=== PATIENT | female | born 1935 | race African-American/Black ===

== ENCOUNTER → 2016-05-24 | Outpatient (CLI) | payer MEDICARE, BC ==
[2016-05-24 12:56] LABS: Anisocytosis Slight; CH 23.4; CHCM 28.7; HCT 35.7 % (34.0-46.0); HGB 10.7 gm/dL (11.4-16.0); Hypochromasia Marked; MCH 24.6 pg (25.0-35.0); MCV 82.2 fL (80.0-100.0); Mean Platelet Volume 6.5; Microcytosis Slight; RBC 4.34 m/uL (3.80-5.40); WBC 4.6 k/uL (3.8-10.6)
[2016-05-24 13:06] LABS: ALT 26 U/L (9-52); AST 27 U/L (14-36); Alkaline Phosphatase 80 U/L (38-126); Anion Gap 10 mmol/L; Blood Urea Nitrogen 14 mg/dL (7-17); Calcium 9.6 mg/dL (8.4-10.2); Carbon Dioxide 29 mmol/L (22-30); Chloride 105 mmol/L (98-107); Cholesterol 115 mg/dL (<200); Glucose 86 mg/dL (74-99); HDL Cholesterol 42 mg/dL (40-60); Non-African American GFR(MDRD) >60 (>60 ml/min/1.73 sqM); Potassium 4.6 mmol/L (3.5-5.1); Sodium 144 mmol/L (137-145); Total Bilirubin 0.5 mg/dL (0.2-1.3); Total Protein 6.6 g/dL (6.3-8.2); Triglycerides 53 mg/dL (<150)
== END ==
LOC: LABWHC1 12:19
PROVIDERS: ATTEND Physician Assistant
DX: I27.2 Other secondary pulmonary hypertension (principal)
CPT/HCPCS: 36415; 80053; 80061; 84443; 85027

== ENCOUNTER 2016-08-18 18:32 | Inpatient (IN) | payer MEDICARE, BC ==
--- NOTE | 2016-08-18 18:47 | ED ---
Weakness HPI - General Chief complaint: Weakness Stated complaint: weakness Time Seen by Provider: 08/18/16 18:36 Source: patient, EMS Mode of arrival: EMS Limitations: no limitations - History of Present Illness Initial comments: This patient is an 81-year-old woman presenting by EMS because she has been feeling increasingly fatigued and having generalized weakness. Patient reports that they she felt like she had no energy at all and decided to be seen here. She was going to drive herself here but in getting ready she became diaphoretic and had some shortness of breath and then she called EMS. On the review of systems, the patient does note having some dark tarry stools recently. She has not had other symptoms of anemia, including no palpitations, lightheadedness, syncope or chest pain. The patient has not had any abdominal pain, nausea or vomiting. She has not passed bright red blood. MD Complaint: generalized weakness, lack of energy -: days(s) Location: generalized Consistency: constant Improves with: none Worsens with: exertion Associated Symptoms: dark stools, diaphoresis - Related Data Home Medications Medication Instructions Recorded Confirmed Ipratropium/Albuterol Sulfate 1 puff INHALATION BID 08/04/13 08/18/16 [Combivent Respimat Inhaler] Isosorbide Mononitrate ER [Imdur] 30 mg PO HS 08/04/13 08/18/16 Pravastatin Sodium [Pravachol] 40 mg PO HS 08/04/13 08/18/16 Aclidinium [place] [Tudorza 1 puff INHALATION BID 04/17/14 08/18/16 Pressair] Anastrozole [Arimidex] 1 mg PO HS 02/22/16 08/18/16 Ascorbic Acid [Vitamin C with Stacy 500 mg PO DAILY 02/22/16 08/18/16 Hips] Aspirin [Adult Low Dose Aspirin EC] 81 mg PO HS 02/22/16 08/18/16 Irbesartan [Avapro] 150 mg PO BID 02/22/16 08/18/16 PARoxetine HCL [Paxil] 10 mg PO HS 02/22/16 08/18/16 Rivaroxaban [Xarelto] 20 mg PO HS 02/22/16 08/18/16 Acetaminophen [Tylenol] 1,000 mg PO BID PRN 08/18/16 08/18/16 Latanoprost [Xalatan 0.005%] 1 drop BOTH EYES HS 08/18/16 08/18/16 Allergies Allergy/AdvReac Type Severity Reaction Status Date / Time No Known Allergies Allergy Verified 08/18/16 19:18 Review of Systems ROS Statement: Those systems with pertinent positive or pertinent negative responses have been documented in the HPI. ROS Other: All systems not noted in ROS Statement are negative. Constitutional: Denies: fever, chills Respiratory: Denies: cough, dyspnea Cardiovascular: Denies: chest pain, palpitations, orthopnea, edema, syncope Gastrointestinal: Reports: melena. Denies: abdominal pain, nausea, vomiting, diarrhea, hematochezia Genitourinary: Denies: dysuria Musculoskeletal: Denies: back pain Skin: Denies: rash Neurological: Denies: headache, weakness, numbness Hematological/Lymphatic: Reports: other (taking xarelto). 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,, emphysema; hypoglycemia, DVT DURING BACK SURGERY-" HIT AN ARTERY " and other from "low sodium", hx breast cancer, History of Any Multi-Drug Resistant Organisms: None Reported Past Surgical History: Back Surgery, Breast Surgery, Cholecystectomy, Heart Catheterization Additional Past Surgical History / Comment(s): L SUBCLAVIAN ARTERY BYPASS, Rt CAROTID ENDARTECTOMY, rt breast lumpectomy Past Anesthesia/Blood Transfusion Reactions: No Reported Reaction Additional Past Anesthesia/Blood Transfusion Reaction / Comment(s): PT RECIEVED BLOOD TRANSFUSION Past Psychological History: Anxiety Smoking Status: Former smoker Past Alcohol Use History: None Reported Past Drug Use History: None Reported - Past Family History Brother(s) Family Medical History: Cancer Sister(s) Family Medical History: Cancer Mother Family Medical History: Coronary Artery Disease (CAD) Additional Family Medical History / Comment(s): enlarged heart Father Family Medical History: Coronary Artery Disease (CAD), CVA/TIA General Exam Limitations: no limitations General appearance: alert, in no apparent distress Head exam: Present: atraumatic, normocephalic Eye exam: Present: other (Conjunctival pallor). Absent: scleral icterus, conjunctival injection ENT exam: Present: normal oropharynx, mucous membranes moist, other (Mucosal pallor) Neck exam: Present: normal inspection Respiratory exam: Present: normal lung sounds bilaterally. Absent: respiratory distress, wheezes, rales, rhonchi, stridor Cardiovascular Exam: Present: regular rate, normal rhythm, normal heart sounds. Absent: systolic murmur, diastolic murmur, rubs, gallop GI/Abdominal exam: Present: soft. Absent: distended, tenderness, guarding, rebound, mass Rectal exam: Present: normal inspection, normal rectal tone, black stool. Absent: hemorrhoids, tenderness Extremities exam: Present: normal inspection, normal capillary refill. Absent: pedal edema, calf tenderness Back exam: Present: normal inspection. Absent: CVA tenderness (R), CVA tenderness (L) Neurological exam: Present: alert Skin exam: Present: warm, dry, intact, pallor. Absent: rash Course Vital Signs 08/18/16 08/18/16 08/18/16 18:33 20:49 22:20 Temperature 98.6 F 97.8 F Pulse Rate 91 77 74 Respiratory 18 18 Rate Blood Pressure 132/60 126/60 139/64 O2 Sat by Pulse 92 L 98 99 Oximetry EKG Findings - EKG Results: EKG: interpreted by VENU GAN, sinus rhythm (Rate 95 bpm), normal axis, normal QRS, normal ST/T, no acute changes - HI, Pacemaker, Normal: Normal tracing: normal tracing Medical Decision Making - Lab Data Result diagrams: 08/18/16 21:14 08/18/16 20:30 Lab Results 08/18/16 08/18/16 08/18/16 Range/Units 20:30 21:14 21:14 WBC 8.8 (3.8-10.6) k/uL RBC 2.52 L (3.80-5.40) m/uL Hgb 5.9 L* (11.4-16.0) gm/dL Hct 21.0 L (34.0-46.0) % MCV 83.4 (80.0-100.0) fL MCH 23.4 L (25.0-35.0) pg MCHC 28.0 L (31.0-37.0) g/dL RDW 19.1 H (11.5-15.5) % Plt Count 313 (150-450) k/uL Neutrophils % 77 % Lymphocytes % 16 % Monocytes % 4 % Eosinophils % 1 % Basophils % 1 % Neutrophils # 6.8 (1.3-7.7) k/uL Lymphocytes # 1.4 (1.0-4.8) k/uL Monocytes # 0.4 (0-1.0) k/uL Eosinophils # 0.1 (0-0.7) k/uL Basophils # 0.1 (0-0.2) k/uL Hypochromasia Marked Poikilocytosis Slight Anisocytosis Slight Microcytosis Slight PT 15.3 H (9.0-12.0) sec INR 1.6 (<1.1) APTT 25.1 (22.0-30.0) sec Sodium 139 (137-145) mmol/L Potassium 4.5 (3.5-5.1) mmol/L Chloride 107 (98-107) mmol/L Carbon Dioxide 22 (22-30) mmol/L Anion Gap 10 mmol/L BUN 42 H (7-17) mg/dL Creatinine 0.84 (0.52-1.04) mg/dL Est GFR (MDRD) Af Amer >60 (>60 ml/min/1.73 sqM) Est GFR (MDRD) Non-Af >60 (>60 ml/min/1.73 sqM) Glucose 96 (74-99) mg/dL Plasma Lactic Acid Jaylon (0.7-2.0) mmol/L Calcium 8.2 L (8.4-10.2) mg/dL Total Bilirubin 0.6 (0.2-1.3) mg/dL AST 73 H (14-36) U/L ALT <6 L (9-52) U/L Alkaline Phosphatase 75 (38-126) U/L Troponin I (0.000-0.034) ng/mL Total Protein 5.6 L (6.3-8.2) g/dL Albumin 3.3 L (3.5-5.0) g/dL Blood Type Blood Type Recheck Antibody Screen Crossmatch Spec Expiration Date 08/18/16 08/18/16 08/18/16 Range/Units 21:14 21:14 21:14 WBC (3.8-10.6) k/uL RBC (3.80-5.40) m/uL Hgb (11.4-16.0) gm/dL Hct (34.0-46.0) % MCV (80.0-100.0) fL MCH (25.0-35.0) pg MCHC (31.0-37.0) g/dL RDW (11.5-15.5) % Plt Count (150-450) k/uL Neutrophils % % Lymphocytes % % Monocytes % % Eosinophils % % Basophils % % Neutrophils # (1.3-7.7) k/uL Lymphocytes # (1.0-4.8) k/uL Monocytes # (0-1.0) k/uL Eosinophils # (0-0.7) k/uL Basophils # (0-0.2) k/uL Hypochromasia Poikilocytosis Anisocytosis Microcytosis PT (9.0-12.0) sec INR (<1.1) APTT (22.0-30.0) sec Sodium (137-145) mmol/L Potassium (3.5-5.1) mmol/L Chloride (98-107) mmol/L Carbon Dioxide (22-30) mmol/L Anion Gap mmol/L BUN (7-17) mg/dL Creatinine (0.52-1.04) mg/dL Est GFR (MDRD) Af Amer (>60 ml/min/1.73 sqM) Est GFR (MDRD) Non-Af (>60 ml/min/1.73 sqM) Glucose (74-99) mg/dL Plasma Lactic Acid Jaylon 1.4 (0.7-2.0) mmol/L Calcium (8.4-10.2) mg/dL Total Bilirubin (0.2-1.3) mg/dL AST (14-36) U/L ALT (9-52) U/L Alkaline Phosphatase (38-126) U/L Troponin I 0.046 H* (0.000-0.034) ng/mL Total Protein (6.3-8.2) g/dL Albumin (3.5-5.0) g/dL Blood Type O Positive Blood Type Recheck No Antibody Screen NEGATIVE Crossmatch See Detail Spec Expiration Date 08/21/2016 - 2313 Disposition Clinical Impression: Anemia, GI bleeding Disposition: ADMITTED IP TO THIS HOSP Condition: Fair
[2016-08-18] MEDS ORDERED: SODIUM CHLORIDE 0.9% 500 ML IV STA (19:13)
[2016-08-18] MEDS ORDERED: PANTOPRAZOLE 40 MG/10 ML VIAL IVP STA (19:13)
--- NOTE | 2016-08-18 20:26 | XR ---
EXAMINATION TYPE: XR chest 1V portable DATE OF EXAM: 08/18/2016 COMPARISON: 04/20/2014 HISTORY: Weakness TECHNIQUE: Single frontal view of the chest is obtained. FINDINGS: There is no heart failure nor confluent pneumonic infiltrate. There are chest leads. Thora cic aorta is atheromatous. There is no definite pleural effusion. There is mild linear density at the right lung base. IMPRESSION: There is probably some atelectasis at the right lung base. No heart failure. There is ov erall probably no change compared to old exam.
[2016-08-18 21:08] LABS: ALT <6 U/L (9-52); AST 73 U/L (14-36); Alkaline Phosphatase 75 U/L (38-126); Anion Gap 10 mmol/L; Blood Urea Nitrogen 42 mg/dL (7-17); Calcium 8.2 mg/dL (8.4-10.2); Carbon Dioxide 22 mmol/L (22-30); Chloride 107 mmol/L (98-107); Glucose 96 mg/dL (74-99); Non-African American GFR(MDRD) >60 (>60 ml/min/1.73 sqM); Potassium 4.5 mmol/L (3.5-5.1); Sodium 139 mmol/L (137-145); Total Bilirubin 0.6 mg/dL (0.2-1.3); Total Protein 5.6 g/dL (6.3-8.2)
[2016-08-18 21:25] LABS: Anisocytosis Slight; Basophils # (A) 0.1 k/uL (0-0.2); Basophils % (A) 1 %; CH 22.4; Eosinophils # (A) 0.1 k/uL (0-0.7); Eosinophils % (A) 1 %; HDW 3.59; Hypochromasia Marked; Luc # (Auto) 0.18; Luc % (Auto) 2; Lymphocytes # (A) 1.4 k/uL (1.0-4.8); Lymphocytes % (A) 16 %; MCH 23.4 pg (25.0-35.0); MCV 83.4 fL (80.0-100.0); Mean Platelet Volume 6.6; Microcytosis Slight; Monocytes # (A) 0.4 k/uL (0-1.0); Monocytes % (A) 4 %; Neutrophils # (A) 6.8 k/uL (1.3-7.7); Neutrophils % (A) 77 %; Poikilocytosis Slight; RBC 2.52 m/uL (3.80-5.40); RDW 19.1 % (11.5-15.5); WBC 8.8 k/uL (3.8-10.6); WBC (Perox) 8.82
[2016-08-18 21:38] LABS: HGB 5.9 gm/dL (11.4-16.0); INR 1.6 (<1.1); Partial Thromboplastin Time 25.1 sec (22.0-30.0); Prothrombin Time 15.3 sec (9.0-12.0)
[2016-08-18] MEDS ORDERED: NALOXONE 0.4 MG/ML 1 ML VIAL IV PRN (21:49)
[2016-08-18] MEDS ORDERED: ONDANSETRON 4 MG/2 ML VIAL IVP PRN (21:49)
[2016-08-18] MEDS ORDERED: SODIUM CHLORIDE 0.9% 1,000 ML IV SCH (22:00)
[2016-08-19 00:07] VITALS: BMI 26.2
[2016-08-19] MEDS: DEXTROSE 5%-0.45% NACL 1,000 ML IV SCH ×2 (06:52→16:54)
[2016-08-19] MEDS: IPRATROPIUM-ALBUTEROL 3 ML NEB INHALATION SCH ×2 (07:16→19:29)
[2016-08-19] MEDS ORDERED: TIOTROPIUM 18 MCG/PUFF INHALER INHALATION SCH (08:00)
[2016-08-19] MEDS: PANTOPRAZOLE 40 MG/10 ML VIAL IV SCH (08:10)
[2016-08-19] MEDS: LOSARTAN 50 MG TAB PO SCH ×2 (08:11→20:42)
[2016-08-19 08:40] LABS: Anisocytosis Slight; CH 24.1; CHCM 30.3; HDW 4.79; Hypochromasia Marked; MCH 25.5 pg (25.0-35.0); MCHC 31.9 g/dL (31.0-37.0); MCV 80.1 fL (80.0-100.0); Mean Platelet Volume 7.5; Microcytosis Slight; Poikilocytosis Marked; RBC 2.36 m/uL (3.80-5.40); RDW 19.2 % (11.5-15.5); WBC 8.7 k/uL (3.8-10.6)
[2016-08-19 08:42] LABS: HCT 18.9 % (34.0-46.0)
[2016-08-19 10:05] LABS: Anion Gap 5 mmol/L; Blood Urea Nitrogen 38 mg/dL (7-17); Calcium 7.9 mg/dL (8.4-10.2); Carbon Dioxide 24 mmol/L (22-30); Chloride 113 mmol/L (98-107); Glucose 84 mg/dL (74-99); Non-African American GFR(MDRD) >60 (>60 ml/min/1.73 sqM); Potassium 4.2 mmol/L (3.5-5.1); Sodium 142 mmol/L (137-145)
[2016-08-19] MEDS: ASCORBIC ACID 500 MG TAB PO SCH (11:12)
--- NOTE | 2016-08-19 12:31 | CONS ---
DATE OF CONSULTATION: REASON FOR CONSULTATION: Severe symptomatic anemia and melena. HISTORY OF PRESENT ILLNESS: The patient is an 81-year-old pleasant female came to the emergency room complaining of tired, weakness, not feeling well, unsteady for the last one month duration. She was also complaining of black, tarry stools for the last 2 days' duration. She has history of DVT in the past and has been on Xarelto for the last one year. T he last dose she took was yesterday evening. She came to the ER and was noted to have a hemoglobin of 5.6 and so far has had 15 units of blood transfusion and repeat CBC is pending. Denies any prior history of peptic ulcer disease. No recent NSAID use other than occasional Motrin as needed. No prior history of peptic ulcer disease. She recalls having a colonoscopy about a year ago in [place] and according to her was noted to have a polyp. Presently denies any abdominal pain. No nausea or vomiting. No heartburn. PAST MEDICAL HISTORY: Significant for COPD, hypertension, hypercholesterolemia, history of breast cancer, anxiety, depression, DVT., CVA in the past. MEDICATIONS AT HOME: Tylenol, Xarelto, Paxil, Avapro, aspirin, vitamin C, ( ), Tudorza, albuterol, Pravachol and Imdur. ALLERGIES: None. PAST SURGICAL HISTORY: Back surgery, colonoscopy a year ago, cholecystectomy, cardiac cath, subclavian artery bypass. FAMILY HISTORY: Brother had some kind of cancer. Mother had coronary artery disease and congestive heart failure. SOCIAL HISTORY: No smoking or alcohol use. REVIEW OF SYSTEMS: CARDIOPULMONARY: No chest pain or shortness of breath. GENITOURINARY: No dysuria or hematuria. MUSCULOSKELETAL: Unremarkable. SKIN: Unremarkable. ENDOCRINE: Unremarkable. PSYCHIATRIC: Unremarkable. NEUROLOGY: Unremarkable. ENT: Unremarkable. CONSTITUTIONAL: No recent weight loss. No fever, chills, night sweats On physical examination, she appears comfortable, in no apparent distress. Vitals as are stable. Blood is 148/65, temperature 98 and pulse 86. HEENT EXAMINATION: Unremarkable. Conjunctivae pink. Sclerae anicteric. Oral cavity, no lesions. NECK: No JVD or lymph node enlargement. CHEST: Clear to auscultation. HEART: Regular rate and rhythm. ABDOMEN: Soft. Bowel sounds are positive. No organomegaly. EXTREMITIES: No pedal edema. SKIN: No rashes. NEURO: She is alert and oriented x3. No focal deficits. Labs from yesterday, WBC 8.8, hemoglobin 5.9, and platelets 313. PT 15.3, INR 1.6, BUN is 32, creatinine 0.8. LFTs are normal. Troponin 0.046. Stool occult test positive. Repeat CBC from this morning is pending. IMPRESSION: 1. This lady presented with severe fatigue, weakness for the last 2 weeks' duration and hemoglobin of 5.6 g/dL. She has been having intermittent black, tarry stools for the last 2 days' duration, most likely upper gastrointestinal source of bleeding though she remains clinically and hemodynamically stable. She received 1 unit of blood and repeat CBC is still pending at the time of this dictation. 2. History of DVT on Xarelto. The last dose was last night. Presently on hold. RECOMMENDATIONS: 1. Continue with IV Protonix 40 mg q.12. 2. Start on clear liquid diet. 3. Will proceed with an upper endoscopy tomorrow. 4. Discussed with the patient risks, benefits and complications and she is agreeable to it. 5. Transfuse as needed if the hemoglobin is less than 7. Thank you for this consultation.
--- NOTE | 2016-08-19 12:31 | P.HPIM ---
History of Present Illness H&P Date: 08/19/16 Chief Complaint: Generalized fatigue This is a 81-year-old female with past medical history noted below significant for history of DVT involving the left lower extremity on anticoagulation with Rivaroxaban and at home who presented to the emergency room with worsening fatigue and tiredness. Patient said for the past several weeks she noted low energy and generalized fatigue. She said that she was wanting normal bowel movement but occasionally maybe once or twice she noted black tarry stool. She denies any bright red blood in stool. She denies chest pain or shortness of breath. Yesterday she was more fatigued and tired and decided to come to the emergency room for further evaluation. CBC in the emergency room showed hemoglobin of 5.9. Patient was hemodynamically stable. She was in no distress. She was admitted to the hospital for further evaluation. She received 1 unit of PRBC while since admission with no significant improvement in her hemoglobin. I ordered 2 more unit this morning. Review of Systems Review of system: 14 points review of systems were obtained and were negative except to what were mentioned in the HPI. 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,, emphysema; hypoglycemia, DVT DURING BACK SURGERY-" HIT AN ARTERY " and other from "low sodium", hx breast cancer, History of Any Multi-Drug Resistant Organisms: None Reported Past Surgical History: Back Surgery, Breast Surgery, Cholecystectomy, Heart Catheterization Additional Past Surgical History / Comment(s): L SUBCLAVIAN ARTERY BYPASS, Rt CAROTID ENDARTECTOMY, rt breast lumpectomy Past Anesthesia/Blood Transfusion Reactions: No Reported Reaction Additional Past Anesthesia/Blood Transfusion Reaction / Comment(s): PT RECIEVED BLOOD TRANSFUSION Past Psychological History: Anxiety Smoking Status: Former smoker Past Alcohol Use History: None Reported Past Drug Use History: None Reported - Past Family History Brother(s) Family Medical History: Cancer Sister(s) Family Medical History: Cancer Mother Family Medical History: Coronary Artery Disease (CAD) Additional Family Medical History / Comment(s): enlarged heart Father Family Medical History: Coronary Artery Disease (CAD), CVA/TIA Medications and Allergies Home Medications Medication Instructions Recorded Confirmed Type Ipratropium/Albuterol Sulfate 1 puff INHALATION BID 08/04/13 08/18/16 History [Combivent Respimat Inhaler] Isosorbide Mononitrate ER [Imdur] 30 mg PO HS 08/04/13 08/18/16 History Pravastatin Sodium [Pravachol] 40 mg PO HS 08/04/13 08/18/16 History Aclidinium [place] [Tudorza 1 puff INHALATION BID 04/17/14 08/18/16 History Pressair] Anastrozole [Arimidex] 1 mg PO HS 02/22/16 08/18/16 History Ascorbic Acid [Vitamin C with Stacy 500 mg PO DAILY 02/22/16 08/18/16 History Hips] Aspirin [Adult Low Dose Aspirin EC] 81 mg PO HS 02/22/16 08/18/16 History Irbesartan [Avapro] 75 mg PO DAILY 02/22/16 08/19/16 History PARoxetine HCL [Paxil] 10 mg PO HS 02/22/16 08/18/16 History Rivaroxaban [Xarelto] 20 mg PO HS 02/22/16 08/18/16 History Acetaminophen [Tylenol] 1,000 mg PO BID PRN 08/18/16 08/18/16 History Latanoprost [Xalatan 0.005%] 1 drop BOTH EYES HS 08/18/16 08/18/16 History Allergies Allergy/AdvReac Type Severity Reaction Status Date / Time No Known Allergies Allergy Verified 08/18/16 19:18 Physical Exam Vitals: Vital Signs Temp Pulse Pulse Resp BP BP Pulse Ox 08/19/16 11:09 98.2 F 72 16 147/68 08/19/16 10:39 98.3 F 65 16 137/63 08/19/16 09:58 98.2 F 75 16 144/65 08/19/16 08:00 86 16 08/19/16 07:25 84 08/19/16 07:16 84 08/19/16 07:00 98.2 F 86 16 148/65 90 L 08/19/16 02:51 98.5 F 80 16 134/60 08/19/16 00:19 98.2 F 85 138/65 93 L 08/19/16 00:00 82 16 08/18/16 23:49 98.3 F 82 16 113/56 08/18/16 23:39 98.1 F 87 16 112/48 08/18/16 22:50 98.2 F 72 16 170/72 98 08/18/16 22:20 97.8 F 74 18 139/64 99 08/18/16 20:49 77 18 126/60 98 08/18/16 18:33 98.6 F 91 132/60 92 L Intake and Output 08/18/16 08/19/16 08/19/16 22:59 06:59 14:59 Intake Total 760 0 Balance 760 0 Intake: Intake, IV Titration 450 Amount Sodium Chloride 0.9% 1, 450 000 ml @ 75 mls/hr IV . [id number] [facility] Rx#:[id number] Blood Product 310 0 Rc As-1 Unit 0 [id number] Rc Pheresis As-3 Unit 310 [id number] Other: Voiding Method Bedside Commode Bedside Commode # Voids 1 1 # Bowel Movements 1 Weight 71.668 kg General: The patient is awake and alert, in no distress Eye: there is normal conjunctiva bilaterally. Neck: The neck is supple, there is no JVD. Cardiovascular: Normal S1-S2, no S3-S4, no murmurs. Respiratory: Lungs clear to auscultation bilaterally Gastrointestinal: Abdomen is soft, nontender Musculoskeletal: There is no pedal edema. Neurological:. Speech is normal. Skin: Skin is warm and dry Results CBC & Chem 7: 08/19/16 08:02 08/19/16 08:02 Labs: Abnormal Lab Results - Last 24 Hours (Table) 08/18/16 08/18/16 08/18/16 Range/Units 20:30 21:14 21:14 RBC 2.52 L (3.80-5.40) m/uL Hgb 5.9 L* (11.4-16.0) gm/dL Hct 21.0 L (34.0-46.0) % MCH 23.4 L (25.0-35.0) pg MCHC 28.0 L (31.0-37.0) g/dL RDW 19.1 H (11.5-15.5) % PT 15.3 H (9.0-12.0) sec Chloride (98-107) mmol/L BUN 42 H (7-17) mg/dL Calcium 8.2 L (8.4-10.2) mg/dL AST 73 H (14-36) U/L ALT <6 L (9-52) U/L Troponin I (0.000-0.034) ng/mL Total Protein 5.6 L (6.3-8.2) g/dL Albumin 3.3 L (3.5-5.0) g/dL Stool Occult Blood (Negative) Crossmatch 08/18/16 08/18/16 08/18/16 Range/Units 21:14 21:14 22:11 RBC (3.80-5.40) m/uL Hgb (11.4-16.0) gm/dL Hct (34.0-46.0) % MCH (25.0-35.0) pg MCHC (31.0-37.0) g/dL RDW (11.5-15.5) % PT (9.0-12.0) sec Chloride (98-107) mmol/L BUN (7-17) mg/dL Calcium (8.4-10.2) mg/dL AST (14-36) U/L ALT (9-52) U/L Troponin I 0.046 H* (0.000-0.034) ng/mL Total Protein (6.3-8.2) g/dL Albumin (3.5-5.0) g/dL Stool Occult Blood Positive H (Negative) Crossmatch See Detail 08/19/16 08/19/16 Range/Units 08:02 08:02 RBC 2.36 L (3.80-5.40) m/uL Hgb 6.0 L* (11.4-16.0) gm/dL Hct 18.9 L* (34.0-46.0) % MCH (25.0-35.0) pg MCHC (31.0-37.0) g/dL RDW 19.2 H (11.5-15.5) % PT (9.0-12.0) sec Chloride 113 H (98-107) mmol/L BUN 38 H (7-17) mg/dL Calcium 7.9 L (8.4-10.2) mg/dL AST (14-36) U/L ALT (9-52) U/L Troponin I (0.000-0.034) ng/mL Total Protein (6.3-8.2) g/dL Albumin (3.5-5.0) g/dL Stool Occult Blood (Negative) Crossmatch Thrombosis Risk Factor Assmnt - Choose All That Apply Each Risk Factor Represents 3 Points: Age 75 years or older, History of DVT/PE Thrombosis Risk Factor Assessment Total Risk Factor Score: 6 Thrombosis Risk Factor Assessment Level: High Risk Assessment and Plan Plan: 1. Acute on chronic blood loss anemia with hemoglobin of 5.9 on presentation. Blood transfusion ordered for today. Patient is hemodynamically stable. 2. Suspected chronic upper GI bleed: Patient was seen and evaluated by gastroenterology. Plan for EGD tomorrow. 3. History of left lower extremity DVT on anticoagulation with Rivaroxaban and at home. I advised to discontinue anticoagulation permanently 4. Underlying COPD with no evidence of exacerbation 5. Essential hypertension: Blood pressure well-controlled Today, I reviewed her medication list lab work results. Ordered to transfuse 2 more unit of blood. Continue IV fluid hydration. Plan for EGD in the morning.
[2016-08-19] MEDS: PRAVASTATIN SODIUM 40 MG TAB PO SCH (20:42)
[2016-08-19] MEDS: ANASTROZOLE 1 MG TAB PO SCH (20:42)
[2016-08-19] MEDS: LATANOPROST 0.005% OPHTH DROPS 2.5 ML BTL BOTH EYES SCH (20:42)
[2016-08-19] MEDS: PARoxetine 10 MG TAB PO SCH (20:42)
[2016-08-19] MEDS: ASPIRIN 81 MG CHEW PO SCH (20:42)
[2016-08-19] MEDS: ISOSORBIDE MONONITRATE ER 30 MG TAB.ER.24H PO SCH (20:42)
[2016-08-19 21:08] LABS: Anisocytosis Slight; Basophils # (A) 0.1 k/uL (0-0.2); Basophils % (A) 1 %; CH 26.5; CHCM 31.1; Eosinophils # (A) 0.3 k/uL (0-0.7); Eosinophils % (A) 3 %; HCT 25.3 % (34.0-46.0); HDW 4.79; Hypochromasia Marked; Luc # (Auto) 0.28; Luc % (Auto) 3; Lymphocytes # (A) 2.4 k/uL (1.0-4.8); Lymphocytes % (A) 23 %; MCH 28.6 pg (25.0-35.0); MCHC 33.5 g/dL (31.0-37.0); Mean Platelet Volume 7.3; Monocytes # (A) 0.7 k/uL (0-1.0); Monocytes % (A) 7 %; Neutrophils # (A) 6.5 k/uL (1.3-7.7); Neutrophils % (A) 64 %; Poikilocytosis Marked; RBC 2.97 m/uL (3.80-5.40); RDW 18.4 % (11.5-15.5); WBC 10.1 k/uL (3.8-10.6); WBC (Perox) 10.51
[2016-08-19 21:10] LABS: HGB 8.5 gm/dL (11.4-16.0)
[2016-08-19 21:11] LABS: MCV 85.2 fL (80.0-100.0)
[2016-08-20 07:47] LABS: Anion Gap 5 mmol/L; Blood Urea Nitrogen 22 mg/dL (7-17); Calcium 7.6 mg/dL (8.4-10.2); Carbon Dioxide 25 mmol/L (22-30); Chloride 112 mmol/L (98-107); Glucose 86 mg/dL (74-99); Non-African American GFR(MDRD) >60 (>60 ml/min/1.73 sqM); Potassium 4.4 mmol/L (3.5-5.1); Sodium 142 mmol/L (137-145)
[2016-08-20 07:49] LABS: Anisocytosis Slight; Basophils % (A) 1 %; CH 26.3; CHCM 31.1; Eosinophils # (A) 0.4 k/uL (0-0.7); Eosinophils % (A) 4 %; HCT 24.1 % (34.0-46.0); HDW 4.91; HGB 7.9 gm/dL (11.4-16.0); Hypochromasia Marked; Luc # (Auto) 0.28; Luc % (Auto) 3; Lymphocytes # (A) 1.9 k/uL (1.0-4.8); Lymphocytes % (A) 19 %; MCH 27.8 pg (25.0-35.0); MCHC 32.8 g/dL (31.0-37.0); MCV 84.8 fL (80.0-100.0); Mean Platelet Volume 7.4; Monocytes # (A) 0.7 k/uL (0-1.0); Monocytes % (A) 8 %; Neutrophils # (A) 6.5 k/uL (1.3-7.7); Neutrophils % (A) 66 %; Poikilocytosis Marked; RBC 2.84 m/uL (3.80-5.40); RDW 18.4 % (11.5-15.5); WBC 9.7 k/uL (3.8-10.6); WBC (Perox) 10.38
[2016-08-20] MEDS ORDERED: LIDOCAINE 1% INJ 10MG/ML (20 ML MDV) ONE (08:07)
[2016-08-20] MEDS ORDERED: PROPOFOL 10 MG/ML 20 ML VIAL IV ONE (08:07)
--- NOTE | 2016-08-20 08:29 | P.PCN ---
Date of Procedure: 08/20/16 Preoperative Diagnosis: Postoperative Diagnosis: Procedure(s) Performed: BRIEF HISTORY: Patient is a 81-year-old, pleasant, white female, scheduled for an upper endoscopy as part of evaluation of severe symptomatic anemia and intermittent black tarry stools for the last 3 days' duration. She presents to the hospital with a hemoglobin of 5.6 requiring 2 units of blood transfusion last hemoglobin is 7.5 g/dL. She has been on Xarelto for DVT which has been on hold for the last 2 days. PROCEDURE PERFORMED: Esophagogastroduodenoscopy with injection epinephrine and cautery with a gold probe. PREOPERATIVE DIAGNOSIS: Melena and severe symptomatic anemia IV sedation per anesthesia. PROCEDURE: After informed consent was obtained, the patient was brought into the endoscopy unit. IV sedation was administered by Anesthesia under continuous monitoring. Initially the Olympus GIF-140 video endoscope was inserted into the mouth. Esophagus intubated without any difficulty. It was gradually advanced into the stomach and duodenum and carefully examined. The bulb and the second part of the duodenum appeared normal. The scope at this time was withdrawn to the stomach, adequately insufflated with air, and upon careful examination, there was fresh blood noted in the proximal body the stomach. Irrigation was performed. The mucosa of the antrum, appeared normal. In the proximal body of the stomach there were 3 arteriovenous malformation identified, the largest measuring about 6-7 mm with active oozing. The cardia and the fundus appeared normal. At this time initially injected with 1 in 10,000 epinephrine and total of 3 mL was injected at the site of oozing. Following this using a gold probe cautery was performed with good hemostasis. There were 2 small nonbleeding arterial venous malformation suggested to this area and these were also cauterized using the Gold probe. The scope was then withdrawn into the esophagus. Small hiatal hernia noted. The GE junction was located at 39 cm from the incisors. The esophagus appeared normal. There were no erosions or ulcerations seen and the patient tolerated the procedure well. IMPRESSION: 1. 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 2. 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 RECOMMENDATIONS: The findings of this examination were discussed with the patient. She will be started on clear liquid diet today and if her hemoglobin is stable, the diet can be this advance as tolerated. Implants: Indications for Procedure: Operative Findings: Description of Procedure:
[2016-08-20] MEDS: IPRATROPIUM-ALBUTEROL 3 ML NEB INHALATION SCH ×2 (08:49→21:51)
[2016-08-20] MEDS: PANTOPRAZOLE 40 MG/10 ML VIAL IV SCH (09:10)
[2016-08-20] MEDS: DEXTROSE 5%-0.45% NACL 1,000 ML IV SCH ×2 (11:01→18:25)
[2016-08-20] MEDS: LOSARTAN 50 MG TAB PO SCH ×2 (11:02→20:55)
--- NOTE | 2016-08-20 13:59 | P.PN ---
Subjective Patient is doing well today. She underwent EGD this morning. Objective - Vital Signs Vital signs: Vital Signs Temp 98.0 F 08/20/16 07:00 Pulse 52 L 08/20/16 10:45 Resp 18 08/20/16 08:00 BP 134/65 08/20/16 10:45 Pulse Ox 93 L 08/20/16 07:00 Intake & Output 08/19/16 08/20/16 08/20/16 18:59 06:59 18:59 Intake Total 1360 900 Balance 1360 900 Weight 71.668 kg Intake: Intake, IV Titration 200 900 Amount Dextrose 5%-0.45% NaCl 1, 300 000 ml @ 100 mls/hr IV . Q10H [facility] Rx#:[id number] Sodium Chloride 0.9% 1, 200 600 000 ml @ 75 mls/hr IV . [id number] [facility] Rx#:[id number] Oral 440 Blood Product 620 Rc As-1 Unit 0 [id number] Rc As-1 Unit 310 [id number] Other 100 Rc As-1 Unit 100 [id number] Other: Voiding Method Bedside Commode Bedside Commode Bedside Commode # Voids 1 1 1 # Bowel Movements 1 - Exam General: The patient is awake and alert, in no distress Eye: there is normal conjunctiva bilaterally. Neck: The neck is supple, there is no JVD. Cardiovascular: Normal S1-S2, no S3-S4, no murmurs. Respiratory: Lungs clear to auscultation bilaterally Gastrointestinal: Abdomen is soft, nontender Musculoskeletal: There is no pedal edema. Neurological:. Speech is normal. Skin: Skin is warm and dry - Labs CBC & Chem 7: 08/20/16 06:50 08/20/16 06:56 Labs: Abnormal Lab Results - Last 24 Hours (Table) 08/18/16 08/19/16 08/20/16 Range/Units 21:14 20:54 06:50 RBC 2.97 L 2.84 L (3.80-5.40) m/uL Hgb 8.5 L D 7.9 L (11.4-16.0) gm/dL Hct 25.3 L 24.1 L (34.0-46.0) % RDW 18.4 H 18.4 H (11.5-15.5) % Chloride (98-107) mmol/L BUN (7-17) mg/dL Calcium (8.4-10.2) mg/dL Crossmatch See Detail 08/20/16 Range/Units 06:56 RBC (3.80-5.40) m/uL Hgb (11.4-16.0) gm/dL Hct (34.0-46.0) % RDW (11.5-15.5) % Chloride 112 H (98-107) mmol/L BUN 22 H (7-17) mg/dL Calcium 7.6 L (8.4-10.2) mg/dL Crossmatch Assessment and Plan Plan: 1. Acute on chronic blood loss anemia with hemoglobin of 5.9 on presentation. Status post 3 units of PRBC transfusion since admission Patient is hemodynamically stable. 2. 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 History of left lower extremity DVT on anticoagulation with Rivaroxaban and at home. I advised to discontinue anticoagulation permanently 4. Underlying COPD with no evidence of exacerbation 5. Essential hypertension: Blood pressure well-controlled Today, I reviewed her medication list lab work results. Continue current regimen. Started on liquid diet. Advance diet as advised by GI.
[2016-08-20] MEDS: ASCORBIC ACID 500 MG TAB PO SCH (18:16)
[2016-08-20] MEDS: PARoxetine 10 MG TAB PO SCH (20:55)
[2016-08-20] MEDS: PRAVASTATIN SODIUM 40 MG TAB PO SCH (20:55)
[2016-08-20] MEDS: ASPIRIN 81 MG CHEW PO SCH (20:55)
[2016-08-20] MEDS: LATANOPROST 0.005% OPHTH DROPS 2.5 ML BTL BOTH EYES SCH (20:55)
[2016-08-20] MEDS: ISOSORBIDE MONONITRATE ER 30 MG TAB.ER.24H PO SCH (20:55)
[2016-08-20] MEDS: ANASTROZOLE 1 MG TAB PO SCH (20:55)
[2016-08-21 06:58] LABS: Anisocytosis Slight; Basophils % (A) 0 %; CH 26.5; CHCM 30.2; Eosinophils # (A) 0.2 k/uL (0-0.7); Eosinophils % (A) 2 %; HCT 22.5 % (34.0-46.0); HDW 4.63; Hypochromasia Marked; Luc # (Auto) 0.12; Luc % (Auto) 1; Lymphocytes # (A) 0.9 k/uL (1.0-4.8); Lymphocytes % (A) 11 %; MCH 26.9 pg (25.0-35.0); MCHC 30.5 g/dL (31.0-37.0); MCV 88.1 fL (80.0-100.0); Mean Platelet Volume 7.3; Monocytes # (A) 0.6 k/uL (0-1.0); Monocytes % (A) 7 %; Neutrophils # (A) 6.7 k/uL (1.3-7.7); Neutrophils % (A) 79 %; Poikilocytosis Marked; RBC 2.56 m/uL (3.80-5.40); RDW 18.7 % (11.5-15.5); WBC 8.5 k/uL (3.8-10.6); WBC (Perox) 8.34
[2016-08-21 07:01] LABS: HGB 6.9 gm/dL (11.4-16.0)
[2016-08-21 07:21] LABS: Anion Gap 18 mmol/L; Blood Urea Nitrogen 15 mg/dL (7-17); Calcium 7.5 mg/dL (8.4-10.2); Carbon Dioxide 21 mmol/L (22-30); Chloride 113 mmol/L (98-107); Glucose 149 mg/dL (74-99); Non-African American GFR(MDRD) >60 (>60 ml/min/1.73 sqM); Potassium 4.6 mmol/L (3.5-5.1); Sodium 152 mmol/L (137-145)
[2016-08-21] MEDS: LOSARTAN 50 MG TAB PO SCH ×2 (07:49→22:06)
[2016-08-21] MEDS: PANTOPRAZOLE 40 MG/10 ML VIAL IV SCH (07:49)
[2016-08-21] MEDS: IPRATROPIUM-ALBUTEROL 3 ML NEB INHALATION SCH ×2 (07:55→21:30)
[2016-08-21] MEDS ORDERED: FUROSEMIDE 10 MG/ML 2 ML VIAL IV ONE (11:15)
--- NOTE | 2016-08-21 11:23 | P.PN ---
Subjective Patient presented with black tarry stools. She was found have evidence of GI bleed. She underwent EGD which did show AVMs that required cauterization. She is currently on IV Protonix. She required blood transfusions. Hemoglobin is now again down at 6.9. She's receiving another unit of blood with Lasix today. Xarelto that she takes for her DVT in the leg has been discontinued. Patient denies any further black stools. She reports no bowel movement since she's been in the hospital. No nausea or vomiting. No abdominal pain. Denies any chest pain or shortness of breath. Denies any burning with urination Objective - Vital Signs Vital signs: Vital Signs Temp 99.4 F 08/21/16 07:00 Pulse 74 08/21/16 08:00 Resp 16 08/21/16 08:00 BP 111/48 08/21/16 07:00 Pulse Ox 99 08/21/16 07:00 Intake & Output 08/20/16 08/21/16 08/21/16 18:59 06:59 18:59 Intake Total 590 Balance 590 Weight 71.668 kg Intake: Oral 590 Other: Voiding Method Bedside Commode Bedside Commode Bedside Commode # Voids 1 1 - Exam Head normocephalic Neck supple Lungs clear to auscultation bilaterally no wheezing or crackles Heart regular rate and rhythm S1-S2, no rub or gallop Abdomen is soft nontender nondistended positive bowel sounds no hepatosplenomegaly Extremities no edema Neuro alert and orientated to 3 - Labs CBC & Chem 7: 08/21/16 06:29 08/21/16 06:29 Labs: Abnormal Lab Results - Last 24 Hours (Table) 08/18/16 08/21/16 08/21/16 Range/Units 21:14 06:29 06:29 RBC 2.56 L (3.80-5.40) m/uL Hgb 6.9 L* (11.4-16.0) gm/dL Hct 22.5 L (34.0-46.0) % MCHC 30.5 L (31.0-37.0) g/dL RDW 18.7 H (11.5-15.5) % Lymphocytes # 0.9 L (1.0-4.8) k/uL Sodium 152 H (137-145) mmol/L Chloride 113 H (98-107) mmol/L Carbon Dioxide 21 L (22-30) mmol/L Glucose 149 H (74-99) mg/dL Calcium 7.5 L (8.4-10.2) mg/dL Crossmatch See Detail Assessment and Plan Plan: 1. Acute on chronic blood loss anemia with hemoglobin of 5.9 on presentation. Secondary to GI bleeding from AVMs. Status post 4 units of PRBC transfusion since admission Patient is hemodynamically stable. Patient's hemoglobin is 6.9. She is receiving another unit of blood today with Lasix 20 mg afterwards 2. 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 History of left lower extremity DVT on anticoagulation with Rivaroxaban and at home. I advised to discontinue anticoagulation permanently 4. Underlying COPD with no evidence of exacerbation 5. Essential hypertension: Blood pressure well-controlled 6. Hypernatremia: Sodium level 152 chloride level 113. IV fluids discontinued yesterday. Repeat labs in morning GI prophylaxis Protonix and DVT prophylaxis SCDs I performed an examination of the patient and discussed their management with the physician Lumber Scaler. I have reviewed the Physician Lumber Scaler's notes and agree with the documented findings and plan of care
[2016-08-21] MEDS: ASCORBIC ACID 500 MG TAB PO SCH (13:12)
--- NOTE | 2016-08-21 15:09 | PN ---
Patient is an 81-year-old pleasant lady admitted to the hospital with acute GI bleed. She had multiple episodes of black, tarry stools and hemoglobin of 5.9. Received a total of 2 units so far and today her hemoglobin is down to 6.9. Yesterday, she had an upper endoscopy that showed gastric bleeding, arteriovenous malformation that was cauterized and injected. Patient denies any further episodes of black, tarry stools. Xarelto is on hold for 2 days. On physical examination, appears comfortable in no apparent distress. Vital signs are stable. Blood pressure is 111/48, pulse of 74, temperature 98. HEENT EXAMINATION: Unremarkable. Conjunctivae are pink. Sclerae nonicteric. Oral cavity, no lesions. NECK: No JVD or lymph node enlargement. Chest was clear to auscultation. HEART: Regular rate and rhythm. ABDOMEN: Soft. Bowel sounds are positive. No organomegaly. EXTREMITIES: No pedal edema. SKIN: No rashes. NEURO: Alert and oriented x3. No cyanosis. LABS: WBC 8.3, hemoglobin 6.9, platelets 253, BUN 15, creatinine 0.67. 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 No further episodes of bleeding. She dropped hemoglobin from 7.9 to 6.9, but clinically no active bleeding. Xarelto on hold for the last 2 days. RECOMMENDATIONS: 1. Transfuse 1 unit of blood. 2. Continue with IV Protonix. 3. Advanced to a full liquid diet. 4. CBC in the morning and will follow her closely.
[2016-08-21] MEDS: DEXTROSE 5% IN WATER 1,000 ML IV SCH (16:45)
[2016-08-21 19:10] LABS: Anisocytosis Slight; Basophils # (A) 0.1 k/uL (0-0.2); Basophils % (A) 1 %; CH 26.6; CHCM 29.9; Eosinophils # (A) 0.2 k/uL (0-0.7); Eosinophils % (A) 2 %; HCT 24.6 % (34.0-46.0); HGB 7.2 gm/dL (11.4-16.0); Hypochromasia Marked; Luc # (Auto) 0.13; Luc % (Auto) 1; Lymphocytes # (A) 1.2 k/uL (1.0-4.8); Lymphocytes % (A) 13 %; MCHC 29.2 g/dL (31.0-37.0); Mean Platelet Volume 7.3; Monocytes # (A) 0.5 k/uL (0-1.0); Monocytes % (A) 6 %; Neutrophils # (A) 6.9 k/uL (1.3-7.7); Neutrophils % (A) 77 %; Poikilocytosis Moderate; RBC 2.76 m/uL (3.80-5.40); RDW 18.7 % (11.5-15.5); WBC 8.9 k/uL (3.8-10.6); WBC (Perox) 8.71
[2016-08-21] MEDS: PARoxetine 10 MG TAB PO SCH (22:06)
[2016-08-21] MEDS: PRAVASTATIN SODIUM 40 MG TAB PO SCH (22:06)
[2016-08-21] MEDS: ANASTROZOLE 1 MG TAB PO SCH (22:06)
[2016-08-21] MEDS: ASPIRIN 81 MG CHEW PO SCH (22:06)
[2016-08-21] MEDS: ISOSORBIDE MONONITRATE ER 30 MG TAB.ER.24H PO SCH (22:06)
[2016-08-21] MEDS: LATANOPROST 0.005% OPHTH DROPS 2.5 ML BTL BOTH EYES SCH (22:06)
[2016-08-22 01:45] LABS: Anisocytosis Slight; Basophils # (A) 0.1 k/uL (0-0.2); Basophils % (A) 1 %; CH 25.9; CHCM 30.6; Eosinophils # (A) 0.2 k/uL (0-0.7); Eosinophils % (A) 2 %; HCT 22.2 % (34.0-46.0); HDW 4.86; HGB 7.2 gm/dL (11.4-16.0); Hypochromasia Marked; Luc # (Auto) 0.23; Luc % (Auto) 3; Lymphocytes # (A) 1.1 k/uL (1.0-4.8); Lymphocytes % (A) 12 %; MCH 27.6 pg (25.0-35.0); MCHC 32.5 g/dL (31.0-37.0); MCV 84.8 fL (80.0-100.0); Mean Platelet Volume 7.5; Monocytes # (A) 0.7 k/uL (0-1.0); Monocytes % (A) 8 %; Neutrophils # (A) 6.7 k/uL (1.3-7.7); Neutrophils % (A) 75 %; Poikilocytosis Marked; RBC 2.62 m/uL (3.80-5.40); RDW 18.7 % (11.5-15.5); WBC 8.9 k/uL (3.8-10.6); WBC (Perox) 9.24
[2016-08-22 02:13] LABS: Manual Review Performed
[2016-08-22 02:18] LABS: Polychromasia Present
[2016-08-22] MEDS: IPRATROPIUM-ALBUTEROL 3 ML NEB INHALATION SCH ×2 (07:25→20:48)
[2016-08-22 07:44] LABS: Anisocytosis Slight; Basophils # (A) 0.1 k/uL (0-0.2); Basophils % (A) 1 %; CH 26.3; CHCM 30.1; Eosinophils # (A) 0.2 k/uL (0-0.7); Eosinophils % (A) 2 %; HCT 24.6 % (34.0-46.0); HDW 4.69; HGB 7.6 gm/dL (11.4-16.0); Hypochromasia Marked; Luc # (Auto) 0.24; Luc % (Auto) 3; Lymphocytes # (A) 1.5 k/uL (1.0-4.8); Lymphocytes % (A) 17 %; MCH 27.1 pg (25.0-35.0); MCHC 30.8 g/dL (31.0-37.0); MCV 87.8 fL (80.0-100.0); Mean Platelet Volume 7.1; Monocytes # (A) 0.8 k/uL (0-1.0); Monocytes % (A) 9 %; Neutrophils % (A) 69 %; Poikilocytosis Marked; RDW 18.7 % (11.5-15.5); WBC 8.7 k/uL (3.8-10.6); WBC (Perox) 7.98
[2016-08-22] MEDS: LOSARTAN 50 MG TAB PO SCH ×2 (08:17→20:06)
[2016-08-22] MEDS: PANTOPRAZOLE 40 MG/10 ML VIAL IV SCH (08:17)
[2016-08-22 08:21] LABS: Anion Gap 6 mmol/L; Blood Urea Nitrogen 9 mg/dL (7-17); Calcium 7.8 mg/dL (8.4-10.2); Carbon Dioxide 27 mmol/L (22-30); Chloride 108 mmol/L (98-107); Glucose 93 mg/dL (74-99); Non-African American GFR(MDRD) >60 (>60 ml/min/1.73 sqM); Potassium 4.5 mmol/L (3.5-5.1); Sodium 141 mmol/L (137-145)
--- NOTE | 2016-08-22 10:10 | P.PN ---
Subjective Principal diagnosis: GI bleed 81-year-old female admitted with black colored bowel movements. Status post EGD with gastric AVM cautery. Hemoglobin today 7.2 unchanged from yesterday. Denies GI bleeding. Denies abdominal pain. Patient only received 1 unit blood transfusion yesterday secondary to poor IV access possible PICC line insertion today. Objective - Vital Signs Vital signs: Vital Signs Temp 98.6 F 08/22/16 07:00 Pulse 85 08/22/16 08:00 Resp 18 08/22/16 08:00 BP 112/73 08/22/16 07:00 Pulse Ox 96 08/22/16 07:00 Intake & Output 08/21/16 08/22/16 08/22/16 18:59 06:59 18:59 Intake Total 310 480 Balance 310 480 Weight 71.668 kg 71.668 kg Intake: Oral 200 480 Blood Product 110 Rc As-1 Unit 110 [id number] Other: Voiding Method Bedside Commode Bedside Commode Bedside Commode # Voids 1 1 1 - Exam General appearance: The patient is alert, oriented, in no acute distress. HET: Head is normocephalic and atraumatic. Pupils are equal and reactive. Oropharynx is clear without lesions. Neck: Supple without lymphadenopathy. Trachea midline. Heart: S1 S2. Regular rate and rhythm. Lungs: No crackles or wheezes are heard. Abdomen: Soft, nontender, nondistended with bowel sounds. No peritoneal signs. No palpable organomegaly or masses. Extremities: Normal skin color and turgor. No cyanosis, rash, ulceration, clubbing, or edema. Radial and pedal pulses are 2/4 bilaterally. Neurological: No focal deficits. Strength and sensation are grossly intact. - Labs CBC & Chem 7: 08/22/16 07:02 08/22/16 07:02 Labs: Abnormal Lab Results - Last 24 Hours (Table) 08/18/16 08/21/16 08/22/16 Range/Units 21:14 18:25 00:52 RBC 2.76 L 2.62 L (3.80-5.40) m/uL Hgb 7.2 L 7.2 L (11.4-16.0) gm/dL Hct 24.6 L 22.2 L (34.0-46.0) % MCHC 29.2 L (31.0-37.0) g/dL RDW 18.7 H 18.7 H (11.5-15.5) % Chloride (98-107) mmol/L Calcium (8.4-10.2) mg/dL Crossmatch See Detail 08/22/16 08/22/16 Range/Units 07:02 07:02 RBC 2.80 L (3.80-5.40) m/uL Hgb 7.6 L (11.4-16.0) gm/dL Hct 24.6 L (34.0-46.0) % MCHC 30.8 L (31.0-37.0) g/dL RDW 18.7 H (11.5-15.5) % Chloride 108 H (98-107) mmol/L Calcium 7.8 L (8.4-10.2) mg/dL Crossmatch Assessment and Plan (1) Acute upper GI bleed Status: Acute (2) Gastric AVM Status: Acute (3) Acute blood loss anemia Status: Acute Plan: 1. Continue with Protonix 40 mg daily. Full liquid diet as tolerated may advance to soft diet. Blood transfusion per medicine; presently patient is requiring IV access. Possible PICC line today. Discharge per medicine. Assessment and plan a care discussed with Dr. Lott.
[2016-08-22] MEDS: ASCORBIC ACID 500 MG TAB PO SCH (11:40)
--- NOTE | 2016-08-22 13:00 | P.PN ---
Subjective Kate Medrano is an 81 year old female who presented with black tarry stools. She was found have evidence of GI bleed. She underwent EGD which did show AVMs that required cauterization. She is currently on IV Protonix. She required blood transfusions. Hemoglobin is now again down at 6.9. She's receiving another unit of blood with Lasix today. Xarelto that she takes for her DVT in the leg has been discontinued. Patient denies any further black stools. She reports no bowel movement since she's been in the hospital. No nausea or vomiting. No abdominal pain. Denies any chest pain or shortness of breath. Denies any burning with urination On 08/22/2016 patient has a poorly functioning IV in her left arm, she is scheduled for PICC line placement today, HGB 7.6 Objective - Vital Signs Vital signs: Vital Signs Temp 98.6 F 08/22/16 07:00 Pulse 85 08/22/16 08:00 Resp 18 08/22/16 08:00 BP 112/73 08/22/16 07:00 Pulse Ox 96 08/22/16 07:00 Intake & Output 08/21/16 08/22/16 08/22/16 18:59 06:59 18:59 Intake Total 310 480 Balance 310 480 Weight 71.668 kg 71.668 kg Intake: Oral 200 480 Blood Product 110 Rc As-1 Unit 110 [id number] Other: Voiding Method Bedside Commode Bedside Commode Bedside Commode # Voids 1 1 1 - Exam In general patient is alert and oriented 3 in no apparent distress HEENT head normocephalic and atraumatic Neck is supple no JVD no goiter no lymphadenopathy Chest exam reveals a few scattered crackles in both lung everett no wheezing Cardiac exam reveals regular heart sounds S1 and S2 no gallops no murmurs Abdomen is soft nontender no organomegaly Extremity exam reveals minimal edema no cyanosis or clubbing - - Labs CBC & Chem 7: 08/22/16 07:02 08/22/16 07:02 Labs: Abnormal Lab Results - Last 24 Hours (Table) 08/18/16 08/21/16 08/22/16 Range/Units 21:14 18:25 00:52 RBC 2.76 L 2.62 L (3.80-5.40) m/uL Hgb 7.2 L 7.2 L (11.4-16.0) gm/dL Hct 24.6 L 22.2 L (34.0-46.0) % MCHC 29.2 L (31.0-37.0) g/dL RDW 18.7 H 18.7 H (11.5-15.5) % Chloride (98-107) mmol/L Calcium (8.4-10.2) mg/dL Crossmatch See Detail 08/22/16 08/22/16 Range/Units 07:02 07:02 RBC 2.80 L (3.80-5.40) m/uL Hgb 7.6 L (11.4-16.0) gm/dL Hct 24.6 L (34.0-46.0) % MCHC 30.8 L (31.0-37.0) g/dL RDW 18.7 H (11.5-15.5) % Chloride 108 H (98-107) mmol/L Calcium 7.8 L (8.4-10.2) mg/dL Crossmatch Assessment and Plan Plan: 1. Acute on chronic blood loss anemia with hemoglobin of 5.9 on presentation. Secondary to GI bleeding from AVMs. Status post 4 units of PRBC transfusion since admission Patient is hemodynamically stable. Patient's hemoglobin is 7.6. She is receiving another unit of blood today with Lasix 20 mg afterwards. Patient has poorly functioning IV she is scheduled for PICC line placement today 2. 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 History of left lower extremity DVT on anticoagulation with Rivaroxaban and at home. I advised to discontinue anticoagulation permanently 4. Underlying COPD with no evidence of exacerbation 5. Essential hypertension: Blood pressure well-controlled 6. Hypernatremia: Sodium level 152 chloride level 113. Yesterday, patient received IV D5W sodium down to 141 today. Repeat labs in morning GI prophylaxis Protonix and DVT prophylaxis SCDs
[2016-08-22 13:18] LABS: Anisocytosis Slight; Basophils % (A) 0 %; CHCM 30.8; Eosinophils # (A) 0.2 k/uL (0-0.7); Eosinophils % (A) 2 %; HDW 4.96; HGB 7.9 gm/dL (11.4-16.0); Hypochromasia Marked; Luc # (Auto) 0.29; Luc % (Auto) 3; Lymphocytes # (A) 1.4 k/uL (1.0-4.8); Lymphocytes % (A) 12 %; MCH 27.8 pg (25.0-35.0); MCHC 32.7 g/dL (31.0-37.0); MCV 84.8 fL (80.0-100.0); Mean Platelet Volume 6.9; Monocytes # (A) 0.7 k/uL (0-1.0); Monocytes % (A) 7 %; Neutrophils # (A) 8.3 k/uL (1.3-7.7); Neutrophils % (A) 76 %; Poikilocytosis Marked; RBC 2.83 m/uL (3.80-5.40); RDW 18.8 % (11.5-15.5); WBC (Perox) 11.63
[2016-08-22 14:04] LABS: Glucose,Whole Blood 117 mg/dL (75-99)
--- NOTE | 2016-08-22 15:37 | IR ---
EXAMINATION TYPE: IR cvc insert >=5 years DATE OF EXAM: 08/22/2016 COMPARISON: NONE CLINICAL HISTORY: Gastrointestinal bleeding, blood transfusion Needs long-term intravenous access for therapy. PROCEDURE: After informed consent, the skin overlying the left brachial vein was localized with ultrasound and n oted to be compressible and patent. An ultrasound image was obtained and submitted on the patient's chart. The overlying skin was prepped and draped and Lidocaine was used for local anesthesia. A ski n andreas was made with a scalpel. Access was gained to the vein under ultrasound guidance with a 21 ga uge needle and a 0.018 inch wire was advanced. Access site was dilated with Peel-Away sheath and cat heter tailored to the appropriate length and advanced such that the distal tip is at the cavoatrial j unction. Spot image was obtained verifying placement. Catheter was fixed to the skin with suture an d a sterile dressing was placed following hemostasis. Catheter was aspirated and flushed with saline . Patient was discharged in stable condition without complication. Maximal barrier technique is util ized. Ultrasound image is documented on the chart. Ultrasound used with sterile technique. Fluoro time and fluoroscopic images submitted to document procedure: 417 intraoperative C-arm images, 0.8 minutes fluoroscopy time IMPRESSION: STATUS POST ULTRASOUND AND FLUOROSCOPIC GUIDED PICC LINE PLACEMENT, READY FOR USE. THIS PROCEDURE WAS PERFORMED BY THE UNDERSIGNED.
[2016-08-22] MEDS: DEXTROSE 5% IN WATER 1,000 ML IV SCH (15:42)
[2016-08-22] MEDS: ACETAMINOPHEN TAB 325 MG TAB PO PRN (20:05)
[2016-08-22] MEDS: ANASTROZOLE 1 MG TAB PO SCH (20:06)
[2016-08-22] MEDS: ISOSORBIDE MONONITRATE ER 30 MG TAB.ER.24H PO SCH (20:06)
[2016-08-22] MEDS: ASPIRIN 81 MG CHEW PO SCH (20:06)
[2016-08-22] MEDS: PRAVASTATIN SODIUM 40 MG TAB PO SCH (20:06)
[2016-08-22] MEDS: LATANOPROST 0.005% OPHTH DROPS 2.5 ML BTL BOTH EYES SCH (20:06)
[2016-08-22] MEDS: PARoxetine 10 MG TAB PO SCH (20:06)
[2016-08-23 06:13] LABS: Anisocytosis Slight; Basophils # (A) 0.1 k/uL (0-0.2); Basophils % (A) 1 %; CH 27.2; CHCM 31.2; Eosinophils # (A) 0.3 k/uL (0-0.7); Eosinophils % (A) 3 %; HCT 27.1 % (34.0-46.0); HDW 4.98; HGB 8.4 gm/dL (11.4-16.0); Hypochromasia Marked; Luc # (Auto) 0.17; Luc % (Auto) 2; Lymphocytes # (A) 1.1 k/uL (1.0-4.8); Lymphocytes % (A) 13 %; MCH 27.2 pg (25.0-35.0); MCHC 31.1 g/dL (31.0-37.0); MCV 87.4 fL (80.0-100.0); Mean Platelet Volume 7.1; Monocytes # (A) 0.6 k/uL (0-1.0); Monocytes % (A) 7 %; Neutrophils # (A) 6.5 k/uL (1.3-7.7); Neutrophils % (A) 74 %; Poikilocytosis Marked; RDW 17.9 % (11.5-15.5); WBC 8.8 k/uL (3.8-10.6)
[2016-08-23 06:25] LABS: ALT 21 U/L (9-52); AST 30 U/L (14-36); Alkaline Phosphatase 65 U/L (38-126); Anion Gap 4 mmol/L; Blood Urea Nitrogen 7 mg/dL (7-17); Calcium 7.5 mg/dL (8.4-10.2); Carbon Dioxide 30 mmol/L (22-30); Chloride 106 mmol/L (98-107); Glucose 101 mg/dL (74-99); Non-African American GFR(MDRD) >60 (>60 ml/min/1.73 sqM); Potassium 4.3 mmol/L (3.5-5.1); Sodium 140 mmol/L (137-145); Total Bilirubin 0.7 mg/dL (0.2-1.3); Total Protein 5.3 g/dL (6.3-8.2)
[2016-08-23] MEDS: IPRATROPIUM-ALBUTEROL 3 ML NEB INHALATION SCH ×2 (07:24→21:23)
--- NOTE | 2016-08-23 08:25 | P.PN ---
Subjective Principal diagnosis: GI bleed 81-year-old female admitted with black colored bowel movements. Status post EGD 2 days ago with gastric AVM cautery. Hemoglobin today 8.4 Denies GI bleeding. Denies abdominal pain. PICC line insertion yesterday for blood transfusion; received 1 unit. Objective - Vital Signs Vital signs: Vital Signs Temp 97.5 F L 08/23/16 07:00 Pulse 63 08/23/16 07:00 Resp 16 08/23/16 07:00 BP 149/65 08/23/16 07:00 Pulse Ox 100 08/23/16 07:00 Intake & Output 08/22/16 08/23/16 08/23/16 18:59 06:59 18:59 Intake Total 300 610 Balance 300 610 Weight 71.668 kg Intake: Oral 300 300 Blood Product 310 Rc As-1 Unit 310 [id number] Other: Voiding Method Bedside Commode # Voids 2 1 # Bowel Movements 1 - Exam General appearance: The patient is alert, oriented, in no acute distress. HET: Head is normocephalic and atraumatic. Pupils are equal and reactive. Oropharynx is clear without lesions. Neck: Supple without lymphadenopathy. Trachea midline. Heart: S1 S2. Regular rate and rhythm. Lungs: No crackles or wheezes are heard. Abdomen: Soft, nontender, nondistended with bowel sounds. No peritoneal signs. No palpable organomegaly or masses. Extremities: Normal skin color and turgor. No cyanosis, rash, ulceration, clubbing, or edema. Radial and pedal pulses are 2/4 bilaterally. Neurological: No focal deficits. Strength and sensation are grossly intact. - Labs CBC & Chem 7: 08/23/16 06:00 08/23/16 06:00 Labs: Abnormal Lab Results - Last 24 Hours (Table) 08/22/16 08/22/16 08/22/16 Range/Units 07:02 13:01 14:03 WBC 11.0 H (3.8-10.6) k/uL RBC 2.83 L (3.80-5.40) m/uL Hgb 7.9 L (11.4-16.0) gm/dL Hct 24.0 L (34.0-46.0) % RDW 18.8 H (11.5-15.5) % Neutrophils # 8.3 H (1.3-7.7) k/uL Chloride 108 H (98-107) mmol/L Glucose (74-99) mg/dL POC Glucose (mg/dL) 117 H (75-99) mg/dL Calcium 7.8 L (8.4-10.2) mg/dL Total Protein (6.3-8.2) g/dL Albumin (3.5-5.0) g/dL Crossmatch 08/22/16 08/23/16 08/23/16 Range/Units 18:34 06:00 06:00 WBC (3.8-10.6) k/uL RBC 3.10 L (3.80-5.40) m/uL Hgb 8.4 L (11.4-16.0) gm/dL Hct 27.1 L (34.0-46.0) % RDW 17.9 H (11.5-15.5) % Neutrophils # (1.3-7.7) k/uL Chloride (98-107) mmol/L Glucose 101 H (74-99) mg/dL POC Glucose (mg/dL) (75-99) mg/dL Calcium 7.5 L (8.4-10.2) mg/dL Total Protein 5.3 L (6.3-8.2) g/dL Albumin 3.0 L (3.5-5.0) g/dL Crossmatch See Detail Assessment and Plan (1) Acute upper GI bleed Status: Acute (2) Gastric AVM Status: Acute (3) Acute blood loss anemia Status: Acute Plan: 1. Light diet as tolerated. 2. Protonix 40 mg daily. 3. RTO 2 weeks. 4. Will follow as needed. discharge per medicine. Assessment and plan a care discussed with Dr. Lott
[2016-08-23] MEDS: ACETAMINOPHEN TAB 325 MG TAB PO PRN ×2 (09:24→22:58)
[2016-08-23] MEDS: LOSARTAN 50 MG TAB PO SCH ×2 (09:26→22:57)
[2016-08-23] MEDS: PANTOPRAZOLE 40 MG/10 ML VIAL IV SCH (09:26)
[2016-08-23] MEDS: ASCORBIC ACID 500 MG TAB PO SCH (12:00)
--- NOTE | 2016-08-23 16:35 | P.PN ---
Subjective Kate Medrano is an 81 year old female who presented with black tarry stools. She was found have evidence of GI bleed. She underwent EGD which did show AVMs that required cauterization. She is currently on IV Protonix. She required blood transfusions. Hemoglobin is now again down at 6.9. She's receiving another unit of blood with Lasix today. Xarelto that she takes for her DVT in the leg has been discontinued. Patient denies any further black stools. She reports no bowel movement since she's been in the hospital. No nausea or vomiting. No abdominal pain. Denies any chest pain or shortness of breath. Denies any burning with urination On 08/22/2016 patient has a poorly functioning IV in her left arm, she is scheduled for PICC line placement today, HGB 7.6 Objective - Vital Signs Vital signs: Vital Signs Temp 98.8 F 08/23/16 15:00 Pulse 73 08/23/16 15:00 Resp 16 08/23/16 15:00 BP 124/60 08/23/16 15:00 Pulse Ox 95 08/23/16 15:00 Intake & Output 08/22/16 08/23/16 08/23/16 18:59 06:59 18:59 Intake Total 184 293 2387 Balance 234 449 4729 Weight 71.668 kg 71.668 kg Intake: Intake, IV Titration 600 Amount Dextrose 5% in Water 1, 600 000 ml @ 50 mls/hr IV . Q20H [facility] Rx#:[id number] Oral 300 300 600 Blood Product 310 Rc As-1 Unit 310 [id number] Other: Voiding Method Bedside Commode Bedside Commode # Voids 2 1 2 # Bowel Movements 1 1 - Exam In general patient is alert and oriented 3 in no apparent distress HEENT head normocephalic and atraumatic Neck is supple no JVD no goiter no lymphadenopathy Chest exam reveals a few scattered crackles in both lung everett no wheezing Cardiac exam reveals regular heart sounds S1 and S2 no gallops no murmurs Abdomen is soft nontender no organomegaly Extremity exam reveals minimal edema no cyanosis or clubbing - - Labs CBC & Chem 7: 08/23/16 06:00 08/23/16 06:00 Labs: Abnormal Lab Results - Last 24 Hours (Table) 08/22/16 08/23/16 08/23/16 Range/Units 18:34 06:00 06:00 RBC 3.10 L (3.80-5.40) m/uL Hgb 8.4 L (11.4-16.0) gm/dL Hct 27.1 L (34.0-46.0) % RDW 17.9 H (11.5-15.5) % Glucose 101 H (74-99) mg/dL Calcium 7.5 L (8.4-10.2) mg/dL Total Protein 5.3 L (6.3-8.2) g/dL Albumin 3.0 L (3.5-5.0) g/dL Crossmatch See Detail Assessment and Plan Plan: 1. Acute on chronic blood loss anemia with hemoglobin of 5.9 on presentation. Secondary to GI bleeding from AVMs. Status post 4 units of PRBC transfusion since admission Patient is hemodynamically stable. Patient's hemoglobin is 8.4 after 1 unit of red blood cell transfusion. She is receiving another unit of blood today with Lasix 20 mg afterwards. Patient has poorly functioning IV she is scheduled for PICC line placement today 2. 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 History of left lower extremity DVT on anticoagulation with Rivaroxaban and at home. I advised to discontinue anticoagulation permanently 4. Underlying COPD with no evidence of exacerbation 5. Essential hypertension: Blood pressure well-controlled 6. Hypernatremia: Sodium level 152 chloride level 113. Yesterday, patient received IV D5W sodium down to 141 today. Repeat labs in morning GI prophylaxis Protonix and DVT prophylaxis SCDs At this time will continue to monitor CBC in a.m. if stable possible discharge to home tomorrow
[2016-08-23] MEDS: PARoxetine 10 MG TAB PO SCH (22:57)
[2016-08-23] MEDS: ISOSORBIDE MONONITRATE ER 30 MG TAB.ER.24H PO SCH (22:57)
[2016-08-23] MEDS: ANASTROZOLE 1 MG TAB PO SCH (22:58)
[2016-08-23] MEDS: LATANOPROST 0.005% OPHTH DROPS 2.5 ML BTL BOTH EYES SCH (22:58)
[2016-08-23] MEDS: PRAVASTATIN SODIUM 40 MG TAB PO SCH (22:58)
[2016-08-23] MEDS: ASPIRIN 81 MG CHEW PO SCH (22:58)
[2016-08-24 06:29] LABS: Anisocytosis Slight; Basophils # (A) 0.1 k/uL (0-0.2); Basophils % (A) 1 %; CH 26.8; CHCM 30.6; Eosinophils # (A) 0.5 k/uL (0-0.7); Eosinophils % (A) 5 %; HCT 25.9 % (34.0-46.0); HDW 4.84; HGB 8.1 gm/dL (11.4-16.0); Hypochromasia Marked; Luc # (Auto) 0.27; Luc % (Auto) 3; Lymphocytes # (A) 1.2 k/uL (1.0-4.8); Lymphocytes % (A) 13 %; MCH 27.7 pg (25.0-35.0); MCHC 31.5 g/dL (31.0-37.0); MCV 87.9 fL (80.0-100.0); Mean Platelet Volume 6.8; Monocytes # (A) 0.7 k/uL (0-1.0); Monocytes % (A) 8 %; Neutrophils # (A) 6.5 k/uL (1.3-7.7); Neutrophils % (A) 70 %; Poikilocytosis Marked; RBC 2.94 m/uL (3.80-5.40); RDW 17.6 % (11.5-15.5); WBC 9.2 k/uL (3.8-10.6); WBC (Perox) 9.96
[2016-08-24 06:45] LABS: Anion Gap 5 mmol/L; Blood Urea Nitrogen 10 mg/dL (7-17); Calcium 7.8 mg/dL (8.4-10.2); Carbon Dioxide 31 mmol/L (22-30); Chloride 105 mmol/L (98-107); Glucose 106 mg/dL (74-99); Non-African American GFR(MDRD) >60 (>60 ml/min/1.73 sqM); Potassium 4.3 mmol/L (3.5-5.1); Sodium 141 mmol/L (137-145)
[2016-08-24] MEDS: IPRATROPIUM-ALBUTEROL 3 ML NEB INHALATION SCH ×2 (07:09→18:55)
[2016-08-24] MEDS: DEXTROSE 5% IN WATER 1,000 ML IV SCH (07:12)
[2016-08-24] MEDS ORDERED: PANTOPRAZOLE 40 MG TABLET PO SCH (07:30)
[2016-08-24] MEDS: LOSARTAN 50 MG TAB PO SCH (08:05)
[2016-08-24 08:32] VITALS: RESP 16; TEMP 98.4
[2016-08-24] MEDS: ASCORBIC ACID 500 MG TAB PO SCH (11:41)
[2016-08-24 12:36] VITALS: BP 147/67
--- NOTE | 2016-08-24 13:49 | P.DS ---
Providers Date of admission: 08/18/16 21:49 Expected date of discharge: 08/24/16 Attending physician: Bg Fuller Consults: Dr. Gianni Lott Primary care physician: Astrid Cade Hospital Course: Discharge diagnosis 1. Acute on chronic blood loss anemia with hemoglobin of 5.9 on presentation. Secondary to GI bleeding from AVMs. Status post 4 units of PRBC transfusion since admission Patient is hemodynamically stable. Patient's hemoglobin is 8.4 after 1 unit of red blood cell transfusion. She is receiving another unit of blood today with Lasix 20 mg afterwards. Patient has poorly functioning IV she is scheduled for PICC line placement today 2. 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 History of left lower extremity DVT on anticoagulation with Rivaroxaban and at home. I advised to discontinue anticoagulation permanently 4. Underlying COPD with no evidence of exacerbation 5. Essential hypertension: Blood pressure well-controlled 6. Hypernatremia: Resolved after changing IV fluids to D5W Hospital course Kate Medrano is an 81 year old female who presented with black tarry stools. She was found have evidence of GI bleed. She underwent EGD which did show AVMs that required cauterization. She is currently on IV Protonix. She required blood transfusions. Hemoglobin is now again down at 6.9. She's receiving another unit of blood with Lasix today. Xarelto that she takes for her DVT in the leg has been discontinued. Patient did require a PICC line during this admission because of no IV access to get her blood transfusion. She received a total 4 transfusions. Hemoglobin is at 8.1 at discharge. She'll go home with Protonix and ferrous sulfate 325 mg twice a day. Recommend checking a CBC in 1 week. She'll follow-up with her PCP in 1 week as well as following up with GI service in 2 weeks. Patient is medically stable for discharge. Please refer to chart for any further details Patient Condition at Discharge: Stable Plan - Discharge Summary New Discharge Prescriptions: New Pantoprazole [Protonix] 40 mg PO AC-BRKFST #30 tab Continue Pravastatin Sodium [Pravachol] 40 mg PO HS Isosorbide Mononitrate ER [Imdur] 30 mg PO HS Ipratropium/Albuterol Sulfate [Combivent Respimat Inhaler] 1 puff INHALATION BID Aclidinium [place] [Tudorza Pressair] 1 puff INHALATION BID PARoxetine HCL [Paxil] 10 mg PO HS Irbesartan [Avapro] 75 mg PO DAILY Anastrozole [Arimidex] 1 mg PO HS Aspirin [Adult Low Dose Aspirin EC] 81 mg PO HS Ascorbic Acid [Vitamin C with Stacy Hips] 500 mg PO DAILY Latanoprost [Xalatan 0.005%] 1 drop BOTH EYES HS Acetaminophen [Tylenol] 1,000 mg PO BID PRN PRN Reason: Pain Discontinued Rivaroxaban [Xarelto] 20 mg PO HS Discharge Medication List Ipratropium/Albuterol Sulfate [Combivent Respimat Inhaler] 1 puff INHALATION BID 08/04/13 [History] Isosorbide Mononitrate ER [Imdur] 30 mg PO HS 08/04/13 [History] Pravastatin Sodium [Pravachol] 40 mg PO HS 08/04/13 [History] Aclidinium [place] [Tudorza Pressair] 1 puff INHALATION BID 04/17/14 [History] Anastrozole [Arimidex] 1 mg PO HS 02/22/16 [History] Ascorbic Acid [Vitamin C with Stacy Hips] 500 mg PO DAILY 02/22/16 [History] Aspirin [Adult Low Dose Aspirin EC] 81 mg PO HS 02/22/16 [History] Irbesartan [Avapro] 75 mg PO DAILY 02/22/16 [History] PARoxetine HCL [Paxil] 10 mg PO HS 02/22/16 [History] Acetaminophen [Tylenol] 1,000 mg PO BID PRN 08/18/16 [History] Latanoprost [Xalatan 0.005%] 1 drop BOTH EYES HS 08/18/16 [History] Pantoprazole [Protonix] 40 mg PO AC-BRKFST #30 tab 08/24/16 [Rx] Follow up Appointment(s)/Referral(s): Etta Lott MD [STAFF PHYSICIAN] - 2 Weeks Astrid Cade DO [Primary Care Provider] - 1 Week Activity/Diet/Wound Care/Special Instructions: Diet: cardiac Activity: as tolerated check CBC in 1 week Discharge Disposition: HOME SELF-CARE
[2016-08-24 18:32] VITALS: PULSE 88
== END 2016-08-24 19:20 | disposition home or self-care (01) | DRG 378 ==
LOC: EC 18:32 → 5MS5E 21:49
PROVIDERS: ADMIT Internal Medicine; ATTEND Internal Medicine
PROC: 30233N1 Transfusion of Nonautologous Red Blood Cells into Peripheral Vein, Percutaneous Approach (ICD-10-PCS; 2016-08-18)
PROC: 3E0G8GC Introduction of Other Therapeutic Substance into Upper GI, Via Natural or Artificial Opening Endoscopic (ICD-10-PCS; 2016-08-20)
PROC: 0W3P8ZZ Control Bleeding in Gastrointestinal Tract, Via Natural or Artificial Opening Endoscopic (ICD-10-PCS; principal; 2016-08-20 08:00)
PROC: 02HV33Z Insertion of Infusion Device into Superior Vena Cava, Percutaneous Approach (ICD-10-PCS; 2016-08-22 13:45)
DX: K31.811 Angiodysplasia of stomach and duodenum with bleeding (principal); D62 Acute posthemorrhagic anemia; E87.0 Hyperosmolality and hypernatremia; I50.9 Heart failure, unspecified; I11.0 Hypertensive heart disease with heart failure; I69.354 Hemiplegia and hemiparesis following cerebral infarction affecting left non-dominant side; K44.9 Diaphragmatic hernia without obstruction or gangrene; M19.90 Unspecified osteoarthritis, unspecified site; I25.10 Atherosclerotic heart disease of native coronary artery without angina pectoris; F32.9 Major depressive disorder, single episode, unspecified; F41.9 Anxiety disorder, unspecified; E78.5 Hyperlipidemia, unspecified; E78.00 Pure hypercholesterolemia, unspecified; J44.9 Chronic obstructive pulmonary disease, unspecified; Z82.49 Family history of ischemic heart disease and other diseases of the circulatory system; Z79.82 Long term (current) use of aspirin; Z79.899 Other long term (current) drug therapy; Z87.891 Personal history of nicotine dependence; Z85.3 Personal history of malignant neoplasm of breast; Z79.01 Long term (current) use of anticoagulants; Z86.718 Personal history of other venous thrombosis and embolism; Z82.3 Family history of stroke; Z80.9 Family history of malignant neoplasm, unspecified; Z90.49 Acquired absence of other specified parts of digestive tract; Z86.79 Personal history of other diseases of the circulatory system; Z87.01 Personal history of pneumonia (recurrent); Z90.11 Acquired absence of right breast and nipple
CPT/HCPCS: 36415; 36569; 43255; 71010; 76937; 77001; 80048; 80053; 82272; 83605; 84484; 85025; 85027; 85610; 85730; 86850; 86900; 86901; 86920; 93005; 94640; 94760; 96374; 99285

== ENCOUNTER 2016-09-04 16:28 | Inpatient (IN) | payer MEDICARE, BC ==
--- NOTE | 2016-09-04 16:33 | US ---
EXAMINATION TYPE: US venous doppler duplex LE LT DATE OF EXAM: 09/04/2016 4:12 PM COMPARISON: US 2-15 CLINICAL HISTORY: R22.42 Swelling L leg, Z86.718 Personal Hx DVT. pt had left leg dvt 2 yrs ago and h as been on blood thinners since, but pt states had to go off one week ago due to ulcers/gi bleed. Pt states left calf/ankle pain and swelling SIDE PERFORMED: left TECHNIQUE: The lower extremity deep venous system is examined utilizing real time linear array sonog caty with graded compression, doppler sonography and color-flow sonography. VESSELS IMAGED: External Iliac Vein (EIV) Common Femoral Vein Deep Femoral Vein Femoral Vein Popliteal Vein Proximal Calf Veins Left Leg: occlusive thrombus from the left groin and extending into the prox calf vn Results called to Renee BRADEN in the office, due to pt's complicated history the patient is to be evaluat ed through the ER. IMPRESSION: Persistent long segment thrombus in the left lower extremity with expansion of venous lum en suggests recurrent long segment acute thrombus.
--- NOTE | 2016-09-04 18:48 | ED ---
General Adult HPI - General Source: patient, RN notes reviewed Mode of arrival: wheelchair Limitations: no limitations <Benita Faith - Last Filed: 09/04/16 19:42> <Emilio Noonan - Last Filed: 09/04/16 20:17> - General Chief complaint: Extremity Injury, Lower Stated complaint: Positive DVT Time Seen by Provider: 09/04/16 18:37 - History of Present Illness Initial comments: Patient is an 81-year-old female presents to the emergency room for evaluation of left lower extremity DVT. Patient states she was here about 2 weeks ago for anemia due to GI bleed. Patient states she had a follow-up appointment with her primary care provider a few days ago and mentioned that she began having left leg swelling. Patient states that she had an ultrasound of her left leg today that was positive for an acute clot. Patient states she does have a history of DVT in her left leg, once in 2004 and once 3 years ago. Patient states she has been on Xarelto ever since. Patient states after admission last time she was here they discontinued any anticoagulants. Patient denies any significant calf pain. Patient denies any numbness or tingling in her toes. Patient states she is still feeling weak from last hospital visit here. Patient denies chest pain, shortness of breath, headache, dizziness, nausea, vomiting. Patient states her stools are still dark, but she also takes an iron supplement. (Benita Faith) - Related Data Home Medications Medication Instructions Recorded Confirmed Ipratropium/Albuterol Sulfate 1 puff INHALATION RT-BID 08/04/13 09/04/16 [Combivent Respimat Inhaler] Isosorbide Mononitrate ER [Imdur] 30 mg PO HS 08/04/13 09/04/16 Pravastatin Sodium [Pravachol] 40 mg PO HS 08/04/13 09/04/16 Aclidinium [place] [Tudorza 1 puff INHALATION RT-BID 04/17/14 09/04/16 Pressair] Anastrozole [Arimidex] 1 mg PO HS 02/22/16 09/04/16 Ascorbic Acid [Vitamin C with Stacy 500 mg PO DAILY 02/22/16 09/04/16 Hips] Aspirin [Adult Low Dose Aspirin EC] 81 mg PO HS 02/22/16 09/04/16 PARoxetine HCL [Paxil] 10 mg PO HS 02/22/16 09/04/16 Acetaminophen [Tylenol] 1,000 mg PO BID PRN 08/18/16 09/04/16 Latanoprost [Xalatan 0.005%] 1 drop LEFT EYE HS 08/18/16 09/04/16 Denosumab [Prolia] 60 mg SQ Q180D 09/04/16 09/04/16 Irbesartan [Avapro] 75 mg PO DAILY 09/04/16 09/04/16 Previous Rx's Medication Instructions Recorded Ferrous Sulfate [Iron (65 MG 325 mg PO BID #60 tab 08/24/16 Elemental)] Pantoprazole [Protonix] 40 mg PO AC-BRKFST #30 tab 08/24/16 Allergies Allergy/AdvReac Type Severity Reaction Status Date / Time No Known Allergies Allergy Verified 09/04/16 16:42 Review of Systems ROS Other: All systems not noted in ROS Statement are negative. <Benita Faith - Last Filed: 09/04/16 19:42> ROS Other: All systems not noted in ROS Statement are negative. <Emilio Noonan - Last Filed: 09/04/16 20:17> ROS Statement: Those systems with pertinent positive or pertinent negative responses have been documented in the HPI. 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,, emphysema; hypoglycemia, DVT DURING BACK SURGERY-" HIT AN ARTERY " and other from "low sodium", hx breast cancer, History of Any Multi-Drug Resistant Organisms: None Reported Past Surgical History: Back Surgery, Breast Surgery, Cholecystectomy, Heart Catheterization Additional Past Surgical History / Comment(s): L SUBCLAVIAN ARTERY BYPASS, Rt CAROTID ENDARTECTOMY, rt breast lumpectomy Past Anesthesia/Blood Transfusion Reactions: No Reported Reaction Additional Past Anesthesia/Blood Transfusion Reaction / Comment(s): PT RECIEVED BLOOD TRANSFUSION Past Psychological History: Anxiety Smoking Status: Former smoker Past Alcohol Use History: None Reported Past Drug Use History: None Reported - Past Family History Brother(s) Family Medical History: Cancer Sister(s) Family Medical History: Cancer Mother Family Medical History: Coronary Artery Disease (CAD) Additional Family Medical History / Comment(s): enlarged heart Father Family Medical History: Coronary Artery Disease (CAD), CVA/TIA <Benita Faith - Last Filed: 09/04/16 19:42> General Exam Limitations: no limitations General appearance: alert, in no apparent distress Head exam: Present: atraumatic, normocephalic, normal inspection Eye exam: Present: normal appearance ENT exam: Present: normal exam Neck exam: Present: normal inspection Respiratory exam: Present: normal lung sounds bilaterally. Absent: respiratory distress Cardiovascular Exam: Present: regular rate, normal rhythm, normal heart sounds Rectal exam: Present: normal inspection, normal rectal tone Left Ankle exam: Present: swelling. Absent: tenderness Foot/Toe exam: Present: swelling. Absent: tenderness Neurovascular tendon exam: Present: no vascular compromise. Absent: pulse deficit (2+ dorsal pedal and posterior tibial pulses), abnormal cap refill ( Capillary refill less than 2 seconds) Back exam: Present: normal inspection Neurological exam: Present: alert, oriented X3, CN II-XII intact, normal gait Psychiatric exam: Present: normal affect, normal mood Skin exam: Present: warm, dry, intact, normal color. Absent: rash <Benita Faith - Last Filed: 09/04/16 19:42> <Emilio Noonan - Last Filed: 09/04/16 20:17> - General Exam Comments Initial Comments: Sitting in exam room, no acute distress. (Benita Faith) Medical Decision Making - Radiology Data Radiology results: report reviewed, image reviewed <Benita Faith - Last Filed: 09/04/16 19:42> - Lab Data Result diagrams: 09/04/16 19:39 09/04/16 19:39 <Emilio Noonan - Last Filed: 09/04/16 20:17> - Medical Decision Making Patient is an 81-year-old female presents to the emergency room for evaluation of left leg DVT. Patient has recurrent DVTs. Patient was recently admitted here for anemia from GI bleed. Anticoagulants were discontinued at that time. Stool occult is negative today. Labs pending. Case discussed and passed onto Dr. Noonan at 7:45 PM. (Benita Faith) Asians history includes DVTs first one in 1999 511 again 3 years later. Since 2007 she reportedly has been on Xareltoblood thinners. These were stopped several weeks ago when she was here because of a GI bleed and anemia where hemoglobin dropped to 5.8. At that time was difficulty getting IV she had a line insertedPICC line. sheet 4 units of blood was removed after discharge. Patient presents again today with swelling to her left leg her family physician ordered a DVT study which is positive for fresh clot in the leg. Otherwise denying chest pain or shortness of breath. The patient's stool was guaiac negative. Her hemoglobin hematocrit still pending. I discussed the case with Dr. Fuller her attending or to care of her in hospital while here last. The circumstances he recommends subcu heparin 5000 units every 8 hours. With further evaluation in the morning depending upon labs. They will determine further therapy concerning the fresh T. Dr. Noonan (Emilio Noonan) - Lab Data Lab Results 09/04/16 09/04/16 09/04/16 Range/Units 19:00 19:39 19:39 WBC 10.3 (3.8-10.6) k/uL RBC 4.01 (3.80-5.40) m/uL Hgb 11.0 L (11.4-16.0) gm/dL Hct 35.1 (34.0-46.0) % MCV 87.4 (80.0-100.0) fL MCH 27.3 (25.0-35.0) pg MCHC 31.3 (31.0-37.0) g/dL RDW 19.6 H (11.5-15.5) % Plt Count 352 (150-450) k/uL Neutrophils % 72 % Lymphocytes % 13 % Monocytes % 8 % Eosinophils % 3 % Basophils % 0 % Neutrophils # 7.4 (1.3-7.7) k/uL Lymphocytes # 1.3 (1.0-4.8) k/uL Monocytes # 0.8 (0-1.0) k/uL Eosinophils # 0.3 (0-0.7) k/uL Basophils # 0.0 (0-0.2) k/uL Hypochromasia Marked Poikilocytosis Marked Anisocytosis Slight Sodium 139 (137-145) mmol/L Potassium 5.2 H (3.5-5.1) mmol/L Chloride 104 (98-107) mmol/L Carbon Dioxide 24 (22-30) mmol/L Anion Gap 11 mmol/L BUN 16 (7-17) mg/dL Creatinine 0.79 (0.52-1.04) mg/dL Est GFR (MDRD) Af Amer >60 (>60 ml/min/1.73 sqM) Est GFR (MDRD) Non-Af >60 (>60 ml/min/1.73 sqM) Glucose 75 (74-99) mg/dL Calcium 9.2 (8.4-10.2) mg/dL Total Bilirubin 0.8 (0.2-1.3) mg/dL AST 56 H (14-36) U/L ALT 7 L (9-52) U/L Alkaline Phosphatase 99 (38-126) U/L Total Protein 6.7 (6.3-8.2) g/dL Albumin 3.9 (3.5-5.0) g/dL Stool Occult Blood Negative (Negative) Disposition <Benita Faith - Last Filed: 09/04/16 19:42> <Emilio Noonan - Last Filed: 09/04/16 20:17> Clinical Impression: Left leg DVT Disposition: ADMITTED IP TO THIS [facility] Condition: Fair Referrals: Astrid Cade DO [Primary Care Provider] - 1-2 days
[2016-09-04 19:59] LABS: Anisocytosis Slight; Basophils % (A) 0 %; CH 26.7; CHCM 30.6; Eosinophils # (A) 0.3 k/uL (0-0.7); Eosinophils % (A) 3 %; HCT 35.1 % (34.0-46.0); HDW 4.86; Hypochromasia Marked; Luc % (Auto) 3; Lymphocytes # (A) 1.3 k/uL (1.0-4.8); Lymphocytes % (A) 13 %; MCH 27.3 pg (25.0-35.0); MCHC 31.3 g/dL (31.0-37.0); MCV 87.4 fL (80.0-100.0); Mean Platelet Volume 7.7; Monocytes # (A) 0.8 k/uL (0-1.0); Monocytes % (A) 8 %; Neutrophils # (A) 7.4 k/uL (1.3-7.7); Neutrophils % (A) 72 %; Poikilocytosis Marked; RBC 4.01 m/uL (3.80-5.40); RDW 19.6 % (11.5-15.5); WBC 10.3 k/uL (3.8-10.6); WBC (Perox) 10.67
[2016-09-04 20:08] LABS: ALT 7 U/L (9-52); AST 56 U/L (14-36); Alkaline Phosphatase 99 U/L (38-126); Anion Gap 11 mmol/L; Blood Urea Nitrogen 16 mg/dL (7-17); Calcium 9.2 mg/dL (8.4-10.2); Carbon Dioxide 24 mmol/L (22-30); Chloride 104 mmol/L (98-107); Glucose 75 mg/dL (74-99); Non-African American GFR(MDRD) >60 (>60 ml/min/1.73 sqM); Potassium 5.2 mmol/L (3.5-5.1); Sodium 139 mmol/L (137-145); Total Bilirubin 0.8 mg/dL (0.2-1.3); Total Protein 6.7 g/dL (6.3-8.2)
[2016-09-04] MEDS ORDERED: HEPARIN SODIUM,PORCINE 5,000 UNIT/ML 1 ML VIAL SQ STA (20:17)
[2016-09-04] MEDS ORDERED: ACETAMINOPHEN TAB 325 MG TAB PO PRN (20:18)
[2016-09-04] MEDS ORDERED: NALOXONE 0.4 MG/ML 1 ML VIAL IV PRN (20:18)
[2016-09-04] MEDS ORDERED: DENOSUMAB 60 MG/ML 1 ML SYRINGE SQ SCH (20:30)
[2016-09-04] MEDS: HEPARIN SODIUM,PORCINE 5,000 UNIT/ML 1 ML VIAL SQ SCH (20:48)
[2016-09-04] MEDS: PARoxetine 10 MG TAB PO SCH (22:51)
[2016-09-04] MEDS: ISOSORBIDE MONONITRATE ER 30 MG TAB.ER.24H PO SCH (22:52)
[2016-09-04] MEDS: FERROUS SULFATE 325 MG TAB PO SCH (22:52)
[2016-09-04] MEDS: PRAVASTATIN SODIUM 40 MG TAB PO SCH (22:52)
[2016-09-04] MEDS: FAMOTIDINE 20 MG TAB PO SCH (22:52)
[2016-09-04] MEDS: ANASTROZOLE 1 MG TAB PO SCH (22:52)
[2016-09-04] MEDS: LATANOPROST 0.005% OPHTH DROPS 2.5 ML BTL LEFT EYE SCH (23:56)
[2016-09-05] MEDS: HEPARIN SODIUM,PORCINE 5,000 UNIT/ML 1 ML VIAL SQ SCH ×2 (03:30→12:00)
[2016-09-05] MEDS: IPRATROPIUM-ALBUTEROL 3 ML NEB INHALATION SCH ×2 (07:14→21:45)
[2016-09-05] MEDS ORDERED: TIOTROPIUM 18 MCG/PUFF INHALER INHALATION SCH (08:00)
[2016-09-05] MEDS: FAMOTIDINE 20 MG TAB PO SCH ×2 (08:28→20:34)
[2016-09-05] MEDS: LOSARTAN 25 MG TAB PO SCH (08:28)
[2016-09-05] MEDS: ASCORBIC ACID 500 MG TAB PO SCH (08:28)
[2016-09-05] MEDS: FERROUS SULFATE 325 MG TAB PO SCH ×2 (08:28→20:34)
[2016-09-05 08:29] LABS: Anisocytosis Slight; Basophils # (A) 0.1 k/uL (0-0.2); Basophils % (A) 1 %; CH 26.5; CHCM 30.1; Eosinophils # (A) 0.3 k/uL (0-0.7); Eosinophils % (A) 3 %; HCT 34.2 % (34.0-46.0); HDW 4.73; HGB 10.7 gm/dL (11.4-16.0); Hypochromasia Marked; Luc # (Auto) 0.24; Luc % (Auto) 3; Lymphocytes # (A) 1.6 k/uL (1.0-4.8); Lymphocytes % (A) 18 %; MCH 27.6 pg (25.0-35.0); MCHC 31.1 g/dL (31.0-37.0); MCV 88.5 fL (80.0-100.0); Mean Platelet Volume 6.9; Monocytes # (A) 0.7 k/uL (0-1.0); Monocytes % (A) 8 %; Neutrophils # (A) 5.9 k/uL (1.3-7.7); Neutrophils % (A) 67 %; Poikilocytosis Marked; RBC 3.86 m/uL (3.80-5.40); RDW 19.6 % (11.5-15.5); WBC 8.8 k/uL (3.8-10.6)
[2016-09-05] MEDS ORDERED: HEPARIN SODIUM,PORCINE 5,000 UNIT/ML 1 ML VIAL IV PRN (13:20)
--- NOTE | 2016-09-05 13:34 | IR ---
EXAMINATION TYPE: IR cvc insert >=5 years DATE OF EXAM: 09/05/2016 COMPARISON: NONE CLINICAL HISTORY: Anemia Needs long-term intravenous access for therapy. PROCEDURE: After informed consent, the skin overlying the left brachial vein was localized with ultrasound and n oted to be compressible and patent. An ultrasound image was obtained and submitted on the patient's chart. The overlying skin was prepped and draped and Lidocaine was used for local anesthesia. A ski n andreas was made with a scalpel. Access was gained to the vein under ultrasound guidance with a 21 ga uge needle and a 0.018 inch wire was advanced. Access site was dilated with Peel-Away sheath and cat heter tailored to the appropriate length and advanced such that the distal tip is at the cavoatrial j unction. Spot image was obtained verifying placement. Catheter was fixed to the skin with suture an d a sterile dressing was placed following hemostasis. Catheter was aspirated and flushed with saline . Patient was discharged in stable condition without complication. Maximal barrier technique is util ized. Ultrasound image is documented on the chart. Ultrasound used with sterile technique. Fluoro time and fluoroscopic images submitted to document procedure: 208 intraoperative C-arm images, 1.1 minutes fluoroscopy time IMPRESSION: STATUS POST ULTRASOUND AND FLUOROSCOPIC GUIDED PICC LINE PLACEMENT, READY FOR USE. THIS PROCEDURE WAS PERFORMED BY THE UNDERSIGNED.
[2016-09-05 14:00] LABS: Anisocytosis Slight; Basophils # (A) 0.1 k/uL (0-0.2); Basophils % (A) 1 %; CH 26.5; CHCM 29.6; Eosinophils # (A) 0.2 k/uL (0-0.7); Eosinophils % (A) 3 %; HCT 33.1 % (34.0-46.0); HDW 4.58; HGB 10.2 gm/dL (11.4-16.0); Hypochromasia Marked; Luc # (Auto) 0.19; Luc % (Auto) 3; Lymphocytes # (A) 0.9 k/uL (1.0-4.8); Lymphocytes % (A) 12 %; MCH 27.7 pg (25.0-35.0); MCHC 30.7 g/dL (31.0-37.0); MCV 90.1 fL (80.0-100.0); Mean Platelet Volume 6.6; Monocytes # (A) 0.6 k/uL (0-1.0); Monocytes % (A) 8 %; Neutrophils # (A) 5.6 k/uL (1.3-7.7); Neutrophils % (A) 74 %; Poikilocytosis Moderate; RBC 3.68 m/uL (3.80-5.40); RDW 19.7 % (11.5-15.5); WBC 7.5 k/uL (3.8-10.6)
[2016-09-05 14:03] LABS: INR 1.1 (<1.1); Partial Thromboplastin Time 22.8 sec (22.0-30.0); Prothrombin Time 11.2 sec (9.0-12.0)
[2016-09-05] MEDS: HEPARIN SODIUM,PORCINE/D5W PMX 25,000 UNIT in DEXTROSE/WATER 1 500ML.BAG IV SCH (14:19)
--- NOTE | 2016-09-05 17:37 | P.HPIM ---
History of Present Illness H&P Date: 09/05/16 Chief Complaint: left leg swelling Patient is an 81-year-old female who presented to [facility] was left lower extremity DVT , left lower extremity Doppler was positive for DVT. Patient has known history of previous left lower extremity DVT in 2004 and in 2013 she has been maintained on Xarelto however she had an admission was gastrointestinal bleeding 2 weeks ago and Xarelto was discontinued at that time he returns to the hospital with left leg swelling Doppler was positive for DVT she was readmitted to medical floor. Patient has known history of extreme difficulty obtaining peripheral IV lines consultation for PICC line was initiated. Patient was started on IV heparin drip serial checks of CBC every 6 hours was initiated hematology consult and gastroenterology consult were initiated. 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,, emphysema; hypoglycemia, DVT DURING BACK SURGERY-" HIT AN ARTERY " and other from "low sodium", hx breast cancer, History of Any Multi-Drug Resistant Organisms: None Reported Past Surgical History: Back Surgery, Breast Surgery, Cholecystectomy, Heart Catheterization Additional Past Surgical History / Comment(s): L SUBCLAVIAN ARTERY BYPASS, Rt CAROTID ENDARTECTOMY, rt breast lumpectomy Past Anesthesia/Blood Transfusion Reactions: No Reported Reaction Additional Past Anesthesia/Blood Transfusion Reaction / Comment(s): PT RECIEVED BLOOD TRANSFUSION Past Psychological History: Anxiety Additional Psychological History / Comment(s): . Smoking Status: Former smoker Past Alcohol Use History: None Reported Past Drug Use History: None Reported - Past Family History Brother(s) Family Medical History: Cancer Sister(s) Family Medical History: Cancer Mother Family Medical History: Coronary Artery Disease (CAD) Additional Family Medical History / Comment(s): enlarged heart Father Family Medical History: Coronary Artery Disease (CAD), CVA/TIA Medications and Allergies Home Medications Medication Instructions Recorded Confirmed Type Ipratropium/Albuterol Sulfate 1 puff INHALATION RT-BID 08/04/13 09/04/16 History [Combivent Respimat Inhaler] Isosorbide Mononitrate ER [Imdur] 30 mg PO HS 08/04/13 09/04/16 History Pravastatin Sodium [Pravachol] 40 mg PO HS 08/04/13 09/04/16 History Aclidinium [place] [Tudorza 1 puff INHALATION RT-BID 04/17/14 09/04/16 History Pressair] Anastrozole [Arimidex] 1 mg PO HS 02/22/16 09/04/16 History Ascorbic Acid [Vitamin C with Stacy 500 mg PO DAILY 02/22/16 09/04/16 History Hips] Aspirin [Adult Low Dose Aspirin EC] 81 mg PO HS 02/22/16 09/04/16 History PARoxetine HCL [Paxil] 10 mg PO HS 02/22/16 09/04/16 History Acetaminophen [Tylenol] 1,000 mg PO BID PRN 08/18/16 09/04/16 History Latanoprost [Xalatan 0.005%] 1 drop LEFT EYE HS 08/18/16 09/04/16 History Denosumab [Prolia] 60 mg SQ Q180D 09/04/16 09/04/16 History Irbesartan [Avapro] 75 mg PO DAILY 09/04/16 09/04/16 History Allergies Allergy/AdvReac Type Severity Reaction Status Date / Time No Known Allergies Allergy Verified 09/04/16 16:42 Physical Exam Vitals: Vital Signs Temp Pulse Pulse Resp BP BP Pulse Ox 09/05/16 16:00 16 09/05/16 15:00 98.8 F 78 16 120/66 94 L 09/05/16 08:00 16 09/05/16 07:29 76 09/05/16 07:17 74 09/05/16 07:00 98.7 F 79 16 121/83 93 L 09/04/16 23:00 97.0 F L 69 16 144/73 91 L 09/04/16 21:55 98 F 66 16 128/70 98 Intake and Output 09/05/16 09/05/16 09/05/16 06:59 14:59 22:59 Intake Total 358 Balance 358 Intake: Oral 358 Other: Voiding Method Bedside Commode Bedside Commode Bedside Commode # Voids 1 2 # Bowel Movements 1 Weight 70 kg HEENT head normocephalic and atraumatic Neck is supple no JVD no goiter no lymphadenopathy Chest is clear to auscultation no crackles no wheezing Cardiac exam reveals regular heart sounds S1 and S2 no gallops no murmurs Abdomen is soft nontender no organomegaly with normal bowel sounds Extremity exam reveals 2+ edema no cyanosis or clubbing Results CBC & Chem 7: 09/05/16 13:45 09/04/16 19:39 Labs: Abnormal Lab Results - Last 24 Hours (Table) 09/04/16 09/04/16 09/05/16 Range/Units 19:39 19:39 07:53 RBC (3.80-5.40) m/uL Hgb 11.0 L 10.7 L (11.4-16.0) gm/dL Hct (34.0-46.0) % MCHC (31.0-37.0) g/dL RDW 19.6 H 19.6 H (11.5-15.5) % Lymphocytes # (1.0-4.8) k/uL Potassium 5.2 H (3.5-5.1) mmol/L AST 56 H (14-36) U/L ALT 7 L (9-52) U/L 09/05/16 Range/Units 13:45 RBC 3.68 L (3.80-5.40) m/uL Hgb 10.2 L (11.4-16.0) gm/dL Hct 33.1 L (34.0-46.0) % MCHC 30.7 L (31.0-37.0) g/dL RDW 19.7 H (11.5-15.5) % Lymphocytes # 0.9 L (1.0-4.8) k/uL Potassium (3.5-5.1) mmol/L AST (14-36) U/L ALT (9-52) U/L Thrombosis Risk Factor Assmnt - Choose All That Apply Any of the Below Risk Factors Present?: Yes Each Factor Represents 1 point: Heart failure (<1month), Obesity (BMI >25), Swollen legs (current) Other Risk Factors: Yes Each Risk Factor Represents 3 Points: Age 75 years or older, History of DVT/PE Thrombosis Risk Factor Assessment Total Risk Factor Score: 9 Thrombosis Risk Factor Assessment Level: High Risk Assessment and Plan Plan: #1 left extensive lower extremity DVT patient was started on IV heparin hematology consultation was requested #2 recent gastrointestinal bleeding will check CBC every 6 hours GI consultation was requested #3 underlying history of COPD stable at this time #4 underlying history of hypertension well-controlled on current medications #5 underlying history of hyperlipidemia maintained on Pravachol 40 mg daily continue #6 underlying history of coronary artery disease maintained on Imdur continue #7 underlying history of depression maintained on Paxil Medication and labs were reviewed add Protonix 40 mg by mouth twice a day Will follow closely, continue with IV heparin at this time awaiting hematology recommendation
[2016-09-05] MEDS: PANTOPRAZOLE 40 MG TABLET PO SCH (18:54)
[2016-09-05] MEDS: PRAVASTATIN SODIUM 40 MG TAB PO SCH (20:34)
[2016-09-05] MEDS: PARoxetine 10 MG TAB PO SCH (20:34)
[2016-09-05] MEDS: ANASTROZOLE 1 MG TAB PO SCH (20:34)
[2016-09-05] MEDS: ISOSORBIDE MONONITRATE ER 30 MG TAB.ER.24H PO SCH (20:34)
[2016-09-05] MEDS: LATANOPROST 0.005% OPHTH DROPS 2.5 ML BTL LEFT EYE SCH (20:34)
[2016-09-06 06:39] LABS: Anisocytosis Slight; Basophils # (A) 0.1 k/uL (0-0.2); Basophils % (A) 1 %; CH 26.6; CHCM 30.1; Eosinophils # (A) 0.4 k/uL (0-0.7); Eosinophils % (A) 5 %; HCT 31.1 % (34.0-46.0); HDW 4.51; HGB 9.6 gm/dL (11.4-16.0); Hypochromasia Marked; Luc # (Auto) 0.23; Luc % (Auto) 3; Lymphocytes # (A) 1.3 k/uL (1.0-4.8); Lymphocytes % (A) 17 %; MCH 27.5 pg (25.0-35.0); MCHC 31.1 g/dL (31.0-37.0); MCV 88.6 fL (80.0-100.0); Mean Platelet Volume 6.4; Monocytes # (A) 0.6 k/uL (0-1.0); Monocytes % (A) 7 %; Neutrophils # (A) 5.5 k/uL (1.3-7.7); Neutrophils % (A) 68 %; Poikilocytosis Moderate; RBC 3.51 m/uL (3.80-5.40); RDW 19.5 % (11.5-15.5); WBC 8.1 k/uL (3.8-10.6)
[2016-09-06] MEDS: ASCORBIC ACID 500 MG TAB PO SCH (07:59)
[2016-09-06] MEDS: FAMOTIDINE 20 MG TAB PO SCH (07:59)
[2016-09-06] MEDS: PANTOPRAZOLE 40 MG TABLET PO SCH ×2 (07:59→18:08)
[2016-09-06] MEDS: LOSARTAN 25 MG TAB PO SCH (08:00)
[2016-09-06] MEDS: FERROUS SULFATE 325 MG TAB PO SCH ×2 (08:00→19:53)
[2016-09-06] MEDS: IPRATROPIUM-ALBUTEROL 3 ML NEB INHALATION SCH ×2 (09:09→19:51)
--- NOTE | 2016-09-06 10:20 | P.CONS ---
History of Present Illness - Reason for Consult Consult date: 09/06/16 GI bleed Requesting physician: Bg Fuller - History of Present Illness 81-year-old female admitted with left lower extremity DVT confirmed via lower extremity Doppler. She has a history of breast cancer and DVT in the past maintained on Xarelto but recently discontinued and maintained on aspirin secondary to recent upper GI bleed. Consultation requested for GI bleed evaluation. Patient was evaluated by the GI service 08/19/2016 for severe symptomatic anemia and melena with a hemoglobin of 5.9. She underwent EGD evaluation 2016 Dr. 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 2 small nonbleeding AVM seen in the proximal body of the stomach status post cautery. She received 5 units of blood during that hospitalization. Discharge hemoglobin 8.1. Admission hemoglobin 11.0 presently 9.6. INR 1.1. Receiving intravenous heparin. Stool occult blood negative 2. Denies hematemesis hematochezia melena. Stools are black colored but on iron. No abdominal pain. Review of Systems Constitutional: Denies fever, chills, sweats, weight gain, or loss. HEENT: Negative for migraines, blurred vision or loss, earaches, drainage, tinnitus, oral mucosal lesions, dysphagia, or odynophagia. CARDIAC: Hyperlipidemia. Hypertension. Negative for chest pain, arrhythmias, or palpitation. RESPIRATORY: Negative for shortness of breath, hemoptysis, cough, or sputum production. GI: See HPI for pertinent findings. : Negative for hematuria, urgency, frequency, polyuria, or dysuria. GYNc: Denies possibility of . Negative vaginal discharge. MUSCULOSKELETAL: Negative for muscle aches, swelling, arthritis, and arthralgias. NEUROLOGIC: History of CVA 2. Hematologic: History of DVT. ENDOCRINE: Negative for thyroid problems. SKIN: Negative for rash or itching. PSYCHIATRIC: History of anxiety. 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,, emphysema; hypoglycemia, DVT DURING BACK SURGERY-" HIT AN ARTERY " and other from "low sodium", hx breast cancer, History of Any Multi-Drug Resistant Organisms: None Reported Past Surgical History: Back Surgery, Breast Surgery, Cholecystectomy, Heart Catheterization Additional Past Surgical History / Comment(s): L SUBCLAVIAN ARTERY BYPASS, Rt CAROTID ENDARTECTOMY, rt breast lumpectomy Past Anesthesia/Blood Transfusion Reactions: No Reported Reaction Additional Past Anesthesia/Blood Transfusion Reaction / Comm: PT RECIEVED BLOOD TRANSFUSION Past Psychological History: Anxiety Additional Psychological History / Comment(s): . Smoking Status: Former smoker Past Alcohol Use History: None Reported Past Drug Use History: None Reported - Past Family History Brother(s) Family Medical History: Cancer Sister(s) Family Medical History: Cancer Mother Family Medical History: Coronary Artery Disease (CAD) Additional Family Medical History / Comment(s): enlarged heart Father Family Medical History: Coronary Artery Disease (CAD), CVA/TIA Medications and Allergies Home Medications Medication Instructions Recorded Confirmed Type Ipratropium/Albuterol Sulfate 1 puff INHALATION RT-BID 08/04/13 09/04/16 History [Combivent Respimat Inhaler] Isosorbide Mononitrate ER [Imdur] 30 mg PO HS 08/04/13 09/04/16 History Pravastatin Sodium [Pravachol] 40 mg PO HS 08/04/13 09/04/16 History Aclidinium [place] [Tudorza 1 puff INHALATION RT-BID 04/17/14 09/04/16 History Pressair] Anastrozole [Arimidex] 1 mg PO HS 02/22/16 09/04/16 History Ascorbic Acid [Vitamin C with Stacy 500 mg PO DAILY 02/22/16 09/04/16 History Hips] Aspirin [Adult Low Dose Aspirin EC] 81 mg PO HS 02/22/16 09/04/16 History PARoxetine HCL [Paxil] 10 mg PO HS 02/22/16 09/04/16 History Acetaminophen [Tylenol] 1,000 mg PO BID PRN 08/18/16 09/04/16 History Latanoprost [Xalatan 0.005%] 1 drop LEFT EYE HS 08/18/16 09/04/16 History Denosumab [Prolia] 60 mg SQ Q180D 09/04/16 09/04/16 History Irbesartan [Avapro] 75 mg PO DAILY 09/04/16 09/04/16 History Allergies Allergy/AdvReac Type Severity Reaction Status Date / Time No Known Allergies Allergy Verified 09/04/16 16:42 Physical Exam Vitals: Vital Signs Temp Pulse Pulse Resp BP Pulse Ox 09/06/16 09:19 80 09/06/16 09:10 80 09/06/16 07:00 99.1 F 76 20 149/88 90 L 09/05/16 23:00 99.5 F 67 14 132/67 92 L 09/05/16 16:00 16 09/05/16 15:00 98.8 F 78 16 120/66 94 L Intake and Output 09/05/16 09/06/16 09/06/16 22:59 06:59 14:59 Intake Total 297.36 Balance 297.36 Intake: Intake, IV Titration 297.36 Amount Heparin Sodium,Porcine/ 297.36 D5w Pmx 25,000 unit In Dextrose/Water 1 500ml. bag @ 12 UNITS/KG/HR 16.8 mls/hr IV .Q24H [facility] Rx#: [id number] Other: Voiding Method Bedside Commode # Voids 1 1 # Bowel Movements 1 Weight 70 kg General appearance: The patient is alert, oriented, in no acute distress. HET: Head is normocephalic and atraumatic. Pupils are equal and reactive. Oropharynx is clear without lesions. Neck: Supple without lymphadenopathy. Trachea midline. Heart: S1 S2. Regular rate and rhythm. Lungs: No crackles or wheezes are heard. Abdomen: Soft, nontender, nondistended with bowel sounds. No peritoneal signs. No palpable organomegaly or masses. Extremities: Normal skin color and turgor. No cyanosis, rash, ulceration, clubbing, or edema. Radial and pedal pulses are 2/4 bilaterally. Neurological: No focal deficits. Strength and sensation are grossly intact. Results CBC & Chem 7: 09/06/16 06:25 09/04/16 19:39 Labs: Abnormal Lab Results - Last 24 Hours (Table) 09/05/16 09/05/16 09/06/16 Range/Units 13:45 20:15 06:10 RBC 3.68 L (3.80-5.40) m/uL Hgb 10.2 L (11.4-16.0) gm/dL Hct 33.1 L (34.0-46.0) % MCHC 30.7 L (31.0-37.0) g/dL RDW 19.7 H (11.5-15.5) % Lymphocytes # 0.9 L (1.0-4.8) k/uL APTT 49.3 H 60.2 H (22.0-30.0) sec 09/06/16 Range/Units 06:25 RBC 3.51 L (3.80-5.40) m/uL Hgb 9.6 L (11.4-16.0) gm/dL Hct 31.1 L (34.0-46.0) % MCHC (31.0-37.0) g/dL RDW 19.5 H (11.5-15.5) % Lymphocytes # (1.0-4.8) k/uL APTT (22.0-30.0) sec Assessment and Plan (1) Left leg DVT Narrative/Plan: History of DVT Status: Acute (2) Anemia Narrative/Plan: Acute on chronic anemia possible acute blood loss anemia no evidence of active GI bleeding at this time with Hemoccult stool 2 negative without symptoms of hematemesis hematochezia or melena. Reported dark colored bowel movements most likely from iron supplementation. Status: Acute (3) Gastric AVM Narrative/Plan: History of recent UGIB secondary to bleeding gastric AVM s/p EGD with injection epinephrine and cautery. Status: Resolved Plan: 1. No evidence of active GI bleeding at this time therefore continue with IV heparin for treatment of DVT and iron supplementation; will defer to hematology for further recommendations. Protonix 40 mg twice daily. Close observation of CBC. 2. Vascular consultation. 3. If patient develops manifestations of active GI bleed and/or precipitous drop in hemoglobin will proceed with EGD evaluation. Thank you for this kind referral and the opportunity to participate in the care of your patient. This consultation was discussed with Dr. Wills. The impression and plan of care have been directed as dictated.
[2016-09-06 10:36] LABS: Reticulocyte % 5.5 % (0.5-2.0)
--- NOTE | 2016-09-06 13:23 | P.PN ---
Subjective Patient is an 81-year-old female who presented to [facility] was left lower extremity DVT , left lower extremity Doppler was positive for DVT. Patient has known history of previous left lower extremity DVT in 2004 and in 2013 she has been maintained on Xarelto however she had an admission was gastrointestinal bleeding 2 weeks ago and Xarelto was discontinued at that time he returns to the hospital with left leg swelling Doppler was positive for DVT she was readmitted to medical floor. Patient has known history of extreme difficulty obtaining peripheral IV lines consultation for PICC line was initiated. Patient was started on IV heparin drip serial checks of CBC every 6 hours was initiated hematology consult and gastroenterology consult were initiated. Objective - Vital Signs Vital signs: Vital Signs Temp 99.1 F 09/06/16 07:00 Pulse 80 09/06/16 09:19 Resp 20 09/06/16 07:00 BP 149/88 09/06/16 07:00 Pulse Ox 90 L 09/06/16 07:00 Intake & Output 09/05/16 09/06/16 09/06/16 18:59 06:59 18:59 Intake Total 358 297.36 Balance 358 297.36 Weight 70 kg Intake: Intake, IV Titration 297.36 Amount Heparin Sodium,Porcine/ 297.36 D5w Pmx 25,000 unit In Dextrose/Water 1 500ml. bag @ 12 UNITS/KG/HR 16.8 mls/hr IV .Q24H [facility] Rx#: [id number] Oral 358 Other: Voiding Method Bedside Commode # Voids 1 1 # Bowel Movements 1 - Exam HEENT head normocephalic and atraumatic Neck is supple no JVD no goiter no lymphadenopathy Chest is clear to auscultation no crackles no wheezing Cardiac exam reveals regular heart sounds S1 and S2 no gallops no murmurs Abdomen is soft nontender no organomegaly with normal bowel sounds Extremity exam reveals 2+ edema no cyanosis or clubbing - Labs CBC & Chem 7: 09/06/16 06:25 09/04/16 19:39 Labs: Abnormal Lab Results - Last 24 Hours (Table) 09/05/16 09/05/16 09/06/16 Range/Units 13:45 20:15 06:10 RBC 3.68 L (3.80-5.40) m/uL Hgb 10.2 L (11.4-16.0) gm/dL Hct 33.1 L (34.0-46.0) % MCHC 30.7 L (31.0-37.0) g/dL RDW 19.7 H (11.5-15.5) % Lymphocytes # 0.9 L (1.0-4.8) k/uL Retic Count (0.5-2.0) % APTT 49.3 H 60.2 H (22.0-30.0) sec 09/06/16 09/06/16 Range/Units 06:25 06:25 RBC 3.51 L (3.80-5.40) m/uL Hgb 9.6 L (11.4-16.0) gm/dL Hct 31.1 L (34.0-46.0) % MCHC (31.0-37.0) g/dL RDW 19.5 H (11.5-15.5) % Lymphocytes # (1.0-4.8) k/uL Retic Count 5.5 H (0.5-2.0) % APTT (22.0-30.0) sec Assessment and Plan Plan: #1 left extensive lower extremity DVT patient was started on IV heparin hematology consultation was requested, vascular surgery consult requested #2 recent gastrointestinal bleeding will check CBC every 6 hours GI consultation was requested #3 underlying history of COPD stable at this time #4 underlying history of hypertension well-controlled on current medications #5 underlying history of hyperlipidemia maintained on Pravachol 40 mg daily continue #6 underlying history of coronary artery disease maintained on Imdur continue #7 underlying history of depression maintained on Paxil Medication and labs were reviewed add Protonix 40 mg by mouth twice a day Will follow closely, continue with IV heparin at this time awaiting hematology recommendation
[2016-09-06] MEDS: HEPARIN SODIUM,PORCINE/D5W PMX 25,000 UNIT in DEXTROSE/WATER 1 500ML.BAG IV SCH ×2 (14:05→21:06)
[2016-09-06 14:49] LABS: Anisocytosis Slight; Basophils # (A) 0.1 k/uL (0-0.2); Basophils % (A) 1 %; CH 26.5; CHCM 29.7; Eosinophils # (A) 0.3 k/uL (0-0.7); Eosinophils % (A) 4 %; HCT 30.8 % (34.0-46.0); HGB 9.3 gm/dL (11.4-16.0); Hypochromasia Marked; Luc # (Auto) 0.13; Luc % (Auto) 2; Lymphocytes # (A) 1.1 k/uL (1.0-4.8); Lymphocytes % (A) 14 %; MCH 27.2 pg (25.0-35.0); MCHC 30.4 g/dL (31.0-37.0); MCV 89.5 fL (80.0-100.0); Mean Platelet Volume 6.6; Monocytes # (A) 0.5 k/uL (0-1.0); Monocytes % (A) 6 %; Neutrophils # (A) 5.6 k/uL (1.3-7.7); Neutrophils % (A) 74 %; Poikilocytosis Moderate; RBC 3.44 m/uL (3.80-5.40); RDW 19.4 % (11.5-15.5); WBC 7.5 k/uL (3.8-10.6); WBC (Perox) 7.79
[2016-09-06 15:07] LABS: % Iron Saturation 10.7 % (20-50)
--- NOTE | 2016-09-06 18:12 | P.CONS ---
History of Present Illness - Reason for Consult Consult date: 09/06/16 DVT/GI bleed Requesting physician: Bg Fuller - Chief Complaint LLE swelling - History of Present Illness Ms. Medrano is a very pleasant female pt of Dr. Mckeon who 1st saw her in Nov 2014. Pt was found to have a suspicious density at 2 O'clock in the right breast during routine screening mammogram in August 2014, U/S revealed 0.6 x 0.4x 0.3cm lesion, biopsy was positive for invasive carcinoma, bilateral breast MRI revealed a suspicious lesion 1.6 x 1 x 1.2cm at 4 O'clock as well in the right breast so, on 10/28/2014 she had right breast partial mastectomy and sentinel nodes biopsied, she has a TIA post operatively. Pathology revealed grade I, invasive lobular carcinoma, 2.7cm, focally involving the inferior margin, negative sentinel nodes, ER/AR+ and [id number] negative. She had adjuvant radiation completed 12/2014 and started arimidex. She is current on her f/u with Dr. Mckeon for her breast cancer. We are being asked to see pt for DVT in the LLE complicated by recent GI bleed. Pt has a history of DVT in 2004 post operatively, she recalls being treated with blood thinners for a while and then they were discontinued. In Mar 2014 pt was found to have an unprovoked clot in the LLE and she was placed on coumadin and then transitioned to Xarelto which she continued on. In July 2016 pt presented with black stool, EGD with Dr. 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 Pt has had progressive swelling of the LLE and came in for evaluation, report reads recurrent long segment acute thrombus in the LLE and she has been placed on heparin drip with improvement of swelling and discomfort in the leg and no evidence of acute bleeding. 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,, emphysema; hypoglycemia, DVT DURING BACK SURGERY-" HIT AN ARTERY " and other from "low sodium", hx breast cancer, History of Any Multi-Drug Resistant Organisms: None Reported Past Surgical History: Back Surgery, Breast Surgery, Cholecystectomy, Heart Catheterization Additional Past Surgical History / Comment(s): L SUBCLAVIAN ARTERY BYPASS, Rt CAROTID ENDARTECTOMY, rt breast lumpectomy Past Anesthesia/Blood Transfusion Reactions: No Reported Reaction Additional Past Anesthesia/Blood Transfusion Reaction / Comm: PT RECIEVED BLOOD TRANSFUSION Past Psychological History: Anxiety Additional Psychological History / Comment(s): . Smoking Status: Former smoker Past Alcohol Use History: None Reported Past Drug Use History: None Reported - Past Family History Brother(s) Family Medical History: Cancer Sister(s) Family Medical History: Cancer Mother Family Medical History: Coronary Artery Disease (CAD) Additional Family Medical History / Comment(s): enlarged heart Father Family Medical History: Coronary Artery Disease (CAD), CVA/TIA Medications and Allergies Home Medications Medication Instructions Recorded Confirmed Type Ipratropium/Albuterol Sulfate 1 puff INHALATION RT-BID 08/04/13 09/04/16 History [Combivent Respimat Inhaler] Isosorbide Mononitrate ER [Imdur] 30 mg PO HS 08/04/13 09/04/16 History Pravastatin Sodium [Pravachol] 40 mg PO HS 08/04/13 09/04/16 History Aclidinium [place] [Tudorza 1 puff INHALATION RT-BID 04/17/14 09/04/16 History Pressair] Anastrozole [Arimidex] 1 mg PO HS 02/22/16 09/04/16 History Ascorbic Acid [Vitamin C with Stacy 500 mg PO DAILY 02/22/16 09/04/16 History Hips] Aspirin [Adult Low Dose Aspirin EC] 81 mg PO HS 02/22/16 09/04/16 History PARoxetine HCL [Paxil] 10 mg PO HS 02/22/16 09/04/16 History Acetaminophen [Tylenol] 1,000 mg PO BID PRN 08/18/16 09/04/16 History Latanoprost [Xalatan 0.005%] 1 drop LEFT EYE HS 08/18/16 09/04/16 History Denosumab [Prolia] 60 mg SQ Q180D 09/04/16 09/04/16 History Irbesartan [Avapro] 75 mg PO DAILY 09/04/16 09/04/16 History Allergies Allergy/AdvReac Type Severity Reaction Status Date / Time No Known Allergies Allergy Verified 09/04/16 16:42 Physical Exam Vitals: Vital Signs Temp Pulse Pulse Resp BP Pulse Ox 09/06/16 15:00 98.0 F 71 20 123/72 92 L 09/06/16 09:19 80 09/06/16 09:10 80 09/06/16 07:00 99.1 F 76 20 149/88 90 L 09/05/16 23:00 99.5 F 67 14 132/67 92 L Intake and Output 09/06/16 09/06/16 09/06/16 06:59 14:59 22:59 Intake Total 399.28 Balance 399.28 Intake: Intake, IV Titration 399.28 Amount Heparin Sodium,Porcine/ 399.28 D5w Pmx 25,000 unit In Dextrose/Water 1 500ml. bag @ 12 UNITS/KG/HR 16.8 mls/hr IV .Q24H [facility] Rx#: [id number] Other: # Voids 1 2 Weight 70 kg - Constitutional General appearance: average body habitus, cooperative, no acute distress - EENT Eyes: anicteric sclerae, EOMI, PERRLA, normal appearance ENT: hearing grossly normal, normal oropharynx - Neck Neck: no lymphadenopathy - Respiratory Respiratory: bilateral: CTA - Cardiovascular Heart sounds: normal: S1, S2 leg Peripheral Edema: right: None, left: 1+ - Gastrointestinal General gastrointestinal: no absent bowel sounds, no decreased bowel sounds, no distended, no hepatomegaly, no hyperactive bowel sounds, normal bowel sounds, no organomegaly, no rigid, no scaphoid, soft, no splenomegaly, no tenderness, no umbilical hernia, no ventral hernia - Neurologic Neurologic: CNII-XII intact - Musculoskeletal Musculoskeletal: strength equal bilaterally - Psychiatric Psychiatric: A&O x's 3, appropriate affect, intact judgment & insight Results CBC & Chem 7: 09/06/16 14:45 09/04/16 19:39 Labs: Abnormal Lab Results - Last 24 Hours (Table) 09/05/16 09/06/16 09/06/16 Range/Units 20:15 06:10 06:25 RBC 3.51 L (3.80-5.40) m/uL Hgb 9.6 L (11.4-16.0) gm/dL Hct 31.1 L (34.0-46.0) % MCHC (31.0-37.0) g/dL RDW 19.5 H (11.5-15.5) % Retic Count (0.5-2.0) % APTT 49.3 H 60.2 H (22.0-30.0) sec % Saturation (20-50) % 09/06/16 09/06/16 09/06/16 Range/Units 06:25 14:45 14:45 RBC 3.44 L (3.80-5.40) m/uL Hgb 9.3 L (11.4-16.0) gm/dL Hct 30.8 L (34.0-46.0) % MCHC 30.4 L (31.0-37.0) g/dL RDW 19.4 H (11.5-15.5) % Retic Count 5.5 H (0.5-2.0) % APTT (22.0-30.0) sec % Saturation 10.7 L (20-50) % Venous US: report reviewed Assessment and Plan (1) Left leg DVT Status: Acute (2) GI bleeding Status: Acute Plan: Dr. Velazquez discussed with the pt the risk of resuming anticoagulants with recent GI bleeding and the risk of not being on anticoagulation. Recommendation is for pt to be evaluated by Vascular with consideration for placement of IVC filter to reduce the risk of PE. It is preferred that pt have at least 3 months without any bleeding before resuming any anticoagulants. Ok for pt to stay on heparin drip for now with H&H monitoring, vascular has been consulted and will await their evaluation.
[2016-09-06] MEDS ORDERED: MELATONIN 5 MG TABLET PO PRN (18:16)
[2016-09-06] MEDS ORDERED: LORazepam 0.5 MG TAB PO PRN (18:17)
[2016-09-06 18:22] LABS: Anisocytosis Slight; Basophils # (A) 0.1 k/uL (0-0.2); Basophils % (A) 1 %; CH 26.6; CHCM 29.9; Eosinophils # (A) 0.4 k/uL (0-0.7); Eosinophils % (A) 5 %; HCT 31.8 % (34.0-46.0); HDW 4.55; HGB 9.9 gm/dL (11.4-16.0); Hypochromasia Marked; Luc % (Auto) 3; Lymphocytes # (A) 1.2 k/uL (1.0-4.8); Lymphocytes % (A) 15 %; MCH 27.7 pg (25.0-35.0); MCV 89.3 fL (80.0-100.0); Mean Platelet Volume 6.5; Monocytes # (A) 0.5 k/uL (0-1.0); Monocytes % (A) 7 %; Neutrophils # (A) 5.7 k/uL (1.3-7.7); Neutrophils % (A) 70 %; Poikilocytosis Moderate; RBC 3.56 m/uL (3.80-5.40); RDW 19.5 % (11.5-15.5); WBC 8.1 k/uL (3.8-10.6); WBC (Perox) 8.46
[2016-09-06] MEDS: ANASTROZOLE 1 MG TAB PO SCH (19:53)
[2016-09-06] MEDS: LATANOPROST 0.005% OPHTH DROPS 2.5 ML BTL LEFT EYE SCH (19:54)
[2016-09-06] MEDS: PRAVASTATIN SODIUM 40 MG TAB PO SCH (19:54)
[2016-09-06] MEDS: PARoxetine 10 MG TAB PO SCH (19:54)
[2016-09-06] MEDS: ISOSORBIDE MONONITRATE ER 30 MG TAB.ER.24H PO SCH (22:57)
[2016-09-07 00:14] LABS: Anisocytosis Slight; Basophils # (A) 0.1 k/uL (0-0.2); Basophils % (A) 1 %; CH 26.5; CHCM 29.1; Eosinophils # (A) 0.4 k/uL (0-0.7); Eosinophils % (A) 6 %; HDW 4.49; HGB 9.5 gm/dL (11.4-16.0); Hypochromasia Marked; Luc # (Auto) 0.24; Luc % (Auto) 3; Lymphocytes # (A) 1.3 k/uL (1.0-4.8); Lymphocytes % (A) 17 %; MCH 27.2 pg (25.0-35.0); MCHC 29.7 g/dL (31.0-37.0); MCV 91.5 fL (80.0-100.0); Mean Platelet Volume 6.5; Monocytes # (A) 0.5 k/uL (0-1.0); Monocytes % (A) 7 %; Neutrophils # (A) 4.9 k/uL (1.3-7.7); Neutrophils % (A) 66 %; Poikilocytosis Moderate; RBC 3.49 m/uL (3.80-5.40); RDW 19.7 % (11.5-15.5); WBC 7.4 k/uL (3.8-10.6); WBC (Perox) 7.49
[2016-09-07 06:01] LABS: Anisocytosis Slight; Basophils # (A) 0.1 k/uL (0-0.2); Basophils % (A) 1 %; CH 26.4; CHCM 29.8; Eosinophils # (A) 0.5 k/uL (0-0.7); Eosinophils % (A) 7 %; HCT 30.8 % (34.0-46.0); HDW 4.57; HGB 9.4 gm/dL (11.4-16.0); Hypochromasia Marked; Luc # (Auto) 0.18; Luc % (Auto) 3; Lymphocytes # (A) 1.5 k/uL (1.0-4.8); Lymphocytes % (A) 21 %; MCH 27.3 pg (25.0-35.0); MCHC 30.7 g/dL (31.0-37.0); MCV 89.1 fL (80.0-100.0); Mean Platelet Volume 6.8; Monocytes # (A) 0.6 k/uL (0-1.0); Monocytes % (A) 8 %; Neutrophils # (A) 4.3 k/uL (1.3-7.7); Neutrophils % (A) 62 %; Poikilocytosis Moderate; RBC 3.45 m/uL (3.80-5.40); RDW 19.6 % (11.5-15.5); WBC (Perox) 6.91
[2016-09-07 06:22] LABS: ALT 29 U/L (9-52); AST 20 U/L (14-36); Alkaline Phosphatase 73 U/L (38-126); Anion Gap 7 mmol/L; Blood Urea Nitrogen 9 mg/dL (7-17); Calcium 8.3 mg/dL (8.4-10.2); Carbon Dioxide 29 mmol/L (22-30); Chloride 106 mmol/L (98-107); Glucose 85 mg/dL (74-99); Non-African American GFR(MDRD) >60 (>60 ml/min/1.73 sqM); Potassium 4.5 mmol/L (3.5-5.1); Sodium 142 mmol/L (137-145); Total Bilirubin 0.4 mg/dL (0.2-1.3); Total Protein 5.5 g/dL (6.3-8.2)
[2016-09-07] MEDS: IPRATROPIUM-ALBUTEROL 3 ML NEB INHALATION SCH ×2 (07:19→20:13)
[2016-09-07] MEDS: HEPARIN SODIUM,PORCINE/D5W PMX 25,000 UNIT in DEXTROSE/WATER 1 500ML.BAG IV SCH (08:01)
[2016-09-07] MEDS: PANTOPRAZOLE 40 MG TABLET PO SCH ×2 (08:05→17:59)
[2016-09-07] MEDS: ASCORBIC ACID 500 MG TAB PO SCH (08:05)
[2016-09-07] MEDS: LOSARTAN 25 MG TAB PO SCH (08:06)
[2016-09-07] MEDS: FERROUS SULFATE 325 MG TAB PO SCH ×2 (08:06→20:52)
--- NOTE | 2016-09-07 10:04 | P.PN ---
Subjective Principal diagnosis: DVT anemia Denies hematemesis hematochezia melena. Hemoglobin 9.4. Denies epigastric pain. Receiving IV heparin for left lower extremity DVT. Objective - Vital Signs Vital signs: Vital Signs Temp 98.5 F 09/07/16 07:00 Pulse 66 09/07/16 07:31 Resp 16 09/07/16 07:00 BP 140/70 09/07/16 07:00 Pulse Ox 90 L 09/07/16 07:00 Intake & Output 09/06/16 09/07/16 09/07/16 18:59 06:59 18:59 Intake Total 399.28 597.88 183.4 Balance 399.28 597.88 183.4 Weight 70 kg Intake: Intake, IV Titration 399.28 117.88 183.4 Amount Heparin Sodium,Porcine/ 399.28 117.88 183.4 D5w Pmx 25,000 unit In Dextrose/Water 1 500ml. bag @ 12 UNITS/KG/HR 16.8 mls/hr IV .Q24H [facility] Rx#: [id number] Oral 480 Other: Voiding Method Bedside Commode # Voids 2 1 # Bowel Movements 1 - Exam NGeneral appearance: The patient is alert, oriented, in no acute distress. HET: Head is normocephalic and atraumatic. Pupils are equal and reactive. Oropharynx is clear without lesions. Neck: Supple without lymphadenopathy. Trachea midline. Heart: S1 S2. Regular rate and rhythm. Lungs: No crackles or wheezes are heard. Abdomen: Soft, nontender, nondistended with bowel sounds. No peritoneal signs. No palpable organomegaly or masses. Extremities: Normal skin color and turgor. No cyanosis, rash, ulceration, clubbing, or edema. Radial and pedal pulses are 2/4 bilaterally. Neurological: No focal deficits. Strength and sensation are grossly intact. - Labs CBC & Chem 7: 09/07/16 05:47 09/07/16 05:47 Labs: Abnormal Lab Results - Last 24 Hours (Table) 09/06/16 09/06/16 09/06/16 Range/Units 06:25 14:45 14:45 RBC 3.44 L (3.80-5.40) m/uL Hgb 9.3 L (11.4-16.0) gm/dL Hct 30.8 L (34.0-46.0) % MCHC 30.4 L (31.0-37.0) g/dL RDW 19.4 H (11.5-15.5) % Retic Count 5.5 H (0.5-2.0) % Calcium (8.4-10.2) mg/dL % Saturation 10.7 L (20-50) % Total Protein (6.3-8.2) g/dL Albumin (3.5-5.0) g/dL 09/06/16 09/07/16 09/07/16 Range/Units 18:15 00:00 05:47 RBC 3.56 L 3.49 L 3.45 L (3.80-5.40) m/uL Hgb 9.9 L 9.5 L 9.4 L (11.4-16.0) gm/dL Hct 31.8 L 32.0 L 30.8 L (34.0-46.0) % MCHC 29.7 L 30.7 L (31.0-37.0) g/dL RDW 19.5 H 19.7 H 19.6 H (11.5-15.5) % Retic Count (0.5-2.0) % Calcium (8.4-10.2) mg/dL % Saturation (20-50) % Total Protein (6.3-8.2) g/dL Albumin (3.5-5.0) g/dL 09/07/16 Range/Units 05:47 RBC (3.80-5.40) m/uL Hgb (11.4-16.0) gm/dL Hct (34.0-46.0) % MCHC (31.0-37.0) g/dL RDW (11.5-15.5) % Retic Count (0.5-2.0) % Calcium 8.3 L (8.4-10.2) mg/dL % Saturation (20-50) % Total Protein 5.5 L (6.3-8.2) g/dL Albumin 3.0 L (3.5-5.0) g/dL Assessment and Plan (1) Left leg DVT Narrative/Plan: History of DVT Status: Acute (2) Anemia Narrative/Plan: Acute on chronic anemia possible acute blood loss anemia no evidence of active GI bleeding at this time with Hemoccult stool 2 negative without symptoms of hematemesis hematochezia or melena. Reported dark colored bowel movements most likely from iron supplementation. Status: Acute (3) Gastric AVM Narrative/Plan: History of recent UGIB secondary to bleeding gastric AVM s/p EGD with injection epinephrine and cautery. Status: Resolved Plan: 1. No evidence of active GI bleeding at this time therefore continue with treatment of DVT and iron supplementation; will defer to hematology for further recommendations. Protonix 40 mg twice daily. Close observation of CBC. 2. Endoscopic exams not planned at this time. We'll sign off and be available for questions or concerns. Discharge per medicine/hematology. Assessment and plan of care discussed with Dr. Wills.
--- NOTE | 2016-09-07 11:11 | P.PN ---
Subjective Patient is an 81-year-old female who presented to [facility] was left lower extremity DVT , left lower extremity Doppler was positive for DVT. Patient has known history of previous left lower extremity DVT in 2004 and in 2013 she has been maintained on Xarelto however she had an admission was gastrointestinal bleeding 2 weeks ago and Xarelto was discontinued at that time he returns to the hospital with left leg swelling Doppler was positive for DVT she was readmitted to medical floor. Patient has known history of extreme difficulty obtaining peripheral IV lines consultation for PICC line was initiated. Patient was started on IV heparin drip serial checks of CBC every 6 hours was initiated hematology consult and gastroenterology consult were initiated. Patient has been seen by GI service and hematology service. She remains on IV heparin for a left leg DVT. No evidence of any GI bleeding. Patient reports no blood in her stools. She denies any nausea or vomiting. Denies any abdominal pain. There has a chest pain or shortness of breath. Denies any burning with urination. Awaiting vascular surgery consult Objective - Vital Signs Vital signs: Vital Signs Temp 98.5 F 09/07/16 07:00 Pulse 65 09/07/16 08:00 Resp 16 09/07/16 08:00 BP 140/70 09/07/16 07:00 Pulse Ox 90 L 09/07/16 07:00 Intake & Output 09/06/16 09/07/16 09/07/16 18:59 06:59 18:59 Intake Total 399.28 597.88 423.4 Balance 399.28 597.88 423.4 Weight 70 kg Intake: Intake, IV Titration 399.28 117.88 183.4 Amount Heparin Sodium,Porcine/ 399.28 117.88 183.4 D5w Pmx 25,000 unit In Dextrose/Water 1 500ml. bag @ 12 UNITS/KG/HR 16.8 mls/hr IV .Q24H JARETH Rx#: [id number] Oral 480 240 Other: Voiding Method Bedside Commode Bedside Commode # Voids 2 1 # Bowel Movements 1 - Exam Head normocephalic Neck supple Lungs clear to auscultation bilaterally no wheezing or crackles Heart regular rate and rhythm S1-S2, no rub or gallop Abdomen is soft nontender nondistended positive bowel sounds no hepatosplenomegaly Extremities swelling left leg Neuro alert and orientated to 3 - Labs CBC & Chem 7: 09/07/16 05:47 09/07/16 05:47 Labs: Abnormal Lab Results - Last 24 Hours (Table) 09/06/16 09/06/16 09/06/16 Range/Units 14:45 14:45 18:15 RBC 3.44 L 3.56 L (3.80-5.40) m/uL Hgb 9.3 L 9.9 L (11.4-16.0) gm/dL Hct 30.8 L 31.8 L (34.0-46.0) % MCHC 30.4 L (31.0-37.0) g/dL RDW 19.4 H 19.5 H (11.5-15.5) % Calcium (8.4-10.2) mg/dL % Saturation 10.7 L (20-50) % Total Protein (6.3-8.2) g/dL Albumin (3.5-5.0) g/dL 09/07/16 09/07/16 09/07/16 Range/Units 00:00 05:47 05:47 RBC 3.49 L 3.45 L (3.80-5.40) m/uL Hgb 9.5 L 9.4 L (11.4-16.0) gm/dL Hct 32.0 L 30.8 L (34.0-46.0) % MCHC 29.7 L 30.7 L (31.0-37.0) g/dL RDW 19.7 H 19.6 H (11.5-15.5) % Calcium 8.3 L (8.4-10.2) mg/dL % Saturation (20-50) % Total Protein 5.5 L (6.3-8.2) g/dL Albumin 3.0 L (3.5-5.0) g/dL Assessment and Plan Plan: #1 left extensive lower extremity DVT : Continue IV heparin. Patient has been seen by hematology. Awaiting vascular surgery recommendations in regards to anticoagulation versus IVC filter. 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 Continue Protonix. No evidence of active bleeding. Hemoglobin stable at 9.4. Fecal occult blood negative #3 underlying history of COPD stable at this time #4 underlying history of hypertension well-controlled on current medications #5 underlying history of hyperlipidemia maintained on Pravachol 40 mg daily continue #6 underlying history of coronary artery disease maintained on Imdur continue #7 underlying history of depression maintained on Paxil I performed an examination of the patient and discussed their management with the physician Obstetrical Tech. I have reviewed the Physician Obstetrical Tech's notes and agree with the documented findings and plan of care
--- NOTE | 2016-09-07 17:47 | CONS ---
Date of Consultation: 09/07/2016 This 81 year old female, the patient has been admitted to [facility] with history of left lower recurrent DVT. This patient had history of DVT in the past. The patient was on Xarelto for a long period of time. In July, she ( ) GI bleed and Xarelto was stopped. The patient came in with swelling of the left lower extremity and ultrasound shows recurrent DVT of the left lower extremity. The patient also had history of dark stool but according to the patient she has been taking some iron pills. GI is on consult. Past history: The patient has history of heart failure, COPD, history of deep vein thrombosis, history of hypertension. Surgical history: The patient had a right carotid endarterectomy done in the past by Dr. Jefferson and she is under the care of Dr. Jefferson, vascular surgeon in [place]. She has a regular follow up with him. On examination, neck is supple. No bruit appreciated. Chest was clear to auscultation. Abdomen soft. Femoral pulses palpable. There was mild swelling of the left lower extremity. IMPRESSION: Recurrent deep vein thrombosis. I have discussed with Dr. Fuller. The patient will be put on Eliquis and right now she is on heparin. She will go home and she wants to go follow with Dr. Jefferson, vascular surgeon in [place]. Thank you very much for the consult. PHOEBE
[2016-09-07] MEDS: PRAVASTATIN SODIUM 40 MG TAB PO SCH (20:51)
[2016-09-07] MEDS: PARoxetine 10 MG TAB PO SCH (20:51)
[2016-09-07] MEDS: LATANOPROST 0.005% OPHTH DROPS 2.5 ML BTL LEFT EYE SCH (20:52)
[2016-09-07] MEDS: ISOSORBIDE MONONITRATE ER 30 MG TAB.ER.24H PO SCH (20:52)
[2016-09-07] MEDS: ANASTROZOLE 1 MG TAB PO SCH (20:52)
[2016-09-08] MEDS: HEPARIN SODIUM,PORCINE/D5W PMX 25,000 UNIT in DEXTROSE/WATER 1 500ML.BAG IV SCH ×2 (05:07→07:55)
[2016-09-08 07:25] VITALS: BP 137/81; RESP 16; TEMP 97.2
[2016-09-08 07:36] LABS: Anisocytosis Slight; Basophils # (A) 0.1 k/uL (0-0.2); Basophils % (A) 1 %; CH 26.6; CHCM 29.1; Eosinophils # (A) 0.5 k/uL (0-0.7); Eosinophils % (A) 7 %; HCT 32.7 % (34.0-46.0); HDW 4.43; Hypochromasia Marked; Luc # (Auto) 0.19; Luc % (Auto) 3; Lymphocytes # (A) 1.2 k/uL (1.0-4.8); Lymphocytes % (A) 17 %; MCHC 30.4 g/dL (31.0-37.0); MCV 91.9 fL (80.0-100.0); Mean Platelet Volume 6.5; Monocytes # (A) 0.4 k/uL (0-1.0); Monocytes % (A) 6 %; Neutrophils # (A) 4.4 k/uL (1.3-7.7); Neutrophils % (A) 66 %; Poikilocytosis Moderate; RBC 3.56 m/uL (3.80-5.40); RDW 19.4 % (11.5-15.5); WBC 6.7 k/uL (3.8-10.6); WBC (Perox) 6.97
[2016-09-08 07:45] LABS: Anion Gap 8 mmol/L; Blood Urea Nitrogen 8 mg/dL (7-17); Calcium 8.4 mg/dL (8.4-10.2); Carbon Dioxide 25 mmol/L (22-30); Chloride 108 mmol/L (98-107); Glucose 87 mg/dL (74-99); Non-African American GFR(MDRD) >60 (>60 ml/min/1.73 sqM); Potassium 4.3 mmol/L (3.5-5.1); Sodium 141 mmol/L (137-145)
[2016-09-08] MEDS: FERROUS SULFATE 325 MG TAB PO SCH (07:56)
[2016-09-08] MEDS: LOSARTAN 25 MG TAB PO SCH (07:56)
[2016-09-08] MEDS: ASCORBIC ACID 500 MG TAB PO SCH (07:57)
[2016-09-08] MEDS: PANTOPRAZOLE 40 MG TABLET PO SCH (07:57)
[2016-09-08] MEDS: IPRATROPIUM-ALBUTEROL 3 ML NEB INHALATION SCH (08:35)
[2016-09-08 11:22] VITALS: PULSE 77
[2016-09-08] MEDS ORDERED: APIXABAN 2.5 MG TABLET PO SCH (13:45)
--- NOTE | 2016-09-08 13:47 | P.DS ---
Providers Date of admission: 09/04/16 20:21 Expected date of discharge: 09/08/16 Attending physician: Bg Fuller Consults: 09/05/16 09:30 Consult Physician Routine Consulting Provider: Rancho Velazquez Consult Reason/Comments: DVT and GI bleed Do you want consulting provider notified?: Yes 09/06/16 13:05 Consult Physician Routine Consulting Provider: Boy Guzman Consult Reason/Comments: lower ext DVT Do you want consulting provider notified?: Yes Primary care physician: Astrid Cade [place] [facility] Course: Discharge diagnosis #1 left extensive lower extremity DVT : Continue IV heparin. Patient has been seen by hematology. Patient evaluated by Dr. Guzman who recommends Eliquis 5mg BiD. 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 Continue Protonix. No evidence of active bleeding. Hemoglobin stable at 9.4. Fecal occult blood negative #3 underlying history of COPD stable at this time #4 underlying history of hypertension well-controlled on current medications #5 underlying history of hyperlipidemia maintained on Pravachol 40 mg daily continue #6 underlying history of coronary artery disease maintained on Imdur continue #7 underlying history of depression maintained on Paxil Hospital course Patient is an 81-year-old female who presented to [facility] was left lower extremity DVT , left lower extremity Doppler was positive for DVT. Patient has known history of previous left lower extremity DVT in 2004 and in 2013 she has been maintained on Xarelto however she had an admission was gastrointestinal bleeding 2 weeks ago and Xarelto was discontinued at that time he returns to the hospital with left leg swelling Doppler was positive for DVT she was readmitted to medical floor. Patient has known history of extreme difficulty obtaining peripheral IV lines consultation for PICC line was initiated. Patient was started on IV heparin drip serial checks of CBC every 6 hours was initiated hematology consult and gastroenterology consult were initiated. Patient has been seen by GI service and hematology service. She remains on IV heparin for a left leg DVT. No evidence of any GI bleeding. Patient reports no blood in her stools. Patient was also seen by vascular surgery. They recommended the Eliquis at time of discharge. Patient will receive 1 dose now for discharge. Patient is medically stable for discharge. She'll follow-up with her vascular surgeon in [place]. She also follow-up with her PCP in 1 week. Please refer to chart for any further details. Patient Condition at Discharge: Stable Plan - Discharge Summary New Discharge Prescriptions: New Apixaban [Eliquis] 2.5 mg PO BID #60 tab Continue Pravastatin Sodium [Pravachol] 40 mg PO HS Isosorbide Mononitrate ER [Imdur] 30 mg PO HS Ipratropium/Albuterol Sulfate [Combivent Respimat Inhaler] 1 puff INHALATION RT-BID Aclidinium [place] [Tudorza Pressair] 1 puff INHALATION RT-BID PARoxetine HCL [Paxil] 10 mg PO HS Anastrozole [Arimidex] 1 mg PO HS Ascorbic Acid [Vitamin C with Stacy Hips] 500 mg PO DAILY Latanoprost [Xalatan 0.005%] 1 drop LEFT EYE HS Acetaminophen [Tylenol] 1,000 mg PO BID PRN PRN Reason: Pain Pantoprazole [Protonix] 40 mg PO AC-BRKFST #30 tab Ferrous Sulfate [Iron (65 MG Elemental)] 325 mg PO BID #60 tab Irbesartan [Avapro] 75 mg PO DAILY Denosumab [Prolia] 60 mg SQ Q180D Discontinued Aspirin [Adult Low Dose Aspirin EC] 81 mg PO HS Discharge Medication List Ipratropium/Albuterol Sulfate [Combivent Respimat Inhaler] 1 puff INHALATION RT- BID 08/04/13 [History] Isosorbide Mononitrate ER [Imdur] 30 mg PO HS 08/04/13 [History] Pravastatin Sodium [Pravachol] 40 mg PO HS 08/04/13 [History] Aclidinium [place] [Tudorza Pressair] 1 puff INHALATION RT-BID 04/17/14 [History ] Anastrozole [Arimidex] 1 mg PO HS 02/22/16 [History] Ascorbic Acid [Vitamin C with Stacy Hips] 500 mg PO DAILY 02/22/16 [History] PARoxetine HCL [Paxil] 10 mg PO HS 02/22/16 [History] Acetaminophen [Tylenol] 1,000 mg PO BID PRN 08/18/16 [History] Latanoprost [Xalatan 0.005%] 1 drop LEFT EYE HS 08/18/16 [History] Ferrous Sulfate [Iron (65 MG Elemental)] 325 mg PO BID #60 tab 08/24/16 [Rx] Pantoprazole [Protonix] 40 mg PO AC-BRKFST #30 tab 08/24/16 [Rx] Denosumab [Prolia] 60 mg SQ Q180D 09/04/16 [History] Irbesartan [Avapro] 75 mg PO DAILY 09/04/16 [History] Apixaban [Eliquis] 2.5 mg PO BID #60 tab 09/08/16 [Rx] Follow up Appointment(s)/Referral(s): Astrid Cade DO [Primary Care Provider] - 1 Week Activity/Diet/Wound Care/Special Instructions: Diet: cardiac Activity: as tolerated Follow up with Dr. Jefferson, Patient's vascular surgeon in [place] in 1 week Discharge Disposition: HOME SELF-CARE
[2016-09-08] MEDS ORDERED: APIXABAN 5 MG TAB PO SCH (14:00)
[2016-09-09 13:29] LABS: Methylmalonic Acid 0.12 umol/L (<0.40)
== END 2016-09-08 15:20 | disposition home or self-care (01) | DRG 301 ==
LOC: EC 16:28 → 4MS4W 20:21
PROVIDERS: ADMIT Internal Medicine; ATTEND Internal Medicine
PROC: B548ZZA Ultrasonography of Superior Vena Cava, Guidance (ICD-10-PCS; principal; 2016-09-05 10:25)
PROC: 02HV33Z Insertion of Infusion Device into Superior Vena Cava, Percutaneous Approach (ICD-10-PCS; principal; 2016-09-05 10:25)
DX: I82.402 Acute embolism and thrombosis of unspecified deep veins of left lower extremity (principal); I11.0 Hypertensive heart disease with heart failure; I50.9 Heart failure, unspecified; J44.9 Chronic obstructive pulmonary disease, unspecified; D64.9 Anemia, unspecified; E78.5 Hyperlipidemia, unspecified; F41.9 Anxiety disorder, unspecified; I25.10 Atherosclerotic heart disease of native coronary artery without angina pectoris; Q27.33 Arteriovenous malformation of digestive system vessel; Z79.82 Long term (current) use of aspirin; Z79.899 Other long term (current) drug therapy; Z82.49 Family history of ischemic heart disease and other diseases of the circulatory system; Z85.3 Personal history of malignant neoplasm of breast; Z86.73 Personal history of transient ischemic attack (TIA), and cerebral infarction without residual deficits; Z87.891 Personal history of nicotine dependence; Z92.3 Personal history of irradiation; F32.9 Major depressive disorder, single episode, unspecified
CPT/HCPCS: 36415; 36569; 76937; 77001; 80048; 80053; 82272; 82728; 82747; 83540; 83550; 83921; 85025; 85045; 85610; 85730; 94640

== ENCOUNTER → 2017-01-16 | Outpatient (CLI) | payer MEDICARE, BC ==
[2017-01-16 13:34] LABS: CH 28.5; CHCM 31.5; HCT 45.2 % (34.0-46.0); HDW 2.53; HGB 14.6 gm/dL (11.4-16.0); Hypochromasia Slight; MCH 29.3 pg (25.0-35.0); MCHC 32.3 g/dL (31.0-37.0); MCV 90.9 fL (80.0-100.0); Mean Platelet Volume 6.1; RBC 4.97 m/uL (3.80-5.40); RDW 14.6 % (11.5-15.5); WBC 4.4 k/uL (3.8-10.6)
[2017-01-16 14:06] LABS: ALT 40 U/L (9-52); AST 35 U/L (14-36); Alkaline Phosphatase 63 U/L (38-126); Anion Gap 9 mmol/L; Blood Urea Nitrogen 17 mg/dL (7-17); Calcium 9.9 mg/dL (8.4-10.2); Carbon Dioxide 28 mmol/L (22-30); Chloride 102 mmol/L (98-107); Cholesterol 136 mg/dL (<200); Glucose 91 mg/dL (74-99); HDL Cholesterol 49 mg/dL (40-60); Non-African American GFR(MDRD) >60 (>60 ml/min/1.73 sqM); Potassium 4.8 mmol/L (3.5-5.1); Sodium 139 mmol/L (137-145); Total Bilirubin 0.9 mg/dL (0.2-1.3); Total Protein 6.8 g/dL (6.3-8.2)
== END | disposition home or self-care (01) ==
LOC: LABWHC1 12:49
PROVIDERS: ATTEND Physician Assistant Medical
DX: I10 Essential (primary) hypertension (principal); D63.0 Anemia in neoplastic disease; C50.919 Malignant neoplasm of unspecified site of unspecified female breast
CPT/HCPCS: 36415; 80053; 80061; 84443; 85027

== ENCOUNTER → 2017-04-13 | Outpatient (CLI) | payer BC, MEDICARE ==
[2017-04-13 12:21] LABS: Basophils # (A) 0.1 k/uL (0-0.2); Basophils % (A) 1 %; Eosinophils # (A) 0.1 k/uL (0-0.7); Eosinophils % (A) 3 %; HCT 46.5 % (34.0-46.0); HGB 13.9 gm/dL (11.4-16.0); Hypochromasia Slight; Lymphocytes # (A) 1.5 k/uL (1.0-4.8); Lymphocytes % (A) 32 %; MCH 29.3 pg (25.0-35.0); MCHC 29.9 g/dL (31.0-37.0); Mean Platelet Volume 6.3; Monocytes # (A) 0.5 k/uL (0-1.0); Monocytes % (A) 10 %; Neutrophils # (A) 2.4 k/uL (1.3-7.7); Neutrophils % (A) 52 %; Platelet Count 218 k/uL (150-450); RBC 4.75 m/uL (3.80-5.40); RDW 13.2 % (11.5-15.5); WBC 4.7 k/uL (3.8-10.6)
[2017-04-13 12:34] LABS: ALT 27 U/L (9-52); AST 35 U/L (14-36); Albumin 4.1 g/dL (3.5-5.0); Alkaline Phosphatase 54 U/L (38-126); Anion Gap 8 mmol/L; Blood Urea Nitrogen 18 mg/dL (7-17); Calcium 9.8 mg/dL (8.4-10.2); Carbon Dioxide 29 mmol/L (22-30); Chloride 103 mmol/L (98-107); Cholesterol 133 mg/dL (<200); Glucose 88 mg/dL (74-99); HDL Cholesterol 49 mg/dL (40-60); LDL Cholesterol,Calculated 72 mg/dL (0-99); Sodium 140 mmol/L (137-145); Total Bilirubin 0.7 mg/dL (0.2-1.3); Total Protein 6.6 g/dL (6.3-8.2); Triglycerides 62 mg/dL (<150)
== END | disposition home or self-care (01) ==
LOC: LABWHC1 11:37
PROVIDERS: ATTEND Family Medicine
DX: E55.9 Vitamin D deficiency, unspecified (principal); D64.9 Anemia, unspecified; Z79.899 Other long term (current) drug therapy
CPT/HCPCS: 36415; 80053; 80061; 82728; 84443; 85025

== ENCOUNTER → 2017-11-09 | Outpatient (CLI) | payer MEDICARE, BC ==
[2017-11-09 13:55] LABS: Basophils # (A) 0.1 k/uL (0-0.2); Basophils % (A) 1 %; Eosinophils # (A) 0.1 k/uL (0-0.7); Eosinophils % (A) 3 %; HCT 44.1 % (34.0-46.0); HGB 13.6 gm/dL (11.4-16.0); Hypochromasia Moderate; Lymphocytes # (A) 1.5 k/uL (1.0-4.8); Lymphocytes % (A) 31 %; MCH 29.1 pg (25.0-35.0); MCHC 30.9 g/dL (31.0-37.0); MCV 94.1 fL (80.0-100.0); Mean Platelet Volume 6.3; Monocytes # (A) 0.5 k/uL (0-1.0); Monocytes % (A) 10 %; Neutrophils # (A) 2.5 k/uL (1.3-7.7); Neutrophils % (A) 52 %; Platelet Count 191 k/uL (150-450); RBC 4.69 m/uL (3.80-5.40); RDW 14.2 % (11.5-15.5); WBC 4.7 k/uL (3.8-10.6)
[2017-11-09 14:12] LABS: Calcium 9.8 mg/dL (8.4-10.2); Potassium 4.9 mmol/L (3.5-5.1); Total Bilirubin 0.8 mg/dL (0.2-1.3); Total Protein 6.6 g/dL (6.3-8.2); Uric Acid 4.9 mg/dL (3.7-7.4)
== END ==
LOC: LABWHC1 13:11
PROVIDERS: ATTEND Family Medicine
DX: C50.919 Malignant neoplasm of unspecified site of unspecified female breast (principal); J44.9 Chronic obstructive pulmonary disease, unspecified; I10 Essential (primary) hypertension; I63.9 Cerebral infarction, unspecified
CPT/HCPCS: 36415; 80053; 80061; 84443; 84550; 85025

== ENCOUNTER → 2018-01-04 | Outpatient (CLI) | payer MEDICARE, BC ==
--- NOTE | 2018-01-04 15:31 | NM ---
EXAMINATION TYPE: NM bone scan whole body DATE OF EXAM: 01/04/2018 COMPARISON: NONE HISTORY: Breast cancer Delayed whole-body scanning was performed following the injection of 24.5 mCi Tc 99m MDP. Images acq uired 3 hours post injection. FINDINGS: There is increased uptake at the medial femoral condyles at the knees bilaterally. Findings can be co mpatible with degenerative change. There is increased uptake about the bilateral shoulders likely rel ated to degenerative change. There is increased uptake in the region of T8 posteriorly. Increased uptake is also within the outsole cementer machine ior right T12 level and within the region of L2-L3 and L4 on the left and L2 on the right. Metastatic disease within the lumbar spine is not excluded. Metastatic disease within the mid thoracic level is not excluded. Plain film correlation is recommended. IMPRESSION: 1. Abnormal uptake within the thoracic and lumbar spine. Differential diagnosis would include metasta tic disease and degenerative changes. 2. Changes within the bilateral knees and shoulders are more likely related to degenerative changes.
== END | disposition home or self-care (01) ==
LOC: RADNMMAIN 10:13
PROVIDERS: ATTEND Internal Medicine Hematology & Oncology
DX: R94.8 Abnormal results of function studies of other organs and systems (principal); C50.211 Malignant neoplasm of upper-inner quadrant of right female breast
CPT/HCPCS: 78306; A9503

== ENCOUNTER 2018-04-11 15:07 | Emergency (ER) | payer MEDICARE, BC ==
[2018-04-11] MEDS ORDERED: KETOROLAC 60 MG/2 ML VIAL IM STA (18:11)
--- NOTE | 2018-04-11 18:30 | ED ---
General Adult HPI - General Chief complaint: Back Pain/Injury Stated complaint: Back,leg and ankle pain/Swollen Time Seen by Provider: 04/11/18 15:20 Source: patient, RN notes reviewed Mode of arrival: ambulatory Limitations: no limitations - History of Present Illness Initial comments: This is a 83-year-old female presents emergency Department complaining of chronic left lower back pain. Patient states over the last few days it started to radiate down her left leg and she has noticed some increasing swelling in that leg. Patient states she's on eliquis for a clot she had notified many years ago. Patient states she takes eliquis every day. Patient states the swelling is just started over the last 2 days. Patient denies any recent injury or trauma. Patient denies any abdominal pain patient denies any new back pain. Patient's main complaint is the pain that radiates down the leg from the back and the slight increase in swelling of that leg. Patient denies any chest pain palpitations or difficulty breathing. Patient denies any recent fever chills. - Related Data Home Medications Medication Instructions Recorded Confirmed Ipratropium/Albuterol Sulfate 1 puff INHALATION RT-BID 08/04/13 04/11/18 [Combivent Respimat Inhaler] Isosorbide Mononitrate ER [Imdur] 30 mg PO HS 08/04/13 04/11/18 Pravastatin Sodium [Pravachol] 40 mg PO HS 08/04/13 04/11/18 Aclidinium [place] [Tudorza 1 puff INHALATION RT-BID 04/17/14 04/11/18 Pressair] Anastrozole [Arimidex] 1 mg PO HS 02/22/16 04/11/18 Ascorbic Acid [Vitamin C with Stacy 500 mg PO HS 02/22/16 04/11/18 Hips] Irbesartan [Avapro] 75 mg PO DAILY 09/04/16 04/11/18 Ferrous Sulfate [Iron (65 MG 325 mg PO DAILY 02/05/17 04/11/18 Elemental)] Apixaban [Eliquis] 2.5 mg PO BID 04/11/18 04/11/18 Cholecalciferol [Vitamin D3] 1,000 unit PO DAILY 04/11/18 04/11/18 HYDROcodone/APAP 5-325MG [[place] 1 tab PO BID 04/11/18 04/11/18 5-325] Pantoprazole [Protonix] 40 mg PO DAILY 04/11/18 04/11/18 Allergies Allergy/AdvReac Type Severity Reaction Status Date / Time No Known Allergies Allergy Verified 04/11/18 18:19 Review of Systems ROS Statement: Those systems with pertinent positive or pertinent negative responses have been documented in the HPI. ROS Other: All systems not noted in ROS Statement are negative. 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,, emphysema; hypoglycemia, hx breast cancer, History of Any Multi-Drug Resistant Organisms: None Reported Past Surgical History: Back Surgery, Breast Surgery, Cholecystectomy, Heart Catheterization Additional Past Surgical History / Comment(s): L SUBCLAVIAN ARTERY BYPASS, Rt CAROTID ENDARTECTOMY, rt breast lumpectomy Past Anesthesia/Blood Transfusion Reactions: No Reported Reaction Additional Past Anesthesia/Blood Transfusion Reaction / Comment(s): PT RECIEVED BLOOD TRANSFUSION Past Psychological History: Anxiety Smoking Status: Former smoker Past Alcohol Use History: None Reported Past Drug Use History: None Reported - Past Family History Brother(s) Family Medical History: Cancer Sister(s) Family Medical History: Cancer Mother Family Medical History: Coronary Artery Disease (CAD) Additional Family Medical History / Comment(s): enlarged heart Father Family Medical History: Coronary Artery Disease (CAD), CVA/TIA General Exam - General Exam Comments Initial Comments: GENERAL: Patient is well-developed and well-nourished. Patient is nontoxic and well- hydrated and is in mild distress. ENT: Neck is soft and supple. No significant lymphadenopathy is noted. Oropharynx is clear. Moist mucous membranes. Neck has full range of motion without eliciting any pain. EYES: The sclera were anicteric and conjunctiva were pink and moist. Extraocular movements were intact and pupils were equal round and reactive to light. Eyelids were unremarkable. PULMONARY: Unlabored respirations. Good breath sounds bilaterally. No audible rales rhonchi or wheezing was noted. CARDIOVASCULAR: There is a regular rate and rhythm without any murmurs gallops or rubs. ABDOMEN: Soft and nontender with normal bowel sounds. SKIN: Skin is clear with no lesions or rashes and otherwise unremarkable. NEUROLOGIC: Patient is alert and oriented x3. Cranial nerves II through XII are grossly intact. Motor and sensory are also intact. Normal speech, volume and content. Symmetrical smile. MUSCULOSKELETAL: Normal extremities with adequate strength and full range of motion. Both legs have minimal edema no leg appears bigger than the other. LYMPHATICS: No significant lymphadenopathy is noted PSYCHIATRIC: Normal psychiatric evaluation. Limitations: no limitations Course Vital Signs 04/11/18 04/11/18 15:17 19:00 Temperature 97.9 F Pulse Rate 69 69 Respiratory 18 16 Rate Blood Pressure 143/67 178/75 O2 Sat by Pulse 93 L 95 Oximetry Medical Decision Making - Medical Decision Making Patient ambulated without problem and stated that the Toradol really improved her pain. Disposition Clinical Impression: Sciatica Disposition: HOME SELF-CARE Instructions (If sedation given, give patient instructions): Sciatica (ED) Additional Instructions: Patient should take Aleve twice a day for 3 days. Is patient prescribed a controlled substance at d/c from ED?: No Referrals: Astrid Cade DO [Primary Care Provider] - 1-2 days Time of Disposition: 21:04
[2018-04-11 19:01] VITALS: RESP 16
--- NOTE | 2018-04-11 19:12 | US ---
EXAMINATION TYPE: US venous doppler duplex LE LT DATE OF EXAM: 04/11/2018 6:55 PM COMPARISON: NONE CLINICAL HISTORY: Pain. Pain left leg and edema hx of DVT. Patient on blood thinners. SIDE PERFORMED: Left TECHNIQUE: The lower extremity deep venous system is examined utilizing real time linear array sonog caty with graded compression, doppler sonography and color-flow sonography. VESSELS IMAGED: External Iliac Vein (EIV) Common Femoral Vein Deep Femoral Vein Greater Saphenous Vein * Femoral Vein Popliteal Vein Small Saphenous Vein * Proximal Calf Veins (* superficial vessels) Left Leg: Negative for DVT No evidence of DVT left leg. IMPRESSION: Normal left leg duplex venous sonogram.
--- NOTE | 2018-04-11 19:31 | XR ---
Lumbar spine 3 views. History back pain. Comparison none. FINDINGS: There is a plate with screws fusing anteriorly L5 and S1. Vertebra have normal alignment. There is mo derate hypertrophic spurring throughout the lumbar spine. There is multilevel hypertrophic facet arth ropathy. There is no compression fracture. There is some lucency along the anterior aspect of the L5 vertebral body that could relate to some movement of the plate. IMPRESSION: Multilevel spondylotic changes. Lucency in the anterior aspect of the L5 vertebral body on the latera l view. Osteomyelitis is possible. MR scan or CT scan would be helpful for further evaluation if clin ically indicated. No compression fracture.
[2018-04-11] MEDS ORDERED: cloNIDine HCL 0.1 MG TAB PO STA (21:20)
[2018-04-11 21:28] VITALS: BP 174/66; PULSE 79; TEMP 98
== END 2018-04-11 21:27 | disposition home or self-care (01) ==
LOC: EC 15:07
DX: M54.32 Sciatica, left side (principal); R60.0 Localized edema; I11.0 Hypertensive heart disease with heart failure; I50.9 Heart failure, unspecified; M19.90 Unspecified osteoarthritis, unspecified site; J44.9 Chronic obstructive pulmonary disease, unspecified; E78.5 Hyperlipidemia, unspecified; F41.9 Anxiety disorder, unspecified; Z85.3 Personal history of malignant neoplasm of breast; Z86.73 Personal history of transient ischemic attack (TIA), and cerebral infarction without residual deficits; Z86.718 Personal history of other venous thrombosis and embolism; Z87.891 Personal history of nicotine dependence; Z79.01 Long term (current) use of anticoagulants; Z79.899 Other long term (current) drug therapy; Z79.891 Long term (current) use of opiate analgesic; Z95.818 Presence of other cardiac implants and grafts
CPT/HCPCS: 72100; 93971; 99284; 96372; J1885

== ENCOUNTER → 2018-05-02 | Outpatient (CLI) | payer MEDICARE, BC ==
--- NOTE | 2018-05-03 03:52 | MR ---
EXAMINATION TYPE: MR lumbar spine wo/w con DATE OF EXAM: 05/02/2018 COMPARISON: None HISTORY: Abnormal xray / Breast cancer TECHNIQUE: Multiplanar, multisequence images of the lumbar spine were acquired utilizing 7.5 mL intravenous Gada vist gadolinium contrast. Multiplanar multiecho imaging of the lumbar spine was performed without and subsequently with intrave nous contrast. The vertebra have normal alignment. There is moderately severe narrowing of the disc spaces throughou t the lumbar spine. There is no compression fracture. There is old anterior fusion surgery and disc p rosthesis at L5-S1. There is posterior central disc herniation from T12 to L5. There is hypertrophic multilevel facet arthropathy. There is a mild relative spinal stenosis and lateral recess stenosis at L3-4. There is slightly more severe spinal stenosis at L2-3. There is no lumbar paraspinal mass. Con trast images show no pathologic enhancement. I see no focal bone destruction. IMPRESSION: Moderate multilevel spondylotic changes. Multilevel mild spinal stenosis as above. No compression fra cture. No evidence of metastatic disease. Multiple posterior lumbar disc herniations contributing to the spinal stenosis.
== END | disposition home or self-care (01) ==
LOC: RADMRIMAIN 13:53
PROVIDERS: ATTEND Family Medicine
DX: M48.061 Spinal stenosis, lumbar region without neurogenic claudication (principal); M51.26 Other intervertebral disc displacement, lumbar region; M47.816 Spondylosis without myelopathy or radiculopathy, lumbar region; C50.919 Malignant neoplasm of unspecified site of unspecified female breast
CPT/HCPCS: 82565; 72158; 36415; A9585

== ENCOUNTER → 2018-05-15 | Outpatient (CLI) | payer MEDICARE, BC ==
[2018-05-15 13:31] LABS: HCT 47.4 % (34.0-46.0); Hypochromasia Moderate; MCH 27.6 pg (25.0-35.0); MCHC 29.6 g/dL (31.0-37.0); MCV 93.3 fL (80.0-100.0); Mean Platelet Volume 6.4; Platelet Count 223 k/uL (150-450); RBC 5.08 m/uL (3.80-5.40); RDW 14.3 % (11.5-15.5); WBC 4.6 k/uL (3.8-10.6)
[2018-05-15 19:15] LABS: ALT 18 U/L (8-44); AST 27 U/L (13-35); Albumin/Globulin Ratio 2.21 (1.60-3.17); Alkaline Phosphatase 56 U/L (41-126); Calcium 9.1 mg/dL (8.7-10.3); Carbon Dioxide 26.8 mmol/L (21.6-31.8); Chloride 105 mmol/L (96-109); Cholesterol 120 mg/dL (0-200); Globulin 1.9 g/dL (1.6-3.3); Glucose 86 mg/dL (70-110); Potassium 4.4 mmol/L (3.5-5.5); Sodium 140 mmol/L (135-145); Total Bilirubin 0.7 mg/dL (0.2-1.2); Total Protein 6.1 g/dL (6.2-8.2); Triglycerides <50.0 mg/dL (0.0-149.0); VLDL Calculation 9.98 mg/dL (5.00-40.00)
[2018-05-15 21:48] LABS: Hemoglobin A1C 6.1 % (4.0-6.0)
== END | disposition home or self-care (01) ==
LOC: LABWHC1 12:02
PROVIDERS: ATTEND Family Medicine
DX: I25.10 Atherosclerotic heart disease of native coronary artery without angina pectoris (principal); E11.9 Type 2 diabetes mellitus without complications; E03.9 Hypothyroidism, unspecified; R53.83 Other fatigue
CPT/HCPCS: 36415; 80053; 80061; 83036; 84443; 85027

== ENCOUNTER → 2018-09-07 | Outpatient (CLI) | payer MEDICARE, BC ==
[2018-09-07 12:06] LABS: HCT 38.9 % (34.0-46.0); HGB 12.2 gm/dL (11.4-16.0); Hypochromasia Marked; MCHC 31.5 g/dL (31.0-37.0); MCV 92.3 fL (80.0-100.0); Mean Platelet Volume 6.7; Platelet Count 215 k/uL (150-450); Prothrombin Time 10.8 sec (9.0-12.0); RBC 4.22 m/uL (3.80-5.40); RDW 15.2 % (11.5-15.5)
[2018-09-07 13:11] LABS: Erythrocyte Sedimentation Rate 7 mm/hr (0-20)
[2018-09-07 18:37] LABS: ALT 18 U/L (8-44); AST 27 U/L (13-35); Albumin/Globulin Ratio 2.28 (1.60-3.17); Alkaline Phosphatase 58 U/L (41-126); BUN/Creat Ratio 18.75 Ratio (12.00-20.00); C Reactive Protein <0.4 mg/dL (0.0-0.8); Calcium 8.9 mg/dL (8.7-10.3); Carbon Dioxide 28.8 mmol/L (21.6-31.8); Chloride 106 mmol/L (96-109); Cholesterol 118 mg/dL (0-200); Globulin 1.8 g/dL (1.6-3.3); Glucose 85 mg/dL (70-110); Potassium 4.9 mmol/L (3.5-5.5); Sodium 143 mmol/L (135-145); Total Bilirubin 0.5 mg/dL (0.3-1.2); Total Protein 5.9 g/dL (6.2-8.2); Triglycerides <50.0 mg/dL (0.0-149.0); VLDL Calculation 9.98 mg/dL (5.00-40.00)
== END | disposition home or self-care (01) ==
LOC: LABWHC1 10:42
PROVIDERS: ATTEND Family Medicine
DX: I25.10 Atherosclerotic heart disease of native coronary artery without angina pectoris (principal)
CPT/HCPCS: 36415; 80053; 80061; 84443; 85027; 85610; 85652; 86140

== ENCOUNTER → 2019-01-01 | Outpatient (CLI) | payer MEDICARE, BC ==
[2019-01-01 12:46] LABS: HCT 42.2 % (34.0-46.0); HGB 12.9 gm/dL (11.4-16.0); Hypochromasia Slight; MCH 28.6 pg (25.0-35.0); MCHC 30.7 g/dL (31.0-37.0); MCV 93.2 fL (80.0-100.0); Mean Platelet Volume 6.5; Platelet Count 227 k/uL (150-450); RBC 4.53 m/uL (3.80-5.40); RDW 13.7 % (11.5-15.5); WBC 5.5 k/uL (3.8-10.6)
[2019-01-01 17:43] LABS: Chloride 106 mmol/L (96-109); Chol/HDL Ratio 2.93; Cholesterol 129 mg/dL (0-200); Glucose 90 mg/dL (70-110); Potassium 4.8 mmol/L (3.5-5.5); Sodium 141 mmol/L (135-145); Triglycerides <50.0 mg/dL (0.0-149.0); Uric Acid 5.4 mg/dL (2.9-7.7)
[2019-01-01 17:44] LABS: ALT 24 U/L (8-44); AST 30 U/L (13-35); African American GFR (CKD) 68.5 (60.0-200.0); Albumin/Globulin Ratio 2.47 (1.60-3.17); Alkaline Phosphatase 54 U/L (41-126); Calcium 9.3 mg/dL (8.7-10.3); Globulin 1.7 g/dL (1.6-3.3); Total Bilirubin 0.5 mg/dL (0.2-1.2); Total Protein 5.9 g/dL (6.2-8.2)
== END | disposition home or self-care (01) ==
LOC: LABWHC1 10:54
PROVIDERS: ATTEND Family Medicine
DX: I25.10 Atherosclerotic heart disease of native coronary artery without angina pectoris (principal); M81.0 Age-related osteoporosis without current pathological fracture
CPT/HCPCS: 36415; 80053; 80061; 82306; 84443; 84550; 85027

== ENCOUNTER 2019-12-11 20:23 | Inpatient (IN) | payer MEDICARE, BC ==
--- NOTE | 2019-12-11 21:40 | CT ---
EXAMINATION TYPE: CT brain bela wo con DATE OF EXAM: 12/11/2019 COMPARISON: 03/12/2013 HISTORY: Fall injury CT DLP: 1323.4 mGycm Automated exposure control for dose reduction was used. There is some cerebral cortical atrophy. There is hypodensity in the right posterior frontal lobe and right anterior temporal lobe consistent with old infarct. There is no mass effect nor midline shift. There is no sign of intracranial hemorrhage. The calvarium is intact. There is 2 cm area of hypodensity in the superior aspect left cerebellar hemisphere. Cervical vertebra show some straightening. There is spondylotic changes in the cervical spine from C2 to C7 with spurring of the endplates. There is more severe hypertrophic spurring at C4-5 and C5-6. T here is no evidence of a fracture. There is multilevel cervical facet arthropathy. I see no bony dest ructive process. IMPRESSION: Cerebral atrophy. 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 Old 2 cm cortical infa rct superior aspect left cerebellar hemisphere unchanged. No acute intracranial abnormality. Spondylotic changes in the cervical spine. No fracture. No significant change compared to old exam.
--- NOTE | 2019-12-11 22:40 | XR ---
EXAMINATION TYPE: XR pelvis AP view DATE OF EXAM: 12/11/2019 COMPARISON: NONE HISTORY: Pain TECHNIQUE: Single view FINDINGS: Pelvic ring is intact. Proximal femurs and hip joints are intact. Sacroiliac joints appear normal. There is L5-S1 fusion surgery. IMPRESSION: No acute abnormality the pelvis.
--- NOTE | 2019-12-11 22:41 | XR ---
EXAMINATION TYPE: XR sacrum coccyx DATE OF EXAM: 12/11/2019 COMPARISON: NONE HISTORY: Pain TECHNIQUE: 3 views FINDINGS: Sacral segments have normal alignment. There is anterior fusion surgery at L5-S1. Sacroilia c joints appear normal. IMPRESSION: Negative sacrum and coccyx exam.
--- NOTE | 2019-12-11 22:43 | XR ---
EXAMINATION TYPE: XR lumbar spine 2 or 3V DATE OF EXAM: 12/11/2019 COMPARISON: 04/11/2018 HISTORY: Back pain TECHNIQUE: 3 views FINDINGS: Lumbar vertebra have normal alignment. There is narrowing of disc spaces with spurring thro ughout the lumbar spine. There is no compression fracture. There is anterior fusion surgery at L5-S1. There is probably L4 and L5 left-sided laminectomy. IMPRESSION: Moderate multilevel spondylotic changes. No fracture seen.
[2019-12-11] MEDS ORDERED: HYDROcodone/APAP 5-325MG 1 EACH TAB PO STA (22:44)
--- NOTE | 2019-12-11 23:06 | ED ---
General Adult HPI - General Source: EMS, RN notes reviewed, old records reviewed Mode of arrival: EMS Limitations: physical limitation <Raghu Gallegos - Last Filed: 12/11/19 23:05> <Ar Panchal - Last Filed: 12/12/19 01:24> - General Chief complaint: Fall Stated complaint: Fall Time Seen by Provider: 12/11/19 20:42 - History of Present Illness Initial comments: 84-year-old female patient presents to ED for evaluation mechanical fall. Patient reports that she was in her kitchen when she was attempting to put a pot of water on the stove was to have the when she attempted to move the pot of water back to the sink she fell to the ground she had her face on a cabinet she is complaining of some mild headache and mild low back and coccyx pain. Denies any loss of consciousness. Patient laid on the ground for about one hour prior to life alert coming. Systemic: Pt denies fatigue, fever/chills, rash. Pt denies weakness, night sweats, weight loss. Neuro: Pt denies visual disturbances, syncope or pre-syncope. HEENT: Pt denies ocular discharge or irritation, otalgia, rhinorrhea, ph aryngitis or notable lymphadenopathy. Cardiopulmonary: Pt denies chest pain, SOB, heart palpitations, dyspnea on exertion. Abdominal/GI: Pt denies abdominal pain, n/v/d. : Pt denies dysuria, burning w/ urination, frequency/urgency. Denies new onset urinary or bowel incontinence. MSK: Pt denies myalgia, loss of strength or function in extremities. Neuro: Pt denies new onset weakness, paresthesias. (Raghu Gallegos) - Related Data Home Medications Medication Instructions Recorded Confirmed Isosorbide Mononitrate ER [Imdur] 30 mg PO HS 08/04/13 12/11/19 Pravastatin Sodium [Pravachol] 40 mg PO HS 08/04/13 12/11/19 Anastrozole [Arimidex] 1 mg PO HS 02/22/16 12/11/19 Ascorbic Acid [Vitamin C with Stacy 500 mg PO HS 02/22/16 12/11/19 Hips] Ferrous Sulfate [Iron (65 MG 325 mg PO DAILY 02/05/17 12/11/19 Elemental)] Cholecalciferol [Vitamin D3] 1,000 unit PO DAILY 04/11/18 12/11/19 Pantoprazole [Protonix] 40 mg PO DAILY 04/11/18 12/11/19 Aspirin 325 mg PO DAILY 12/11/19 12/11/19 FLUoxetine HCL [PROzac] 10 mg PO DAILY 12/11/19 12/11/19 Allergies Allergy/AdvReac Type Severity Reaction Status Date / Time No Known Allergies Allergy Verified 12/11/19 23:45 Review of Systems ROS Other: All systems not noted in ROS Statement are negative. <Raghu Gallegos - Last Filed: 12/11/19 23:05> ROS Other: All systems not noted in ROS Statement are negative. <Ar Panchal - Last Filed: 12/12/19 01:24> ROS Statement: Those systems with pertinent positive or pertinent negative responses have been documented in the HPI. Past Medical History Past Medical History: Cancer, Chest Pain / Angina, Heart Failure, COPD, CVA/TIA, Deep Vein Thrombosis (DVT), Hyperlipidemia, Hypertension, Osteoarthritis (OA), Pneumonia Additional Past Medical History / Comment(s): CVA X2- LEFT SIDE WEAKNESS-uses a cane,, emphysema; hypoglycemia, hx breast cancer, History of Any Multi-Drug Resistant Organisms: None Reported Past Surgical History: Back Surgery, Breast Surgery, Cholecystectomy, Heart Catheterization Additional Past Surgical History / Comment(s): L SUBCLAVIAN ARTERY BYPASS, Rt CAROTID ENDARTECTOMY, rt breast lumpectomy Past Anesthesia/Blood Transfusion Reactions: No Reported Reaction Additional Past Anesthesia/Blood Transfusion Reaction / Comment(s): PT RECIEVED BLOOD TRANSFUSION Past Psychological History: Anxiety Past Alcohol Use History: None Reported Past Drug Use History: None Reported - Past Family History Brother(s) Family Medical History: Cancer Sister(s) Family Medical History: Cancer Mother Family Medical History: Coronary Artery Disease (CAD) Additional Family Medical History / Comment(s): enlarged heart Father Family Medical History: Coronary Artery Disease (CAD), CVA/TIA <Raghu Gallegos - Last Filed: 12/11/19 23:05> General Exam Limitations: physical limitation <Raghu Gallegos - Last Filed: 12/11/19 23:05> General appearance: alert, in no apparent distress Head exam: Present: atraumatic, normocephalic, normal inspection Eye exam: Present: normal appearance, PERRL, EOMI. Absent: scleral icterus, conjunctival injection, periorbital swelling ENT exam: Present: normal exam, mucous membranes moist Neck exam: Present: normal inspection. Absent: tenderness, meningismus, lymphadenopathy Respiratory exam: Present: normal lung sounds bilaterally. Absent: respiratory distress, wheezes, rales, rhonchi, stridor Cardiovascular Exam: Present: regular rate, normal rhythm, normal heart sounds. Absent: systolic murmur, diastolic murmur, rubs, gallop, clicks GI/Abdominal exam: Present: soft, normal bowel sounds. Absent: distended, tenderness, guarding, rebound, rigid Extremities exam: Present: normal inspection, full ROM, normal capillary refill. Absent: tenderness, pedal edema, joint swelling, calf tenderness Back exam: Present: normal inspection Neurological exam: Present: alert, oriented X3, CN II-XII intact Psychiatric exam: Present: normal affect, normal mood Skin exam: Present: warm, dry, intact, normal color. Absent: rash <Ar Panchal - Last Filed: 12/12/19 01:24> - General Exam Comments Initial Comments: Constitutional: NAD, AOX3, Pt has pleasant affect. HEENT: NC/AT, trachea midline, neck supple, no lymphadenopathy. Posterior pharynx non erythematous, without exudates. External ears appear normal, without discharge. Mucous membranes moist. Eyes PERRLA, EOM intact. There is no scleral icterus. No pallor noted. Cardiopulmonary: RRR, no murmurs, rubs or gallops, no JVD noted. Lungs CTAB in anterior and posterior [place]. No peripheral edema. Abdominal exam: Abdomen soft and non-distended. Abdomen non-tender to palpation in all 4 quadrants. Bowel sounds active in LLQ. No hepatosplenomegaly. No ecchymosis Neuro: CN II-XII intact. No nuchal rigidity. No raccon eyes, no ball sign, no hemotympanum. Mild right paracervical tenderness. MSK: Full active ROM in upper and lower extremities, 5/5 stregnth. Mild lumbar tenderness. (Raghu Gallegos) Course <Ar Panchal - Last Filed: 12/12/19 01:24> Vital Signs 12/11/19 12/11/19 12/11/19 20:25 20:30 23:00 Temperature 98.1 F Pulse Rate 55 L 52 L Respiratory 18 18 Rate Blood Pressure 181/81 205/78 O2 Sat by Pulse 95 95 Oximetry 12/12/19 12/12/19 12/12/19 00:11 00:20 00:43 Temperature Pulse Rate 50 L 51 L 50 L Respiratory 18 Rate Blood Pressure 145/68 O2 Sat by Pulse 95 Oximetry 12/12/19 01:05 Temperature Pulse Rate 81 Respiratory 18 Rate Blood Pressure 141/72 O2 Sat by Pulse 91 L Oximetry - Reevaluation(s) Reevaluation #1: 12/12/19 01:23 Medical record is reviewed (Ar Panchal) Reevaluation #2: 12/12/19 01:23 Patient still feels very weak does not feel couple going home (Ar Panchal) Reevaluation #3: 12/12/19 01:23 Blood pressure is improved here in the emergency department (Ar Panhcal) Reevaluation #4: 12/12/19 01:23 Patient informed of findings and questions are answered (Ar Panchal) EKG Findings - EKG Comments: EKG Findings:: EKG sinus rhythm 69 DC 200 QRS 60 QTC 443 <Ar Panchal - Last Filed: 12/12/19 01:24> Medical Decision Making <Raghu Gallegos - Last Filed: 12/11/19 23:05> - Radiology Data Radiology results: report reviewed (Chest x-rays negative for acute disease), image reviewed <Ar Panchal - Last Filed: 12/12/19 01:24> - Medical Decision Making 84-year-old female patient presents to ED for evaluation mechanical fall. Patient reports that she was in her kitchen when she was attempting to put a pot of water on the stove was to have the when she attempted to move the pot of water back to the sink she fell to the ground she had her face on a cabinet she is complaining of some mild headache and mild low back and coccyx pain. Denies any loss of consciousness. Patient laid on the ground for about one hour prior to life alert coming. Patient also has a stable, afebrile. Mild lumbar tenderness to palpation. Range of motion intact. Neurologic exam intact. CT brain C-spine displayed no acute cranial abnormality. No significant change in the cervical spine compared old exam. I film pelvis sacrum coccyx lumbar spine negative for acute pathology. Patient was discharged to follow-up with primary care provider and return to ER if any worsening symptoms. Case discussed with Dr. Panchal. (Raghu Gallegos) 84 female DF for evaluation patient again fell status post fall no triadic injury from fall patient is persistent weakness here in the ER, we will admit patient for further evaluation and treatment patient also having borderline low oxygen with COPD exacerbation (Ar Panchal) Disposition Is patient prescribed a controlled substance at d/c from ED?: No <Raghu Gallegos - Last Filed: 12/11/19 23:05> Is patient prescribed a controlled substance at d/c from ED?: No <Ar Panchal - Last Filed: 12/12/19 01:24> Clinical Impression: Fall, COPD (chronic obstructive pulmonary disease), Dehydration, High risk for readmission Disposition: ADMITTED IP TO THIS HOSP Condition: Stable Additional Instructions: follow-up with primary care provider tomorrow. Return to ER if any worsening symptoms. Referrals: Tacos Saha MD [Primary Care Provider] - 1-2 days
[2019-12-11] MEDS ORDERED: SODIUM CHLORIDE 0.9% 1,000 ML IV STA ×2 (23:58)
[2019-12-11] MEDS ORDERED: IPRATROPIUM-ALBUTEROL 3 ML NEB INHALATION STA (23:59)
[2019-12-12] MEDS: hydrALAZINE HCL 20 MG/ML 1 ML VIAL IVP STA ×2 (00:43→02:30)
--- NOTE | 2019-12-12 00:46 | XR ---
EXAM: XR Chest, 2 Views CLINICAL HISTORY: ITS.REASON XR Reason: Weakness TECHNIQUE: Frontal and lateral views of the chest. COMPARISON: 08/18/2016. FINDINGS: Lungs: The lungs are well aerated. Prominence of central pulmonary vasculature. Pleural space: Unremarkable. No pneumothorax. Heart: Cardiomediastinal silhouette unremarkable. Mediastinum: See above. Bones/joints: Osteopenia. Moderate degenerative disc disease of the thoracic spine and levoscoliosis. Soft tissues: Surgical clips about the thyroid bed left of midline. Vasculature: Atherosclerotic disease of the aortic knob. IMPRESSION: 1. Prominence of central pulmonary vasculature. 2. Minimal subsegmental atelectasis at the left lung base per 3. Osteopenia appeared 4. Clinical correlation is advised to exclude incipient congestive heart failure.
[2019-12-12] MEDS ORDERED: SODIUM CHLORIDE 0.9% 1,000 ML IV ONE (01:22)
[2019-12-12] MEDS ORDERED: methylPREDNISolone SOD SUCCI 125 MG/2 ML VIAL IV STA (01:24)
[2019-12-12 01:47] LABS: Basophils % (A) 0 %; Eosinophils % (A) 1 %; HCT 50.4 % (34.0-46.0); HGB 15.2 gm/dL (11.4-16.0); Hypochromasia Slight; Lymphocytes # (A) 2.4 k/uL (1.0-4.8); Lymphocytes % (A) 29 %; MCH 28.6 pg (25.0-35.0); MCHC 30.3 g/dL (31.0-37.0); MCV 94.6 fL (80.0-100.0); Mean Platelet Volume 7.2; Monocytes # (A) 0.4 k/uL (0-1.0); Monocytes % (A) 5 %; Neutrophils # (A) 5.4 k/uL (1.3-7.7); Neutrophils % (A) 64 %; Platelet Count 209 k/uL (150-450); RBC 5.32 m/uL (3.80-5.40); RDW 14.4 % (11.5-15.5); WBC 8.4 k/uL (3.8-10.6)
[2019-12-12 01:48] LABS: Albumin 4.6 g/dL (3.5-5.0); Calcium 10.3 mg/dL (8.4-10.2); Phosphorus 3.5 mg/dL (2.5-4.5); Potassium 3.3 mmol/L (3.5-5.1); Total Bilirubin 0.8 mg/dL (0.2-1.3); Total Protein 7.4 g/dL (6.3-8.2)
[2019-12-12 02:38] LABS: Partial Thromboplastin Time 22.9 sec (22.0-30.0); Prothrombin Time 10.6 sec (9.0-12.0)
[2019-12-12] MEDS ORDERED: POTASSIUM CHLORIDE 20 MEQ in WATER FOR INJECTION 1 100ML.BAG IVPB ONE (02:45)
[2019-12-12] MEDS ORDERED: POTASSIUM BICARBONATE/CIT AC 20 MEQ TABLET.EFF PO ONE (02:45)
[2019-12-12] MEDS ORDERED: IPRATROPIUM-ALBUTEROL 3 ML NEB INHALATION SCH (04:00)
[2019-12-12] MEDS ORDERED: HYDROmorphone 0.5 MG/0.5 ML SYRINGE IVP STA (05:39)
[2019-12-12] MEDS ORDERED: methylPREDNISolone SOD SUCCI 125 MG/2 ML VIAL IV SCH (06:00)
[2019-12-12] MEDS: FLUoxetine HCL 10 MG CAP PO SCH (08:03)
[2019-12-12] MEDS: ASPIRIN 325 MG TAB PO SCH (08:03)
[2019-12-12] MEDS: PANTOPRAZOLE 40 MG TABLET PO SCH (08:03)
[2019-12-12] MEDS: CHOLECALCIFEROL 1,000 UNIT TAB PO SCH (08:03)
[2019-12-12] MEDS: FERROUS SULFATE 325 MG TAB PO SCH (08:03)
[2019-12-12] MEDS: DEXAMETHASONE SOD PHOSPHATE 4 MG/ML 1 ML VIAL IV SCH ×3 (08:04→23:22)
[2019-12-12] MEDS: HEPARIN SODIUM,PORCINE 5,000 UNIT/ML 1 ML VIAL SQ SCH ×2 (08:04→20:12)
[2019-12-12] MEDS ORDERED: BACLOFEN 10 MG TAB PO PRN (09:00)
--- NOTE | 2019-12-12 13:05 | P.HPIM ---
History of Present Illness H&P Date: 12/12/19 Chief Complaint: Back pain HISTORY OF PRESENT ILLNESS This is an 84-year-old -Algerian female patient of Dr. Dr. Saha with past medical history of COPD, 2 strokes, carotid artery disease status post right endarterectomy, history of left lower extremity DVT in 2017, history of breast cancer status post lumpectomy and radiation therapy in 2015, hypertension, hyperlipidemia, bleeding gastric AVM and 2017, chronic back pain with previous fusion of the lumbar spine initially at [facility] and then at [facility], remote history of tobacco use. Patient presented to [facility] emergency center after a second fall in which she was unable to get up from the floor. She had low back pain and coccyx pain. No loss of consciousness but complains of pain also to the bilateral knees. Complains of generalized weakness. No significant injury is noted to the knees. She was found to be afebrile, heart rate 55, blood pressure 181/81 and pulse ox 95% on room air. Lumbar x-ray revealed moderate multilevel spondylotic changes. No fracture. CAT scan of the brain revealed cerebral atrophy. Old right post erior frontal lobe cortical infarct unchanged. Old 2 cm cortical infarcts. Aspect left cerebellar hemisphere unchanged. No acute intracranial abnormality. CAT scan of the cervical spine revealed spondylotic changes to the cervical spine. No fracture. No significant change. Sacral x-ray was negative. Pelvic x-ray showed no acute abnormality. Chest x-ray reveals prominence of central pulmonary vasculature. Minimal subsegmental atelectasis of the lung left base. Osteopenia. Clinical correlation advised to exclude heart failure. CBC is unremarkable. Potassium 3.3 and has been replaced. Otherwise electrolytes renal function within normal limits. AST 41, CK 229 and repeat 109. ProBNP 154. Initial lactic acid 2.8 with repeated less than 0.5. Patient was started on IV Decadron and placed on the observation status and consult obtained with orthopedic spine.They have ordered TLSO brace and mental health case manager is making arrangements. PT and OT requested. REVIEW OF SYSTEMS Constitutional: No fever, no chills, no night sweats. No weight change. Reports weakness, Reports fatigue. No daytime sleepiness. EENT: No headache. No blurred vision or double vision, no loss of vision. No loss of Hearing, no ringing in the ears, no dizziness. No nasal drainage or congestion. No epistaxis. No sore throat. Lungs: No shortness of breath, cough, no sputum production. No wheezing. Cardiovascular: No chest pain, no lower extremity edema. No palpitations. No paroxysmal nocturnal dyspnea. No orthopnea. No lightheadedness or dizziness. No syncopal episodes. Abdominal: No abdominal pain. No nausea, vomiting. No diarrhea. No constipation. No bloody or tarry stools.. No loss of appetite. Genitourinary: No dysuria, increased frequency, urgency. No urinary retention. Musculoskeletal: No myalgias. No muscle weakness, no gait dysfunction, no frequent falls. Reports back pain. Reports neck pain. Integumentary: No wounds, no lesions. No rash or pruritus. No unusual bruising. No change in hair or nails. Neurologic: No aphasia. No facial droop. No change in mentation. No head injury. No headache. No paralysis. No paresthesia. Mild confusion. Psychiatric: No depression. No anxiety. No mood swings. Endocrine: No abnormal blood sugars. No weight change. No excessive sweating or thirst. No cold intolerance. SOCIAL HISTORY Patient was a smoker one pack per day for greater than 40 years and quit in 1984. She denies. Any alcohol use, marijuana use or street drug use. She is a . FAMILY HISTORY Mother at age 86 from heart issues. Father at age 76 from a stroke. Patient 4 brothers and at least Wednesday from lung cancer. She has 2 sisters and one has coronary artery disease. Patient has 2 sons with no major medical problems. PHYSICAL EXAMINATION Gen: This is an 84-year-old -Algerian female. She is resting in bed and appears to be comfortable. HEENT: Head is atraumatic, normocephalic. Pupils equal, round. Sclerae is anicte haley. NECK: Supple. No JVD. No lymphadenopathy. No thyromegaly. LUNGS: Clear to auscultation. No wheezes or rhonchi. No intercostal retractions. HEART: Regular rate and rhythm. No murmur. ABDOMEN: Soft. Bowel sounds are present. No masses. No tenderness. EXTREMITIES: No pedal edema. No calf tenderness. NEUROLOGICAL: Patient is awake, alert and oriented x3. Cranial nerves 2 through 12 are grossly intact. ASSESSMENT AND PLAN 1. Lumbar pain following fall, no fractures or acute findings on imaging. Consult with orthopedic spine. TLSO brace has been ordered. Continue Decadron 4 mg IV every 8 hours, [place] 5/325 mg 1 every 4 hours as needed, baclofen 5 mg 3 times daily as needed. 2. COPD, stable without exacerbation. Continue DuoNeb treatments as needed. 3. Hyperlipidemia. Continue pravastatin 40 mg at bedtime. 4. Peripheral vascular disease, possible coronary artery disease. Continue Imdur 30 mg at bedtime, aspirin 325 mg daily, statin. 5. Anemia of chronic illness. Continue ferrous sulfate. 6. History of DVT, no suspected recurrence. 7. History of breast cancer status post lumpectomy and radiation. Continue Arimidex 1 mg at bedtime. 8. Gastroesophageal reflux disease with history of GI bleed from AVM. Continue Protonix 40 mg daily. 9. Recurrent depression. Continue Prozac 10 mg daily. 10. DVT prophylaxis. Heparin subcu. Patient will be admitted to the hospital for a minimum of 2 night stay. Discharge plan: Home on Sunday. Impression and plan of care have been directed as dictated by the signing physician. Danna Canada nurse practitioner acting as scribe for signing physician. 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,, emphysema; hypoglycemia, hx breast cancer, History of Any Multi-Drug Resistant Organisms: None Reported Past Surgical History: Back Surgery, Breast Surgery, Cholecystectomy, Heart Catheterization Additional Past Surgical History / Comment(s): L SUBCLAVIAN ARTERY BYPASS, Rt CAROTID ENDARTECTOMY, rt breast lumpectomy Past Anesthesia/Blood Transfusion Reactions: No Reported Reaction Additional Past Anesthesia/Blood Transfusion Reaction / Comment(s): PT RECIEVED BLOOD TRANSFUSION Past Psychological History: Anxiety Smoking Status: Former smoker Past Alcohol Use History: None Reported Additional Past Alcohol Use History / Comment(s): 1 PPD STARTED SMOKING AT AGE 15 QUIT IN 1984 SMOKED 1PPD Past Drug Use History: None Reported - Past Family History Brother(s) Family Medical History: Cancer Sister(s) Family Medical History: Cancer Mother Family Medical History: Coronary Artery Disease (CAD) Additional Family Medical History / Comment(s): enlarged heart Father Family Medical History: Coronary Artery Disease (CAD), CVA/TIA Medications and Allergies Home Medications Medication Instructions Recorded Confirmed Type Isosorbide Mononitrate ER [Imdur] 30 mg PO HS 08/04/13 12/11/19 History Pravastatin Sodium [Pravachol] 40 mg PO HS 08/04/13 12/11/19 History Anastrozole [Arimidex] 1 mg PO HS 02/22/16 12/11/19 History Ascorbic Acid [Vitamin C with Stacy 500 mg PO HS 02/22/16 12/11/19 History Hips] Ferrous Sulfate [Iron (65 MG 325 mg PO DAILY 02/05/17 12/11/19 History Elemental)] Cholecalciferol [Vitamin D3] 1,000 unit PO DAILY 04/11/18 12/11/19 History Pantoprazole [Protonix] 40 mg PO DAILY 04/11/18 12/11/19 History Aspirin 325 mg PO DAILY 12/11/19 12/11/19 History FLUoxetine HCL [PROzac] 10 mg PO DAILY 12/11/19 12/11/19 History Allergies Allergy/AdvReac Type Severity Reaction Status Date / Time No Known Allergies Allergy Verified 12/11/19 23:45 Physical Exam Vitals: Vital Signs Temp Pulse Pulse Resp BP BP Pulse Ox 12/12/19 07:00 98.0 F 74 16 153/50 93 L 12/12/19 03:00 16 12/12/19 02:55 98.6 F 61 14 186/49 99 12/12/19 02:38 98.1 F 58 L 18 142/71 93 L 12/12/19 01:05 81 18 141/72 91 L 12/12/19 00:43 50 L 18 145/68 95 12/12/19 00:20 51 L 12/12/19 00:11 50 L 12/11/19 23:00 52 L 18 205/78 95 12/11/19 20:30 181/81 12/11/19 20:25 98.1 F 55 L 18 95 Intake and Output 12/11/19 12/12/19 12/12/19 22:59 06:59 14:59 Other: Voiding Method Bedside Commode # Voids 1 # Bowel Movements 1 Weight 60.328 kg 60.328 kg Results CBC & Chem 7: 12/12/19 01:06 12/12/19 01:06 Labs: Abnormal Lab Results - Last 24 Hours (Table) 12/12/19 12/12/19 12/12/19 Range/Units 01:06 01:06 01:06 Hct 50.4 H (34.0-46.0) % MCHC 30.3 L (31.0-37.0) g/dL Potassium 3.3 L (3.5-5.1) mmol/L Plasma Lactic Acid Jaylon 2.8 H* (0.7-2.0) mmol/L Calcium 10.3 H (8.4-10.2) mg/dL AST 41 H (14-36) U/L Creatine Kinase 229 H (30-135) U/L 12/12/19 Range/Units 05:23 Hct (34.0-46.0) % MCHC (31.0-37.0) g/dL Potassium (3.5-5.1) mmol/L Plasma Lactic Acid Jaylon <0.5 L (0.7-2.0) mmol/L Calcium (8.4-10.2) mg/dL AST (14-36) U/L Creatine Kinase (30-135) U/L Thrombosis Risk Factor Assmnt - Choose All That Apply Each Risk Factor Represents 3 Points: Age 75 years or older, History of DVT/PE Thrombosis Risk Factor Assessment Total Risk Factor Score: 6 Thrombosis Risk Factor Assessment Level: High Risk
--- NOTE | 2019-12-12 13:18 | P.CNOR ---
History of Present Illness - [facility] Consult date: 12/12/19 Requesting physician: Tacos Saha Consult reason: low back pain, other (Status post fall) History of present illness: Patient is a very pleasant 84-year-old female who is seen and examined at the bedside after consultation placed for further evaluation for low back pain. Patient states she has fallen twice over the past week or so. She states her back pain has been so severe her legs will give out on her and she will fall to the ground. She fell on her buttocks. She's had some increased back pain since that time. She also states at bedside she has generalized aching pains in her bones. She is not currently describing specific lower extremity weakness or radiculopathy pattern. She does live at home alone and does have her sisters check on her. She sustained a fall yesterday and was unable to get up. She was able to contact 911 and she was brought to the emergency department for further evaluation. Multiple imaging modalities were taken at that time including x- rays of the pelvis, sacrum, coccyx, and lumbar spine. She was found to have degenerative changes without evidence of acute fracture. She does have a history of previous anterior lumbar decompression and fusion with interbody fusion which she states was performed over by [place], [place] in 2004. Patient is seen at the bedside with Dr. Saha present. He states the patient was on Solu-Medrol and he would transition her over to dexamethasone. He is also planning he prescribed baclofen. He is obtaining a CRP for further evaluation for possible polymyalgia rheumatica. He states he may also plan to contact pain management to discuss the possibility of an injection. Patient's pain is being controlled with Seymour 5 mg/325 mg as prescribed. Patient's past medical history includes heart failure, COPD, history of CVA/TIA, history of DVT, hyperlipidemia, hypertension, and cancer. 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,, emphysema; hypoglycemia, hx breast cancer, History of Any Multi-Drug Resistant Organisms: None Reported Past Surgical History: Back Surgery, Breast Surgery, Cholecystectomy, Heart Catheterization Additional Past Surgical History / Comment(s): L SUBCLAVIAN ARTERY BYPASS, Rt CAROTID ENDARTECTOMY, rt breast lumpectomy Past Anesthesia/Blood Transfusion Reactions: No Reported Reaction Additional Past Anesthesia/Blood Transfusion Reaction / Comm: PT RECIEVED BLOOD TRANSFUSION Past Psychological History: Anxiety Smoking Status: Former smoker Past Alcohol Use History: None Reported Additional Past Alcohol Use History / Comment(s): 1 PPD STARTED SMOKING AT AGE 15 QUIT IN 1984 SMOKED 1PPD Past Drug Use History: None Reported - Past Family History Brother(s) Family Medical History: Cancer Sister(s) Family Medical History: Cancer Mother Family Medical History: Coronary Artery Disease (CAD) Additional Family Medical History / Comment(s): enlarged heart Father Family Medical History: Coronary Artery Disease (CAD), CVA/TIA Medications and Allergies Home Medications Medication Instructions Recorded Confirmed Type Isosorbide Mononitrate ER [Imdur] 30 mg PO HS 08/04/13 12/11/19 History Pravastatin Sodium [Pravachol] 40 mg PO HS 08/04/13 12/11/19 History Anastrozole [Arimidex] 1 mg PO HS 02/22/16 12/11/19 History Ascorbic Acid [Vitamin C with Stacy 500 mg PO HS 02/22/16 12/11/19 History Hips] Ferrous Sulfate [Iron (65 MG 325 mg PO DAILY 02/05/17 12/11/19 History Elemental)] Cholecalciferol [Vitamin D3] 1,000 unit PO DAILY 04/11/18 12/11/19 History Pantoprazole [Protonix] 40 mg PO DAILY 04/11/18 12/11/19 History Aspirin 325 mg PO DAILY 12/11/19 12/11/19 History FLUoxetine HCL [PROzac] 10 mg PO DAILY 12/11/19 12/11/19 History Allergies Allergy/AdvReac Type Severity Reaction Status Date / Time No Known Allergies Allergy Verified 12/11/19 23:45 Physical Examination Physical exam: Patient is awake, alert, and oriented 3 Vital signs stable Good chest excursion with deep inspiration and expiration Examination of lumbar spine reveals skin is intact with no abrasions, lacerations, or bruises; no erythema, purulence or signs of infection No pain with palpation along the midline of the lumbar spine Pain on palpation over the si joints bilaterally Dorsiflexion, plantarflexion, and extensor hallucis longus positive sustained bilaterally Lower extremity strength positive sustained throughout range of motion bilaterally Patient is able to lift legs off the bed independently but has some difficulty while doing so No lower extremity hyperreflexia bilaterally Negative Lasegue's test bilaterally No signs or symptoms of DVT; no calf pain No pain with internal and external rotation of the hips bilaterally Neurovascularly intact Results Pertinent studies: X-rays of the lumbar spine, sacrum, coccyx, and pelvis taken on 12/11/2019: T11- L5 degenerative disc disease; L5-S1 anterior fusion with hardware and interbody fusion remaining in good alignment and position; no evidence of fracture in the sacrum or coccyx; evidence of clips from previous cholecystectomy - Labs Labs: Abnormal Lab Results - Last 24 Hours (Table) 12/12/19 12/12/19 12/12/19 Range/Units 01:06 01:06 01:06 Hct 50.4 H (34.0-46.0) % MCHC 30.3 L (31.0-37.0) g/dL Potassium 3.3 L (3.5-5.1) mmol/L Plasma Lactic Acid Jaylon 2.8 H* (0.7-2.0) mmol/L Calcium 10.3 H (8.4-10.2) mg/dL AST 41 H (14-36) U/L Creatine Kinase 229 H (30-135) U/L 12/12/19 Range/Units 05:23 Hct (34.0-46.0) % MCHC (31.0-37.0) g/dL Potassium (3.5-5.1) mmol/L Plasma Lactic Acid Jaylon <0.5 L (0.7-2.0) mmol/L Calcium (8.4-10.2) mg/dL AST (14-36) U/L Creatine Kinase (30-135) U/L H & H 12/12/19 Range/Units 01:06 Hgb 15.2 (11.4-16.0) gm/dL Hct 50.4 H (34.0-46.0) % Coagulation 12/12/19 Range/Units 02:00 INR 1.0 (<1.2) Result Diagrams: 12/12/19 01:06 12/12/19 01:06 Assessment and Plan Assessment: Assessment: Intractable low back pain status post fall Thoracolumbar degenerative disc disease History of L5-S1 anterior fusion with hardware intact Possible polymyalgia rheumatica COPD Hyperlipidemia Hypertension History of cancer History of CVA/TIA History of DVT Heart failure (1) Intractable low back pain Current Visit: Yes Status: Acute Code(s): M54.5 - LOW BACK PAIN SNOMED Code(s): 87773568838089299 (2) Fusion of lumbosacral spine Current Visit: Yes Status: Acute Code(s): M43.27 - FUSION OF SPINE, LUMBOSACRAL REGION SNOMED Code(s): 99115296 (3) DDD (degenerative disc disease), thoracolumbar Current Visit: Yes Status: Acute Code(s): M51.35 - OTHER INTERVERTEBRAL DISC DEGENERATION, THORACOLUMBAR REGION SNOMED Code(s): 59707661 (4) History of cancer Current Visit: Yes Status: Acute Code(s): Z85.9 - PERSONAL HISTORY OF MALIGNANT NEOPLASM, UNSPECIFIED SNOMED Code(s): 403273764 (5) Heart failure Current Visit: Yes Status: Acute Code(s): I50.9 - HEART FAILURE, UNSPECIFIED SNOMED Code(s): 24301194 (6) Hyperlipidemia Current Visit: Yes Status: Acute Code(s): E78.5 - HYPERLIPIDEMIA, UNSPECIFIED SNOMED Code(s): 94559119 (7) Status post fall Current Visit: Yes Status: Acute Code(s): Z91.81 - HISTORY OF FALLING SNOMED Code(s): 919101772 (8) COPD (chronic obstructive pulmonary disease) Current Visit: Yes Status: Acute Code(s): J44.9 - CHRONIC OBSTRUCTIVE PULMONARY DISEASE, UNSPECIFIED SNOMED Code(s): 10358437 (9) History of DVT (deep vein thrombosis) Current Visit: No Status: Acute Code(s): Z86.718 - PERSONAL HISTORY OF OTHER VENOUS THROMBOSIS AND EMBOLISM SNOMED Code(s): 354740914 (10) History of TIA (transient ischemic attack) Current Visit: No Status: Acute Code(s): Z86.73 - PRSNL HX OF TIA (TIA), AND CEREB INFRC W/O RESID DEFICITS SNOMED Code(s): 900505113 (11) HTN (hypertension) Current Visit: No Status: Chronic Code(s): I10 - ESSENTIAL (PRIMARY) HYPERTENSION SNOMED Code(s): 91344189 Plan: Plan: 1. After reviewing of imaging, physical examination of the patient, further discussion with the patient and further discussion with Dr. Tacos Saha, we will plan to continue conservative treatment at this time. Patient has sustained 2 falls over the past week due to her intractable low back pain and feeling that her legs will give out on her to her pain. Reviewing the imaging does not show evidence of compression fracture deformities or other fracture within the lumbar spine, sacrum, coccyx, or pelvis. She does have significant degenerative changes in her lumbar spine with a history of previous fusion at L5-S1 with retained hardware. We discussed she could benefit from bracing. At this time a prescription is written and provided a case management for an Exos LSO brace. Once this brace has been delivered and fitted appropriately, patient may wear this brace during increased activities and mobilization. Brace does not have to be worn while at rest. At this time, we will plan to exhaust conservative treatment options. We're not currently planning to obtain further imaging modalities. Patient is not currently complaining of any specific lower extremity weakness or radiculopathy bilaterally. She states her recent falls have been due to the intractable low back pain. Patient has been discussed in detail with Dr. Saha who plan for medication changes as well as further evaluation for possible polymyalgia rheumatica. He may also plan for consultation with pain management. At this time, patient will be cleared for discharge from an orthopedic spine standpoint, following discharge, patient may follow-up with Finn Dutta PA-C or Dr. Vasquez Nunes at [facility] in approximately 2-3 weeks for further evaluation. 2. Patient will continue be seeing exam by Dr. Tacos Saha for further treatment and evaluation 3. Continue pain control with medications as prescribed including Seymour 5 mg/325 mg Time with Patient: Greater than 30 (Including obtaining history, physical examination, reviewing of imaging, and dictation.)
[2019-12-12 14:42] VITALS: BMI 22.8
[2019-12-12] MEDS: ISOSORBIDE MONONITRATE ER 30 MG TAB.ER.24H PO SCH (20:12)
[2019-12-12] MEDS: ASCORBIC ACID 500 MG TAB PO SCH (20:12)
[2019-12-12] MEDS: ANASTROZOLE 1 MG TAB PO SCH (20:12)
[2019-12-12] MEDS: PRAVASTATIN SODIUM 40 MG TAB PO SCH (20:12)
[2019-12-13 03:08] LABS: Appearance,Urine Clear (Clear); Bilirubin,Urine Negative (Negative); Blood,Urine Negative (Negative); Color,Urine Colorless; Glucose,Urine (UA) Negative (Negative); Ketones,Urine Negative (Negative); Leukocyte Esterase,Urine Negative (Negative); Nitrite,Urine Negative (Negative); PH, Urine 6.5 (5.0-8.0); Protein,Urine Negative (Negative); Specific Gravity,Urine 1.004 (1.001-1.035); Urobilinogen,Urine <2.0 mg/dL (<2.0)
[2019-12-13] MEDS: HEPARIN SODIUM,PORCINE 5,000 UNIT/ML 1 ML VIAL SQ SCH ×2 (09:51→21:42)
[2019-12-13] MEDS: PANTOPRAZOLE 40 MG TABLET PO SCH (09:51)
[2019-12-13] MEDS: FLUoxetine HCL 10 MG CAP PO SCH (09:51)
[2019-12-13] MEDS: DEXAMETHASONE SOD PHOSPHATE 4 MG/ML 1 ML VIAL IV SCH ×3 (09:51→23:06)
[2019-12-13] MEDS: CHOLECALCIFEROL 1,000 UNIT TAB PO SCH (09:51)
[2019-12-13] MEDS: FERROUS SULFATE 325 MG TAB PO SCH (09:51)
[2019-12-13] MEDS: ASPIRIN 325 MG TAB PO SCH (09:51)
[2019-12-13] MEDS: HYDROcodone/APAP 5-325MG 1 EACH TAB PO PRN (10:06)
--- NOTE | 2019-12-13 10:07 | P.PN ---
Subjective Progress Note Date: 12/13/19 Principal diagnosis: Severe back pain post fall, COPD, PAD, anemia, hypertension and breast cancer, debility This is an 84-year-old -Banglades[place] female patient of Dr. Dr. Saha with past medical history of COPD, 2 strokes, carotid artery disease status post right endarterectomy, history of left lower extremity DVT in 2017, history of breast cancer status post lumpectomy and radiation therapy in 2015, hypertension, hyperlipidemia, bleeding gastric AVM and 2017, chronic back pain with previous fusion of the lumbar spine initially at [facility] and then at [facility], remote history of tobacco use. Patient presented to [facility] emergency center after a second fall in which she was unable to get up from the floor. She had low back pain and coccyx pain. No loss of consciousness but complains of pain also to the bilateral knees. Complains of generalized weakness. No significant injury is noted to the knees. She was found to be afebrile, heart rate 55, blood pressure 181/81 and pulse ox 95% on room air. Lumbar x-ray revealed moderate multilevel spondylotic changes. No fracture. CAT scan of the brain revealed cerebral atrophy. 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 Old 2 cm cortical infarcts. Aspect left cerebellar hemisphere unchanged. No acute intracranial abnormality. CAT scan of the cervical spine revealed spondylotic changes to the cervical spine. No fracture. No significant change. Sacral x-ray was negative. Pelvic x-ray showed no acute abnormality. Chest x-ray reveals prominence of central pulmonary vasculature. Minimal subsegmental atelectasis of the lung left base. Osteopenia. Clinical correlation advised to exclude heart failure. CBC is unremarkable. Potassium 3.3 and has been replaced. Otherwise electrolytes renal function within normal limits. AST 41, CK 229 and repeat 109. ProBNP 154. Initial lactic acid 2.8 with repeated less than 0.5. Patient was started on IV Decadron and placed on the observation status and consult obtained with orthopedic spine.They have ordered TLSO brace and major case detective is making arrangements. PT and OT requested. Objective - Vital Signs Vital signs: Vital Signs Temp 98.1 F 12/13/19 08:00 Pulse 56 L 12/13/19 08:00 Resp 17 12/13/19 08:00 BP 192/74 12/13/19 08:00 Pulse Ox 92 L 12/13/19 08:00 Intake & Output 12/12/19 12/13/19 12/13/19 18:59 06:59 18:59 Intake Total 1040 Balance 1040 Weight 60.328 kg Intake: Intake, IV Titration 1040 Amount Sodium Chloride 0.9% 1, 1040 000 ml @ 130 mls/hr IV . Q7H42M STA Rx#:[id number] Other: Voiding Method Bedside Commode # Voids 1 1 - Exam REVIEW OF SYSTEMS Constitutional: No fever, no chills, no night sweats. No weight change. Reports weakness, Reports fatigue. No daytime sleepiness. EENT: No headache. No blurred vision or double vision, no loss of vision. No loss of Hearing, no ringing in the ears, no dizziness. No nasal drainage or congestion. No epistaxis. No sore throat. Lungs: No shortness of breath, cough, no sputum production. No wheezing. Cardiovascular: No chest pain, no lower extremity edema. No palpitations. No paroxysmal nocturnal dyspnea. No orthopnea. No lightheadedness or dizziness. No syncopal episodes. Abdominal: No abdominal pain. No nausea, vomiting. No diarrhea. No constipation. No bloody or tarry stools.. No loss of appetite. Genitourinary: No dysuria, increased frequency, urgency. No urinary retention. Musculoskeletal: No myalgias. No muscle weakness, no gait dysfunction, no frequent falls. Reports back pain. Reports neck pain. Integumentary: No wounds, no lesions. No rash or pruritus. No unusual bruising. No change in hair or nails. Neurologic: No aphasia. No facial droop. No change in mentation. No head injury. No headache. No paralysis. No paresthesia. Mild confusion. Psychiatric: No depression. No anxiety. No mood swings. Endocrine: No abnormal blood sugars. No weight change. No excessive sweating or thirst. No cold intolerance. SOCIAL HISTORY Patient was a smoker one pack per day for greater than 40 years and quit in 1984. She denies. Any alcohol use, marijuana use or street drug use. She is a . FAMILY HISTORY Mother at age 86 from heart issues. Father at age 76 from a stroke. Patient 4 brothers and at least Wednesday from lung cancer. She has 2 sisters and one has coronary artery disease. Patient has 2 sons with no major medical problems. PHYSICAL EXAMINATION Gen: This is an 84-year-old -Bangl[place] female. She is resting in bed and appears to be comfortable. HEENT: Head is atraumatic, normocephalic. Pupils equal, round. Sclerae is anicteric. NECK: Supple. No JVD. No lymphadenopathy. No thyromegaly. LUNGS: Clear to auscultation. No wheezes or rhonchi. No intercostal retractions. HEART: Regular rate and rhythm. No murmur. ABDOMEN: Soft. Bowel sounds are present. No masses. No tenderness. EXTREMITIES: No pedal edema. No calf tenderness. NEUROLOGICAL: Patient is awake, alert and oriented x3. Cranial nerves 2 through 12 are grossly intact. - Labs CBC & Chem 7: 12/12/19 01:06 12/12/19 01:06 Assessment and Plan Plan: 1. Lumbar pain following fall, no fractures or acute findings on imaging. Consult with orthopedic spine. TLSO brace has been ordered. Continue Decadron 4 mg IV every 8 hours, [place] 5/325 mg 1 every 4 hours as needed, baclofen 5 mg 3 times daily as needed. 2. COPD, stable without exacerbation. Continue DuoNeb treatments as needed. 3. Hyperlipidemia. Continue pravastatin 40 mg at bedtime. 4. Peripheral vascular disease, possible coronary artery disease. Continue Imdur 30 mg at bedtime, aspirin 325 mg daily, statin. 5. Anemia of chronic illness. Continue ferrous sulfate. 6. History of DVT, no suspected recurrence. 7. History of breast cancer status post lumpectomy and radiation. Continue Arimidex 1 mg at bedtime. 8. Gastroesophageal reflux disease with history of GI bleed from AVM. Continue Protonix 40 mg daily. 9. Recurrent depression. Continue Prozac 10 mg daily. 10. DVT prophylaxis. Heparin subcu. Patient will have brace, she did PT she is more risk for fall physical therapy are advising for subacute rehab will contact medical social consultant to continue PTOT continue to control patient's pain look for safety we'll continue Decadron for now possible going to rehab on Sunday.
[2019-12-13] MEDS: IPRATROPIUM-ALBUTEROL 3 ML NEB INHALATION PRN (11:36)
[2019-12-13] MEDS: ANASTROZOLE 1 MG TAB PO SCH (21:42)
[2019-12-13] MEDS: ISOSORBIDE MONONITRATE ER 30 MG TAB.ER.24H PO SCH (21:42)
[2019-12-13] MEDS: ASCORBIC ACID 500 MG TAB PO SCH (21:42)
[2019-12-13] MEDS: PRAVASTATIN SODIUM 40 MG TAB PO SCH (21:42)
[2019-12-13] MEDS ORDERED: amLODIPine 5 MG TAB PO STA (21:55)
[2019-12-13] MEDS ORDERED: cloNIDine HCL 0.1 MG TAB PO PRN (22:00)
[2019-12-14] MEDS: HYDROcodone/APAP 5-325MG 1 EACH TAB PO PRN ×3 (04:13→21:00)
[2019-12-14 06:13] LABS: Basophils % (A) 0 %; Eosinophils % (A) 0 %; HCT 39.7 % (34.0-46.0); HGB 12.4 gm/dL (11.4-16.0); Lymphocytes # (A) 0.6 k/uL (1.0-4.8); Lymphocytes % (A) 7 %; MCH 29.1 pg (25.0-35.0); MCHC 31.4 g/dL (31.0-37.0); MCV 92.9 fL (80.0-100.0); Mean Platelet Volume 6.4; Monocytes # (A) 0.2 k/uL (0-1.0); Monocytes % (A) 3 %; Neutrophils # (A) 6.7 k/uL (1.3-7.7); Neutrophils % (A) 89 %; Platelet Count 173 k/uL (150-450); RBC 4.27 m/uL (3.80-5.40); RDW 14.4 % (11.5-15.5); WBC 7.6 k/uL (3.8-10.6)
[2019-12-14] MEDS: FLUoxetine HCL 10 MG CAP PO SCH (09:09)
[2019-12-14] MEDS: PANTOPRAZOLE 40 MG TABLET PO SCH (09:09)
[2019-12-14] MEDS: DEXAMETHASONE SOD PHOSPHATE 4 MG/ML 1 ML VIAL IV SCH ×3 (09:09→22:40)
[2019-12-14] MEDS: HEPARIN SODIUM,PORCINE 5,000 UNIT/ML 1 ML VIAL SQ SCH ×2 (09:09→20:59)
[2019-12-14] MEDS: CHOLECALCIFEROL 1,000 UNIT TAB PO SCH (09:09)
[2019-12-14] MEDS: FERROUS SULFATE 325 MG TAB PO SCH (09:09)
[2019-12-14] MEDS: ASPIRIN 325 MG TAB PO SCH (09:09)
[2019-12-14] MEDS: amLODIPine 5 MG TAB PO SCH (09:11)
[2019-12-14 09:29] LABS: African American GFR (CKD) 92.2 (60.0-200.0); Albumin 3.6 g/dL (3.80-4.90); Anion Gap 5.3 mmol/L (4.00-12.00); BUN/Creat Ratio 22.86 Ratio (12.00-20.00); Calcium 9.3 mg/dL (8.7-10.3); Carbon Dioxide 29.7 mmol/L (21.6-31.8); Globulin 1.8 g/dL (1.6-3.3); Non-African American GFR(CKD) 79.6 (60.0-200.0); Total Bilirubin 0.5 mg/dL (0.2-1.2); Total Protein 5.4 g/dL (6.2-8.2)
--- NOTE | 2019-12-14 10:42 | P.PN ---
Subjective Progress Note Date: 12/14/19 Principal diagnosis: Severe back pain post fall, COPD, PAD, anemia, hypertension and breast cancer, debility, significant hypertension and bradycardia. This is an 84-year-old -G[place] female patient of Dr. Dr. Saha with past medical history of COPD, 2 strokes, carotid artery disease status post right endarterectomy, history of left lower extremity DVT in 2017, history of breast cancer status post lumpectomy and radiation therapy in 2014, hypertension, hyperlipidemia, bleeding gastric AVM and 2017, chronic back pain with previous fusion of the lumbar spine initially at [facility] and then at [facility], remote history of tobacco use. Patient presented to [facility] emergency center after a second fall in which she was unable to get up from the floor. She had low back pain and coccyx pain. No loss of consciousness but complains of pain also to the bilateral knees. Complains of generalized weakness. No significant injury is noted to the knees. She was found to be afebrile, heart rate 55, blood pressure 181/81 and pulse ox 95% on room air. Lumbar x-ray revealed moderate multilevel spondylotic changes. No fracture. CAT scan of the brain revealed cerebral atrophy. 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 Old 2 cm cortical infarcts. Aspect left cerebellar hemisphere unchanged. No acute intracranial abnormality. CAT scan of the cervical spine revealed spondylotic changes to the cervical spine. No fracture. No significant change. Sacral x-ray was negative. Pelvic x-ray showed no acute abnormality. Chest x-ray reveals prominence of central pulmonary vasculature. Minimal subsegmental atelectasis of the lung left base. Osteopenia. Clinical correlation advised to exclude heart failure. CBC is unremarkable. Potassium 3.3 and has been replaced. Otherwise electrolytes yudelka l function within normal limits. AST 41, CK 229 and repeat 109. ProBNP 154. Initial lactic acid 2.8 with repeated less than 0.5. Patient was started on IV Decadron and placed on the observation status and consult obtained with orthopedic spine.They have ordered TLSO brace and pillowcase turner is making arrangements. PT and OT requested. 12/13: Patient developed significant bradycardia overnight after 1 dose of clonidine was used for hypertension. Patient will be continue on current management for now watch for any further bradycardia patient be on residential monitor continue PTOT. Objective - Vital Signs Vital signs: Vital Signs Temp 98.1 F 10/18/20 07:32 Pulse 47 L 12/14/19 10:13 Resp 16 12/14/19 07:32 BP 142/53 12/14/19 07:32 Pulse Ox 93 L 12/14/19 07:32 Intake & Output 12/13/19 12/14/19 12/14/19 18:59 06:59 18:59 Other: Voiding Method Bedside Commode # Voids 1 1 - Exam REVIEW OF SYSTEMS Constitutional: No fever, no chills, no night sweats. No weight change. Reports weakness, Reports fatigue. No daytime sleepiness. EENT: No headache. No blurred vision or double vision, no loss of vision. No loss of Hearing, no ringing in the ears, no dizziness. No nasal drainage or congestion. No epistaxis. No sore throat. Lungs: No shortness of breath, cough, no sputum production. No wheezing. Cardiovascular: No chest pain, no lower extremity edema. No palpitations. No paroxysmal nocturnal dyspnea. No orthopnea. No lightheadedness or dizziness. No syncopal episodes. Abdominal: No abdominal pain. No nausea, vomiting. No diarrhea. No constipation. No bloody or tarry stools.. No loss of appetite. Genitourinary: No dysuria, increased frequency, urgency. No urinary retention. Musculoskeletal: No myalgias. No muscle weakness, no gait dysfunction, no frequent falls. Reports back pain. Reports neck pain. Integumentary: No wounds, no lesions. No rash or pruritus. No unusual bruising. No change in hair or nails. Neurologic: No aphasia. No facial droop. No change in mentation. No head injury. No headache. No paralysis. No paresthesia. Mild confusion. Psychiatric: No depression. No anxiety. No mood swings. Endocrine: No abnormal blood sugars. No weight change. No excessive sweating or thirst. No cold intolerance. SOCIAL HISTORY Patient was a smoker one pack per day for greater than 40 years and quit in 1984. She denies. Any alcohol use, marijuana use or street drug use. She is a . FAMILY HISTORY Mother at age 86 from heart issues. Father at age 76 from a stroke. Patient 4 brothers and at least Wednesday from lung cancer. She has 2 sisters and one has coronary artery disease. Patient has 2 sons with no major medical problems. PHYSICAL EXAMINATION Gen: This is an 84-year-old -G[place] female. She is resting in bed and appears to be comfortable. HEENT: Head is atraumatic, normocephalic. Pupils equal, round. Sclerae is anicteric. NECK: Supple. No JVD. No lymphadenopathy. No thyromegaly. LUNGS: Clear to auscultation. No wheezes or rhonchi. No intercostal retrac tions. HEART: Regular rate and rhythm. No murmur. ABDOMEN: Soft. Bowel sounds are present. No masses. No tenderness. EXTREMITIES: No pedal edema. No calf tenderness. NEUROLOGICAL: Patient is awake, alert and oriented x3. Cranial nerves 2 through 12 are grossly intact. - Labs CBC & Chem 7: 12/14/19 05:25 12/14/19 05:25 Labs: Abnormal Lab Results - Last 24 Hours (Table) 12/14/19 12/14/19 Range/Units 05:25 05:25 Lymphocytes # 0.6 L (1.0-4.8) k/uL BUN/Creatinine Ratio 22.86 H (12.00-20.00) Ratio Glucose 132 H (70-110) mg/dL Total Protein 5.4 L (6.2-8.2) g/dL Albumin 3.60 L (3.80-4.90) g/dL Assessment and Plan Plan: 1. Lumbar pain following fall, no fractures or acute findings on imaging. Consult with orthopedic spine. TLSO brace has been ordered. Continue Decadron 4 mg IV every 8 hours, [place] 5/325 mg 1 every 4 hours as needed, baclofen 5 mg 3 times daily as needed. 2. COPD, stable without exacerbation. Continue DuoNeb treatments as needed. 3 hypertension: Start the patient on her vascular 5 mg a day. 4. Bradycardia: Could be reaction to the clonidine was used last night will continue to watch patient on residential monitor and cardiology consultation if needed along with echocardiogram and prepare to see if patient need a pacemaker. 5. Anemia of chronic illness. Continue ferrous sulfate. 6. History of DVT, no suspected recurrence. 7. History of breast cancer status post lumpectomy and radiation. Continue Arimidex 1 mg at bedtime. 8. Gastroesophageal reflux disease with history of GI bleed from AVM. Continue Protonix 40 mg daily. 9. Recurrent depression. Continue Prozac 10 mg daily. 10. Hyperlipidemia. Continue pravastatin 40 mg at bedtime. 11 Peripheral vascular disease, possible coronary artery disease. Continue Imdur 30 mg at bedtime, aspirin 325 mg daily, statin. 12. DVT prophylaxis. Heparin subcu. Patient will have brace, she did PT she is more risk for fall physical therapy a re advising for subacute rehab will contact pediatric social worker to continue PTOT continue to control patient's pain look for safety we'll continue Decadron for now possible going to rehab on Sunday.
--- NOTE | 2019-12-14 13:22 | P.CRDCN ---
History of Present Illness Consult date: 12/14/19 History of present illness: His is a 84-year-old -[place] female with history of COPD, previous strokes, carotid disease, hypertension, hyperlipidemia and chronic back pain who is admitted to the hospital following a fall. Patient has been having significant back problems. Patient had previous fusion of lumbar spine both at [facility] and [facility]. Patient also has some issues with the right shoulder. She walks with a walker. Patient seemed to be unsteady and apparently fell at home. There is no history of loss of cons ciousness. Since admission patient blood pressure has been high. Patient was initiated on clonidine. Patient apparently developed some bradycardia with heart rates in the 40s. Average heart rate seems to be in the 50s. She is not having dizziness. We will discontinue clonidine and initiate her hydralazine for blood pressure control. She is also on Norvasc. May also check her for any postural changes. Denies any chest pain at this time. Review of Systems As per the chart 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,, emphysema; hypoglycemia, hx breast cancer, History of Any Multi-Drug Resistant Organisms: None Reported Past Surgical History: Back Surgery, Breast Surgery, Cholecystectomy, Heart Catheterization Additional Past Surgical History / Comment(s): L SUBCLAVIAN ARTERY BYPASS, Rt CAROTID ENDARTECTOMY, rt breast lumpectomy Past Anesthesia/Blood Transfusion Reactions: No Reported Reaction Additional Past Anesthesia/Blood Transfusion Reaction / Comment(s): PT RECIEVED BLOOD TRANSFUSION Past Psychological History: Anxiety Smoking Status: Former smoker Past Alcohol Use History: None Reported Additional Past Alcohol Use History / Comment(s): 1 PPD STARTED SMOKING AT AGE 15 QUIT IN 1984 SMOKED 1PPD Past Drug Use History: None Reported - Past Family History Brother(s) Family Medical History: Cancer Sister(s) Family Medical History: Cancer Mother Family Medical History: Coronary Artery Disease (CAD) Additional Family Medical History / Comment(s): enlarged heart Father Family Medical History: Coronary Artery Disease (CAD), CVA/TIA Medications and Allergies Home Medications Medication Instructions Recorded Confirmed Type Isosorbide Mononitrate ER [Imdur] 30 mg PO HS 08/04/13 12/11/19 History Pravastatin Sodium [Pravachol] 40 mg PO HS 08/04/13 12/11/19 History Anastrozole [Arimidex] 1 mg PO HS 02/22/16 12/11/19 History Ascorbic Acid [Vitamin C with Stacy 500 mg PO HS 02/22/16 12/11/19 History Hips] Ferrous Sulfate [Iron (65 MG 325 mg PO DAILY 02/05/17 12/11/19 History Elemental)] Cholecalciferol [Vitamin D3] 1,000 unit PO DAILY 04/11/18 12/11/19 History Pantoprazole [Protonix] 40 mg PO DAILY 04/11/18 12/11/19 History Aspirin 325 mg PO DAILY 12/11/19 12/11/19 History FLUoxetine HCL [PROzac] 10 mg PO DAILY 12/11/19 12/11/19 History Allergies Allergy/AdvReac Type Severity Reaction Status Date / Time No Known Allergies Allergy Verified 12/11/19 23:45 Physical Exam Vitals: Vital Signs Temp Pulse Pulse Resp BP Pulse Ox 12/14/19 10:13 47 L 12/14/19 07:32 98.1 F 41 L 16 142/53 93 L 12/14/19 06:02 138/56 12/14/19 04:09 208/85 12/14/19 00:55 98.2 F 90 14 196/71 95 12/13/19 21:50 220/71 12/13/19 19:55 97.7 F 51 L 15 194/63 95 12/13/19 15:00 97.6 F 67 16 168/69 92 L Intake and Output 12/13/19 12/14/19 12/14/19 22:59 06:59 14:59 Other: Voiding Method Bedside Commode Bedside Commode # Voids 2 1 GENERAL EXAM: Patient is alert and oriented and doesn't appear to be in any acute distress HEENT: Normocephalic. Normal reaction of pupils, equal size, normal range of extraocular motion. No erythema or exudates in the throat. NECK: No masses, no nuchal rigidity. CHEST: No chest wall deformity. LUNGS: Equal air entry with no crackles or wheeze. HEART: S1 and S2 normal with Systolic murmur heardalong left sternal border ABDOMEN:Soft SKIN: No rashes CENTRAL NERVOUS SYSTEM: No focal deficits. EXTREMITIES: No severe edema Results 12/14/19 05:25 12/14/19 05:25 Cardiac Enzymes 12/14/19 Range/Units 05:25 AST 23 (13-35) U/L CBC 12/14/19 Range/Units 05:25 WBC 7.6 (3.8-10.6) k/uL RBC 4.27 (3.80-5.40) m/uL Hgb 12.4 (11.4-16.0) gm/dL Hct 39.7 (34.0-46.0) % Plt Count 173 (150-450) k/uL Comprehensive Metabolic Panel 12/14/19 Range/Units 05:25 Sodium 139 (135-145) mmol/L Potassium 4.0 (3.5-5.5) mmol/L Chloride 104 (96-109) mmol/L Carbon Dioxide 29.7 (21.6-31.8) mmol/L BUN 16.0 (9.0-27.0) mg/dL Creatinine 0.7 (0.6-1.5) mg/dL Glucose 132 H (70-110) mg/dL Calcium 9.3 (8.7-10.3) mg/dL AST 23 (13-35) U/L ALT 20 (8-44) U/L Alkaline Phosphatase 57 (41-126) U/L Total Protein 5.4 L (6.2-8.2) g/dL Albumin 3.60 L (3.80-4.90) g/dL Current Medications Generic Name Dose Route Start Last Admin Trade Name Freq PRN Reason Stop Dose Admin Hydrocodone Bitart/Acetaminophen 1 each 12/12/19 05:43 12/14/19 04:13 Hydrocodone/Apap 5-325mg 1 Each Tab PO 1 each Q4HR PRN Administration Pain Albuterol/Ipratropium 3 ml 12/12/19 01:33 12/13/19 11:36 Ipratropium-Albuterol 3 Ml Neb INHALATION 3 ml RT-Q4H PRN Administration Shortness Of Breath Or Wheezing Amlodipine Besylate 5 mg 12/14/19 09:00 12/14/19 09:11 Amlodipine 5 Mg Tab PO 5 mg DAILY JARETH Administration Anastrozole 1 mg 12/12/19 21:00 12/13/19 21:42 Anastrozole 1 Mg Tab PO 1 mg HS JARETH Administration Ascorbic Acid 500 mg 12/12/19 21:00 12/13/19 21:42 Ascorbic Acid 500 Mg Tab PO 500 mg HS JARETH Administration Aspirin 325 mg 12/12/19 09:00 12/14/19 09:09 Aspirin 325 Mg Tab PO 325 mg DAILY JARETH Administration Baclofen 5 mg 12/12/19 09:00 Baclofen 10 Mg Tab PO TID PRN Muscle Spasm Cholecalciferol 1,000 unit 12/12/19 09:00 12/14/19 09:09 Cholecalciferol 1,000 Unit Tab PO 1,000 unit DAILY JARETH Administration Dexamethasone Sodium Phosphate 4 mg 12/12/19 08:00 12/14/19 09:09 Dexamethasone Sod Phosphate 4 Mg/Ml 1 Ml Vial IV 4 mg Q8HR JARETH Administration Ferrous Sulfate 325 mg 12/12/19 09:00 12/14/19 09:09 Ferrous Sulfate 325 Mg Tab PO 325 mg DAILY JARETH Administration Fluoxetine HCl 10 mg 12/12/19 09:00 12/14/19 09:09 Fluoxetine Hcl 10 Mg Cap PO 10 mg DAILY JARETH Administration Heparin Sodium (Porcine) 5,000 unit 12/12/19 09:00 12/14/19 09:09 Heparin Sodium,Porcine 5,000 Unit/Ml 1 Ml Vial SQ 5,000 unit Q12HR JARETH Administration Hydralazine HCl 25 mg 12/14/19 16:00 Hydralazine Hcl 25 Mg Tab PO TID JARETH Isosorbide Mononitrate 30 mg 12/12/19 21:00 12/13/19 21:42 Isosorbide Mononitrate Er 30 Mg Tab.Er.24h PO 30 mg HS JARETH Administration Pantoprazole Sodium 40 mg 12/12/19 09:00 12/14/19 09:09 Pantoprazole 40 Mg Tablet PO 40 mg DAILY JARETH Administration Pravastatin Sodium 40 mg 12/12/19 21:00 12/13/19 21:42 Pravastatin Sodium 40 Mg Tab PO 40 mg HS JARETH Administration Intake and Output 12/13/19 12/14/19 12/14/19 22:59 06:59 14:59 Other: Voiding Method Bedside Commode Bedside Commode # Voids 2 1 12/14/19 05:25 12/14/19 05:25 EKG Interpretations (text) Sinus bradycardia Assessment and Plan (1) Bradycardia Current Visit: Yes Status: Acute Code(s): R00.1 - BRADYCARDIA, UNSPECIFIED SNOMED Code(s): 89946427 (2) COPD (chronic obstructive pulmonary disease) Current Visit: Yes Status: Acute Code(s): J44.9 - CHRONIC OBSTRUCTIVE PULMONARY DISEASE, UNSPECIFIED SNOMED Code(s): 87020962 (3) Fall Current Visit: Yes Status: Acute Code(s): W19.XXXA - UNSPECIFIED FALL, INITIAL ENCOUNTER SNOMED Code(s): 6369315 (4) History of cancer Current Visit: Yes Status: Acute Code(s): Z85.9 - PERSONAL HISTORY OF MALIGNANT NEOPLASM, UNSPECIFIED SNOMED Code(s): 999918189 (5) Essential hypertension Current Visit: Yes Status: Acute Code(s): I10 - ESSENTIAL (PRIMARY) HYPERTENSION SNOMED Code(s): 54457252 Plan: A great to discontinue Catapres. Continue Norvasc Had add hydralazine. Continue monitoring her blood pressureand also check for any postural change in blood pressure. Further recommendation depending upon the clinical course
[2019-12-14] MEDS: hydrALAZINE HCL 25 MG TAB PO SCH ×2 (17:10→21:00)
[2019-12-14] MEDS: ASCORBIC ACID 500 MG TAB PO SCH (20:59)
[2019-12-14] MEDS: ISOSORBIDE MONONITRATE ER 30 MG TAB.ER.24H PO SCH (20:59)
[2019-12-14] MEDS: PRAVASTATIN SODIUM 40 MG TAB PO SCH (21:00)
[2019-12-14] MEDS: ANASTROZOLE 1 MG TAB PO SCH (22:41)
[2019-12-15 06:21] LABS: Glucose,Whole Blood 118 mg/dL (75-99)
[2019-12-15] MEDS: INSULIN ASPART (NovoLOG) 100 UNIT/ML VIAL SQ SCH ×5 (06:21→22:30)
[2019-12-15 08:08] LABS: ALT 20 U/L (4-34); AST 31 U/L (14-36); African American GFR (CKD) >90 (>60 ml/min/1.73 sqM); Albumin 3.7 g/dL (3.5-5.0); Alkaline Phosphatase 52 U/L (38-126); Anion Gap 6 mmol/L; Blood Urea Nitrogen 28 mg/dL (7-17); Calcium 9.6 mg/dL (8.4-10.2); Carbon Dioxide 25 mmol/L (22-30); Chloride 102 mmol/L (98-107); Glucose 103 mg/dL (74-99); Non-African American GFR(CKD) 83 (>60 ml/min/1.73 sqM); Potassium 4.6 mmol/L (3.5-5.1); Sodium 133 mmol/L (137-145); Total Bilirubin 0.7 mg/dL (0.2-1.3); Total Protein 6.4 g/dL (6.3-8.2)
[2019-12-15 08:25] LABS: Basophils % (A) 0 %; Eosinophils # (A) 0.1 k/uL (0-0.7); Eosinophils % (A) 1 %; HCT 45.4 % (34.0-46.0); HGB 14.2 gm/dL (11.4-16.0); Lymphocytes # (A) 0.7 k/uL (1.0-4.8); Lymphocytes % (A) 7 %; MCH 28.6 pg (25.0-35.0); MCHC 31.2 g/dL (31.0-37.0); MCV 91.6 fL (80.0-100.0); Mean Platelet Volume 7.9; Monocytes # (A) 0.4 k/uL (0-1.0); Monocytes % (A) 4 %; Neutrophils # (A) 8.9 k/uL (1.3-7.7); Neutrophils % (A) 88 %; Platelet Count 155 k/uL (150-450); RBC 4.96 m/uL (3.80-5.40); RDW 14.4 % (11.5-15.5); WBC 10.1 k/uL (3.8-10.6)
[2019-12-15] MEDS: DEXAMETHASONE SOD PHOSPHATE 4 MG/ML 1 ML VIAL IV SCH ×2 (09:18→20:23)
[2019-12-15] MEDS: HEPARIN SODIUM,PORCINE 5,000 UNIT/ML 1 ML VIAL SQ SCH ×2 (09:18→20:23)
[2019-12-15] MEDS: CHOLECALCIFEROL 1,000 UNIT TAB PO SCH (09:19)
[2019-12-15] MEDS: amLODIPine 5 MG TAB PO SCH (09:19)
[2019-12-15] MEDS: PANTOPRAZOLE 40 MG TABLET PO SCH (09:19)
[2019-12-15] MEDS: FERROUS SULFATE 325 MG TAB PO SCH (09:19)
[2019-12-15] MEDS: ASPIRIN 325 MG TAB PO SCH (09:19)
[2019-12-15] MEDS: hydrALAZINE HCL 25 MG TAB PO SCH (09:19)
[2019-12-15] MEDS: FLUoxetine HCL 10 MG CAP PO SCH (09:19)
[2019-12-15 11:54] LABS: Glucose,Whole Blood 106 mg/dL (75-99)
--- NOTE | 2019-12-15 13:57 | P.PN ---
Subjective This is a pleasant 84-year-old -[place] female past medical history significant for COPD, peripheral vascular disease, hypertension, dyslipidemia and chronic back discomfort. She follows with Dr. Lott. She is seen and examined resting comfortably in bed in no acute distress. She denies symptoms of chest pain, shortness of breath, dizziness or palpitations. Telemetry tracings indicate sinus bradycardia. Currently telemetry shows a heart rate of 50 that is sinus. Blood pressure 151/79. Orthostatic blood pressures were checked this morning supine blood pressure was 203/71 and standing was 155/74. She was asymptomatic. Laboratory data reviewed, CBC unremarkable, sodium 133, potassium 4.6, creatinine 0.62 and TSH 0.482. GENERAL: Well-appearing, well-nourished and in no acute distress. NECK: Supple without JVD or thyromegaly. LUNGS: Breath sounds clear to auscultation bilaterally. Respiration equal and unlabored. No wheezes, rales or rhonchi. HEART: Regular rate and rhythm with systolic ejection murmur at the base, no rubs or gallops. S1 and S2 heard. EXTREMITIES: Normal range of motion, no edema. No clubbing or cyanosis. Peripheral pulses intact. ASSESSMENT Sinus bradycardia Hypertension, uncontrolled COPD Chronic back and right shoulder pain Fall secondary to above PLAN Continue to hold all rate lowering medications and monitor her on telemetry. Increase hydralazine to 50 mg TID. Decrease aspirin to 81 mg daily. Bradycardia noted is sinus and she is asymptomatic. No indications for pacemaker at this time. Nurse Practitioner note has been reviewed, I agree with a documented findings and plan of care. Patient was seen and examined. Objective - Vital Signs Vital signs: Vital Signs Temp 97.8 F 12/15/19 04:00 Pulse 44 L 12/15/19 08:00 Resp 16 12/15/19 08:00 BP 151/79 12/15/19 08:00 Pulse Ox 97 12/15/19 08:00 Intake & Output 12/14/19 12/15/19 12/15/19 18:59 06:59 18:59 Weight 59 kg Other: Voiding Method Bedside Commode # Voids 0 1 1 # Bowel Movements 1 1 - Labs CBC & Chem 7: 12/15/19 07:19 12/15/19 07:19 Labs: Abnormal Lab Results - Last 24 Hours (Table) 12/15/19 12/15/19 12/15/19 Range/Units 06:16 07:19 07:19 Neutrophils # 8.9 H (1.3-7.7) k/uL Lymphocytes # 0.7 L (1.0-4.8) k/uL Sodium 133 L (137-145) mmol/L BUN 28 H (7-17) mg/dL Glucose 103 H (74-99) mg/dL POC Glucose (mg/dL) 118 H (75-99) mg/dL
[2019-12-15] MEDS: HYDROcodone/APAP 5-325MG 1 EACH TAB PO PRN (14:39)
--- NOTE | 2019-12-15 14:51 | P.PN ---
Subjective Progress Note Date: 12/15/19 This is an 84-year-old -Spanish female patient of Dr. Dr. Saha with past medical history of COPD, 2 strokes, carotid artery disease status post right endarterectomy, history of left lower extremity DVT in 2017, history of breast cancer status post lumpectomy and radiation therapy in 2015, hyperte nsion, hyperlipidemia, bleeding gastric AVM and 2017, chronic back pain with previous fusion of the lumbar spine initially at [facility] and then at [facility], remote history of tobacco use. Patient presented to [facility] emergency center after a second fall in which she was unable to get up from the floor. She had low back pain and coccyx pain. No loss of consciousness but complains of pain also to the bilateral knees. Complains of generalized weakness. No significant injury is noted to the knees. She was found to be afebrile, heart rate 55, blood pressure 181/81 and pulse ox 95% on room air. Lumbar x-ray revealed moderate multilevel spondylotic changes. No fracture. CAT scan of the brain revealed cerebral atrophy. 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 Old 2 cm cortical infarcts. Aspect left cerebellar hemisphere unchanged. No acute intracranial abnormality. CAT scan of the cervical spine revealed spondylotic changes to the cervical spine. No fracture. No significant change. Sacral x-ray was negative. Pelvic x-ray showed no acute abnormality. Chest x-ray reveals prominence of central pulmonary vasculature. Minimal subsegmental atelectasis of the lung left base. Osteopenia. Clinical correlation advised to exclude heart failure. CBC is unremarkable. Potassium 3.3 and has been replaced. Otherwise electrolytes renal function within normal limits. AST 41, CK 229 and repeat 109. ProBNP 154. Initial lactic acid 2.8 with repeated less than 0.5. Patient was started on IV Decadron and placed on the observation status and consult obtained with orthopedic spine.They have ordered TLSO brace and case advocate is making arrangements. PT and OT requested. 12/13: Patient developed significant bradycardia overnight after 1 dose of clonidine was used for hypertension. Patient will be continue on current management for now watch for any further bradycardia patient be on quality assurance monitor chassis continue PTOT. 12/14: Patient has been followed by cardiology with recommendations continue all rate lowering medications. She is mostly running in the 80s for heart rate late this morning was running in the 40s. Blood pressure 160/75, afebrile, pulse ox 97% on room air. Hydralazine was increased by cardiology to 50 mg 3 times daily. There is no plan for pacemaker at this time. CBC is unremarkable. Sodium 133, creatinine 0.62. We will plan to monitor overnight and probably discharged tomorrow to rehab. REVIEW OF SYSTEMS Constitutional: No fever, no chills, no night sweats. No weight change. Reports weakness, Reports fatigue. EENT: No headache. No blurred vision or double vision, no loss of vision. No loss of Hearing, no ringing in the ears, no dizziness. No nasal drainage or congestion. No epistaxis. No sore throat. Lungs: No shortness of breath, cough, no sputum production. No wheezing. Cardiovascular: No chest pain, no lower extremity edema. No palpitations. No paroxysmal nocturnal dyspnea. No orthopnea. No lightheadedness or dizziness. No syncopal episodes. Abdominal: No abdominal pain. No nausea, vomiting. No diarrhea. No constipati on. No bloody or tarry stools.. No loss of appetite. Genitourinary: No dysuria, increased frequency, urgency. No urinary retention. Musculoskeletal: No myalgias. No muscle weakness, no gait dysfunction, no frequent falls. Reports back pain. Reports neck pain. Integumentary: No wounds, no lesions. No rash or pruritus. No unusual bruising. No change in hair or nails. Neurologic: No aphasia. No facial droop. No change in mentation. No head injury. No headache. No paralysis. No paresthesia. Mild confusion. Psychiatric: No depression. No anxiety. No mood swings. Endocrine: No abnormal blood sugars. No weight change. No excessive sweating or thirst. No cold intolerance. PHYSICAL EXAMINATION Gen: This is an 84-year-old -Spanish female. She is resting in bed and appears to be comfortable. HEENT: Head is atraumatic, normocephalic. Pupils equal, round. Sclerae is anicteric. NECK: Supple. No JVD. No lymphadenopathy. No thyromegaly. LUNGS: Clear to auscultation. No wheezes or rhonchi. No intercostal retractions. HEART: Regular rate and rhythm. No murmur. ABDOMEN: Soft. Bowel sounds are present. No masses. No tenderness. EXTREMITIES: No pedal edema. No calf tenderness. NEUROLOGICAL: Patient is awake, alert and oriented x3. Cranial nerves 2 through 12 are grossly intact. ASSESSMENT AND PLAN 1. Lumbar pain following fall, no fractures or acute findings on imaging. Consult with orthopedic spine. TLSO brace has been ordered. Continue Decadron 4 mg IV with frequency changed to every 12 hours, [place] 5/325 mg 1 every 4 hours as needed, baclofen 5 mg 3 times daily as needed. 2. COPD, stable without exacerbation. Continue DuoNeb treatments as needed. 3. hypertension. Hydralazine 50 mg 3 times daily. 4. Bradycardia: Could be reaction to the clonidine was used last night will continue to watch patient on quality assurance monitor chassis and cardiology consultation appreciated. No plan for pacemaker. 5. Anemia of chronic illness. Continue ferrous sulfate. 6. History of DVT, no suspected recurrence. 7. History of breast cancer status post lumpectomy and radiation. Continue Arimidex 1 mg at bedtime. 8. Gastroesophageal reflux disease with history of GI bleed from AVM. Continue Protonix 40 mg daily. 9. Recurrent depression. Continue Prozac 10 mg daily. 10. Hyperlipidemia. Continue pravastatin 40 mg at bedtime. 11 Peripheral vascular disease, possible coronary artery disease. Continue I mdur 30 mg at bedtime, aspirin 325 mg daily, statin. 12. DVT prophylaxis. Heparin subcu. Discharge plan: [facility] tomorrow Impression and plan of care have been directed as dictated by the signing physician. Danna Canada nurse practitioner acting as scribe for signing physician. Objective - Vital Signs Vital signs: Vital Signs Temp 97.8 F 12/15/19 04:00 Pulse 45 L 12/15/19 04:00 Resp 17 12/15/19 04:00 BP 203/71 12/15/19 04:00 Pulse Ox 95 12/15/19 04:00 Intake & Output 12/14/19 12/15/19 12/15/19 18:59 06:59 18:59 Weight 59 kg Other: Voiding Method Bedside Commode # Voids 0 1 1 # Bowel Movements 1 1 - Labs CBC & Chem 7: 12/15/19 07:19 12/15/19 07:19 Labs: Abnormal Lab Results - Last 24 Hours (Table) 10/18/20 10/19/20 Range/Units 05:25 06:16 BUN/Creatinine Ratio 22.86 H (12.00-20.00) Ratio Glucose 132 H (70-110) mg/dL POC Glucose (mg/dL) 118 H (75-99) mg/dL Total Protein 5.4 L (6.2-8.2) g/dL Albumin 3.60 L (3.80-4.90) g/dL
[2019-12-15] MEDS: hydrALAZINE HCL 50 MG TAB PO SCH ×2 (15:44→20:22)
[2019-12-15 16:32] LABS: Glucose,Whole Blood 147 mg/dL (75-99)
[2019-12-15] MEDS: ANASTROZOLE 1 MG TAB PO SCH (20:22)
[2019-12-15] MEDS: PRAVASTATIN SODIUM 40 MG TAB PO SCH (20:22)
[2019-12-15] MEDS: ASCORBIC ACID 500 MG TAB PO SCH (20:22)
[2019-12-15 20:34] VITALS: RESP 18
[2019-12-15 20:45] LABS: Glucose,Whole Blood 108 mg/dL (75-99)
[2019-12-16] MEDS: HYDROcodone/APAP 5-325MG 1 EACH TAB PO PRN (04:49)
[2019-12-16] MEDS: hydrALAZINE HCL 50 MG TAB PO SCH (04:49)
[2019-12-16] MEDS: amLODIPine 5 MG TAB PO SCH (04:49)
[2019-12-16 06:22] LABS: Glucose,Whole Blood 102 mg/dL (75-99)
[2019-12-16] MEDS: INSULIN ASPART (NovoLOG) 100 UNIT/ML VIAL SQ SCH ×2 (06:37→18:24)
--- NOTE | 2019-12-16 08:29 | P.DS ---
Providers Date of admission: 12/13/19 09:01 Expected date of discharge: 12/16/19 Attending physician: Kami Wen Consults: 12/12/19 05:45 Consult Physician Routine Consulting Provider: Salma Nunes Consult Reason/Comments: Back pain Do you want consulting provider notified?: Yes 12/14/19 11:05 Consult Physician Urgent Consulting Provider: Carlos Roa Consult Reason/Comments: BRADYCARDIA, HEART RATE LOW 38 BPM ON MONITOR Do you want consulting provider notified?: Yes Primary care physician: [facility] Hospital Course: This is an 84-year-old -[place] female patient of Dr. Dr. Saha with past medical history of COPD, 2 strokes, carotid artery disease status post right endarterectomy, history of left lower extremity DVT in 2017, history of br east cancer status post lumpectomy and radiation therapy in 2014, hypertension, hyperlipidemia, bleeding gastric AVM and 2017, chronic back pain with previous fusion of the lumbar spine initially at [facility] and then at [facility], remote history of tobacco use. Patient presented to [facility] emergency center after a second fall in which she was unable to get up from the floor. She had low back pain and coccyx pain. No loss of consciousness but complains of pain also to the bilateral knees. Complains of generalized weakness. No significant injury is noted to the knees. She was found to be afebrile, heart rate 55, blood pressure 181/81 and pulse ox 95% on room air. Lumbar x-ray revealed moderate multilevel spondylotic changes. No fracture. CAT scan of the brain revealed cerebral atrophy. 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 Old 2 cm cortical infarcts. Aspect left cerebellar hemisphere unchanged. No acute intracranial abnormality. CAT scan of the cervical spine revealed spondylotic changes to the cervical spine. No fracture. No significant change. Sacral x-ray was negative. Pelvic x-ray showed no acute abnormality. Chest x-ray reveals prominence of central pulmonary vasculature. Minimal subsegmental atelectasis of the lung left base. Osteopenia. Clinical correlation advised to exclude heart failure. CBC is unremarkable. Potassium 3.3 and has been replaced. Otherwise electrolytes renal function within normal limits. AST 41, CK 229 and repeat 109. ProBNP 154. Initial lactic acid 2.8 with repeated less than 0.5. Patient was started on IV Decadron and placed on the observation status and consult obtained with orthopedic spine.They have ordered TLSO brace and nurse case management is making ar rangements. PT and OT requested. 12/13: Patient developed significant bradycardia overnight after 1 dose of clonidine was used for hypertension. Patient will be continue on current management for now watch for any further bradycardia patient be on school lunch monitor continue PTOT. 12/14: Patient has been followed by cardiology with recommendations continue all rate lowering medications. She is mostly running in the 80s for heart rate late this morning was running in the 40s. Blood pressure 160/75, afebrile, pulse ox 97% on room air. Hydralazine was increased by cardiology to 50 mg 3 times daily. There is no plan for pacemaker at this time. CBC is unremarkable. Sodium 133, creatinine 0.62. We will plan to monitor overnight and probably discharged tomorrow to rehab. 12/15: Heart rate is running in the 50s. Cardiology is now planning on pacemaker but continue to monitor. The pressure this morning 178/74, pulse ox 96% on room air, afebrile. Patient denies any new complaints. We will transition her to oral steroids. Discharge plan is for [place]. Patient will be discharged in stable condition. Event monitor is being arranged by cardiology. BP medicine adjusted. ASSESSMENT AND PLAN 1. Lumbar pain following fall, no fractures or acute findings on imaging. TLSO brace. 2. COPD, stable without exacerbation. 3. hypertension. 4. Bradycardia. No plan for pacemaker. 5. Anemia of chronic illness. 6. History of DVT, no suspected recurrence. 7. History of breast cancer status post lumpectomy and radiation. 8. Gastroesophageal reflux disease with history of GI bleed from AVM. 9. Recurrent depression. 10. Hyperlipidemia. 11. Peripheral vascular disease, possible coronary artery disease. Discharge plan: [place] Impression and plan of care have been directed as dictated by the signing physician. Danna Canada nurse practitioner acting as scribe for signing physician. Patient Condition at Discharge: Good Plan - Discharge Summary Discharge Rx Participant: Yes New Discharge Prescriptions: New Aspirin 81 mg PO DAILY chew Ipratropium-Albuterol Nebulize [Duoneb 0.5 mg-3 mg/3 ml Soln] 3 ml INHALATION RT-Q4H PRN ml PRN Reason: Shortness Of Breath Or Wheezing Baclofen [Lioresal] 5 mg PO TID PRN tab PRN Reason: Muscle Spasm HYDROcodone/APAP 5-325MG [Basom 5-325] 1 each PO Q4HR PRN #18 tab PRN Reason: Pain INSULIN ASPART (NovoLOG) [NovoLOG (formulary)] 0 unit SQ ACHS vial Dexamethasone [Decadron] 4 mg PO DAILY #5 tablet hydrALAZINE HCL [Apresoline] 75 mg PO TID tab amLODIPine [Norvasc] 10 mg PO DAILY tab Continue Pravastatin Sodium [Pravachol] 40 mg PO HS Anastrozole [Arimidex] 1 mg PO HS Ascorbic Acid [Vitamin C with Stacy Hips] 500 mg PO HS Ferrous Sulfate [Iron (65 MG Elemental)] 325 mg PO DAILY Cholecalciferol [Vitamin D3 (25 Mcg = 1000 Iu)] 1,000 unit PO DAILY Pantoprazole [Protonix] 40 mg PO DAILY FLUoxetine HCL [PROzac] 10 mg PO DAILY Discontinued Isosorbide Mononitrate ER [Imdur] 30 mg PO HS Aspirin 325 mg PO DAILY Discharge Medication List Pravastatin Sodium [Pravachol] 40 mg PO HS 08/04/13 [History] Anastrozole [Arimidex] 1 mg PO HS 02/22/16 [History] Ascorbic Acid [Vitamin C with Stacy Hips] 500 mg PO HS 02/22/16 [History] Ferrous Sulfate [Iron (65 MG Elemental)] 325 mg PO DAILY 02/05/17 [History] Cholecalciferol [Vitamin D3 (25 Mcg = 1000 Iu)] 1,000 unit PO DAILY 04/11/18 [History] Pantoprazole [Protonix] 40 mg PO DAILY 04/11/18 [History] FLUoxetine HCL [PROzac] 10 mg PO DAILY 12/11/19 [History] Aspirin 81 mg PO DAILY chew 12/16/19 [Rx] Baclofen [Lioresal] 5 mg PO TID PRN tab 12/16/19 [Rx] Dexamethasone [Decadron] 4 mg PO DAILY #5 tablet 12/16/19 [Rx] HYDROcodone/APAP 5-325MG [Basom 5-325] 1 each PO Q4HR PRN #18 tab 12/16/19 [Rx] INSULIN ASPART (NovoLOG) [NovoLOG (formulary)] 0 unit SQ ACHS vial 12/16/19 [Rx] Ipratropium-Albuterol Nebulize [Duoneb 0.5 mg-3 mg/3 ml Soln] 3 ml INHALATION RT-Q4H PRN ml 12/16/19 [Rx] amLODIPine [Norvasc] 10 mg PO DAILY tab 12/16/19 [Rx] hydrALAZINE HCL [Apresoline] 75 mg PO TID tab 12/16/19 [Rx] Follow up Appointment(s)/Referral(s): Salma Nunes DO [Doctor of Osteopathic Medicine] - 2 Weeks (Patient may follow-up with Finn Dutta PA-C or Dr. Vasquez Nunes at [facility] in 2-3 weeks following discharge. ) Tacos Saha MD [Primary Care Provider] - 1-2 days Len Lott MD [STAFF PHYSICIAN] - 1 Week
[2019-12-16] MEDS: PANTOPRAZOLE 40 MG TABLET PO SCH (08:40)
[2019-12-16] MEDS: CHOLECALCIFEROL 1,000 UNIT TAB PO SCH (08:40)
[2019-12-16] MEDS: FLUoxetine HCL 10 MG CAP PO SCH (08:40)
[2019-12-16] MEDS: FERROUS SULFATE 325 MG TAB PO SCH (08:41)
[2019-12-16] MEDS: HEPARIN SODIUM,PORCINE 5,000 UNIT/ML 1 ML VIAL SQ SCH (08:41)
[2019-12-16] MEDS: DEXAMETHASONE SOD PHOSPHATE 4 MG/ML 1 ML VIAL IV SCH (08:42)
[2019-12-16] MEDS ORDERED: ASPIRIN 81 MG PO SCH (09:00)
[2019-12-16] MEDS ORDERED: amLODIPine 5 MG TAB PO STA (09:27)
[2019-12-16] MEDS: IPRATROPIUM-ALBUTEROL 3 ML NEB INHALATION PRN (11:15)
[2019-12-16 12:13] LABS: Glucose,Whole Blood 114 mg/dL (75-99)
--- NOTE | 2019-12-16 12:33 | ECHOF ---
Referral Reason:bradycardia, near syncope MEASUREMENTS -------- HEIGHT: 162.6 cm WEIGHT: 59.0 kg BP: RVIDd: 2.6 cm (< 3.3) IVSd: 1.5 cm (0.6 - 1.1) LVIDd: 3.0 cm (3.9 - 5.3) LVPWd: 1.6 cm (0.6 - 1.1) IVSs: 1.9 cm LVIDs: 1.7 cm LVPWs: 1.7 cm LAESV Index (A-L): 23.28 ml/m Ao Diam: 2.5 cm (2.0 - 3.7) AV Cusp: 1.5 cm (1.5 - 2.6) LA Diam: 2.3 cm (2.7 - 3.8) MV EXCURSION: 15.293 mm (> 18.000) MV EF SLOPE: 57 mm/s (70 - 150) EPSS: 0.2 cm MV E Noam: 0.68 m/s MV DecT: 296 ms MV A Noam: 0.83 m/s MV E/A Ratio: 0.82 RAP: 5.00 mmHg RVSP: 12.80 mmHg FINDINGS -------- This was a technically good study. The left ventricular size is normal. There is moderate concentric left ventricular hypertrophy. O verall left ventricular systolic function is normal with, an EF between 55 - 60 %. Normal LAP Grade 1 Diastolic Dysfunction. The right ventricle is normal in size. The left atrial size is normal. Normal LA size by volume 22+/-6 ml/m2. The right atrial size is normal. Aortic valve is trileaflet and is mildly thickened. The mitral valve is normal. There is trace mitral regurgitation. The tricuspid valve appears structurally normal. Mild tricuspid regurgitation present. Right vent ricular systolic pressure is normal at < 35 mmHg. Trace/mild (physiologic) pulmonic regurgitation. The aortic root size is normal. Normal inferior vena cava with normal inspiratory collapse consistent with estimated right atrial pre ssure of 5 mmHg. There is no pericardial effusion. CONCLUSIONS -------- 1. The left ventricular size is normal. 2. There is moderate concentric left ventricular hypertrophy. 3. Overall left ventricular systolic function is normal with, an EF between 55 - 60 %. 4. Normal LAP Grade 1 Diastolic Dysfunction. 5. Aortic valve is trileaflet and is mildly thickened. 6. There is trace mitral regurgitation. 7. Mild tricuspid regurgitation present. 8. Trace/mild (physiologic) pulmonic regurgitation. 9. There is no pericardial effusion. COOPERATIVE MANAGER: May Vale RDCS
--- NOTE | 2019-12-16 12:46 | P.PN ---
Subjective This is a pleasant 84-year-old -[place] female past medical history significant for COPD, peripheral vascular disease, hypertension, dyslipidemia and chronic back discomfort. She follows with Dr. Lott. She is seen and examined resting comfortably in bed in no acute distress. She denies symptoms of chest pain, shortness of breath, dizziness or palpitations. Telemetry tracings indicate sinus and sinus mechanism with no significant iraj- arrhythmias. Blood pressure continues to be elevated 163/71 with heart rate of 54. GENERAL: Well-appearing, well-nourished and in no acute distress. NECK: Supple without JVD or thyromegaly. LUNGS: Breath sounds clear to auscultation bilaterally. Respiration equal and unlabored. No wheezes, rales or rhonchi. HEART: Regular rate and rhythm with systolic ejection murmur at the base, no rubs or gallops. S1 and S2 heard. EXTREMITIES: Normal range of motion, no edema. No clubbing or cyanosis. Peripheral pulses intact. ASSESSMENT Sinus bradycardia Hypertension, uncontrolled COPD Chronic back and right shoulder pain Fall secondary to above PLAN Recommend increasing amlodipine to 10 mg daily, give additional dose of 5 mg now. Follow up in the office with Dr. Lott in 1-2 weeks and outpatient event monitor will be applied at that time. Nurse Practitioner note has been reviewed, I agree with a documented findings and plan of care. Patient was seen and examined. Objective - Vital Signs Vital signs: Vital Signs Temp 96.9 F L 12/16/19 08:00 Pulse 92 12/16/19 11:32 Resp 18 12/16/19 08:00 BP 163/71 12/16/19 08:00 Pulse Ox 96 12/16/19 08:00 Intake & Output 12/15/19 12/16/19 12/16/19 18:59 06:59 18:59 Intake Total 680 100 Balance 680 100 Weight 60.1 kg Intake: Oral 680 100 Other: Voiding Method Toilet Toilet # Voids 3 1 # Bowel Movements 1 1 - Labs CBC & Chem 7: 12/15/19 07:19 12/15/19 07:19 Labs: Abnormal Lab Results - Last 24 Hours (Table) 12/15/19 12/15/19 12/16/19 Range/Units 16:31 20:43 06:18 POC Glucose (mg/dL) 147 H 108 H 102 H (75-99) mg/dL 12/16/19 Range/Units 12:02 POC Glucose (mg/dL) 114 H (75-99) mg/dL
[2019-12-16 15:58] VITALS: BP 152/70; PULSE 83; TEMP 96.3
[2019-12-16] MEDS ORDERED: hydrALAZINE HCL 50 MG TAB PO SCH (16:00)
[2019-12-17] MEDS ORDERED: amLODIPine 10 MG TAB PO SCH (09:00)
--- NOTE | 2019-12-17 09:18 | CDI ---
Documentation Clarification Form Date: 12/17/19 From: Yudith Minor Phone: If you have a question about this query, please contact Veronica Rosa, Dental Surgeon at [phone] between 8am and 5pm. Admit Date: 12/11/19 Discharge Date:12/16/19 Patient Name: Kate Medrano Visit Number: [id number] ATTENTION: The Clinical Documentation Specialists (CDI) and [facility] Coding Staff appreciate your assistance in clarifying documentation. Please respond to the clarification below the line at the bottom and electronically sign. The CDI & [facility] Coding staff will review the response and follow-up if needed. Please note: Queries are made part of the Legal Health Record. If you have any questions, please contact the author of this message via ITS. Dear Dr. Perry The patient presented with the following: fall with, low back pain and coccyx pain. You documented uncontrolled hypertension in your 12/14 & 12-15 progress notes History/Risk Factors: Hypertension, emphysema, history of lumbar arthrodesis, DDD thoracolumbar, chronic back pain Clinical Indicators: Elevated blood pressure Vital Signs: T. 98.1, P. 55, R. 18, BP 181/81 Blood pressures: 12/11/19 - 181/81, 205/78; 12/12/19 - 141/72, 142/71, 186/49, 153/50, 172/82 153/69; 12/13/19 - 175/81, 192/74, 168/69, 194/63, 220/71; 12/14/19 - 196/71, 208/85, 138/56, 142/53, 137/47, 141/59, 131/74 Treatment: Imdur 30 mg once daily, initiated on clonidine causing bradycardia, changed to hydralazine 50 mg tid and amlodipine 10 mg daily In your professional opinion, can you please clarify the uncontrolled hypertension? Emergency Urgency Crisis Other, please specify Unable to determine Urgency MTDD
--- NOTE | 2019-12-17 09:31 | CDI ---
Documentation Clarification Form Date: 12/17/19 From: Yudith Minor Phone: If you have a question about this query, please contact Veronica Rosa, Library Clerical Assistant at [phone] between 8am and 5pm. Admit Date: 12/11/19 Discharge Date:12/16/19 Patient Name: Kate Medrano Visit Number: [id number] ATTENTION: The Clinical Documentation Specialists (CDI) and [facility] Coding Staff appreciate your assistance in clarifying documentation. Please respond to the clarification below the line at the bottom and electronically sign. The CDI & [facility] Coding staff will review the response and follow-up if needed. Please note: Queries are made part of the Legal Health Record. If you have any questions, please contact the author of this message via ITS. Dear Dr. Saha The patient presented with the following: Fall with low back pain, dehydration. Dr. Nunes documented evaluate possible polymyalgia rheumatica History/Risk Factors: Chronic back pain, thoracolumbar degenerative disc disease, chronic right shoulder pain, chronic neck pain, history of L5 - S1 fusion, osteopenia Clinical Indicators: Shoulder pain, neck pain, knee pain Lab findings: C-reactive protein was recommended by Dr. Nunes but never tested Vital Signs: T. 98.1, P. 55, R. 18, BP 181/81 Treatment: Vitamin D3 initiated In your professional opinion, can you please clarify if polymyalgia rheumatica was? xx Ruled In Ruled Out Other, please specify Unable to determine MTDD
== END 2019-12-16 16:30 | DRG 552 ==
LOC: EC 20:23 → 4SSUR 12-12 01:23 → OBSVTOIN 12-13 09:01 → 3SCARD 12-14 15:04
PROVIDERS: ADMIT Family Medicine; ATTEND Family Medicine
DX: M54.5 Low back pain (principal); F33.9 Major depressive disorder, recurrent, unspecified; I69.354 Hemiplegia and hemiparesis following cerebral infarction affecting left non-dominant side; D63.8 Anemia in other chronic diseases classified elsewhere; I11.0 Hypertensive heart disease with heart failure; I50.9 Heart failure, unspecified; M35.3 Polymyalgia rheumatica; I73.9 Peripheral vascular disease, unspecified; J43.9 Emphysema, unspecified; E78.5 Hyperlipidemia, unspecified; I16.0 Hypertensive urgency; E86.0 Dehydration; F41.9 Anxiety disorder, unspecified; G89.29 Other chronic pain; K21.9 Gastro-esophageal reflux disease without esophagitis; M51.35 Other intervertebral disc degeneration, thoracolumbar region; M53.3 Sacrococcygeal disorders, not elsewhere classified; Z20.828 Contact with and (suspected) exposure to other viral communicable diseases; M85.80 Other specified disorders of bone density and structure, unspecified site; R29.6 Repeated falls; M25.511 Pain in right shoulder; R00.1 Bradycardia, unspecified; R01.1 Cardiac murmur, unspecified; R53.81 Other malaise; M25.562 Pain in left knee; M25.561 Pain in right knee; M19.90 Unspecified osteoarthritis, unspecified site; Z79.811 Long term (current) use of aromatase inhibitors; Z79.82 Long term (current) use of aspirin; Z79.899 Other long term (current) drug therapy; Z85.3 Personal history of malignant neoplasm of breast; Z86.718 Personal history of other venous thrombosis and embolism; Z91.81 History of falling; Z92.3 Personal history of irradiation; Z98.1 Arthrodesis status; Z87.891 Personal history of nicotine dependence; Z90.49 Acquired absence of other specified parts of digestive tract; Z87.19 Personal history of other diseases of the digestive system; Z98.890 Other specified postprocedural states; Z87.01 Personal history of pneumonia (recurrent); Z80.1 Family history of malignant neoplasm of trachea, bronchus and lung; Z82.3 Family history of stroke; Z82.49 Family history of ischemic heart disease and other diseases of the circulatory system; W18.30XA Fall on same level, unspecified, initial encounter; T46.5X5A Adverse effect of other antihypertensive drugs, initial encounter; Y92.239 Unspecified place in hospital as the place of occurrence of the external cause; Y92.009 Unspecified place in unspecified non-institutional (private) residence as the place of occurrence of the external cause
CPT/HCPCS: 36415; 70450; 71046; 72100; 72125; 72170; 72220; 80053; 81003; 82550; 83605; 83735; 83880; 84100; 84443; 84484; 85025; 85610; 85730; 87635; 93005; 93306; 94640; 96360; 96361; 99285

== ENCOUNTER → 2020-11-22 | Outpatient (CLI) | payer MEDICARE, BC ==
--- NOTE | 2020-11-22 15:06 | US ---
EXAMINATION TYPE: US carotid duplex BILAT DATE OF EXAM: 11/22/2020 COMPARISON: Previous exams elsewhere per patient. CLINICAL HISTORY: I65.23 Bilateral carotid stenosis. Right endarterectomy. EXAM MEASUREMENTS: RIGHT: Peak Systolic Velocity (PSV) cm/sec ----- Right CCA: 137.2 ----- Right ICA: 139.2 ----- Right ECA: 333.8 ICA/CCA ratio: 1.0 RIGHT: End Diastole cm/sec ----- Right CCA: 11.0 ----- Right ICA: 18.4 ----- Right ECA: 20.9 LEFT: Peak Systolic Velocity (PSV) cm/sec ----- Left CCA: 122.0 ----- Left ICA: 182.6 ----- Left ECA: 189.3 ICA/CCA ratio: 1.5 LEFT: End Diastole cm/sec ----- Left CCA: 11.6 ----- Left ICA: 38.6 ----- Left ECA: 10.9 VERTEBRALS (direction of flow): Right Vertebral: Antegrade Left Vertebral: Antegrade Rhythm: Normal Increased velocities in bilateral ICA. Increased velocities in bilateral ECA the right greater than t he left. Bilateral intimal thickening. Noteable plaque in the left bulb/ICA IMPRESSION: 1. Elevated velocity of the internal carotid arteries bilaterally compatible with narrowing between 50 and 69%. Correlate with patient's symptoms. 2. Note is made of severe stenosis of greater than 70% within the right external carotid artery. Criteria for Assigning % of Stenosis / Diameter reduction (Estimation based on the indirect measurements of the internal carotid artery velocities (ICA PSV). 1. Normal (no stenosis)=ICA PSV < 125 cm/s: ratio < 2.0: ICA EDV<40 cm/s. 2. Less than 50% stenosis=ICA PSV < 125 cm/s: ratio < 2.0: ICA EDV<40 cm/s. 3. 50 to 69% stenosis=ICA PSV of 125 to 230 cm/s: ration 2.0 ? 4.0: ICA EDV 40-100 cm/s. 4. Greater than 70% stenosis to near occlusion= ICA PSV > 230 cm/s: ratio > 4.0: ICA EDV > 100 cm/s. 5. Near occlusion= ICA PSV velocities may be low or undetectable: variable ratio and ICA EDV. 6. Total occlusion=unable to detect flow.
== END | disposition home or self-care (01) ==
LOC: RADUSWWP 13:44
PROVIDERS: ATTEND Surgery Vascular Surgery
DX: I65.23 Occlusion and stenosis of bilateral carotid arteries (principal)
CPT/HCPCS: 93880

== ENCOUNTER → 2021-06-14 | Outpatient (CLI) | payer MEDICARE, BC ==
--- NOTE | 2021-06-14 16:25 | BD ---
EXAMINATION TYPE: Axial Bone Density DATE OF EXAM: 06/14/2021 COMPARISON: NONE CLINICAL HISTORY: 86 year old Female. ICD-10 CODE: Z79.890 post menopausal C50.211 Height: 65 Weight: 135.0 FRAX RISK QUESTIONS: Alcohol (3 or more units per day): no Family History (Parent hip fracture): no Glucocorticoids (More than 3mos): no (Ex: prednisone, prednisolone, methylprednisolone, dexamethasone, and hydrocortisone). History of Fracture in Adulthood: no Secondary Osteoporosis: 1. Type 1 Diabetes: no 2. Hyperthyroidism: no 3. Menopause before 45: no 4. Malnutrition: no 5. Chronic liver disease: no Rheumatoid Arthritis: no Current Tobacco Use: no RISK FACTORS HISTORY OF: Surgery to Spine/Hip(right/left)/Wrist (right/left): lumbar spine When: long time ago Family History of Osteoporosis: no Active: no Diet low in dairy products/other sources of calcium: no Postmenopausal woman: yes MEDICATIONS: Osteoporosis Medications: prolia How Long: unsure Additional Medications: Additional History: EXAM MEASUREMENTS: Bone mineral densitometry was performed using the [employer] System. Bone mineral density about the R hip (g/cm2): 0.740 Bone mineral density about the L hip (g/cm2): 0.614 T Score values are as follows: -----R Neck: -2.1 -----L Neck: -3.5 -----R Total: -1.5 -----L Total: -2.0 Bone mineral density : baseline Bone mineral density about the R Wrist (g/cm2): 0.614 T Score values are as follows: -----Dist. R+U: 0.0 -----Prox. R+U: -0.6 -----Radius total: -1.0 Bone mineral density : baseline FRAX%s: The graph provided illustrates a 12.8% chance for a major osteoporotic fx and a 5.5% chance f or the hips probability for fx in 10 years time. IMPRESSION: Osteopenia NOTE: T-SCORE=SD OF THE YOUNG ADULT MEAN.
== END | disposition home or self-care (01) ==
LOC: RADBDWWP 15:44
PROVIDERS: ATTEND Internal Medicine Hematology & Oncology
DX: M81.8 Other osteoporosis without current pathological fracture (principal)
CPT/HCPCS: 77080

== ENCOUNTER → 2021-10-18 | Outpatient (CLI) | payer MEDICARE, BC | END | disposition home or self-care (01) | LOC: LABWHC1 16:17 | PROVIDERS: ATTEND Internal Medicine Hematology & Oncology | DX: Z53.9 Procedure and treatment not carried out, unspecified reason (principal) ==

== ENCOUNTER 2022-05-14 16:38 | Inpatient (IN) | payer MEDICARE, BC ==
--- NOTE | 2022-05-14 17:03 | ED ---
Weakness HPI - General Chief complaint: Weakness Stated complaint: weakness Time Seen by Provider: 05/14/22 16:39 Source: patient, EMS Mode of arrival: EMS Limitations: no limitations - History of Present Illness Initial comments: 87-year-old female past medical history of congestive heart failure, COPD, CVA who presents to the emergency department for generalized weakness. EMS was called by the patient's son. She was having difficulties ambulate in on her own and he was concerned for urinary tract infection. Patient recently hospitalized for weakness and considered rehab. They found that she had an aortic aneurysm and started on metoprolol 12.5 twice daily. She did start taking the medications. She does have home care. EMS found the patient to have an extremely low heart rate in the 30s. Patient has no complaints herself. No chest pain. Mild shortness of breath. No abdominal pain. States she's been eating drinking, pooping and peeing. No other alleviating, precipitating or modifying factors - Related Data Home Medications Medication Instructions Recorded Confirmed Pravastatin Sodium [Pravachol] 40 mg PO HS 08/04/13 05/14/22 Ascorbic Acid [Vitamin C with Stacy 500 mg PO HS 02/22/16 05/14/22 Hips] Ferrous Sulfate [Iron (65 MG 325 mg PO DAILY 02/05/17 05/14/22 Elemental)] Cholecalciferol [Vitamin D3 (25 1,000 unit PO DAILY 04/11/18 05/14/22 Mcg = 1000 Iu)] Pantoprazole [Protonix] 40 mg PO DAILY 04/11/18 05/14/22 Albuterol Inhaler [Ventolin Hfa 2 puff INHALATION RT-Q6H PRN 04/29/22 05/14/22 Inhaler] Apixaban [Eliquis] 2.5 mg PO BID 04/29/22 05/14/22 DULoxetine HCL [Cymbalta] 30 mg PO DAILY 04/29/22 05/14/22 Denosumab [Prolia] 60 mg SQ Q180D 04/29/22 05/14/22 Furosemide [Lasix] 20 mg PO DAILY 04/29/22 05/14/22 Isosorbide Mononitrate ER [Imdur] 30 mg PO DAILY 04/29/22 05/14/22 Latanoprost [Latanoprost 0.005%] 1 drop BOTH EYES HS 04/29/22 05/14/22 Melatonin 1 mg PO HS 04/29/22 05/14/22 Previous Rx's Medication Instructions Recorded Aspirin 81 mg PO DAILY 30 Days #30 tab 05/17/22 Allergies Allergy/AdvReac Type Severity Reaction Status Date / Time No Known Allergies Allergy Verified 05/14/22 18:49 Review of Systems ROS Statement: Those systems with pertinent positive or pertinent negative responses have been documented in the HPI. ROS Other: All systems not noted in ROS Statement are negative. 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,, emphysema; hypoglycemia, hx breast cancer, History of Any Multi-Drug Resistant Organisms: None Reported Past Surgical History: Back Surgery, Breast Surgery, Cholecystectomy, Heart Catheterization Additional Past Surgical History / Comment(s): L SUBCLAVIAN ARTERY BYPASS, Rt CA ROTID ENDARTECTOMY, rt breast lumpectomy Past Anesthesia/Blood Transfusion Reactions: No Reported Reaction Additional Past Anesthesia/Blood Transfusion Reaction / Comment(s): PT RECIEVED BLOOD TRANSFUSION Past Psychological History: Anxiety Smoking Status: Former smoker Past Alcohol Use History: None Reported Past Drug Use History: None Reported - Past Family History Brother(s) Family Medical History: Cancer Sister(s) Family Medical History: Cancer Mother Family Medical History: Coronary Artery Disease (CAD) Additional Family Medical History / Comment(s): enlarged heart Father Family Medical History: Coronary Artery Disease (CAD), CVA/TIA General Exam Limitations: no limitations General appearance: alert, in no apparent distress Head exam: Present: atraumatic, normocephalic, normal inspection Eye exam: Present: normal appearance, PERRL, EOMI. Absent: scleral icterus, conjunctival injection, periorbital swelling ENT exam: Present: normal exam, mucous membranes moist Neck exam: Present: normal inspection. Absent: tenderness, meningismus, lymphadenopathy Respiratory exam: Present: normal lung sounds bilaterally. Absent: respiratory distress, wheezes, rales, rhonchi, stridor Cardiovascular Exam: Present: normal rhythm, bradycardia, normal heart sounds. Absent: systolic murmur, diastolic murmur, rubs, gallop, clicks GI/Abdominal exam: Present: soft, normal bowel sounds. Absent: distended, tenderness, guarding, rebound, rigid Extremities exam: Present: normal inspection, full ROM, normal capillary refill. Absent: tenderness, pedal edema, joint swelling, calf tenderness Back exam: Present: normal inspection Neurological exam: Present: alert, oriented X3, CN II-XII intact Psychiatric exam: Present: normal affect, normal mood Skin exam: Present: warm, dry, intact, normal color. Absent: rash Course Vital Signs 05/14/22 05/14/22 05/14/22 16:44 19:06 19:20 Temperature 98 F 98.4 F Pulse Rate 47 L 53 L 79 Respiratory 16 16 16 Rate Blood Pressure 142/63 168/74 140/76 O2 Sat by Pulse 96 95 97 Oximetry EKG Findings - EKG Comments: EKG Findings:: EKG demonstrates sinus bradycardia with rate of 45. NM interval 221. QRS 66. Qtc 400. Inverted T wave [address]VL[address] No acute [address] segment elevation. No signs of high degree heart block. Medical Decision Making - Medical Decision Making Was pt. sent in by a medical professional or institution (, PA, PROTECTIVE SERVICES SOCIAL WORKER, urgent care, hospital, or intermediate...) When possible be specific @ -No Did you speak to anyone other than the patient for history (EMS, parent, family, police, friend...)? What history was obtained from this source @ -son Did you review nursing and triage notes (agree or disagree)? Why? @ -I reviewed and agree with nursing and triage notes Were old charts reviewed (outside hosp., previous admission, EMS record, old EKG, old radiological studies, urgent care reports/EKG's, intermediate records)? Report findings @ -Reviewed recent hospitalization with discharge summary Differential Diagnosis (chest pain, altered mental status, abdominal pain women, abdominal pain men, vaginal bleeding, weakness, fever, dyspnea, syncope, headache, dizziness, GI bleed, back pain, seizure, CVA, palpatations, mental health, musculoskeletal)? @ -bradycardia, heart block, uti, pna, covid EKG interpreted by me (3pts min.). @ -yes X-rays interpreted by me (1pt min.). @ -None done CT interpreted by me (1pt min.). @ -yes U/S interpreted by me (1pt. min.). @ -None done What testing was considered but not performed or refused? (CT, X-rays, U/S, labs)? Why? @ -None What meds were considered but not given or refused? Why? @ -None Did you discuss the management of the patient with other professionals (ofe beyer i.e. , PA, PROTECTIVE SERVICES SOCIAL WORKER, lab, RT, psych nurse, social psychologist, full roll inspector, teacher, motor equipment commanding officer, case packer)? Give summary @ -admitting physician Was smoking cessation discussed for >3mins.? @ -No Was critical care preformed (if so, how long)? @ -No Were there social determinants of health that impacted care today? How? (Homelessness, low income, unemployed, alcoholism, drug addiction, transportation, low edu. Level, literacy, decrease access to med. care, long term, rehab)? @ -No Was there de-escalation of care discussed even if they declined (Discuss DNR or withdrawal of care, Hospice)? DNR status @ -No What co-morbidities impacted this encounter? (DM, HTN, Smoking, COPD, CAD, Cancer, CVA, ARF, Chemo, Hep., AIDS, mental health diagnosis, sleep apnea, morbid obesity)? @ -CVA, memory impairment Was patient admitted / discharged? Hospital course, mention meds given and route, prescriptions, significant lab abnormalities, going to OR and other pertinent info. @ -Upon arrival patient was placed into room 17. A thorough history and physical exam was performed. Patient is hooked to continuous pulse ox and cardiac monitoring. 12-lead EKG is performed. She does have a bradycardic rhythm with a heart rate as low as 38. There were trace studies are conducted and reviewed. Patient will be admitted on a telemetry monitor. Metoprolol will be discontinued. Patient was agreeable to this. Spoke with Dr. Ramon who is agreeable to admit the patient Undiagnosed new problem with uncertain prognosis? @ -yes Drug Therapy requiring intensive monitoring for toxicity (Heparin, Nitro, Insulin, Cardizem)? @ -No Were any procedures done? @ -No Diagnosis/symptom? @ -presyncope, acute bradycardia, medication side effect Acute, or Chronic, or Acute on Chronic? @ -acute Uncomplicated (without systemic symptoms) or Complicated (systemic symptoms)? @ -complicated Side effects of treatment? @ -No Exacerbation, Progression, or Severe Exacerbation? @ -No Poses a threat to life or bodily function? How? (Chest pain, [place], [place], pneumonia, PE, COPD, DKA, ARF, appy, cholecystitis, CVA, Diverticulitis, Homicidal, Suicidal, threat to staff... and all critical care pts) @ -yes - Lab Data Result diagrams: 05/15/22 05:22 05/15/22 05:22 Lab Results 05/14/22 05/14/22 05/14/22 Range/Units 17:09 17:09 17:09 WBC 8.2 (3.8-10.6) k/uL RBC 4.66 (3.80-5.40) m/uL Hgb 13.7 (11.4-16.0) gm/dL Hct 42.7 (34.0-46.0) % MCV 91.7 (80.0-100.0) fL MCH 29.3 (25.0-35.0) pg MCHC 32.0 (31.0-37.0) g/dL RDW 14.9 (11.5-15.5) % Plt Count 229 (150-450) k/uL MPV 7.2 Immature Gran % (Auto) % Absolute Nucleated RBC (0.00-0.00) X 10*3/uL Neutrophils % 67 % Lymphocytes % 22 % Monocytes % 7 % Eosinophils % 1 % Basophils % 1 % Immature Gran # (0.00-0.04) X 10*3/uL Neutrophils # 5.5 (1.3-7.7) k/uL Lymphocytes # 1.8 (1.0-4.8) k/uL Monocytes # 0.5 (0-1.0) k/uL Eosinophils # 0.1 (0-0.7) k/uL Basophils # 0.1 (0-0.2) k/uL NRBC/100 WBC Diff (0.0-0.0) /100 WBCS Hypochromasia Slight PT 11.1 (9.0-12.0) sec INR 1.1 (<1.2) APTT 24.4 (22.0-30.0) sec Sodium 138 (137-145) mmol/L Potassium 4.4 (3.5-5.1) mmol/L Chloride 101 (98-107) mmol/L Carbon Dioxide 28 (22-30) mmol/L Anion Gap 9 mmol/L BUN 17 (7-17) mg/dL Creatinine 0.78 (0.52-1.04) mg/dL Est GFR (CKD-EPI)AfAm 79 (>60 ml/min/1.73 sqM) Est GFR (CKD-EPI)NonAf 69 (>60 ml/min/1.73 sqM) BUN/Creatinine Ratio (12.00-20.00) Ratio Glucose 121 H (74-99) mg/dL Estimated Ave Glu mg/dL Hemoglobin A1c (0.0-6.0) % Plasma Lactic Acid Jaylon (0.7-2.0) mmol/L Calcium 8.8 (8.4-10.2) mg/dL Magnesium 2.2 (1.6-2.3) mg/dL Total Bilirubin 0.4 (0.2-1.3) mg/dL AST 27 (14-36) U/L ALT 18 (4-34) U/L Alkaline Phosphatase 53 (38-126) U/L Troponin I (0.000-0.034) ng/mL Total Protein 6.5 (6.3-8.2) g/dL Albumin 3.8 (3.5-5.0) g/dL Vitamin B12 (200.0-944.0) pg/mL Folate (4.40-31.00) ng/mL TSH 1.470 (0.465-4.680) mIU/L Urine Color Urine Appearance (Clear) Urine pH (5.0-8.0) Ur Specific Buckner (1.001-1.035) Urine Protein (Negative) Urine Glucose (UA) (Negative) Urine Ketones (Negative) Urine Blood (Negative) Urine Nitrite (Negative) Urine Bilirubin (Negative) Urine Urobilinogen (<2.0) mg/dL Ur Leukocyte Esterase (Negative) 05/14/22 05/14/22 05/14/22 Range/Units 17:09 17:09 17:09 WBC (3.8-10.6) k/uL RBC (3.80-5.40) m/uL Hgb (11.4-16.0) gm/dL Hct (34.0-46.0) % MCV (80.0-100.0) fL MCH (25.0-35.0) pg MCHC (31.0-37.0) g/dL RDW (11.5-15.5) % Plt Count (150-450) k/uL MPV Immature Gran % (Auto) % Absolute Nucleated RBC (0.00-0.00) X 10*3/uL Neutrophils % % Lymphocytes % % Monocytes % % Eosinophils % % Basophils % % Immature Gran # (0.00-0.04) X 10*3/uL Neutrophils # (1.3-7.7) k/uL Lymphocytes # (1.0-4.8) k/uL Monocytes # (0-1.0) k/uL Eosinophils # (0-0.7) k/uL Basophils # (0-0.2) k/uL NRBC/100 WBC Diff (0.0-0.0) /100 WBCS Hypochromasia PT (9.0-12.0) sec INR (<1.2) APTT (22.0-30.0) sec Sodium (137-145) mmol/L Potassium (3.5-5.1) mmol/L Chloride (98-107) mmol/L Carbon Dioxide (22-30) mmol/L Anion Gap mmol/L BUN (7-17) mg/dL Creatinine (0.52-1.04) mg/dL Est GFR (CKD-EPI)AfAm (>60 ml/min/1.73 sqM) Est GFR (CKD-EPI)NonAf (>60 ml/min/1.73 sqM) BUN/Creatinine Ratio (12.00-20.00) Ratio Glucose (74-99) mg/dL Estimated Ave Glu mg/dL Hemoglobin A1c (0.0-6.0) % Plasma Lactic Acid Jaylon 1.4 (0.7-2.0) mmol/L Calcium (8.4-10.2) mg/dL Magnesium (1.6-2.3) mg/dL Total Bilirubin (0.2-1.3) mg/dL AST (14-36) U/L ALT (4-34) U/L Alkaline Phosphatase (38-126) U/L Troponin I <0.012 (0.000-0.034) ng/mL Total Protein (6.3-8.2) g/dL Albumin (3.5-5.0) g/dL Vitamin B12 (200.0-944.0) pg/mL Folate (4.40-31.00) ng/mL TSH (0.465-4.680) mIU/L Urine Color Light Yellow Urine Appearance Clear (Clear) Urine pH 6.5 (5.0-8.0) Ur Specific Buckner 1.009 (1.001-1.035) Urine Protein Negative (Negative) Urine Glucose (UA) Negative (Negative) Urine Ketones Negative (Negative) Urine Blood Negative (Negative) Urine Nitrite Negative (Negative) Urine Bilirubin Negative (Negative) Urine Urobilinogen <2.0 (<2.0) mg/dL Ur Leukocyte Esterase Negative (Negative) 05/14/22 05/15/22 05/15/22 Range/Units 21:42 01:06 05:22 WBC 8.01 (3.8-10.6) k/uL RBC 4.76 (3.80-5.40) m/uL Hgb 13.3 (11.4-16.0) gm/dL Hct 42.9 (34.0-46.0) % MCV 90.1 (80.0-100.0) fL MCH 27.9 (25.0-35.0) pg MCHC 31.0 L (31.0-37.0) g/dL RDW 15.1 H (11.5-15.5) % Plt Count 244 (150-450) k/uL MPV 9.7 Immature Gran % (Auto) 0.1 % Absolute Nucleated RBC 0 (0.00-0.00) X 10*3/uL Neutrophils % 60.3 % Lymphocytes % 29.1 % Monocytes % 8.7 % Eosinophils % 1.1 % Basophils % 0.7 % Immature Gran # 0.01 (0.00-0.04) X 10*3/uL Neutrophils # 4.82 (1.3-7.7) k/uL Lymphocytes # 2.33 (1.0-4.8) k/uL Monocytes # 0.70 (0-1.0) k/uL Eosinophils # 0.09 (0-0.7) k/uL Basophils # 0.06 (0-0.2) k/uL NRBC/100 WBC Diff 0 (0.0-0.0) /100 WBCS Hypochromasia PT (9.0-12.0) sec INR (<1.2) APTT (22.0-30.0) sec Sodium (137-145) mmol/L Potassium (3.5-5.1) mmol/L Chloride (98-107) mmol/L Carbon Dioxide (22-30) mmol/L Anion Gap mmol/L BUN (7-17) mg/dL Creatinine (0.52-1.04) mg/dL Est GFR (CKD-EPI)AfAm (>60 ml/min/1.73 sqM) Est GFR (CKD-EPI)NonAf (>60 ml/min/1.73 sqM) BUN/Creatinine Ratio (12.00-20.00) Ratio Glucose (74-99) mg/dL Estimated Ave Glu mg/dL Hemoglobin A1c (0.0-6.0) % Plasma Lactic Acid Jaylon (0.7-2.0) mmol/L Calcium (8.4-10.2) mg/dL Magnesium (1.6-2.3) mg/dL Total Bilirubin (0.2-1.3) mg/dL AST (14-36) U/L ALT (4-34) U/L Alkaline Phosphatase (38-126) U/L Troponin I <0.012 <0.012 (0.000-0.034) ng/mL Total Protein (6.3-8.2) g/dL Albumin (3.5-5.0) g/dL Vitamin B12 (200.0-944.0) pg/mL Folate (4.40-31.00) ng/mL TSH (0.465-4.680) mIU/L Urine Color Urine Appearance (Clear) Urine pH (5.0-8.0) Ur Specific Buckner (1.001-1.035) Urine Protein (Negative) Urine Glucose (UA) (Negative) Urine Ketones (Negative) Urine Blood (Negative) Urine Nitrite (Negative) Urine Bilirubin (Negative) Urine Urobilinogen (<2.0) mg/dL Ur Leukocyte Esterase (Negative) 05/15/22 05/15/22 05/15/22 Range/Units 05:22 05:22 05:22 WBC (3.8-10.6) k/uL RBC (3.80-5.40) m/uL Hgb (11.4-16.0) gm/dL Hct (34.0-46.0) % MCV (80.0-100.0) fL MCH (25.0-35.0) pg MCHC (31.0-37.0) g/dL RDW (11.5-15.5) % Plt Count (150-450) k/uL MPV Immature Gran % (Auto) % Absolute Nucleated RBC (0.00-0.00) X 10*3/uL Neutrophils % % Lymphocytes % % Monocytes % % Eosinophils % % Basophils % % Immature Gran # (0.00-0.04) X 10*3/uL Neutrophils # (1.3-7.7) k/uL Lymphocytes # (1.0-4.8) k/uL Monocytes # (0-1.0) k/uL Eosinophils # (0-0.7) k/uL Basophils # (0-0.2) k/uL NRBC/100 WBC Diff (0.0-0.0) /100 WBCS Hypochromasia PT (9.0-12.0) sec INR (<1.2) APTT (22.0-30.0) sec Sodium 141 (137-145) mmol/L Potassium 4.0 (3.5-5.1) mmol/L Chloride 104 (98-107) mmol/L Carbon Dioxide 24.8 (22-30) mmol/L Anion Gap 12.20 mmol/L BUN 14.9 (7-17) mg/dL Creatinine 0.8 (0.52-1.04) mg/dL Est GFR (CKD-EPI)AfAm 76.8 (>60 ml/min/1.73 sqM) Est GFR (CKD-EPI)NonAf 66.3 (>60 ml/min/1.73 sqM) BUN/Creatinine Ratio 18.63 (12.00-20.00) Ratio Glucose 114 H (74-99) mg/dL Estimated Ave Glu mg/dL 118 Hemoglobin A1c 5.8 (0.0-6.0) % Plasma Lactic Acid Jaylon (0.7-2.0) mmol/L Calcium 9.1 (8.4-10.2) mg/dL Magnesium (1.6-2.3) mg/dL Total Bilirubin (0.2-1.3) mg/dL AST (14-36) U/L ALT (4-34) U/L Alkaline Phosphatase (38-126) U/L Troponin I (0.000-0.034) ng/mL Total Protein (6.3-8.2) g/dL Albumin (3.5-5.0) g/dL Vitamin B12 674.0 (200.0-944.0) pg/mL Folate (4.40-31.00) ng/mL TSH (0.465-4.680) mIU/L Urine Color Urine Appearance (Clear) Urine pH (5.0-8.0) Ur Specific Buckner (1.001-1.035) Urine Protein (Negative) Urine Glucose (UA) (Negative) Urine Ketones (Negative) Urine Blood (Negative) Urine Nitrite (Negative) Urine Bilirubin (Negative) Urine Urobilinogen (<2.0) mg/dL Ur Leukocyte Esterase (Negative) 05/15/22 Range/Units 05:22 WBC (3.8-10.6) k/uL RBC (3.80-5.40) m/uL Hgb (11.4-16.0) gm/dL Hct (34.0-46.0) % MCV (80.0-100.0) fL MCH (25.0-35.0) pg MCHC (31.0-37.0) g/dL RDW (11.5-15.5) % Plt Count (150-450) k/uL MPV Immature Gran % (Auto) % Absolute Nucleated RBC (0.00-0.00) X 10*3/uL Neutrophils % % Lymphocytes % % Monocytes % % Eosinophils % % Basophils % % Immature Gran # (0.00-0.04) X 10*3/uL Neutrophils # (1.3-7.7) k/uL Lymphocytes # (1.0-4.8) k/uL Monocytes # (0-1.0) k/uL Eosinophils # (0-0.7) k/uL Basophils # (0-0.2) k/uL NRBC/100 WBC Diff (0.0-0.0) /100 WBCS Hypochromasia PT (9.0-12.0) sec INR (<1.2) APTT (22.0-30.0) sec Sodium (137-145) mmol/L Potassium (3.5-5.1) mmol/L Chloride (98-107) mmol/L Carbon Dioxide (22-30) mmol/L Anion Gap mmol/L BUN (7-17) mg/dL Creatinine (0.52-1.04) mg/dL Est GFR (CKD-EPI)AfAm (>60 ml/min/1.73 sqM) Est GFR (CKD-EPI)NonAf (>60 ml/min/1.73 sqM) BUN/Creatinine Ratio (12.00-20.00) Ratio Glucose (74-99) mg/dL Estimated Ave Glu mg/dL Hemoglobin A1c (0.0-6.0) % Plasma Lactic Acid Jaylon (0.7-2.0) mmol/L Calcium (8.4-10.2) mg/dL Magnesium (1.6-2.3) mg/dL Total Bilirubin (0.2-1.3) mg/dL AST (14-36) U/L ALT (4-34) U/L Alkaline Phosphatase (38-126) U/L Troponin I (0.000-0.034) ng/mL Total Protein (6.3-8.2) g/dL Albumin (3.5-5.0) g/dL Vitamin B12 (200.0-944.0) pg/mL Folate 25.50 (4.40-31.00) ng/mL TSH (0.465-4.680) mIU/L Urine Color Urine Appearance (Clear) Urine pH (5.0-8.0) Ur Specific Buckner (1.001-1.035) Urine Protein (Negative) Urine Glucose (UA) (Negative) Urine Ketones (Negative) Urine Blood (Negative) Urine Nitrite (Negative) Urine Bilirubin (Negative) Urine Urobilinogen (<2.0) mg/dL Ur Leukocyte Esterase (Negative) Disposition Clinical Impression: Bradycardia Disposition: ADMITTED IP TO THIS [facility] Condition: Stable Is patient prescribed a controlled substance at d/c from ED?: No Time of Disposition: 18:47 Decision to Admit Reason: Admit from EC Decision Date: 05/14/22 Decision Time: 18:47
[2022-05-14 17:34] LABS: Basophils # (A) 0.1 k/uL (0-0.2); Basophils % (A) 1 %; Eosinophils # (A) 0.1 k/uL (0-0.7); Eosinophils % (A) 1 %; HCT 42.7 % (34.0-46.0); HGB 13.7 gm/dL (11.4-16.0); Hypochromasia Slight; Lymphocytes # (A) 1.8 k/uL (1.0-4.8); Lymphocytes % (A) 22 %; MCH 29.3 pg (25.0-35.0); MCV 91.7 fL (80.0-100.0); Mean Platelet Volume 7.2; Monocytes # (A) 0.5 k/uL (0-1.0); Monocytes % (A) 7 %; Neutrophils # (A) 5.5 k/uL (1.3-7.7); Neutrophils % (A) 67 %; Platelet Count 229 k/uL (150-450); RBC 4.66 m/uL (3.80-5.40); RDW 14.9 % (11.5-15.5); WBC 8.2 k/uL (3.8-10.6)
[2022-05-14 17:55] LABS: ALT 18 U/L (4-34); AST 27 U/L (14-36); African American GFR (CKD) 79 (>60 ml/min/1.73 sqM); Albumin 3.8 g/dL (3.5-5.0); Alkaline Phosphatase 53 U/L (38-126); Anion Gap 9 mmol/L; Blood Urea Nitrogen 17 mg/dL (7-17); Calcium 8.8 mg/dL (8.4-10.2); Carbon Dioxide 28 mmol/L (22-30); Chloride 101 mmol/L (98-107); Glucose 121 mg/dL (74-99); INR 1.1 (<1.2); Magnesium 2.2 mg/dL (1.6-2.3); Non-African American GFR(CKD) 69 (>60 ml/min/1.73 sqM); Partial Thromboplastin Time 24.4 sec (22.0-30.0); Potassium 4.4 mmol/L (3.5-5.1); Prothrombin Time 11.1 sec (9.0-12.0); Sodium 138 mmol/L (137-145); Total Bilirubin 0.4 mg/dL (0.2-1.3); Total Protein 6.5 g/dL (6.3-8.2)
[2022-05-14 18:12] LABS: Appearance,Urine Clear (Clear); Bilirubin,Urine Negative (Negative); Blood,Urine Negative (Negative); Color,Urine Light Yellow; Glucose,Urine (UA) Negative (Negative); Ketones,Urine Negative (Negative); Leukocyte Esterase,Urine Negative (Negative); Nitrite,Urine Negative (Negative); PH, Urine 6.5 (5.0-8.0); Protein,Urine Negative (Negative); Specific Gravity,Urine 1.009 (1.001-1.035); Urobilinogen,Urine <2.0 mg/dL (<2.0)
[2022-05-14] MEDS ORDERED: NALOXONE 0.4 MG/ML 1 ML VIAL IV PRN (18:51)
[2022-05-14] MEDS ORDERED: ALBUTEROL HFA INHALER INHALATION PRN (19:08)
[2022-05-14] MEDS: PRAVASTATIN SODIUM 40 MG TAB PO SCH (21:57)
[2022-05-14] MEDS: ASCORBIC ACID 500 MG TAB PO SCH (21:58)
[2022-05-14] MEDS: LATANOPROST 0.005% OPHTH DROPS 2.5 ML BTL BOTH EYES SCH (21:58)
[2022-05-14] MEDS: APIXABAN 2.5 MG TABLET PO SCH (21:58)
[2022-05-14] MEDS: MELATONIN 1 MG TAB PO SCH (21:58)
[2022-05-15] MEDS ORDERED: hydrALAZINE HCL 50 MG TAB PO PRN (02:45)
[2022-05-15] MEDS ORDERED: hydrALAZINE HCL 50 MG TAB PO ONE (02:45)
--- NOTE | 2022-05-15 03:45 | CT ---
EXAMINATION TYPE: CT brain wo con DATE OF EXAM: 05/15/2022 COMPARISON: 12/11/2019 HISTORY: sudden onset of confusion CT DLP: 1116 mGycm Automated exposure control for dose reduction was used. Images of the brain obtained with no contrast. There is hypodensity in the lateral right frontal lobe consistent with old encephalomalacia. This are a measures 5 x 3 cm. There is no mass effect or midline shift. No sign of intracranial hemorrhage. Th e calvarium is intact. There is normal aeration of the mastoid sinuses. There is 1.5 cm hypodensity i n the superior left cerebellar hemisphere consistent with old cortical infarct. There is patchy hypod ensity in the periventricular white matter. 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 Cerebral atr ophy. Chronic white matter ischemia. No significant change compared to old exam. No hemorrhage.
[2022-05-15] MEDS: PANTOPRAZOLE 40 MG TABLET PO SCH (08:54)
[2022-05-15] MEDS: FERROUS SULFATE 325 MG TAB PO SCH (08:56)
[2022-05-15] MEDS: FUROSEMIDE 20 MG TAB PO SCH (08:56)
[2022-05-15] MEDS: DULoxetine HCL 30 MG CAPSULE.DR PO SCH (08:56)
[2022-05-15] MEDS: APIXABAN 2.5 MG TABLET PO SCH ×2 (08:57→21:53)
[2022-05-15] MEDS: CHOLECALCIFEROL 25 MCG (1000 IU) TABLET PO SCH (08:57)
[2022-05-15] MEDS: ISOSORBIDE MONONITRATE ER 30 MG TAB.ER.24H PO SCH (08:57)
[2022-05-15 09:14] LABS: African American GFR (CKD) 76.8 (60.0-200.0); Anion Gap 12.2 mmol/L (10.00-18.00); BUN/Creat Ratio 18.63 Ratio (12.00-20.00); Blood Urea Nitrogen 14.9 mg/dL (9.0-27.0); Calcium 9.1 mg/dL (8.7-10.3); Carbon Dioxide 24.8 mmol/L (20.0-27.5); Non-African American GFR(CKD) 66.3 (60.0-200.0)
[2022-05-15 09:46] LABS: Basophils # (A) 0.06 X 10*3/uL (0.00-0.10); Basophils % (A) 0.7 %; Eosinophils # (A) 0.09 X 10*3/uL (0.04-0.35); Eosinophils % (A) 1.1 %; HCT 42.9 % (37.2-46.3); HGB 13.3 g/dL (12.0-15.0); Immature Grans, Automated 0.1 %; Lymphocytes # (A) 2.33 X 10*3/uL (0.90-5.00); Lymphocytes % (A) 29.1 %; MCH 27.9 pg (27.0-32.0); MCV 90.1 fL (80.0-97.0); Mean Platelet Volume 9.7 fL (9.5-12.2); Monocytes % (A) 8.7 %; NRBC Per 100 WBC 0 /100 WBCS (0.0-0.0); Neutrophils # (A) 4.82 X 10*3/uL (1.80-7.70); Neutrophils % (A) 60.3 %; Platelet Count 244 X 10*3/uL (140-440); RBC 4.76 X 10*6/uL (4.10-5.20); RDW 15.1 % (11.5-14.5); WBC 8.01 X 10*3/uL (4.50-10.00)
--- NOTE | 2022-05-15 14:13 | P.CRDCN ---
History of Present Illness Consult date: 05/15/22 Reason for Consult (text): Bradycardia, weakness History of present illness: History of present illness: This is an 87-year-old female patient of Dr. Tristan Lott with past medical history of COPD, previous strokes, carotid disease, hypertension, hyperlipidemia and chronic back pain with previous lumbar spine surgeries at [facility] and [facility]. We have been asked to see the patient regarding bradycardia and weakness. Patient has been previously evaluated in 2019 for bradycardia. Patient apparently was having difficulty ambulating on her own there was concern for urinary tract infection with generalized weakness and possible need for rehab. EMS found that the patient had heart rate in the 30s. In the emergency center, patient's heart rate was mostly in the 40s with 1 reading of 35. Blood pressure was quite elevated 188/71. Blood pressure this morning is at 135/66. Patient is status post hydralazine 100 mg by mouth 1. Patient was hospitalized earlier this month for multiple falls with generalized weakness and cardiology was not consulted on that hospitalization. Patient was found to have abdominal aortic aneurysm measuring 4.9 cm was seen by vascular surgery and was started on on metoprolol 12.5 mg twice daily. EKG sinus bradycardia of 45 bpm CAT scan of the brain revealed old right lateral frontal lobe infarct. Old left cerebellar hemisphere vertical infarct. Cerebral atrophy. Chronic white matter ischemia. CBC within normal limits. Electrolytes and renal function normal. Blood sugar 114. Troponin negative 3. TSH 1.470. Urinalysis negative for infection. Home cardiac medications: Eliquis 2.5 mg twice daily, Lasix 20 mg daily, Imdur 30 mg daily, Lopressor 12.5 mg twice daily, pravastatin 40 mg at bedtime. Echocardiogram 11/2019: EF 55-60%, moderate concentric left ventricle hypertrophy, grade 1 diastolic dysfunction, trace mitral regurgitation, mild tricuspid regurgitation. Review Of Systems: At the time of my evaluation: Constitutional: No fever, no chills. Reports generalized weakness, reports fatigue. EENT: No headache. No dizziness. Lungs: No shortness of breath, cough, no sputum production. No wheezing. Cardiovascular: Occasional chest pain, no lower extremity edema. No palpitations. No paroxysmal nocturnal dyspnea. No orthopnea. No lightheadedness or dizziness. No syncopal episodes. Abdominal: No abdominal pain. No nausea, vomiting. No diarrhea. No constipation. No bloody or tarry stools. Genitourinary: No dysuria.. No urinary retention. Musculoskeletal: No myalgias. No muscle weakness, no frequent falls. No back pain. No neck pain. Integumentary: No wounds. No rash. No unusual bruising. Neurologic: No aphasia. No facial droop. No change in mentation. No head injury. No headache. Physical examination: Gen: This is an 87-year-old black female, resting in recliner and appears to be comfortable. No acute distress. VS: reviewed HEENT: Head is atraumatic, normocephalic. Pupils equal, round. Sclerae is anicteric. NECK: Supple. No JVD. . LUNGS: Clear to auscultation. No wheezes or rhonchi. No intercostal retractions. HEART: Regular rate and rhythm. 3/6 systolic murmur right sternal border ABDOMEN: Soft No tenderness. EXTREMITIES: No pedal edema. No calf tenderness. NEUROLOGICAL: Patient is awake, alert and oriented x3. Assessment: Generalized weakness Bradycardia Suspect aortic stenosis Hypertension Hyperlipidemia Previous CVAs COPD Chronic back pain with previous back surgeries Abdominal aortic aneurysm 4.9 cm Plan: Resume patient's home cardiac medications except for Lopressor-continue to hold Continue cardiac monitoring for bradycardia arrhythmias Obtain 2-D echocardiogram and Doppler study to assess cardiac structure and function Further recommendations to follow based upon clinical course Thank you kindly for this consultation. Nurse practitioner note has been reviewed, I agree with documented findings and plan of care. Patient was seen and examined. 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,, emphysema; hypoglycemia, hx breast cancer, History of Any Multi-Drug Resistant Organisms: None Reported Past Surgical History: Back Surgery, Breast Surgery, Cholecystectomy, Heart Catheterization Additional Past Surgical History / Comment(s): L SUBCLAVIAN ARTERY BYPASS, Rt CAROTID ENDARTECTOMY, rt breast lumpectomy Past Anesthesia/Blood Transfusion Reactions: No Reported Reaction Additional Past Anesthesia/Blood Transfusion Reaction / Comment(s): PT RECIEVED BLOOD TRANSFUSION Past Psychological History: Anxiety Smoking Status: Former smoker Past Alcohol Use History: None Reported Past Drug Use History: None Reported - Past Family History Brother(s) Family Medical History: Cancer Sister(s) Family Medical History: Cancer Mother Family Medical History: Coronary Artery Disease (CAD) Additional Family Medical History / Comment(s): enlarged heart Father Family Medical History: Coronary Artery Disease (CAD), CVA/TIA Medications and Allergies Home Medications Medication Instructions Recorded Confirmed Type Pravastatin Sodium [Pravachol] 40 mg PO HS 08/04/13 05/14/22 History Ascorbic Acid [Vitamin C with Stacy 500 mg PO HS 02/22/16 05/14/22 History Hips] Ferrous Sulfate [Iron (65 MG 325 mg PO DAILY 02/05/17 05/14/22 History Elemental)] Cholecalciferol [Vitamin D3 (25 1,000 unit PO DAILY 04/11/18 05/14/22 History Mcg = 1000 Iu)] Pantoprazole [Protonix] 40 mg PO DAILY 04/11/18 05/14/22 History Albuterol Inhaler [Ventolin Hfa 2 puff INHALATION RT-Q6H PRN 04/29/22 05/14/22 History Inhaler] Apixaban [Eliquis] 2.5 mg PO BID 04/29/22 05/14/22 History DULoxetine HCL [Cymbalta] 30 mg PO DAILY 04/29/22 05/14/22 History Denosumab [Prolia] 60 mg SQ Q180D 04/29/22 05/14/22 History Furosemide [Lasix] 20 mg PO DAILY 04/29/22 05/14/22 History Isosorbide Mononitrate ER [Imdur] 30 mg PO DAILY 04/29/22 05/14/22 History Latanoprost [Latanoprost 0.005%] 1 drop BOTH EYES HS 04/29/22 05/14/22 History Melatonin 1 mg PO HS 04/29/22 05/14/22 History Metoprolol Tartrate [Lopressor] 12.5 mg PO BID 30 Days #60 tablet 05/02/22 05/14/22 Rx Allergies Allergy/AdvReac Type Severity Reaction Status Date / Time No Known Allergies Allergy Verified 05/14/22 18:49 Physical Exam Vitals: Vital Signs Temp Pulse Pulse Resp BP BP Pulse Ox 05/15/22 08:02 100 05/15/22 07:00 97.6 F 69 18 135/66 97 05/15/22 06:34 61 18 127/60 100 05/15/22 05:39 55 L 16 130/64 100 05/15/22 04:18 44 L 18 156/56 100 05/15/22 03:20 48 L 16 188/71 96 05/15/22 02:20 35 L 18 180/71 97 05/15/22 01:39 98 F 45 L 18 187/76 98 05/14/22 22:04 47 L 16 178/67 98 05/14/22 20:00 48 L 05/14/22 19:20 98.4 F 79 16 140/76 97 05/14/22 19:06 53 L 16 168/74 95 05/14/22 16:44 98 F 47 L 16 142/63 96 Intake and Output 05/14/22 05/15/22 05/15/22 22:59 06:59 14:59 Intake Total 100 Balance 100 Intake: Oral 100 Other: Voiding Method Toilet # Voids 1 Weight 68.039 kg Results 05/15/22 05:22 05/15/22 05:22 Cardiac Enzymes 05/14/22 05/14/22 05/14/22 Range/Units 17:09 17:09 21:42 AST 27 (14-36) U/L Troponin I <0.012 <0.012 (0.000-0.034) ng/mL 05/15/22 Range/Units 01:06 AST (14-36) U/L Troponin I <0.012 (0.000-0.034) ng/mL Coagulation 05/14/22 Range/Units 17:09 PT 11.1 (9.0-12.0) sec APTT 24.4 (22.0-30.0) sec CBC 05/14/22 05/15/22 Range/Units 17:09 05:22 WBC 8.2 8.01 (3.8-10.6) k/uL RBC 4.66 4.76 (3.80-5.40) m/uL Hgb 13.7 13.3 (11.4-16.0) gm/dL Hct 42.7 42.9 (34.0-46.0) % Plt Count 229 244 (150-450) k/uL Comprehensive Metabolic Panel 05/14/22 05/15/22 Range/Units 17:09 05:22 Sodium 138 141 (137-145) mmol/L Potassium 4.4 4.0 (3.5-5.1) mmol/L Chloride 101 104 (98-107) mmol/L Carbon Dioxide 28 24.8 (22-30) mmol/L BUN 17 14.9 (7-17) mg/dL Creatinine 0.78 0.8 (0.52-1.04) mg/dL Glucose 121 H 114 H (74-99) mg/dL Calcium 8.8 9.1 (8.4-10.2) mg/dL AST 27 (14-36) U/L ALT 18 (4-34) U/L Alkaline Phosphatase 53 (38-126) U/L Total Protein 6.5 (6.3-8.2) g/dL Albumin 3.8 (3.5-5.0) g/dL Current Medications Generic Name Dose Route Start Last Admin Trade Name Freq PRN Reason Stop Dose Admin Albuterol Sulfate 2 puff 05/14/22 19:08 Albuterol Hfa Inhaler INHALATION RT-Q6H PRN Shortness Of Breath Apixaban 2.5 mg 05/14/22 21:00 05/15/22 08:57 Apixaban 2.5 Mg Tablet PO 2.5 mg BID JARETH Administration Protocol Ascorbic Acid 500 mg 05/14/22 21:00 05/14/22 21:58 Ascorbic Acid 500 Mg Tab PO 500 mg HS JARETH Administration Cholecalciferol 25 mcg 05/15/22 09:00 05/15/22 08:57 Cholecalciferol 25 Mcg (1000 Iu) Tablet PO 25 mcg DAILY JARETH Administration Duloxetine HCl 30 mg 05/15/22 09:00 05/15/22 08:56 Duloxetine Hcl 30 Mg Capsule.Dr PO 30 mg DAILY JARETH Administration Ferrous Sulfate 325 mg 05/15/22 09:00 05/15/22 08:56 Ferrous Sulfate 325 Mg Tab PO 325 mg DAILY JARETH Administration Furosemide 20 mg 05/15/22 09:00 05/15/22 08:56 Furosemide 20 Mg Tab PO 20 mg DAILY JARETH Administration Hydralazine HCl 50 mg 05/15/22 02:45 Hydralazine Hcl 50 Mg Tab PO Q6HR PRN Blood Pressure - High Isosorbide Mononitrate 30 mg 05/15/22 09:00 05/15/22 08:57 Isosorbide Mononitrate Er 30 Mg Tab.Er.24h PO 30 mg DAILY JARETH Administration Latanoprost 1 drops 05/14/22 21:00 05/14/22 21:58 Latanoprost 0.005% Ophth Drops 2.5 Ml Btl BOTH EYES 1 drops HS JARETH Administration Melatonin 1 mg 05/14/22 21:00 05/14/22 21:58 Melatonin 1 Mg Tab PO 1 mg HS JARETH Administration Naloxone HCl 0.2 mg 05/14/22 18:51 Naloxone 0.4 Mg/Ml 1 Ml Vial IV Q2M PRN Opioid Reversal Pantoprazole Sodium 40 mg 05/15/22 07:30 05/15/22 08:54 Pantoprazole 40 Mg Tablet PO Not Given DAILY@0730 JARETH Pravastatin Sodium 40 mg 05/14/22 21:00 05/14/22 21:57 Pravastatin Sodium 40 Mg Tab PO 40 mg HS JARETH Administration Intake and Output 05/14/22 05/15/22 05/15/22 22:59 06:59 14:59 Intake Total 100 Balance 100 Intake: Oral 100 Other: Voiding Method Toilet # Voids 1 Weight 68.039 kg 05/15/22 05:22 05/15/22 05:22
--- NOTE | 2022-05-15 16:30 | US ---
EXAMINATION TYPE: US carotid duplex BILAT DATE OF EXAM: 05/15/2022 COMPARISON: US 2020 CLINICAL HISTORY: 87-year-old female weakness. TECHNIQUE: Carotid duplex ultrasound examination. Indirect Doppler criteria was utilized. FINDINGS: METALLURGICAL TECHNICIAN NOTES: Difficult study due to torturous vessels. Exam done portable EXAM MEASUREMENTS: RIGHT: Peak Systolic Velocity (PSV) cm/sec ----- Right CCA: 138.0 ----- Right ICA: 171.0 ----- Right ECA: 232.0 ICA/CCA ratio: 1.2 RIGHT: End Diastole cm/sec ----- Right CCA: 15.5 ----- Right ICA: 22.0 ----- Right ECA: 0.0 LEFT: Peak Systolic Velocity (PSV) cm/sec ----- Left CCA: 143.0 ----- Left ICA: 176.0 ----- Left ECA: 134.0 ICA/CCA ratio: 1.2 LEFT: End Diastole cm/sec ----- Left CCA: 19.4 ----- Left ICA: 14.8 ----- Left ECA: 0.0 VERTEBRALS (direction of flow): Right Vertebral: Antegrade Left Vertebral: Antegrade Rhythm: Arrhythmia Veneer Sheet Repairer notes: No significant stenosis IMPRESSION: 1. Elevated ICA peak systolic velocities likely on the basis of turbulent flow as the end diastolic v elocities and ICA/CCA ratios fall within normal limits. 2. The sash assembler indicates some type abnormal cardiac rhythm during the scan. Clinically correlate. Criteria for Assigning % of Stenosis / Diameter reduction (Estimation based on the indirect measurements of the internal carotid artery velocities (ICA PSV). 1. Normal (no stenosis)=ICA PSV < 125 cm/s: ratio < 2.0: ICA EDV<40 cm/s. 2. Less than 50% stenosis=ICA PSV < 125 cm/s: ratio < 2.0: ICA EDV<40 cm/s. 3. 50 to 69% stenosis=ICA PSV of 125 to 230 cm/s: ration 2.0 ? 4.0: ICA EDV 40-100 cm/s. 4. Greater than 70% stenosis to near occlusion= ICA PSV > 230 cm/s: ratio > 4.0: ICA EDV > 100 cm/s. 5. Near occlusion= ICA PSV velocities may be low or undetectable: variable ratio and ICA EDV. 6. Total occlusion=unable to detect flow.
[2022-05-15] MEDS: PRAVASTATIN SODIUM 40 MG TAB PO SCH (21:53)
[2022-05-15] MEDS: MELATONIN 1 MG TAB PO SCH (21:54)
[2022-05-15] MEDS: ASCORBIC ACID 500 MG TAB PO SCH (21:54)
[2022-05-15] MEDS: LATANOPROST 0.005% OPHTH DROPS 2.5 ML BTL BOTH EYES SCH (21:54)
--- NOTE | 2022-05-15 22:41 | HP ---
HISTORY AND PHYSICAL CHIEF COMPLAINT: Weakness and hypertension. HISTORY OF PRESENT ILLNESS: This is an 87-year-old woman with a past medical history of multiple medical problems including CHF, COPD, was recently admitted to [facility] apparently because of weakness. The patient is also evaluated for rehab. Currently, the patient is being admitted with significant weakness. The blood pressure is also fluctuating. The patient also has severe bradycardia possibly secondary to beta blockers. EMS thought that the heart rate is in 30s and the patient was admitted for further evaluation and treatment. There is no history of any fever, rigors, or chills at this time. PAST MEDICAL HISTORY: Reviewed include CHF, COPD, CVA, TIA. HOME MEDICATIONS: Reviewed include Pravachol. Dose and rest of medications noted. ALLERGIES: None. The chart is also reviewed. FAMILY HISTORY: History of CAD. SOCIAL HISTORY: Previous history of smoking. REVIEW OF SYSTEMS: A 14-point review is negative except as mentioned earlier. PHYSICAL EXAMINATION: VITAL SIGNS: Pulse is 69, blood pressure 130/60, respirations 18. HEENT: Conjunctivae normal. NECK: No jugular venous distention. CARDIOVASCULAR: S1 and S2. RESPIRATORY: Breath sounds diminished at the bases. A few scattered rhonchi and crackles. ABDOMEN: Soft, nontender. LEGS: No edema. NERVOUS SYSTEM: No focal deficits. SKIN: No ulcer, rash, bleeding. JOINTS: No active deforming arthropathy. LABORATORY DATA: Reviewed. DIAGNOSTIC DATA: CT of the brain, which was done at the time of admission reviewed. Old right lateral frontal infarct. ASSESSMENT: 1. Accelerated uncontrolled labile hypertension. 2. Severe bradycardia. 3. History of recent low back pain and disk herniation. 4. Abdominal aortic aneurysm. 5. History of hypertension. 6. Multiple falls. 7. Generalized weakness. 8. Old right frontal infarct and cerebrovascular accident. 9. History of chronic obstructive pulmonary disease. 10.History of deep venous thrombosis. 11.Multiple medical issues. RECOMMENDATIONS: This is an 87-year-old woman who presented with multiple complex medical issues, we will monitor the patient closely. I would initiate hydralazine. Obtain Cardiology and Neurology consultations, antiplatelet agents, Lipitor, PT/OT evaluation, possible ECF rehab. We will adjust home medications. Overall, prognosis is extremely guarded as mentioned earlier. DVT prophylaxis. Further recommendations to follow. The patient is already on Eliquis and further recommendations to follow. We will hold the beta blockers at this time. See orders for details. Social Work, case management for possible ECF rehab. MMODL / IJN: [id number] /
[2022-05-16] MEDS: PANTOPRAZOLE 40 MG TABLET PO SCH (06:34)
[2022-05-16] MEDS: CHOLECALCIFEROL 25 MCG (1000 IU) TABLET PO SCH (09:08)
[2022-05-16] MEDS: FERROUS SULFATE 325 MG TAB PO SCH (09:08)
[2022-05-16] MEDS: ISOSORBIDE MONONITRATE ER 30 MG TAB.ER.24H PO SCH (09:08)
[2022-05-16] MEDS: DULoxetine HCL 30 MG CAPSULE.DR PO SCH (09:08)
[2022-05-16] MEDS: FUROSEMIDE 20 MG TAB PO SCH (09:09)
[2022-05-16] MEDS: ASPIRIN 81 MG PO SCH (09:09)
[2022-05-16] MEDS: APIXABAN 2.5 MG TABLET PO SCH ×2 (09:09→20:05)
--- NOTE | 2022-05-16 09:19 | P.CNNES ---
History of Present Illness Consult date: 05/15/22 Requesting physician: Sheridan Ventura Reason for Consult: weak, old stroke History of Present Illness: Patient is a 87-year-old female, with history of atrial fibrillation on anticoagulation with Eliquis, came to the hospital by ambulance yesterday at 4:38 PM for mental status change. Patient's son was present, who provided the history. He states that Sunday evening, patient started acting confused, not like herself, she was hallucinating, seeing people in the house. She never touches the blinds, but she did open the blinds that night. She thought that someone was taking her car. She kept getting out of bed. He did not notice any stroke symptoms like facial droop, slurred speech, problem with the vision, f ocal weakness numbness or tingling. Patient's son believes that she was started on blood pressure medication recently, which may be the cause of her hallucinations. As per EMS flow sheet, when they arrived, patient was stating that she is feeling dizzy. Patient's son on location stated that patient has been unsteady on her feet today. Patient has history of breast cancer, UTI, hypertension. No previous history of atrial fibrillation or cardiac issues. Patient was alert and oriented 4. EKG revealed atrial fibrillation. Patient denied any chest pain or shortness of breath. Patient was placed on metoprolol last time she was at the ER. Patient's stroke assessment was negative. Patient's lungs were clear, abdomen was soft. Patient mentioned that she just started physical therapy on her back. Patient has had recent falls but none very recently. Patient's blood pressure at the scene was 154/50, pulse rate 75. Patient's son mentions that patient had a similar episode 3-5 months ago, when she had acute memory issues. She was hospitalized at the [facility] and while in the hospital she became more confused, started lashing out. While in the hospital she was diagnosed with UTI. Patient's son admits that her short-term memory is not good although long-term memory is very well. No history of seizures. Patient also tells me that for last few months, she has been having episodes, in which her left hand would become weak/drops and sometimes "keeps on going it". 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 No jerking or seizure-like activity observed by patient or her son. Patient was recently evaluated in the ED on 04/29/2022 for low back pain. Patient has history of an acute stroke in December 2014 after she recovered from her breast cancer surgery, she could not use her left hand. It took almost 1-2 weeks for her to recover and 2 weeks later she was back to baseline, driving. The patient had low back surgery after which she was started on Coumadin, perhaps for atrial fibrillation. She stayed on Coumadin for years. About 2 or 3 years ago, she was switched to Eliquis. Vital signs unremarkable blood pressure 142/63 pulse rate 47 temperature 98.0. Blood test shows normal CBC, PT/PTT, normal CMP, troponin negative. TSH normal. UA negative. CT head reported old right lateral frontal lobe infarct. Old left cerebellar hemisphere vertical infarct. Cerebral atrophy. Chronic white matter ischemia. No significant change compared to old exam from 12/11/2019. I personally reviewed CT head and compared with the previous CT from 12/11/2019. There is persistence of right frontal CVA, left cerebellar and right basal ganglia on L old [place], also seen in the previous computed tomography scan as well. No acute change. EKG shows sinus bradycardia. Review of Systems Constitutional: Denies chills, Denies fever Eyes: denies blurred vision, denies diplopia, denies pain Ears: deny: decreased hearing, ear discharge Ears, nose, mouth and throat: Denies headache, Denies sore throat Cardiovascular: Denies chest pain, Denies shortness of breath Respiratory: Reports excessive sputum, Denies cough, Denies cough with sputum Gastrointestinal: Denies abdominal pain, Denies diarrhea, Denies nausea, Denies vomiting Genitourinary: Denies dysuria, Denies hematuria, Denies vaginal odor Musculoskeletal: Reports frequent falls, Reports low back pain, Reports muscle weakness, Denies neck pain Integumentary: Denies pruritus, Denies rash Neurological: Reports as per HPI Psychiatric: Reports insomnia, Denies anxiety, Denies depression Endocrine: Reports fatigue, Denies weight change Hematologic/Lymphatic: Denies easy bleeding, Denies easy bruising 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,, emphysema; hypoglycemia, hx breast cancer, History of Any Multi-Drug Resistant Organisms: None Reported Past Surgical History: Back Surgery, Breast Surgery, Cholecystectomy, Heart Catheterization Additional Past Surgical History / Comment(s): L SUBCLAVIAN ARTERY BYPASS, Rt CAROTID ENDARTECTOMY, rt breast lumpectomy Past Anesthesia/Blood Transfusion Reactions: No Reported Reaction Additional Past Anesthesia/Blood Transfusion Reaction / Comment(s): PT RECIEVED BLOOD TRANSFUSION Past Psychological History: Anxiety Smoking Status: Former smoker Past Alcohol Use History: None Reported Past Drug Use History: None Reported - Past Family History Brother(s) Family Medical History: Cancer Sister(s) Family Medical History: Cancer Mother Family Medical History: Coronary Artery Disease (CAD) Additional Family Medical History / Comment(s): enlarged heart Father Family Medical History: Coronary Artery Disease (CAD), CVA/TIA Medications and Allergies Home Medications Medication Instructions Recorded Confirmed Type Pravastatin Sodium [Pravachol] 40 mg PO HS 08/04/13 05/14/22 History Ascorbic Acid [Vitamin C with Stacy 500 mg PO HS 02/22/16 05/14/22 History Hips] Ferrous Sulfate [Iron (65 MG 325 mg PO DAILY 02/05/17 05/14/22 History Elemental)] Cholecalciferol [Vitamin D3 (25 1,000 unit PO DAILY 04/11/18 05/14/22 History Mcg = 1000 Iu)] Pantoprazole [Protonix] 40 mg PO DAILY 04/11/18 05/14/22 History Albuterol Inhaler [Ventolin Hfa 2 puff INHALATION RT-Q6H PRN 04/29/22 05/14/22 History Inhaler] Apixaban [Eliquis] 2.5 mg PO BID 04/29/22 05/14/22 History DULoxetine HCL [Cymbalta] 30 mg PO DAILY 04/29/22 05/14/22 History Denosumab [Prolia] 60 mg SQ Q180D 04/29/22 05/14/22 History Furosemide [Lasix] 20 mg PO DAILY 04/29/22 05/14/22 History Isosorbide Mononitrate ER [Imdur] 30 mg PO DAILY 04/29/22 05/14/22 History Latanoprost [Latanoprost 0.005%] 1 drop BOTH EYES HS 04/29/22 05/14/22 History Melatonin 1 mg PO HS 04/29/22 05/14/22 History Metoprolol Tartrate [Lopressor] 12.5 mg PO BID 30 Days #60 tablet 05/02/22 05/14/22 Rx Allergies Allergy/AdvReac Type Severity Reaction Status Date / Time No Known Allergies Allergy Verified 05/14/22 18:49 Physical Examination - Vital Signs Vital Signs: Vital Signs Temp Pulse Resp BP Pulse Ox 05/15/22 15:00 98.9 F 81 16 108/52 92 L 05/15/22 08:02 100 05/15/22 07:00 97.6 F 69 18 135/66 97 05/15/22 06:34 61 18 127/60 100 05/15/22 05:39 55 L 16 130/64 100 05/15/22 04:18 44 L 18 156/56 100 05/15/22 03:20 48 L 16 188/71 96 05/15/22 02:20 35 L 18 180/71 97 05/15/22 01:39 98 F 45 L 18 187/76 98 05/14/22 22:04 47 L 16 178/67 98 05/14/22 20:00 48 L Intake and Output 05/15/22 05/15/22 05/15/22 06:59 14:59 22:59 Intake Total 100 236 Balance 100 236 Intake: Oral 100 236 Other: # Voids 1 Patient is an elderly of her [place] female, very pleasant, in no acute distress. Patient is alert awake oriented to time place and person. She knows it is April and the year is and that she is in [facility] in [facility]. She knows her date of and name of the current president. Speech and language functions are normal. Patient can name and repeat very well. No aphasia or dysarthria. Attention, concentration and fund of knowledge is adequate for her age. Detail cognitive function testing deferred. On cranial nerve examination, pupils are equal, round and reacting to light, visual everett are full on confrontation, with no neglect on double simultaneous stimulation. Extraocular muscles are intact with no nystagmus. Face is symmetric, tongue protrudes to the midline. Palatal elevation and sensation normal, hearing and shoulder shrug normal, facial sensation normal. On muscle strength testing, her right shoulder is weak with pain, likely from rotator cuff tear. Her ankle dorsiflexion is slightly weak on the right 5- as compared to the left. Otherwise hip flexion, and rest of the muscle strength is normal in the arms and legs. Deep tendon reflexes are symmetric 1 at the biceps, 1 brachioradialis, 1 at the knees 0 ankles and plantars are flat bilaterally. Sensory to touch is equal with no neglect on double simultaneous stimulation. Cerebellar function showed mild ataxia for [id number] testing only on the left side, but not on the right. Tone and bulk of muscles normal. Gait deferred. Patient states that she cannot walk because of low back pain. Denies diabetes. On general examination, there is no carotid bruit or murmur, S1-S2 audible. Chest is clear on consultation. Abdomen is soft nontender. No organomegaly, bowel sounds present. Peripheral pulses are present. No edema. Results - Laboratory Findings CBC and BMP: 05/15/22 05:22 05/15/22 05:22 Abnormal Lab Findings: Abnormal Labs 05/14/22 05/15/22 05/15/22 17:09 05:22 05:22 MCHC 31.0 L RDW 15.1 H Glucose 121 H 114 H Assessment and Plan Assessment: * Altered mental status, unclear etiology, possible delirium. No evidence of acute UTI. * Abnormal CT head, with evidence of old strokes involving the left cerebellum, right frontal region and right basal ganglia, all of them are chronic, also seen in computed tomography scan of head from 12/11/2019. No acute ischemic process. * Atrial fibrillation on anticoagulation with Eliquis 2.5 mg twice a day, also on aspirin 81 mg daily. * History of right CEA. * Hypertension * Hyperlipidemia * Chronic back pain * History of breast cancer Plan: * Patient had an acute delirium of unclear cause. No evidence of infection noticed. Patient's son believes that metoprolol is the cause, as it was started on the last admission. * Patient has history of old strokes in the past. We will check EEG to rule out any epileptiform activity. * Carotid Doppler revealed elevated ICA peak systolic velocities likely on the b asis of turbulent flow as the end-diastolic velocities and ICA/CCA ratios fall within normal limits. Antegrade flow in both vertebral arteries. * Agree with checking 2-D echo. * Continue Eliquis and ASA 81 mg. * Continue Pravachol 40 mg. Her lipids are well controlled. * TSH normal 1.47. We will check B12, folate and A1c. * Neurology will follow. Thank you for the consult.
--- NOTE | 2022-05-16 14:01 | CA ---
Transthoracic Echo Report Name: Kate Medrano Age: 87 Gender: F : 1935 Exam Date: 05/16/2022 09:36 Exam Location: [facility] Ht (in): 65 Wt (lb): 150 Ordering Physician: Danna Canada Attending/Referring Phys: [id number], Nancie Disability Advocate Marco Carlson RDCS Procedure CPT: Indications: LVF Cardiac Hx: A. Fib/Flutter. CHF; Technical Quality: Fair Contrast 1: Total Dose (mL): Contrast 2: Total Dose (mL): MEASUREMENTS (Male / Female) Normal Values 2D ECHO LV Diastolic Diameter PLAX 3.1 cm 4.2 - 5.9 / 3.9 - 5.3 cm LV Systolic Diameter PLAX 2.1 cm IVS Diastolic Thickness 1.8 cm 0.6 - 1.0 / 0.6 - 0.9 cm LVPW Diastolic Thickness 1.6 cm 0.6 - 1.0 / 0.6 - 0.9 cm LV Relative Wall Thickness 1.1 RV Internal Dim ED PLAX 3.1 cm LVOT Diameter 1.7 cm LA Systolic Diameter LX 3.2 cm 3.0 - 4.0 / 2.7 - 3.8 cm LV Diastolic Volume MOD BP 48.5 cm??? 67 - 155 / 56 - 104 cm??? LV Systolic Volume MOD BP 22.4 cm??? 22 - 58 / 19 - 49 cm??? LV Ejection Fraction MOD BP 53.9 % >= 55 % LV Diastolic Volume MOD 4C 53.9 cm??? LV Systolic Volume MOD 4C 22.0 cm??? LV Ejection Fraction MOD 4C 59.3 % LV Diastolic Length 4C 6.1 cm LV Systolic Length 4C 5.9 cm LV Diastolic Volume MOD 2C 41.7 cm??? LV Systolic Volume MOD 2C 21.7 cm??? LV Ejection Fraction MOD 2C 47.9 % LV Diastolic Length 2C 5.8 cm LV Systolic Length 2C 5.6 cm Ascending Aorta Diameter 2.3 cm M-MODE Aortic Root Diameter MM 2.8 cm LA Systolic Diameter MM 2.4 cm LA Ao Ratio MM 0.8 AV Cusp Separation MM 1.1 cm DOPPLER AV Peak Velocity 136.8 cm/s AV Peak Gradient 7.5 mmHg LVOT Peak Velocity 155.2 cm/s LVOT Peak Gradient 9.6 mmHg AV Area Cont Eq pk 2.6 cm??? MV E' Velocity 6.9 cm/s TR Peak Velocity 344.3 cm/s TR Peak Gradient 47.4 mmHg Right Ventricular Systolic Press 55.4 mmHg PV Peak Velocity 96.1 cm/s PV Peak Gradient 3.7 mmHg FINDINGS Left Ventricle Left ventricular ejection fraction is estimated at 55-60. Moderate concentric left ventricle hypertrophy.left ventricular cavity size normal. Right Ventricle Mild right ventricular dilatation. RVSP- 55 mm Hg. Right Atrium Mild right atrial dilatation. Left Atrium Normal left atrial size. Mitral Valve Thickened mitral valve leaflets,mitral annular calcification. Mild mitral regurgitation. Aortic Valve Diffuse thickening (sclerosis) of the aortic valve cusps without reduced excursion. Tricuspid Valve [id number] tricuspid regurgitation.structurally normal tricuspid valve. Pulmonic Valve Trace to mild Mild pulmonic regurgitation. Pericardium Normal pericardium. No pericardial effusion. Aorta Normal size aortic root and proximal ascending aorta. CONCLUSIONS 1. Normal left ventricular size and systolic function 2. Mild mitral with mild to moderate tricuspid regurgitation and moderate pulmonary hypertension 3. Technically difficult study Previewed by: Dr. Kobi Rose MD (Electronically Signed) Final Date: 16 May 2022 14:00
--- NOTE | 2022-05-16 19:04 | P.PN ---
Subjective Progress Note Date: 05/16/22 Patient was seen for a follow-up. Patient is sitting in the recliner, offers no complaints. No further confusional spells. Patient is back to baseline. Objective - Vital Signs Vital signs: Vital Signs Temp 98.5 F 05/16/22 14:16 Pulse 82 05/16/22 14:16 Resp 16 05/16/22 14:16 BP 114/64 05/16/22 14:16 Pulse Ox 92 L 05/16/22 14:16 FiO2 Intake & Output 05/15/22 05/16/22 05/16/22 18:59 06:59 18:59 Intake Total 236 354 Balance 236 354 Intake: Oral 236 354 Other: Voiding Method Toilet # Voids 1 1 1 - Exam Patient is alert and awake, mentation is completely normal. Detail testing deferred. - Labs CBC & Chem 7: 05/15/22 05:22 05/15/22 05:22 Assessment and Plan Assessment: * Acute delirium, unclear cause, perhaps related to medication side effect. No evidence of acute UTI. * Abnormal CT head, with evidence of old strokes involving the left cerebellum, right frontal region and right basal ganglia, all of them are chronic, also seen in computed tomography scan of head from 12/11/2019. No acute ischemic process. * Atrial fibrillation on anticoagulation with Eliquis 2.5 mg twice a day, also on aspirin 81 mg daily. * History of right CEA. * Hypertension * Hyperlipidemia * Chronic back pain * History of breast cancer Plan: * Patient had an acute delirium of unclear cause. No evidence of infection noticed. Patient's son believes that metoprolol is the cause, as it was started on the last admission. Metoprolol has been discontinued. * EEG was performed today, which is borderline abnormal due to minimal background slowing. This may be considered normal for patient's age, although mild encephalopathy cannot be ruled out. No epileptiform activity was seen. * Carotid Doppler revealed elevated ICA peak systolic velocities likely on the basis of turbulent flow as the end-diastolic velocities and ICA/CCA ratios fall within normal limits. Antegrade flow in both vertebral arteries. * 2-D echo revealed normal left ventricular systolic function 55-60%, moderate concentric LVH, mild to moderate tricuspid regurgitation and moderate pulmonary hypertension. Internal medicine to address echo report. * Continue Eliquis and ASA 81 mg. * Continue Pravachol 40 mg. Her lipids are well controlled. * TSH normal 1.47. * B12 674, folate 25.5 and A1c 5.8. * Neurologically, no other workup indicated. Neurologically clear for discharge. Discussed with patient's son in detail.
[2022-05-16] MEDS: PRAVASTATIN SODIUM 40 MG TAB PO SCH (20:05)
[2022-05-16] MEDS: ASCORBIC ACID 500 MG TAB PO SCH (20:05)
[2022-05-16] MEDS: LATANOPROST 0.005% OPHTH DROPS 2.5 ML BTL BOTH EYES SCH ×2 (20:05→20:08)
--- NOTE | 2022-05-16 21:05 | EEG ---
ELECTROENCEPHALOGRAM REPORT PREAMBLE: This is an 87-year-old female with episodes of mental confusion and hallucinations, rule out any seizure activity. EEG FINDINGS: This is a 21-channel digital EEG recorded with video component, utilizing 10/20 international system with referential and bipolar montages. Background consists of well developed, well regulated, moderate voltage activity in 7-8 hertz mixed alpha and theta range, which is posterior dominant and reactive to eye opening and closing. Photic driving response was not seen. Hyperventilation was not performed. Different stages of sleep were not seen. No focal or generalized epileptiform activity was seen. IMPRESSION: This is a borderline abnormal EEG due to minimal background slowing. This may be normal for patient's age, although mild encephalopathy is also a possibility. No epileptiform activity was seen. MMODL / IJN: [id number] /
[2022-05-16] MEDS: MELATONIN 1 MG TAB PO SCH (22:39)
--- NOTE | 2022-05-17 02:12 | P.PN ---
Subjective Progress Note Date: 05/16/22 This is an 87-year-old female was recently admitted with significant weakness and has been having uncontrolled blood sugars along with some bradycardia. Cardiology is evaluating the patient and had 2-D echo which showed an EF of 55- 60% with some mild mitral with mild to moderate tricuspid regurgitation and moderate pulmonary hypertension noted. Patient has been on beta blockers which has been discontinued at this time. Recommend telemetry monitoring. Awaiting PT/OT therapy evaluation and patient will likely be going home with home care. Possible ECF being planned with social work following. Patient is currently afebrile with no reports of chest pain or shortness of breath noted. Encouraged oral intake and continued increased activity as tolerated. Neurology following as well and has undergone EEG. Review of systems: Constitutional: No reports of fatigue, fever, or chills Cardiovascular: No reports of chest pain or palpitations Respiratory: No reports of shortness of breath or cough GI: no reports of nausea, no reports of vomiting, no diarrhea : No reports of dysuria or retention Neurovascular: reports of generalized weakness, improving All medications have been reviewed Active Medications Albuterol Sulfate (Albuterol Hfa Inhaler) 2 puff INHALATION RT-Q6H PRN PRN Reason: Shortness Of Breath Apixaban (Apixaban 2.5 Mg Tablet) 2.5 mg PO BID [facility]; Protocol Last Admin: 05/16/22 20:05 Dose: 2.5 mg Ascorbic Acid (Ascorbic Acid 500 Mg Tab) 500 mg PO HS [facility] Last Admin: 05/16/22 20:05 Dose: 500 mg Aspirin (Aspirin 81 Mg) 81 mg PO DAILY [facility] Last Admin: 05/16/22 09:09 Dose: 81 mg Cholecalciferol (Cholecalciferol 25 Mcg (1000 Iu) Tablet) 25 mcg PO DAILY [facility] Last Admin: 05/16/22 09:08 Dose: 25 mcg Duloxetine HCl (Duloxetine Hcl 30 Mg Capsule.Dr) 30 mg PO DAILY [facility] Last Admin: 05/16/22 09:08 Dose: 30 mg Ferrous Sulfate (Ferrous Sulfate 325 Mg Tab) 325 mg PO DAILY [facility] Last Admin: 05/16/22 09:08 Dose: 325 mg Furosemide (Furosemide 20 Mg Tab) 20 mg PO DAILY [facility] Last Admin: 05/16/22 09:09 Dose: 20 mg Hydralazine HCl (Hydralazine Hcl 50 Mg Tab) 50 mg PO Q6HR PRN PRN Reason: Blood Pressure - High Isosorbide Mononitrate (Isosorbide Mononitrate Er 30 Mg Tab.Er.24h) 30 mg PO DAILY [facility] Last Admin: 05/16/22 09:08 Dose: 30 mg Latanoprost (Latanoprost 0.005% Ophth Drops 2.5 Ml Btl) 1 drops BOTH EYES [facility] Last Admin: 05/16/22 20:08 Dose: Not Given Melatonin (Melatonin 1 Mg Tab) 1 mg PO [facility] Last Admin: 05/16/22 22:39 Dose: 1 mg Naloxone HCl (Naloxone 0.4 Mg/Ml 1 Ml Vial) 0.2 mg IV Q2M PRN PRN Reason: Opioid Reversal Pantoprazole Sodium (Pantoprazole 40 Mg Tablet) 40 mg PO DAILY@0730 [facility] Last Admin: 05/16/22 06:34 Dose: 40 mg Pravastatin Sodium (Pravastatin Sodium 40 Mg Tab) 40 mg PO [facility] Last Admin: 05/16/22 20:05 Dose: 40 mg PHYSICAL EXAMINATION: GENERAL: The patient is alert and oriented x2, Well developed, well nourished. HEENT: Pupils are round and equally reacting to light. EOMI. no scleral icterus. No conjunctival pallor. Normocephalic, atraumatic. No pharyngeal erythema. No thyromegaly. CARDIOVASCULAR: S1 and S2 muffled PULMONARY: diminished breath sounds bilaterally with some scattered rhonchi noted. ABDOMEN: soft. Nontender on exam. non-distended, normoactive bowel sounds. No palpable organomegaly. MUSCULOSKELETAL: No joint swelling or deformity. EXTREMITIES: No cyanosis, clubbing, or pedal edema. NEUROLOGICAL: Gross neurological examination did not reveal any focal deficits. Diffuse weakness SKIN: No rashes. Assessment: Accelerated uncontrolled labile hypertension Severe bradycardia History of recent low back pain and disc herniation History of abdominal aortic aneurysm Multiple falls Generalized weakness History of hypertension Old right frontal infarct and CVA History of chronic obstructive pulmonary disease, not in exacerbation History of DVT GI prophylaxis DVT prophylaxis Full code Plan: Recommend to continue with current medications and management with cardiology and neurology following closely. Patient was maintained on beta blockers which as been discontinued as of now and recommend monitoring on telemetry Patient being evaluated by PT/OT therapy working on possible ECF versus home with home care Encouraged increased activity as tolerated and encouraged oral intake Will follow-up with us on along with social work about discharge planning and planning for possible discharge in the next 24-48 hours Due to multiple complex medical issues, prognosis is guarded The impression and plan of care has been dictated by Sheridan Ventura, nurse practitioner as directed. Dr. José MD I have performed a history and examination and MDM of this patient, discussed the same with the dictator, and agree with the dictator's assessment and plan as written ,documented as a scribe. Based on total visit time, I have performed more than 50% of the visit. Any additional findings or plans will be noted. Objective - Vital Signs Vital signs: Vital Signs Temp 97.7 F 05/16/22 19:21 Pulse 53 L 05/17/22 01:27 Resp 17 05/17/22 01:27 BP 138/67 05/16/22 19:21 Pulse Ox 94 L 05/16/22 19:21 FiO2 Intake & Output 05/16/22 05/16/22 05/17/22 06:59 18:59 06:59 Intake Total 354 Balance 354 Intake: Oral 354 Other: Voiding Method Toilet Toilet # Voids 1 1 1 - Labs CBC & Chem 7: 05/15/22 05:22 05/15/22 05:22
[2022-05-17] MEDS: PANTOPRAZOLE 40 MG TABLET PO SCH (06:26)
[2022-05-17 06:30] VITALS: RESP 18
[2022-05-17] MEDS: APIXABAN 2.5 MG TABLET PO SCH (08:35)
[2022-05-17] MEDS: ISOSORBIDE MONONITRATE ER 30 MG TAB.ER.24H PO SCH (08:35)
[2022-05-17] MEDS: FERROUS SULFATE 325 MG TAB PO SCH (08:35)
[2022-05-17] MEDS: ASPIRIN 81 MG PO SCH (08:35)
[2022-05-17] MEDS: CHOLECALCIFEROL 25 MCG (1000 IU) TABLET PO SCH (08:35)
[2022-05-17] MEDS: FUROSEMIDE 20 MG TAB PO SCH (08:35)
[2022-05-17] MEDS: DULoxetine HCL 30 MG CAPSULE.DR PO SCH (08:35)
--- NOTE | 2022-05-17 10:35 | P.PN ---
Subjective Progress Note Date: 05/17/22 History of present illness: This is an 87-year-old female patient of Dr. Tristan Lott with past medical history of COPD, previous strokes, carotid disease, hypertension, hyperlipidemia and chronic back pain with previous lumbar spine surgeries at [facility] and [facility]. We have been asked to see the patient regarding bradycardia and weakness. Patient has been previously evaluated in 2019 for bradycardia. Patient apparently was having difficulty ambulating on her own there was concern for urinary tract infection with generalized weakness and possible need for rehab. EMS found that the patient had heart rate in the 30s. In the emergency center, patient's heart rate was mostly in the 40s with 1 reading of 35. Blood pressure was quite elevated 188/71. Blood pressure this morning is at 135/66. Patient is status post hydralazine 100 mg by mouth 1. Patient was hospitalized earlier this month for multiple falls with generalized weakness and cardiology was not consulted on that hospitalization. Patient was found to have abdominal aortic aneurysm measuring 4.9 cm was seen by vascular surgery and was started on on metoprolol 12.5 mg twice daily. EKG sinus bradycardia of 45 bpm CAT scan of the brain revealed old right lateral frontal lobe infarct. Old left cerebellar hemisphere vertical infarct. Cerebral atrophy. Chronic white matter ischemia. CBC within normal limits. Electrolytes and renal function normal. Blood sugar 114. Troponin negative 3. TSH 1.470. Urinalysis negative for infection. Home cardiac medications: Eliquis 2.5 mg twice daily, Lasix 20 mg daily, Imdur 30 mg daily, Lopressor 12.5 mg twice daily, pravastatin 40 mg at bedtime. Echocardiogram 11/2019: EF 55-60%, moderate concentric left ventricle hypertrophy, grade 1 diastolic dysfunction, trace mitral regurgitation, mild tricuspid regurgitation. 05/16 Heart rate is improved after discontinuing Lopressor, heart rate has been in the 44-81 range. Blood pressure 163/71. Patient has been continued on eliquis. Echocardiogram reveals, 05/17 Blood pressure 178/77 but acceptable. Echocardiogram reveals normal left ventricular size and systolic function. Mild mitral with [id number] tricuspid regurgitation and moderate pulmonary hypertension. Technically difficult study. Aortic stenosis has been ruled out. There is aortic valve sclerosis without stenosis on echocardiogram. Physical examination: Gen: This is an 87-year-old black female, resting in bed and appears to be comfortable. No acute distress. VS: reviewed HEENT: Head is atraumatic, normocephalic. Pupils equal, round. Sclerae is anicteric. NECK: Supple. No JVD. . LUNGS: Clear to auscultation. No wheezes or rhonchi. No intercostal retractions. HEART: Regular rate and rhythm. 3/6 systolic murmur right sternal border ABDOMEN: Soft No tenderness. EXTREMITIES: No pedal edema. No calf tenderness. NEUROLOGICAL: Patient is awake, alert and oriented x3. Assessment: Generalized weakness Bradycardia improved after discontinuing Lopressor Suspect aortic stenosis has been ruled out Hypertension Hyperlipidemia Previous CVAs COPD Chronic back pain with previous back surgeries Abdominal aortic aneurysm 4.9 cm Plan: Resume patient's home cardiac medications except for Lopressor-continue to hold Patient is cleared from cardiology for discharge home and may follow-up with Dr. Lott in 1-2 weeks. Nurse practitioner note has been reviewed, I agree with documented findings and plan of care. Patient was seen and examined. Objective - Vital Signs Vital signs: Vital Signs Temp 97.5 F L 05/17/22 04:22 Pulse 79 05/17/22 04:22 Resp 18 05/17/22 04:22 BP 187/79 05/17/22 04:22 Pulse Ox 91 L 05/17/22 04:22 FiO2 Intake & Output 05/16/22 05/17/22 05/17/22 18:59 06:59 18:59 Intake Total 354 Balance 354 Intake: Oral 354 Other: Voiding Method Toilet # Voids 1 1 - Labs CBC & Chem 7: 05/15/22 05:22 05/15/22 05:22
--- NOTE | 2022-05-17 10:36 | P.PN ---
Subjective Progress Note Date: 05/16/22 History of present illness: This is an 87-year-old female patient of Dr. Tristan Lott with past medical history of COPD, previous strokes, carotid disease, hypertension, hyperlipidemia and chronic back pain with previous lumbar spine surgeries at [facility] and [facility]. We have been asked to see the patient regarding bradycardia and weakness. Patient has been previously evaluated in 2019 for bradycardia. Patient apparently was having difficulty ambulating on her own there was concern for urinary tract infection with generalized weakness and possible need for rehab. EMS found that the patient had heart rate in the 30s. In the emergency center, patient's heart rate was mostly in the 40s with 1 reading of 35. Blood pressure was quite elevated 188/71. Blood pressure this morning is at 135/66. Patient is status post hydralazine 100 mg by mouth 1. Patient was hospitalized earlier this month for multiple falls with generalized weakness and cardiology was not consulted on that hospitalization. Patient was found to have abdominal aortic aneurysm measuring 4.9 cm was seen by vascular surgery and was started on on metoprolol 12.5 mg twice daily. EKG sinus bradycardia of 45 bpm CAT scan of the brain revealed old right lateral frontal lobe infarct. Old left cerebellar hemisphere vertical infarct. Cerebral atrophy. Chronic white matter ischemia. CBC within normal limits. Electrolytes and renal function normal. Blood sugar 114. Troponin negative 3. TSH 1.470. Urinalysis negative for infection. Home cardiac medications: Eliquis 2.5 mg twice daily, Lasix 20 mg daily, Imdur 30 mg daily, Lopressor 12.5 mg twice daily, pravastatin 40 mg at bedtime. Echocardiogram 11/2019: EF 55-60%, moderate concentric left ventricle hypertrophy, grade 1 diastolic dysfunction, trace mitral regurgitation, mild tricuspid regurgitation. 05/16 Heart rate is improved after discontinuing Lopressor, heart rate has been in the 44-81 range. Blood pressure 163/71. Patient has been continued on eliquis. Echocardiogram reveals, Physical examination: Gen: This is an 87-year-old black female, resting in recliner and appears to be comfortable. No acute distress. VS: reviewed HEENT: Head is atraumatic, normocephalic. Pupils equal, round. Sclerae is anicteric. NECK: Supple. No JVD. . LUNGS: Clear to auscultation. No wheezes or rhonchi. No intercostal retractions. HEART: Regular rate and rhythm. 3/6 systolic murmur right sternal border ABDOMEN: Soft No tenderness. EXTREMITIES: No pedal edema. No calf tenderness. NEUROLOGICAL: Patient is awake, alert and oriented x3. Assessment: Generalized weakness Bradycardia Suspect aortic stenosis Hypertension Hyperlipidemia Previous CVAs COPD Chronic back pain with previous back surgeries Abdominal aortic aneurysm 4.9 cm Plan: Resume patient's home cardiac medications except for Lopressor-continue to hold Awaiting echocardiogram report Continue telemetry monitoring. Nurse practitioner note has been reviewed, I agree with documented findings and plan of care. Patient was seen and examined. Objective - Vital Signs Vital signs: Vital Signs Temp 98.1 F 05/16/22 02:55 Pulse 76 05/16/22 02:55 Resp 17 05/16/22 02:55 BP 122/55 05/16/22 02:55 Pulse Ox 97 05/16/22 02:55 FiO2 Intake & Output 05/15/22 05/16/22 05/16/22 18:59 06:59 18:59 Intake Total 236 Balance 236 Intake: Oral 236 Other: Voiding Method Toilet # Voids 1 1 - Labs CBC & Chem 7: 05/15/22 05:22 05/15/22 05:22 Labs: Abnormal Lab Results - Last 24 Hours (Table) 05/15/22 05/15/22 Range/Units 05:22 05:22 MCHC 31.0 L (32.0-37.0) g/dL RDW 15.1 H (11.5-14.5) % Glucose 114 H (70-110) mg/dL
[2022-05-17 14:27] VITALS: BP 146/68; PULSE 86; TEMP 98.6
--- NOTE | 2022-05-18 15:29 | P.DS ---
Providers Date of admission: 05/15/22 13:19 Expected date of discharge: 05/17/22 Attending physician: Katelynn Carbone MD Consults: 05/15/22 09:46 Consult Physician Urgent Consulting Provider: Ascencion Delgado Consult Reason/Comments: bradycardia, weakness Do you want consulting provider notified?: Yes 05/15/22 09:47 Consult Physician Urgent Consulting Provider: Osbaldo Hart Consult Reason/Comments: weak, old stroke Do you want consulting provider notified?: Yes Primary care physician: Tacos Yifan [facility] Course: Final diagnosis Accelerated uncontrolled labile hypertension Severe bradycardia History of recent low back pain and disc herniation History of abdominal aortic aneurysm Multiple falls Generalized weakness History of hypertension Old right frontal infarct and CVA History of chronic obstructive pulmonary disease, not in exacerbation History of DVT GI prophylaxis DVT prophylaxis Full code Discharge disposition Patient is being discharged in a stable condition with guarded prognosis to home. Patient will follow-up with Dr. Saha in the outpatient setting upon discharge. Patient is to follow-up with cardiology outpatient as scheduled. Patient instructed to continue holding beta noam until follow-up. Total time taken is greater than 35 minutes. Hospital course This is a 87-year-old female who was recently admitted with hypertension along with bradycardia with generalized weakness. Patient evaluated by cardiology recommending holding beta noam and outpatient follow-up. Patient was seen and evaluated by physical therapy recommending home with home care. Would recommend close outpatient follow-up with primary care provider this week. Patient has been cleared by cardiology please review cardiology notes for further HPI. Currently no reports of chest pain, shortness of breath, or palpitations. Patient is afebrile. No reports of nausea or vomiting and patient is tolerating diet. Patient will be \discharged home today. Guarded prognosis Physical exam: Gen: This is a 87-year-old female who is awake, alert and oriented 2, thin built, elderly appearing HEENT: Head is atraumatic, normocephalic. Pupils equal, round. Sclerae is anicteric. NECK: Supple. No JVD. No lymphadenopathy. No thyromegaly. LUNGS: Diminished breath sounds bilaterally with no wheezes or rhonchi. No intercostal retractions. HEART S1, S2 are muffled ABDOMEN: Soft. Bowel sounds are present. No masses. No tenderness. EXTREMITIES: No pedal edema. No calf tenderness. NEUROLOGICAL: Patient is awake, alert and oriented x2. Cranial nerves 2 through 12 are grossly intact. Diffusely weak Please refer to medication reconciliation sheet for a list of medications. The impression and plan of care has been dictated by Sheridan Ventura, Nurse Practitioner as directed. Dr. José MD I have performed a history and examination and MDM of this patient, discussed the same with the dictator, and agree with the dictator's assessment and plan as written ,documented as a scribe. Based on total visit time, I have performed more than 50% of the visit. Patient Condition at Discharge: Stable Plan - Discharge Summary New Discharge Prescriptions: New Aspirin 81 mg PO DAILY 30 Days #30 tab Continue Pravastatin Sodium [Pravachol] 40 mg PO HS Ascorbic Acid [Vitamin C with Stacy Hips] 500 mg PO HS Ferrous Sulfate [Iron (65 MG Elemental)] 325 mg PO DAILY Cholecalciferol [Vitamin D3 (25 Mcg = 1000 Iu)] 1,000 unit PO DAILY Pantoprazole [Protonix] 40 mg PO DAILY DULoxetine HCL [Cymbalta] 30 mg PO DAILY Albuterol Inhaler [Ventolin Hfa Inhaler] 2 puff INHALATION RT-Q6H PRN PRN Reason: Shortness Of Breath Isosorbide Mononitrate ER [Imdur] 30 mg PO DAILY Furosemide [Lasix] 20 mg PO DAILY Melatonin 1 mg PO HS Denosumab [Prolia] 60 mg SQ Q180D Apixaban [Eliquis] 2.5 mg PO BID Latanoprost [Latanoprost 0.005%] 1 drop BOTH EYES HS Discontinued Metoprolol Tartrate [Lopressor] 12.5 mg PO BID 30 Days #60 tablet Discharge Medication List Pravastatin Sodium [Pravachol] 40 mg PO HS 08/04/13 [History] Ascorbic Acid [Vitamin C with Stacy Hips] 500 mg PO HS 02/22/16 [History] Ferrous Sulfate [Iron (65 MG Elemental)] 325 mg PO DAILY 02/05/17 [History] Cholecalciferol [Vitamin D3 (25 Mcg = 1000 Iu)] 1,000 unit PO DAILY 04/11/18 [History] Pantoprazole [Protonix] 40 mg PO DAILY 04/11/18 [History] Albuterol Inhaler [Ventolin Hfa Inhaler] 2 puff INHALATION RT-Q6H PRN 04/29/22 [History] Apixaban [Eliquis] 2.5 mg PO BID 04/29/22 [History] DULoxetine HCL [Cymbalta] 30 mg PO DAILY 04/29/22 [History] Denosumab [Prolia] 60 mg SQ Q180D 04/29/22 [History] Furosemide [Lasix] 20 mg PO DAILY 04/29/22 [History] Isosorbide Mononitrate ER [Imdur] 30 mg PO DAILY 04/29/22 [History] Latanoprost [Latanoprost 0.005%] 1 drop BOTH EYES HS 04/29/22 [History] Melatonin 1 mg PO HS 04/29/22 [History] Aspirin 81 mg PO DAILY 30 Days #30 tab 05/17/22 [Rx] Follow up Appointment(s)/Referral(s): [facility] [NON-STAFF] - 1 Week Tacos Saha MD [Primary Care Provider] - 05/26/22 10:30 am Len Lott MD [STAFF PHYSICIAN] - 05/29/22 2:30 pm Activity/Diet/Wound Care/Special Instructions: Activity Limited until follow-up Follow-up with primary care provider on discharge Follow-up with cardiology outpatient Continue holding metoprolol for now Continue heart healthy diet Discharge Disposition: HOME WITH HOME HEALTH SERVICES
== END 2022-05-17 15:03 | disposition home health service (06) | DRG 292 ==
LOC: EC 16:38 → 6NMEDSUR 18:54 → OBSVTOIN 05-15 13:19
PROVIDERS: ADMIT Internal Medicine; ATTEND Internal Medicine
DX: I11.0 Hypertensive heart disease with heart failure (principal); I69.954 Hemiplegia and hemiparesis following unspecified cerebrovascular disease affecting left non-dominant side; I27.20 Pulmonary hypertension, unspecified; I35.8 Other nonrheumatic aortic valve disorders; I71.40 Abdominal aortic aneurysm, without rupture, unspecified; J43.9 Emphysema, unspecified; R29.6 Repeated falls; M51.26 Other intervertebral disc displacement, lumbar region; E78.5 Hyperlipidemia, unspecified; G89.29 Other chronic pain; I50.9 Heart failure, unspecified; R01.1 Cardiac murmur, unspecified; I48.91 Unspecified atrial fibrillation; F41.9 Anxiety disorder, unspecified; R00.1 Bradycardia, unspecified; Z28.310 Unvaccinated for COVID-19; Z79.01 Long term (current) use of anticoagulants; Z87.891 Personal history of nicotine dependence; Z85.3 Personal history of malignant neoplasm of breast; Z86.718 Personal history of other venous thrombosis and embolism; Z79.899 Other long term (current) drug therapy; Z86.79 Personal history of other diseases of the circulatory system; Z82.49 Family history of ischemic heart disease and other diseases of the circulatory system
CPT/HCPCS: 36415; 70450; 80048; 80053; 81003; 82607; 82746; 83036; 83605; 83735; 84443; 84484; 85025; 85610; 85730; 93005; 93306; 93880; 94760; 95816; 99285

== ENCOUNTER 2022-07-20 15:54 | Inpatient (IN) | payer MEDICARE, BC ==
--- NOTE | 2022-07-20 16:05 | ED ---
General Adult HPI - General Stated complaint: poss TIA Time Seen by Provider: 07/20/22 15:55 Source: patient, RN notes reviewed, old records reviewed - History of Present Illness Initial comments: This is an 87-year-old female presents emergency Department with a past medical history significant for TIAs. Patient states EMS reported that the patient was having some expressive aphasia when they got her last month 20 minutes and then it completely resolved. Patient was aware that she was having expressive aphasia. There was no numbness no weakness was no headache there is no blurred vision and currently the patient has no complaints whatsoever. Patient denies any recent fever chills or cough per patient denies any chest pain difficulty breathing shortest breath. Patient states she's had mini strokes in the past as well. Patient denies any diabetes. Patient's sugar was 90 at the scene. - Related Data Home Medications Medication Instructions Recorded Confirmed Pravastatin Sodium [Pravachol] 40 mg PO HS 08/04/13 05/14/22 Ascorbic Acid [Vitamin C with Stacy 500 mg PO HS 02/22/16 05/14/22 Hips] Ferrous Sulfate [Iron (65 MG 325 mg PO DAILY 02/05/17 05/14/22 Elemental)] Cholecalciferol [Vitamin D3 (25 1,000 unit PO DAILY 04/11/18 05/14/22 Mcg = 1000 Iu)] Pantoprazole [Protonix] 40 mg PO DAILY 04/11/18 05/14/22 Albuterol Inhaler [Ventolin Hfa 2 puff INHALATION RT-Q6H PRN 04/29/22 05/14/22 Inhaler] Apixaban [Eliquis] 2.5 mg PO BID 04/29/22 05/14/22 DULoxetine HCL [Cymbalta] 30 mg PO DAILY 04/29/22 05/14/22 Denosumab [Prolia] 60 mg SQ Q180D 04/29/22 05/14/22 Furosemide [Lasix] 20 mg PO DAILY 04/29/22 05/14/22 Isosorbide Mononitrate ER [Imdur] 30 mg PO DAILY 04/29/22 05/14/22 Latanoprost [Latanoprost 0.005%] 1 drop BOTH EYES HS 04/29/22 05/14/22 Melatonin 1 mg PO HS 04/29/22 05/14/22 Previous Rx's Medication Instructions Recorded Aspirin 81 mg PO DAILY 30 Days #30 tab 05/17/22 Allergies Allergy/AdvReac Type Severity Reaction Status Date / Time No Known Allergies Allergy Verified 05/14/22 18:49 Review of Systems ROS Statement: Those systems with pertinent positive or pertinent negative responses have been documented in the HPI. ROS Other: All systems not noted in ROS Statement are negative. 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,, emphysema; hypoglycemia, hx breast cancer, History of Any Multi-Drug Resistant Organisms: None Reported Past Surgical History: Back Surgery, Breast Surgery, Cholecystectomy, Heart Catheterization Additional Past Surgical History / Comment(s): L SUBCLAVIAN ARTERY BYPASS, Rt CAROTID ENDARTECTOMY, rt breast lumpectomy Past Anesthesia/Blood Transfusion Reactions: No Reported Reaction Additional Past Anesthesia/Blood Transfusion Reaction / Comment(s): PT RECIEVED BLOOD TRANSFUSION Past Psychological History: Anxiety Smoking Status: Former smoker Past Alcohol Use History: None Reported Past Drug Use History: None Reported - Past Family History Brother(s) Family Medical History: Cancer Sister(s) Family Medical History: Cancer Mother Family Medical History: Coronary Artery Disease (CAD) Additional Family Medical History / Comment(s): enlarged heart Father Family Medical History: Coronary Artery Disease (CAD), CVA/TIA General Exam - General Exam Comments Initial Comments: GENERAL: Patient is well-developed and well-nourished. Patient is nontoxic and well- hydrated and is in no acute distress. ENT: Neck is soft and supple. No significant lymphadenopathy is noted. Oropharynx is clear. Moist mucous membranes. Neck has full range of motion without eliciting any pain. EYES: The sclera were anicteric and conjunctiva were pink and moist. Extraocular movements were intact and pupils were equal round and reactive to light. Eyelids were unremarkable. PULMONARY: Unlabored respirations. Good breath sounds bilaterally. No audible rales rhonchi or wheezing was noted. CARDIOVASCULAR: There is a regular rate and rhythm without any murmurs gallops or rubs. ABDOMEN: Soft and nontender with normal bowel sounds. SKIN: Skin is clear with no lesions or rashes and otherwise unremarkable. NEUROLOGIC: Patient is alert and oriented x3. Cranial nerves II through XII are grossly intact. Motor and sensory are also intact. Normal speech, volume and content. Symmetrical smile. NIH is currently 0 MUSCULOSKELETAL: Normal extremities with adequate strength and full range of motion. LYMPHATICS: No significant lymphadenopathy is noted PSYCHIATRIC: Normal psychiatric evaluation. Course Vital Signs 07/20/22 16:06 Temperature 96.8 F L Pulse Rate 51 L Respiratory 18 Rate Blood Pressure 145/67 O2 Sat by Pulse 95 Oximetry Medical Decision Making - Medical Decision Making Was pt. sent in by a medical professional or institution (, PA, BUTADIENE CONVERTER OPERATOR, urgent care, hospital, or senior living...) When possible be specific @ -[No] Did you speak to anyone other than the patient for history (EMS, parent, family, police, friend...)? What history was obtained from this source @ -EMS gave the history from the time they picked her up to the time they arrived at the emergency department Did you review nursing and triage notes (agree or disagree)? Why? @ -[I reviewed and agree with nursing and triage notes] Were old charts reviewed (outside hosp., previous admission, EMS record, old EKG, old radiological studies, urgent care reports/EKG's, senior living records)? Report findings @ -I reviewed prior charts prior CTs and prior lab work on this patient Differential Diagnosis (chest pain, altered mental status, abdominal pain women, abdominal pain men, vaginal bleeding, weakness, fever, dyspnea, syncope, headache, dizziness, GI bleed, back pain, seizure, CVA, palpatations, mental health, musculoskeletal)? @ -Differential CVA EKG interpreted by me (3pts min.). @ -[As above] X-rays interpreted by me (1pt min.). @ -Chest x-ray was interpreted by myself and showed no acute abnormality. CT interpreted by me (1pt min.). @ -CT of the brain showed no acute abnormality. CT of the head and neck showed no abnormalities significant enough to cause symptoms the patient was racing today U/S interpreted by me (1pt. min.). @ -[None done] What testing was considered but not performed or refused? (CT, X-rays, U/S, labs)? Why? @ -[None] What meds were considered but not given or refused? Why? @ -[None] Did you discuss the management of the patient with other professionals (professionals i.e. , PA, BUTADIENE CONVERTER OPERATOR, lab, RT, psych nurse, social media specialist, surveillance camera technician, teacher, protocol officer, shoe caser)? Give summary @ -[facility] hospitalist agreed to admit the patient admitted the patient wrote admitting orders Was smoking cessation discussed for >3mins.? @ -[No] Was critical care preformed (if so, how long)? @ -[No] Were there social determinants of health that impacted care today? How? ([place] elessness, low income, unemployed, alcoholism, drug addiction, transportation, low edu. Level, literacy, decrease access to med. care, long-term, rehab)? @ -[No] Was there de-escalation of care discussed even if they declined (Discuss DNR or withdrawal of care, Hospice)? DNR status @ -[No] What co-morbidities impacted this encounter? (DM, HTN, Smoking, COPD, CAD, Cancer, CVA, ARF, Chemo, Hep., AIDS, mental health diagnosis, sleep apnea, morbid obesity)? @ -[None] Was patient admitted / discharged? Hospital course, mention meds given and route, prescriptions, significant lab abnormalities, going to OR and other pertinent info. @ -Patient had no symptoms while in the emergency department her symptoms completely resolved before arrival. CAT scan and CTA of the head and neck were all normal. I spoke with the surgeon was consulted agreed to admit the patient admitted the patient wrote admitting orders. Undiagnosed new problem with uncertain prognosis? @ -[No] Drug Therapy requiring intensive monitoring for toxicity (Heparin, Nitro, Insulin, Cardizem)? @ -[No] Were any procedures done? @ -[No] Diagnosis/symptom? @ -TIA Acute, or Chronic, or Acute on Chronic? @ -Acute Uncomplicated (without systemic symptoms) or Complicated (systemic symptoms)? @ -Complicated Side effects of treatment? @ -[No] Exacerbation, Progression, or Severe Exacerbation? @ -[No] Poses a threat to life or bodily function? How? (Chest pain, [place], VA, pneumonia, PE, COPD, DKA, ARF, appy, cholecystitis, CVA, Diverticulitis, Homicidal, Suicidal, threat to staff... and all critical care pts) @ -[No] - Lab Data Result diagrams: 07/20/22 16:12 07/20/22 16:12 Lab Results 07/20/22 07/20/22 07/20/22 Range/Units 16:12 16:12 16:12 WBC 7.1 (3.8-10.6) k/uL RBC 5.32 (3.80-5.40) m/uL Hgb 14.9 (11.4-16.0) gm/dL Hct 49.1 H (34.0-46.0) % MCV 92.2 (80.0-100.0) fL MCH 28.0 (25.0-35.0) pg MCHC 30.3 L (31.0-37.0) g/dL RDW 15.2 (11.5-15.5) % Plt Count 228 (150-450) k/uL MPV 6.6 Neutrophils % 37 % Lymphocytes % 50 % Monocytes % 7 % Eosinophils % 2 % Basophils % 1 % Neutrophils # 2.6 (1.3-7.7) k/uL Lymphocytes # 3.5 (1.0-4.8) k/uL Monocytes # 0.5 (0-1.0) k/uL Eosinophils # 0.1 (0-0.7) k/uL Basophils # 0.1 (0-0.2) k/uL Hypochromasia Moderate PT 10.9 (9.0-12.0) sec INR 1.0 (<1.2) APTT 24.4 (22.0-30.0) sec Sodium 139 (137-145) mmol/L Potassium 4.7 (3.5-5.1) mmol/L Chloride 100 (98-107) mmol/L Carbon Dioxide 28 (22-30) mmol/L Anion Gap 11 mmol/L BUN 18 H (7-17) mg/dL Creatinine 0.81 (0.52-1.04) mg/dL Est GFR (CKD-EPI)AfAm 76 (>60 ml/min/1.73 sqM) Est GFR (CKD-EPI)NonAf 66 (>60 ml/min/1.73 sqM) Glucose 66 L (74-99) mg/dL Calcium 9.5 (8.4-10.2) mg/dL Total Bilirubin 0.5 (0.2-1.3) mg/dL AST 31 (14-36) U/L ALT 18 (4-34) U/L Alkaline Phosphatase 47 (38-126) U/L Creatine Kinase 164 H (30-135) U/L Troponin I (0.000-0.034) ng/mL Total Protein 7.3 (6.3-8.2) g/dL Albumin 4.3 (3.5-5.0) g/dL 07/20/22 Range/Units 16:12 WBC (3.8-10.6) k/uL RBC (3.80-5.40) m/uL Hgb (11.4-16.0) gm/dL Hct (34.0-46.0) % MCV (80.0-100.0) fL MCH (25.0-35.0) pg MCHC (31.0-37.0) g/dL RDW (11.5-15.5) % Plt Count (150-450) k/uL MPV Neutrophils % % Lymphocytes % % Monocytes % % Eosinophils % % Basophils % % Neutrophils # (1.3-7.7) k/uL Lymphocytes # (1.0-4.8) k/uL Monocytes # (0-1.0) k/uL Eosinophils # (0-0.7) k/uL Basophils # (0-0.2) k/uL Hypochromasia PT (9.0-12.0) sec INR (<1.2) APTT (22.0-30.0) sec Sodium (137-145) mmol/L Potassium (3.5-5.1) mmol/L Chloride (98-107) mmol/L Carbon Dioxide (22-30) mmol/L Anion Gap mmol/L BUN (7-17) mg/dL Creatinine (0.52-1.04) mg/dL Est GFR (CKD-EPI)AfAm (>60 ml/min/1.73 sqM) Est GFR (CKD-EPI)NonAf (>60 ml/min/1.73 sqM) Glucose (74-99) mg/dL Calcium (8.4-10.2) mg/dL Total Bilirubin (0.2-1.3) mg/dL AST (14-36) U/L ALT (4-34) U/L Alkaline Phosphatase (38-126) U/L Creatine Kinase (30-135) U/L Troponin I <0.012 (0.000-0.034) ng/mL Total Protein (6.3-8.2) g/dL Albumin (3.5-5.0) g/dL Disposition Clinical Impression: Transient cerebral ischemia Disposition: ADMITTED IP TO THIS HOSP Referrals: Tacos Saha MD [Primary Care Provider] - 1-2 days Time of Disposition: 18:56
[2022-07-20 16:31] LABS: Basophils # (A) 0.1 k/uL (0-0.2); Basophils % (A) 1 %; Eosinophils # (A) 0.1 k/uL (0-0.7); Eosinophils % (A) 2 %; HCT 49.1 % (34.0-46.0); HGB 14.9 gm/dL (11.4-16.0); Hypochromasia Moderate; Lymphocytes # (A) 3.5 k/uL (1.0-4.8); Lymphocytes % (A) 50 %; MCHC 30.3 g/dL (31.0-37.0); MCV 92.2 fL (80.0-100.0); Mean Platelet Volume 6.6; Monocytes # (A) 0.5 k/uL (0-1.0); Monocytes % (A) 7 %; Neutrophils # (A) 2.6 k/uL (1.3-7.7); Neutrophils % (A) 37 %; Platelet Count 228 k/uL (150-450); RBC 5.32 m/uL (3.80-5.40); RDW 15.2 % (11.5-15.5); WBC 7.1 k/uL (3.8-10.6)
[2022-07-20 16:40] LABS: Partial Thromboplastin Time 24.4 sec (22.0-30.0); Prothrombin Time 10.9 sec (9.0-12.0)
[2022-07-20 16:56] LABS: Albumin 4.3 g/dL (3.5-5.0); Calcium 9.5 mg/dL (8.4-10.2); Potassium 4.7 mmol/L (3.5-5.1); Total Bilirubin 0.5 mg/dL (0.2-1.3); Total Protein 7.3 g/dL (6.3-8.2)
--- NOTE | 2022-07-20 17:55 | XR ---
EXAMINATION TYPE: XR chest 2V DATE OF EXAM: 07/20/2022 COMPARISON: 12/12/2019 INDICATION: TECHNIQUE: Frontal and lateral views of the chest are obtained. FINDINGS: The heart size is borderline in size. The pulmonary vasculature is normal. There is some right lower lobe infiltrate, better visualized lateral projection. Correlate for atelec tasis or pneumonia.. IMPRESSION: 1. Left lower lobe infiltrate. Correlate for atelectasis or pneumonia
--- NOTE | 2022-07-20 17:58 | CT ---
EXAMINATION TYPE: CT brain wo con DATE OF EXAM: 07/20/2022 COMPARISON: 05/15/2022 INDICATION: Neuro deficits, hx of stroke. Suspect TIA. Not called a code stroke DLP: 1103.6 mGycm, Automated exposure control for dose reduction was used. CONTRAST: None CT of the brain is performed utilizing 3 mm thick sections through the posterior fossa and 3 mm thick sections through the remaining calvarium. Study is performed within 24 hours of arrival to the hosp ital. No abnormal hyperdensity is present to suggest an acute intracranial hemorrhage. No mass lesion is evident. No acute infarcts are evident. There appears to be an old lacunar infarct within the right posterior basal ganglion. There is an old infarct in the right frontal parietal junction. Periventricular white matter hypodensity is present, likely on the basis of chronic white matter ischemic changes. Ventricles and sulci are prominent for the patient age. Paranasal sinuses and mastoid air cells within the [id number] are clear. IMPRESSIONS: 1. Old left frontal parietal infarct and old right basal ganglion lacunar infarct, present previous ly. 2. Atrophy with chronic appearing periventricular white matter ischemic changes. 3. No acute intracranial process. Follow-up MRI can be performed as clinically indicated.
--- NOTE | 2022-07-20 18:19 | CT ---
EXAMINATION TYPE: CT angio head neck DATE OF EXAM: 07/20/2022 HISTORY: Neuro deficits, hx of stroke. Suspect TIA. Not called a code stroke COMPARISON: None CT DLP: 521.8 mGycm. Automated Exposure Control for Dose Reduction was Utilized. TECHNIQUE: CTA scan of the neck is performed with IV Contrast, patient injected with 65 mL of Isovue 370, axial images are obtained, coronal and sagittal reformatted images are reviewed. Three-D recons tructed images are created on an independent workstation and reviewed. Source images are reviewed. FINDINGS: Carotid/Vascular Structures: There is a three-vessel arch. Vertebral arteries are codominant. Common carotid arteries bifurcate into internal and external carotid arteries. Atheromatous plaquing of the left carotid bifurcation has stenosis measuring 46%, approaching 50%, currently mild stenosis. Milder narrowing is present at the right internal carotid artery from plaquing measuring approximately 35%. Vertebral arteries and internal carotid arteries are patent to the skull base. Cervical of [place]: Vertebral basilar system appears normal. Posterior cerebral vasculature is unrema rkable. Internal carotid arteries bifurcate normally into A1 and M1 segments. A2 segments are normal. The anterior communicating artery is patent. Posterior communicating arteries are not identified. No te is made of diminished vascularity to the prior right frontal parietal infarct. IMPRESSION: 1. Mild stenosis bilateral carotid bifurcations. This is approaching 50% on the left 2. No acute changes [place] of [place]. NASCET criteria was used in interpretation of this exam?
[2022-07-20] MEDS ORDERED: ASPIRIN 325 MG TAB PO STA (18:56)
[2022-07-20 20:33] LABS: Glucose,Whole Blood 97 mg/dL (70-110)
[2022-07-21 05:43] LABS: Glucose,Whole Blood 108 mg/dL (70-110)
[2022-07-21] MEDS ORDERED: ALBUTEROL HFA INHALER INHALATION PRN (08:18)
[2022-07-21] MEDS ORDERED: Acetaminophen-Codeine 300-30mg TAB PO PRN (08:18)
[2022-07-21] MEDS ORDERED: DENOSUMAB 60 MG/ML 1 ML SYRINGE SQ SCH (08:30)
[2022-07-21] MEDS ORDERED: ASPIRIN 325 MG TAB PO SCH (09:00)
[2022-07-21] MEDS: CHOLECALCIFEROL 25 MCG (1000 IU) TABLET PO SCH (09:05)
[2022-07-21] MEDS: FUROSEMIDE 20 MG TAB PO SCH (09:05)
[2022-07-21] MEDS: METOPROLOL TARTRATE 12.5 MG TAB PO SCH ×2 (09:05→22:33)
[2022-07-21] MEDS: ISOSORBIDE MONONITRATE ER 30 MG TAB.ER.24H PO SCH (09:05)
[2022-07-21] MEDS: FERROUS SULFATE 325 MG TAB PO SCH (09:05)
[2022-07-21] MEDS: APIXABAN 2.5 MG TABLET PO SCH ×2 (09:05→22:21)
[2022-07-21] MEDS: ASPIRIN 81 MG PO SCH (09:05)
[2022-07-21] MEDS: PANTOPRAZOLE 40 MG TABLET PO SCH ×2 (09:30→09:33)
[2022-07-21] MEDS: DULoxetine HCL 30 MG CAPSULE.DR PO SCH (09:30)
[2022-07-21 10:27] LABS: Chol/HDL Ratio 3.52 Ratio; LDL Cholesterol,Calculated 99.4 mg/dL (0.0-131.0); VLDL Calculation 17.96 mg/dL (5.00-40.00)
[2022-07-21] MEDS: levETIRAcetam 250 MG TAB PO SCH ×2 (13:03→22:21)
--- NOTE | 2022-07-21 13:06 | P.CNNES ---
History of Present Illness Consult date: 07/21/22 Requesting physician: Ar Neumann Reason for Consult: TIA History of Present Illness: This is an 87-year-old woman with history of strokes, atrial fibrillation on eliquis, she of right CEA, hypertension, hyperlipidemia who presented emergency department because of difficulty getting her words out and left hand shaking. Patient is accompanied with her son who helps with some of the history. Patient stated that yesterday in the late afternoon she had an episode of left hand shaking that was uncontrollable and that was brief and she did not have any loss of consciousness, urinary or bowel incontinence. She stated this was the first episode she had this. Her son stated that yesterday she had that difficulty getting her words out and was slurring and the episode lasted for about 30 minutes and it happened between L4 to 4 30 p.m. She denies of any focal weakness, numbness. She stated that she is compliant taking her eliquis 2.5mg bid and ASA 81mg daily. She feels back to baseline. She denies any history of seizure. She denies follow-up with a neurologist as an outpatient. Of note, she was seen last by Dr. Peck on 05/16/[address] Peck felt that the patient had the acute delirium. She had a CT of the head and there is no acute or subacute ischemia. Dr. Peck did an EEG and he felt minimal background slowing. Maybe consider normal of the patient's age. Although mild encephalopathy cannot be ruled out. Carotid duplex does not reveal any significant stenosis. Please refer to his further details. Some other workup during this hospital visit consisted of: Calcium, sodium, creatinine are within normal limits POC glucose 66 which is considered the slightly low in the normal supposed to be between 74-99. Further glucose is within normal limits. Lipid panel is triglyceride of 89, cholesterol is 164, LDLs 99 and HDL is 46. CT of the head is reported as old left frontal parietal and right basal ganglia lacunar infarct present previously. Atrophy with chronic appearing paraventricular white matter ischemic changes. No acute intracranial process. I personally reviewed the CT and reading radiologist misreported as a old left frontal which is suppose to be old right frontal. Agree the patient has old right basal ganglia. Patient will also has old left temporal/cerebellar stroke. The angiography of the head and neck is reported as mild stenosis bilateral carotid bifurcation. There is approaching 50% on the left. No acute changes [place] of [place]. Review of Systems Review of system: The 12 point system was reviewed and apparent positive and negative per HPI. 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 Smoking Status: Former smoker Past Alcohol Use History: None Reported Additional Past Alcohol Use History / Comment(s): 1 PPD STARTED SMOKING AT AGE 15 QUIT IN 1984 SMOKED 1PPD Past Drug Use History: None Reported - Past Family History Brother(s) Family Medical History: Cancer Sister(s) Family Medical History: Cancer Mother Family Medical History: Coronary Artery Disease (CAD) Additional Family Medical History / Comment(s): enlarged heart Father Family Medical History: Coronary Artery Disease (CAD), CVA/TIA Medications and Allergies Home Medications Medication Instructions Recorded Confirmed Type Pravastatin Sodium [Pravachol] 40 mg PO HS 08/04/13 07/20/22 History Ascorbic Acid [Vitamin C with Stacy 500 mg PO HS 02/22/16 07/20/22 History Hips] Ferrous Sulfate [Iron (65 MG 325 mg PO DAILY 02/05/17 07/20/22 History Elemental)] Cholecalciferol [Vitamin D3 (25 25 mcg PO DAILY 04/11/18 07/20/22 History Mcg = 1000 Iu)] Pantoprazole [Protonix] 40 mg PO DAILY 04/11/18 07/20/22 History Albuterol Inhaler [Ventolin Hfa 2 puff INHALATION RT-Q6H PRN 04/29/22 07/20/22 History Inhaler] Apixaban [Eliquis] 2.5 mg PO BID 04/29/22 07/20/22 History DULoxetine HCL [Cymbalta] 30 mg PO DAILY 04/29/22 07/20/22 History Denosumab [Prolia] 60 mg SQ Q180D 04/29/22 07/20/22 History Furosemide [Lasix] 20 mg PO DAILY 04/29/22 07/20/22 History Isosorbide Mononitrate ER [Imdur] 30 mg PO DAILY 04/29/22 07/20/22 History Latanoprost [Latanoprost 0.005%] 1 drop BOTH EYES HS 04/29/22 07/20/22 History Melatonin 1 mg PO HS 04/29/22 07/20/22 History Aspirin 81 mg PO DAILY 30 Days #30 tab 05/17/22 07/20/22 Rx Acetaminophen-Codeine 300-30mg 1 tab PO BID PRN 07/20/22 07/20/22 History [Tylenol w/codeine #3] Metoprolol Tartrate [Lopressor] 12.5 mg PO BID 07/20/22 07/20/22 History Allergies Allergy/AdvReac Type Severity Reaction Status Date / Time No Known Allergies Allergy Verified 07/20/22 18:53 Physical Examination - Vital Signs Vital Signs: Vital Signs Temp Pulse Pulse Resp BP BP Pulse Ox 07/21/22 07:18 97.8 F 82 18 189/106 96 07/21/22 02:00 97.2 F L 58 L 13 152/68 96 07/20/22 20:30 48 L 16 105/67 98 07/20/22 20:00 97.7 F 47 L 16 157/60 97 07/20/22 16:06 96.8 F L 51 L 18 145/67 95 Intake and Output 07/20/22 07/21/22 07/21/22 22:59 06:59 14:59 Intake Total 118 Balance 118 Intake: Oral 118 Other: Voiding Method Toilet # Voids 1 Weight 63.503 kg GENERAL: The patient is sitting in a recliner chair and is not in acute d istress. CHEST: No edema in lowers. LUNG: Not labored breathing. NEUROLOGICAL: Higher mental function: The patient is awake, alert, oriented to self, place and time. Patient is following commands. No aphasia and no neglect. Cranial nerves: The pupils are round, equal and reactive to light and acc ommodation. Visual [place] are full to confrontation throughout. Extraocular movement is intact no nystagmus is noted. Facial sensation is normal to touch throughout. The facial strength is normal throughout. Hearing is mildly to moderately decreased bilaterally to hand rub. Tongue is midline and moved [id number] without any difficulty. No dysarthria is noted. Shoulder shrug is normal bilaterally. Motor: The strength is left arm exttension is 4+ to 5-. Otherwise 5 over 5 throughout. Normal tone and bulk. Cerebellum: Normal finger to nose bilaterally. Sensation: Sensation is normal to touch throughout. Reflexes (right/left): 1+ throughout-. Plantars are mute bilaterally. Results - Laboratory Findings CBC and BMP: 07/20/22 16:12 07/20/22 16:12 Abnormal Lab Findings: Abnormal Labs 07/20/22 07/20/22 16:12 16:12 Hct 49.1 H MCHC 30.3 L BUN 18 H Glucose 66 L Creatine Kinase 164 H Assessment and Plan Assessment: Acute episode of of left hand onto trouble tremor then later had episode of aphasia. I feel probable focal seizure especially with history of old stroke that increase risk for seizures. In our facility patient had hypoglycemia as low as 66 which can the mask stroke like symptoms. History of old stroke in the right frontal vasoganglia as well as the left temporal/cerebellar region History of atrial fibrillation on eliquis and ASA History of right CEA Pretension Hyperlipidemia Chronic back pain History of breast cancer Plan: Ordered routine EEG to rule out active seizure or discharges. Patient had an EEG about 2 months ago and that was negative for any seizure discharges it's reported I placed the patient on Keppra 250 mg 1 tablet twice a day for concern of seizure. The son wanted her to be on the lowest dose. She continues to have uncontrollable tremor then the recommend going up to 500 mg every 12 hours. Patient and her son was notified of the side effects of the Keppra at of moodiness/behavioral. Recommend MRI of the brain without as an outpatient. Today there is no availability for her to have MRI and the son would like it to have it done as an outpatient. This is to be addressed by her primary care physician or if she's followed up with the neurologist that could be addressed by them as well. Continue Eliquis 2.5mg bid and home dose of ASA 81mg daily. She on Pravastatin 40mg qhs. Continue objects On cardiac monitoring PT OT and CORRECTIONAL SUBSTANCE ABUSE COUNSELOR are consulted We'll defer the rest of the medical measure the primary team For DVT prophylaxis on Eliquis. If EEG is negative and does not reveal any seizure or discharges then patient is clear for discharge from neurological perspective. Recommend the patient to follow-up with a neurologist as an outpatient within 1- 2 weeks. Plan discussed with the patient and her son was at bedside Thank you for the consultation UPDATE: Routine EEG is normal. Time with Patient: Greater than 30
[2022-07-21 20:11] LABS: Glucose,Whole Blood 130 mg/dL (70-110)
[2022-07-21] MEDS ORDERED: MELATONIN 1 MG TAB PO SCH (21:00)
[2022-07-21] MEDS ORDERED: PRAVASTATIN SODIUM 40 MG TAB PO SCH (21:00)
[2022-07-21] MEDS ORDERED: LATANOPROST 0.005% OPHTH DROPS 2.5 ML BTL BOTH EYES SCH (21:00)
[2022-07-21] MEDS ORDERED: ASCORBIC ACID 500 MG TAB PO SCH (21:00)
--- NOTE | 2022-07-21 22:33 | EEG ---
ELECTROENCEPHALOGRAM REPORT CLINICAL HISTORY: This is an 87-year-old woman with history of stroke who had episode of left arm jerking that was uncontrollable and brief. Video EEG is obtained to evaluate for seizure epileptiform activity. RELEVANT MEDICATION: The patient is not on any antiseizure medication. EEG TYPE: A routine 21-channel EEG is performed with video using the 10/20 electrode placement system. DESCRIPTION: Wakefulness is only obtained. During awake state, the posterior-dominant rhythm consists of low to moderate voltage of 8 hertz activity that is well modules, well sustained. There is no physiological sleep architecture. There is no focal slowing. Interictal and ictal is none. ACTIVATION PROCEDURE: Photic stimulation did not evoke a positive response. There is no abnormality during the photic stimulation. Hyperventilation is not performed. CLINICAL INTERPRETATION: This is a normal routine EEG. There is no focal slowing, epileptiform discharge or seizure on the EEG. Clinical correlation is recommended. YULY / YESSENIA: [id number] / MTDD
[2022-07-22 02:53] LABS: Glucose,Whole Blood 94 mg/dL (70-110)
[2022-07-22] MEDS: PANTOPRAZOLE 40 MG TABLET PO SCH (05:54)
[2022-07-22 07:08] LABS: Glucose,Whole Blood 93 mg/dL (70-110)
[2022-07-22 08:50] VITALS: BP 142/59; PULSE 45; RESP 16; TEMP 97.6
[2022-07-22] MEDS: DULoxetine HCL 30 MG CAPSULE.DR PO SCH (08:53)
[2022-07-22] MEDS: FUROSEMIDE 20 MG TAB PO SCH (08:53)
[2022-07-22] MEDS: FERROUS SULFATE 325 MG TAB PO SCH (08:53)
[2022-07-22] MEDS: ASPIRIN 81 MG PO SCH (08:53)
[2022-07-22] MEDS: levETIRAcetam 250 MG TAB PO SCH (08:53)
[2022-07-22] MEDS: CHOLECALCIFEROL 25 MCG (1000 IU) TABLET PO SCH (08:53)
[2022-07-22] MEDS: APIXABAN 2.5 MG TABLET PO SCH (08:53)
[2022-07-22] MEDS: ISOSORBIDE MONONITRATE ER 30 MG TAB.ER.24H PO SCH (08:54)
[2022-07-22 12:33] LABS: Glucose,Whole Blood 98 mg/dL (70-110)
--- NOTE | 2022-07-22 16:31 | P.PN ---
Subjective Progress Note Date: 07/22/22 Yesterday I was notified by the patient nurse that the patient heart rate is in the 30s. According to the patient's son and he notified the nurse today that this is normal for her. The night nurse she notify me she had an episode of some confusion. Patient feels she is doing good. Denies of any focal weakness, numbness. Denies of any tremor/jerking of extremities. Objective - Vital Signs Vital signs: Vital Signs Temp 97.6 F 07/22/22 07:00 Pulse 45 L 07/22/22 07:00 Resp 16 07/22/22 07:00 BP 142/59 07/22/22 07:00 Pulse Ox 100 07/22/22 08:02 FiO2 Intake & Output 07/21/22 07/22/22 07/22/22 18:59 06:59 18:59 Intake Total 236 118 Balance 236 118 Intake: Oral 236 118 Other: Voiding Method Toilet # Voids 1 1 1 - Exam GENERAL: The patient is sitting in a recliner chair and is not in acute distress. NEUROLOGICAL: Higher mental function: The patient is awake, alert, oriented to self, place and time. Patient is following commands. No aphasia and no neglect. Cranial nerves: The pupils are round, equal and reactive to light and accommodation. Visual [place] are full to confrontation throughout. Extraocular movement is intact no nystagmus is noted. Facial sensation is normal to touch throughout. The facial strength is normal throughout. Hearing is mildly to moderately decreased bilaterally to hand rub. Tongue is midline and moved [id number] without any difficulty. No dysarthria is noted. Shoulder shrug is normal bilaterally. Motor: The strength is left arm exttension is 4+ to 5-. Otherwise 5 over 5 thro ughout. Normal tone and bulk. Cerebellum: Normal finger to nose bilaterally. Sensation: Sensation is normal to touch throughout. Reflexes (right/left): 1+ throughout-. Plantars are mute bilaterally. Some other workup during this hospital visit consisted of: Calcium, sodium, creatinine are within normal limits POC glucose 66 which is considered the slightly low in the normal supposed to be between 74-99. No further hypoglycemic event. Further glucose is within normal limits. Lipid panel is triglyceride of 89, cholesterol is 164, LDLs 99 and HDL is 46. TSH is 2.95 0 [place] hemoglobin A1c is 5.9 CT of the head is reported as old left frontal parietal and right basal ganglia lacunar infarct present previously. Atrophy with chronic appearing paraventricular white matter ischemic changes. No acute intracranial process. I personally reviewed the CT and reading radiologist misreported as a old left frontal which is suppose to be old right frontal. Agree the patient has old right basal ganglia. Patient will also has old left temporal/cerebellar stroke. CT angiography of the head and neck is reported as mild stenosis bilateral carotid bifurcation. There is approaching 50% on the left. No acute changes [place]. Routine EEG is normal. There is no focal slowing, epileptiform discharges or seizure on aging - Labs CBC & Chem 7: 07/20/22 16:12 07/20/22 16:12 Labs: Abnormal Lab Results - Last 24 Hours (Table) 07/21/22 Range/Units 20:10 POC Glucose (mg/dL) 130 H (70-110) mg/dL Assessment and Plan Assessment: Acute episode of of left hand onto trouble tremor then later had episode of aphasia. I feel probable focal seizure especially with history of old stroke that increase risk for seizures. In our facility patient had hypoglycemia as low as 66 which can the mask stroke like symptoms but don't feel the hypoglycemia is significant enough to produce stroke like symptoms. History of old stroke in the right frontal and basal ganglia as well as the left temporal/cerebellar region Bradycardia in 30's (per son he noticed nurse that is baseline). History of atrial fibrillation on eliquis and ASA History of right CEA Pretension Hyperlipidemia Chronic back pain History of breast cancer Plan: Routine EEG is normal I placed the patient on Keppra 250 mg 1 tablet twice a day for concern of seizure. The son wanted her to be on the lowest dose. If she continues to have uncontrollable jerking then the recommend going up to 500 mg every 12 hours. Patient and her son was notified of the side effects of the Keppra at of moodiness/behavioral. Pending MRI Brain for her confusion but will be completed this Sunday since there are too many MRI's pending. Continue Eliquis 2.5mg bid and home dose of ASA 81mg daily. She on Pravastatin 40mg qhs. Continue objects On cardiac monitoring Patient has bradycardia and the son notified the nurse that this is baseline. PT OT and APPLICATIONS SUPPORT LEAD are consulted We'll defer the rest of the medical measure the primary team For DVT prophylaxis on Eliquis. Recommend the patient to follow-up with a neurologist as an outpatient within 1- 2 weeks. Plan discussed with the patient and her nurse. UPDATE: Per nurse, patient and the family does not want to wait and they would like as an outpatient. This is to be addressed by the primary care physician or upon her seeing a neurologist. So she was discharged by primary. Time with Patient: Less than 30
--- NOTE | 2022-07-23 10:37 | P.HPIM ---
History of Present Illness H&P Date: 07/21/22 Chief Complaint: Speech difficulty/left cheek 87-year-old female presents emergency Department with a past medical history significant for TIAs. Patient states EMS reported that the patient was having some expressive aphasia when they got her last month 20 minutes and then it completely resolved. Patient was aware that she was having expressive aphasia. There was no numbness no weakness was no headache there is no blurred vision and currently the patient has no complaints whatsoever. Patient denies any recent fever chills or cough per patient denies any chest pain difficulty breathing shortest breath. Patient states she's had mini strokes in the past as well. P atient denies any diabetes. Patient's sugar was 90 at the scene. Calcium, sodium, creatinine are within normal limits POC glucose 66 which is considered the slightly low in the normal supposed to be between 74-99. Further glucose is within normal limits. Lipid panel is triglyceride of 89, cholesterol is 164, LDLs 99 and HDL is 46. CT of the head is reported as old left frontal parietal and right basal ganglia lacunar infarct present previously. Atrophy with chronic appearing paraventricular white matter ischemic changes. No acute intracranial process. I personally reviewed the CT and reading radiologist misreported as a old left frontal which is suppose to be old right frontal. Agree the patient has old right basal ganglia. Patient will also has old left temporal/cerebellar stroke. The angiography of the head and neck is reported as mild stenosis bilateral carotid bifurcation. There is approaching 50% on the left. No acute changes [place] of [place]. Review of Systems REVIEW OF SYSTEMS: CONSTITUTIONAL: No fever, no malaise, no fatigue. HEENT: No recent visual problems or hearing problems. Denied any sore throat. CARDIOVASCULAR: No chest pain, orthopnea, PND, no palpitations, no syncope. PULMONARY: No shortness of breath, no cough, no hemoptysis. GASTROINTESTINAL: No diarrhea, no nausea, no vomiting, no abdominal pain. NEUROLOGICAL: No headaches, no weakness, no numbness. HEMATOLOGICAL: Denies any bleeding or petechiae. GENITOURINARY: Denies any burning micturition, frequency, or urgency. MUSCULOSKELETAL/RHEUMATOLOGICAL: Denies any joint pain, swelling, or any muscle pain. ENDOCRINE: Denies any polyuria or polydipsia. The rest of the 14-point review of systems is negative. 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 Smoking Status: Former smoker Past Alcohol Use History: None Reported Additional Past Alcohol Use History / Comment(s): 1 PPD STARTED SMOKING AT AGE 15 QUIT IN 1984 SMOKED 1PPD Past Drug Use History: None Reported - Past Family History Brother(s) Family Medical History: Cancer Sister(s) Family Medical History: Cancer Mother Family Medical History: Coronary Artery Disease (CAD) Additional Family Medical History / Comment(s): enlarged heart Father Family Medical History: Coronary Artery Disease (CAD), CVA/TIA Medications and Allergies Home Medications Medication Instructions Recorded Confirmed Type Pravastatin Sodium [Pravachol] 40 mg PO HS 08/04/13 07/20/22 History Ascorbic Acid [Vitamin C with Stacy 500 mg PO HS 02/22/16 07/20/22 History Hips] Ferrous Sulfate [Iron (65 MG 325 mg PO DAILY 02/05/17 07/20/22 History Elemental)] Cholecalciferol [Vitamin D3 (25 25 mcg PO DAILY 04/11/18 07/20/22 History Mcg = 1000 Iu)] Pantoprazole [Protonix] 40 mg PO DAILY 04/11/18 07/20/22 History Albuterol Inhaler [Ventolin Hfa 2 puff INHALATION RT-Q6H PRN 04/29/22 07/20/22 History Inhaler] Apixaban [Eliquis] 2.5 mg PO BID 04/29/22 07/20/22 History DULoxetine HCL [Cymbalta] 30 mg PO DAILY 04/29/22 07/20/22 History Denosumab [Prolia] 60 mg SQ Q180D 04/29/22 07/20/22 History Furosemide [Lasix] 20 mg PO DAILY 04/29/22 07/20/22 History Isosorbide Mononitrate ER [Imdur] 30 mg PO DAILY 04/29/22 07/20/22 History Latanoprost [Latanoprost 0.005%] 1 drop BOTH EYES HS 04/29/22 07/20/22 History Melatonin 1 mg PO HS 04/29/22 07/20/22 History Aspirin 81 mg PO DAILY 30 Days #30 tab 05/17/22 07/20/22 Rx Acetaminophen-Codeine 300-30mg 1 tab PO BID PRN 07/20/22 07/20/22 History [Tylenol w/codeine #3] levETIRAcetam [Keppra] 250 mg PO Q12HR 30 Days #60 tab 07/22/22 Rx Allergies Allergy/AdvReac Type Severity Reaction Status Date / Time No Known Allergies Allergy Verified 07/20/22 18:53 Physical Exam Vitals: Vital Signs Temp Pulse Pulse Resp BP BP Pulse Ox 07/21/22 07:18 97.8 F 82 18 189/106 96 07/21/22 02:00 97.2 F L 58 L 13 152/68 96 07/20/22 20:30 48 L 16 105/67 98 07/20/22 20:00 97.7 F 47 L 16 157/60 97 07/20/22 16:06 96.8 F L 51 L 18 145/67 95 Intake and Output 07/20/22 07/21/22 07/21/22 22:59 06:59 14:59 Intake Total 118 Balance 118 Intake: Oral 118 Other: Voiding Method Toilet # Voids 1 Weight 63.503 kg PHYSICAL EXAMINATION: GENERAL: The patient is alert and oriented x3, not in any acute distress. Well developed, well nourished. HEENT: Pupils are round and equally reacting to light. EOMI. No scleral icterus. No conjunctival pallor. Normocephalic, atraumatic. No pharyngeal erythema. No thyromegaly. CARDIOVASCULAR: S1 and S2 present. No murmurs, rubs, or gallops. PULMONARY: Chest is clear to auscultation, no wheezing or crackles. ABDOMEN: Soft, nontender, nondistended, normoactive bowel sounds. No palpable organomegaly. MUSCULOSKELETAL: No joint swelling or deformity. EXTREMITIES: No cyanosis, clubbing, or pedal edema. NEUROLOGICAL: Gross neurological examination did not reveal any focal deficits. SKIN: No rashes. Results CBC & Chem 7: 07/20/22 16:12 07/20/22 16:12 Labs: Abnormal Lab Results - Last 24 Hours (Table) 07/20/22 07/20/22 Range/Units 16:12 16:12 Hct 49.1 H (34.0-46.0) % MCHC 30.3 L (31.0-37.0) g/dL BUN 18 H (7-17) mg/dL Glucose 66 L (74-99) mg/dL Creatine Kinase 164 H (30-135) U/L Assessment and Plan Assessment: Aphasia with left hand tremors; possible seizures versus TIA History of old stroke in the right frontal vasoganglia as well as the left temporal/cerebellar region History of atrial fibrillation on eliquis and ASA History of right CEA Pretension Hyperlipidemia Chronic back pain History of breast cancer - - Patient has been evaluated by neurology and is recommended EEG to rule out ac tive seizures; patient had an EEG done about 2 months ago which was negative for any seizure discharges; neurology recommending to start patient on Keppra 250 mg twice a day for high suspicion of seizures and recommending to increase the dose up to 500 mg every 12 hours if patient continues to have uncontrollable tremors - MRI of the brain is recommended as an outpatient - Patient will continue with anticoagulation and aspirin; continue pravastatin 40 mg daily at bedtime - PT/OT/FISH AND WILDLIFE TECHNICIAN consulted
== END 2022-07-22 14:45 | disposition home health service (06) | DRG 57 ==
LOC: EC 15:54 → 6NMEDSUR 18:58 → OBSVTOIN 18:58 → 6NMEDSUR 21:19
PROVIDERS: ADMIT Hospitalist; ATTEND Hospitalist
DX: I69.398 Other sequelae of cerebral infarction (principal); R56.9 Unspecified convulsions; E16.2 Hypoglycemia, unspecified; R00.1 Bradycardia, unspecified; I65.23 Occlusion and stenosis of bilateral carotid arteries; I48.91 Unspecified atrial fibrillation; Z79.01 Long term (current) use of anticoagulants; J43.9 Emphysema, unspecified; F41.9 Anxiety disorder, unspecified; G89.29 Other chronic pain; M54.9 Dorsalgia, unspecified; Z87.891 Personal history of nicotine dependence; Z82.3 Family history of stroke; Z82.49 Family history of ischemic heart disease and other diseases of the circulatory system; Z85.3 Personal history of malignant neoplasm of breast; Z79.899 Other long term (current) drug therapy; Z87.01 Personal history of pneumonia (recurrent); Z79.82 Long term (current) use of aspirin; Z86.718 Personal history of other venous thrombosis and embolism; Z28.310 Unvaccinated for COVID-19
CPT/HCPCS: 36415; 70450; 70496; 70498; 71046; 80053; 80061; 82550; 83036; 84443; 84484; 85025; 85610; 85730; 94760; 95816; 99285

== ENCOUNTER → 2022-08-21 | Outpatient (CLI) | payer MEDICARE, BC ==
--- NOTE | 2022-08-21 17:03 | MR ---
EXAMINATION TYPE: MR brain wo/w con DATE OF EXAM: 08/21/2022 4:49 PM COMPARISON: NONE HISTORY: Speech Slurred, possible Seizure CONTRAST: Patient received 6.5ml mL intravenous Gadavist gadolinium contrast. Multiplanar and multispin-echo imaging of the brain was performed . Pre and post contrast enhanced i mages are obtained. The ventricles, basal cisterns and sulci overlying the cerebral convexities are moderately enlarged. Insult right frontal region and right parietal occipital watershed. There is evidence of moderate periventricular white matter ischemic demyelination. Remote deep white matter insults are also noted. No acute edema is seen on diffusion weighted imaging. There is no evidence for midline shift or mass effect. Acute intracranial hemorrhage or extra-axial collection is not evident. No enhancing lesions are seen. The paranasal sinuses and mastoid air cells are well-aerated. IMPRESSION: Age-related atrophic and chronic small vessel ischemic change. No acute intracranial process at this time. No enhancing lesions are seen.
== END | disposition home or self-care (01) ==
LOC: RADMRIMAIN 15:46
PROVIDERS: ATTEND Internal Medicine Geriatric Medicine
DX: I67.82 Cerebral ischemia (principal); G31.9 Degenerative disease of nervous system, unspecified; G45.9 Transient cerebral ischemic attack, unspecified
CPT/HCPCS: 70553; A9585

== ENCOUNTER 2022-09-30 08:12 | Observation (INO) | payer MEDICARE, BC ==
--- NOTE | 2022-09-30 08:55 | XR ---
EXAMINATION TYPE: XR chest 2V DATE OF EXAM: 09/30/2022 COMPARISON: 07/20/2022 INDICATION: Chest pain TECHNIQUE: Frontal and lateral views of the chest are obtained. FINDINGS: The heart size is mildly prominent. The pulmonary vasculature is mildly prominent. The lungs are clear. IMPRESSION: 1. Cardiomegaly with mild vascular prominence.
--- NOTE | 2022-09-30 09:37 | ED ---
General Adult HPI - General Chief complaint: Chest Pain Stated complaint: Chest pain Time Seen by Provider: 09/30/22 08:19 Source: patient, EMS Mode of arrival: EMS Limitations: no limitations - History of Present Illness Initial comments: Dictation was produced using [employer] dictation software. please excuse any grammatical, word or spelling errors. Chief Complaint: 87-year-old female presents with chest pain History of Present Illness: Is an 87-year-old female she presents with episode of chest pain. She states that it was a dull pressure-like sensation to her left lower chest. Patient states he was not rating. No associated diaphoresis or nausea. Patient denies any history of cardiac disease. Patient is a poor historian. States that at the bedside she is asymptomatic. EMS provide some history states that she was bradycardic. The ROS documented in this emergency department record has been reviewed and confirmed by me. Those systems with pertinent positive or negative responses have been documented in the HPI. All other systems are other negative and/or noncontributory. - Related Data Home Medications Medication Instructions Recorded Confirmed Pravastatin Sodium [Pravachol] 40 mg PO HS 08/04/13 07/20/22 Ascorbic Acid [Vitamin C with Stacy 500 mg PO HS 02/22/16 07/20/22 Hips] Ferrous Sulfate [Iron (65 MG 325 mg PO DAILY 02/05/17 07/20/22 Elemental)] Cholecalciferol [Vitamin D3 (25 25 mcg PO DAILY 04/11/18 07/20/22 Mcg = 1000 Iu)] Pantoprazole [Protonix] 40 mg PO DAILY 04/11/18 07/20/22 Albuterol Inhaler [Ventolin Hfa 2 puff INHALATION RT-Q6H PRN 04/29/22 07/20/22 Inhaler] Apixaban [Eliquis] 2.5 mg PO BID 04/29/22 07/20/22 DULoxetine HCL [Cymbalta] 30 mg PO DAILY 04/29/22 07/20/22 Denosumab [Prolia] 60 mg SQ Q180D 04/29/22 07/20/22 Furosemide [Lasix] 20 mg PO DAILY 04/29/22 07/20/22 Isosorbide Mononitrate ER [Imdur] 30 mg PO DAILY 04/29/22 07/20/22 Latanoprost [Latanoprost 0.005%] 1 drop BOTH EYES HS 04/29/22 07/20/22 Melatonin 1 mg PO HS 04/29/22 07/20/22 Acetaminophen-Codeine 300-30mg 1 tab PO BID PRN 07/20/22 07/20/22 [Tylenol w/codeine #3] Previous Rx's Medication Instructions Recorded Aspirin 81 mg PO DAILY 30 Days #30 tab 05/17/22 levETIRAcetam [Keppra] 250 mg PO Q12HR 30 Days #60 tab 07/22/22 Allergies Allergy/AdvReac Type Severity Reaction Status Date / Time No Known Allergies Allergy Verified 09/30/22 08:34 Review of Systems ROS Statement: Those systems with pertinent positive or pertinent negative responses have been documented in the HPI. ROS Other: All systems not noted in ROS Statement are negative. 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,, emphysema; hypoglycemia, hx breast cancer, History of Any Multi-Drug Resistant Organisms: None Reported Past Surgical History: Back Surgery, Breast Surgery, Cholecystectomy, Heart Catheterization Additional Past Surgical History / Comment(s): L SUBCLAVIAN ARTERY BYPASS, Rt CAROTID ENDARTECTOMY, rt breast lumpectomy Past Anesthesia/Blood Transfusion Reactions: No Reported Reaction Additional Past Anesthesia/Blood Transfusion Reaction / Comment(s): PT RECIEVED BLOOD TRANSFUSION Past Psychological History: Anxiety Smoking Status: Former smoker Past Alcohol Use History: None Reported Past Drug Use History: None Reported - Past Family History Brother(s) Family Medical History: Cancer Sister(s) Family Medical History: Cancer Mother Family Medical History: Coronary Artery Disease (CAD) Additional Family Medical History / Comment(s): enlarged heart Father Family Medical History: Coronary Artery Disease (CAD), CVA/TIA General Exam - General Exam Comments Initial Comments: PHYSICAL EXAM: General Impression: Alert and oriented x3, not in acute distress HEENT: Normocephalic atraumatic, extra-ocular movements intact, pupils equal and reactive to light bilaterally, mucous membranes moist. Cardiovascular: Heart regular rate and rhythm Chest: Able to complete full sentences, no retractions, no tachypnea Abdomen: abdomen soft, non-tender, non-distended, no organomegaly Musculoskeletal: Pulses present and equal in all extremities, no peripheral edema Motor: no focal deficits noted Neurological: CN II-XII grossly intact, no focal motor or sensory deficits noted Skin: Intact with no visualized rashes Psych: Normal affect and mood Limitations: no limitations Course Vital Signs 09/30/22 09/30/22 08:15 11:08 Temperature 97.2 F L Pulse Rate 70 75 Respiratory 20 18 Rate Blood Pressure 180/90 183/83 O2 Sat by Pulse 99 94 L Oximetry EKG Findings - EKG Comments: EKG Findings:: My EKG interpretation: Ventricular rate 40, sinus bradycardia, OR interval 219, QRS 70, QTC 399. No OR prolongation, no QTC prolongation, no ST or T-wave changes noted. EKG compared to 07/21/2022 showing no changes. Overall, this EKG is unremarkable Medical Decision Making - Medical Decision Making Was pt. sent in by a medical professional or institution (, PA, CUSTOMER LEADER, urgent care, hospital, or senior care...) When possible be specific @ -No Did you speak to anyone other than the patient for history (EMS, parent, family, police, friend...)? What history was obtained from this source @ -No Did you review nursing and triage notes (agree or disagree)? Why? @ -I reviewed and agree with nursing and triage notes Were old charts reviewed (outside hosp., previous admission, EMS record, old EKG, old radiological studies, urgent care reports/EKG's, senior care records)? Report findings @ -No old charts were reviewed Differential Diagnosis (chest pain, altered mental status, abdominal pain women, abdominal pain men, vaginal bleeding, musculoskeletal, weakness, fever, dyspnea, syncope, headache, dizziness, GI bleed, back pain, seizure, CVA, palpatations, mental health)? @ -Differential Chest Pain: Stable Angina, Unstable Angina, STEMI, NSTEMI Aortic Dissection, Pneumothorax, Musculoskeletal, Esophageal Spasm GERD, Cholecystitis, Pancreatitis, Zoster, this is not meant to be an all-inclusive list. EKG interpreted by me (3pts min.). @ -As above X-rays interpreted by me (1pt min.). @ -. Chest x-ray shows no acute processes CT interpreted by me (1pt min.). @ -None done U/S interpreted by me (1pt. min.). @ -None done What testing was considered but not performed or refused? (CT, X-rays, U/S, labs)? Why? @ -None What meds were considered but not given or refused? Why? @ -None Did you discuss the management of the patient with other professionals (professionals i.e. DrJanina, PA, CUSTOMER LEADER, lab, RT, psych nurse, social sciences research scientist, reach truck operator, teacher, credit products officer, case finishing machine adjuster)? Give summary @ -No Was smoking cessation discussed for >3mins.? @ -No Was critical care preformed (if so, how long)? @ -No Were there social determinants of health that impacted care today? How? (Homelessness, low income, unemployed, alcoholism, drug addiction, transportation, low edu. Level, literacy, decrease access to med. care, skilled nursing, rehab)? @ -No Was there de-escalation of care discussed even if they declined (Discuss DNR or withdrawal of care, Hospice)? DNR status @ -No What co-morbidities impacted this encounter? (DM, HTN, Smoking, COPD, CAD, Cancer, CVA, ARF, Chemo, Hep., AIDS, mental health diagnosis, sleep apnea, morbid obesity)? @ -None Was patient admitted / discharged? Hospital course, mention meds given and r oute, prescriptions, significant lab abnormalities, going to OR and other pertinent info. @ -87-year-old female presents emergency perforated which is pretty typical features. Vital signs are stable. Patient is symptomatic at the bedside. EKG is unremarkable. Laboratory evaluation obtained. CBC, coag panel metabolic panel is unremarkable. First troponin is negative. Patient reevaluated at bedside still continues to be asymptomatic. Patient is agreeable for observation admission for cardiac monitoring Undiagnosed new problem with uncertain prognosis? @ -No Drug Therapy requiring intensive monitoring for toxicity (Heparin, Nitro, Insulin, Cardizem)? @ -No Were any procedures done? @ -No Diagnosis/symptom? Acute, or Chronic, or Acute on Chronic? Uncomplicated (without systemic symptoms) or Complicated (systemic symptoms)? @ -1.chest pain Side effects of treatment? @ -No Exacerbation, Progression, or Severe Exacerbation? @ -No Poses a threat to life or bodily function? How? (Chest pain, [place], [place], pneumonia, PE, COPD, DKA, ARF, appy, cholecystitis, CVA, Diverticulitis, Homicidal, Suicidal, threat to staff... and all critical care pts) @ -yes - Lab Data Result diagrams: 09/30/22 09:39 09/30/22 09:39 Lab Results 09/30/22 09/30/22 09/30/22 Range/Units 09:39 09:39 09:39 WBC 6.3 (3.8-10.6) k/uL RBC 4.66 (3.80-5.40) m/uL Hgb 13.6 (11.4-16.0) gm/dL Hct 43.0 (34.0-46.0) % MCV 92.2 (80.0-100.0) fL MCH 29.3 (25.0-35.0) pg MCHC 31.8 (31.0-37.0) g/dL RDW 15.5 (11.5-15.5) % Plt Count 228 (150-450) k/uL MPV 7.3 Neutrophils % 52 % Lymphocytes % 34 % Monocytes % 7 % Eosinophils % 4 % Basophils % 1 % Neutrophils # 3.2 (1.3-7.7) k/uL Lymphocytes # 2.1 (1.0-4.8) k/uL Monocytes # 0.5 (0-1.0) k/uL Eosinophils # 0.3 (0-0.7) k/uL Basophils # 0.1 (0-0.2) k/uL Hypochromasia Moderate PT 10.7 (9.0-12.0) sec INR 1.0 (<1.2) APTT 22.1 (22.0-30.0) sec Sodium 140 (137-145) mmol/L Potassium 4.3 (3.5-5.1) mmol/L Chloride 99 (98-107) mmol/L Carbon Dioxide 35 H (22-30) mmol/L Anion Gap 6 mmol/L BUN 19 H (7-17) mg/dL Creatinine 0.93 (0.52-1.04) mg/dL Est GFR (CKD-EPI)AfAm 64 (>60 ml/min/1.73 sqM) Est GFR (CKD-EPI)NonAf 56 (>60 ml/min/1.73 sqM) Glucose 92 (74-99) mg/dL Calcium 9.6 (8.4-10.2) mg/dL Magnesium 2.3 (1.6-2.3) mg/dL Total Bilirubin 0.4 (0.2-1.3) mg/dL AST 30 (14-36) U/L ALT 17 (4-34) U/L Alkaline Phosphatase 60 (38-126) U/L Troponin I (0.000-0.034) ng/mL Total Protein 7.2 (6.3-8.2) g/dL Albumin 4.2 (3.5-5.0) g/dL 09/30/22 Range/Units 09:39 WBC (3.8-10.6) k/uL RBC (3.80-5.40) m/uL Hgb (11.4-16.0) gm/dL Hct (34.0-46.0) % MCV (80.0-100.0) fL MCH (25.0-35.0) pg MCHC (31.0-37.0) g/dL RDW (11.5-15.5) % Plt Count (150-450) k/uL MPV Neutrophils % % Lymphocytes % % Monocytes % % Eosinophils % % Basophils % % Neutrophils # (1.3-7.7) k/uL Lymphocytes # (1.0-4.8) k/uL Monocytes # (0-1.0) k/uL Eosinophils # (0-0.7) k/uL Basophils # (0-0.2) k/uL Hypochromasia PT (9.0-12.0) sec INR (<1.2) APTT (22.0-30.0) sec Sodium (137-145) mmol/L Potassium (3.5-5.1) mmol/L Chloride (98-107) mmol/L Carbon Dioxide (22-30) mmol/L Anion Gap mmol/L BUN (7-17) mg/dL Creatinine (0.52-1.04) mg/dL Est GFR (CKD-EPI)AfAm (>60 ml/min/1.73 sqM) Est GFR (CKD-EPI)NonAf (>60 ml/min/1.73 sqM) Glucose (74-99) mg/dL Calcium (8.4-10.2) mg/dL Magnesium (1.6-2.3) mg/dL Total Bilirubin (0.2-1.3) mg/dL AST (14-36) U/L ALT (4-34) U/L Alkaline Phosphatase (38-126) U/L Troponin I <0.012 (0.000-0.034) ng/mL Total Protein (6.3-8.2) g/dL Albumin (3.5-5.0) g/dL Disposition Clinical Impression: Chest pain Disposition: ADMITTED IP TO THIS HOSP Condition: Fair Referrals: Tacos Saha MD [Primary Care Provider] - 1-2 days Decision Time: 12:12
[2022-09-30 10:16] LABS: Basophils # (A) 0.1 k/uL (0-0.2); Basophils % (A) 1 %; Eosinophils # (A) 0.3 k/uL (0-0.7); Eosinophils % (A) 4 %; HGB 13.6 gm/dL (11.4-16.0); Hypochromasia Moderate; Lymphocytes # (A) 2.1 k/uL (1.0-4.8); Lymphocytes % (A) 34 %; MCH 29.3 pg (25.0-35.0); MCHC 31.8 g/dL (31.0-37.0); MCV 92.2 fL (80.0-100.0); Mean Platelet Volume 7.3; Monocytes # (A) 0.5 k/uL (0-1.0); Monocytes % (A) 7 %; Neutrophils # (A) 3.2 k/uL (1.3-7.7); Neutrophils % (A) 52 %; Platelet Count 228 k/uL (150-450); RBC 4.66 m/uL (3.80-5.40); RDW 15.5 % (11.5-15.5); WBC 6.3 k/uL (3.8-10.6)
[2022-09-30 10:27] LABS: Partial Thromboplastin Time 22.1 sec (22.0-30.0); Prothrombin Time 10.7 sec (9.0-12.0)
[2022-09-30 10:28] LABS: ALT 17 U/L (4-34); AST 30 U/L (14-36); African American GFR (CKD) 64 (>60 ml/min/1.73 sqM); Albumin 4.2 g/dL (3.5-5.0); Alkaline Phosphatase 60 U/L (38-126); Anion Gap 6 mmol/L; Blood Urea Nitrogen 19 mg/dL (7-17); Calcium 9.6 mg/dL (8.4-10.2); Carbon Dioxide 35 mmol/L (22-30); Chloride 99 mmol/L (98-107); Glucose 92 mg/dL (74-99); Magnesium 2.3 mg/dL (1.6-2.3); Non-African American GFR(CKD) 56 (>60 ml/min/1.73 sqM); Potassium 4.3 mmol/L (3.5-5.1); Sodium 140 mmol/L (137-145); Total Bilirubin 0.4 mg/dL (0.2-1.3); Total Protein 7.2 g/dL (6.3-8.2)
[2022-09-30] MEDS ORDERED: NITROGLYCERIN SL TABS 0.4 MG TAB SUBLINGUAL PRN (12:09)
[2022-09-30] MEDS ORDERED: ASPIRIN 81 MG PO STA (12:09)
[2022-09-30] MEDS ORDERED: Acetaminophen-Codeine 300-30mg TAB PO PRN (20:17)
[2022-09-30] MEDS ORDERED: ALBUTEROL NEBULIZED 2.5 MG/3 ML INHALATION PRN (20:17)
[2022-09-30] MEDS ORDERED: MELATONIN 1 MG TAB PO SCH (21:00)
[2022-09-30] MEDS ORDERED: LATANOPROST 0.005% OPHTH DROPS 2.5 ML BTL BOTH EYES SCH (21:00)
[2022-09-30] MEDS: levETIRAcetam 500 MG TAB PO SCH (21:38)
[2022-09-30] MEDS: APIXABAN 2.5 MG TABLET PO SCH (21:38)
[2022-10-01] MEDS: levETIRAcetam 500 MG TAB PO SCH (08:59)
[2022-10-01] MEDS: APIXABAN 2.5 MG TABLET PO SCH (08:59)
[2022-10-01 09:00] VITALS: RESP 14
[2022-10-01] MEDS ORDERED: PRAVASTATIN SODIUM 40 MG TAB PO SCH (09:00)
[2022-10-01] MEDS ORDERED: FUROSEMIDE 20 MG TAB PO SCH (09:00)
[2022-10-01] MEDS ORDERED: ISOSORBIDE MONONITRATE ER 30 MG TAB.ER.24H PO SCH (09:00)
[2022-10-01] MEDS ORDERED: PANTOPRAZOLE 40 MG TABLET PO SCH (09:00)
[2022-10-01] MEDS ORDERED: DULoxetine HCL 30 MG CAPSULE.DR PO SCH (09:00)
[2022-10-01] MEDS ORDERED: ASCORBIC ACID 500 MG TAB PO SCH (09:00)
[2022-10-01] MEDS ORDERED: CHOLECALCIFEROL 25 MCG (1000 IU) TABLET PO SCH (09:00)
[2022-10-01] MEDS ORDERED: ASPIRIN 325 MG TAB PO SCH (09:00)
[2022-10-01] MEDS ORDERED: FERROUS SULFATE 325 MG TAB PO SCH (09:00)
[2022-10-01 09:07] LABS: Basophils # (A) 0.07 X 10*3/uL (0.00-0.10); Basophils % (A) 0.9 %; Eosinophils # (A) 0.21 X 10*3/uL (0.04-0.35); Eosinophils % (A) 2.6 %; HCT 43.6 % (37.2-46.3); HGB 13.1 d/dL (12.0-15.0); Lymphocytes # (A) 2.52 X 10*3/uL (0.90-5.00); Lymphocytes % (A) 31.8 %; MCH 28.1 pg (27.0-32.0); MCV 93.6 FL (80.0-97.0); Monocytes # (A) 0.82 X 10*3/uL (0.20-1.00); Monocytes % (A) 10.3 %; NRBC Per 100 WBC 0 X 10*3/uL (0.00-0.01); Neutrophils # (A) 4.29 X 10*3/uL (1.80-7.70); Neutrophils % (A) 54.1 %; Platelet Count 246 X 10*3/uL (140-440); RBC 4.66 X 10*6/uL (4.10-5.20); RDW 16.2 % (11.5-14.5); WBC 7.93 X 10*3/uL (4.50-10.00)
--- NOTE | 2022-10-01 10:05 | P.HPIM ---
History of Present Illness H&P Date: 09/30/22 Chief Complaint: Chest pain/palpitations 87-year-old female she presents with episode of chest pain. She states that it was a dull pressure-like sensation to her left lower chest. Patient states he was not rating. No associated diaphoresis or nausea. Patient denies any h istory of cardiac disease. Patient is a poor historian. States that at the bedside she is asymptomatic. EMS provide some history states that she was bradycardic. EKG Findings: Ventricular rate 40, sinus bradycardia, CT interval 219, QRS 70, QTC 399. No CT prolongation, no QTC prolongation, no ST or T-wave changes noted. EKG compared to 07/21/2022 showing no changes. Overall, this EKG is unremarkable Chest x-ray reveals no acute process Blood work completed reveals a WBC of 6.2, hemoglobin of 13.6 and blood count of 228, sodium 140 4.3, BUN/creatinine of 19/0.93 and blood glucose of 92, troponin is less than 0.012 Review of Systems REVIEW OF SYSTEMS: CONSTITUTIONAL: No fever, no malaise, no fatigue. HEENT: No recent visual problems or hearing problems. Denied any sore throat. CARDIOVASCULAR: No chest pain, orthopnea, PND, no palpitations, no syncope. PULMONARY: No shortness of breath, no cough, no hemoptysis. GASTROINTESTINAL: No diarrhea, no nausea, no vomiting, no abdominal pain. NEUROLOGICAL: No headaches, no weakness, no numbness. HEMATOLOGICAL: Denies any bleeding or petechiae. GENITOURINARY: Denies any burning micturition, frequency, or urgency. MUSCULOSKELETAL/RHEUMATOLOGICAL: Denies any joint pain, swelling, or any muscle pain. ENDOCRINE: Denies any polyuria or polydipsia. The rest of the 14-point review of systems is negative. 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 Smoking Status: Former smoker Past Alcohol Use History: None Reported Additional Past Alcohol Use History / Comment(s): 1 PPD STARTED SMOKING AT AGE 15 QUIT IN 1984 SMOKED 1PPD Past Drug Use History: None Reported - Past Family History Brother(s) Family Medical History: Cancer Sister(s) Family Medical History: Cancer Mother Family Medical History: Coronary Artery Disease (CAD) Additional Family Medical History / Comment(s): enlarged heart Father Family Medical History: Coronary Artery Disease (CAD), CVA/TIA Medications and Allergies Home Medications Medication Instructions Recorded Confirmed Type Pravastatin Sodium [Pravachol] 40 mg PO DAILY 08/04/13 09/30/22 History Ascorbic Acid [Vitamin C with Stacy 500 mg PO DAILY 02/22/16 09/30/22 History Hips] Ferrous Sulfate [Iron (65 MG 325 mg PO DAILY 02/05/17 09/30/22 History Elemental)] Pantoprazole [Protonix] 40 mg PO DAILY 04/11/18 09/30/22 History Albuterol Inhaler [Ventolin Hfa 2 puff INHALATION RT-Q6H PRN 04/29/22 09/30/22 History Inhaler] Apixaban [Eliquis] 2.5 mg PO BID 04/29/22 09/30/22 History DULoxetine HCL [Cymbalta] 30 mg PO DAILY 04/29/22 09/30/22 History Denosumab [Prolia] 60 mg SQ Q180D 04/29/22 09/30/22 History Furosemide [Lasix] 20 mg PO DAILY 04/29/22 09/30/22 History Isosorbide Mononitrate ER [Imdur] 30 mg PO DAILY 04/29/22 09/30/22 History Latanoprost [Latanoprost 0.005%] 1 drop BOTH EYES HS 04/29/22 09/30/22 History Melatonin 1 mg PO HS 04/29/22 09/30/22 History Aspirin 81 mg PO DAILY 30 Days #30 tab 05/17/22 09/30/22 Rx Acetaminophen-Codeine 300-30mg 1 tab PO BID PRN 07/20/22 09/30/22 History [Tylenol w/codeine #3] Cholecalciferol [Vitamin D3 (25 25 mcg PO DAILY 09/30/22 09/30/22 History Mcg = 1000 Iu)] levETIRAcetam [Keppra] 500 mg PO Q12HR 09/30/22 09/30/22 History Allergies Allergy/AdvReac Type Severity Reaction Status Date / Time No Known Allergies Allergy Verified 09/30/22 16:31 Physical Exam Vitals: Vital Signs Temp Pulse Pulse Resp BP BP Pulse Ox 09/30/22 15:00 98.2 F 49 L 16 164/69 95 09/30/22 13:59 55 L 18 158/67 100 09/30/22 11:08 75 18 183/83 94 L 09/30/22 08:15 97.2 F L 70 20 180/90 99 Intake and Output 09/30/22 09/30/22 09/30/22 06:59 14:59 22:59 Other: Voiding Method Diaper Incontinent Weight 65.771 kg General Impression: Alert and oriented x3, not in acute distress HEENT: Normocephalic atraumatic, extra-ocular movements intact, pupils equal and reactive to light bilaterally, mucous membranes moist. Cardiovascular: Heart regular rate and rhythm Chest: Able to complete full sentences, no retractions, no tachypnea Abdomen: abdomen soft, non-tender, non-distended, no organomegaly Musculoskeletal: Pulses present and equal in all extremities, no peripheral edema Motor: no focal deficits noted Neurological: CN II-XII grossly intact, no focal motor or sensory deficits noted Skin: Intact with no visualized rashes Psych: Normal affect and mood Results CBC & Chem 7: 10/01/22 05:55 09/30/22 09:39 Labs: Abnormal Lab Results - Last 24 Hours (Table) 09/30/22 Range/Units 09:39 Carbon Dioxide 35 H (22-30) mmol/L BUN 19 H (7-17) mg/dL Thrombosis Risk Factor Assmnt - Choose All That Apply Each Risk Factor Represents 3 Points: History of DVT/PE Thrombosis Risk Factor Assessment Total Risk Factor Score: 3 Thrombosis Risk Factor Assessment Level: Moderate Risk Assessment and Plan Assessment: 1. Chest pain; rule out acute coronary syndrome - Patient is admitted for observation for cardiac monitoring; we will monitor EKG and trend troponin - Patient remains on aspirin, statins, nitrates and Ahlquist 2.5 mg twice a day - Recommend 2-D echo - Consult cardiology for further recommendations 2. Mild acute renal injury; we will order normal saline at rate of 75 mL an hour; monitor strict BAR's and daily weights; renal function and electrolytes; avoid nephrotoxins and hypotension 3. Bradycardia; EKG completed in ED reveals sinus bradycardia; patient is currently not on any beta blockers; we will monitor closely; order thyroid profile; further recommendations per cardiology evaluation 4. Hyperlipidemia; pravastatin 40 mg daily 5. Seizure disorder; Keppra 500 mg every 12 hours 6. History of DVT; Ahlquist 2.5 mg twice a day 7. COPD; not in exacerbation; continue with home inhaler therapy 8. CVA/TIA; patient remains on aspirin and statin therapy DVT prophylaxis; SCDs/systemic anticoagulation CODE STATUS; full code
[2022-10-01 10:17] LABS: BUN/Creat Ratio 18.56 Ratio (12.00-20.00); Blood Urea Nitrogen 16.7 mg/dL (9.0-27.0); Chol/HDL Ratio 3.56 Ratio; Glucose 89 mg/dL (70-110); LDL Cholesterol,Calculated 80.7 mg/dL (0.0-131.0); VLDL Calculation 18.52 mg/dL (5.00-40.00)
[2022-10-01 10:18] LABS: Calcium 9.6 mg/dL (8.7-10.3); Carbon Dioxide 28.9 mmol/L (21.6-31.8); Chloride 104 mmol/L (96-109); Potassium 4.7 mmol/L (3.5-5.5); Sodium 141 mmol/L (135-145)
--- NOTE | 2022-10-01 13:38 | CONS ---
CONSULTATION HISTORY OF PRESENT ILLNESS: Kate is an 87-year-old lady, well known to me from my practice with history of paroxysmal atrial fibrillation, carotid stenosis, hypertension, and dyslipidemia, who presents to hospital with symptoms of chest discomfort. This is sharp, mild intensity, precordial, unrelated to exertion and unassociated with diaphoresis. The patient also has had problems with bradycardia. On her initial presentation, her EKG showed sinus bradycardia without acute ischemic changes. The patient on telemetry has had pauses that are less than 3 seconds, mostly when she was sleeping. She lives by herself with a son living close to her. She is not on any medications that would cause bradycardia. She has had three sets of troponins that are all within normal limits. Hemoglobin is normal. Potassium is 4.3. I will check a TSH to make sure that she is not hypothyroid. PAST MEDICAL HISTORY: Significant for paroxysmal atrial fibrillation, carotid stenosis, hypertension, dyslipidemia, and CVA. MEDICATIONS AT HOME: Included, 1. Keppra. 2. Lasix. 3. Cymbalta. 4. Eliquis 2.5 b.i.d. 5. Protonix. 6. Melatonin. 7. Aspirin. 8. Pravachol. 9. Imdur. 10.Albuterol. 11.Codeine. ALLERGIES: There are no known drug allergies. FAMILY HISTORY: Negative for premature coronary artery disease. SOCIAL HISTORY: Negative for smoking, EtOH abuse, or drug abuse. REVIEW OF SYSTEMS: 14 out of 14 review of systems has been performed. Pertinents are as documented. PHYSICAL EXAMINATION: GENERAL: Comfortable at rest. VITAL SIGNS: Afebrile. Heart rate is 80 beats per minute. Blood pressure is 128/70. Respiratory rate is 18. O2 saturation is 95% on room air. NECK: There is no jugular venous distention. Carotid upstroke is normal. There is no bruit. CHEST: Reveals good air entry bilaterally. HEART: Reveals first and second heart sounds. No gallop. No murmur. ABDOMEN: Soft, nontender. EXTREMITIES: Did not reveal any edema. Peripheral pulses are felt. LABORATORY DATA: Show that the 3 sets of troponins are negative. ASSESSMENT: 1. Atypical chest pain. 2. Paroxysmal atrial fibrillation. 3. Asymptomatic bradycardia. PLAN: The patient will continue current medications. I will check a TSH. The patient has had bradycardia in the past and these pauses are noted when she is sleeping. Unless she develops symptomatic pauses, we do not need to do anything about it at this time. I will consider doing an outpatient event monitor on her. We should be able to discharge her home over the next 24 hours. YULY / YESSENIA: [id number] /
[2022-10-01 14:27] VITALS: BP 181/87; PULSE 84; TEMP 97.4
== END 2022-10-01 16:53 | disposition home or self-care (01) ==
LOC: EC 08:12 → 6NMEDSUR 12:09
PROVIDERS: ADMIT Internal Medicine; ATTEND Internal Medicine
DX: R07.9 Chest pain, unspecified (principal); R00.1 Bradycardia, unspecified; N17.9 Acute kidney failure, unspecified; I50.9 Heart failure, unspecified; E78.5 Hyperlipidemia, unspecified; R00.2 Palpitations; I11.0 Hypertensive heart disease with heart failure; I69.354 Hemiplegia and hemiparesis following cerebral infarction affecting left non-dominant side; J43.9 Emphysema, unspecified; M19.90 Unspecified osteoarthritis, unspecified site; F41.9 Anxiety disorder, unspecified; G40.909 Epilepsy, unspecified, not intractable, without status epilepticus; E16.2 Hypoglycemia, unspecified; I48.0 Paroxysmal atrial fibrillation; I65.29 Occlusion and stenosis of unspecified carotid artery; Z87.891 Personal history of nicotine dependence; Z79.899 Other long term (current) drug therapy; Z79.01 Long term (current) use of anticoagulants; Z79.82 Long term (current) use of aspirin; Z87.01 Personal history of pneumonia (recurrent); Z85.3 Personal history of malignant neoplasm of breast; Z90.49 Acquired absence of other specified parts of digestive tract; Z86.718 Personal history of other venous thrombosis and embolism; Z82.49 Family history of ischemic heart disease and other diseases of the circulatory system; Z80.9 Family history of malignant neoplasm, unspecified; Z82.3 Family history of stroke
CPT/HCPCS: 99285; 36415; 93005; 80061; 80053; 80048; 84443; 83735; 84484; 85025 ×2; 85610; 85730; 71046; G0378 ×2

== ENCOUNTER 2022-10-27 15:54 | Emergency (ER) | payer MEDICARE, BC ==
[2022-10-27 16:05] VITALS: RESP 18; TEMP 98.1
[2022-10-27] MEDS ORDERED: ACETAMINOPHEN TAB 500 MG TAB PO STA (16:37)
--- NOTE | 2022-10-27 17:14 | ED ---
Fall HPI - General Chief Complaint: Fall Stated Complaint: Fall Time Seen by Provider: 10/27/22 16:15 Source: patient, EMS Mode of arrival: EMS - History of Present Illness Initial Comments: 87-year-old female presents to emergency department after she sustained a fall. States that she was in the kitchen at home when she slipped on a wet spot and fell onto her left side. EMS was called and assisted the patient to her feet. She had a small laceration on the inside of her ear. She denies any syncope. No headache or visual changes. No neck or back pain. EMS did place her in a c- collar. She denies any numbness, tingling or weakness in her extremities. No joint pain. She denies that she is on blood thinners however they are reported in the patient's med list. No other alleviating, precipitating or modifying factors - Related Data Home Medications Medication Instructions Recorded Confirmed Pravastatin Sodium [Pravachol] 40 mg PO DAILY 08/04/13 10/27/22 Ferrous Sulfate [Iron (65 MG 325 mg PO DAILY 02/05/17 10/27/22 Elemental)] Pantoprazole [Protonix] 40 mg PO DAILY 04/11/18 10/27/22 Albuterol Inhaler [Ventolin Hfa 2 puff INHALATION RT-Q6H PRN 04/29/22 10/27/22 Inhaler] Apixaban [Eliquis] 2.5 mg PO BID 04/29/22 10/27/22 DULoxetine HCL [Cymbalta] 30 mg PO DAILY 04/29/22 10/27/22 Denosumab [Prolia] 60 mg SQ Q180D 04/29/22 10/27/22 Furosemide [Lasix] 20 mg PO DAILY 04/29/22 10/27/22 Isosorbide Mononitrate ER [Imdur] 30 mg PO DAILY 04/29/22 10/27/22 Latanoprost [Latanoprost 0.005%] 1 drop BOTH EYES HS 04/29/22 10/27/22 Melatonin 1 mg PO HS 04/29/22 10/27/22 Acetaminophen-Codeine 300-30mg 1 tab PO BID PRN 07/20/22 10/27/22 [Tylenol w/codeine #3] Cholecalciferol [Vitamin D3 (25 25 mcg PO DAILY 09/30/22 10/27/22 Mcg = 1000 Iu)] levETIRAcetam [Keppra] 500 mg PO Q12HR 09/30/22 10/27/22 Ascorbic Acid [Vitamin C] 500 mg PO DAILY 10/27/22 10/27/22 Previous Rx's Medication Instructions Recorded Aspirin 81 mg PO DAILY 30 Days #30 tab 05/17/22 Allergies Allergy/AdvReac Type Severity Reaction Status Date / Time No Known Allergies Allergy Verified 10/27/22 17:59 Review of Systems ROS Statement: Those systems with pertinent positive or pertinent negative responses have been documented in the HPI. ROS Other: All systems not noted in ROS Statement are negative. 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,, emphysema; hypoglycemia, hx breast cancer, History of Any Multi-Drug Resistant Organisms: None Reported Past Surgical History: Back Surgery, Breast Surgery, Cholecystectomy, Heart Catheterization Additional Past Surgical History / Comment(s): L SUBCLAVIAN ARTERY BYPASS, Rt CAROTID ENDARTECTOMY, rt breast lumpectomy Past Anesthesia/Blood Transfusion Reactions: No Reported Reaction Additional Past Anesthesia/Blood Transfusion Reaction / Comment(s): PT RECIEVED BLOOD TRANSFUSION Past Psychological History: Anxiety Smoking Status: Former smoker Past Alcohol Use History: None Reported Past Drug Use History: None Reported - Past Family History Brother(s) Family Medical History: Cancer Sister(s) Family Medical History: Cancer Mother Family Medical History: Coronary Artery Disease (CAD) Additional Family Medical History / Comment(s): enlarged heart Father Family Medical History: Coronary Artery Disease (CAD), CVA/TIA General Exam Limitations: no limitations General appearance: alert, in no apparent distress Head exam: Present: atraumatic, normocephalic, normal inspection Eye exam: Present: normal appearance, PERRL, EOMI. Absent: scleral icterus, conjunctival injection, periorbital swelling ENT exam: Present: other (Small laceration - 5 mm on the inferior aspect of the left ear with mild oozing) Neck exam: Present: normal inspection. Absent: tenderness, meningismus, lymphadenopathy Respiratory exam: Present: normal lung sounds bilaterally. Absent: respiratory distress, wheezes, rales, rhonchi, stridor Cardiovascular Exam: Present: regular rate, normal rhythm, normal heart sounds. Absent: systolic murmur, diastolic murmur, rubs, gallop, clicks GI/Abdominal exam: Present: soft, normal bowel sounds. Absent: distended, tenderness, guarding, rebound, rigid Extremities exam: Present: normal inspection, full ROM, normal capillary refill. Absent: tenderness, pedal edema, joint swelling, calf tenderness Back exam: Present: normal inspection Neurological exam: Present: alert, oriented X3, CN II-XII intact Psychiatric exam: Present: normal affect, normal mood Skin exam: Present: warm, dry, intact, normal color. Absent: rash Course Vital Signs 10/27/22 10/27/22 10/27/22 15:58 16:51 17:00 Temperature 98.1 F Pulse Rate 50 L 49 L Respiratory 18 18 18 Rate Blood Pressure 145/89 113/74 113/74 O2 Sat by Pulse 93 L 100 97 Oximetry 10/27/22 18:21 Temperature Pulse Rate 48 L Respiratory 18 Rate Blood Pressure 172/75 O2 Sat by Pulse 100 Oximetry Medical Decision Making - Medical Decision Making Was pt. sent in by a medical professional or institution (, PA, [employer], urgent care, hospital, or alf...) When possible be specific @ -No Did you speak to anyone other than the patient for history (EMS, parent, family, police, friend...)? What history was obtained from this source @ -I spoke with EMS and the grandson Did you review nursing and triage notes (agree or disagree)? Why? @ -I reviewed and agree with nursing and triage notes Were old charts reviewed (outside hosp., previous admission, EMS record, old EKG, old radiological studies, urgent care reports/EKG's, alf records)? Report findings @ -No old charts were reviewed Differential Diagnosis (chest pain, altered mental status, abdominal pain women, abdominal pain men, vaginal bleeding, weakness, fever, dyspnea, syncope, headache, dizziness, GI bleed, back pain, seizure, CVA, palpatations, mental health, musculoskeletal)? @ -Subarachnoid hemorrhage, subdural hemorrhage, epidural hemorrhage, concussion, syncope EKG interpreted by me (3pts min.). @ -Yes and demonstrates sinus bradycardia with a rate of 46. MA interval 201. QRS 72. QTC 368. No acute ST segment elevations. Inverted T waves V2-V3. No high degree heart block X-rays interpreted by me (1pt min.). @ -None done CT interpreted by me (1pt min.). @ -Yes and demonstrates no acute intracranial process U/S interpreted by me (1pt. min.). @ -None done What testing was considered but not performed or refused? (CT, X-rays, U/S, labs)? Why? @ -None What meds were considered but not given or refused? Why? @ -None Did you discuss the management of the patient with other professionals (professionals i.e. , PA, [employer], lab, RT, psych nurse, director of social media marketing, science consultant, teacher, code enforcement officer, child support case officer)? Give summary @ -No Was smoking cessation discussed for >3mins.? @ -No Was critical care preformed (if so, how long)? @ -No Were there social determinants of health that impacted care today? How? (Homelessness, low income, unemployed, alcoholism, drug addiction, transportation, low edu. Level, literacy, decrease access to med. care, care home, rehab)? @ -No Was there de-escalation of care discussed even if they declined (Discuss DNR or withdrawal of care, Hospice)? DNR status @ -No What co-morbidities impacted this encounter? (DM, HTN, Smoking, COPD, CAD, Cancer, CVA, ARF, Chemo, Hep., AIDS, mental health diagnosis, sleep apnea, morbid obesity)? @ -CVA Was patient admitted / discharged? Hospital course, mention meds given and route, prescriptions, significant lab abnormalities, going to OR and other pertinent info. @ -Upon arrival patient was placed into room 25. A thorough history and physical exam is performed. She is alert and oriented and able to provide a history. States that she slipped on some water. She is sent for CT of her brain and cervical spine. This demonstrates no acute cranial process. No cervical fractures. C-collar is removed. I did place a small amount of glue on the patient's left ear laceration. Patient be discharged home at this time as instructed. Follow up with the primary care doctor in 2-4 days. return for any new or worsening symptoms Undiagnosed new problem with uncertain prognosis? @ -Yes Drug Therapy requiring intensive monitoring for toxicity (Heparin, Nitro, Insulin, Cardizem)? @ -No Were any procedures done? @ -No Diagnosis/symptom? @ -Acute fall, acute blunt ear trauma, ear laceration Acute, or Chronic, or Acute on Chronic? @ -Acute Uncomplicated (without systemic symptoms) or Complicated (systemic symptoms)? @ -Complicated Side effects of treatment? @ -No Exacerbation, Progression, or Severe Exacerbation? @ -No Poses a threat to life or bodily function? How? (Chest pain, [place], PR, pneumonia, PE, COPD, DKA, ARF, appy, cholecystitis, CVA, Diverticulitis, Homicidal, Suicidal, threat to staff... and all critical care pts) @ -No Disposition Clinical Impression: Fall, Head injury, Laceration of ear Disposition: HOME SELF-CARE Condition: Stable Instructions (If sedation given, give patient instructions): Fall Prevention for Older Adults (ED) Additional Instructions: Please follow-up with your primary care doctor within 1 week for reevaluation of your injuries. Return to the emergency room for any new or worsening symptoms Is patient prescribed a controlled substance at d/c from ED?: No Referrals: Tacos Saha MD [Primary Care Provider] - 1-2 days Time of Disposition: 18:14
--- NOTE | 2022-10-27 17:41 | CT ---
EXAMINATION TYPE: CT brain cspine wo con CT DLP: 1378.2 mGycm, Automated exposure control for dose reduction was used. DATE OF EXAM: 10/27/2022 5:23 PM COMPARISON: 07/20/2022 CLINICAL INDICATION:Female, 87 years old with history of fall, head injury, ear lac; fall TECHNIQUE: Brain: Multiple axial CT images of the brain were obtained without IV contrast. Cspine: Axial CT images from the skull base to the inferior aspect of T2 we obtained without intraven ous contrast. Coronal and sagittal reformatted images were also reviewed. FINDINGS: Brain: Extra-axial spaces: No abnormal extra-axial fluid collections. Ventricular system: Dilation and proportion to cerebral atrophy. Cerebral parenchyma: Cerebral atrophy remote injury of the right frontal lobe, right thalamus. No acu te intraparenchymal hemorrhage or mass effect. The smallwood-white junction is well differentiated. Scatt ered hypoattenuating areas are seen within the white matter. Cerebellum: Remote injury of the left cerebellum. Mass effect: No evidence of midline shift. Intracranial vasculature: Atherosclerotic calcifications of the intracranial vessels. Soft tissues: Normal. Calvarium/osseous structures: No depressed skull fracture. Paranasal sinuses and mastoid air cells: Clear. Visualized orbits: Bilaterally aphakia. Cervical spine: Fracture: None. Osseous structures: Multilevel degenerative disc disease changes with endplate spurring and disc oste ophyte complex's. There are large osteophytes on the anterior and posterior aspect of the cervical sp ine. Vertebral alignment: Within normal limits. Spinal canal/Neural Foramina: No evidence of significant spinal canal narrowing. No evidence for sign ificant neural foraminal stenosis. Neck soft tissues: Prevertebral soft tissues are within normal limits. Other: The airway is patent. The lung apices are clear. IMPRESSION: 1. No acute intracranial process. 2. Encephalomalacia of the right frontal, right thalamus, left occipital of the right frontal lobe f rom prior injury. 3. Nonspecific white matter changes, likely secondary to chronic small vessel ischemic disease. 4. No evidence of cervical spine fracture. 5. Moderate to severe multilevel degenerative disc disease.
[2022-10-27] MEDS ORDERED: TOPICAL SKIN ADHESIVE 1 EACH AMP TOPICAL ONE ×2 (17:51→18:00)
[2022-10-27 18:25] VITALS: BP 172/75; PULSE 48
== END 2022-10-27 18:30 | disposition home or self-care (01) ==
LOC: EC 15:54
DX: S01.312A Laceration without foreign body of left ear, initial encounter (principal); I11.0 Hypertensive heart disease with heart failure; J44.9 Chronic obstructive pulmonary disease, unspecified; I50.9 Heart failure, unspecified; E78.5 Hyperlipidemia, unspecified; F41.9 Anxiety disorder, unspecified; Z79.01 Long term (current) use of anticoagulants; Z87.891 Personal history of nicotine dependence; Z90.49 Acquired absence of other specified parts of digestive tract; Z86.73 Personal history of transient ischemic attack (TIA), and cerebral infarction without residual deficits; Z86.718 Personal history of other venous thrombosis and embolism; Z79.899 Other long term (current) drug therapy; W01.0XXA Fall on same level from slipping, tripping and stumbling without subsequent striking against object, initial encounter; Y92.000 Kitchen of unspecified non-institutional (private) residence as the place of occurrence of the external cause
CPT/HCPCS: 12011; 70450; 72125; 93005; 99285

== ENCOUNTER 2022-12-18 05:53 | Inpatient (IN) | payer MEDICARE, BC ==
--- NOTE | 2022-12-18 06:47 | ED ---
Altered Mental Status HPI - General Source: patient Mode of arrival: EMS Limitations: altered mental status <Suzy Keys - Last Filed: 12/18/22 06:47> <Prabhakar Jacques - Last Filed: 12/18/22 13:38> - General Chief Complaint: Altered Mental Status Stated Complaint: altered mental Time Seen by Provider: 12/18/22 06:10 - History of Present Illness Initial Comments: 87-year-old female past history of hypertension, hyperlipidemia, CVA who presents to the emergency department by EMS. Son presents to the hospital and states that the patient has been confused. States that she has not slept in 3 days. She is hallucinating. She reports that there are people in the house. He also states that she is talking to people that have passed on. When I evaluate the patient she reports that the only problem is her son. She states that he is "in his late 30s and thinks he knows everything". Patient's son confirms that he is 66 years old. She thinks the date is March 05. She has no complaints and wants to go home. Son states that she did have similar symptoms in the past when she had a urinary tract infection. She has been complaining of some low back pain. No known falls recently. She does not take any blood thinners. No fevers. No medication changes. No other alleviating, precipitating or modifying factors (Suzy Keys) - Related Data Home Medications Medication Instructions Recorded Confirmed Pravastatin Sodium [Pravachol] 40 mg PO DAILY 08/04/13 12/18/22 Ferrous Sulfate [Iron (65 MG 325 mg PO DAILY 02/05/17 12/18/22 Elemental)] Pantoprazole [Protonix] 40 mg PO DAILY 04/11/18 12/18/22 Albuterol Inhaler [Ventolin Hfa 2 puff INHALATION RT-Q6H PRN 04/29/22 12/18/22 Inhaler] Apixaban [Eliquis] 2.5 mg PO BID 04/29/22 12/18/22 DULoxetine HCL [Cymbalta] 30 mg PO DAILY 04/29/22 12/18/22 Denosumab [Prolia] 60 mg SQ Q180D 04/29/22 12/18/22 Furosemide [Lasix] 20 mg PO DAILY 04/29/22 12/18/22 Isosorbide Mononitrate ER [Imdur] 30 mg PO DAILY 04/29/22 12/18/22 Melatonin 1 mg PO HS 04/29/22 12/18/22 Acetaminophen-Codeine 300-30mg 1 tab PO BID PRN 07/20/22 12/18/22 [Tylenol w/codeine #3] Cholecalciferol [Vitamin D3 (25 25 mcg PO DAILY 09/30/22 12/18/22 Mcg = 1000 Iu)] levETIRAcetam [Keppra] 500 mg PO Q12HR 09/30/22 12/18/22 Ascorbic Acid [Vitamin C] 500 mg PO DAILY 10/27/22 12/18/22 Previous Rx's Medication Instructions Recorded Aspirin 81 mg PO DAILY 30 Days #30 tab 05/17/22 Allergies Allergy/AdvReac Type Severity Reaction Status Date / Time No Known Allergies Allergy Verified 12/18/22 09:25 Review of Systems ROS Other: All systems not noted in ROS Statement are negative. <Suzy Keys - Last Filed: 12/18/22 06:47> ROS Other: All systems not noted in ROS Statement are negative. <Prabhakar Jacques - Last Filed: 12/18/22 13:38> ROS Statement: Those systems with pertinent positive or pertinent negative responses have been documented in the HPI. 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,, emphysema; hypoglycemia, hx breast cancer, History of Any Multi-Drug Resistant Organisms: None Reported Past Surgical History: Back Surgery, Breast Surgery, Cholecystectomy, Heart Catheterization Additional Past Surgical History / Comment(s): L SUBCLAVIAN ARTERY BYPASS, Rt CAROTID ENDARTECTOMY, rt breast lumpectomy Past Anesthesia/Blood Transfusion Reactions: No Reported Reaction Additional Past Anesthesia/Blood Transfusion Reaction / Comment(s): PT RECIEVED BLOOD TRANSFUSION Past Psychological History: Anxiety Smoking Status: Former smoker Past Alcohol Use History: None Reported Past Drug Use History: None Reported - Past Family History Brother(s) Family Medical History: Cancer Sister(s) Family Medical History: Cancer Mother Family Medical History: Coronary Artery Disease (CAD) Additional Family Medical History / Comment(s): enlarged heart Father Family Medical History: Coronary Artery Disease (CAD), CVA/TIA <Suzy Keys Sridhar - Last Filed: 12/18/22 06:47> General Exam Limitations: altered mental status General appearance: alert, in no apparent distress Head exam: Present: atraumatic, normocephalic, normal inspection Eye exam: Present: normal appearance, PERRL, EOMI. Absent: scleral icterus, conjunctival injection, periorbital swelling ENT exam: Present: normal exam, mucous membranes moist Neck exam: Present: normal inspection. Absent: tenderness, meningismus, lymphadenopathy Respiratory exam: Present: normal lung sounds bilaterally. Absent: respiratory distress, wheezes, rales, rhonchi, stridor Cardiovascular Exam: Present: regular rate, normal rhythm, normal heart sounds. Absent: systolic murmur, diastolic murmur, rubs, gallop, clicks GI/Abdominal exam: Present: soft, normal bowel sounds. Absent: distended, tenderness, guarding, rebound, rigid Extremities exam: Present: normal inspection, full ROM, normal capillary refill. Absent: tenderness, pedal edema, joint swelling, calf tenderness Back exam: Present: normal inspection Neurological exam: Present: alert, CN II-XII intact, other (Oriented to self) Psychiatric exam: Present: normal affect, normal mood Skin exam: Present: warm, dry, intact, normal color. Absent: rash <Suzy Keys Sridhar - Last Filed: 12/18/22 06:47> Course Vital Signs 12/18/22 12/18/22 12/18/22 06:02 09:29 10:38 Temperature 97.6 F Pulse Rate 93 82 91 Respiratory 18 18 Rate Blood Pressure 149/82 184/101 186/94 O2 Sat by Pulse 95 99 95 Oximetry 12/18/22 12:08 Temperature Pulse Rate 95 Respiratory 19 Rate Blood Pressure 167/85 O2 Sat by Pulse 95 Oximetry Medical Decision Making <AbdelrahmanSuzy mejias Sridhar Donnelly Last Filed: 12/18/22 06:47> - Lab Data Result diagrams: 12/18/22 06:34 12/18/22 06:34 <Prabhakar Jacques - Last Filed: 12/18/22 13:38> - Medical Decision Making Was pt. sent in by a medical professional or institution (SAMPSON Iraheta, RESIDENT SERVICES COORDINATOR, urgent care, hospital, or usp...) When possible be specific @ -No Did you speak to anyone other than the patient for history (EMS, parent, family, police, friend...)? What history was obtained from this source @ -I spoke with EMS and the patient's son Did you review nursing and triage notes (agree or disagree)? Why? @ -I reviewed and agree with nursing and triage notes Were old charts reviewed (outside hosp., previous admission, EMS record, old EKG, old radiological studies, urgent care reports/EKG's, usp records)? Report findings @ -I reviewed patient's last ED visit where she was here for a fall Differential Diagnosis (chest pain, altered mental status, abdominal pain women, abdominal pain men, vaginal bleeding, weakness, fever, dyspnea, syncope, heada ivan, dizziness, GI bleed, back pain, seizure, CVA, palpatations, mental health, musculoskeletal)? @ -Differential Altered Mental Status: Hypoglycemia, DKA, hypercapnia, ETOH, overdose, CO poisoning, trauma, myxedema coma, HTN encephalopathy, infection, encephalitis, psychosis, intercranial hemorrhage, hepatic encephalopathy, meningitis, CVA, this is not meant to be an all-inclusive list EKG interpreted by me (3pts min.). @ -Yes and demonstrates sinus rhythm with a rate of 90. TX interval 269. QRS 70. QTC of 328. No acute ST segment elevations or depressions X-rays interpreted by me (1pt min.). @ -Yes CT interpreted by me (1pt min.). @ -Yes U/S interpreted by me (1pt. min.). @ -None done What testing was considered but not performed or refused? (CT, X-rays, U/S, labs)? Why? @ -None What meds were considered but not given or refused? Why? @ -None Did you discuss the management of the patient with other professionals ( professionals i.e. SAMPSON Iraheta, RESIDENT SERVICES COORDINATOR, lab, RT, psych nurse, older adult social work specialist, objects conservator, teacher, dispatch officer, bilingual patient support caseworker)? Give summary @ -Admitting physician Was smoking cessation discussed for >3mins.? @ -No Was critical care preformed (if so, how long)? @ -No Were there social determinants of health that impacted care today? How? (Homelessness, low income, unemployed, alcoholism, drug addiction, transportation, low edu. Level, literacy, decrease access to med. care, snf, rehab)? @ -No Was there de-escalation of care discussed even if they declined (Discuss DNR or withdrawal of care, Hospice)? DNR status @ -No What co-morbidities impacted this encounter? (DM, HTN, Smoking, COPD, CAD, Cancer, CVA, ARF, Chemo, Hep., AIDS, mental health diagnosis, sleep apnea, morbid obesity)? @ -CVA Was patient admitted / discharged? Hospital course, mention meds given and route, prescriptions, significant lab abnormalities, going to OR and other pertinent info. @ -Upon arrival patient was placed into room 16. There are history of physical exam was performed. Patient is only oriented to self. Spoke with the patient's son who states that she is delusional. Recommended workup for which the patient was agreeable. Laboratory studies, imaging are all pending at this time. Patient will be signed out to Dr. Jacques for disposition (Suzy Keys) Patient reevaluated and resting comfortably in bed. Patient is alert and somewhat appropriate. Chart reviewed. Family updated. Patient updated. Patient has questionable urinary tract infection and will be covered with antibiotics. Patient will be admitted. Admission orders written. Neurology will be placed on consult. Family has concerns and patient agrees that she has not slept in the past couple of days. Case was discussed with Dr. cerrato, who will admit [facility] - Lab Data Lab Results 12/18/22 12/18/22 12/18/22 Range/Units 06:34 06:34 06:34 WBC 7.7 (3.8-10.6) k/uL RBC 4.74 (3.80-5.40) m/uL Hgb 13.4 (11.4-16.0) gm/dL Hct 44.4 (34.0-46.0) % MCV 93.7 (80.0-100.0) fL MCH 28.4 (25.0-35.0) pg MCHC 30.3 L (31.0-37.0) g/dL RDW 16.3 H (11.5-15.5) % Plt Count 239 (150-450) k/uL MPV 6.8 Neutrophils % 58 % Lymphocytes % 30 % Monocytes % 7 % Eosinophils % 3 % Basophils % 0 % Neutrophils # 4.4 (1.3-7.7) k/uL Lymphocytes # 2.3 (1.0-4.8) k/uL Monocytes # 0.5 (0-1.0) k/uL Eosinophils # 0.2 (0-0.7) k/uL Basophils # 0.0 (0-0.2) k/uL Hypochromasia Marked Anisocytosis Slight PT 11.3 (10.0-12.5) sec INR 1.0 (<1.2) APTT 20.8 L (22.0-30.0) sec Sodium (137-145) mmol/L Potassium (3.5-5.1) mmol/L Chloride (98-107) mmol/L Carbon Dioxide (22-30) mmol/L Anion Gap mmol/L BUN (7-17) mg/dL Creatinine (0.52-1.04) mg/dL Est GFR (CKD-EPI)AfAm (>60 ml/min/1.73 sqM) Est GFR (CKD-EPI)NonAf (>60 ml/min/1.73 sqM) Glucose (74-99) mg/dL POC Glucose (mg/dL) (70-110) mg/dL POC Glu Drop [employer]ge Operator ID Calcium (8.4-10.2) mg/dL Total Bilirubin (0.2-1.3) mg/dL AST (14-36) U/L ALT (4-34) U/L Alkaline Phosphatase (38-126) U/L Troponin I (0.000-0.034) ng/mL Total Protein (6.3-8.2) g/dL Albumin (3.5-5.0) g/dL Urine Color Yellow Urine Appearance Clear (Clear) Urine pH 7.0 (5.0-8.0) Ur Specific Oracle 1.020 (1.001-1.035) Urine Protein Trace (Negative) Urine Glucose (UA) Negative (Negative) Urine Ketones Negative (Negative) Urine Blood Negative (Negative) Urine Nitrite Negative (Negative) Urine Bilirubin Negative (Negative) Urine Urobilinogen <2.0 (<2.0) mg/dL Ur Leukocyte Esterase Large (Negative) Urine RBC 2 (0-5) /hpf Urine WBC 50 H (0-5) /hpf Ur Squamous Epith Cells 50 H (0-4) /hpf Urine Bacteria Rare H (None) /hpf Urine Mucus Occasional H (None) /hpf Urine Opiates Screen Detected H (NotDetected) Ur Oxycodone Screen Not Detected (NotDetected) Urine Methadone Screen Not Detected (NotDetected) Ur Propoxyphene Screen Not Detected (NotDetected) Ur Barbiturates Screen Not Detected (NotDetected) U Tricyclic Antidepress Not Detected (NotDetected) Ur Phencyclidine Scrn Not Detected (NotDetected) Ur Amphetamines Screen Not Detected (NotDetected) U Methamphetamines Scrn Not Detected (NotDetected) U Benzodiazepines Scrn Not Detected (NotDetected) Urine Cocaine Screen Not Detected (NotDetected) U Marijuana (THC) Screen Not Detected (NotDetected) Serum Alcohol mg/dL 12/18/22 12/18/22 12/18/22 Range/Units 06:34 06:34 06:57 WBC (3.8-10.6) k/uL RBC (3.80-5.40) m/uL Hgb (11.4-16.0) gm/dL Hct (34.0-46.0) % MCV (80.0-100.0) fL MCH (25.0-35.0) pg MCHC (31.0-37.0) g/dL RDW (11.5-15.5) % Plt Count (150-450) k/uL MPV Neutrophils % % Lymphocytes % % Monocytes % % Eosinophils % % Basophils % % Neutrophils # (1.3-7.7) k/uL Lymphocytes # (1.0-4.8) k/uL Monocytes # (0-1.0) k/uL Eosinophils # (0-0.7) k/uL Basophils # (0-0.2) k/uL Hypochromasia Anisocytosis PT (10.0-12.5) sec INR (<1.2) APTT (22.0-30.0) sec Sodium 140 (137-145) mmol/L Potassium 4.6 (3.5-5.1) mmol/L Chloride 99 (98-107) mmol/L Carbon Dioxide 33 H (22-30) mmol/L Anion Gap 8 mmol/L BUN 20 H (7-17) mg/dL Creatinine 0.76 (0.52-1.04) mg/dL Est GFR (CKD-EPI)AfAm 82 (>60 ml/min/1.73 sqM) Est GFR (CKD-EPI)NonAf 71 (>60 ml/min/1.73 sqM) Glucose 92 (74-99) mg/dL POC Glucose (mg/dL) 86 (70-110) mg/dL POC Glu Drop [employer]ge Operator ID Anita Robbins Calcium 9.4 (8.4-10.2) mg/dL Total Bilirubin 0.5 (0.2-1.3) mg/dL AST 38 H (14-36) U/L ALT 15 (4-34) U/L Alkaline Phosphatase 56 (38-126) U/L Troponin I 0.016 (0.000-0.034) ng/mL Total Protein 7.4 (6.3-8.2) g/dL Albumin 4.3 (3.5-5.0) g/dL Urine Color Urine Appearance (Clear) Urine pH (5.0-8.0) Ur Specific Oracle (1.001-1.035) Urine Protein (Negative) Urine Glucose (UA) (Negative) Urine Ketones (Negative) Urine Blood (Negative) Urine Nitrite (Negative) Urine Bilirubin (Negative) Urine Urobilinogen (<2.0) mg/dL Ur Leukocyte Esterase (Negative) Urine RBC (0-5) /hpf Urine WBC (0-5) /hpf Ur Squamous Epith Cells (0-4) /hpf Urine Bacteria (None) /hpf Urine Mucus (None) /hpf Urine Opiates Screen (NotDetected) Ur Oxycodone Screen (NotDetected) Urine Methadone Screen (NotDetected) Ur Propoxyphene Screen (NotDetected) Ur Barbiturates Screen (NotDetected) U Tricyclic Antidepress (NotDetected) Ur Phencyclidine Scrn (NotDetected) Ur Amphetamines Screen (NotDetected) U Methamphetamines Scrn (NotDetected) U Benzodiazepines Scrn (NotDetected) Urine Cocaine Screen (NotDetected) U Marijuana (THC) Screen (NotDetected) Serum Alcohol <10 mg/dL Disposition <Suzy Keys - Last Filed: 12/18/22 06:47> Is patient prescribed a controlled substance at d/c from ED?: No Time of Disposition: 13:37 <Prabhakar Jacques - Last Filed: 12/18/22 13:38> Clinical Impression: Altered mental status, Urinary tract infection, Altered Mental Status Disposition: ADMITTED IP TO THIS HOSP Referrals: Tacos Saha MD [Primary Care Provider] - 1-2 days
[2022-12-18 06:58] LABS: Anisocytosis Slight; Basophils % (A) 0 %; Eosinophils # (A) 0.2 k/uL (0-0.7); Eosinophils % (A) 3 %; HCT 44.4 % (34.0-46.0); HGB 13.4 gm/dL (11.4-16.0); Hypochromasia Marked; Lymphocytes # (A) 2.3 k/uL (1.0-4.8); Lymphocytes % (A) 30 %; MCH 28.4 pg (25.0-35.0); MCHC 30.3 g/dL (31.0-37.0); MCV 93.7 fL (80.0-100.0); Mean Platelet Volume 6.8; Monocytes # (A) 0.5 k/uL (0-1.0); Monocytes % (A) 7 %; Neutrophils # (A) 4.4 k/uL (1.3-7.7); Neutrophils % (A) 58 %; Platelet Count 239 k/uL (150-450); RBC 4.74 m/uL (3.80-5.40); RDW 16.3 % (11.5-15.5); WBC 7.7 k/uL (3.8-10.6)
[2022-12-18 06:59] LABS: Glucose,Whole Blood 86 mg/dL (70-110)
[2022-12-18 07:07] LABS: ALT 15 U/L (4-34); AST 38 U/L (14-36); African American GFR (CKD) 82 (>60 ml/min/1.73 sqM); Albumin 4.3 g/dL (3.5-5.0); Alcohol <10 mg/dL; Alkaline Phosphatase 56 U/L (38-126); Anion Gap 8 mmol/L; Blood Urea Nitrogen 20 mg/dL (7-17); Calcium 9.4 mg/dL (8.4-10.2); Carbon Dioxide 33 mmol/L (22-30); Chloride 99 mmol/L (98-107); Glucose 92 mg/dL (74-99); Non-African American GFR(CKD) 71 (>60 ml/min/1.73 sqM); Potassium 4.6 mmol/L (3.5-5.1); Sodium 140 mmol/L (137-145); Total Bilirubin 0.5 mg/dL (0.2-1.3); Total Protein 7.4 g/dL (6.3-8.2)
[2022-12-18 07:13] LABS: Prothrombin Time 11.3 sec (10.0-12.5)
--- NOTE | 2022-12-18 07:29 | XR ---
EXAMINATION TYPE: XR chest 2V DATE OF EXAM: 12/18/2022 7:02 AM CLINICAL INDICATION:Female, 87 years old with history of altered mental status; COMPARISON: Chest radiographs from 09/30/2022. TECHNIQUE: XR chest 2V Frontal and lateral views of the chest. FINDINGS: Lungs/Pleura: Multifocal airspace opacities. No evidence of pneumothorax or pleural effusion. Pulmonary vascularity: Unremarkable. Heart/mediastinum: Cardiomediastinal silhouette is unremarkable. Musculoskeletal: No acute osseous pathology. IMPRESSION: Subtle scattered opacities given the cardiomegaly correlate for atypical pneumonia versus congestive heart failure.
--- NOTE | 2022-12-18 07:38 | CT ---
EXAMINATION TYPE: CT brain wo con CT DLP: 1100.4 mGycm, Automated exposure control for dose reduction was used. DATE OF EXAM: 12/18/2022 7:14 AM COMPARISON: 10/27/2022. CLINICAL INDICATION:Female, 87 years old with history of Altered mental status, ams TECHNIQUE: Brain: Axial CT images of the brain were obtained with coronal and sagittal reformats created and rev iewed. Contrast used: None. Oral contrast used: None. FINDINGS: Brain: Extra-axial spaces: No abnormal extra-axial fluid collections. Ventricular system: Dilatation in proportion to cerebral atrophy. Cerebral parenchyma: Similar right frontal lobe injury with encephalomalacia. Cerebral atrophy. No ac igiugig intraparenchymal hemorrhage or mass effect. The smallwood-white junction is well differentiated. Cerebellum: Similar left superior cerebellar injury with encephalomalacia. Mass effect: No evidence of midline shift. Intracranial vasculature: Atherosclerotic calcifications of the intracranial vessels. Soft tissues: Normal. Calvarium/osseous structures: No depressed skull fracture. Paranasal sinuses and mastoid air cells: Mild scattered paranasal sinus disease. Visualized orbits: Bilateral aphakia IMPRESSION: 1. No acute intracranial process. 2. Remote CVAs involving the right frontal lobe and left superior cerebellum 3. Nonspecific white matter changes likely secondary to chronic microangiopathy.
[2022-12-18 07:43] LABS: Partial Thromboplastin Time 20.8 sec (22.0-30.0)
[2022-12-18 09:57] LABS: Amphetamine Screen,Urine Not Detected (NotDetected); Barbiturate Screen,Urine Not Detected (NotDetected); Benzodiazepines Screen,Urine Not Detected (NotDetected); Cocaine Screen,Urine Not Detected (NotDetected); Methadone Screen, Urine Not Detected (NotDetected); Opiate Screen,Urine Detected (NotDetected); Oxycodone Screen, Urine Not Detected (NotDetected); Phencyclidine Screen,Urine Not Detected (NotDetected); Tricyclic Antidepressant,Urine Not Detected (NotDetected); Urn Cannabinoid Scrn Not Detected (NotDetected)
[2022-12-18] MEDS ORDERED: Acetaminophen-Codeine 300-30mg TAB PO PRN (10:22)
[2022-12-18] MEDS: FERROUS SULFATE 325 MG TAB PO SCH (10:46)
[2022-12-18] MEDS: DULoxetine HCL 30 MG CAPSULE.DR PO SCH (10:46)
[2022-12-18] MEDS: ASPIRIN 81 MG PO SCH (10:46)
[2022-12-18] MEDS: APIXABAN 2.5 MG TABLET PO SCH ×2 (10:46→21:46)
[2022-12-18] MEDS: CHOLECALCIFEROL 25 MCG (1000 IU) TABLET PO SCH (10:46)
[2022-12-18] MEDS: PRAVASTATIN SODIUM 40 MG TAB PO SCH (10:46)
[2022-12-18] MEDS: levETIRAcetam 500 MG TAB PO SCH ×2 (10:46→21:46)
[2022-12-18] MEDS: PANTOPRAZOLE 40 MG TABLET PO SCH (10:47)
[2022-12-18] MEDS: ASCORBIC ACID 500 MG TAB PO SCH (10:47)
[2022-12-18] MEDS: ISOSORBIDE MONONITRATE ER 30 MG TAB.ER.24H PO SCH (10:47)
[2022-12-18 12:31] LABS: Appearance,Urine Clear (Clear); Bilirubin,Urine Negative (Negative); Blood,Urine Negative (Negative); Color,Urine Yellow; Glucose,Urine (UA) Negative (Negative); Ketones,Urine Negative (Negative); Leukocyte Esterase,Urine Large (Negative); Nitrite,Urine Negative (Negative); Protein,Urine Trace (Negative); Urobilinogen,Urine <2.0 mg/dL (<2.0)
[2022-12-18 12:33] LABS: Bacteria,Urine Rare /hpf; Mucus,Urine Occasional /hpf; RBC,Urine 2 /hpf (0-5); Squamous Epithelial Cell,Urine 50 /hpf (0-4); WBC,Urine 50 /hpf (0-5)
[2022-12-18] MEDS ORDERED: NALOXONE 0.4 MG/ML 1 ML VIAL IV PRN (13:38)
[2022-12-18] MEDS: SODIUM CHLORIDE 0.9% 1,000 ML IV SCH ×2 (14:58→17:46)
[2022-12-18] MEDS ORDERED: ONDANSETRON 4 MG/2 ML VIAL IVP PRN (15:10)
--- NOTE | 2022-12-18 15:14 | P.HPIM ---
History of Present Illness H&P Date: 12/18/22 Chief Complaint: Altered mental status * 87-year-old patient with past medical history significant for CVA, hyperlipidemia, hypertension seizure disorder history of DVT or to the emergency department by family secondary to increased confusion. Per chart review patient has not slept in 3 days and was hallucinating and was brought to the ED for further evaluation patient had similar presentation in the past and was seen by neurology in June 2022 for concern for hand tremors and suspicion for focal seizure. * Workup initiated in ER included CBC which showed normal WC count normal hemoglobin and platelet count INR within normal limits * Serum chemistry showed sodium of 140 potassium 4.6, Kasia 33 BUN 20 creatinine 0.76 AST of 38 ALT of 15 troponin within normal limits * Urinalysis obtained showed WBC bacteria excessive squamous epithelial cells appeared urinalysis is ordered * Patient had urine toxicology done which was positive for opiates * CT head obtained in ED was negative * X-ray shows subtle opacity however no suspicion for pneumonia at this point normal white cell count * EKG obtained in ER showed sinus rhythm * Patient is a poor historian historian, No family at bedside during my eval, Chart reviewed in History taking REVIEW OF SYSTEMS: Confusion, hallucination CONSTITUTIONAL: No fever, no malaise, no fatigue. HEENT: No recent visual problems or hearing problems. Denied any sore throat. CARDIOVASCULAR: No chest pain, orthopnea, PND, no palpitations, no syncope. PULMONARY: No shortness of breath, no cough, no hemoptysis. GASTROINTESTINAL: No diarrhea, no nausea, no vomiting, no abdominal pain. NEUROLOGICAL: No headaches, no weakness, no numbness. HEMATOLOGICAL: Denies any bleeding or petechiae. GENITOURINARY: Denies any burning micturition, frequency, or urgency. MUSCULOSKELETAL/RHEUMATOLOGICAL: Denies any joint pain, swelling, or any muscle pain. ENDOCRINE: Denies any polyuria or polydipsia. PHYSICAL EXAMINATION: GENERAL: The patient is alert and oriented 1 , not in any acute distress. Well developed, well nourished. HEENT: Pupils are round and equally reacting to light. EOMI. CARDIOVASCULAR: S1 and S2 present. No murmurs, rubs, or gallops. PULMONARY: Chest is clear to auscultation, no wheezing or crackles. ABDOMEN: Soft, nontender, nondistended, normoactive bowel sounds. No palpable organomegaly. MUSCULOSKELETAL: No joint swelling or deformity. EXTREMITIES: No cyanosis, clubbing, or pedal edema. 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,, emphysema; hypoglycemia, hx breast cancer, History of Any Multi-Drug Resistant Organisms: None Reported Past Surgical History: Back Surgery, Breast Surgery, Cholecystectomy, Heart Catheterization Additional Past Surgical History / Comment(s): L SUBCLAVIAN ARTERY BYPASS, Rt CAROTID ENDARTECTOMY, rt breast lumpectomy Past Anesthesia/Blood Transfusion Reactions: No Reported Reaction Additional Past Anesthesia/Blood Transfusion Reaction / Comment(s): PT RECIEVED BLOOD TRANSFUSION Past Psychological History: Anxiety Smoking Status: Former smoker Past Alcohol Use History: None Reported Past Drug Use History: None Reported - Past Family History Brother(s) Family Medical History: Cancer Sister(s) Family Medical History: Cancer Mother Family Medical History: Coronary Artery Disease (CAD) Additional Family Medical History / Comment(s): enlarged heart Father Family Medical History: Coronary Artery Disease (CAD), CVA/TIA Medications and Allergies Home Medications Medication Instructions Recorded Confirmed Type Pravastatin Sodium [Pravachol] 40 mg PO DAILY 08/04/13 12/18/22 History Ferrous Sulfate [Iron (65 MG 325 mg PO DAILY 02/05/17 12/18/22 History Elemental)] Pantoprazole [Protonix] 40 mg PO DAILY 04/11/18 12/18/22 History Albuterol Inhaler [Ventolin Hfa 2 puff INHALATION RT-Q6H PRN 04/29/22 12/18/22 History Inhaler] Apixaban [Eliquis] 2.5 mg PO BID 04/29/22 12/18/22 History DULoxetine HCL [Cymbalta] 30 mg PO DAILY 04/29/22 12/18/22 History Denosumab [Prolia] 60 mg SQ Q180D 04/29/22 12/18/22 History Furosemide [Lasix] 20 mg PO DAILY 04/29/22 12/18/22 History Isosorbide Mononitrate ER [Imdur] 30 mg PO DAILY 04/29/22 12/18/22 History Melatonin 1 mg PO HS 04/29/22 12/18/22 History Aspirin 81 mg PO DAILY 30 Days #30 tab 05/17/22 12/18/22 Rx Acetaminophen-Codeine 300-30mg 1 tab PO BID PRN 07/20/22 12/18/22 History [Tylenol w/codeine #3] Cholecalciferol [Vitamin D3 (25 25 mcg PO DAILY 09/30/22 12/18/22 History Mcg = 1000 Iu)] levETIRAcetam [Keppra] 500 mg PO Q12HR 09/30/22 12/18/22 History Ascorbic Acid [Vitamin C] 500 mg PO DAILY 10/27/22 12/18/22 History Allergies Allergy/AdvReac Type Severity Reaction Status Date / Time No Known Allergies Allergy Verified 12/18/22 09:25 Physical Exam Vitals: Vital Signs Temp Pulse Resp BP Pulse Ox 12/18/22 12:08 95 19 167/85 95 12/18/22 10:38 91 186/94 95 12/18/22 09:29 82 18 184/101 99 12/18/22 06:02 97.6 F 93 18 149/82 95 Intake and Output 12/17/22 12/18/22 12/18/22 22:59 06:59 14:59 Other: Weight 65.771 kg Results CBC & Chem 7: 12/18/22 06:34 12/18/22 06:34 Labs: Abnormal Lab Results - Last 24 Hours (Table) 12/18/22 12/18/22 12/18/22 Range/Units 06:34 06:34 06:34 MCHC 30.3 L (31.0-37.0) g/dL RDW 16.3 H (11.5-15.5) % APTT 20.8 L (22.0-30.0) sec Carbon Dioxide (22-30) mmol/L BUN (7-17) mg/dL AST (14-36) U/L Urine WBC 50 H (0-5) /hpf Ur Squamous Epith Cells 50 H (0-4) /hpf Urine Bacteria Rare H (None) /hpf Urine Mucus Occasional H (None) /hpf Urine Opiates Screen Detected H (NotDetected) 12/18/22 Range/Units 06:34 MCHC (31.0-37.0) g/dL RDW (11.5-15.5) % APTT (22.0-30.0) sec Carbon Dioxide 33 H (22-30) mmol/L BUN 20 H (7-17) mg/dL AST 38 H (14-36) U/L Urine WBC (0-5) /hpf Ur Squamous Epith Cells (0-4) /hpf Urine Bacteria (None) /hpf Urine Mucus (None) /hpf Urine Opiates Screen (NotDetected) Assessment and Plan Assessment: Assessment and plan Urinary tract infection Acute encephalopathy rule out neurological etiology History of seizure disorder History of DVT Dyslipidemia * In regards to urinary tract infection, repeat UA ordered, continue patient on IV Rocephin continue IV hydration * In regards to acute encephalopathy CT head negative, neurology consulted * In regards to history of seizure continue Keppra * In regards to history of DVT continue Eliquis * CODE STATUS is full code
[2022-12-18] MEDS: hydrALAZINE HCL 20 MG/ML 1 ML VIAL IVP PRN (15:50)
[2022-12-18] MEDS: MELATONIN 1 MG TAB PO SCH (21:46)
[2022-12-19] MEDS: hydrALAZINE HCL 20 MG/ML 1 ML VIAL IVP PRN (01:33)
[2022-12-19] MEDS: SODIUM CHLORIDE 0.9% 1,000 ML IV SCH ×3 (03:18→11:59)
[2022-12-19 07:33] LABS: ALT 14 U/L (4-34); AST 45 U/L (14-36); African American GFR (CKD) >90 (>60 ml/min/1.73 sqM); Albumin 3.9 g/dL (3.5-5.0); Albumin/Globulin Ratio 1.4; Alkaline Phosphatase 45 U/L (38-126); Anion Gap 8 mmol/L; Blood Urea Nitrogen 15 mg/dL (7-17); Calcium 9.1 mg/dL (8.4-10.2); Carbon Dioxide 27 mmol/L (22-30); Chloride 103 mmol/L (98-107); Globulin 2.8 g/dL; Glucose 94 mg/dL (74-99); Non-African American GFR(CKD) 84 (>60 ml/min/1.73 sqM); Sodium 138 mmol/L (137-145); Total Bilirubin 0.6 mg/dL (0.2-1.3); Total Protein 6.7 g/dL (6.3-8.2)
[2022-12-19 07:41] LABS: Potassium 5.4 mmol/L (3.5-5.1)
[2022-12-19 08:22] LABS: Anisocytosis Slight; Basophils # (A) 0.1 k/uL (0-0.2); Basophils % (A) 1 %; Eosinophils # (A) 0.2 k/uL (0-0.7); Eosinophils % (A) 3 %; HCT 43.6 % (34.0-46.0); HGB 13.7 gm/dL (11.4-16.0); Hypochromasia Marked; Lymphocytes # (A) 2.2 k/uL (1.0-4.8); Lymphocytes % (A) 27 %; MCHC 31.3 g/dL (31.0-37.0); MCV 92.5 fL (80.0-100.0); Mean Platelet Volume 8.9; Monocytes # (A) 0.7 k/uL (0-1.0); Monocytes % (A) 8 %; Neutrophils # (A) 4.9 k/uL (1.3-7.7); Neutrophils % (A) 60 %; Platelet Count 254 k/uL (150-450); RBC 4.72 m/uL (3.80-5.40); RDW 16.6 % (11.5-15.5); WBC 8.1 k/uL (3.8-10.6)
[2022-12-19] MEDS: PANTOPRAZOLE 40 MG TABLET PO SCH (08:44)
[2022-12-19] MEDS: DULoxetine HCL 30 MG CAPSULE.DR PO SCH (08:45)
[2022-12-19] MEDS: ISOSORBIDE MONONITRATE ER 30 MG TAB.ER.24H PO SCH (08:45)
[2022-12-19] MEDS: APIXABAN 2.5 MG TABLET PO SCH ×2 (08:46→21:06)
[2022-12-19] MEDS: levETIRAcetam 500 MG TAB PO SCH ×2 (08:47→21:06)
[2022-12-19] MEDS: ASPIRIN 81 MG PO SCH (08:47)
[2022-12-19] MEDS: FERROUS SULFATE 325 MG TAB PO SCH (08:47)
[2022-12-19] MEDS: ASCORBIC ACID 500 MG TAB PO SCH (08:48)
[2022-12-19] MEDS: CHOLECALCIFEROL 25 MCG (1000 IU) TABLET PO SCH (08:49)
[2022-12-19] MEDS: PRAVASTATIN SODIUM 40 MG TAB PO SCH (08:49)
--- NOTE | 2022-12-19 12:22 | P.PN ---
Subjective Progress Note Date: 12/19/22 * 87-year-old patient with past medical history significant for CVA, hyperlipidemia, hypertension seizure disorder history of DVT or to the emergency department by family secondary to increased confusion. Per chart review patient has not slept in 3 days and was hallucinating and was brought to the ED for further evaluation patient had similar presentation in the past and was seen by neurology in June 2022 for concern for hand tremors and suspicion for focal seizure. * Workup initiated in ER included CBC which showed normal WC count normal hemoglobin and platelet count INR within normal limits * Serum chemistry showed sodium of 140 potassium 4.6, Kasia 33 BUN 20 creatinine 0.76 AST of 38 ALT of 15 troponin within normal limits * Urinalysis obtained showed WBC bacteria excessive squamous epithelial cells appeared urinalysis is ordered * Patient had urine toxicology done which was positive for opiates CT head obtained in ED was negative * X-ray shows subtle opacity however no suspicion for pneumonia at this point normal white cell count * EKG obtained in ER showed sinus rhythm * Patient is a poor historian historian, No family at bedside during my eval, Chart reviewed in History taking * 12/19/22: Patient seen and evaluated bedside, patient alert and oriented to person only, mentation has improved slightly. Blood work reviewed CBC within normal limits serum chemistry shows potassium of 5.4 which will be repeated. Patient remains afebrile, continue IV Rocephin home medications reviewed and reconciled Objective - Vital Signs Vital signs: Vital Signs Temp 98.7 F 12/19/22 11:27 Pulse 96 12/19/22 11:27 Resp 16 12/19/22 11:27 BP 136/65 12/19/22 11:27 Pulse Ox 92 L 12/19/22 11:27 FiO2 Intake & Output 12/18/22 12/19/22 12/19/22 18:59 06:59 18:59 Intake Total 20 240 Balance 20 240 Weight 65.771 kg Intake: Intake, IV Titration 20 Amount Sodium Chloride 0.9% 1, 20 000 ml @ 20 mls/hr IV . Q24H [facility] Rx#:[id number] Oral 240 Other: Voiding Method Bedside Commode Bedside Commode # Voids 1 - Exam PHYSICAL EXAMINATION: GENERAL: The patient is alert and oriented 1 , not in any acute distress. Well developed, well nourished. HEENT: Pupils are round and equally reacting to light. EOMI. CARDIOVASCULAR: S1 and S2 present. No murmurs, rubs, or gallops. PULMONARY: Chest is clear to auscultation, no wheezing or crackles. ABDOMEN: Soft, nontender, nondistended, normoactive bowel sounds. No palpable organomegaly. MUSCULOSKELETAL: No joint swelling or deformity. EXTREMITIES: No cyanosis, clubbing, or pedal edema. NEUROLOGICAL: impaired cognition disoriented - Labs CBC & Chem 7: 12/19/22 06:50 12/19/22 06:50 Labs: Abnormal Lab Results - Last 24 Hours (Table) 12/18/22 12/19/22 12/19/22 Range/Units 06:34 06:50 06:50 RDW 16.6 H (11.5-15.5) % Potassium 5.4 H (3.5-5.1) mmol/L AST 45 H (14-36) U/L Urine WBC 50 H (0-5) /hpf Ur Squamous Epith Cells 50 H (0-4) /hpf Urine Bacteria Rare H (None) /hpf Urine Mucus Occasional H (None) /hpf Assessment and Plan Assessment: Assessment and plan * Urinary tract infection * Acute encephalopathy rule out neurological etiology * History of seizure disorder * History of DVT * Dyslipidemia * In regards to urinary tract infection, repeat UA ordered, continue patient on IV Rocephin day 2, appropriately resuscitated with fluids * In regards to acute encephalopathy CT head negative, neurology consulted * In regards to history of seizure continue Keppra * In regards to history of DVT continue Eliquis * Continue to follow up on vitals, CBC basic metabolic panel * CODE STATUS is full code
--- NOTE | 2022-12-19 12:50 | P.CNNES ---
History of Present Illness Consult date: 12/19/22 Requesting physician: Prabhaakr Jacques Reason for Consult: altered mental status History of Present Illness: This is a 87-year-old woman with history of stroke, suspicious of a seizure in the past, bradycardia, atrial fibrillation on September, right carotid endarterectomy, hypertension who presented emergency department because of altered mental status. Patient stated that she presented to the hospital because she did not feel well. Some of the history is obtained from medical record that. Per the ED team is seems that the patient has not slept in 3 days prior was in the hospital and has been hallucinating. She has been talking to people that have passed on according to ED note. It seems that the son stated that in the ED that she had similar symptoms in the past when she had urinary tract infection. During his hospital visit was felt the patient has underlying the urinary tract infection and today her medication is drastically better according to the nurse and the patient feels drastically better. She denies of any headache, nausea vomiting, any focal weakness. Of note I personally seen the patient last on 07/22/2022 for episode of left hand tremor with aphasia and I felt possibly she had a focal seizure special with a history of old stroke which can be the focus for the seizure. She had a routine EEG at that time which was normal. At that time I placed the patient on Keppra 250 mg 1 tablet twice a day and the son wanted her to be on the lowest dose and I stated if she continues to have uncontrollable jerking then to go up to 500 every 12 hours. Please refer to my notes for further details. Some of the workup during his hospital visit consisted of: Urinalysis seems possible suggestive of underlying acute UTI. Urine drug screen is positive for opiates. Otherwise rest is nondetected and serum alcohol was less than 10. CT of the head is reported as no acute intracranial process. I personally reviewed this study head and I agree there is no acute subacute ischemia. The patient has similar encephalomalacia in the left superior cerebellar as well as the right frontal. Review of Systems The positive and negative as per HPI. 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,, emphysema; hypoglycemia, hx breast cancer, History of Any Multi-Drug Resistant Organisms: None Reported Past Surgical History: Back Surgery, Breast Surgery, Cholecystectomy, Heart Catheterization Additional Past Surgical History / Comment(s): L SUBCLAVIAN ARTERY BYPASS, Rt CAROTID ENDARTECTOMY, rt breast lumpectomy Past Anesthesia/Blood Transfusion Reactions: No Reported Reaction Additional Past Anesthesia/Blood Transfusion Reaction / Comment(s): PT RECIEVED BLOOD TRANSFUSION Past Psychological History: Anxiety Smoking Status: Former smoker Past Alcohol Use History: None Reported Past Drug Use History: None Reported - Past Family History Brother(s) Family Medical History: Cancer Sister(s) Family Medical History: Cancer Mother Family Medical History: Coronary Artery Disease (CAD) Additional Family Medical History / Comment(s): enlarged heart Father Family Medical History: Coronary Artery Disease (CAD), CVA/TIA Medications and Allergies Home Medications Medication Instructions Recorded Confirmed Type Pravastatin Sodium [Pravachol] 40 mg PO DAILY 08/04/13 12/18/22 History Ferrous Sulfate [Iron (65 MG 325 mg PO DAILY 02/05/17 12/18/22 History Elemental)] Pantoprazole [Protonix] 40 mg PO DAILY 04/11/18 12/18/22 History Albuterol Inhaler [Ventolin Hfa 2 puff INHALATION RT-Q6H PRN 04/29/22 12/18/22 History Inhaler] Apixaban [Eliquis] 2.5 mg PO BID 04/29/22 12/18/22 History DULoxetine HCL [Cymbalta] 30 mg PO DAILY 04/29/22 12/18/22 History Denosumab [Prolia] 60 mg SQ Q180D 04/29/22 12/18/22 History Furosemide [Lasix] 20 mg PO DAILY 04/29/22 12/18/22 History Isosorbide Mononitrate ER [Imdur] 30 mg PO DAILY 04/29/22 12/18/22 History Melatonin 1 mg PO HS 04/29/22 12/18/22 History Aspirin 81 mg PO DAILY 30 Days #30 tab 05/17/22 12/18/22 Rx Acetaminophen-Codeine 300-30mg 1 tab PO BID PRN 07/20/22 12/18/22 History [Tylenol w/codeine #3] Cholecalciferol [Vitamin D3 (25 25 mcg PO DAILY 09/30/22 12/18/22 History Mcg = 1000 Iu)] levETIRAcetam [Keppra] 500 mg PO Q12HR 09/30/22 12/18/22 History Ascorbic Acid [Vitamin C] 500 mg PO DAILY 10/27/22 12/18/22 History Allergies Allergy/AdvReac Type Severity Reaction Status Date / Time No Known Allergies Allergy Verified 12/18/22 09:25 Physical Examination - Vital Signs Vital Signs: Vital Signs Temp Pulse Pulse Resp BP BP Pulse Ox 12/19/22 11:27 98.7 F 96 16 136/65 92 L 12/19/22 07:45 98 F 94 16 134/69 12/19/22 03:11 125/64 12/19/22 01:31 97.9 F 86 18 199/77 97 12/18/22 20:00 18 12/18/22 18:59 97.5 F L 84 18 127/67 98 12/18/22 16:42 98.1 F 71 18 115/58 98 12/18/22 15:17 99.2 F 91 20 190/100 98 Intake and Output 12/18/22 12/19/22 12/19/22 22:59 06:59 14:59 Intake Total 260 Balance 260 Intake: Intake, IV Titration 20 Amount Sodium Chloride 0.9% 1, 20 000 ml @ 20 mls/hr IV . Q24H [facility] Rx#:[id number] Oral 240 Other: Voiding Method Bedside Commode Bedside Commode # Voids 1 GENERAL: The patient is lying in bed and is not in acute distress. NEUROLOGICAL: Higher mental function: The patient is awake, alert, oriented to self, place and time. Subtle slow responding to question. Is able to name watch, glasses and cup. Patient is following simple commands. No aphasia and no neglect. Cranial nerves: The pupils are round, equal and reactive to light. Visual everett are full to confrontation throughout. Extraocular movement is intact no nystagmus is noted. Facial sensation is normal to touch throughout. The facial strength is normal throughout. Hearing is moderately decreased to hand rub. Tongue is midline and moved [id number] without any difficulty. No dysarthria is noted. Shoulder shrug is normal bilaterally. Motor: The strength is hard to assess individual muscle strength because of cooperation but lifting uppers above gravity and seems equal and lowers lifting above gravity. Normal tone and bulk. Cerebellum: Normal finger to nose bilaterally. Sensation: Sensation is normal to touch throughout. Reflexes (right/left): 1+ throughout Plantars are mute bilaterally. Results - Laboratory Findings CBC and BMP: 12/19/22 06:50 12/19/22 06:50 Abnormal Lab Findings: Abnormal Labs 12/18/22 12/18/22 12/18/22 06:34 06:34 06:34 MCHC 30.3 L RDW 16.3 H APTT 20.8 L Potassium Carbon Dioxide BUN AST Urine WBC 50 H Ur Squamous Epith Cells 50 H Urine Bacteria Rare H Urine Mucus Occasional H Urine Opiates Screen Detected H 12/18/22 12/19/22 12/19/22 06:34 06:50 06:50 MCHC RDW 16.6 H APTT Potassium 5.4 H Carbon Dioxide 33 H BUN 20 H AST 38 H 45 H Urine WBC Ur Squamous Epith Cells Urine Bacteria Urine Mucus Urine Opiates Screen Assessment and Plan Assessment: This is an 87-year-old woman who presented emergency department because of altered mental status. She was found to have acute ureter tract infection. Her mentation is improved. Altered mental status seems due to underlying acute UTI and her mentation is improved. Probable acute UTI Prior episode of left hand tremor with episode of aphasia in June 2022 and I felt possible seizure especially with the old stroke which can be the culprit of seizure. She had an EEG at that time which was normal and she was placed on Keppra. 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 History of bradycardia History of atrial fibrillation on eliquis Chronic back pain History of breast cancer next Plan: Patient had an routine EEG in June 2022 which is normal. She is continued on her home dose of Keppra 500 mg every 12 hours. Since her mentation is improved although not pursue any further workup. But if patient continues to have further confusion or any jerking episodes then we'll pursue with an EEG. We'll defer the rest of the medical management to the primary team The plan discussed with the patient, her nurse was at bedside Thank you for the consultation Time with Patient: Greater than 30
[2022-12-19] MEDS: MELATONIN 1 MG TAB PO SCH (21:06)
[2022-12-20] MEDS: ALBUTEROL NEBULIZED 2.5 MG/3 ML INHALATION PRN (08:00)
[2022-12-20 09:06] LABS: BUN/Creat Ratio 18.22 Ratio (12.00-20.00); Blood Urea Nitrogen 16.4 mg/dL (9.0-27.0); Calcium 8.4 mg/dL (8.7-10.3); Carbon Dioxide 27.2 mmol/L (21.6-31.8); Chloride 100 mmol/L (96-109); Glucose 99 mg/dL (70-110); Potassium 4.2 mmol/L (3.5-5.5); Sodium 138 mmol/L (135-145)
[2022-12-20] MEDS: DULoxetine HCL 30 MG CAPSULE.DR PO SCH (09:35)
[2022-12-20] MEDS: ISOSORBIDE MONONITRATE ER 30 MG TAB.ER.24H PO SCH (09:35)
[2022-12-20] MEDS: FERROUS SULFATE 325 MG TAB PO SCH (09:36)
[2022-12-20] MEDS: levETIRAcetam 500 MG TAB PO SCH ×2 (09:36→20:45)
[2022-12-20] MEDS: CHOLECALCIFEROL 25 MCG (1000 IU) TABLET PO SCH (09:36)
[2022-12-20] MEDS: APIXABAN 2.5 MG TABLET PO SCH ×2 (09:36→20:45)
[2022-12-20] MEDS: PANTOPRAZOLE 40 MG TABLET PO SCH (09:36)
[2022-12-20] MEDS: ASPIRIN 81 MG PO SCH (09:36)
[2022-12-20] MEDS: FUROSEMIDE 20 MG TAB PO SCH (09:36)
[2022-12-20] MEDS: ASCORBIC ACID 500 MG TAB PO SCH (09:36)
[2022-12-20] MEDS: PRAVASTATIN SODIUM 40 MG TAB PO SCH (09:37)
[2022-12-20 10:30] LABS: HGB 11.3 d/dL (12.0-15.0); MCHC 29.7 d/dL (32.0-37.0); MCV 94.1 FL (80.0-97.0); Mean Platelet Volume 9.7 FL (9.5-12.2); NRBC Per 100 WBC 0 X 10*3/uL (0.00-0.01); Platelet Count 244 X 10*3/uL (140-440); RBC 4.04 X 10*6/uL (4.10-5.20); RDW 17.7 % (11.5-14.5); WBC 11.92 X 10*3/uL (4.50-10.00)
--- NOTE | 2022-12-20 11:46 | P.PN ---
Subjective Progress Note Date: 12/20/22 * 87-year-old patient with past medical history significant for CVA, hyperlipidemia, hypertension seizure disorder history of DVT or to the emergency department by family secondary to increased confusion. Per chart review patient has not slept in 3 days and was hallucinating and was brought to the ED for further evaluation patient had similar presentation in the past and was seen by neurology in June 2022 for concern for hand tremors and suspicion for focal seizure. * Workup initiated in ER included CBC which showed normal WC count normal hemoglobin and platelet count INR within normal limits * Serum chemistry showed sodium of 140 potassium 4.6, Kasia 33 BUN 20 creatinine 0.76 AST of 38 ALT of 15 troponin within normal limits * Urinalysis obtained showed WBC bacteria excessive squamous epithelial cells appeared urinalysis is ordered * Patient had urine toxicology done which was positive for opiates CT head obtained in ED was negative * X-ray shows subtle opacity however no suspicion for pneumonia at this point normal white cell count * EKG obtained in ER showed sinus rhythm * Patient is a poor historian historian, No family at bedside during my eval, Chart reviewed in History taking * 12/19/22: Patient seen and evaluated bedside, patient alert and oriented to person only, mentation has improved slightly. Blood work reviewed CBC within normal limits serum chemistry shows potassium of 5.4 which will be repeated. Patient remains afebrile, continue IV Rocephin home medications reviewed and reconciled * 12/20/22: Patient seen and evaluated bedside. Patient was noted to be alert and oriented 2. Blood pressure is stable, CRP elevated at 6.4 BNP 250 WBC 11.9 Objective - Vital Signs Vital signs: Vital Signs Temp 97.9 F 12/20/22 08:00 Pulse 80 12/20/22 08:10 Resp 16 12/20/22 08:10 BP 121/68 12/20/22 08:00 Pulse Ox 94 L 12/20/22 08:00 FiO2 Intake & Output 12/19/22 12/20/22 12/20/22 18:59 06:59 18:59 Other: Voiding Method Bedside Commode Bedside Commode # Voids 1 1 - Exam PHYSICAL EXAMINATION: GENERAL: The patient is alert and oriented 1 , not in any acute distress. Well developed, well nourished. HEENT: Pupils are round and equally reacting to light. EOMI. CARDIOVASCULAR: S1 and S2 present. No murmurs, rubs, or gallops. PULMONARY: Chest is clear to auscultation, no wheezing or crackles. ABDOMEN: Soft, nontender, nondistended, normoactive bowel sounds. No palpable organomegaly. MUSCULOSKELETAL: No joint swelling or deformity. EXTREMITIES: No cyanosis, clubbing, or pedal edema. NEUROLOGICAL: impaired cognition disoriented - Labs CBC & Chem 7: 12/20/22 05:51 12/20/22 05:51 Labs: Abnormal Lab Results - Last 24 Hours (Table) 12/20/22 12/20/22 Range/Units 05:51 05:51 WBC 11.92 H (4.50-10.00) X 10*3/uL RBC 4.04 L (4.10-5.20) X 10*6/uL Hgb 11.3 L (12.0-15.0) d/dL MCHC 29.7 L (32.0-37.0) d/dL RDW 17.7 H (11.5-14.5) % Calcium 8.4 L (8.7-10.3) mg/dL C-Reactive Protein 6.40 H (0.00-0.80) mg/dL Microbiology - Last 24 Hours (Table) 12/18/22 13:46 Blood Culture - Preliminary Blood 12/18/22 13:46 Blood Culture - Preliminary Blood Assessment and Plan Assessment: Assessment and plan * Urinary tract infection * Acute metabolic encephalopathy * History of seizure disorder * History of DVT * Dyslipidemia * In regards to urinary tract infection, repeat UA ordered, continue patient on IV Rocephin day 3 , appropriately resuscitated with fluids * In regards to acute encephalopathy CT head negative, neurology consulted * In regards to history of seizure continue Keppra * In regards to history of DVT continue Eliquis * Continue to follow up on vitals, CBC basic metabolic panel * CODE STATUS is full code
--- NOTE | 2022-12-20 13:03 | P.PN ---
Subjective Progress Note Date: 12/20/22 I am following up with the patient and according to the nurse initially when she woke up she was sleepy but currently she is back to baseline. No further confusion. Patient feels she is about the same. Denies of any headache and denies of any new complaints. Objective - Vital Signs Vital signs: Vital Signs Temp 97.9 F 12/20/22 08:00 Pulse 80 12/20/22 08:10 Resp 16 12/20/22 08:10 BP 121/68 12/20/22 08:00 Pulse Ox 94 L 12/20/22 08:00 FiO2 Intake & Output 12/19/22 12/20/22 12/20/22 18:59 06:59 18:59 Other: Voiding Method Bedside Commode Bedside Commode Bedside Commode # Voids 1 1 - Exam NEUROLOGICAL: Higher mental function: The patient is awake, alert, oriented to self, place and time. Subtle slow responding to question. Is able to name watch, glasses and cup. Patient is following simple commands. No aphasia and no neglect. Cranial nerves: The pupils are round, equal and reactive to light. Visual everett are full to confrontation throughout. Extraocular movement is intact no nystagmus is noted. Facial sensation is normal to touch throughout. The facial strength is normal throughout. Hearing is moderately decreased to hand rub. Tongue is midline and moved [id number] without any difficulty. No dysarthria is noted. Shoulder shrug is normal bilaterally. Motor: The strength is hard to assess individual muscle strength because of cooperation but lifting the right side better than left and stated old. Some of the workup during his hospital visit consisted of: Urinalysis seems possible suggestive of underlying acute UTI. Urine drug screen is positive for opiates. Otherwise rest is nondetected and serum alcohol was less than 10. CT of the head is reported as no acute intracranial process. I personally reviewed this study head and I agree there is no acute subacute ischemia. The patient has similar encephalomalacia in the left superior cerebellar as well as the right frontal. - Labs CBC & Chem 7: 12/20/22 05:51 12/20/22 05:51 Labs: Abnormal Lab Results - Last 24 Hours (Table) 12/20/22 12/20/22 Range/Units 05:51 05:51 WBC 11.92 H (4.50-10.00) X 10*3/uL RBC 4.04 L (4.10-5.20) X 10*6/uL Hgb 11.3 L (12.0-15.0) d/dL MCHC 29.7 L (32.0-37.0) d/dL RDW 17.7 H (11.5-14.5) % Calcium 8.4 L (8.7-10.3) mg/dL C-Reactive Protein 6.40 H (0.00-0.80) mg/dL Microbiology - Last 24 Hours (Table) 12/18/22 13:46 Blood Culture - Preliminary Blood 12/18/22 13:46 Blood Culture - Preliminary Blood Assessment and Plan Assessment: This is an 87-year-old woman who presented emergency department because of altered mental status. She was found to have acute ureter tract infection. Her mentation is improved. Altered mental status seems due to underlying acute UTI and her mentation is improved. Probable acute UTI Prior episode of left hand tremor with episode of aphasia in June 2022 and I felt possible seizure especially with the old stroke which can be the culprit of seizure. She had an EEG at that time which was normal and she was placed on Keppra. 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 History of bradycardia History of atrial fibrillation on eliquis Chronic back pain History of breast cancer next Plan: Patient had an routine EEG in June 2022 which is normal. She is continued on her home dose of Keppra 500 mg every 12 hours. Since her mentation is improved although not pursue any further workup. But if patient continues to have further confusion or any jerking episodes then we'll pursue with an EEG. We'll defer the rest of the medical management to the primary team The plan discussed with her nurse. UPDATES: The patient's son was at bedside and he felt that patient's left upper extremity was weaker and the felt she was somewhat confused. Then upon seeing her son and examine her he felt her left upper extremity at his baseline mildly weak but he felt was weaker upon him seen her today but he feels now she is better and close to baseline. Per the nurse that she had hypoxia of 77% today. Therefore I will pursue MRI of the brain to rule out any acute or subacute ischemia. I'll also pursue with the routine EEG because of her confusion to rule out any seizure discharges. We'll continue to follow Time with Patient: Less than 30
--- NOTE | 2022-12-20 13:52 | XR ---
EXAMINATION TYPE: XR chest 1V DATE OF EXAM: 12/20/2022 COMPARISON: 12/18/2022 INDICATION: CHF TECHNIQUE: Single frontal view of the chest is obtained. FINDINGS: The heart size is upper limits for normal. The pulmonary vasculature is normal. Minimal bibasilar infiltrates are present. Correlate for atelectasis. Follow-up can be performed IMPRESSION: 1. Minimal bibasilar infiltrates may be related to atelectasis. Follow-up can be performed
--- NOTE | 2022-12-20 15:33 | P.CNPUL ---
History of Present Illness Consult date: 12/20/22 Reason for consult: COPD, hypoxemia History of present illness: 87-year-old female patient with known history of COPD, on home oxygen at 2 L per min nasal cannula. The patient was has less for altered mental status. She has previous history of CVA hypertension hyperlipidemia and previous history of seizure disorder and DVT. The patient presented to the hospital because of altered mentation and hallucination. The most recent blood count shows a WD of 11.9 with a hemoglobin 11.3 and a platelet count of 244, sodium is at 138, bicarb is at 27. BUN is at 16 with a creatinine of 0.9 and the sugars are within normal limits. Calcium levels at 8.4. C-reactive protein is 6.0. The patient's blood culture still pending. There is a suspicion that the patient may have an underlying her tract infection. Her UA was abnormal with 50 WBCs, 2 RBCs. The patient was 7 IV Rocephin. It was noted that the patient is having episodic hypoxemia and the patient is currently on 2 L O2 nasal cannula with a pulse ox of 96% pH is afebrile for now patient is also hemodynamically stable. In terms of her mental status change, CAT scan of the brain was done in the emergency department. The CAT scan of the brain showed no evidence of any acute intracranial process. There is remote CVA involving the right frontal lobe and left superior cerebellum. Nevertheless, today's evaluation, the patient is reporting some ongoing weakness in her left upper extremity. She is quite weak and debilitated at this point in time. Neurology is on the case. She remains alert and oriented 2. Chest x-ray showed no evidence of any acute pulmonary infiltrates. EKG showing a normal sinus rhythm. She is essentially poor historian. LFTs are within normal limits. Review of Systems Constitutional: Reports as per HPI, Reports lethargy, Reports weakness Eyes: denies as per HPI, denies blurred vision, denies bulging eye, denies decreased vision, denies diplopia, denies discharge, denies dry eye, denies irritation, denies itching, denies pain, denies photophobia, denies loss of peripheral vision, denies loss of vision, denies tunnel vision/blind spots Ears: deny: decreased hearing, ear discharge, earache, tinnitus Ears, nose, mouth and throat: Reports as per HPI Breasts: absent: as per HPI, change in shape, gynecomastia, masses, nipple discharge, pain, skin changes, swelling Cardiovascular: Reports decreased exercise tolerance, Reports shortness of breath Respiratory: Reports dyspnea, Reports home oxygen Gastrointestinal: Reports as per HPI Genitourinary: Reports as per HPI Menstruation: Reports as per HPI Musculoskeletal: Reports as per HPI Musculoskeletal: absent: ankle pain, ankle stiffness, ankle swelling Integumentary: Reports as per HPI Neurological: Reports confusion, Reports gait dysfunction, Reports weakness Psychiatric: Reports as per HPI Endocrine: Reports as per HPI, Reports fatigue Hematologic/Lymphatic: Reports as per HPI Allergic/Immunologic: Reports as per HPI 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,, emphysema; hypoglycemia, hx breast cancer, History of Any Multi-Drug Resistant Organisms: None Reported Past Surgical History: Back Surgery, Breast Surgery, Cholecystectomy, Heart Catheterization Additional Past Surgical History / Comment(s): L SUBCLAVIAN ARTERY BYPASS, Rt C AROTID ENDARTECTOMY, rt breast lumpectomy Past Anesthesia/Blood Transfusion Reactions: No Reported Reaction Additional Past Anesthesia/Blood Transfusion Reaction / Comment(s): PT RECIEVED BLOOD TRANSFUSION Past Psychological History: Anxiety Smoking Status: Former smoker Past Alcohol Use History: None Reported Past Drug Use History: None Reported - Past Family History Brother(s) Family Medical History: Cancer Sister(s) Family Medical History: Cancer Mother Family Medical History: Coronary Artery Disease (CAD) Additional Family Medical History / Comment(s): enlarged heart Father Family Medical History: Coronary Artery Disease (CAD), CVA/TIA Medications and Allergies Home Medications Medication Instructions Recorded Confirmed Type Pravastatin Sodium [Pravachol] 40 mg PO DAILY 08/04/13 12/18/22 History Ferrous Sulfate [Iron (65 MG 325 mg PO DAILY 02/05/17 12/18/22 History Elemental)] Pantoprazole [Protonix] 40 mg PO DAILY 04/11/18 12/18/22 History Albuterol Inhaler [Ventolin Hfa 2 puff INHALATION RT-Q6H PRN 04/29/22 12/18/22 History Inhaler] Apixaban [Eliquis] 2.5 mg PO BID 04/29/22 12/18/22 History DULoxetine HCL [Cymbalta] 30 mg PO DAILY 04/29/22 12/18/22 History Denosumab [Prolia] 60 mg SQ Q180D 04/29/22 12/18/22 History Furosemide [Lasix] 20 mg PO DAILY 04/29/22 12/18/22 History Isosorbide Mononitrate ER [Imdur] 30 mg PO DAILY 04/29/22 12/18/22 History Melatonin 1 mg PO HS 04/29/22 12/18/22 History Aspirin 81 mg PO DAILY 30 Days #30 tab 05/17/22 12/18/22 Rx Acetaminophen-Codeine 300-30mg 1 tab PO BID PRN 07/20/22 12/18/22 History [Tylenol w/codeine #3] Cholecalciferol [Vitamin D3 (25 25 mcg PO DAILY 09/30/22 12/18/22 History Mcg = 1000 Iu)] levETIRAcetam [Keppra] 500 mg PO Q12HR 09/30/22 12/18/22 History Ascorbic Acid [Vitamin C] 500 mg PO DAILY 10/27/22 12/18/22 History Allergies Allergy/AdvReac Type Severity Reaction Status Date / Time No Known Allergies Allergy Verified 12/18/22 09:25 Physical Exam Vitals: Vital Signs Temp Pulse Pulse Resp BP Pulse Ox 12/20/22 13:17 97.5 F L 87 18 120/67 96 12/20/22 08:10 80 16 12/20/22 08:00 97.9 F 83 93 22 121/68 94 L 12/20/22 01:24 98.2 F 83 18 109/61 98 12/19/22 20:00 18 12/19/22 19:13 98.5 F 91 18 103/57 93 L Intake and Output 12/20/22 12/20/22 12/20/22 06:59 14:59 22:59 Other: Voiding Method Bedside Commode # Voids 1 GENERAL: The patient is alert and oriented 1-2 , not in any acute distress. Well developed, well nourished. The patient is currently on 2 L of oxygen by nasal cannula, no signs of any respiratory distress Head exam was generally normal. There was no scleral icterus or corneal arcus. Mucous membranes were moist. HEENT: Pupils are round and equally reacting to light. EOMI. CARDIOVASCULAR: S1 and S2 present. No murmurs, rubs, or gallops. PULMONARY: Chest is clear to auscultation, no wheezing or crackles. ABDOMEN: Soft, nontender, nondistended, normoactive bowel sounds. No palpable organomegaly. MUSCULOSKELETAL: No joint swelling or deformity. EXTREMITIES: No cyanosis, clubbing, or pedal edema. NEUROLOGICAL: impaired cognition disoriented, motor weakness in the left probably chronic. Obvious gait dysfunction. Generalized global weakness. Results - Laboratory Findings CBC and BMP: 12/20/22 05:51 12/20/22 05:51 PT/INR, D-dimer PT 11.3 sec (10.0-12.5) 12/18/22 06:34 INR 1.0 (<1.2) 12/18/22 06:34 Abnormal lab findings: Abnormal Labs 12/18/22 12/18/22 12/18/22 06:34 06:34 06:34 WBC RBC Hgb MCHC 30.3 L RDW 16.3 H APTT 20.8 L Potassium Carbon Dioxide BUN Calcium AST C-Reactive Protein Urine WBC 50 H Ur Squamous Epith Cells 50 H Urine Bacteria Rare H Urine Mucus Occasional H Urine Opiates Screen Detected H 12/18/22 12/19/22 12/19/22 06:34 06:50 06:50 WBC RBC Hgb MCHC RDW 16.6 H APTT Potassium 5.4 H Carbon Dioxide 33 H BUN 20 H Calcium AST 38 H 45 H C-Reactive Protein Urine WBC Ur Squamous Epith Cells Urine Bacteria Urine Mucus Urine Opiates Screen 12/20/22 12/20/22 05:51 05:51 WBC 11.92 H RBC 4.04 L Hgb 11.3 L MCHC 29.7 L RDW 17.7 H APTT Potassium Carbon Dioxide BUN Calcium 8.4 L AST C-Reactive Protein 6.40 H Urine WBC Ur Squamous Epith Cells Urine Bacteria Urine Mucus Urine Opiates Screen - Diagnostic Findings Chest x-ray: image reviewed Assessment and Plan Plan: COPD with chronic hypoxemia current on 2 L of oxygen by nasal cannula. No evidence of any COPD exacerbation or pneumonia. The patient has diffuse centrilobular emphysema. The patient also has scattered subpleural areas of vesiculation/scarring, likely chronic. No evidence of any consolidation or airspace disease or pneumonias. Altered mental status currently under investigation, could be related to underlying her tract infection. Neurology is also investigating the patient regarding any recurrent CVA. Previous history of CVA involving the right frontal and left cerebellar based on the CAT scan findings. Most recent MRI of the brain that was done on 08/21/2022 showed age-related atrophy and chronic small vessel ischemic changes. No enhancing lesions seen. Left-sided weakness, acute versus chronic, likely subacute on that investigation History of breast cancer Hypertension Hyperlipidemia Previous history of DVT Plan Supplemental O2 to maintain a saturation above 90% Using the DuoNeb about treatments when necessary and as needed Continue anticoagulation with Eliquis 2.5 mg by mouth twice a day Continue aspirin IV Rocephin IV fluids at KVO Previous echocardiogram showing preserved LV function Neurology follow-up Chest x-ray findings of essentially chronic
[2022-12-20] MEDS: SODIUM CHLORIDE 0.9% 1,000 ML IV SCH (16:31)
[2022-12-20] MEDS: MELATONIN 1 MG TAB PO SCH (21:00)
[2022-12-20 22:24] LABS: VBG PH 7.34 (7.31-7.41)
[2022-12-21] MEDS: hydrALAZINE HCL 20 MG/ML 1 ML VIAL IVP PRN ×2 (04:37→20:06)
[2022-12-21] MEDS: ALBUTEROL NEBULIZED 2.5 MG/3 ML INHALATION PRN (07:48)
[2022-12-21] MEDS: levETIRAcetam 500 MG TAB PO SCH ×2 (09:22→20:06)
[2022-12-21] MEDS: DULoxetine HCL 30 MG CAPSULE.DR PO SCH (09:22)
[2022-12-21] MEDS: APIXABAN 2.5 MG TABLET PO SCH ×2 (09:22→20:06)
[2022-12-21] MEDS: PRAVASTATIN SODIUM 40 MG TAB PO SCH (09:22)
[2022-12-21] MEDS: FUROSEMIDE 20 MG TAB PO SCH (09:22)
[2022-12-21] MEDS: ASCORBIC ACID 500 MG TAB PO SCH (09:23)
[2022-12-21] MEDS: CHOLECALCIFEROL 25 MCG (1000 IU) TABLET PO SCH (09:23)
[2022-12-21] MEDS: ISOSORBIDE MONONITRATE ER 30 MG TAB.ER.24H PO SCH (09:23)
[2022-12-21] MEDS: FERROUS SULFATE 325 MG TAB PO SCH (09:23)
[2022-12-21] MEDS: PANTOPRAZOLE 40 MG TABLET PO SCH (09:23)
[2022-12-21] MEDS: ASPIRIN 81 MG PO SCH (09:23)
[2022-12-21 11:53] LABS: Anisocytosis Slight; HCT 41.1 % (34.0-46.0); HGB 12.9 gm/dL (11.4-16.0); Hypochromasia Marked; MCH 29.1 pg (25.0-35.0); MCHC 31.5 g/dL (31.0-37.0); MCV 92.4 fL (80.0-100.0); Mean Platelet Volume 8.5; Platelet Count 188 k/uL (150-450); RBC 4.44 m/uL (3.80-5.40); RDW 16.4 % (11.5-15.5); WBC 8.6 k/uL (3.8-10.6)
[2022-12-21 12:05] LABS: African American GFR (CKD) >90 (>60 ml/min/1.73 sqM); Anion Gap 8 mmol/L; Blood Urea Nitrogen 13 mg/dL (7-17); Calcium 8.3 mg/dL (8.4-10.2); Carbon Dioxide 28 mmol/L (22-30); Chloride 101 mmol/L (98-107); Glucose 98 mg/dL (74-99); Non-African American GFR(CKD) 85 (>60 ml/min/1.73 sqM); Sodium 137 mmol/L (137-145)
[2022-12-21 12:09] LABS: Potassium 4.3 mmol/L (3.5-5.1)
--- NOTE | 2022-12-21 12:37 | P.PN ---
Subjective Progress Note Date: 12/21/22 * 87-year-old patient with past medical history significant for CVA, hyperlipidemia, hypertension seizure disorder history of DVT or to the emergency department by family secondary to increased confusion. Per chart review patient has not slept in 3 days and was hallucinating and was brought to the ED for further evaluation patient had similar presentation in the past and was seen by neurology in June 2022 for concern for hand tremors and suspicion for focal seizure. * Workup initiated in ER included CBC which showed normal WC count normal hemoglobin and platelet count INR within normal limits * Serum chemistry showed sodium of 140 potassium 4.6, Kasia 33 BUN 20 creatinine 0.76 AST of 38 ALT of 15 troponin within normal limits * Urinalysis obtained showed WBC bacteria excessive squamous epithelial cells appeared urinalysis is ordered * Patient had urine toxicology done which was positive for opiates CT head obtained in ED was negative * X-ray shows subtle opacity however no suspicion for pneumonia at this point normal white cell count * EKG obtained in ER showed sinus rhythm * Patient is a poor historian historian, No family at bedside during my eval, Chart reviewed in History taking * 12/19/22: Patient seen and evaluated bedside, patient alert and oriented to person only, mentation has improved slightly. Blood work reviewed CBC within normal limits serum chemistry shows potassium of 5.4 which will be repeated. Patient remains afebrile, continue IV Rocephin home medications reviewed and reconciled * 12/20/22: Patient seen and evaluated bedside. Patient was noted to be alert and oriented 2. Blood pressure is stable, CRP elevated at 6.4 BNP 250 WBC 11.9 * 12/21/22: Patient evaluated bedside, patient was delirious overnight, had an episode of fall did not hit her head. Per nursing staff mentation slightly better. On my assessment patient is alert to person and situation. Patient i s having significant sundowning we will initiate Seroquel tonight as well. Serum chemistry within normal limits CBC essentially normal as well venous blood gas obtained showed pCO2 of 51 pH of 7.34. Reviewed by pulmonary medicine as well etiology for delirium likely secondary to UTI. Patient will likely need to be discharged to rehab facility once mentation improves Objective - Vital Signs Vital signs: Vital Signs Temp 98.7 F 12/21/22 07:36 Pulse 88 12/21/22 07:57 Resp 20 12/21/22 07:36 BP 160/74 12/21/22 07:36 Pulse Ox 97 12/21/22 07:36 FiO2 Intake & Output 12/20/22 12/21/22 12/21/22 18:59 06:59 18:59 Intake Total 590 Balance 590 Intake: Oral 590 Other: Voiding Method Bedside Commode Bedside Commode # Voids 3 # Bowel Movements 1 1 - Exam PHYSICAL EXAMINATION: GENERAL: The patient is alert and oriented 1 , not in any acute distress. Well developed, well nourished. HEENT: Pupils are round and equally reacting to light. EOMI. CARDIOVASCULAR: S1 and S2 present. No murmurs, rubs, or gallops. PULMONARY: Decreased breath sounds bilaterally, nasal cannula in place ABDOMEN: Soft, nontender, nondistended, normoactive bowel sounds. No palpable organomegaly. MUSCULOSKELETAL: No joint swelling or deformity. EXTREMITIES: No cyanosis, clubbing, or pedal edema. NEUROLOGICAL: impaired cognition disoriented, no focal deficit - Labs CBC & Chem 7: 12/21/22 10:55 12/21/22 10:55 Labs: Abnormal Lab Results - Last 24 Hours (Table) 12/21/22 12/21/22 Range/Units 10:55 10:55 RDW 16.4 H (11.5-15.5) % Calcium 8.3 L (8.4-10.2) mg/dL C-Reactive Protein 8.0 H (<1.0) mg/dL Microbiology - Last 24 Hours (Table) 12/19/22 08:06 Urine Culture - Final Urine,Voided 12/18/22 13:46 Blood Culture - Preliminary Blood 12/18/22 13:46 Blood Culture - Preliminary Blood Assessment and Plan Assessment: Assessment and plan * Urinary tract infection * Acute metabolic encephalopathy * Acute delirium * History of COPD with chronic hypoxic respiratory failure * History of seizure disorder * History of DVT * Dyslipidemia * In regards to urinary tract infection, continue patient on IV Rocephin day 4 / , appropriately resuscitated with fluids * In regards to acute encephalopathy CT head negative, neurology consulted, MRI brain in EEG ordered pending * In regards to history of seizure continue Keppra * In regards to history of COPD, and chronic hypoxic respiratory failure patient is supposed to wear 2-3 L of oxygen at home patient appears at baseline * In regards to history of DVT continue Eliquis * Continue to follow up on vitals, CBC basic metabolic panel * Barrier to discharge is active delirium potential discharge through the weekend if mentation improves otherwise per 12/24/22 * CODE STATUS is full code
--- NOTE | 2022-12-21 14:41 | P.PN ---
Subjective Progress Note Date: 12/21/22 Follow-up with the patient and per the nurse acute events overnight. According to patient she is feeling that she's doing better and denies of any new neurological deficits. Objective - Vital Signs Vital signs: Vital Signs Temp 98.4 F 12/21/22 12:42 Pulse 81 12/21/22 12:42 Resp 20 12/21/22 12:42 BP 135/68 12/21/22 12:42 Pulse Ox 94 L 12/21/22 12:42 FiO2 Intake & Output 12/20/22 12/21/22 12/21/22 18:59 06:59 18:59 Intake Total 590 Balance 590 Intake: Oral 590 Other: Voiding Method Bedside Commode Bedside Commode # Voids 3 # Bowel Movements 1 1 - Exam GENERAL: Sitting in a recliner chair and is not in acute distress. NEUROLOGICAL: Higher mental function: The patient is awake, alert, oriented to self, place and time. Subtle slow responding to question. Patient is following simple commands. No aphasia and no neglect. Cranial nerves: The pupils are round, equal and reactive to light. Visual everett are full to confrontation throughout. Extraocular movement is intact no nystagmus is noted. Facial sensation is normal to touch throughout. The facial strength is normal throughout. Hearing is moderately decreased to hand rub. Tongue is midline and moved [id number] without any difficulty. No dysarthria is noted. Shoulder shrug is normal bilaterally. Motor: The strength is hard to assess individual muscle strength because of cooperation but lifting the right side better than left and stated old. Some of the workup during his hospital visit consisted of: Urinalysis seems possible suggestive of underlying acute UTI. Urine drug screen is positive for opiates. Otherwise rest is nondetected and serum alcohol was less than 10. CT of the head is reported as no acute intracranial process. I personally reviewed this study head and I agree there is no acute subacute ischemia. The p atient has similar encephalomalacia in the left superior cerebellar as well as the right frontal. - Labs CBC & Chem 7: 12/21/22 10:55 12/21/22 10:55 Labs: Abnormal Lab Results - Last 24 Hours (Table) 12/21/22 12/21/22 Range/Units 10:55 10:55 RDW 16.4 H (11.5-15.5) % Calcium 8.3 L (8.4-10.2) mg/dL C-Reactive Protein 8.0 H (<1.0) mg/dL Microbiology - Last 24 Hours (Table) 12/19/22 08:06 Urine Culture - Final Urine,Voided 12/18/22 13:46 Blood Culture - Preliminary Blood 12/18/22 13:46 Blood Culture - Preliminary Blood Assessment and Plan Assessment: This is an 87-year-old woman who presented emergency department because of altered mental status. She was found to have acute ureter tract infection. Her mentation is improved. Altered mental status seems due to underlying acute UTI and her mentation is im proved. Episode of worsening left upper extremity weakness that is transient: Rule out acute ischemic stroke vs result of of her undelrying infection. Probable acute UTI Prior episode of left hand tremor with episode of aphasia in June 2022 and I felt possible seizure especially with the old stroke which can be the culprit of seizure. She had an EEG at that time which was normal and she was placed on Keppra. 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 History of bradycardia History of atrial fibrillation on eliquis Chronic back pain History of breast cancer next Plan: She is continued on her home dose of Keppra 500 mg every 12 hours. Patient had a routine EEG which was completed and pending official report Pending MRI the brain We'll defer the rest of the medical management to the primary team The plan discussed with her nurse. We'll continue to follow Time with Patient: Less than 30
[2022-12-21] MEDS: SODIUM CHLORIDE 0.9% 1,000 ML IV SCH (17:08)
--- NOTE | 2022-12-21 19:28 | P.PN ---
Subjective Progress Note Date: 12/21/22 87-year-old female patient with known history of COPD, on home oxygen at 2 L per min nasal cannula. The patient was has less for altered mental status. She has previous history of CVA hypertension hyperlipidemia and previous history of seizure disorder and DVT. The patient presented to the hospital because of altered mentation and hallucination. The most recent blood count shows a WD of 11.9 with a hemoglobin 11.3 and a platelet count of 244, sodium is at 138, bicarb is at 27. BUN is at 16 with a creatinine of 0.9 and the sugars are within normal limits. Calcium levels at 8.4. C-reactive protein is 6.0. The patient's blood culture still pending. There is a suspicion that the patient may have an underlying her tract infection. Her UA was abnormal with 50 WBCs, 2 RBCs. The patient was 7 IV Rocephin. It was noted that the patient is having episodic hypoxemia and the patient is currently on 2 L O2 nasal cannula with a pulse ox of 96% pH is afebrile for now patient is also hemodynamically stable. In terms of her mental status change, CAT scan of the brain was done in the emergency department. The CAT scan of the brain showed no evidence of any acute intracranial process. There is remote CVA involving the right frontal lobe and left superior cerebellum. Nevertheless, today's evaluation, the patient is reporting some ongoing weakness in her left upper extremity. She is quite weak and debilitated at this point in time. Neurology is on the case. She remains alert and oriented 2. Chest x-ray showed no evidence of any acute pulmonary infiltrates. EKG showing a normal sinus rhythm. She is essentially poor historian. LFTs are within normal limits. On today's evaluation of 12/21/2022, the patient remains confused. No focal neurological deficit or any form of new onset neurological deficits. She is afebrile and she is hemodynamically stable. The white cell count of 8.6 with a hemoglobin of 12.9. BUN is at 30 with a creatinine of 0.5. Pro-calcitonin level was at 4.5 indicating underlying infection/sepsis. the urine culture was negative. The blood culture was negative. The patient is still suspected to have an underlying her tract infection and the basilar original urinalysis of the time of admission. No other clear source of infection at this point in time. . The patient remains on IV Rocephin. Rest of the home medications have been all resume.The chest x-ray shows some limited bibasilar pulmonary atelectatic changes. No cough. No sputum production. No signs of a pneumonia at this point in time. Objective - Vital Signs Vital signs: Vital Signs Temp 98.4 F 12/21/22 12:42 Pulse 81 12/21/22 12:42 Resp 20 12/21/22 12:42 BP 135/68 12/21/22 12:42 Pulse Ox 94 L 12/21/22 12:42 FiO2 Intake & Output 12/21/22 12/21/22 12/22/22 06:59 18:59 06:59 Intake Total 590 Balance 590 Intake: Oral 590 Other: Voiding Method Bedside Commode # Voids 3 # Bowel Movements 1 - Exam GENERAL: The patient is alert and oriented 1-2 , not in any acute distress. Well developed, well nourished. The patient is currently on 2 L of oxygen by nasal cannula, no signs of any respiratory distress Head exam was generally normal. There was no scleral icterus or corneal arcus. Mucous membranes were moist. HEENT: Pupils are round and equally reacting to light. EOMI. CARDIOVASCULAR: S1 and S2 present. No murmurs, rubs, or gallops. PULMONARY: Chest is clear to auscultation, no wheezing or crackles. ABDOMEN: Soft, nontender, nondistended, normoactive bowel sounds. No palpable organomegaly. MUSCULOSKELETAL: No joint swelling or deformity. EXTREMITIES: No cyanosis, clubbing, or pedal edema. NEUROLOGICAL: impaired cognition disoriented, motor weakness in the left probably chronic. Obvious gait dysfunction. Generalized global weakness. - Labs CBC & Chem 7: 12/21/22 10:55 12/21/22 10:55 Labs: Abnormal Lab Results - Last 24 Hours (Table) 12/21/22 12/21/22 12/21/22 Range/Units 10:55 10:55 10:55 RDW 16.4 H (11.5-15.5) % Calcium 8.3 L (8.4-10.2) mg/dL C-Reactive Protein 8.0 H (<1.0) mg/dL Procalcitonin 4.50 H (0.02-0.09) ng/mL Microbiology - Last 24 Hours (Table) 12/19/22 08:06 Urine Culture - Final Urine,Voided 12/18/22 13:46 Blood Culture - Preliminary Blood 12/18/22 13:46 Blood Culture - Preliminary Blood Assessment and Plan Plan: COPD with chronic hypoxemia current on 2 L of oxygen by nasal cannula. No evidence of any COPD exacerbation or pneumonia. The patient has diffuse centrilobular emphysema. The patient also has scattered subpleural areas of vesiculation/scarring, likely chronic. No evidence of any consolidation or airspace disease or pneumonias. Altered mental status currently under investigation, could be related to underlying her tract infection. Neurology is also investigating the patient regarding any recurrent CVA. Previous history of CVA involving the right frontal and left cerebellar based on the CAT scan findings. Most recent MRI of the brain that was done on 08/21/2022 showed age-related atrophy and chronic small vessel ischemic changes. No enhancing lesions seen. Left-sided weakness, acute versus chronic, likely subacute on that investigation History of breast cancer Hypertension Hyperlipidemia Previous history of DVT Plan Continue same management and monitor the mental status Cultures are negative Pro calcitonin level is elevated Supplemental O2 to maintain a saturation above 90% Using the DuoNeb about treatments when necessary and as needed Continue anticoagulation with Eliquis 2.5 mg by mouth twice a day Continue aspirin IV Rocephin IV fluids at KVO Previous echocardiogram showing preserved LV function Neurology follow-up Chest x-ray findings of essentially chronic We'll continue to follow
--- NOTE | 2022-12-21 19:56 | EEG ---
ELECTROENCEPHALOGRAM REPORT CLINICAL HISTORY: This is an 87-year-old woman with altered mental status. The video EEG is obtained to evaluate for seizure and epileptiform activity. RELEVANT MEDICATION: Keppra. EEG TYPE: A routine 21-channel EEG with video using the 10/20 electrode placement system. DESCRIPTION: Wakefulness is only obtained. During awake state, the background consists of low-to- moderate voltage of 6.5 to 7.5 Hz that is poorly modulated and sustained. There is no physiological sleep architecture. There is no focal slowing. There is [id number] diffuse myogenic artifact. INTERICTAL AND ICTAL: None. ACTIVATION PROCEDURE: Photic stimulation did not evoke a posterior driving response. There is no abnormality during the photic stimulation. Hyperventilation is not performed. CLINICAL INTERPRETATION: This is an abnormal routine EEG. The background slowing is suggestive of mild encephalopathy. Otherwise, there is no focal slowing, epileptiform discharges, or seizure on the EEG. Clinical correlation is recommended. YULY / YESSENIA: [id number] /
[2022-12-21] MEDS: MELATONIN 1 MG TAB PO SCH (20:06)
[2022-12-21] MEDS: QUEtiapine 25 MG TAB PO SCH (20:06)
[2022-12-22 09:05] LABS: HCT 37.3 % (37.2-46.3); HGB 11.1 d/dL (12.0-15.0); MCH 27.4 pg (27.0-32.0); MCHC 29.8 d/dL (32.0-37.0); MCV 92.1 FL (80.0-97.0); Mean Platelet Volume 10.1 FL (9.5-12.2); NRBC Per 100 WBC 0 X 10*3/uL (0.00-0.01); Platelet Count 235 X 10*3/uL (140-440); RBC 4.05 X 10*6/uL (4.10-5.20); RDW 17.3 % (11.5-14.5); WBC 6.61 X 10*3/uL (4.50-10.00)
[2022-12-22] MEDS: ASCORBIC ACID 500 MG TAB PO SCH (09:24)
[2022-12-22] MEDS: FERROUS SULFATE 325 MG TAB PO SCH (09:24)
[2022-12-22] MEDS: ASPIRIN 81 MG PO SCH (09:24)
[2022-12-22] MEDS: PANTOPRAZOLE 40 MG TABLET PO SCH (09:24)
[2022-12-22] MEDS: CHOLECALCIFEROL 25 MCG (1000 IU) TABLET PO SCH (09:24)
[2022-12-22] MEDS: DULoxetine HCL 30 MG CAPSULE.DR PO SCH (09:24)
[2022-12-22] MEDS: levETIRAcetam 500 MG TAB PO SCH ×2 (09:24→20:02)
[2022-12-22] MEDS: FUROSEMIDE 20 MG TAB PO SCH (09:24)
[2022-12-22] MEDS: ISOSORBIDE MONONITRATE ER 30 MG TAB.ER.24H PO SCH (09:24)
[2022-12-22] MEDS: PRAVASTATIN SODIUM 40 MG TAB PO SCH (09:24)
[2022-12-22] MEDS: APIXABAN 2.5 MG TABLET PO SCH ×2 (09:24→20:02)
[2022-12-22 10:28] LABS: BUN/Creat Ratio 14.38 Ratio (12.00-20.00); Blood Urea Nitrogen 11.5 mg/dL (9.0-27.0); Calcium 8.5 mg/dL (8.7-10.3); Carbon Dioxide 34.1 mmol/L (21.6-31.8); Chloride 103 mmol/L (96-109); Glucose 78 mg/dL (70-110); Potassium 4.3 mmol/L (3.5-5.5); Sodium 142 mmol/L (135-145)
--- NOTE | 2022-12-22 12:57 | P.PN ---
Subjective Progress Note Date: 12/22/22 I am following with the patient and feels about the same. Objective - Vital Signs Vital signs: Vital Signs Temp 97.7 F 12/22/22 07:53 Pulse 64 12/22/22 07:53 Resp 16 12/22/22 07:53 BP 161/69 12/22/22 07:53 Pulse Ox 98 12/22/22 07:53 FiO2 Intake & Output 12/21/22 12/22/22 12/22/22 18:59 06:59 18:59 Intake Total 200 Balance 200 Intake: Oral 200 Other: Voiding Method Bedside Commode Bedside Commode # Voids 1 1 - Exam GENERAL: Sitting in a recliner chair and is not in acute distress. NEUROLOGICAL: Higher mental function: The patient is awake, alert, oriented to self, place and correctly stated the year but not month.. Subtle slow responding to question. Patient is following simple commands. No aphasia and no neglect. Cranial nerves: The pupils are round, equal and reactive to light. Visual everett are full to confrontation throughout. Extraocular movement is intact no nystagmus is noted. Facial sensation is normal to touch throughout. The facial strength is normal throughout. Hearing is moderately decreased to hand rub. Tongue is midline and moved [id number] without any difficulty. No dysarthria is noted. Shoulder shrug is normal bilaterally. Motor: The strength is hard to assess individual muscle strength because of cooperation but lifting the right side better than left and stated old. Some of the workup during his hospital visit consisted of: Urinalysis seems possible suggestive of underlying acute UTI. Urine drug screen is positive for opiates. Otherwise rest is nondetected and serum alcohol was less than 10. CT of the head is reported as no acute intracranial process. I personally reviewed this study head and I agree there is no acute subacute ischemia. The patient has similar encephalomalacia in the left superior cerebellar as well as the right frontal. Routine EEG is abnormal. The background slowing is suggestive of mild encephalopathy. Otherwise there is no focal slowing, epileptiform discharges or seizure on the EEG - Labs CBC & Chem 7: 12/22/22 05:41 12/22/22 05:41 Labs: Abnormal Lab Results - Last 24 Hours (Table) 12/21/22 12/22/22 12/22/22 Range/Units 10:55 05:41 05:41 RBC 4.05 L (4.10-5.20) X 10*6/uL Hgb 11.1 L (12.0-15.0) d/dL MCHC 29.8 L (32.0-37.0) d/dL RDW 17.3 H (11.5-14.5) % Carbon Dioxide 34.1 H (21.6-31.8) mmol/L Calcium 8.5 L (8.7-10.3) mg/dL Procalcitonin 4.50 H (0.02-0.09) ng/mL Microbiology - Last 24 Hours (Table) 12/18/22 13:46 Blood Culture - Preliminary Blood 12/18/22 13:46 Blood Culture - Preliminary Blood Assessment and Plan Assessment: This is an 87-year-old woman who presented emergency department because of altered mental status. She was found to have acute ureter tract infection. Her mentation is improved. Altered mental status seems due to underlying acute UTI and her mentation is improved. Episode of worsening left upper extremity weakness that is transient: Rule out acute ischemic stroke vs result of of her undelrying infection. Probable acute UTI Prior episode of left hand tremor with episode of aphasia in June 2022 and I felt possible seizure especially with the old stroke which can be the culprit of seizure. She had an EEG at that time which was normal and she was placed on Keppra. 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 History of bradycardia History of atrial fibrillation on eliquis Chronic back pain History of breast cancer next Plan: She is continued on her home dose of Keppra 500 mg every 12 hours. Routine EEG: Mild encephalopathy. NO seizure or discharges. Pending MRI the brain We'll defer the rest of the medical management to the primary team The plan discussed with her nurse. We'll continue to follow. UPDATE: MRI Brain: It is reported as acute/subacute foci of ischemia within peripheral right parietal, temporal and occipital lobe. No abnormal contract enhancement. I spoke with the patient's and he stated patient has been compliant with eliquis 2.5mg bid and taking ASA 81mg. The son stated she was doing well at home beside her confusion and delerium from UTI and had good strength while at home and been taken to hospital by EMS. But felt this Saira that's her weakness started. I ordered 2D echo, carotid duplex, lipid panel. Recommend either going up on eliquis since continues to have stroke and per son is compliant taking medication (eliuwis and asa) vs switch to different anticoagulation. I consulted cardiology team. I had updated patient's son (Mitchell) of findings of MRI and answered all his questions. Dr. Hart will start neurology service tomorrow A.M. Time with Patient: Greater than 30
--- NOTE | 2022-12-22 13:47 | MR ---
EXAMINATION TYPE: MR brain wo/w con DATE OF EXAM: 12/22/2022 COMPARISON: MRI brain 08/21/2022, CT brain 12/18/2022 HISTORY: Left sided weakness, AMS, stroke. TECHNIQUE: Multiplanar, multisequence images of the brain and brainstem is performed without and with IV contras t, utilizing 6.5 mL intravenous Gadavist . FINDINGS: There are small foci of restricted diffusion identified within the peripheral right parieta l and temporal and occipital lobes. Remote ischemic injuries within the right frontal lobe, right par ieto-occipital region, right thalamus, and left superior cerebellum. There is no extra-axial fluid co llection. Extensive confluent periventricular and subcortical white matter T2/FLAIR hyperintense pierre ges redemonstrated. The ventricular system and cisternal spaces are normal in size and appearance. T he brain volume is age appropriate. Remote right frontal subarachnoid hemorrhage demonstrated on [facility] [place] eptibility weighted imaging Midline structures demonstrate normal morphology. The craniocervical junction appears within normal limits. Post contrast images demonstrate no abnormal enhancement. The dural venous sinuses appear pa tent. The visualized sinuses are clear. Bilateral aphakia. IMPRESSION: 1. Acute/subacute foci of ischemia within the peripheral right parietal, temporal, and occipital lob es. No abnormal contrast enhancement. 2. Remote ischemic injuries to the right frontal, right parietal occipital, right thalamus, and left cerebellum. 3. Nonspecific white matter changes likely related to chronic small vessel ischemic disease redemons trated.
--- NOTE | 2022-12-22 14:48 | P.PN ---
Subjective Progress Note Date: 12/22/22 87-year-old patient with past medical history significant for CVA, hyperlipidemia, hypertension seizure disorder history of DVT or to the emergency department by family secondary to increased confusion. Per chart review patient has not slept in 3 days and was hallucinating and was brought to the ED for f urther evaluation patient had similar presentation in the past and was seen by neurology in June 2022 for concern for hand tremors and suspicion for focal seizure. * Workup initiated in ER included CBC which showed normal WC count normal hemoglobin and platelet count INR within normal limits * Serum chemistry showed sodium of 140 potassium 4.6, Kasia 33 BUN 20 creatinine 0.76 AST of 38 ALT of 15 troponin within normal limits * Urinalysis obtained showed WBC bacteria excessive squamous epithelial cells appeared urinalysis is ordered * Patient had urine toxicology done which was positive for opiates CT head obtained in ED was negative * X-ray shows subtle opacity however no suspicion for pneumonia at this point normal white cell count * EKG obtained in ER showed sinus rhythm * Patient is a poor historian historian, No family at bedside during my eval, Chart reviewed in History taking * 12/19/22: Patient seen and evaluated bedside, patient alert and oriented to person only, mentation has improved slightly. Blood work reviewed CBC within normal limits serum chemistry shows potassium of 5.4 which will be repeated. Patient remains afebrile, continue IV Rocephin home medications reviewed and reconciled * 12/20/22: Patient seen and evaluated bedside. Patient was noted to be alert and oriented 2. Blood pressure is stable, CRP elevated at 6.4 BNP 250 WBC 11.9 * 12/21/22: Patient evaluated bedside, patient was delirious overnight, had an episode of fall did not hit her head. Per nursing staff mentation slightly better. On my assessment patient is alert to person and situation. Patient is having significant sundowning we will initiate Seroquel tonight as well. Serum chemistry within normal limits CBC essentially normal as well venous blood gas obtained showed pCO2 of 51 pH of 7.34. Reviewed by pulmonary medicine as well etiology for delirium likely secondary to UTI. Patient will likely need to be discharged to rehab facility once mentation improves 12/22. Patient seen and examined. Labs were done this morning showed WBC 6.6, hemoglobin 11.1, sodium 142, potassium 4.3, BUN 11.5, creatinine 0.8. Vital signs temperature 99.7, heart rate 64, respirations 16, blood pressure 161/69. EeG done does not show any seizure-like activity. MRI brain pending REVIEW OF SYSTEMS: CONSTITUTIONAL: No fever, no malaise,. CARDIOVASCULAR: No chest pain, no palpitations, no syncope. PULMONARY: No shortness of breath, no cough, GASTROINTESTINAL: No diarrhea, no nausea, no vomiting, no abdominal pain. NEUROLOGICAL: No headaches, no weakness, PHYSICAL EXAMINATION: GENERAL: The patient is alert , not in any acute distress. Well developed, well nourished. HEENT: Pupils are round and equally reacting to light. EOMI. No scleral icterus. No conjunctival pallor. Normocephalic, atraumatic. No pharyngeal erythema. No thyromegaly. CARDIOVASCULAR: S1 and S2 present. No murmurs, rubs, or gallops. PULMONARY: Chest is clear to auscultation, no wheezing or crackles. ABDOMEN: Soft, nontender, nondistended, normoactive bowel sounds. No palpable organomegaly. MUSCULOSKELETAL: No joint swelling or deformity. EXTREMITIES: No cyanosis, clubbing, or pedal edema. NEUROLOGICAL: Gross neurological examination did not reveal any focal deficits. SKIN: No rashes. Assessment and plan Urinary tract infection * Acute metabolic encephalopathy * Acute delirium * History of COPD with chronic hypoxic respiratory failure * History of seizure disorder * History of DVT * Dyslipidemia * In regards to urinary tract infection, continue patient on IV Rocephin day 4 /5 , appropriately resuscitated with fluids * In regards to acute encephalopathy CT head negative, neurology consulted, EEG negative for any seizure-like activity. MRI brain pending * In regards to history of seizure continue Keppra * In regards to history of COPD, and chronic hypoxic respiratory failure patient is supposed to wear 2-3 L of oxygen at home patient appears at baseline * In regards to history of DVT continue Eliquis * Continue to follow up on vitals, CBC basic metabolic panel * Pulmonology and neurology are following Labs and medication were reviewed.. Continue same treatment. Continue with symptomatic treatment. Resume home medication. Monitor labs and vitals. DVT and GI prophylaxis. Further recommendations as per clinical course of the patient Dictation was produced using [employer] dictation software. please excuse any grammatical, word or spelling errors. Objective - Vital Signs Vital signs: Vital Signs Temp 97.7 F 12/22/22 07:53 Pulse 64 12/22/22 07:53 Resp 16 12/22/22 07:53 BP 161/69 12/22/22 07:53 Pulse Ox 98 12/22/22 07:53 FiO2 Intake & Output 12/21/22 12/22/22 12/22/22 18:59 06:59 18:59 Intake Total 200 Balance 200 Intake: Oral 200 Other: Voiding Method Bedside Commode Bedside Commode # Voids 1 - Labs CBC & Chem 7: 12/22/22 05:41 12/22/22 05:41 Labs: Abnormal Lab Results - Last 24 Hours (Table) 12/21/22 12/21/22 12/21/22 Range/Units 10:55 10:55 10:55 RBC (4.10-5.20) X 10*6/uL Hgb (12.0-15.0) d/dL MCHC (32.0-37.0) d/dL RDW 16.4 H (11.5-15.5) % Carbon Dioxide (21.6-31.8) mmol/L Calcium 8.3 L (8.4-10.2) mg/dL C-Reactive Protein 8.0 H (<1.0) mg/dL Procalcitonin 4.50 H (0.02-0.09) ng/mL 12/22/22 12/22/22 Range/Units 05:41 05:41 RBC 4.05 L (4.10-5.20) X 10*6/uL Hgb 11.1 L (12.0-15.0) d/dL MCHC 29.8 L (32.0-37.0) d/dL RDW 17.3 H (11.5-15.5) % Carbon Dioxide 34.1 H (21.6-31.8) mmol/L Calcium 8.5 L (8.4-10.2) mg/dL C-Reactive Protein (<1.0) mg/dL Procalcitonin (0.02-0.09) ng/mL Microbiology - Last 24 Hours (Table) 12/18/22 13:46 Blood Culture - Preliminary Blood 12/18/22 13:46 Blood Culture - Preliminary Blood
--- NOTE | 2022-12-22 15:40 | P.PN ---
Subjective Progress Note Date: 12/22/22 87-year-old female patient with known history of COPD, on home oxygen at 2 L per min nasal cannula. The patient was has less for altered mental status. She has previous history of CVA hypertension hyperlipidemia and previous history of seizure disorder and DVT. The patient presented to the hospital because of altered mentation and hallucination. The most recent blood count shows a WD of 11.9 with a hemoglobin 11.3 and a platelet count of 244, sodium is at 138, bicarb is at 27. BUN is at 16 with a creatinine of 0.9 and the sugars are within normal limits. Calcium levels at 8.4. C-reactive protein is 6.0. The patient's blood culture still pending. There is a suspicion that the patient may have an underlying her tract infection. Her UA was abnormal with 50 WBCs, 2 RBCs. The patient was 7 IV Rocephin. It was noted that the patient is having episodic hypoxemia and the patient is currently on 2 L O2 nasal cannula with a pulse ox of 96% pH is afebrile for now patient is also hemodynamically stable. In terms of her mental status change, CAT scan of the brain was done in the emergency department. The CAT scan of the brain showed no evidence of any acute intracranial process. There is remote CVA involving the right frontal lobe and left superior cerebellum. Nevertheless, today's evaluation, the patient is reporting some ongoing weakness in her left upper extremity. She is quite weak and debilitated at this point in time. Neurology is on the case. She remains alert and oriented 2. Chest x-ray showed no evidence of any acute pulmonary infiltrates. EKG showing a normal sinus rhythm. She is essentially poor historian. LFTs are within normal limits. On today's evaluation of 12/21/2022, the patient remains confused. No focal neurological deficit or any form of new onset neurological deficits. She is afebrile and she is hemodynamically stable. The white cell count of 8.6 with a hemoglobin of 12.9. BUN is at 30 with a creatinine of 0.5. Pro-calcitonin level was at 4.5 indicating underlying infection/sepsis. the urine culture was negative. The blood culture was negative. The patient is still suspected to have an underlying her tract infection and the basilar original urinalysis of the time of admission. No other clear source of infection at this point in time. . The patient remains on IV Rocephin. Rest of the home medications have been all resume.The chest x-ray shows some limited bibasilar pulmonary atelectatic changes. No cough. No sputum production. No signs of a pneumonia at this point in time. 12/22/2022, the patient is less confused compared to yesterday. She is following commands and answering questions more appropriately compared to yesterday. She is on IV Rocephin. Urine cultures were negative. Blood cultures were negative. Unresponsive 6.6, hemoglobin 11.1, platelet count is 235, BUN is 11 creatinine 0.8 and sodium was at 142. The patient has no respiratory difficulties. Pulse ox 98% liters of oxygen by nasal cannula. Tolerating diet. Objective - Vital Signs Vital signs: Vital Signs Temp 97.7 F 12/22/22 07:53 Pulse 64 12/22/22 07:53 Resp 16 12/22/22 07:53 BP 161/69 12/22/22 07:53 Pulse Ox 98 12/22/22 07:53 FiO2 Intake & Output 12/21/22 12/22/22 12/22/22 18:59 06:59 18:59 Intake Total 200 Balance 200 Intake: Oral 200 Other: Voiding Method Bedside Commode Bedside Commode # Voids 1 1 - Exam GENERAL: The patient is alert and oriented 1-2 , not in any acute distress. Well developed, well nourished. The patient is currently on 2 L of oxygen by nasal cannula, no signs of any respiratory distress Head exam was generally normal. There was no scleral icterus or corneal arcus. Mucous membranes were moist. HEENT: Pupils are round and equally reacting to light. EOMI. CARDIOVASCULAR: S1 and S2 present. No murmurs, rubs, or gallops. PULMONARY: Chest is clear to auscultation, no wheezing or crackles. ABDOMEN: Soft, nontender, nondistended, normoactive bowel sounds. No palpable organomegaly. MUSCULOSKELETAL: No joint swelling or deformity. EXTREMITIES: No cyanosis, clubbing, or pedal edema. NEUROLOGICAL: impaired cognition disoriented, motor weakness in the left probably chronic. Obvious gait dysfunction. Generalized global weakness. - Labs CBC & Chem 7: 12/22/22 05:41 12/22/22 05:41 Labs: Abnormal Lab Results - Last 24 Hours (Table) 12/21/22 12/22/22 12/22/22 Range/Units 10:55 05:41 05:41 RBC 4.05 L (4.10-5.20) X 10*6/uL Hgb 11.1 L (12.0-15.0) d/dL MCHC 29.8 L (32.0-37.0) d/dL RDW 17.3 H (11.5-14.5) % Carbon Dioxide 34.1 H (21.6-31.8) mmol/L Calcium 8.5 L (8.7-10.3) mg/dL Procalcitonin 4.50 H (0.02-0.09) ng/mL Microbiology - Last 24 Hours (Table) 12/18/22 13:46 Blood Culture - Preliminary Blood 12/18/22 13:46 Blood Culture - Preliminary Blood Assessment and Plan Plan: COPD with chronic hypoxemia current on 2 L of oxygen by nasal cannula. No evidence of any COPD exacerbation or pneumonia. The patient has diffuse centrilobular emphysema. The patient also has scattered subpleural areas of vesiculation/scarring, likely chronic. No evidence of any consolidation or airspace disease or pneumonias. Altered mental status currently under investigation, could be related to underlying her tract infection. Neurology is also investigating the patient regarding any recurrent CVA. On today's evaluation, the mental status is more appropriate although the patient does have some underlying cognitive impairment which is on a chronic basis. Previous history of CVA involving the right frontal and left cerebellar based on the CAT scan findings. Most recent MRI of the brain that was done on 08/21/2022 showed age-related atrophy and chronic small vessel ischemic changes. No enhancing lesions seen. Left-sided weakness, acute versus chronic, likely subacute on that investigation History of breast cancer Hypertension Hyperlipidemia Previous history of DVT Plan Mental status improved compared to yesterday Cultures are negative Pro calcitonin level is elevated, to be monitored Supplemental O2 to maintain a saturation above 90% Using the DuoNeb about treatments when necessary and as needed Continue anticoagulation with Eliquis 2.5 mg by mouth twice a day Continue aspirin IV Rocephin IV fluids at KVO Previous echocardiogram showing preserved LV function Neurology follow-up Chest x-ray findings of essentially chronic We'll continue to follow
[2022-12-22] MEDS: SODIUM CHLORIDE 0.9% 1,000 ML IV SCH (17:53)
[2022-12-22] MEDS: QUEtiapine 25 MG TAB PO SCH (20:02)
[2022-12-22] MEDS: MELATONIN 1 MG TAB PO SCH (20:02)
--- NOTE | 2022-12-22 20:04 | US ---
EXAMINATION TYPE: US carotid duplex BILAT DATE OF EXAM: 12/22/2022 COMPARISON: Prior carotid ultrasound May 15, 2022. Prior CTA neck July 20, 2022 CLINICAL INDICATION: Female, 87 years old with history of stroke; Stroke TECHNIQUE: Carotid duplex ultrasound examination. Indirect Doppler criteria was utilized. FINDINGS: EXAM MEASUREMENTS: RIGHT: Peak Systolic Velocity (PSV) cm/sec ----- Right CCA: 78.4 ----- Right ICA: 661 ----- Right ECA: 239 ICA/CCA ratio: 8.4 RIGHT: End Diastole cm/sec ----- Right CCA: 11.9 ----- Right ICA: 240 ----- Right ECA: 22.2 LEFT: Peak Systolic Velocity (PSV) cm/sec ----- Left CCA: 115 ----- Left ICA: 302 ----- Left ECA: 155 ICA/CCA ratio: 2.6 LEFT: End Diastole cm/sec ----- Left CCA: 25.2 ----- Left ICA: 75.9 ----- Left ECA: 0.0 VERTEBRALS (direction of flow): Right Vertebral: Antegrade Left Vertebral: Antegrade Rhythm: Normal FIELD SERVICES MANAGER NOTES: Significant stenosis, elevated velocities, and abnormal ratios bilaterally, more s ignificant on right side Grayscale images show persistent shadowing eccentric plaque at bilateral carotid bulb levels with leilani vated velocities and abnormal ratios bilaterally. Findings are worse on the right side. IMPRESSION: Significant stenosis in the bilateral internal carotid arteries is thought present. Advi se repeat CTA or MRA of the neck to further evaluate. Criteria for Assigning % of Stenosis / Diameter reduction (Estimation based on the indirect measurements of the internal carotid artery velocities (ICA PSV). 1. Normal (no stenosis)=ICA PSV < 125 cm/s: ratio < 2.0: ICA EDV<40 cm/s. 2. Less than 50% stenosis=ICA PSV < 125 cm/s: ratio < 2.0: ICA EDV<40 cm/s. 3. 50 to 69% stenosis=ICA PSV of 125 to 230 cm/s: ration 2.0 ? 4.0: ICA EDV 40-100 cm/s. 4. Greater than 70% stenosis to near occlusion= ICA PSV > 230 cm/s: ratio > 4.0: ICA EDV > 100 cm/s. 5. Near occlusion= ICA PSV velocities may be low or undetectable: variable ratio and ICA EDV. 6. Total occlusion=unable to detect flow.
[2022-12-23 00:17] LABS: Chol/HDL Ratio 2.71 Ratio; LDL Cholesterol,Calculated 51.8 mg/dL (0.0-131.0)
[2022-12-23] MEDS: APIXABAN 2.5 MG TABLET PO SCH ×2 (08:57→20:26)
[2022-12-23] MEDS: ASPIRIN 81 MG PO SCH (08:57)
[2022-12-23] MEDS: PRAVASTATIN SODIUM 40 MG TAB PO SCH (08:57)
[2022-12-23] MEDS: levETIRAcetam 500 MG TAB PO SCH ×2 (08:57→20:26)
[2022-12-23] MEDS: DULoxetine HCL 30 MG CAPSULE.DR PO SCH (08:58)
[2022-12-23] MEDS: FUROSEMIDE 20 MG TAB PO SCH (08:58)
[2022-12-23] MEDS: FERROUS SULFATE 325 MG TAB PO SCH (08:58)
[2022-12-23] MEDS: ISOSORBIDE MONONITRATE ER 30 MG TAB.ER.24H PO SCH (08:58)
[2022-12-23] MEDS: ASCORBIC ACID 500 MG TAB PO SCH (08:58)
[2022-12-23] MEDS: PANTOPRAZOLE 40 MG TABLET PO SCH (08:58)
[2022-12-23] MEDS: CHOLECALCIFEROL 25 MCG (1000 IU) TABLET PO SCH (08:58)
--- NOTE | 2022-12-23 12:51 | P.PN ---
Subjective Progress Note Date: 12/23/22 87-year-old female patient with known history of COPD, on home oxygen at 2 L per min nasal cannula. The patient was has less for altered mental status. She has previous history of CVA hypertension hyperlipidemia and previous history of seizure disorder and DVT. The patient presented to the hospital because of altered mentation and hallucination. The most recent blood count shows a WD of 11.9 with a hemoglobin 11.3 and a platelet count of 244, sodium is at 138, bicarb is at 27. BUN is at 16 with a creatinine of 0.9 and the sugars are within normal limits. Calcium levels at 8.4. C-reactive protein is 6.0. The patient's blood culture still pending. There is a suspicion that the patient may have an underlying her tract infection. Her UA was abnormal with 50 WBCs, 2 RBCs. The patient was 7 IV Rocephin. It was noted that the patient is having episodic hypoxemia and the patient is currently on 2 L O2 nasal cannula with a pulse ox of 96% pH is afebrile for now patient is also hemodynamically stable. In terms of her mental status change, CAT scan of the brain was done in the emergency department. The CAT scan of the brain showed no evidence of any acute intracranial process. There is remote CVA involving the right frontal lobe and left superior cerebellum. Nevertheless, today's evaluation, the patient is reporting some ongoing weakness in her left upper extremity. She is quite weak and debilitated at this point in time. Neurology is on the case. She remains alert and oriented 2. Chest x-ray showed no evidence of any acute pulmonary infiltrates. EKG showing a normal sinus rhythm. She is essentially poor historian. LFTs are within normal limits. On today's evaluation of 12/21/2022, the patient remains confused. No focal neurological deficit or any form of new onset neurological deficits. She is afebrile and she is hemodynamically stable. The white cell count of 8.6 with a hemoglobin of 12.9. BUN is at 30 with a creatinine of 0.5. Pro-calcitonin level was at 4.5 indicating underlying infection/sepsis. the urine culture was negative. The blood culture was negative. The patient is still suspected to have an underlying her tract infection and the basilar original urinalysis of the time of admission. No other clear source of infection at this point in time. . The patient remains on IV Rocephin. Rest of the home medications have been all resume.The chest x-ray shows some limited bibasilar pulmonary atelectatic changes. No cough. No sputum production. No signs of a pneumonia at this point in time. 12/22/2022, the patient is less confused compared to yesterday. She is following commands and answering questions more appropriately compared to yesterday. She is on IV Rocephin. Urine cultures were negative. Blood cultures were negative. Unresponsive 6.6, hemoglobin 11.1, platelet count is 235, BUN is 11 creatinine 0.8 and sodium was at 142. The patient has no respiratory difficulties. Pulse ox 98% liters of oxygen by nasal cannula. Tolerating diet. On today's evaluation of 12/23/2022, the patient has no specific complaints to she is, comfortable. No respiratory difficulties. She remains on IV Rocephin. She remains on anticoagulation with Eliquis. Home medications and resume. No agitation. Tolerating her diet. She remains on 2 L of oxygen by nasal cannula with a pulse ox of 99%. Objective - Vital Signs Vital signs: Vital Signs Temp 98.4 F 12/23/22 07:37 Pulse 81 12/23/22 07:37 Resp 14 12/23/22 07:37 BP 162/72 12/23/22 07:37 Pulse Ox 100 12/23/22 07:37 FiO2 Intake & Output 12/22/22 12/23/22 12/23/22 18:59 06:59 18:59 Intake Total 590 Balance 590 Intake: Oral 590 Other: Voiding Method Bedside Commode # Voids 1 2 - Exam GENERAL: The patient is alert and oriented 1-2 , not in any acute distress. Well developed, well nourished. The patient is currently on 2 L of oxygen by nasal cannula, no signs of any respiratory distress Head exam was generally normal. There was no scleral icterus or corneal arcus. Mucous membranes were moist. HEENT: Pupils are round and equally reacting to light. EOMI. CARDIOVASCULAR: S1 and S2 present. No murmurs, rubs, or gallops. PULMONARY: Chest is clear to auscultation, no wheezing or crackles. ABDOMEN: Soft, nontender, nondistended, normoactive bowel sounds. No palpable organomegaly. MUSCULOSKELETAL: No joint swelling or deformity. EXTREMITIES: No cyanosis, clubbing, or pedal edema. NEUROLOGICAL: impaired cognition disoriented, motor weakness in the left probably chronic. Obvious gait dysfunction. Generalized global weakness. - Labs CBC & Chem 7: 12/22/22 05:41 12/22/22 05:41 Labs: Abnormal Lab Results - Last 24 Hours (Table) 12/22/22 Range/Units 05:41 HDL Cholesterol 37.30 L (40.00-60.00) mg/dL Assessment and Plan Plan: COPD with chronic hypoxemia current on 2 L of oxygen by nasal cannula. No evidence of any COPD exacerbation or pneumonia. The patient has diffuse centrilobular emphysema. The patient also has scattered subpleural areas of ve siculation/scarring, likely chronic. No evidence of any consolidation or airspace disease or pneumonias. Overall respiratory status remains stable Altered mental status currently under investigation, could be related to underlying her tract infection. Neurology is also investigating the patient regarding any recurrent CVA. On today's evaluation, the mental status is more appropriate although the patient does have some underlying cognitive impairment which is on a chronic basis. Previous history of CVA involving the right frontal and left cerebellar based on the CAT scan findings. Most recent MRI of the brain that was done on 08/21/2022 showed age-related atrophy and chronic small vessel ischemic changes. No enhancing lesions seen. Left-sided weakness, acute versus chronic, likely subacute on that investigation History of breast cancer Hypertension Hyperlipidemia Previous history of DVT Plan Clinically stable Cultures are negative Pro calcitonin level is elevated, to be monitored, to be repeated for tomorrow Supplemental O2 to maintain a saturation above 90% Using the DuoN[employer] about treatments when necessary and as needed Continue anticoagulation with Eliquis 2.5 mg by mouth twice a day Continue aspirin IV Rocephin IV fluids at KVO Previous echocardiogram showing preserved LV function Neurology follow-up Chest x-ray findings of essentially chronic We'll continue to follow
--- NOTE | 2022-12-23 14:48 | P.PN ---
Subjective Progress Note Date: 12/23/22 87-year-old patient with past medical history significant for CVA, hyperlipidemia, hypertension seizure disorder history of DVT or to the emergency department by family secondary to increased confusion. Per chart review patient has not slept in 3 days and was hallucinating and was brought to the ED for f urther evaluation patient had similar presentation in the past and was seen by neurology in June 2022 for concern for hand tremors and suspicion for focal seizure. * Workup initiated in ER included CBC which showed normal WC count normal hemoglobin and platelet count INR within normal limits * Serum chemistry showed sodium of 140 potassium 4.6, Kasia 33 BUN 20 creatinine 0.76 AST of 38 ALT of 15 troponin within normal limits * Urinalysis obtained showed WBC bacteria excessive squamous epithelial cells appeared urinalysis is ordered * Patient had urine toxicology done which was positive for opiates CT head obtained in ED was negative * X-ray shows subtle opacity however no suspicion for pneumonia at this point normal white cell count * EKG obtained in ER showed sinus rhythm * Patient is a poor historian historian, No family at bedside during my eval, Chart reviewed in History taking * 12/19/22: Patient seen and evaluated bedside, patient alert and oriented to person only, mentation has improved slightly. Blood work reviewed CBC within normal limits serum chemistry shows potassium of 5.4 which will be repeated. Patient remains afebrile, continue IV Rocephin home medications reviewed and reconciled * 12/20/22: Patient seen and evaluated bedside. Patient was noted to be alert and oriented 2. Blood pressure is stable, CRP elevated at 6.4 BNP 250 WBC 11.9 * 12/21/22: Patient evaluated bedside, patient was delirious overnight, had an episode of fall did not hit her head. Per nursing staff mentation slightly better. On my assessment patient is alert to person and situation. Patient is having significant sundowning we will initiate Seroquel tonight as well. Serum chemistry within normal limits CBC essentially normal as well venous blood gas obtained showed pCO2 of 51 pH of 7.34. Reviewed by pulmonary medicine as well etiology for delirium likely secondary to UTI. Patient will likely need to be discharged to rehab facility once mentation improves 12/22. Patient seen and examined. Labs were done this morning showed WBC 6.6, hemoglobin 11.1, sodium 142, potassium 4.3, BUN 11.5, creatinine 0.8. Vital signs temperature 99.7, heart rate 64, respirations 16, blood pressure 161/69. EeG done does not show any seizure-like activity. MRI brain pending 12/23. Patient seen and examined. Son at the bedside. MRI brain done showed acute/subacute foci of ischemia within the peripheral right parietal, temporal and occipital lobes. Mental status is improving. No acute issues overnight REVIEW OF SYSTEMS: CONSTITUTIONAL: No fever, no malaise,. CARDIOVASCULAR: No chest pain, no palpitations, no syncope. PULMONARY: No shortness of breath, no cough, GASTROINTESTINAL: No diarrhea, no nausea, no vomiting, no abdominal pain. NEUROLOGICAL: No headaches, no weakness, PHYSICAL EXAMINATION: GENERAL: The patient is alert , not in any acute distress. Well developed, well nourished. HEENT: Pupils are round and equally reacting to light. EOMI. No scleral icterus. No conjunctival pallor. Normocephalic, atraumatic. No pharyngeal erythema. No thyromegaly. CARDIOVASCULAR: S1 and S2 present. No murmurs, rubs, or gallops. PULMONARY: Chest is clear to auscultation, no wheezing or crackles. ABDOMEN: Soft, nontender, nondistended, normoactive bowel sounds. No palpable organomegaly. MUSCULOSKELETAL: No joint swelling or deformity. EXTREMITIES: No cyanosis, clubbing, or pedal edema. NEUROLOGICAL: Gross neurological examination did not reveal any focal deficits. SKIN: No rashes. Assessment and plan Urinary tract infection * Acute metabolic encephalopathy * Acute stroke * Acute delirium * History of COPD with chronic hypoxic respiratory failure * History of seizure disorder * History of DVT * Dyslipidemia * In regards to urinary tract infection, continue patient on IV Rocephin day , appropriately resuscitated with fluids * In regards to acute encephalopathy CT head negative, neurology consulted, EEG negative for any seizure-like activity. MRI brain done showed acute/subacute foci of ischemia within the peripheral right parietal, temporal and occipital lobes. Neurology following * In regards to history of seizure continue Keppra * In regards to history of COPD, and chronic hypoxic respiratory failure patient is supposed to wear 2-3 L of oxygen at home patient appears at baseline * In regards to history of DVT continue Eliquis * Continue to follow up on vitals, CBC basic metabolic panel * Pulmonology and neurology are following Labs and medication were reviewed.. Continue same treatment. Continue with symptomatic treatment. Resume home medication. Monitor labs and vitals. DVT and GI prophylaxis. Further recommendations as per clinical course of the patient Dictation was produced using [employer] dictation software. please excuse any grammatical, word or spelling errors. Objective - Vital Signs Vital signs: Vital Signs Temp 97.7 F 12/23/22 12:54 Pulse 91 12/23/22 12:54 Resp 16 12/23/22 12:54 BP 164/79 12/23/22 12:54 Pulse Ox 96 12/23/22 12:54 FiO2 Intake & Output 12/22/22 12/23/22 12/23/22 18:59 06:59 18:59 Intake Total 590 Balance 590 Intake: Oral 590 Other: Voiding Method Bedside Commode # Voids 1 2 - Labs CBC & Chem 7: 12/22/22 05:41 12/22/22 05:41 Labs: Abnormal Lab Results - Last 24 Hours (Table) 12/22/22 Range/Units 05:41 HDL Cholesterol 37.30 L (40.00-60.00) mg/dL
[2022-12-23] MEDS: SODIUM CHLORIDE 0.9% 1,000 ML IV SCH (16:18)
--- NOTE | 2022-12-23 16:46 | P.CRDCN ---
History of Present Illness Consult date: 12/23/22 Consult reason: atrial fibrillation Chief complaint: ams History of present illness: History of present illness: Patient is a pleasant 87-year-old female with significant past medical history of stroke, questionable seizures, bradycardia, atrial fibrillation, rate carotid endarterectomy, and hypertension who presented to the emergency department due to altered mental status. She was found to have a urinary tract infection. Cardiology was consulted due to recurrent CVA and consideration for changing anticoagulation. MRI brain showed acute/subacute foci of ischemia within the peripheral right parietal, temporal and occipital lobes. She had a carotid ultrasound that shows significant carotid stenosis and bilateral ICAs. LDL is 51, BNP 660, creatinine 0.8. EKG shows sinus rhythm with first-degree AV block, nonspecific T-wave abnormality. Senna bedside reports that patient still has some confusion but overall her mentation has improved greatly. Patient reports feeling exhausted. She denies any chest pain or pressure. She denies any shortness of breath, dizziness, passing out. REVIEW OF SYSTEMS: No fever or chills. No cough or expectoration. No diaphoresis. Patient denies headache, dizziness, blurred vision, double vision. Patient denies any stomach discomfort. No nausea, vomiting. No hematochezia. No hematemesis. Denies any black stools or blood in his stools. Denies dysuria or hematuria. No muscle weakness or numbness. No chest pain or pressure. Reports confusion. PHYSICAL EXAMINATION: This is a 87-year-old female in no apparent distress at the time of my examination. HEENT: Head is atraumatic, normocephalic. Pupils are equal, round. Sclerae anicteric. Conjunctivae are clear. Mucous membranes of the mouth are moist. Neck is supple. Left carotid bruit is heard. CHEST EXAMINATION: Lungs are clear to auscultation. No chest wall tenderness is noted on palpation or with deep breathing. HEART EXAMINATION: Heart regular rate and rhythm. S1, S2 heard. No murmurs, gallops or rub. ABDOMEN: Soft, nontender. Bowel sounds are heard. EXTREMITIES: 2+ peripheral pulses with no evidence of peripheral edema and no calf tenderness noted. NEUROLOGIC EXAMINATION: Patient is awake, alert and oriented x2, some confusion. IMPRESSION AND PLAN: Paroxysmal atrial fibrillation CVA Significant carotid stenosis bilaterally per Doppler ultrasound Hypertension Altered mental status Urinary tract infection PLAN: Echocardiogram is pending. Recommend continuing current anticoagulation at this time. We will follow. I am dictating on behalf of Dr. Jordan Hernandez's history/physical and as sessment/plan. 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,, emphysema; hypoglycemia, hx breast cancer, History of Any Multi-Drug Resistant Organisms: None Reported Past Surgical History: Back Surgery, Breast Surgery, Cholecystectomy, Heart Catheterization Additional Past Surgical History / Comment(s): L SUBCLAVIAN ARTERY BYPASS, Rt CAROTID ENDARTECTOMY, rt breast lumpectomy Past Anesthesia/Blood Transfusion Reactions: No Reported Reaction Additional Past Anesthesia/Blood Transfusion Reaction / Comment(s): PT RECIEVED BLOOD TRANSFUSION Past Psychological History: Anxiety Smoking Status: Former smoker Past Alcohol Use History: None Reported Past Drug Use History: None Reported - Past Family History Brother(s) Family Medical History: Cancer Sister(s) Family Medical History: Cancer Mother Family Medical History: Coronary Artery Disease (CAD) Additional Family Medical History / Comment(s): enlarged heart Father Family Medical History: Coronary Artery Disease (CAD), CVA/TIA Medications and Allergies Home Medications Medication Instructions Recorded Confirmed Type Pravastatin Sodium [Pravachol] 40 mg PO DAILY 08/04/13 12/18/22 History Ferrous Sulfate [Iron (65 MG 325 mg PO DAILY 02/05/17 12/18/22 History Elemental)] Pantoprazole [Protonix] 40 mg PO DAILY 04/11/18 12/18/22 History Albuterol Inhaler [Ventolin Hfa 2 puff INHALATION RT-Q6H PRN 04/29/22 12/18/22 History Inhaler] Apixaban [Eliquis] 2.5 mg PO BID 04/29/22 12/18/22 History DULoxetine HCL [Cymbalta] 30 mg PO DAILY 04/29/22 12/18/22 History Denosumab [Prolia] 60 mg SQ Q180D 04/29/22 12/18/22 History Furosemide [Lasix] 20 mg PO DAILY 04/29/22 12/18/22 History Isosorbide Mononitrate ER [Imdur] 30 mg PO DAILY 04/29/22 12/18/22 History Melatonin 1 mg PO HS 04/29/22 12/18/22 History Aspirin 81 mg PO DAILY 30 Days #30 tab 05/17/22 12/18/22 Rx Acetaminophen-Codeine 300-30mg 1 tab PO BID PRN 07/20/22 12/18/22 History [Tylenol w/codeine #3] Cholecalciferol [Vitamin D3 (25 25 mcg PO DAILY 09/30/22 12/18/22 History Mcg = 1000 Iu)] levETIRAcetam [Keppra] 500 mg PO Q12HR 09/30/22 12/18/22 History Ascorbic Acid [Vitamin C] 500 mg PO DAILY 10/27/22 12/18/22 History Allergies Allergy/AdvReac Type Severity Reaction Status Date / Time No Known Allergies Allergy Verified 12/18/22 09:25 Physical Exam Vitals: Vital Signs Temp Pulse Resp BP Pulse Ox 12/23/22 12:54 97.7 F 91 16 164/79 96 12/23/22 07:37 98.4 F 81 14 162/72 100 12/23/22 01:26 98.4 F 77 18 150/74 90 L 12/22/22 19:09 98.1 F 78 17 97 Intake and Output 12/23/22 12/23/22 12/23/22 06:59 14:59 22:59 Intake Total 590 Balance 590 Intake: Oral 590 Other: # Voids 2 3 Results 12/22/22 05:41 12/22/22 05:41 Lipids 12/22/22 Range/Units 05:41 Triglycerides 59.50 (0.00-149.00) mg/dL Cholesterol 101.00 (0.00-200.00) mg/dL HDL Cholesterol 37.30 L (40.00-60.00) mg/dL Cholesterol/HDL Ratio 2.71 Ratio Current Medications Generic Name Dose Route Start Last Admin Trade Name Freq PRN Reason Stop Dose Admin Acetaminophen 650 mg 12/18/22 15:10 Acetaminophen Tab 325 Mg Tab PO Q6HR PRN Mild Pain or Fever > 100.5 Acetaminophen/Codeine Phosphate 1 each 12/18/22 10:22 12/19/22 10:27 Acetaminophen-Codeine 300-30mg Tab PO 1 each BID PRN Administration Pain Albuterol Sulfate 2.5 mg 12/18/22 10:22 12/21/22 07:48 Albuterol Nebulized 2.5 Mg/3 Ml INHALATION 2.5 mg RT-Q6H PRN Administration Shortness Of Breath Apixaban 2.5 mg 12/18/22 10:30 12/23/22 08:57 Apixaban 2.5 Mg Tablet PO 2.5 mg BID JARETH Administration Protocol Ascorbic Acid 500 mg 12/18/22 10:30 12/23/22 08:58 Ascorbic Acid 500 Mg Tab PO 500 mg DAILY JARETH Administration Aspirin 81 mg 12/18/22 10:30 12/23/22 08:57 Aspirin 81 Mg PO 81 mg DAILY JARETH Administration Cholecalciferol 25 mcg 12/18/22 10:30 12/23/22 08:58 Cholecalciferol 25 Mcg (1000 Iu) Tablet PO 25 mcg DAILY JARETH Administration Duloxetine HCl 30 mg 12/18/22 10:30 12/23/22 08:58 Duloxetine Hcl 30 Mg Capsule.Dr PO 30 mg DAILY JARETH Administration Ferrous Sulfate 325 mg 12/18/22 10:30 12/23/22 08:58 Ferrous Sulfate 325 Mg Tab PO 325 mg DAILY JARETH Administration Furosemide 20 mg 12/20/22 09:00 12/23/22 08:58 Furosemide 20 Mg Tab PO 20 mg DAILY JAERTH Administration Hydralazine HCl 10 mg 12/18/22 15:17 12/21/22 20:06 Hydralazine Hcl 20 Mg/Ml 1 Ml Vial IVP 10 mg Q6HR PRN Administration Blood Pressure - High Ceftriaxone Sodium 2 gm/ 50 mls @ 100 mls/hr 12/19/22 20:00 12/22/22 20:02 Sodium Chloride IVPB 100 mls/hr Q24H JARETH Administration Protocol Sodium Chloride 1,000 mls @ 20 mls/hr 12/18/22 15:15 12/23/22 16:18 Saline 0.9% IV Not Given .Q24H JARETH Isosorbide Mononitrate 30 mg 12/18/22 10:30 12/23/22 08:58 Isosorbide Mononitrate Er 30 Mg Tab.Er.24h PO 30 mg DAILY JARETH Administration Levetiracetam 500 mg 12/18/22 10:30 12/23/22 08:57 Levetiracetam 500 Mg Tab PO 500 mg Q12HR JARETH Administration Melatonin 1 mg 12/18/22 21:00 12/22/22 20:02 Melatonin 1 Mg Tab PO 1 mg HS JARETH Administration Naloxone HCl 0.2 mg 12/18/22 13:38 Naloxone 0.4 Mg/Ml 1 Ml Vial IV Q2M PRN Opioid Reversal Ondansetron HCl 4 mg 12/18/22 15:10 Ondansetron 4 Mg/2 Ml Vial IVP Q8HR PRN Nausea And Vomiting Pantoprazole Sodium 40 mg 12/18/22 10:30 12/23/22 08:58 Pantoprazole 40 Mg Tablet PO 40 mg [id number] JARETH Administration Pravastatin Sodium 40 mg 12/18/22 10:30 12/23/22 08:57 Pravastatin Sodium 40 Mg Tab PO 40 mg DAILY JARETH Administration Quetiapine Fumarate 25 mg 12/21/22 21:00 12/22/22 20:02 Quetiapine 25 Mg Tab PO 25 mg HS JARETH Administration Intake and Output 12/23/22 12/23/22 12/23/22 06:59 14:59 22:59 Intake Total 590 Balance 590 Intake: Oral 590 Other: # Voids 2 3 12/22/22 05:41 12/22/22 05:41
[2022-12-23] MEDS: MELATONIN 1 MG TAB PO SCH (20:26)
[2022-12-23] MEDS: QUEtiapine 25 MG TAB PO SCH (20:27)
[2022-12-24] MEDS: levETIRAcetam 500 MG TAB PO SCH ×2 (09:03→20:54)
[2022-12-24] MEDS: FUROSEMIDE 20 MG TAB PO SCH (09:03)
[2022-12-24] MEDS: PRAVASTATIN SODIUM 40 MG TAB PO SCH (09:03)
[2022-12-24] MEDS: ASPIRIN 81 MG PO SCH (09:03)
[2022-12-24] MEDS: CHOLECALCIFEROL 25 MCG (1000 IU) TABLET PO SCH (09:03)
[2022-12-24] MEDS: APIXABAN 2.5 MG TABLET PO SCH ×2 (09:03→20:54)
[2022-12-24] MEDS: FERROUS SULFATE 325 MG TAB PO SCH (09:03)
[2022-12-24] MEDS: ASCORBIC ACID 500 MG TAB PO SCH (09:03)
[2022-12-24] MEDS: DULoxetine HCL 30 MG CAPSULE.DR PO SCH (09:04)
[2022-12-24] MEDS: ISOSORBIDE MONONITRATE ER 30 MG TAB.ER.24H PO SCH (09:04)
[2022-12-24] MEDS: PANTOPRAZOLE 40 MG TABLET PO SCH (09:04)
--- NOTE | 2022-12-24 10:09 | P.PN ---
Subjective Progress Note Date: 12/23/22 Patient was initially seen by Dr. James Felder. Please refer to his note for details. Patient is a 87-year-old female who presents with confusion and had a UTI. Last Sunday, she had left upper extremity weakness. MRI of the brain was done and showed acute stroke. Patient is currently on Eliquis 2.5 mg twice a day and aspirin 81 mg. Cardiology has been consulted. Patient at present is laying comfortably in the bed. Offers no complaints. Some of the workup during his hospital visit consisted of: Urinalysis seems possible suggestive of underlying acute UTI. Urine drug screen is positive for opiates. Otherwise rest is nondetected and serum alcohol was less than 10. CT of the head is reported as no acute intracranial process. I personally reviewed this study head and I agree there is no acute subacute ischemia. The patient has similar encephalomalacia in the left superior cerebellar as well as the right frontal. Routine EEG is abnormal. The background slowing is suggestive of mild encephalopathy. Otherwise there is no focal slowing, epileptiform discharges or seizure on the EEG Objective - Vital Signs Vital signs: Vital Signs Temp 97.7 F 12/23/22 12:54 Pulse 91 12/23/22 12:54 Resp 16 12/23/22 12:54 BP 164/79 12/23/22 12:54 Pulse Ox 96 12/23/22 12:54 FiO2 Intake & Output 12/22/22 12/23/22 12/23/22 18:59 06:59 18:59 Intake Total 590 Balance 590 Intake: Oral 590 Other: Voiding Method Bedside Commode # Voids 1 2 3 - Exam Patient is an elderly Afro-Italian female, in no acute distress. She is alert and awake. Patient knows it is November and the year is and that she is in [facility]. She knows her name and her age of 87 years. Speech and language functions are normal. Patient can name and repeat very well. On cranial nerve examination pupils are equal, round and reacting, visual everett are full with no neglect. Extraocular muscles are intact. Face is symmetric. Tongue protrudes the midline. 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 Deltoid appears weak probably from arthritis. Ankle dorsiflexion are equal. Patient does not give good effort for hip flexion, but is equal. Sensory touch is equal. No obvious ataxia for [id number] testing. - Labs CBC & Chem 7: 12/22/22 05:41 12/22/22 05:41 Labs: Abnormal Lab Results - Last 24 Hours (Table) 12/22/22 Range/Units 05:41 HDL Cholesterol 37.30 L (40.00-60.00) mg/dL Assessment and Plan Assessment: This is an 87-year-old woman who presented emergency department because of altered mental status. She was found to have acute urinary tract infection. Her mentation is improved. Altered mental status seems due to underlying acute UTI and her mentation is improved. Episode of worsening left upper extremity weakness that is transient: Rule out acute ischemic stroke vs result of of her undelrying infection. Probable acute UTI Prior episode of left hand tremor with episode of aphasia in June 2022 and I felt possible seizure especially with the old stroke which can be the culprit of seizure. She had an EEG at that time which was normal and she was placed on Keppra. 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 History of bradycardia History of atrial fibrillation on eliquis Chronic back pain History of breast cancer Plan: She is continued on her home dose of Keppra 500 mg every 12 hours. Routine EEG: Mild encephalopathy. NO seizure or discharges. MRI brain with and without contrast revealed acute/subacute foci of ischemia within the peripheral right parietal, temporal and occipital lobes. No abnormal contrast enhancement. Remote ischemic injuries to the right frontal, right parietal occipital, right thalamus and left cerebellum. Nonspecific white matter changes, likely related to chronic small vessel ischemic disease. I personally reviewed MRI agree with the findings. Dr. Felder has discussed with the patient's and he stated patient has been compliant with eliquis 2.5mg bid and taking ASA 81mg. The son stated she was doing well at home beside her confusion and delerium from UTI and had good strength while at home and been taken to hospital by EMS. But felt this Sunday12/19/2022 that's her weakness started. Await 2D echo Carotid duplex revealed significant stenosis in the bilateral ICA is taught present. Advise repeat CTA or MRA of the neck to further evaluate. Antegrade flow in both vertebral arteries. Patient had a CTA head and neck done on 07/20/2022 which reported mild stenosis bilateral carotid bifurcations. This is approaching 50% on the left. No acute changes [place]. Patient had a carotid Doppler also performed recently on 05/15/2022, which revealed elevated ICA peak systolic velocities likely on the basis of turbulent flow as the end-diastolic velocities and ICA/CCA ratios fall within normal limits. I do not believe patient has significant carotid stenosis. Lipid panel with cholesterol 101, LDL 51, HDL 37, triglycerides 59. Continue pravastatin 40 mg daily. Hemoglobin A1c 5.9 on 07/20/2022. Dr. Felder has recommended either going up on eliquis since continues to have stroke and per son is compliant taking medication (eliquis and asa) vs switch to different anticoagulation. Cardiology on board. Dr. Felder had updated patient's son (Mitchell) of findings of MRI and answered all his questions. We'll defer the rest of the medical management to the primary team The plan discussed with her nurse. We'll continue to follow.
--- NOTE | 2022-12-24 12:54 | P.PN ---
Subjective Progress Note Date: 12/24/22 87-year-old patient with past medical history significant for CVA, hyperlipidemia, hypertension seizure disorder history of DVT or to the emergency department by family secondary to increased confusion. Per chart review patient has not slept in 3 days and was hallucinating and was brought to the ED for f urther evaluation patient had similar presentation in the past and was seen by neurology in June 2022 for concern for hand tremors and suspicion for focal seizure. * Workup initiated in ER included CBC which showed normal WC count normal hemoglobin and platelet count INR within normal limits * Serum chemistry showed sodium of 140 potassium 4.6, Kasia 33 BUN 20 creatinine 0.76 AST of 38 ALT of 15 troponin within normal limits * Urinalysis obtained showed WBC bacteria excessive squamous epithelial cells appeared urinalysis is ordered * Patient had urine toxicology done which was positive for opiates CT head obtained in ED was negative * X-ray shows subtle opacity however no suspicion for pneumonia at this point normal white cell count * EKG obtained in ER showed sinus rhythm * Patient is a poor historian historian, No family at bedside during my eval, Chart reviewed in History taking * 12/19/22: Patient seen and evaluated bedside, patient alert and oriented to person only, mentation has improved slightly. Blood work reviewed CBC within normal limits serum chemistry shows potassium of 5.4 which will be repeated. Patient remains afebrile, continue IV Rocephin home medications reviewed and reconciled * 12/20/22: Patient seen and evaluated bedside. Patient was noted to be alert and oriented 2. Blood pressure is stable, CRP elevated at 6.4 BNP 250 WBC 11.9 * 12/21/22: Patient evaluated bedside, patient was delirious overnight, had an episode of fall did not hit her head. Per nursing staff mentation slightly better. On my assessment patient is alert to person and situation. Patient is having significant sundowning we will initiate Seroquel tonight as well. Serum chemistry within normal limits CBC essentially normal as well venous blood gas obtained showed pCO2 of 51 pH of 7.34. Reviewed by pulmonary medicine as well etiology for delirium likely secondary to UTI. Patient will likely need to be discharged to rehab facility once mentation improves 12/22. Patient seen and examined. Labs were done this morning showed WBC 6.6, hemoglobin 11.1, sodium 142, potassium 4.3, BUN 11.5, creatinine 0.8. Vital signs temperature 99.7, heart rate 64, respirations 16, blood pressure 161/69. EeG done does not show any seizure-like activity. MRI brain pending 12/23. Patient seen and examined. Son at the bedside. MRI brain done showed acute/subacute foci of ischemia within the peripheral right parietal, temporal and occipital lobes. Mental status is improving. No acute issues overnight 12/24. Patient seen and examined. Lethargic, answering questions. REVIEW OF SYSTEMS: CONSTITUTIONAL: No fever, no malaise,. CARDIOVASCULAR: No chest pain, no palpitations, no syncope. PULMONARY: No shortness of breath, no cough, GASTROINTESTINAL: No diarrhea, no nausea, no vomiting, no abdominal pain. NEUROLOGICAL: No headaches, no weakness, PHYSICAL EXAMINATION: GENERAL: The patient is alert , not in any acute distress. Well developed, well nourished. HEENT: Pupils are round and equally reacting to light. EOMI. No scleral icterus. No conjunctival pallor. Normocephalic, atraumatic. No pharyngeal erythema. No thyromegaly. CARDIOVASCULAR: S1 and S2 present. No murmurs, rubs, or gallops. PULMONARY: Chest is clear to auscultation, no wheezing or crackles. ABDOMEN: Soft, nontender, nondistended, normoactive bowel sounds. No palpable organomegaly. MUSCULOSKELETAL: No joint swelling or deformity. EXTREMITIES: No cyanosis, clubbing, or pedal edema. NEUROLOGICAL: Alert, moving all extremities SKIN: No rashes. Assessment and plan Urinary tract infection * Acute metabolic encephalopathy * Acute stroke * Acute delirium * History of COPD with chronic hypoxic respiratory failure * History of seizure disorder * History of DVT * Dyslipidemia * In regards to urinary tract infection, continue patient on IV Rocephin day , appropriately resuscitated with fluids * In regards to acute encephalopathy CT head negative, neurology consulted, EEG negative for any seizure-like activity. MRI brain done showed acute/subacute foci of ischemia within the peripheral right parietal, temporal and occipital lobes. Neurology following. PT and OT consulted * In regards to history of seizure continue Keppra * In regards to history of COPD, and chronic hypoxic respiratory failure patient is supposed to wear 2-3 L of oxygen at home patient appears at baseline * In regards to history of DVT continue Eliquis * Continue to follow up on vitals, CBC basic metabolic panel * Pulmonology and neurology are following Labs and medication were reviewed.. Continue same treatment. Continue with symptomatic treatment. Resume home medication. Monitor labs and vitals. DVT and GI prophylaxis. Further recommendations as per clinical course of the patient Dictation was produced using [employer] dictation software. please excuse any grammatical, word or spelling errors. Objective - Vital Signs Vital signs: Vital Signs Temp 97.7 F 12/24/22 12:09 Pulse 78 12/24/22 12:09 Resp 17 12/24/22 12:09 BP 142/72 12/24/22 12:09 Pulse Ox 99 12/24/22 12:09 FiO2 Intake & Output 12/23/22 12/24/22 12/24/22 18:59 06:59 18:59 Intake Total 590 Balance 590 Intake: Intake, IV Titration 50 Amount cefTRIAXone 2 gm In 50 Sodium Chloride 0.9% 50 ml @ 100 mls/hr IVPB Q24H [facility] Rx#:[id number] Oral 540 Other: Voiding Method Bedside Commode # Voids 1 1 1 - Labs CBC & Chem 7: 12/22/22 05:41 12/22/22 05:41 Labs: Microbiology - Last 24 Hours (Table) 12/18/22 13:46 Blood Culture - Final Blood 12/18/22 13:46 Blood Culture - Final Blood
--- NOTE | 2022-12-24 13:04 | P.PN ---
Subjective Progress Note Date: 12/24/22 87-year-old female patient with known history of COPD, on home oxygen at 2 L per min nasal cannula. The patient was has less for altered mental status. She has previous history of CVA hypertension hyperlipidemia and previous history of seizure disorder and DVT. The patient presented to the hospital because of altered mentation and hallucination. The most recent blood count shows a WD of 11.9 with a hemoglobin 11.3 and a platelet count of 244, sodium is at 138, bicarb is at 27. BUN is at 16 with a creatinine of 0.9 and the sugars are within normal limits. Calcium levels at 8.4. C-reactive protein is 6.0. The patient's blood culture still pending. There is a suspicion that the patient may have an underlying her tract infection. Her UA was abnormal with 50 WBCs, 2 RBCs. The patient was 7 IV Rocephin. It was noted that the patient is having episodic hypoxemia and the patient is currently on 2 L O2 nasal cannula with a pulse ox of 96% pH is afebrile for now patient is also hemodynamically stable. In terms of her mental status change, CAT scan of the brain was done in the emergency department. The CAT scan of the brain showed no evidence of any acute intracranial process. There is remote CVA involving the right frontal lobe and left superior cerebellum. Nevertheless, today's evaluation, the patient is reporting some ongoing weakness in her left upper extremity. She is quite weak and debilitated at this point in time. Neurology is on the case. She remains alert and oriented 2. Chest x-ray showed no evidence of any acute pulmonary infiltrates. EKG showing a normal sinus rhythm. She is essentially poor historian. LFTs are within normal limits. On today's evaluation of 12/21/2022, the patient remains confused. No focal neurological deficit or any form of new onset neurological deficits. She is afebrile and she is hemodynamically stable. The white cell count of 8.6 with a hemoglobin of 12.9. BUN is at 30 with a creatinine of 0.5. Pro-calcitonin level was at 4.5 indicating underlying infection/sepsis. the urine culture was negative. The blood culture was negative. The patient is still suspected to have an underlying her tract infection and the basilar original urinalysis of the time of admission. No other clear source of infection at this point in time. . The patient remains on IV Rocephin. Rest of the home medications have been all resume.The chest x-ray shows some limited bibasilar pulmonary atelectatic changes. No cough. No sputum production. No signs of a pneumonia at this point in time. 12/22/2022, the patient is less confused compared to yesterday. She is following commands and answering questions more appropriately compared to yesterday. She is on IV Rocephin. Urine cultures were negative. Blood cultures were negative. Unresponsive 6.6, hemoglobin 11.1, platelet count is 235, BUN is 11 creatinine 0.8 and sodium was at 142. The patient has no respiratory difficulties. Pulse ox 98% liters of oxygen by nasal cannula. Tolerating diet. On today's evaluation of 12/23/2022, the patient has no specific complaints to she is, comfortable. No respiratory difficulties. She remains on IV Rocephin. She remains on anticoagulation with Eliquis. Home medications and resume. No agitation. Tolerating her diet. She remains on 2 L of oxygen by nasal cannula with a pulse ox of 99%. On today's evaluation of 12/24/2022, the patient is resting comfortably in bed. Continues to have episodes of confusion especially overnight. This is probably related to delirium. No respiratory difficulties for now. No respiratory distress at this point in time. Cultures are all negative. Most recent blood work have been all within normal limits. A repeat pro-calcitonin level has been ordered and the results are still pending for now. She is arousable. She answers questions. She is on 3 L with a pulse ox of 99%. Objective - Vital Signs Vital signs: Vital Signs Temp 97.7 F 12/24/22 12:09 Pulse 78 12/24/22 12:09 Resp 17 12/24/22 12:09 BP 142/72 12/24/22 12:09 Pulse Ox 99 12/24/22 12:09 FiO2 Intake & Output 12/23/22 12/24/22 12/24/22 18:59 06:59 18:59 Intake Total 590 Balance 590 Intake: Intake, IV Titration 50 Amount cefTRIAXone 2 gm In 50 Sodium Chloride 0.9% 50 ml @ 100 mls/hr IVPB Q24H [facility] Rx#:[id number] Oral 540 Other: Voiding Method Bedside Commode # Voids 1 1 1 - Labs CBC & Chem 7: 12/22/22 05:41 12/22/22 05:41 Labs: Microbiology - Last 24 Hours (Table) 12/18/22 13:46 Blood Culture - Final Blood 12/18/22 13:46 Blood Culture - Final Blood Assessment and Plan Plan: COPD with chronic hypoxemia current on 2 L of oxygen by nasal cannula. No evidence of any COPD exacerbation or pneumonia. The patient has diffuse centrilobular emphysema. The patient also has scattered subpleural areas of vesiculation/scarring, likely chronic. No evidence of any consolidation or airspace disease or pneumonias. Overall respiratory status remains stable Altered mental status currently under investigation, could be related to underlying her tract infection. Neurology is also investigating the patient regarding any recurrent CVA. On today's evaluation, the mental status is more appropriate although the patient does have some underlying cognitive impairment which is on a chronic basis. Previous history of CVA involving the right frontal and left cerebellar based on the CAT scan findings. Most recent MRI of the brain that was done on 08/21/2022 showed age-related atrophy and chronic small vessel ischemic changes. No enhancing lesions seen. Left-sided weakness, acute versus chronic, likely subacute on that investigation History of breast cancer Hypertension Hyperlipidemia Previous history of DVT Plan Monitor mentation Clinically stable Cultures are negative Pro calcitonin level is elevated, to be monitored, there is also still pending Supplemental O2 to maintain a saturation above 90% Using the DuoNeb about treatments when necessary and as needed Continue anticoagulation with Eliquis 2.5 mg by mouth twice a day Continue aspirin IV Rocephin, chemistry Tavo IV fluids at KVO Previous echocardiogram showing preserved LV function Neurology follow-up Chest x-ray findings of essentially chronic Pulmonary and critical care services will sign off
--- NOTE | 2022-12-24 13:45 | P.PN ---
Subjective Progress Note Date: 12/24/22 History of present illness: Patient is a pleasant 87-year-old female with significant past medical history of stroke, questionable seizures, bradycardia, atrial fibrillation, rate carotid endarterectomy, and hypertension who presented to the emergency department due to altered mental status. She was found to have a urinary tract infection. Cardiology was consulted due to recurrent CVA and consideration for changing anticoagulation. MRI brain showed acute/subacute foci of ischemia within the peripheral right parietal, temporal and occipital lobes. She had a carotid ultrasound that shows significant carotid stenosis and bilateral ICAs. LDL is 51, BNP 660, creatinine 0.8. EKG shows sinus rhythm with first-degree AV block, nonspecific T-wave abnormality. Senna bedside reports that patient still has some confusion but overall her mentation has improved greatly. Patient reports feeling exhausted. She denies any chest pain or pressure. She denies any shortness of breath, dizziness, passing out. 12/24/2022 Patient with some confusion. No chest pain or shortness of breath. ECHO is pending. PHYSICAL EXAMINATION: This is a 87-year-old female in no apparent distress at the time of my examination. HEENT: Head is atraumatic, normocephalic. Pupils are equal, round. Sclerae anicteric. Conjunctivae are clear. Mucous membranes of the mouth are moist. Neck is supple. Left carotid bruit is heard. CHEST EXAMINATION: Lungs are clear to auscultation. No chest wall tenderness is noted on palpation or with deep breathing. HEART EXAMINATION: Heart regular rate and rhythm. S1, S2 heard. No murmurs, gallops or rub. ABDOMEN: Soft, nontender. Bowel sounds are heard. EXTREMITIES: 2+ peripheral pulses with no evidence of peripheral edema and no calf tenderness noted. NEUROLOGIC EXAMINATION: Patient is awake, alert and oriented x2, some confusion. IMPRESSION AND PLAN: Paroxysmal atrial fibrillation CVA Significant carotid stenosis bilaterally per Doppler ultrasound Hypertension Altered mental status Urinary tract infection PLAN: Echocardiogram is still pending. Recommend continuing current anticoagulation at this time. We will follow. I am dictating on behalf of Dr. Jordan Hernandez's history/physical and assessment/plan. Objective - Vital Signs Vital signs: Vital Signs Temp 98.5 F 12/24/22 07:23 Pulse 84 12/24/22 07:23 Resp 18 12/24/22 07:23 BP 135/88 12/24/22 07:23 Pulse Ox 94 L 12/24/22 07:23 FiO2 Intake & Output 12/23/22 12/24/22 12/24/22 18:59 06:59 18:59 Intake Total 590 Balance 590 Intake: Intake, IV Titration 50 Amount cefTRIAXone 2 gm In 50 Sodium Chloride 0.9% 50 ml @ 100 mls/hr IVPB Q24H [facility] Rx#:[id number] Oral 540 Other: Voiding Method Bedside Commode # Voids 1 1 - Labs CBC & Chem 7: 12/22/22 05:41 12/22/22 05:41 Labs: Microbiology - Last 24 Hours (Table) 12/18/22 13:46 Blood Culture - Final Blood 12/18/22 13:46 Blood Culture - Final Blood
[2022-12-24] MEDS: SODIUM CHLORIDE 0.9% 1,000 ML IV SCH (16:31)
[2022-12-24] MEDS: MELATONIN 1 MG TAB PO SCH (20:54)
[2022-12-24] MEDS: QUEtiapine 25 MG TAB PO SCH (20:54)
[2022-12-25 09:02] LABS: ALT 15 U/L (8-44); AST 23 U/L (13-35); Albumin 3.6 d/dL (3.8-4.9); Alkaline Phosphatase 55 U/L (41-126); BUN/Creat Ratio 14.57 Ratio (12.00-20.00); Blood Urea Nitrogen 10.2 mg/dL (9.0-27.0); Calcium 8.4 mg/dL (8.7-10.3); Carbon Dioxide 36.8 mmol/L (21.6-31.8); Chloride 99 mmol/L (96-109); Glucose 105 mg/dL (70-110); Potassium 3.8 mmol/L (3.5-5.5); Sodium 144 mmol/L (135-145); Total Bilirubin <0.2 mg/dL (0.3-1.2); Total Protein 5.6 d/dL (6.2-8.2)
[2022-12-25] MEDS: CHOLECALCIFEROL 25 MCG (1000 IU) TABLET PO SCH (09:09)
[2022-12-25] MEDS: APIXABAN 2.5 MG TABLET PO SCH ×2 (09:09→20:17)
[2022-12-25] MEDS: DULoxetine HCL 30 MG CAPSULE.DR PO SCH (09:09)
[2022-12-25] MEDS: FERROUS SULFATE 325 MG TAB PO SCH (09:09)
[2022-12-25] MEDS: PANTOPRAZOLE 40 MG TABLET PO SCH (09:09)
[2022-12-25] MEDS: levETIRAcetam 500 MG TAB PO SCH ×2 (09:09→20:17)
[2022-12-25] MEDS: ASCORBIC ACID 500 MG TAB PO SCH (09:09)
[2022-12-25] MEDS: FUROSEMIDE 20 MG TAB PO SCH (09:09)
[2022-12-25] MEDS: SODIUM CHLORIDE 0.9% 1,000 ML IV SCH (09:09)
[2022-12-25] MEDS: ISOSORBIDE MONONITRATE ER 30 MG TAB.ER.24H PO SCH (09:09)
[2022-12-25] MEDS: PRAVASTATIN SODIUM 40 MG TAB PO SCH (09:09)
[2022-12-25] MEDS: ASPIRIN 81 MG PO SCH (09:09)
[2022-12-25 09:23] LABS: Basophils # (A) 0.05 X 10*3/uL (0.00-0.10); Basophils % (A) 0.9 %; Eosinophils % (A) 3.6 %; HCT 38.7 % (37.2-46.3); HGB 11.5 d/dL (12.0-15.0); Lymphocytes # (A) 1.53 X 10*3/uL (0.90-5.00); Lymphocytes % (A) 27.4 %; MCH 27.8 pg (27.0-32.0); MCHC 29.7 d/dL (32.0-37.0); MCV 93.5 FL (80.0-97.0); Mean Platelet Volume 9.4 FL (9.5-12.2); Monocytes # (A) 0.67 X 10*3/uL (0.20-1.00); NRBC Per 100 WBC 0 X 10*3/uL (0.00-0.01); Neutrophils # (A) 3.11 X 10*3/uL (1.80-7.70); Neutrophils % (A) 55.7 %; Platelet Count 246 X 10*3/uL (140-440); RBC 4.14 X 10*6/uL (4.10-5.20); RDW 16.4 % (11.5-14.5); WBC 5.58 X 10*3/uL (4.50-10.00)
--- NOTE | 2022-12-25 11:16 | P.PN ---
Subjective Progress Note Date: 12/25/22 History of present illness: Patient is a pleasant 87-year-old female with significant past medical history of stroke, questionable seizures, bradycardia, atrial fibrillation, rate carotid endarterectomy, and hypertension who presented to the emergency department due to altered mental status. She was found to have a urinary tract infection. Cardiology was consulted due to recurrent CVA and consideration for changing anticoagulation. MRI brain showed acute/subacute foci of ischemia within the peripheral right parietal, temporal and occipital lobes. She had a carotid ultrasound that shows significant carotid stenosis and bilateral ICAs. LDL is 51, BNP 660, creatinine 0.8. EKG shows sinus rhythm with first-degree AV block, nonspecific T-wave abnormality. Senna bedside reports that patient still has some confusion but overall her mentation has improved greatly. Patient reports feeling exhausted. She denies any chest pain or pressure. She denies any shortness of breath, dizziness, passing out. 12/24/2022 Patient with some confusion. No chest pain or shortness of breath. ECHO is pending. 12/25 The patient is seen today in follow-up. She denies any chest pain or shortness of breath. In general she feels well. We are waiting for echocardiogram to be obtained and reported. Blood pressure readings are elevated 168/83, heart rate in the 80s and 90s, pulse ox 100% on 2 L nasal cannula, afebrile. Repeat blood work: Hemoglobin 11.5. Creatinine 0.7. PHYSICAL EXAMINATION: This is a 87-year-old female in no apparent distress at the time of my examination. HEENT: Head is atraumatic, normocephalic. Pupils are equal, round. Sclerae anicteric. Conjunctivae are clear. Mucous membranes of the mouth are moist. Neck is supple. Left carotid bruit is heard. CHEST EXAMINATION: Lungs are clear to auscultation. No chest wall tenderness is noted on palpation or with deep breathing. HEART EXAMINATION: Heart regular rate and rhythm. S1, S2 heard. No murmurs, gallops or rub. ABDOMEN: Soft, nontender. Bowel sounds are heard. EXTREMITIES: 2+ peripheral pulses with no evidence of peripheral edema and no calf tenderness noted. NEUROLOGIC EXAMINATION: Patient is awake, alert and oriented x2, some confusion. IMPRESSION AND PLAN: Paroxysmal atrial fibrillation CVA Significant carotid stenosis bilaterally per Doppler ultrasound Hypertension Altered mental status Urinary tract infection PLAN: Obtain echocardiogram and report If echocardiogram is within normal limits, patient is cleared for discharge from cardiology. Recommend continuing current anticoagulation at this time. Nurse practitioner note has been reviewed, I agree with the documented findings and plan of care. Patient was seen and examined. Objective - Vital Signs Vital signs: Vital Signs Temp 98.1 F 12/25/22 07:20 Pulse 91 12/25/22 07:20 Resp 17 12/25/22 07:20 BP 168/83 12/25/22 07:20 Pulse Ox 99 12/25/22 00:42 FiO2 Intake & Output 12/24/22 12/25/22 12/25/22 18:59 06:59 18:59 Intake Total 120 Balance 120 Weight 69.5 kg Intake: Intake, IV Titration 120 Amount Sodium Chloride 0.9% 1, 120 000 ml @ 20 mls/hr IV . Q24H [facility] Rx#:[id number] Oral 0 Other: Voiding Method Diaper Incontinent # Voids 1 # Bowel Movements 1 - Labs CBC & Chem 7: 12/25/22 06:01 12/25/22 06:01 Labs: Abnormal Lab Results - Last 24 Hours (Table) 12/24/22 Range/Units 06:59 Procalcitonin 0.77 H (0.02-0.09) ng/mL
--- NOTE | 2022-12-25 13:29 | P.PN ---
Subjective Progress Note Date: 12/25/22 87-year-old patient with past medical history significant for CVA, hyperlipidemia, hypertension seizure disorder history of DVT or to the emergency department by family secondary to increased confusion. Per chart review patient has not slept in 3 days and was hallucinating and was brought to the ED for f urther evaluation patient had similar presentation in the past and was seen by neurology in June 2022 for concern for hand tremors and suspicion for focal seizure. * Workup initiated in ER included CBC which showed normal WC count normal hemoglobin and platelet count INR within normal limits * Serum chemistry showed sodium of 140 potassium 4.6, Kasia 33 BUN 20 creatinine 0.76 AST of 38 ALT of 15 troponin within normal limits * Urinalysis obtained showed WBC bacteria excessive squamous epithelial cells appeared urinalysis is ordered * Patient had urine toxicology done which was positive for opiates CT head obtained in ED was negative * X-ray shows subtle opacity however no suspicion for pneumonia at this point normal white cell count * EKG obtained in ER showed sinus rhythm * Patient is a poor historian historian, No family at bedside during my eval, Chart reviewed in History taking * 12/19/22: Patient seen and evaluated bedside, patient alert and oriented to person only, mentation has improved slightly. Blood work reviewed CBC within normal limits serum chemistry shows potassium of 5.4 which will be repeated. Patient remains afebrile, continue IV Rocephin home medications reviewed and reconciled * 12/20/22: Patient seen and evaluated bedside. Patient was noted to be alert and oriented 2. Blood pressure is stable, CRP elevated at 6.4 BNP 250 WBC 11.9 * 12/21/22: Patient evaluated bedside, patient was delirious overnight, had an episode of fall did not hit her head. Per nursing staff mentation slightly better. On my assessment patient is alert to person and situation. Patient is having significant sundowning we will initiate Seroquel tonight as well. Serum chemistry within normal limits CBC essentially normal as well venous blood gas obtained showed pCO2 of 51 pH of 7.34. Reviewed by pulmonary medicine as well etiology for delirium likely secondary to UTI. Patient will likely need to be discharged to rehab facility once mentation improves 12/22. Patient seen and examined. Labs were done this morning showed WBC 6.6, hemoglobin 11.1, sodium 142, potassium 4.3, BUN 11.5, creatinine 0.8. Vital signs temperature 99.7, heart rate 64, respirations 16, blood pressure 161/69. EeG done does not show any seizure-like activity. MRI brain pending 12/23. Patient seen and examined. Son at the bedside. MRI brain done showed acute/subacute foci of ischemia within the peripheral right parietal, temporal and occipital lobes. Mental status is improving. No acute issues overnight 12/24. Patient seen and examined. Lethargic, answering questions. 12/25. Patient seen and examined. Laying comfortably in the bed. Answers questions but responses delayed. REVIEW OF SYSTEMS: CONSTITUTIONAL: No fever, no malaise,. CARDIOVASCULAR: No chest pain, no palpitations, no syncope. PULMONARY: No shortness of breath, no cough, GASTROINTESTINAL: No diarrhea, no nausea, no vomiting, no abdominal pain. NEUROLOGICAL: No headaches, no weakness, PHYSICAL EXAMINATION: GENERAL: The patient is alert , not in any acute distress. Well developed, well nourished. HEENT: Pupils are round and equally reacting to light. EOMI. No scleral icterus. No conjunctival pallor. Normocephalic, atraumatic. No pharyngeal erythema. No thyromegaly. CARDIOVASCULAR: S1 and S2 present. No murmurs, rubs, or gallops. PULMONARY: Chest is clear to auscultation, no wheezing or crackles. ABDOMEN: Soft, nontender, nondistended, normoactive bowel sounds. No palpable organomegaly. MUSCULOSKELETAL: No joint swelling or deformity. EXTREMITIES: No cyanosis, clubbing, or pedal edema. NEUROLOGICAL: Alert, moving all extremities SKIN: No rashes. Assessment and plan Urinary tract infection * Acute metabolic encephalopathy * Acute stroke * Acute delirium * Paroxysmal A. fib * History of COPD with chronic hypoxic respiratory failure * History of seizure disorder * History of DVT * Dyslipidemia * In regards to urinary tract infection, continue patient on IV Rocephin day , appropriately resuscitated with fluids * In regards to acute encephalopathy CT head negative, neurology consulted, EEG negative for any seizure-like activity. MRI brain done showed acute/subacute foci of ischemia within the peripheral right parietal, temporal and occipital lobes. Neurology following. Cardiology following for paroxysmal A. fib, echo pending PT and OT consulted * In regards to history of seizure continue Keppra * In regards to history of COPD, and chronic hypoxic respiratory failure patient is supposed to wear 2-3 L of oxygen at home patient appears at baseline * In regards to history of DVT continue Eliquis * Continue to follow up on vitals, CBC basic metabolic panel * Pulmonology and neurology are following Labs and medication were reviewed.. Continue same treatment. Continue with symptomatic treatment. Resume home medication. Monitor labs and vitals. DVT and GI prophylaxis. Further recommendations as per clinical course of the patient Dictation was produced using [employer] dictation software. please excuse any g rammatical, word or spelling errors. Objective - Vital Signs Vital signs: Vital Signs Temp 98.1 F 12/25/22 12:06 Pulse 69 12/25/22 12:06 Resp 17 12/25/22 12:06 BP 163/75 12/25/22 12:06 Pulse Ox 97 12/25/22 12:06 FiO2 Intake & Output 12/24/22 12/25/22 12/25/22 18:59 06:59 18:59 Intake Total 120 Balance 120 Weight 69.5 kg Intake: Intake, IV Titration 120 Amount Sodium Chloride 0.9% 1, 120 000 ml @ 20 mls/hr IV . Q24H [facility] Rx#:[id number] Oral 0 Other: Voiding Method Diaper Incontinent # Voids 1 # Bowel Movements 1 - Labs CBC & Chem 7: 12/25/22 06:01 12/25/22 06:01 Labs: Abnormal Lab Results - Last 24 Hours (Table) 12/24/22 12/25/22 12/25/22 Range/Units 06:59 06:01 06:01 Hgb 11.5 L (12.0-15.0) d/dL MCHC 29.7 L (32.0-37.0) d/dL RDW 16.4 H (11.5-14.5) % MPV 9.4 L (9.5-12.2) FL Carbon Dioxide 36.8 H (21.6-31.8) mmol/L Calcium 8.4 L (8.7-10.3) mg/dL Total Bilirubin <0.2 L (0.3-1.2) mg/dL Total Protein 5.6 L (6.2-8.2) d/dL Albumin 3.6 L (3.8-4.9) d/dL Procalcitonin 0.77 H (0.02-0.09) ng/mL
--- NOTE | 2022-12-25 19:18 | CA ---
Transthoracic Echo Report Name: Kate Medrano Age: 87 Gender: F : 1935 Exam Date: 12/25/2022 12:07 Exam Location: [facility] Ht (in): 65 Wt (lb): 145 Ordering Physician: James Felder MD Attending/Referring Phys: Big Data Platform Architect Kain Damian Procedure CPT: Indications: stroke Cardiac Hx: Technical Quality: Fair Contrast 1: Total Dose (mL): Contrast 2: Total Dose (mL): MEASUREMENTS (Male / Female) Normal Values 2D ECHO LV Diastolic Diameter PLAX 3.5 cm 4.2 - 5.9 / 3.9 - 5.3 cm LV Systolic Diameter PLAX 2.1 cm IVS Diastolic Thickness 1.4 cm 0.6 - 1.0 / 0.6 - 0.9 cm LVPW Diastolic Thickness 1.1 cm 0.6 - 1.0 / 0.6 - 0.9 cm LV Relative Wall Thickness 0.7 RV Internal Dim ED PLAX 3.6 cm LVOT Diameter 1.9 cm Aortic Root Diameter 3.0 cm LA Systolic Diameter LX 1.7 cm 3.0 - 4.0 / 2.7 - 3.8 cm LV Diastolic Volume MOD BP 23.7 cm??? 67 - 155 / 56 - 104 cm??? LV Systolic Volume MOD BP 11.4 cm??? 22 - 58 / 19 - 49 cm??? LV Ejection Fraction MOD BP 51.9 % >= 55 % LV Cardiac Index MOD BP 520.9 cm???/min???m??? LV Diastolic Volume MOD 4C 26.2 cm??? LV Systolic Volume MOD 4C 12.9 cm??? LV Ejection Fraction MOD 4C 50.8 % LV Cardiac Index MOD 4C 564.9 cm???/min???m??? LV Diastolic Length 4C 6.2 cm LV Systolic Length 4C 5.8 cm LV Diastolic Volume MOD 2C 21.0 cm??? LV Systolic Volume MOD 2C 9.6 cm??? LV Ejection Fraction MOD 2C 54.2 % LV Cardiac Index MOD 2C 483.7 cm???/min???m??? LV Diastolic Length 2C 6.3 cm LV Systolic Length 2C 5.5 cm LA Volume 32.6 cm??? 18 - 58 / 22 - 52 cm??? LA Volume Index 18.7 cm???/m??? 16 - 28 cm???/m??? Ascending Aorta Diameter 2.4 cm DOPPLER AV Peak Velocity 149.7 cm/s AV Peak Gradient 9.0 mmHg LVOT Peak Velocity 95.9 cm/s LVOT Peak Gradient 3.7 mmHg LVOT Velocity Time Integral 21.6 cm LVOT Stroke Volume 61.1 cm??? LVOT Stroke Volume Index 35.4 ml/m??? LVOT Cardiac Index 2591.6 cm???/min???m??? AV Area Cont Eq pk 1.8 cm??? MV Peak Velocity 101.5 cm/s MV Peak Gradient 4.1 mmHg MV Mean Velocity 49.2 cm/s MV Mean Gradient 1.2 mmHg MV Velocity Time Integral 26.7 cm Mitral E Point Velocity 50.3 cm/s Mitral A Point Velocity 92.3 cm/s Mitral E to A Ratio 0.5 MV Deceleration Time 340.4 ms MV E' Velocity 8.3 cm/s Mitral E to MV E' Ratio 6.1 TR Peak Velocity 323.3 cm/s TR Peak Gradient 41.8 mmHg Right Ventricular Systolic Press 46.8 mmHg PV Peak Velocity 82.9 cm/s PV Peak Gradient 2.7 mmHg FINDINGS Left Ventricle Normal LVsize. Moderate concentric LVH.left ventricular ejection fraction is estimated at 55-60 %.normal left ventricular wall motion. Right Ventricle Mildly dilated right ventricle. RVSP= 46.8mmHg. Right Atrium Normal right atrial size. Left Atrium Normal left atrial size. Mitral Valve Structurally normal mitral valve.trace to mild mitral regurgitation. Aortic Valve Trileaflet aortic valve. No aortic valve stenosis or regurgitation. Tricuspid Valve Structurally normal tricuspid valve. Mild TR. Pulmonic Valve Pulmonic valve not well visualized. Mild PI. Pericardium Normal pericardium. Aorta Normal size aortic root and proximal ascending aorta. CONCLUSIONS 1. Normal left ventricle size and systolic function with moderate LVH 2. Trace to Mild mitral regurgitation 3. Mild tricuspid regurgitation with mild pulmonary hypertension Previewed by: Dr. Kobi Rose MD (Electronically Signed) Final Date: 25 December 2022 19:17
[2022-12-25] MEDS: MELATONIN 1 MG TAB PO SCH (20:17)
[2022-12-25] MEDS: QUEtiapine 25 MG TAB PO SCH (20:17)
[2022-12-26] MEDS: FERROUS SULFATE 325 MG TAB PO SCH (08:11)
[2022-12-26] MEDS: DULoxetine HCL 30 MG CAPSULE.DR PO SCH (08:11)
[2022-12-26] MEDS: APIXABAN 2.5 MG TABLET PO SCH ×2 (08:11→19:13)
[2022-12-26] MEDS: PRAVASTATIN SODIUM 40 MG TAB PO SCH (08:11)
[2022-12-26] MEDS: CHOLECALCIFEROL 25 MCG (1000 IU) TABLET PO SCH (08:11)
[2022-12-26] MEDS: PANTOPRAZOLE 40 MG TABLET PO SCH (08:11)
[2022-12-26] MEDS: ASCORBIC ACID 500 MG TAB PO SCH (08:11)
[2022-12-26] MEDS: ISOSORBIDE MONONITRATE ER 30 MG TAB.ER.24H PO SCH (08:11)
[2022-12-26] MEDS: ASPIRIN 81 MG PO SCH (08:11)
[2022-12-26] MEDS: levETIRAcetam 500 MG TAB PO SCH ×2 (08:11→20:20)
[2022-12-26] MEDS: FUROSEMIDE 20 MG TAB PO SCH (08:11)
[2022-12-26] MEDS: SODIUM CHLORIDE 0.9% 1,000 ML IV SCH (08:12)
--- NOTE | 2022-12-26 10:29 | CT ---
EXAMINATION TYPE: CT brain wo con DATE OF EXAM: 12/26/2022 COMPARISON: 12/18/2022 INDICATION: fall, no loc, hematoma to right forehead DLP: 974.2 mGycm, Automated exposure control for dose reduction was used. CONTRAST: None CT of the brain is performed utilizing 3 mm thick sections through the posterior fossa and 3 mm thick sections through the remaining calvarium. Study is performed within 24 hours of arrival to the hosp ital. No abnormal hyperdensity is present to suggest an acute intracranial hemorrhage. No mass lesion is evident. No acute infarcts are evident. There is chronic hypodensity through the right frontal region compatib le with ischemic change or prior subcortical infarct. Soft tissue swelling is over the right frontal temporal region. Chronic appearing periventricular white matter hypodensity is present, likely on the basis of chronic white matter ischemic changes. There is likely an old lacunar infarct within the left cerebellum. Ventricles and sulci are appropriate for the patient age. Paranasal sinuses and mastoid air cells within the [id number] are clear. No acute fractures are id entified. IMPRESSION: 1. Old ischemic changes right frontal region left superior cerebellum, stable from comparison. 2. Milder periventricular white matter hypodensity likely on the basis of chronic white matter ischem ic changes. 3. Superficial soft tissue swelling right frontal temporal region. No underlying fracture evident. 4. No acute intracranial process. Follow-up MRI can be performed as clinically indicated
--- NOTE | 2022-12-26 13:09 | P.PN ---
Subjective Progress Note Date: 12/26/22 87-year-old patient with past medical history significant for CVA, hyperlipidemia, hypertension seizure disorder history of DVT or to the emergency department by family secondary to increased confusion. Per chart review patient has not slept in 3 days and was hallucinating and was brought to the ED for f urther evaluation patient had similar presentation in the past and was seen by neurology in June 2022 for concern for hand tremors and suspicion for focal seizure. * Workup initiated in ER included CBC which showed normal WC count normal hemoglobin and platelet count INR within normal limits * Serum chemistry showed sodium of 140 potassium 4.6, Kasia 33 BUN 20 creatinine 0.76 AST of 38 ALT of 15 troponin within normal limits * Urinalysis obtained showed WBC bacteria excessive squamous epithelial cells appeared urinalysis is ordered * Patient had urine toxicology done which was positive for opiates CT head obtained in ED was negative * X-ray shows subtle opacity however no suspicion for pneumonia at this point normal white cell count * EKG obtained in ER showed sinus rhythm * Patient is a poor historian historian, No family at bedside during my eval, Chart reviewed in History taking * 12/19/22: Patient seen and evaluated bedside, patient alert and oriented to person only, mentation has improved slightly. Blood work reviewed CBC within normal limits serum chemistry shows potassium of 5.4 which will be repeated. Patient remains afebrile, continue IV Rocephin home medications reviewed and reconciled * 12/20/22: Patient seen and evaluated bedside. Patient was noted to be alert and oriented 2. Blood pressure is stable, CRP elevated at 6.4 BNP 250 WBC 11.9 * 12/21/22: Patient evaluated bedside, patient was delirious overnight, had an episode of fall did not hit her head. Per nursing staff mentation slightly better. On my assessment patient is alert to person and situation. Patient is having significant sundowning we will initiate Seroquel tonight as well. Serum chemistry within normal limits CBC essentially normal as well venous blood gas obtained showed pCO2 of 51 pH of 7.34. Reviewed by pulmonary medicine as well etiology for delirium likely secondary to UTI. Patient will likely need to be discharged to rehab facility once mentation improves 12/22. Patient seen and examined. Labs were done this morning showed WBC 6.6, hemoglobin 11.1, sodium 142, potassium 4.3, BUN 11.5, creatinine 0.8. Vital signs temperature 99.7, heart rate 64, respirations 16, blood pressure 161/69. EeG done does not show any seizure-like activity. MRI brain pending 12/23. Patient seen and examined. Son at the bedside. MRI brain done showed acute/subacute foci of ischemia within the peripheral right parietal, temporal and occipital lobes. Mental status is improving. No acute issues overnight 12/24. Patient seen and examined. Lethargic, answering questions. 12/25. Patient seen and examined. Laying comfortably in the bed. Answers questions but responses delayed. 12/26. Patient seen and examined. 2-D echo done showed normal LVEF, trace to mild mitral regurg, mild tricuspid regurg and mild pulmonary hypertension. Patient had a fall this morning, CT head was done negative for any acute bleed, showed superficial soft tissue swelling over the right frontal temporal region REVIEW OF SYSTEMS: CONSTITUTIONAL: No fever, no malaise,. CARDIOVASCULAR: No chest pain, no palpitations, no syncope. PULMONARY: No shortness of breath, no cough, GASTROINTESTINAL: No diarrhea, no nausea, no vomiting, no abdominal pain. NEUROLOGICAL: No headaches, no weakness, PHYSICAL EXAMINATION: GENERAL: The patient is alert , not in any acute distress. Well developed, well nourished. HEENT: Pupils are round and equally reacting to light. EOMI. No scleral icterus. No conjunctival pallor. Normocephalic, atraumatic. No pharyngeal erythema. No thyromegaly. CARDIOVASCULAR: S1 and S2 present. No murmurs, rubs, or gallops. PULMONARY: Chest is clear to auscultation, no wheezing or crackles. ABDOMEN: Soft, nontender, nondistended, normoactive bowel sounds. No palpable organomegaly. MUSCULOSKELETAL: No joint swelling or deformity. EXTREMITIES: No cyanosis, clubbing, or pedal edema. NEUROLOGICAL: Alert, moving all extremities SKIN: No rashes. Assessment and plan Urinary tract infection * Acute metabolic encephalopathy * Acute stroke * Acute delirium * Paroxysmal A. fib * History of COPD with chronic hypoxic respiratory failure * History of seizure disorder * History of DVT * Dyslipidemia * In regards to urinary tract infection, completed course of antibiotic. * In regards to acute encephalopathy CT head negative, neurology consulted, EEG negative for any seizure-like activity. MRI brain done showed acute/subacute foci of ischemia within the peripheral right parietal, temporal and occipital lobes. Neurology following. Cardiology following for paroxysmal A. fib, echo results noted, CT head done on 12/26 showed negative for any acute bleed, showed superficial soft tissue swelling over the right frontal temporal region PT and OT recommended rehab * In regards to history of seizure continue Keppra * In regards to history of COPD, and chronic hypoxic respiratory failure patient is supposed to wear 2-3 L of oxygen at home patient appears at baseline * In regards to history of DVT continue Eliquis * Continue to follow up on vitals, CBC basic metabolic panel * Pulmonology and neurology are following Labs and medication were reviewed.. Continue same treatment. Continue with symptomatic treatment. Resume home medication. Monitor labs and vitals. DVT and GI prophylaxis. Further recommendations as per clinical course of the patient Dictation was produced using [employer] dictation software. please excuse any grammatical, word or spelling errors. Objective - Vital Signs Vital signs: Vital Signs Temp 99.3 F 12/26/22 07:30 Pulse 84 12/26/22 07:30 Resp 18 12/26/22 07:30 BP 124/85 12/26/22 07:30 Pulse Ox 97 12/26/22 07:30 FiO2 Intake & Output 12/25/22 12/26/22 12/26/22 18:59 06:59 18:59 Intake Total 590 Balance 590 Weight 69.5 kg 69.6 kg Intake: Oral 590 Other: Voiding Method Diaper Incontinent # Voids 1 2 2 - Labs CBC & Chem 7: 12/25/22 06:01 12/25/22 06:01
--- NOTE | 2022-12-26 14:01 | P.PN ---
Subjective Progress Note Date: 12/26/22 History of present illness: Patient is a pleasant 87-year-old female with significant past medical history of stroke, questionable seizures, bradycardia, atrial fibrillation, rate carotid endarterectomy, and hypertension who presented to the emergency department due to altered mental status. She was found to have a urinary tract infection. Cardiology was consulted due to recurrent CVA and consideration for changing anticoagulation. MRI brain showed acute/subacute foci of ischemia within the peripheral right parietal, temporal and occipital lobes. She had a carotid ultrasound that shows significant carotid stenosis and bilateral ICAs. LDL is 51, BNP 660, creatinine 0.8. EKG shows sinus rhythm with first-degree AV block, nonspecific T-wave abnormality. Senna bedside reports that patient still has some confusion but overall her mentation has improved greatly. Patient reports feeling exhausted. She denies any chest pain or pressure. She denies any shortness of breath, dizziness, passing out. 12/24/2022 Patient with some confusion. No chest pain or shortness of breath. ECHO is pending. 12/25 The patient is seen today in follow-up. She denies any chest pain or shortness of breath. In general she feels well. We are waiting for echocardiogram to be obtained and reported. Blood pressure readings are elevated 168/83, heart rate in the 80s and 90s, pulse ox 100% on 2 L nasal cannula, afebrile. Repeat blood work: Hemoglobin 11.5. Creatinine 0.7. 12/26 Patient states that she is feeling a little bit better today. She denies shortness of breath no chest pain. Blood pressure readings are elevated 170/76, heart rate in the 80s, pulse ox 99% on 3 L nasal cannula. Patient remains confused. PHYSICAL EXAMINATION: This is a 87-year-old female in no apparent distress at the time of my examination. HEENT: Head is atraumatic, normocephalic. Pupils are equal, round. Sclerae anicteric. Conjunctivae are clear. Mucous membranes of the mouth are moist. Neck is supple. Left carotid bruit is heard. CHEST EXAMINATION: Lungs are clear to auscultation. No chest wall tenderness is noted on palpation or with deep breathing. HEART EXAMINATION: Heart regular rate and rhythm. S1, S2 heard. No murmurs, gallops or rub. ABDOMEN: Soft, nontender. Bowel sounds are heard. EXTREMITIES: 2+ peripheral pulses with no evidence of peripheral edema and no calf tenderness noted. NEUROLOGIC EXAMINATION: Patient is awake, alert and oriented to person. IMPRESSION AND PLAN: Paroxysmal atrial fibrillation CVA Significant carotid stenosis bilaterally per Doppler ultrasound Hypertension Altered mental status Urinary tract infection PLAN: Add losartan 50 mg daily Patient is cleared for discharge from cardiology. Recommend continuing current anticoagulation at this time. Cardiology will sign off this case and follow on an as-needed basis. Please reconsult for any new concerns. Nurse practitioner note has been reviewed, I agree with the documented findings and plan of care. Patient was seen and examined. Objective - Vital Signs Vital signs: Vital Signs Temp 99.3 F 12/26/22 07:30 Pulse 84 12/26/22 07:30 Resp 18 12/26/22 07:30 BP 124/85 12/26/22 07:30 Pulse Ox 97 12/26/22 07:30 FiO2 Intake & Output 12/25/22 12/26/22 12/26/22 18:59 06:59 18:59 Intake Total 590 Balance 590 Weight 69.5 kg 69.6 kg Intake: Oral 590 Other: Voiding Method Diaper Incontinent # Voids 1 2 2 - Labs CBC & Chem 7: 12/25/22 06:01 12/25/22 06:01 Labs: Abnormal Lab Results - Last 24 Hours (Table) 12/25/22 12/25/22 Range/Units 06:01 06:01 Hgb 11.5 L (12.0-15.0) d/dL MCHC 29.7 L (32.0-37.0) d/dL RDW 16.4 H (11.5-14.5) % MPV 9.4 L (9.5-12.2) FL Carbon Dioxide 36.8 H (21.6-31.8) mmol/L Calcium 8.4 L (8.7-10.3) mg/dL Total Bilirubin <0.2 L (0.3-1.2) mg/dL Total Protein 5.6 L (6.2-8.2) d/dL Albumin 3.6 L (3.8-4.9) d/dL
[2022-12-26] MEDS: LOSARTAN 50 MG TAB PO SCH (14:43)
[2022-12-26] MEDS: ACETAMINOPHEN TAB 325 MG TAB PO PRN (14:44)
[2022-12-26] MEDS: hydrALAZINE HCL 20 MG/ML 1 ML VIAL IVP PRN (20:20)
[2022-12-26] MEDS: QUEtiapine 25 MG TAB PO SCH (20:20)
[2022-12-26] MEDS: MELATONIN 1 MG TAB PO SCH (20:20)
[2022-12-27] MEDS: LOSARTAN 50 MG TAB PO SCH (09:47)
[2022-12-27] MEDS: CHOLECALCIFEROL 25 MCG (1000 IU) TABLET PO SCH (09:47)
[2022-12-27] MEDS: FUROSEMIDE 20 MG TAB PO SCH (09:47)
[2022-12-27] MEDS: FERROUS SULFATE 325 MG TAB PO SCH (09:47)
[2022-12-27] MEDS: DULoxetine HCL 30 MG CAPSULE.DR PO SCH (09:47)
[2022-12-27] MEDS: PANTOPRAZOLE 40 MG TABLET PO SCH (09:48)
[2022-12-27] MEDS: levETIRAcetam 500 MG TAB PO SCH (09:48)
[2022-12-27] MEDS: ASCORBIC ACID 500 MG TAB PO SCH (09:48)
[2022-12-27] MEDS: ISOSORBIDE MONONITRATE ER 30 MG TAB.ER.24H PO SCH (09:48)
[2022-12-27] MEDS: ASPIRIN 81 MG PO SCH (09:48)
[2022-12-27] MEDS: PRAVASTATIN SODIUM 40 MG TAB PO SCH (09:50)
--- NOTE | 2022-12-27 10:24 | CT ---
EXAMINATION TYPE: CT brain wo con DATE OF EXAM: 12/27/2022 COMPARISON: 12/26/2022 HISTORY: fall, pain CT DLP: 1049.7 mGycm Automated exposure control for dose reduction was used. FINDINGS: There is a large subcutaneous hematoma overlying the right frontal bone. There is no evidence of calv arial fracture. No acute intracranial hemorrhage or mass effect. There is an area of encephalomalacia and remote isch emia involving the right frontal lobe intracranial atherosclerotic changes. There is calcification in volving the cavernous segment of the bilateral ICA. No midline shift. Hypoattenuation in the white matter is compatible with remote microvascular ischemi a and there is moderate generalized degenerative change. Craniocervical junction is maintained. IMPRESSION: 1. There is slight interval reduction in the size of the large right frontal subcutaneous soft tissue hematoma relative to prior exam.
[2022-12-27] MEDS: APIXABAN 2.5 MG TABLET PO SCH ×3 (10:57→20:17)
--- NOTE | 2022-12-27 12:45 | P.PN ---
Subjective Progress Note Date: 12/26/22 12/26/2022: Patient was seen for a follow-up. Patient's son Mr. Mccarthy was also present today. He mentions the patient lives at her home with her son, who is present 8 hours a day. She takes her medications regularly. Does not miss the dose. He states that on Sunday12/18/2022, patient was sitting in her left arm became weak. She was sitting in the chair and her left arm was dropping down the side of the chair and she was not able to lift it up. He had an MRI of the brain, which confirmed an acute stroke. It is uncertain as to the reason patient with CVA despite being on Eliquis. Today patient was sitting in the chair and apparently tried to stand up, and fell face forward producing a big bump on the right forehead. Also right shoulder is hurting. Patient had a CT head, which did not reveal any acute intracranial bleed. It revealed old ischemic changes right frontal region and left superior cerebellum, stable from comparison. Mild periventricular white matter hypodensity likely on the basis of chronic white matter ischemic changes. Superficial soft tissue swelling right frontal temporal region. No underlying fracture evident. No acute intracranial process. Patient's son was concerned as to the reason why Keppra was started. He states that patient never had any history of seizures. On review of records, it appears that patient has been seen by neurology service 3 times. The first time I saw patient for delirium, which was felt to be related to medications. On 07/21/2022, patient was admitted with left hand tremor with episode of aphasia. EKG was normal. Dr. Felder saw the patient. Suspected focal seizures and started Keppra. Patient has been on Keppra 500 mg twice a day since then. Patient's son states that she never had a seizure, and wants her to be off Keppra. 12/23/2022: Patient was initially seen by Dr. James Felder. Please refer to his note for details. Patient is a 87-year-old female who presents with confusion and had a UTI. Last Sunday, she had left upper extremity weakness. MRI of the brain was done and showed acute stroke. Patient is currently on Eliquis 2.5 mg twice a day and aspirin 81 mg. Cardiology has been consulted. Patient at present is laying comfortably in the bed. Offers no complaints. Some of the workup during his hospital visit consisted of: Urinalysis seems possible suggestive of underlying acute UTI. Urine drug screen is positive for opiates. Otherwise rest is nondetected and serum alcohol was less than 10. CT of the head is reported as no acute intracranial process. I personally reviewed this study head and I agree there is no acute subacute ischemia. The patient has similar encephalomalacia in the left superior cerebellar as well as the right frontal. Routine EEG is abnormal. The background slowing is suggestive of mild encephalopathy. Otherwise there is no focal slowing, epileptiform discharges or seizure on the EEG Objective - Vital Signs Vital signs: Vital Signs Temp 99.2 F 12/27/22 08:00 Pulse 79 12/27/22 08:00 Resp 18 12/27/22 08:00 BP 159/89 12/27/22 08:00 Pulse Ox 96 12/27/22 08:00 FiO2 Intake & Output 12/26/22 12/27/22 12/27/22 18:59 06:59 18:59 Weight 67.5 kg Other: Voiding Method Diaper Incontinent # Voids 2 1 - Exam Patient is an elderly Afro-Russian female, in no acute distress. She is alert and awake. Patient knows it is November and the year is and that she is in [facility]. She knows her name and her age of 87 years. Speech and language functions are normal. Patient can name and repeat very well. On cranial nerve examination pupils are equal, round and reacting, visual everett are full with no neglect. Extraocular muscles are intact. Face is symmetric. Tongue protrudes the midline. Patient has a big bump over the right forehead region. On muscle strength testing, there is no pronator drift and the strength is normal in the biceps, triceps and performance solutions specialist. Deltoid appears weak 4/5-, probably from arthritis. Ankle dorsiflexion are equal 5/5, toe extension 2/5. Patient does not give good effort for hip flexion, but is equal with fairly good resistance. Sensory touch is equal. Patient appears to have mild ataxia for left upper extremity. - Labs CBC & Chem 7: 12/25/22 06:01 12/25/22 06:01 Assessment and Plan Assessment: This is an 87-year-old woman who presented emergency department because of altered mental status. She was found to have acute urinary tract infection. Her mentation is improved. Acute to subacute foci of ischemia within the peripheral right parietal, temporal no occipital lobes. Status post fall this morning, with right frontal scalp hematoma. No intracranial bleed. Altered mental status seems due to underlying acute UTI and her mentation is improved. Prior episode of left hand tremor with episode of aphasia in June [address] Felder has felt possible seizure especially with the old stroke which can be the culprit of seizure. She had an EEG at that time which was normal and she was placed on Keppra. Patient never had a overt clinical seizure. 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 History of bradycardia History of atrial fibrillation on eliquis Chronic back pain History of breast cancer Plan: Patient never had a clear-cut seizure. Patient's son wants to stop Keppra. We will decrease it by 500 mg daily for 5 days until off. Routine EEG: Mild encephalopathy. NO seizure or discharges. MRI brain with and without contrast revealed acute/subacute foci of ischemia within the peripheral right parietal, temporal and occipital lobes. No abnormal contrast enhancement. Remote ischemic injuries to the right frontal, right parietal occipital, right thalamus and left cerebellum. Nonspecific white matter changes, likely related to chronic small vessel ischemic disease. I personally reviewed MRI agree with the findings. Spoke to patient's son, who mentions that patient has been compliant with eliquis 2.5mg bid and taking ASA 81mg. 2D echo revealed normal left ventricular size and systolic function with EF 55- 60%. Moderate LVH. Trace to mild MR. Mild TR. Normal left atrial size. Carotid duplex revealed significant stenosis in the bilateral ICA is taught present. Advise repeat CTA or MRA of the neck to further evaluate. Antegrade flow in both vertebral arteries. Patient had a CTA head and neck done on 07/20/2022 which reported mild stenosis bilateral carotid bifurcations. This is approaching 50% on the left. No acute changes [place]. Patient had a carotid Doppler also performed recently on 05/15/2022, which revealed elevated ICA peak systolic velocities likely on the basis of turbulent flow as the end-diastolic velocities and ICA/CCA ratios fall within normal limits. I do not believe patient has significant carotid stenosis. We will consult vascular surgery. Lipid panel with cholesterol 101, LDL 51, HDL 37, triglycerides 59. Continue pravastatin 40 mg daily. Hemoglobin A1c 5.9 on 07/20/2022. Patient has ischemic stroke despite being on Eliquis 2.5 mg twice a day and aspirin 81 mg daily. Cardiology on board. May need FRANCINE. We'll defer the rest of the medical management to the primary team Discussed in detail with patient's son, nursing staff and primary team.
--- NOTE | 2022-12-27 13:30 | P.PN ---
Subjective Progress Note Date: 12/27/22 87-year-old patient with past medical history significant for CVA, hyperlipidemia, hypertension seizure disorder history of DVT or to the emergency department by family secondary to increased confusion. Per chart review patient has not slept in 3 days and was hallucinating and was brought to the ED for f urther evaluation patient had similar presentation in the past and was seen by neurology in June 2022 for concern for hand tremors and suspicion for focal seizure. * Workup initiated in ER included CBC which showed normal WC count normal hemoglobin and platelet count INR within normal limits * Serum chemistry showed sodium of 140 potassium 4.6, Kasia 33 BUN 20 creatinine 0.76 AST of 38 ALT of 15 troponin within normal limits * Urinalysis obtained showed WBC bacteria excessive squamous epithelial cells appeared urinalysis is ordered * Patient had urine toxicology done which was positive for opiates CT head obtained in ED was negative * X-ray shows subtle opacity however no suspicion for pneumonia at this point normal white cell count * EKG obtained in ER showed sinus rhythm * Patient is a poor historian historian, No family at bedside during my eval, Chart reviewed in History taking * 12/19/22: Patient seen and evaluated bedside, patient alert and oriented to person only, mentation has improved slightly. Blood work reviewed CBC within normal limits serum chemistry shows potassium of 5.4 which will be repeated. Patient remains afebrile, continue IV Rocephin home medications reviewed and reconciled * 12/20/22: Patient seen and evaluated bedside. Patient was noted to be alert and oriented 2. Blood pressure is stable, CRP elevated at 6.4 BNP 250 WBC 11.9 * 12/21/22: Patient evaluated bedside, patient was delirious overnight, had an episode of fall did not hit her head. Per nursing staff mentation slightly better. On my assessment patient is alert to person and situation. Patient is having significant sundowning we will initiate Seroquel tonight as well. Serum chemistry within normal limits CBC essentially normal as well venous blood gas obtained showed pCO2 of 51 pH of 7.34. Reviewed by pulmonary medicine as well etiology for delirium likely secondary to UTI. Patient will likely need to be discharged to rehab facility once mentation improves 12/22. Patient seen and examined. Labs were done this morning showed WBC 6.6, hemoglobin 11.1, sodium 142, potassium 4.3, BUN 11.5, creatinine 0.8. Vital signs temperature 99.7, heart rate 64, respirations 16, blood pressure 161/69. EeG done does not show any seizure-like activity. MRI brain pending 12/23. Patient seen and examined. Son at the bedside. MRI brain done showed acute/subacute foci of ischemia within the peripheral right parietal, temporal and occipital lobes. Mental status is improving. No acute issues overnight 12/24. Patient seen and examined. Lethargic, answering questions. 12/25. Patient seen and examined. Laying comfortably in the bed. Answers questions but responses delayed. 12/26. Patient seen and examined. 2-D echo done showed normal LVEF, trace to mild mitral regurg, mild tricuspid regurg and mild pulmonary hypertension. Patient had a fall this morning, CT head was done negative for any acute bleed, showed superficial soft tissue swelling over the right frontal temporal region 12/27. Patient seen and examined. Son at the bedside. Patient has significant bruising of the right side of her face. Neurology recommended decreasing her Keppra to 500 mg once daily and then stopping it completely after 5 days. Vital signs stable REVIEW OF SYSTEMS: CONSTITUTIONAL: No fever, no malaise,. CARDIOVASCULAR: No chest pain, no palpitations, no syncope. PULMONARY: No shortness of breath, no cough, GASTROINTESTINAL: No diarrhea, no nausea, no vomiting, no abdominal pain. NEUROLOGICAL: No headaches, no weakness, PHYSICAL EXAMINATION: GENERAL: The patient is alert , not in any acute distress. Bruising of right side of face and around the right eye HEENT: Pupils are round and equally reacting to light. EOMI. No scleral icterus. No conjunctival pallor. Normocephalic, atraumatic. No pharyngeal erythema. No thyromegaly. CARDIOVASCULAR: S1 and S2 present. No murmurs, rubs, or gallops. PULMONARY: Chest is clear to auscultation, no wheezing or crackles. ABDOMEN: Soft, nontender, nondistended, normoactive bowel sounds. No palpable organomegaly. MUSCULOSKELETAL: No joint swelling or deformity. EXTREMITIES: No cyanosis, clubbing, or pedal edema. NEUROLOGICAL: Alert, moving all extremities SKIN: No rashes. Assessment and plan Urinary tract infection * Acute metabolic encephalopathy * Acute stroke * Acute delirium * Paroxysmal A. fib * History of COPD with chronic hypoxic respiratory failure * History of seizure disorder * History of DVT * Dyslipidemia * In regards to urinary tract infection, completed course of antibiotic. * In regards to acute encephalopathy CT head negative, neurology consulted, EEG negative for any seizure-like activity. MRI brain done showed acute/subacute foci of ischemia within the peripheral right parietal, temporal and occipital lobes. Neurology following. Cardiology following for paroxysmal A. fib, echo results noted, CT head done on 12/26 showed negative for any acute bleed, showed superficial soft tissue swelling over the right frontal temporal region PT and OT recommended rehab * In regards to history of seizure , neurology reviewed all previous records, no evidence of any seizures in the past, recommended to decrease Keppra to 500 mg and stop it after 5 days * In regards to history of COPD, and chronic hypoxic respiratory failure patient is supposed to wear 2-3 L of oxygen at home patient appears at baseline * In regards to history of DVT continue Eliquis * Continue to follow up on vitals, CBC basic metabolic panel * neurology are following Labs and medication were reviewed.. Continue same treatment. Continue with symptomatic treatment. Resume home medication. Monitor labs and vitals. DVT and GI prophylaxis. Further recommendations as per clinical course of the patient Dictation was produced using [employer] dictation software. please excuse any grammatical, word or spelling errors. Objective - Vital Signs Vital signs: Vital Signs Temp 98.3 F 12/27/22 12:55 Pulse 85 12/27/22 12:55 Resp 18 12/27/22 12:55 BP 142/84 12/27/22 12:55 Pulse Ox 98 12/27/22 12:55 FiO2 Intake & Output 12/26/22 12/27/22 12/27/22 18:59 06:59 18:59 Weight 67.5 kg Other: Voiding Method Diaper Incontinent # Voids 2 1 - Labs CBC & Chem 7: 12/25/22 06:01 12/25/22 06:01
--- NOTE | 2022-12-27 15:26 | P.GSCN ---
History of Present Illness Consult date: 12/27/22 Reason for Consult: Carotid stenosis Requesting physician: Osbaldo Hart History of present illness: Patient is a 87 year old with multiple comorbidities. He has a history of coronary artery disease, atrial fibrillation on Eliquis, heart failure, COPD, CVA/TIA, DVT, hyperlipidemia, hypertension, breast cancer, history of left subclavian artery bypass and right carotid endarterectomy. Patient presented to the emergency department on 12/18/2022 for confusion and weakness. It was reported apparently the patient was having hallucinations and had not slept in 3 days prior to coming in. Her son is at the bedside and states that Sunday that she came in she had left-sided weakness that her left arm was completely flaccid. 5 Day it had improved. On admission she had a CT of the head which was normal. Neurology was consulted and has been following patient for altered mental status changes. She underwent EGD showing background slowing suggestive of mild encephalopathy but no focal slowing or lip deformed discharges or seizure noted on EEG. On 12/22/2022 she underwent MRI of the brain that reported acute/subacute foci of ischemia within the peripheral right parietal, temporal and occipital lobes. No abnormal contrast enhancement. Remote ischemic injuries to the right frontal, right parietal occipital, right thalamus and left cerebellum. Nonspecific white matter changes likely related to chronic small vessel ischemic disease redemonstrated. She then underwent carotid duplex that reported significant stenosis in bilateral internal carotid arteries Present. However neurology felt that patient did not have any significant stenosis. Cardiology was consulted for atrial fibrillation and recommend continuing current and anticoagulation at this time. Patient underwent echocardiogram reporting normal left and cervical size and systolic function with moderate LVH. Trace to mild mitral regurgitation and mild tricuspid regurgitation with mild pulmonary hypertension. Apparently patient was going to be discharged home however sustained a fall. She had a CT of the brain that reported old ischemic changes right frontal region left superior cerebellum stable from comparison. Milder periventricular white matter hypodensity likely on the basis of chronic white matter changes superficial soft tissue swelling right frontal temporal region. No underlying fracture evident. No acute intracranial process follow-up MRI can be performed as indicated. Vascular surgery was consulted by neurology for carotid stenosis. Patient currently has no focal deficits. Left upper extremity weakness improved. She is currently sitting up in bed feeding herself. Review of Systems A 14 point review systems was completed all pertinent positives and negatives as stated in the HPI. 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,, emphysema; hypoglycemia, hx breast cancer, History of Any Multi-Drug Resistant Organisms: None Reported Past Surgical History: Back Surgery, Breast Surgery, Cholecystectomy, Heart Catheterization Additional Past Surgical History / Comment(s): L SUBCLAVIAN ARTERY BYPASS, Rt CAROTID ENDARTECTOMY, rt breast lumpectomy Past Anesthesia/Blood Transfusion Reactions: No Reported Reaction Additional Past Anesthesia/Blood Transfusion Reaction / Comm: PT RECIEVED BLOOD TRANSFUSION Past Psychological History: Anxiety Smoking Status: Former smoker Past Alcohol Use History: None Reported Past Drug Use History: None Reported - Past Family History Brother(s) Family Medical History: Cancer Sister(s) Family Medical History: Cancer Mother Family Medical History: Coronary Artery Disease (CAD) Additional Family Medical History / Comment(s): enlarged heart Father Family Medical History: Coronary Artery Disease (CAD), CVA/TIA Medications and Allergies Home Medications Medication Instructions Recorded Confirmed Type Pravastatin Sodium [Pravachol] 40 mg PO DAILY 08/04/13 12/18/22 History Ferrous Sulfate [Iron (65 MG 325 mg PO DAILY 02/05/17 12/18/22 History Elemental)] Pantoprazole [Protonix] 40 mg PO DAILY 04/11/18 12/18/22 History Albuterol Inhaler [Ventolin Hfa 2 puff INHALATION RT-Q6H PRN 04/29/22 12/18/22 History Inhaler] Apixaban [Eliquis] 2.5 mg PO BID 04/29/22 12/18/22 History DULoxetine HCL [Cymbalta] 30 mg PO DAILY 04/29/22 12/18/22 History Denosumab [Prolia] 60 mg SQ Q180D 04/29/22 12/18/22 History Furosemide [Lasix] 20 mg PO DAILY 04/29/22 12/18/22 History Isosorbide Mononitrate ER [Imdur] 30 mg PO DAILY 04/29/22 12/18/22 History Melatonin 1 mg PO HS 04/29/22 12/18/22 History Aspirin 81 mg PO DAILY 30 Days #30 tab 05/17/22 12/18/22 Rx Acetaminophen-Codeine 300-30mg 1 tab PO BID PRN 07/20/22 12/18/22 History [Tylenol w/codeine #3] Cholecalciferol [Vitamin D3 (25 25 mcg PO DAILY 09/30/22 12/18/22 History Mcg = 1000 Iu)] levETIRAcetam [Keppra] 500 mg PO Q12HR 09/30/22 12/18/22 History Ascorbic Acid [Vitamin C] 500 mg PO DAILY 10/27/22 12/18/22 History Allergies Allergy/AdvReac Type Severity Reaction Status Date / Time No Known Allergies Allergy Verified 12/18/22 09:25 Surgical - Exam Vital Signs Temp Pulse Resp BP Pulse Ox 97.6 F 93 18 149/82 95 12/18/22 06:02 12/18/22 06:02 12/18/22 06:02 12/18/22 06:02 12/18/22 06:02 General appearance: The patient is alert, oriented, appears in no acute distress. HET: Head is normocephalic. Right frontal hematoma. Pupils are equal and reactive. Neck: Supple. Heart: Regular. Lungs: Equal expansion, normal respiratory effort. Abdomen: Soft, nontender, nondistended. Extremities: Normal skin color and turgor. Neurological: No focal deficits. Bilateral upper and lower extremity tone and strength equal. Results - Labs 12/25/22 06:01 12/25/22 06:01 - Imaging Comments: See HPI for details Assessment and Plan Assessment: 1. Acute subacute foci of ischemia with an peripheral right parietal, temporal and occipital lobes 2. Carotid stenosis, with history of right carotid endarterectomy per chart 3. Atrial fibrillation on eliquis 4. History coronary artery disease 5. Hypertension 6. Hyperlipidemia Plan: 1. CTA head and neck ordered 2. Elbow discuss with cardiology if he can switch patient to Plavix from aspirin and continue Eliquis 3. Will discuss further with neurology CTA head and neck is resulted Long discussion had with son was at the bedside regarding patient's mother Kate. They do not want to have any surgical intervention, including carotid intervention. Preference is to maximize medical therapy. Also discussed with the patient's son with CODE STATUS which he will address further with his mother. Further recommendations forthcoming. Thank you for this consultation. The impression and plan of care has been dictated as directed. Dr. Jay I performed a history and examination of this patient, discussed the same with the dictator. I agree with the dictator's note ,documented as a scribe. Any additional findings or plans will be noted.
--- NOTE | 2022-12-27 15:46 | CT ---
EXAMINATION TYPE: CT angio head neck CT DLP: 299.4 mGycm, Automated exposure control for dose reduction was used. DATE OF EXAM: 12/27/2022 3:12 PM COMPARISON: 07/20/2022. CLINICAL INDICATION:Female, 87 years old with history of stroke; TECHNIQUE: Axially acquired helical CT angiogram of the head and neck was obtained with contrast. Axi al images are supplemented with 3D reconstructions [facility] NASCET criteria used. Contrast used:65 mL of Isovue 370 with IV Contrast, Oral contrast used: None. FINDINGS: CTA HEAD: No evidence of acute intracranial hemorrhage, mass effect, or midline shift. The ventricles, sulci, a nd cisterns are unremarkable. The visualized portions of the internal carotid arteries, middle cerebral arteries, anterior cerebral arteries, and posterior cerebral arteries are patent. Diminutive right A1 segment. Atherosclerosis o f the carotid siphons bilaterally. There is a diminutive right intracranial internal carotid artery. The basilar and vertebral arteries are patent. Right frontal scalp subcutaneous hematoma. No evidence of active extravasation. CTA NECK: Right Carotid System: Common carotid arteries patent. There is short segment of proximal internal carotid artery with great er than 90% stenosis versus occlusion with suspected backfilling. This segment is at least 4 mm in le ngth. Of the remainder of the internal carotid artery somewhat decreased in caliber. Series 15 image 28. There is also a beaded contour to the carotid bifurcation. Left Carotid System: The common carotid and external carotid arteries are patent. There is less than 70% stenosis at the p roximal internal carotid artery secondary to noncalcified plaque. The rest of the internal carotid ar kishore is patent. The vertebral arteries are patent. There is narrowing of the left vertebral artery at the level of C6 -C7 transverse foramen of at least 50% series 14 image 41. Two-vessel aortic arch. There is a blind-ending arterial vascular structure off the distal aortic arc h unclear whether this is a penetrating atherosclerotic ulcer versus postsurgical change given multip le surgical clips in the lower left neck. If this is postsurgical change in the graft is patent. Upper thorax: Moderate centrilobular emphysema changes. IMPRESSION: 1. Greater than 90% stenosis of the proximal right internal carotid artery which has worsened from p rior on 07/20/2022. Alternatively this may represent a short segment of occlusion with backfilling. Ri ght measures up to 4 mm in length. Similar at least 70% stenosis of the left proximal internal caroti d artery secondary to calcified plaque. 2. Beaded appearance of the right carotid bifurcation which could represent focal nodular hyperplasi a. Findings similar to prior on 07/20/2022. 3. Diminutive right internal carotid artery extending from area of suspected occlusion versus high-g rade stenosis into the termination into the [place]. 4. No evidence of dissection of the cervical internal carotid arteries or vertebral arteries 5. No evidence of intracranial high-grade stenosis or intracranial aneurysm. 6. There is a blind-ending arterial vascular structure off the distal aortic arch. Unclear whether t his is a penetrating atherosclerotic ulcer versus postsurgical change given multiple surgical clips i n the region. If this is postsurgical change in the graft is patent. This is stable from 07/20/2022. 7. Right frontal scalp hematoma without evidence of active extravasation. No evidence of fracture.
[2022-12-27] MEDS: ACETAMINOPHEN TAB 325 MG TAB PO PRN (19:35)
[2022-12-27] MEDS: SODIUM CHLORIDE 0.9% 1,000 ML IV SCH (20:14)
[2022-12-27] MEDS: MELATONIN 1 MG TAB PO SCH (20:17)
[2022-12-27] MEDS: QUEtiapine 25 MG TAB PO SCH (20:17)
[2022-12-28 08:27] VITALS: BP 136/75; PULSE 81; RESP 21; TEMP 98.8
[2022-12-28] MEDS: ASCORBIC ACID 500 MG TAB PO SCH (08:33)
[2022-12-28] MEDS: FERROUS SULFATE 325 MG TAB PO SCH (08:33)
[2022-12-28] MEDS: LOSARTAN 50 MG TAB PO SCH (08:33)
[2022-12-28] MEDS: FUROSEMIDE 20 MG TAB PO SCH (08:33)
[2022-12-28] MEDS: DULoxetine HCL 30 MG CAPSULE.DR PO SCH (08:33)
[2022-12-28] MEDS: CHOLECALCIFEROL 25 MCG (1000 IU) TABLET PO SCH (08:33)
[2022-12-28] MEDS: APIXABAN 2.5 MG TABLET PO SCH (08:33)
[2022-12-28] MEDS: PANTOPRAZOLE 40 MG TABLET PO SCH (08:33)
[2022-12-28] MEDS: PRAVASTATIN SODIUM 40 MG TAB PO SCH (08:34)
[2022-12-28] MEDS: ASPIRIN 81 MG PO SCH (08:34)
[2022-12-28] MEDS: ISOSORBIDE MONONITRATE ER 30 MG TAB.ER.24H PO SCH (08:34)
--- NOTE | 2022-12-28 12:29 | P.PN ---
Subjective Progress Note Date: 12/27/22 12/27/2022: Patient was seen for a follow-up. Patient's both sons were present today. Patient denies any new focal symptoms. She is laying comfortably in the bed, having her dinner. 12/26/2022: Patient was seen for a follow-up. Patient's son Mr. Mccarthy was also present today. He mentions the patient lives at her home with her son, who is present 8 hours a day. She takes her medications regularly. Does not miss the dose. He states that on Sunday12/18/2022, patient was sitting in her left arm became weak. She was sitting in the chair and her left arm was dropping down the side of the chair and she was not able to lift it up. He had an MRI of the brain, which confirmed an acute stroke. It is uncertain as to the reason patient with CVA despite being on Eliquis. Today patient was sitting in the chair and apparently tried to stand up, and fell face forward producing a big bump on the right forehead. Also right shoulder is hurting. Patient had a CT head, which did not reveal any acute intracranial bleed. It revealed old ischemic changes right frontal region and left superior cerebellum, stable from comparison. Mild periventricular white matter hypodensity likely on the basis of chronic white matter ischemic changes. Superficial soft tissue swelling right frontal temporal region. No underlying fracture evident. No acute intracranial process. Patient's son was concerned as to the reason why Keppra was started. He states that patient never had any history of seizures. On review of records, it appears that patient has been seen by neurology service 3 times. The first time I saw patient for delirium, which was felt to be related to medications. On 07/21/2022, patient was admitted with left hand tremor with episode of aphasia. EKG was normal. Dr. Felder saw the patient. Suspected focal seizures and started Keppra. Patient has been on Keppra 500 mg twice a day since then. Patient's son states that she never had a seizure, and wants her to be off Keppra. 12/23/2022: Patient was initially seen by Dr. James Felder. Please refer to his note for details. Patient is a 87-year-old female who presents with confusion and had a UTI. Last Sunday, she had left upper extremity weakness. MRI of the brain was done and showed acute stroke. Patient is currently on Eliquis 2.5 mg twice a day and aspirin 81 mg. Cardiology has been consulted. Patient at present is laying comfortably in the bed. Offers no complaints. Some of the workup during his hospital visit consisted of: Urinalysis seems possible suggestive of underlying acute UTI. Urine drug screen is positive for opiates. Otherwise rest is nondetected and serum alcohol was less than 10. CT of the head is reported as no acute intracranial process. I personally reviewed this study head and I agree there is no acute subacute ischemia. The patient has similar encephalomalacia in the left superior cerebellar as well as the right frontal. Routine EEG is abnormal. The background slowing is suggestive of mild e ncephalopathy. Otherwise there is no focal slowing, epileptiform discharges or seizure on the EEG Objective - Vital Signs Vital signs: Vital Signs Temp 98.3 F 12/27/22 12:55 Pulse 85 12/27/22 12:55 Resp 18 12/27/22 12:55 BP 142/84 12/27/22 12:55 Pulse Ox 98 12/27/22 12:55 FiO2 Intake & Output 12/26/22 12/27/22 12/27/22 18:59 06:59 18:59 Weight 67.5 kg Other: Voiding Method Diaper Incontinent # Voids 2 1 4 - Exam Patient is an elderly Afro-Yemeni female, in no acute distress. She is alert and awake. Patient knows it is November and the year is and that she is in [facility]. She knows her name and her age of 87 years. Speech and language functions are normal. Patient can name and repeat very well. On cranial nerve examination pupils are equal, round and reacting, visual everett are full with no neglect. Extraocular muscles are intact. Face is symmetric. Tongue protrudes the midline. Patient has a big bump over the right forehead region. On muscle strength testing, there is no pronator drift and the strength is normal in the biceps, triceps and senior energy analyst. Deltoid appears weak 4/5-, probably from arthritis. Ankle dorsiflexion are equal 5/5, toe extension 2/5. Patient does not give good effort for hip flexion, but is equal with fairly good resistance. Sensory touch is equal. Patient appears to have mild ataxia for left upper extremity. - Labs CBC & Chem 7: 12/25/22 06:01 12/25/22 06:01 Assessment and Plan Assessment: * Acute ischemic CVA within the peripheral right parietal, temporal and occipital lobes. * Bilateral ICA stenosis, greater than 90% stenosis proximal right ICA and alternatively this may represent a short segment of occlusion with backfilling. 70% stenosis left proximal ICA secondary to calcified plaque. * Acute UTI * Status post in-hospital fall 12/26/2022 with right frontal scalp hematoma. No intracranial process. * No history of seizures. Patient being weaned off Keppra. * History of old strokes in the right frontal/basal ganglia as well as left temporal cerebellar region. * History of bradycardia * History of atrial fibrillation on eliquis * Chronic back pain * History of breast cancer Plan: CTA of head and neck revealed greater than 90% stenosis of the proximal right ICA which has worsened from prior on 07/20/2022. Alternatively, this may represent a short segment of occlusion with backfilling. Right measures up to 4 mm in length. Similar at least 70% stenosis of the left proximal ICA secondary to calcified plaque. Beaded appearance of the right carotid bifurcation which could represent focal nodular hyperplasia. Diminutive right ICA extending from 80 of suspected occlusion versus high grade stenosis into the termination into the [place]. No evidence of dissection of the cervical ICA or vertebra l arteries. No aneurysm. Carotid duplex revealed significant stenosis in the bilateral ICA is taught present. Advise repeat CTA or MRA of the neck to further evaluate. Antegrade flow in both vertebral arteries. Patient had a CTA head and neck done on 07/20/2022 which reported mild stenosis bilateral carotid bifurcations. This is approaching 50% on the left. No acute changes [place]. Patient had a carotid Doppler also performed recently on 05/15/2022, which revealed elevated ICA peak systolic velocities likely on the basis of turbulent flow as the end-diastolic velocities and ICA/CCA ratios fall within normal limits. Vascular surgery input appreciated. Discussed with patient's son in detail. They do not believe patient is stable enough to undergo any anesthesia. Patient may be a candidate for ICA stenting. We will await vascular surgery input regarding CTA report. If they do not want surgery, then I would switch aspirin to Plavix. Continue Eliquis. MRI brain with and without contrast revealed acute/subacute foci of ischemia within the peripheral right parietal, temporal and occipital lobes. No abnormal contrast enhancement. Remote ischemic injuries to the right frontal, right parietal occipital, right thalamus and left cerebellum. Nonspecific white matter changes, likely related to chronic small vessel ischemic disease. I personally reviewed MRI agree with the findings. 2D echo revealed normal left ventricular size and systolic function with EF 55- 60%. Moderate LVH. Trace to mild MR. Mild TR. Normal left atrial size. Lipid panel with cholesterol 101, LDL 51, HDL 37, triglycerides 59. Continue pravastatin 40 mg daily. Hemoglobin A1c 5.9 on 07/20/2022. Patient has ischemic stroke despite being on Eliquis 2.5 mg twice a day and aspirin 81 mg daily. This is likely due to severe ICA stenosis. No need for FRANCINE. Patient is compliant with medications. Patient never had a clear-cut seizure. Patient's son wants to stop Keppra. We will decrease it by 500 mg daily for 5 days until off. Routine EEG: Mild encephalopathy. NO seizure or discharges. We'll defer the rest of the medical management to the primary team Discussed in detail with patient's son, nursing staff and primary team.
--- NOTE | 2022-12-28 12:55 | P.DS ---
Providers Date of admission: 12/18/22 13:39 Expected date of discharge: 12/28/22 Attending physician: Treva Nunez MD Consults: 12/18/22 13:38 Consult Physician Routine Consulting Provider: James Felder Consult Reason/Comments: ams Do you want consulting provider notified?: Yes 12/20/22 13:00 Consult Physician Routine Consulting Provider: Dung Bee Consult Reason/Comments: COPD, Resp failure, New onset Do you want consulting provider notified?: Yes 12/22/22 17:30 Consult Physician Urgent Consulting Provider: Cruz Bloom Consult Reason/Comments: recurrent stroke and is on eliquis. consider switching or going up Do you want consulting provider notified?: Yes 12/27/22 12:45 Consult Physician Routine Consulting Provider: Anjana Jay Consult Reason/Comments: Multiple ischemic strokes while on eliquis and ASA, carotid stenosis per US Do you want consulting provider notified?: Yes [facility] care [facility] Course: Discharge diagnoses; Urinary tract infection * Acute metabolic encephalopathy * Acute stroke * Acute delirium * Paroxysmal A. fib * History of COPD with chronic hypoxic respiratory failure * History of seizure disorder * History of DVT * Dyslipidemia Hospital course; 87-year-old patient with past medical history significant for CVA, hyperlipidemia, hypertension seizure disorder history of DVT or to the emergency department by family secondary to increased confusion. Per chart review patient has not slept in 3 days and was hallucinating and was brought to the ED for further evaluation patient had similar presentation in the past and was seen by neurology in June 2022 for concern for hand tremors and suspicion for focal seizure. * Workup initiated in ER included CBC which showed normal WC count normal hemoglobin and platelet count INR within normal limits * Serum chemistry showed sodium of 140 potassium 4.6, Kasia 33 BUN 20 creatinine 0.76 AST of 38 ALT of 15 troponin within normal limits * Urinalysis obtained showed WBC bacteria excessive squamous epithelial cells appeared urinalysis is ordered * Patient had urine toxicology done which was positive for opiates CT head obtained in ED was negative * X-ray shows subtle opacity however no suspicion for pneumonia at this point normal white cell count * EKG obtained in ER showed sinus rhythm * Patient is a poor historian historian, No family at bedside during my eval, Chart reviewed in History taking * 12/19/22: Patient seen and evaluated bedside, patient alert and oriented to person only, mentation has improved slightly. Blood work reviewed CBC within normal limits serum chemistry shows potassium of 5.4 which will be repeated. Patient remains afebrile, continue IV Rocephin home medications reviewed and reconciled * 12/20/22: Patient seen and evaluated bedside. Patient was noted to be alert and oriented 2. Blood pressure is stable, CRP elevated at 6.4 BNP 250 WBC 11.9 * 12/21/22: Patient evaluated bedside, patient was delirious overnight, had an episode of fall did not hit her head. Per nursing staff mentation slightly better. On my assessment patient is alert to person and situation. Patient is having significant owning we will initiate Seroquel tonight as well. Serum chemistry within normal limits CBC essentially normal as well venous blood gas obtained showed pCO2 of 51 pH of 7.34. Reviewed by pulmonary medicine as well etiology for delirium likely secondary to UTI. Patient will likely need to be discharged to rehab facility once mentation improves 12/22. Patient seen and examined. Labs were done this morning showed WBC 6.6, hemoglobin 11.1, sodium 142, potassium 4.3, BUN 11.5, creatinine 0.8. Vital signs temperature 99.7, heart rate 64, respirations 16, blood pressure 161/69. EeG done does not show any seizure-like activity. MRI brain pending 12/23. Patient seen and examined. Son at the bedside. MRI brain done showed acute/subacute foci of ischemia within the peripheral right parietal, temporal and occipital lobes. Mental status is improving. No acute issues overnight 12/24. Patient seen and examined. Lethargic, answering questions. 12/25. Patient seen and examined. Laying comfortably in the bed. Answers questions but responses delayed. 12/26. Patient seen and examined. 2-D echo done showed normal LVEF, trace to mild mitral regurg, mild tricuspid regurg and mild pulmonary hypertension. Patient had a fall this morning, CT head was done negative for any acute bleed, showed superficial soft tissue swelling over the right frontal temporal region 12/27. Patient seen and examined. Son at the bedside. Patient has significant bruising of the right side of her face. Neurology recommended decreasing her Keppra to 500 mg once daily and then stopping it completely after 5 days. Vital signs stable 12/28. Patient seen and examined. Neurology has cleared the patient for di hay, aspirin discontinued and patient started on Plavix, continue Eliquis. Being discharge to rehab PHYSICAL EXAMINATION: GENERAL: The patient is alert , not in any acute distress. Bruising of right side of face and around the right eye HEENT: Pupils are round and equally reacting to light. EOMI. No scleral icterus. No conjunctival pallor. Normocephalic, atraumatic. No pharyngeal erythema. No thyromegaly. CARDIOVASCULAR: S1 and S2 present. No murmurs, rubs, or gallops. PULMONARY: Chest is clear to auscultation, no wheezing or crackles. ABDOMEN: Soft, nontender, nondistended, normoactive bowel sounds. No palpable organomegaly. MUSCULOSKELETAL: No joint swelling or deformity. EXTREMITIES: No cyanosis, clubbing, or pedal edema. NEUROLOGICAL: Alert, moving all extremities SKIN: No rashes. Dictation was produced using ROI² dictation software. please excuse any grammatical, word or spelling errors. Patient Condition at Discharge: Fair Plan - Discharge Summary Discharge Rx Participant: No New Discharge Prescriptions: New Losartan [Cozaar] 50 mg PO DAILY tab levETIRAcetam [Keppra] 500 mg PO DAILY 4 Days #4 tab Clopidogrel [Plavix] 75 mg PO DAILY 30 Days #30 tab Continue Pravastatin Sodium [Pravachol] 40 mg PO DAILY Ferrous Sulfate [Iron (65 MG Elemental)] 325 mg PO DAILY Pantoprazole [Protonix] 40 mg PO DAILY DULoxetine HCL [Cymbalta] 30 mg PO DAILY Albuterol Inhaler [Ventolin Hfa Inhaler] 2 puff INHALATION RT-Q6H PRN PRN Reason: Shortness Of Breath Acetaminophen-Codeine 300-30mg [Tylenol w/codeine #3] 1 tab PO BID PRN #4 tab PRN Reason: Pain Isosorbide Mononitrate ER [Imdur] 30 mg PO DAILY Furosemide [Lasix] 20 mg PO DAILY Melatonin 1 mg PO HS Denosumab [Prolia] 60 mg SQ Q180D Apixaban [Eliquis] 2.5 mg PO BID Cholecalciferol [Vitamin D3 (25 Mcg = 1000 Iu)] 25 mcg PO DAILY Ascorbic Acid [Vitamin C] 500 mg PO DAILY Discontinued Aspirin 81 mg PO DAILY 30 Days #30 tab levETIRAcetam [Keppra] 500 mg PO Q12HR Discharge Medication List Pravastatin Sodium [Pravachol] 40 mg PO DAILY 08/04/13 [History] Ferrous Sulfate [Iron (65 MG Elemental)] 325 mg PO DAILY 02/05/17 [History] Pantoprazole [Protonix] 40 mg PO DAILY 04/11/18 [History] Albuterol Inhaler [Ventolin Hfa Inhaler] 2 puff INHALATION RT-Q6H PRN 04/29/22 [History] Apixaban [Eliquis] 2.5 mg PO BID 04/29/22 [History] DULoxetine HCL [Cymbalta] 30 mg PO DAILY 04/29/22 [History] Denosumab [Prolia] 60 mg SQ Q180D 04/29/22 [History] Furosemide [Lasix] 20 mg PO DAILY 04/29/22 [History] Isosorbide Mononitrate ER [Imdur] 30 mg PO DAILY 04/29/22 [History] Melatonin 1 mg PO HS 04/29/22 [History] Cholecalciferol [Vitamin D3 (25 Mcg = 1000 Iu)] 25 mcg PO DAILY 09/30/22 [History] Ascorbic Acid [Vitamin C] 500 mg PO DAILY 10/27/22 [History] Acetaminophen-Codeine 300-30mg [Tylenol w/codeine #3] 1 tab PO BID PRN #4 tab 12/28/22 [Rx] Clopidogrel [Plavix] 75 mg PO DAILY 30 Days #30 tab 12/28/22 [Rx] Losartan [Cozaar] 50 mg PO DAILY tab 12/28/22 [Rx] levETIRAcetam [Keppra] 500 mg PO DAILY 4 Days #4 tab 12/28/22 [Rx] Follow up Appointment(s)/Referral(s): Tacos Saha MD [Primary Care Provider] - 1-2 days James Herndon MD [STAFF PHYSICIAN] - 1 Week Discharge Disposition: TRANSFER TO SNF/ECF
--- NOTE | 2022-12-28 13:05 | P.PN ---
Subjective Progress Note Date: 12/28/22 Principal diagnosis: Carotid stenosis Patient seen and examined today as a follow-up. She is sitting up in the bedside chair. She does have a sitter at the bedside. No acute changes through the night. She had her CT angiogram head and neck completed yesterday which reports greater than 90% stenosis of the proximal right internal carotid artery which has worsened from prior on 07/20/2022. Alternatively this may represent a short segment of occlusion with back filling. Right measures up to 4 mm in length similar at least 70% stenosis of the proximal internal carotid artery secondary to calcified. Beaded appearing of the right carotid bifurcation which could represent focal nodular hyperplasia. Findings similar to prior 2523. Diminutive right internal carotid artery extending from area of suspected occlusion versus high-grade stenosis in to the termination into the koi of [place]. No evidence of dissection of the cervical internal carotid arteries or vertebral arteries. No evidence of intracranial high-grade stenosis or intracranial aneurysm. There is blind ending arterial vascular structure off the distal aortic arch. Unclear whether this is a penetrating arthrosclerotic ulcer versus postsurgical change given multiple surgical clips. If this is postsurgical change in the graft is patent. This is stable from 07/20/2022. Right frontal scalp hematoma without evidence of active extravasation. No evidence of fracture Objective - Vital Signs Vital signs: Vital Signs Temp 98.8 F 12/28/22 07:15 Pulse 81 12/28/22 07:15 Resp 21 12/28/22 07:15 BP 136/75 12/28/22 07:15 Pulse Ox 97 12/28/22 08:31 FiO2 Intake & Output 12/27/22 12/28/22 12/28/22 18:59 06:59 18:59 Intake Total 200 Balance 200 Weight 65.1 kg Intake: Oral 200 Other: Voiding Method Diaper Diaper Incontinent Incontinent # Voids 4 1 - Exam General appearance: The patient is alert, oriented, appears in no acute distress. HET: Head is normocephalic, bruising around right thigh and right frontal hemat shaneka. Neck: Supple. Heart: Regular. Lungs: Equal expansion, normal respiratory effort. Abdomen: Soft, nontender, nondistended. Extremities: Normal skin color and turgor. Neurological: No focal deficits noted. - Labs CBC & Chem 7: 12/25/22 06:01 12/25/22 06:01 Assessment and Plan Assessment: 1. Acute subacute foci of ischemia with an peripheral right parietal, temporal and occipital lobes 2. Severe bilateral ICA stenosis 3. History of right carotid endarterectomy per chart 4. Atrial fibrillation on eliquis 5. History coronary artery disease 6. Hypertension 7. Hyperlipidemia Plan: 1. CTA head and neck ordered and reviewed 2. Will discontinue a 1 mg aspirin daily and add Plavix 75 mg daily and continue Eliquis Long discussion had with son was at the bedside regarding patient's mother Kate. They do not want to have any surgical intervention, including carotid intervention. Preference is to maximize medical therapy. Also discussed with the patient's son with CODE STATUS which he will address further with his mother. Further discussion was had with patient regarding findings of CT angiogram head and neck with severe stenosis and risk for stroke. Patient verbalizes understanding and states she does not want any surgical intervention. Continue to maximize medical therapy Thank you for this consultation. The impression and plan of care has been dictated as directed. Dr. Jay I performed a history and examination of this patient, discussed the same with the dictator. I agree with the dictator's note ,documented as a scribe. Any additional findings or plans will be noted.
[2022-12-28 15:44] VITALS: BMI 23.8
[2022-12-29] MEDS ORDERED: levETIRAcetam 500 MG TAB PO SCH (09:00)
[2022-12-29] MEDS ORDERED: CLOPIDOGREL 75 MG TAB PO SCH (09:00)
--- NOTE | 2022-12-31 19:02 | CDI ---
Documentation Clarification Form Date: 12/31/2022 06:49:01 PM From: Michelle Rubio Phone: Admit Date: 12/18/2022 01:39:00 PM Patient Name: Kate Medrano Visit Number: [id number] Discharge Date: 12/28/2022 03:40:00 PM ATTENTION: The Clinical Documentation Specialists (CDI) and [facility] Coding Staff appreciate your assistance in clarifying documentation. Please respond to the clarification below the line at the bottom and electronically sign. The CDI & [facility] Coding staff will review the response and follow-up if needed. Please note: Queries are made part of the Legal Health Record. If you have any questions, please contact the author of this message via ITS. Dr. Toro Whitaker Your patient has the documented diagnosis of unspecified CHF per PMH Notes. Additional information regarding the type of CHF is requested. History/Risk Factors: 87yo F, UTI, CVA, acute met enceph, acute delirium, PAF, Centrilobular emphysema w CHRF on O2 ,Hxseizure disorder, Hx DVT, HLD, HTN, PHTN, MR, TR, BICA stenosis VS/Pulse OX: 95-99 BNP: 250 Echocardiogram Results: Normal LV size and systolic function with moderate LVH. Trace to MR. MildTRwith mildPHTN. Chest x ray: Subtle scatteredopacitiesgiven thecardiomegalycorrelate foratypical PNAversusCHF. Treatment: monitored In your professional opinion, can you please clarify the type of CHF if known? [ ] Chronic Systolic Heart Failure (reduced EF) [ x ] Chronic Diastolic Heart Failure (preserved EF) [ ] Chronic Systolic & Diastolic Heart Failure [ ] Other, please specify [ ] Unable to determine (Template Last Revised: March 2020) MTDD
== END 2022-12-28 15:40 | DRG 64 ==
LOC: EC 05:53 → 5NMEDONC 13:39
PROVIDERS: ADMIT Internal Medicine; ATTEND Internal Medicine
DX: I63.233 Cerebral infarction due to unspecified occlusion or stenosis of bilateral carotid arteries (principal); G93.41 Metabolic encephalopathy; J96.11 Chronic respiratory failure with hypoxia; I69.354 Hemiplegia and hemiparesis following cerebral infarction affecting left non-dominant side; N39.0 Urinary tract infection, site not specified; F05 Delirium due to known physiological condition; I50.32 Chronic diastolic (congestive) heart failure; I27.20 Pulmonary hypertension, unspecified; I11.0 Hypertensive heart disease with heart failure; J43.2 Centrilobular emphysema; I48.0 Paroxysmal atrial fibrillation; G93.89 Other specified disorders of brain; Z99.81 Dependence on supplemental oxygen; I08.1 Rheumatic disorders of both mitral and tricuspid valves; E78.5 Hyperlipidemia, unspecified; M19.90 Unspecified osteoarthritis, unspecified site; S00.83XA Contusion of other part of head, initial encounter; R00.1 Bradycardia, unspecified; I44.0 Atrioventricular block, first degree; S00.03XA Contusion of scalp, initial encounter; G89.29 Other chronic pain; M54.50 Low back pain, unspecified; R53.81 Other malaise; W07.XXXA Fall from chair, initial encounter; Y92.230 Patient room in hospital as the place of occurrence of the external cause; Z86.718 Personal history of other venous thrombosis and embolism; Z79.899 Other long term (current) drug therapy; Z82.49 Family history of ischemic heart disease and other diseases of the circulatory system; Z85.3 Personal history of malignant neoplasm of breast; Z79.01 Long term (current) use of anticoagulants; Z79.82 Long term (current) use of aspirin; Z87.891 Personal history of nicotine dependence; Z28.310 Unvaccinated for COVID-19; Z86.69 Personal history of other diseases of the nervous system and sense organs
CPT/HCPCS: 36410; 36415; 70450; 70496; 70498; 70553; 71045; 71046; 76937; 80048; 80053; 80061; 80306; 80320; 81001; 82803; 83605; 83880; 84132; 84145; 84484; 85025; 85027; 85610; 85730; 86140; 87040; 87086; 93005; 93306; 93880; 94640; 94760; 95816; 96365; 96375; 99285

== ENCOUNTER 2023-02-14 00:14 | Emergency (ER) | payer MEDICARE, BC ==
[2023-02-14 00:31] VITALS: TEMP 98
[2023-02-14] MEDS ORDERED: SODIUM CHLORIDE 0.9% 1,000 ML IV ONE (00:40)
--- NOTE | 2023-02-14 01:38 | ED ---
General Adult HPI - General Chief complaint: Altered Mental Status Stated complaint: UTI, AMS Time Seen by Provider: 02/14/23 00:22 Source: patient, EMS, RN notes reviewed, old records reviewed Mode of arrival: EMS Limitations: no limitations - History of Present Illness Initial comments: Patient is an 88-year-old female presents emergency department from mental status. Patient has had some intermittent confusion over the last day. Presents with her son. Has a history of UTI when she has no symptoms. No known traumas. Mild coughing. Patient denies any acute complaints this time and does not want to be here. She is currently alert and oriented 3-4. Patient's son states that she intermittently becomes confused. However is not consistent. Denies any trauma for the patient. Presents for further evaluation at this time. - Related Data Home Medications Medication Instructions Recorded Confirmed Pravastatin Sodium [Pravachol] 40 mg PO DAILY 08/04/13 12/18/22 Ferrous Sulfate [Iron (65 MG 325 mg PO DAILY 02/05/17 12/18/22 Elemental)] Pantoprazole [Protonix] 40 mg PO DAILY 04/11/18 12/18/22 Albuterol Inhaler [Ventolin Hfa 2 puff INHALATION RT-Q6H PRN 04/29/22 12/18/22 Inhaler] Apixaban [Eliquis] 2.5 mg PO BID 04/29/22 12/18/22 DULoxetine HCL [Cymbalta] 30 mg PO DAILY 04/29/22 12/18/22 Denosumab [Prolia] 60 mg SQ Q180D 04/29/22 12/18/22 Furosemide [Lasix] 20 mg PO DAILY 04/29/22 12/18/22 Isosorbide Mononitrate ER [Imdur] 30 mg PO DAILY 04/29/22 12/18/22 Melatonin 1 mg PO HS 04/29/22 12/18/22 Cholecalciferol [Vitamin D3 (25 25 mcg PO DAILY 09/30/22 12/18/22 Mcg = 1000 Iu)] Ascorbic Acid [Vitamin C] 500 mg PO DAILY 10/27/22 12/18/22 Previous Rx's Medication Instructions Recorded Acetaminophen-Codeine 300-30mg 1 tab PO BID PRN #4 tab 12/28/22 [Tylenol w/codeine #3] Clopidogrel [Plavix] 75 mg PO DAILY 30 Days #30 tab 12/28/22 Losartan [Cozaar] 50 mg PO DAILY tab 12/28/22 levETIRAcetam [Keppra] 500 mg PO DAILY 4 Days #4 tab 12/28/22 Cephalexin [Keflex] 500 mg PO Q12HR 7 Days #14 cap 02/14/23 Allergies Allergy/AdvReac Type Severity Reaction Status Date / Time No Known Allergies Allergy Verified 12/18/22 09:25 Review of Systems ROS Statement: Those systems with pertinent positive or pertinent negative responses have been documented in the HPI. Review of Systems: CONST: Denies fever EYES: Denies blurry vision ENT: Denies nasal congestion C/V: Denies Chest pain RESP: Denies shortness of breath GI: Denies abdominal pain : Denies dysuria SKIN: Denies rash. MSK: Denies joint pain. NEURO: Denies headache ROS Other: All systems not noted in ROS Statement are negative. 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,, emphysema; hypoglycemia, hx breast cancer, History of Any Multi-Drug Resistant Organisms: None Reported Past Surgical History: Back Surgery, Breast Surgery, Cholecystectomy, Heart Catheterization Additional Past Surgical History / Comment(s): L SUBCLAVIAN ARTERY BYPASS, Rt CAROTID ENDARTECTOMY, rt breast lumpectomy Past Anesthesia/Blood Transfusion Reactions: No Reported Reaction Additional Past Anesthesia/Blood Transfusion Reaction / Comment(s): PT RECIEVED BLOOD TRANSFUSION Past Psychological History: Anxiety Smoking Status: Former smoker Past Alcohol Use History: None Reported Past Drug Use History: None Reported - Past Family History Brother(s) Family Medical History: Cancer Sister(s) Family Medical History: Cancer Mother Family Medical History: Coronary Artery Disease (CAD) Additional Family Medical History / Comment(s): enlarged heart Father Family Medical History: Coronary Artery Disease (CAD), CVA/TIA General Exam - General Exam Comments Initial Comments: General: Appears in no acute distress. HEAD: Normal with no signs of head trauma. EYES: PERRLA, EOMI, conjunctiva normal, no discharge. ENT: Hearing grossly intact, normal oropharynx. RESPIRATORY: Clear breath sounds bilaterally. No wheezes, rales, or rhonchi. C/V: Regular rate and rhythm. S1 and S2 auscultated, no edema, peripheral pulses 2+ and intact throughout ABD: Abd is soft, nontender, nondistended EXT: Normal range of motion, no obvious deformity SKIN: No rashes or lesions observed on exposed skin. NEURO: Alert and oriented x 4. Cranial nerves II-XII intact. No focal sensory o r strength deficits. GCS of 15. Limitations: no limitations Course Vital Signs 02/14/23 02/14/23 00:17 05:15 Temperature 98.0 F Pulse Rate 59 L 92 Respiratory 17 18 Rate Blood Pressure 165/72 167/97 O2 Sat by Pulse 93 L 92 L Oximetry Medical Decision Making - Medical Decision Making Was pt. sent in by a medical professional or institution (, PA, METAL BUILDING ASSEMBLER, urgent care, hospital, or [facility]...) When possible be specific @ -No Did you speak to anyone other than the patient for history (EMS, parent, family, police, friend...)? What history was obtained from this source @ -Patient's sons at bedside and states that patient's current symptoms are very consistent with history of UTIs. Did you review nursing and triage notes (agree or disagree)? Why? @ -I reviewed and agree with nursing and triage notes Were old charts reviewed (outside hosp., previous admission, EMS record, old EKG, old radiological studies, urgent care reports/EKG's, [facility] records)? Report findings @ -Old charts reviewed Differential Diagnosis (chest pain, altered mental status, abdominal pain women, abdominal pain men, vaginal bleeding, weakness, fever, dyspnea, syncope, headache, dizziness, GI bleed, back pain, seizure, CVA, palpatations, mental health, musculoskeletal)? @ -UTI, dehydration, upper respiratory infection. This list is not all inclusive. EKG interpreted by me (3pts min.). @ -As above X-rays interpreted by me (1pt min.). @ -Chest x-ray reveals no obvious acute cardio pulmonary process. CT interpreted by me (1pt min.). @ -CT brain reveals no obvious acute intracranial injury or bleed. U/S interpreted by me (1pt. min.). @ -None done What testing was considered but not performed or refused? (CT, X-rays, U/S, labs)? Why? @ -None What meds were considered but not given or refused? Why? @ -None Did you discuss the management of the patient with other professionals (professionals i.e. , PA, METAL BUILDING ASSEMBLER, lab, RT, psych nurse, administrator social welfare, substance abuse specialist, teacher, animal services officer, rifle case repairer)? Give summary @ -No Was smoking cessation discussed for >3mins.? @ -No Was critical care preformed (if so, how long)? @ -No Were there social determinants of health that impacted care today? How? (Homeles sness, low income, unemployed, alcoholism, drug addiction, transportation, low edu. Level, literacy, decrease access to med. care, fci, rehab)? @ -No Was there de-escalation of care discussed even if they declined (Discuss DNR or withdrawal of care, Hospice)? DNR status @ -No What co-morbidities impacted this encounter? (DM, HTN, Smoking, COPD, CAD, Cancer, CVA, ARF, Chemo, Hep., AIDS, mental health diagnosis, sleep apnea, morbid obesity)? @ -None Was patient admitted / discharged? Hospital course, mention meds given and route, prescriptions, significant lab abnormalities, going to OR and other pertinent info. @ -Patient presents with her son over concern for UTI. Has had identical symptoms in the past. No trauma for the patient. Is requesting workup for UTI. We also included workup for dehydration as well as Covid. Patient and patient's son in agreement this plan. Patient currently has no deficits, is alert and oriented 4. She is in agreement with the plan. Vital signs within acceptable limits. EKG showed no signs of ischemia.Patient's imaging unremarkable. Patient's labs remarkable for a possible early UTI. There was a little lung delay in obtaining some of the blood work is patient was a hard stick, and required multiple lab draws. After lengthy discussion with son inpatient, patient will be started on antibiotics and given strict return precautions. She'll be discharged, this time. They expressed understanding. I will provide the patient with a prescription for Keflex. I instructed the patient to follow up with their PCP in the next 1-3 days. I explained that the patient should return to the emergency department if they experience any worsening symptoms. Strict return precautions were discussed with the patient. The patient expressed understanding of these instructions. I answered all ques tions that the patient had. The patient was discharged home in good condition with their prescriptions and follow up information. Undiagnosed new problem with uncertain prognosis? @ -No Drug Therapy requiring intensive monitoring for toxicity (Heparin, Nitro, Insulin, Cardizem)? @ -No Were any procedures done? @ -No Diagnosis/symptom? @ -UTI Acute, or Chronic, or Acute on Chronic? @ -Acute Uncomplicated (without systemic symptoms) or Complicated (systemic symptoms)? @ -Complicated Side effects of treatment? @ -none Exacerbation, Progression, or Severe Exacerbation] @ -no Poses a threat to life or bodily function? @ -no - Lab Data Result diagrams: 02/14/23 00:58 02/14/23 00:58 Lab Results 02/14/23 02/14/23 02/14/23 Range/Units 00:58 00:58 00:58 WBC 5.9 (3.8-10.6) k/uL RBC 4.61 (3.80-5.40) m/uL Hgb 13.1 (11.4-16.0) gm/dL Hct 42.0 (34.0-46.0) % MCV 91.1 (80.0-100.0) fL MCH 28.5 (25.0-35.0) pg MCHC 31.3 (31.0-37.0) g/dL RDW 15.8 H (11.5-15.5) % Plt Count 200 (150-450) k/uL MPV 6.9 Neutrophils % 52 % Lymphocytes % 34 % Monocytes % 7 % Eosinophils % 2 % Basophils % 1 % Neutrophils # 3.0 (1.3-7.7) k/uL Lymphocytes # 2.0 (1.0-4.8) k/uL Monocytes # 0.4 (0-1.0) k/uL Eosinophils # 0.1 (0-0.7) k/uL Basophils # 0.0 (0-0.2) k/uL Hypochromasia Marked Sodium 137 (137-145) mmol/L Potassium 4.1 (3.5-5.1) mmol/L Chloride 98 (98-107) mmol/L Carbon Dioxide 30 (22-30) mmol/L Anion Gap 9 mmol/L BUN 14 (7-17) mg/dL Creatinine 0.72 (0.52-1.04) mg/dL Est GFR (CKD-EPI)AfAm 87 (>60 ml/min/1.73 sqM) Est GFR (CKD-EPI)NonAf 76 (>60 ml/min/1.73 sqM) Glucose 94 (74-99) mg/dL POC Glucose (mg/dL) (70-110) mg/dL POC Glu Machine Sweeper Brush Maker ID Calcium 9.8 (8.4-10.2) mg/dL Total Bilirubin 0.4 (0.2-1.3) mg/dL AST 29 (14-36) U/L ALT 13 (4-34) U/L Alkaline Phosphatase 63 (38-126) U/L Ammonia (<30) umol/L Total Protein 6.7 (6.3-8.2) g/dL Albumin 4.0 (3.5-5.0) g/dL Urine Color Colorless Urine Appearance Cloudy H (Clear) Urine pH 6.0 (5.0-8.0) Ur Specific [place] 1.015 (1.001-1.035) Urine Protein Negative (Negative) Urine Glucose (UA) Negative (Negative) Urine Ketones Negative (Negative) Urine Blood Negative (Negative) Urine Nitrite Negative (Negative) Urine Bilirubin Negative (Negative) Urine Urobilinogen <2.0 (<2.0) mg/dL Ur Leukocyte Esterase Moderate H (Negative) Urine RBC 2 (0-5) /hpf Urine WBC 8 H (0-5) /hpf Ur Squamous Epith Cells 6 H (0-4) /hpf Urine Bacteria Many H (None) /hpf Hyaline Casts 4 H (0-2) /lpf Urine Mucus Rare H (None) /hpf Influenza Type A (PCR) (Not Detectd) Influenza Type B (PCR) (Not Detectd) RSV (PCR) (Not Detectd) SARS-CoV-2 (PCR) (Not Detectd) 02/14/23 02/14/23 02/14/23 Range/Units 00:58 03:55 04:11 WBC (3.8-10.6) k/uL RBC (3.80-5.40) m/uL Hgb (11.4-16.0) gm/dL Hct (34.0-46.0) % MCV (80.0-100.0) fL MCH (25.0-35.0) pg MCHC (31.0-37.0) g/dL RDW (11.5-15.5) % Plt Count (150-450) k/uL MPV Neutrophils % % Lymphocytes % % Monocytes % % Eosinophils % % Basophils % % Neutrophils # (1.3-7.7) k/uL Lymphocytes # (1.0-4.8) k/uL Monocytes # (0-1.0) k/uL Eosinophils # (0-0.7) k/uL Basophils # (0-0.2) k/uL Hypochromasia Sodium (137-145) mmol/L Potassium (3.5-5.1) mmol/L Chloride (98-107) mmol/L Carbon Dioxide (22-30) mmol/L Anion Gap mmol/L BUN (7-17) mg/dL Creatinine (0.52-1.04) mg/dL Est GFR (CKD-EPI)AfAm (>60 ml/min/1.73 sqM) Est GFR (CKD-EPI)NonAf (>60 ml/min/1.73 sqM) Glucose (74-99) mg/dL POC Glucose (mg/dL) 88 (70-110) mg/dL POC Glu Machine Sweeper Brush Maker ID Finn Jacques Calcium (8.4-10.2) mg/dL Total Bilirubin (0.2-1.3) mg/dL AST (14-36) U/L ALT (4-34) U/L Alkaline Phosphatase (38-126) U/L Ammonia 9 (<30) umol/L Total Protein (6.3-8.2) g/dL Albumin (3.5-5.0) g/dL Urine Color Urine Appearance (Clear) Urine pH (5.0-8.0) Ur Specific [place] (1.001-1.035) Urine Protein (Negative) Urine Glucose (UA) (Negative) Urine Ketones (Negative) Urine Blood (Negative) Urine Nitrite (Negative) Urine Bilirubin (Negative) Urine Urobilinogen (<2.0) mg/dL Ur Leukocyte Esterase (Negative) Urine RBC (0-5) /hpf Urine WBC (0-5) /hpf Ur Squamous Epith Cells (0-4) /hpf Urine Bacteria (None) /hpf Hyaline Casts (0-2) /lpf Urine Mucus (None) /hpf Influenza Type A (PCR) Not Detected (Not Detectd) Influenza Type B (PCR) Not Detected (Not Detectd) RSV (PCR) Not Detected (Not Detectd) SARS-CoV-2 (PCR) Not Detected (Not Detectd) - EKG Data -: EKG Interpreted by Me EKG Comments: 12-lead Electrocardiogram Interpretation Note EKG was reviewed and interpreted by myself. 12-lead ECG performed at 0029 is interpreted by me as revealing normal sinus rhythm at a rate of 79 beats per minute. [place] is normal. AR interval is 229 ms, QRS duration is 65 ms, QTc is 391 ms.. There were no ST or T wave abnormalities to suggest myocardial ischemia or injury. R wave progression across the precordium was satisfactory. By my interpretation this EKG is non-diagnostic for acute ischemia. Disposition Clinical Impression: UTI (urinary tract infection) Disposition: HOME SELF-CARE Condition: Good Prescriptions: Cephalexin [Keflex] 500 mg PO Q12HR 7 Days #14 cap Is patient prescribed a controlled substance at d/c from ED?: No Referrals: Tacos Saha MD [Primary Care Provider] - 1-2 days Time of Disposition: 05:01
[2023-02-14 02:01] LABS: Basophils % (A) 1 %; Eosinophils # (A) 0.1 k/uL (0-0.7); Eosinophils % (A) 2 %; HGB 13.1 gm/dL (11.4-16.0); Hypochromasia Marked; Lymphocytes % (A) 34 %; MCH 28.5 pg (25.0-35.0); MCHC 31.3 g/dL (31.0-37.0); MCV 91.1 fL (80.0-100.0); Mean Platelet Volume 6.9; Monocytes # (A) 0.4 k/uL (0-1.0); Monocytes % (A) 7 %; Neutrophils % (A) 52 %; Platelet Count 200 k/uL (150-450); RBC 4.61 m/uL (3.80-5.40); RDW 15.8 % (11.5-15.5); WBC 5.9 k/uL (3.8-10.6)
[2023-02-14 02:05] LABS: ALT 13 U/L (4-34); AST 29 U/L (14-36); African American GFR (CKD) 87 (>60 ml/min/1.73 sqM); Alkaline Phosphatase 63 U/L (38-126); Anion Gap 9 mmol/L; Blood Urea Nitrogen 14 mg/dL (7-17); Calcium 9.8 mg/dL (8.4-10.2); Carbon Dioxide 30 mmol/L (22-30); Chloride 98 mmol/L (98-107); Glucose 94 mg/dL (74-99); Non-African American GFR(CKD) 76 (>60 ml/min/1.73 sqM); Potassium 4.1 mmol/L (3.5-5.1); Sodium 137 mmol/L (137-145); Total Bilirubin 0.4 mg/dL (0.2-1.3); Total Protein 6.7 g/dL (6.3-8.2)
[2023-02-14 03:35] LABS: Appearance,Urine Cloudy (Clear); Bacteria,Urine Many /hpf; Bilirubin,Urine Negative (Negative); Blood,Urine Negative (Negative); Color,Urine Colorless; Glucose,Urine (UA) Negative (Negative); Hyaline Casts,Urine 4 /lpf (0-2); Ketones,Urine Negative (Negative); Leukocyte Esterase,Urine Moderate (Negative); Mucus,Urine Rare /hpf; Nitrite,Urine Negative (Negative); Protein,Urine Negative (Negative); RBC,Urine 2 /hpf (0-5); Specific Gravity,Urine 1.015 (1.001-1.035); Squamous Epithelial Cell,Urine 6 /hpf (0-4); Urobilinogen,Urine <2.0 mg/dL (<2.0); WBC,Urine 8 /hpf (0-5)
[2023-02-14 03:57] LABS: Glucose,Whole Blood 88 mg/dL (70-110)
--- NOTE | 2023-02-14 04:28 | CT ---
EXAM: CT Head Without Intravenous Contrast CLINICAL HISTORY: ITS.REASON CT Reason: confusion, on thinners, unknown trauma TECHNIQUE: Axial computed tomography images of the head/brain without intravenous contrast. CTDI is 49.2 mGy and DLP is 1093.4 mGy-cm. This CT exam was performed using one or more of the following dose reduction techniques: automated exposure control, adjustment of the mA and/or kV according to patient size, and/or use of iterative reconstruction technique. COMPARISON: No relevant prior studies available. FINDINGS: Brain: No hemorrhage, herniation, or mass effect. Chronic microvascular ischemic changes. Right frontal encephalomalacia. Ventricles: No hydrocephalus. Age related cerebral volume loss. Bones/joints: Unremarkable. Soft tissues: Unremarkable. Sinuses: Unremarkable. Mastoid air cells: Clear. IMPRESSION: No acute hemorrhage, hydrocephalus, or mass effect.
[2023-02-14] MEDS ORDERED: cefTRIAXone IN SWFI 1,000 MG/10 ML SYRINGE IVP STA (05:11)
[2023-02-14 05:28] LABS: Partial Thromboplastin Time 25.8 sec (22.0-30.0)
[2023-02-14 05:58] VITALS: RESP 18
--- NOTE | 2023-02-14 06:21 | XR ---
EXAM: XR Chest, 2 Views CLINICAL HISTORY: ITS.REASON XR Reason: altered mental status TECHNIQUE: Frontal and lateral views of the chest. COMPARISON: Single view of the chest December 20, 2017 IMPRESSION: 1. Minimal bibasilar atelectatic changes. Otherwise, no acute cardiopulmonary abnormality.
[2023-02-14 06:45] VITALS: BP 175/88; PULSE 87
== END 2023-02-14 06:27 | disposition home or self-care (01) ==
LOC: EC 00:14
DX: N39.0 Urinary tract infection, site not specified (principal); I11.0 Hypertensive heart disease with heart failure; I50.9 Heart failure, unspecified; F41.9 Anxiety disorder, unspecified; E78.5 Hyperlipidemia, unspecified; M19.90 Unspecified osteoarthritis, unspecified site; J44.9 Chronic obstructive pulmonary disease, unspecified; Z79.01 Long term (current) use of anticoagulants; Z79.899 Other long term (current) drug therapy; Z87.891 Personal history of nicotine dependence; Z90.49 Acquired absence of other specified parts of digestive tract; Z20.822 Contact with and (suspected) exposure to COVID-19
CPT/HCPCS: 36415; 93005; 80053; 82140; 85025; 85610; 85730; 81001; 87086; 87636; 71046; 70450; 99285; 96374; J0696

== ENCOUNTER 2023-03-04 06:18 | Inpatient (IN) | payer MEDICARE, BC ==
[2023-03-04 06:31] LABS: Glucose,Whole Blood 102 mg/dL (70-110)
[2023-03-04] MEDS ORDERED: MECLIZINE 12.5 MG TAB PO STA (06:37)
[2023-03-04] MEDS ORDERED: SODIUM CHLORIDE 0.9% 500 ML 500 ML IV STA (06:37)
[2023-03-04 07:04] LABS: Anisocytosis Slight; Basophils % (A) 1 %; Eosinophils # (A) 0.1 k/uL (0-0.7); Eosinophils % (A) 2 %; HCT 42.9 % (34.0-46.0); Hypochromasia Marked; Lymphocytes # (A) 2.7 k/uL (1.0-4.8); Lymphocytes % (A) 47 %; MCH 28.1 pg (25.0-35.0); MCHC 30.4 g/dL (31.0-37.0); MCV 92.5 fL (80.0-100.0); Monocytes # (A) 0.5 k/uL (0-1.0); Monocytes % (A) 9 %; Neutrophils # (A) 2.2 k/uL (1.3-7.7); Neutrophils % (A) 39 %; Platelet Count 245 k/uL (150-450); RBC 4.63 m/uL (3.80-5.40); RDW 16.1 % (11.5-15.5); WBC 5.8 k/uL (3.8-10.6)
--- NOTE | 2023-03-04 07:27 | ED ---
Dizziness HPI - General Chief Complaint: Dizziness Stated Complaint: Headache, dizziness Time Seen by Provider: 03/04/23 06:30 Source: patient, EMS, RN notes reviewed Mode of arrival: EMS Limitations: no limitations - History of Present Illness Initial Comments: 88-year-old female presents emergency Department from home with chief complaint of feeling lightheaded, dizzy. Patient states that she has was bathroom states that she fell her that she did not pass out. She is went to the bathroom went back and states that the room started spinning. Patient states that she is okay. Skin down. Symptoms were worse when she get up and move. She denies any chest pain or shortness of breath. She denies any focal weakness patient denies any recent URI symptoms. - Related Data Home Medications Medication Instructions Recorded Confirmed Pravastatin Sodium [Pravachol] 40 mg PO DAILY 08/04/13 12/18/22 Ferrous Sulfate [Iron (65 MG 325 mg PO DAILY 02/05/17 12/18/22 Elemental)] Pantoprazole [Protonix] 40 mg PO DAILY 04/11/18 12/18/22 Albuterol Inhaler [Ventolin Hfa 2 puff INHALATION RT-Q6H PRN 04/29/22 12/18/22 Inhaler] Apixaban [Eliquis] 2.5 mg PO BID 04/29/22 12/18/22 DULoxetine HCL [Cymbalta] 30 mg PO DAILY 04/29/22 12/18/22 Denosumab [Prolia] 60 mg SQ Q180D 04/29/22 12/18/22 Furosemide [Lasix] 20 mg PO DAILY 04/29/22 12/18/22 Isosorbide Mononitrate ER [Imdur] 30 mg PO DAILY 04/29/22 12/18/22 Melatonin 1 mg PO HS 04/29/22 12/18/22 Cholecalciferol [Vitamin D3 (25 25 mcg PO DAILY 09/30/22 12/18/22 Mcg = 1000 Iu)] Ascorbic Acid [Vitamin C] 500 mg PO DAILY 10/27/22 12/18/22 Previous Rx's Medication Instructions Recorded Acetaminophen-Codeine 300-30mg 1 tab PO BID PRN #4 tab 12/28/22 [Tylenol w/codeine #3] Clopidogrel [Plavix] 75 mg PO DAILY 30 Days #30 tab 12/28/22 Losartan [Cozaar] 50 mg PO DAILY tab 12/28/22 levETIRAcetam [Keppra] 500 mg PO DAILY 4 Days #4 tab 12/28/22 Cephalexin [Keflex] 500 mg PO Q12HR 7 Days #14 cap 02/14/23 Allergies Allergy/AdvReac Type Severity Reaction Status Date / Time No Known Allergies Allergy Verified 12/18/22 09:25 Review of Systems ROS Statement: Those systems with pertinent positive or pertinent negative responses have been documented in the HPI. ROS Other: All systems not noted in ROS Statement are negative. 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,, emphysema; hypoglycemia, hx breast cancer, History of Any Multi-Drug Resistant Organisms: None Reported Past Surgical History: Back Surgery, Breast Surgery, Cholecystectomy, Heart Catheterization Additional Past Surgical History / Comment(s): L SUBCLAVIAN ARTERY BYPASS, Rt CAROTID ENDARTECTOMY, rt breast lumpectomy Past Anesthesia/Blood Transfusion Reactions: No Reported Reaction Additional Past Anesthesia/Blood Transfusion Reaction / Comment(s): PT RECIEVED BLOOD TRANSFUSION Past Psychological History: Anxiety Smoking Status: Former smoker Past Alcohol Use History: None Reported Past Drug Use History: None Reported - Past Family History Brother(s) Family Medical History: Cancer Sister(s) Family Medical History: Cancer Mother Family Medical History: Coronary Artery Disease (CAD) Additional Family Medical History / Comment(s): enlarged heart Father Family Medical History: Coronary Artery Disease (CAD), CVA/TIA General Exam Limitations: no limitations General appearance: alert, in no apparent distress Head exam: Present: atraumatic, normocephalic, normal inspection Eye exam: Present: normal appearance, PERRL, EOMI. Absent: scleral icterus, conjunctival injection, periorbital swelling ENT exam: Present: normal exam, mucous membranes moist Neck exam: Present: normal inspection. Absent: tenderness, meningismus, lymphadenopathy Respiratory exam: Present: normal lung sounds bilaterally. Absent: respiratory distress, wheezes, rales, rhonchi, stridor Cardiovascular Exam: Present: normal rhythm, bradycardia, normal heart sounds. Absent: systolic murmur, diastolic murmur, rubs, gallop, clicks GI/Abdominal exam: Present: soft, normal bowel sounds. Absent: distended, tenderness, guarding, rebound, rigid Neurological exam: Present: alert. Absent: oriented X3 Course Vital Signs 03/04/23 03/04/23 03/04/23 06:19 07:30 08:00 Temperature 98.3 F 98.5 F Pulse Rate 54 L 39 L 41 L Respiratory 16 16 Rate Blood Pressure 103/55 119/61 O2 Sat by Pulse 93 L 92 L Oximetry 03/04/23 08:08 Temperature Pulse Rate 68 Respiratory 17 Rate Blood Pressure O2 Sat by Pulse 93 L Oximetry EKG Findings - EKG Comments: EKG Findings:: EKG performed at 6:52 rate of 39 QRS 70 QT/QTC 475/402 - EKG Results: EKG: interpreted by [facility] Medical Decision Making - Medical Decision Making Was pt. sent in by a medical professional or institution (, PA, TANK ASSEMBLER, urgent care, hospital, or penitentiary...) When possible be specific @ -No Did you speak to anyone other than the patient for history (EMS, parent, family, police, friend...)? What history was obtained from this source @ -No Did you review nursing and triage notes (agree or disagree)? Why? @ -I reviewed and agree with nursing and triage notes Were old charts reviewed (outside hosp., previous admission, EMS record, old EKG, old radiological studies, urgent care reports/EKG's, penitentiary records)? Report findings @ -No old charts were reviewed Differential Diagnosis (chest pain, altered mental status, abdominal pain women, abdominal pain men, vaginal bleeding, weakness, fever, dyspnea, syncope, headache, dizziness, GI bleed, back pain, seizure, CVA, palpatations, mental he alth, musculoskeletal)? @ -nDifferential Dizziness: Benign paroxysmal positional Vertigo, Menieres disease, otitis media, acoustic neuroma, vertebrobasilar insufficiency, cerebellar stroke, encephalitis, hypovolemic, arrhythmia, coronary artery syndrome, anemia, this is not meant to be an all-inclusive listle EKG interpreted by me (3pts min.). @ -As above X-rays interpreted by me (1pt min.). @ -None done CT interpreted by me (1pt min.). @ -None done U/S interpreted by me (1pt. min.). @ -None done What testing was considered but not performed or refused? (CT, X-rays, U/S, labs)? Why? @ -None What meds were considered but not given or refused? Why? @ -None Did you discuss the management of the patient with other professionals (professionals i.e. DrJanina, PA, TANK ASSEMBLER, lab, RT, psych nurse, social insurance analyst, fraud examiner, teacher, customs and immigration officer, child support case officer)? Give summary @ -EMH for admission secondary to bradycardia in which patient was symptomatic, lightheaded and dizziness. Was smoking cessation discussed for >3mins.? @ -No Was critical care preformed (if so, how long)? @ -35mins Were there social determinants of health that impacted care today? How? (Homelessness, low income, unemployed, alcoholism, drug addiction, transportation, low edu. Level, literacy, decrease access to med. care, usp, rehab)? @ -No Was there de-escalation of care discussed even if they declined (Discuss DNR or withdrawal of care, Hospice)? DNR status @ -No What co-morbidities impacted this encounter? (DM, HTN, Smoking, COPD, CAD, Cancer, CVA, ARF, Chemo, Hep., AIDS, mental health diagnosis, sleep apnea, morbid obesity)? @ -seizures,CVA Was patient admitted / discharged? Hospital course, mention meds given and route, prescriptions, significant lab abnormalities, going to OR and other pertinent info. @ -Admitted patient's found to have symptomatic bradycardia heart rate 39 EKG, persistent bradycardia in the emergency department was given atropine heart rate did improve. Patient will be admitted for further evaluation, monitoring. Undiagnosed new problem with uncertain prognosis? @ -No Drug Therapy requiring intensive monitoring for toxicity (Heparin, Nitro, Insulin, Cardizem)? @ -No Were any procedures done? @ -No Diagnosis/symptom? @ -[Dizziness, or bradycardia Acute, or Chronic, or Acute on Chronic? @ -Acute Uncomplicated (without systemic symptoms) or Complicated (systemic symptoms)? @ -complicated Side effects of treatment? @ -No Exacerbation, Progression, or Severe Exacerbation? @ -No Poses a threat to life or bodily function? How? (Chest pain, USA, MT, pneumonia, PE, COPD, DKA, ARF, appy, cholecystitis, CVA, Diverticulitis, Homicidal, Suicidal, threat to staff... and all critical care pts) @ -yes - Lab Data Result diagrams: 03/04/23 06:43 03/04/23 06:43 Lab Results 03/04/23 03/04/23 03/04/23 Range/Units 06:30 06:43 06:43 WBC 5.8 (3.8-10.6) k/uL RBC 4.63 (3.80-5.40) m/uL Hgb 13.0 (11.4-16.0) gm/dL Hct 42.9 (34.0-46.0) % MCV 92.5 (80.0-100.0) fL MCH 28.1 (25.0-35.0) pg MCHC 30.4 L (31.0-37.0) g/dL RDW 16.1 H (11.5-15.5) % Plt Count 245 (150-450) k/uL MPV 7.0 Neutrophils % 39 % Lymphocytes % 47 % Monocytes % 9 % Eosinophils % 2 % Basophils % 1 % Neutrophils # 2.2 (1.3-7.7) k/uL Lymphocytes # 2.7 (1.0-4.8) k/uL Monocytes # 0.5 (0-1.0) k/uL Eosinophils # 0.1 (0-0.7) k/uL Basophils # 0.0 (0-0.2) k/uL Hypochromasia Marked Anisocytosis Slight Sodium 136 L (137-145) mmol/L Potassium 4.8 (3.5-5.1) mmol/L Chloride 96 L (98-107) mmol/L Carbon Dioxide 29 (22-30) mmol/L Anion Gap 11 mmol/L BUN 17 (7-17) mg/dL Creatinine 0.84 (0.52-1.04) mg/dL Est GFR (CKD-EPI)AfAm 72 (>60 ml/min/1.73 sqM) Est GFR (CKD-EPI)NonAf 62 (>60 ml/min/1.73 sqM) Glucose 99 (74-99) mg/dL POC Glucose (mg/dL) 102 (70-110) mg/dL POC Glu Seasonal Driver ID Josesito Kaufman Calcium 9.4 (8.4-10.2) mg/dL Magnesium 2.2 (1.6-2.3) mg/dL Total Bilirubin 0.7 (0.2-1.3) mg/dL AST 33 (14-36) U/L ALT 16 (4-34) U/L Alkaline Phosphatase 52 (38-126) U/L Troponin I (0.000-0.034) ng/mL Total Protein 6.6 (6.3-8.2) g/dL Albumin 3.9 (3.5-5.0) g/dL 03/04/23 Range/Units 06:43 WBC (3.8-10.6) k/uL RBC (3.80-5.40) m/uL Hgb (11.4-16.0) gm/dL Hct (34.0-46.0) % MCV (80.0-100.0) fL MCH (25.0-35.0) pg MCHC (31.0-37.0) g/dL RDW (11.5-15.5) % Plt Count (150-450) k/uL MPV Neutrophils % % Lymphocytes % % Monocytes % % Eosinophils % % Basophils % % Neutrophils # (1.3-7.7) k/uL Lymphocytes # (1.0-4.8) k/uL Monocytes # (0-1.0) k/uL Eosinophils # (0-0.7) k/uL Basophils # (0-0.2) k/uL Hypochromasia Anisocytosis Sodium (137-145) mmol/L Potassium (3.5-5.1) mmol/L Chloride (98-107) mmol/L Carbon Dioxide (22-30) mmol/L Anion Gap mmol/L BUN (7-17) mg/dL Creatinine (0.52-1.04) mg/dL Est GFR (CKD-EPI)AfAm (>60 ml/min/1.73 sqM) Est GFR (CKD-EPI)NonAf (>60 ml/min/1.73 sqM) Glucose (74-99) mg/dL POC Glucose (mg/dL) (70-110) mg/dL POC Glu Seasonal Driver ID Calcium (8.4-10.2) mg/dL Magnesium (1.6-2.3) mg/dL Total Bilirubin (0.2-1.3) mg/dL AST (14-36) U/L ALT (4-34) U/L Alkaline Phosphatase (38-126) U/L Troponin I 0.012 (0.000-0.034) ng/mL Total Protein (6.3-8.2) g/dL Albumin (3.5-5.0) g/dL Critical Care Time Critical Care Time: Yes Total Critical Care Time: 35 Disposition Clinical Impression: Bradycardia, Lightheadedness Disposition: ADMITTED IP TO THIS HOSP Referrals: Tacos Saha MD [Primary Care Provider] - 1-2 days Time of Disposition: 08:34
--- NOTE | 2023-03-04 07:30 | XR ---
EXAMINATION TYPE: XR chest 2V DATE OF EXAM: 03/04/2023 COMPARISON: 02/14/2023 HISTORY: 88-year-old female with weakness TECHNIQUE: AP and lateral views FINDINGS: Heart borderline in size. Eventration anterior hemidiaphragm. Prominent appearance to the main right and left pulmonary arteries on the lateral and frontal views. Atherosclerotic calcifications througho ut the thoracic aorta. Interstitial prominence is similar. No holden consolidation or pleural effusion is seen. Cholecystectomy clips. IMPRESSION: 1. Borderline heart size. 2. 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 3. No definite acute process.
[2023-03-04 07:31] LABS: ALT 16 U/L (4-34); AST 33 U/L (14-36); African American GFR (CKD) 72 (>60 ml/min/1.73 sqM); Albumin 3.9 g/dL (3.5-5.0); Alkaline Phosphatase 52 U/L (38-126); Anion Gap 11 mmol/L; Blood Urea Nitrogen 17 mg/dL (7-17); Calcium 9.4 mg/dL (8.4-10.2); Carbon Dioxide 29 mmol/L (22-30); Chloride 96 mmol/L (98-107); Glucose 99 mg/dL (74-99); Magnesium 2.2 mg/dL (1.6-2.3); Non-African American GFR(CKD) 62 (>60 ml/min/1.73 sqM); Sodium 136 mmol/L (137-145); Total Bilirubin 0.7 mg/dL (0.2-1.3); Total Protein 6.6 g/dL (6.3-8.2)
[2023-03-04] MEDS ORDERED: ATROPINE SULFATE 0.1 MG/ML 10ML SYRINGE IV STA (07:42)
[2023-03-04 07:43] LABS: Potassium 4.8 mmol/L (3.5-5.1)
[2023-03-04 13:00] LABS: Appearance,Urine Cloudy (Clear); Bacteria,Urine Many /hpf; Bilirubin,Urine Negative (Negative); Blood,Urine Negative (Negative); Color,Urine Colorless; Glucose,Urine (UA) Negative (Negative); Ketones,Urine Negative (Negative); Leukocyte Esterase,Urine Negative (Negative); Mucus,Urine Rare /hpf; Nitrite,Urine Negative (Negative); Protein,Urine Negative (Negative); RBC,Urine <1 /hpf (0-5); Specific Gravity,Urine 1.005 (1.001-1.035); Squamous Epithelial Cell,Urine 11 /hpf (0-4); Urobilinogen,Urine <2.0 mg/dL (<2.0); WBC,Urine 1 /hpf (0-5)
[2023-03-04] MEDS ORDERED: ALBUTEROL NEBULIZED 2.5 MG/3 ML INHALATION PRN (14:28)
--- NOTE | 2023-03-04 14:28 | P.HPIM ---
History of Present Illness H&P Date: 03/04/23 History of present illness; Patient is a pleasant 88-year-old female with significant past medical history of stroke, seizures, bradycardia, atrial fibrillation, carotid endarterectomy, and hypertension brought to the ER for dizziness. Patient states she was all right this morning when she woke up to go to the restroom, while walking there she started feeling dizziness, she felt whole room was spinning around her. Patient didn't pass out. There was no complain of weakness of any extremity. no facial droop. Patient didn't fall. Patient tried to sit down and that improved her symptoms but as soon as she tried to get up she started feeling dizzy again. Because of these symptoms, patient was brought to the ER Initial lab work done in the ER showed WBC 5.8, hemoglobin 13, platelet count 245, sodium 136, potassium 4.8, carbon dioxide 29, BUN 17, creatinine 0.84 troponin 0.012 UA negative for any infection EKG done in the ER showed heart rate of 39 , no ST segment elevation or depression seen, no T-wave inversions seen. Chest x-ray done in the ER no definite acute process Because of significant bradycardia, patient was given a dose of atropine in the ER. Patient admitted to internal medicine service REVIEW OF SYSTEMS: CONSTITUTIONAL: As mentioned above HEENT: No recent visual problems or hearing problems. Denied any sore throat. CARDIOVASCULAR: No chest pain, orthopnea, PND, no palpitations, no syncope. PULMONARY: No shortness of breath, no cough, no hemoptysis. GASTROINTESTINAL: No diarrhea, no nausea, no vomiting, no abdominal pain. NEUROLOGICAL: As mentioned above HEMATOLOGICAL: Denies any bleeding or petechiae. GENITOURINARY: Denies any burning micturition, frequency, or urgency. MUSCULOSKELETAL/RHEUMATOLOGICAL: Denies any joint pain, swelling, or any muscle pain. ENDOCRINE: Denies any polyuria or polydipsia. The rest of the 14-point review of systems is negative. PHYSICAL EXAMINATION: GENERAL: The patient is alert and oriented x3, not in any acute distress. Well developed, well nourished. HEENT: Pupils are round and equally reacting to light. EOMI. No scleral icterus. No conjunctival pallor. Normocephalic, atraumatic. No pharyngeal erythema. No thyromegaly. CARDIOVASCULAR: S1 and S2 present. No murmurs, rubs, or gallops. Bradycardia PULMONARY: Chest is clear to auscultation, no wheezing or crackles. ABDOMEN: Soft, nontender, nondistended, normoactive bowel sounds. No palpable organomegaly. MUSCULOSKELETAL: No joint swelling or deformity. EXTREMITIES: No cyanosis, clubbing, or pedal edema. NEUROLOGICAL: Gross neurological examination did not reveal any focal deficits. SKIN: No rashes. Assessment and plan sinus bradycardia dizziness Paroxysmal atrial fibrillation CVA Significant carotid stenosis bilaterally per Doppler ultrasound Hypertension History of COPD with chronic hypoxic respiratory failure History of seizure disorder History of DVT Dyslipidemia Monitor vital signs Monitor CBC Monitor CMP Continue telemetry monitoring Trend troponins. Hold AV angela blocking agents Order atropine when necessary Fall precautions Resume home meds Consult cardiology Labs and medication were reviewed.. Continue same treatment. Continue with symptomatic treatment. Resume home medication. Monitor labs and vitals. DVT and GI prophylaxis. Further recommendations as per clinical course of the patient Dictation was produced using [employer] dictation software. please excuse any grammatical, word or spelling errors. 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,, emphysema; hypoglycemia, hx breast cancer, History of Any Multi-Drug Resistant Organisms: None Reported Past Surgical History: Back Surgery, Breast Surgery, Cholecystectomy, Heart Cat heterization Additional Past Surgical History / Comment(s): L SUBCLAVIAN ARTERY BYPASS, Rt CAROTID ENDARTECTOMY, rt breast lumpectomy Past Anesthesia/Blood Transfusion Reactions: No Reported Reaction Additional Past Anesthesia/Blood Transfusion Reaction / Comment(s): PT RECIEVED BLOOD TRANSFUSION Past Psychological History: Anxiety Smoking Status: Former smoker Past Alcohol Use History: None Reported Past Drug Use History: None Reported - Past Family History Brother(s) Family Medical History: Cancer Sister(s) Family Medical History: Cancer Mother Family Medical History: Coronary Artery Disease (CAD) Additional Family Medical History / Comment(s): enlarged heart Father Family Medical History: Coronary Artery Disease (CAD), CVA/TIA Medications and Allergies Home Medications Medication Instructions Recorded Confirmed Type Pravastatin Sodium [Pravachol] 40 mg PO DAILY 08/04/13 12/18/22 History Ferrous Sulfate [Iron (65 MG 325 mg PO DAILY 02/05/17 12/18/22 History Elemental)] Pantoprazole [Protonix] 40 mg PO DAILY 04/11/18 12/18/22 History Albuterol Inhaler [Ventolin Hfa 2 puff INHALATION RT-Q6H PRN 04/29/22 12/18/22 History Inhaler] Apixaban [Eliquis] 2.5 mg PO BID 04/29/22 12/18/22 History DULoxetine HCL [Cymbalta] 30 mg PO DAILY 04/29/22 12/18/22 History Denosumab [Prolia] 60 mg SQ Q180D 04/29/22 12/18/22 History Furosemide [Lasix] 20 mg PO DAILY 04/29/22 12/18/22 History Isosorbide Mononitrate ER [Imdur] 30 mg PO DAILY 04/29/22 12/18/22 History Melatonin 1 mg PO HS 04/29/22 12/18/22 History Cholecalciferol [Vitamin D3 (25 25 mcg PO DAILY 09/30/22 12/18/22 History Mcg = 1000 Iu)] Ascorbic Acid [Vitamin C] 500 mg PO DAILY 10/27/22 12/18/22 History Acetaminophen-Codeine 300-30mg 1 tab PO BID PRN #4 tab 12/28/22 Rx [Tylenol w/codeine #3] Clopidogrel [Plavix] 75 mg PO DAILY 30 Days #30 tab 12/28/22 Rx Losartan [Cozaar] 50 mg PO DAILY tab 12/28/22 Rx levETIRAcetam [Keppra] 500 mg PO DAILY 4 Days #4 tab 12/28/22 Rx Cephalexin [Keflex] 500 mg PO Q12HR 7 Days #14 cap 02/14/23 Rx Allergies Allergy/AdvReac Type Severity Reaction Status Date / Time No Known Allergies Allergy Verified 12/18/22 09:25 Physical Exam Vitals: Vital Signs Temp Pulse Resp BP Pulse Ox 03/04/23 14:10 45 L 18 143/68 96 03/04/23 12:15 98.6 F 44 L 18 134/86 97 03/04/23 11:09 57 L 17 159/61 100 03/04/23 10:32 53 L 20 134/89 95 03/04/23 10:30 89 18 85 L 03/04/23 10:00 53 L 18 108/54 92 L 03/04/23 09:53 97.8 F 51 L 17 106/60 95 03/04/23 08:08 68 17 93 L 03/04/23 08:00 98.5 F 41 L 16 119/61 92 L 03/04/23 07:30 39 L 03/04/23 06:19 98.3 F 54 L 16 103/55 93 L Intake and Output 03/03/23 03/04/23 03/04/23 22:59 06:59 14:59 Other: Weight 58.967 kg Results CBC & Chem 7: 03/04/23 06:43 03/04/23 06:43 Labs: Abnormal Lab Results - Last 24 Hours (Table) 03/04/23 03/04/23 03/04/23 Range/Units 06:43 06:43 12:29 MCHC 30.4 L (31.0-37.0) g/dL RDW 16.1 H (11.5-15.5) % Sodium 136 L (137-145) mmol/L Chloride 96 L (98-107) mmol/L Urine Appearance Cloudy H (Clear) Ur Squamous Epith Cells 11 H (0-4) /hpf Urine Bacteria Many H (None) /hpf Urine Mucus Rare H (None) /hpf
[2023-03-04] MEDS: ATORVASTATIN 10 MG TAB PO SCH (20:44)
[2023-03-04] MEDS: APIXABAN 2.5 MG TABLET PO SCH (20:45)
[2023-03-05 07:54] LABS: Anisocytosis Slight; HCT 47.8 % (34.0-46.0); HGB 14.5 gm/dL (11.4-16.0); Hypochromasia Marked; MCH 28.5 pg (25.0-35.0); MCHC 30.4 g/dL (31.0-37.0); MCV 93.9 fL (80.0-100.0); Mean Platelet Volume 6.9; Platelet Count 255 k/uL (150-450); WBC 6.9 k/uL (3.8-10.6)
[2023-03-05 08:06] LABS: ALT 16 U/L (4-34); AST 40 U/L (14-36); African American GFR (CKD) >90 (>60 ml/min/1.73 sqM); Albumin 3.9 g/dL (3.5-5.0); Alkaline Phosphatase 60 U/L (38-126); Anion Gap 9 mmol/L; Blood Urea Nitrogen 16 mg/dL (7-17); Calcium 9.5 mg/dL (8.4-10.2); Carbon Dioxide 29 mmol/L (22-30); Chloride 102 mmol/L (98-107); Glucose 82 mg/dL (74-99); Non-African American GFR(CKD) 79 (>60 ml/min/1.73 sqM); Sodium 140 mmol/L (137-145); Total Bilirubin 0.7 mg/dL (0.2-1.3); Total Protein 6.8 g/dL (6.3-8.2)
[2023-03-05 08:14] LABS: Potassium 4.9 mmol/L (3.5-5.1)
[2023-03-05] MEDS: PANTOPRAZOLE 40 MG TABLET PO SCH (08:17)
[2023-03-05] MEDS: CLOPIDOGREL 75 MG TAB PO SCH (08:17)
[2023-03-05] MEDS: ASCORBIC ACID 500 MG TAB PO SCH (08:17)
[2023-03-05] MEDS: CHOLECALCIFEROL 25 MCG (1000 IU) TABLET PO SCH (08:17)
[2023-03-05] MEDS: APIXABAN 2.5 MG TABLET PO SCH ×2 (08:18→21:02)
--- NOTE | 2023-03-05 11:09 | P.CRDCN ---
History of Present Illness History of present illness: HISTORY OF PRESENT ILLNESS: This is a 88-year-old female with a past medical history significant for paroxysmal atrial fibrillation, hypertension, hyperlipidemia, CVA, and carotid stenosis. Patient follows in the office with Dr. Lott. We have been asked to see the patient in consultation for symptomatic bradycardia. Patient examined at the bedside. Patient presented to the hospital with a chief complaint of lightheadedness and dizziness. The patient states that she felt as though she was going to pass out at home but denies ever losing consciousness. EKG c ompleted on arrival revealed sinus bradycardia with a heart rate in the 30s. At the time of examination she is maintaining sinus mechanism with a heart rate [place] [address] with a first-degree AV block. She currently denies any chest pain or pressure. She denies shortness of breath. She denies any dizziness or lightheadedness. Blood pressure this morning 166/81. The patient is not prescribed any AV angela blocking agents on an outpatient basis. * EKG reveals sinus bradycardia with a heart rate of 39 * Chest xray borderline heart size. Chronic changes including eventration anterior right hemidiaphragm and suspected underlying pulmonary arterial hypertension. No definite acute process. * Laboratory data: Troponin negative 2. * Most recent echocardiogram obtained in November 2022 revealed ejection fraction 55-60%, trace to mild MR, mild TR, mild pulmonary hypertension * Cardiac catheterization history: unknown REVIEW OF SYSTEMS: At the time of my exam: CONSTITUTIONAL: Denies fever or chills. HEENT: Denies blurred vision, vision changes, or eye pain. Denies hemoptysis CARDIOVASCULAR: Denies chest pain. Denies orthopnea. Denies PND. Denies palpitations RESPIRATORY: Denies shortness of breath. GASTROINTESTINAL: Denies abdominal pain. Denies nausea or vomiting. HEMATOLOGIC: Denies bleeding disorders. GENITOURINARY: Denies any blood in urine. SKIN: Denies pruitis. Denies rash. PHYSICAL EXAM: VITAL SIGNS: Reviewed. GENERAL: Well-developed in no acute distress. HEENT: Head is normocephalic. Pupils are equal, round. Sclerae anicteric. Mucous membranes of the mouth are moist. Neck supple. No JVD or thyromegaly LUNGS: Respirations even and unlabored. Lungs essentially clear to auscultation bilaterally. HEART: Regular rate and rhythm. S1 and S2 heard. ABDOMEN: Soft. Nondistended. Nontender. EXTREMITIES: Normal range of motion. No clubbing or cyanosis. Peripheral pulses intact. No lower extremity edema NEUROLOGIC: Awake and alert. Oriented x 3. 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 Signing provider agrees with the documented findings, assessment, and plan of care. 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,, emphysema; hypoglycemia, hx breast cancer, History of Any Multi-Drug Resistant Organisms: None Reported Past Surgical History: Back Surgery, Breast Surgery, Cholecystectomy, Heart Catheterization Additional Past Surgical History / Comment(s): L SUBCLAVIAN ARTERY BYPASS, Rt CAROTID ENDARTECTOMY, rt breast lumpectomy Past Anesthesia/Blood Transfusion Reactions: No Reported Reaction Additional Past Anesthesia/Blood Transfusion Reaction / Comment(s): PT RECIEVED BLOOD TRANSFUSION Past Psychological History: Anxiety Smoking Status: Former smoker Past Alcohol Use History: None Reported Past Drug Use History: None Reported - Past Family History Brother(s) Family Medical History: Cancer Sister(s) Family Medical History: Cancer Mother Family Medical History: Coronary Artery Disease (CAD) Additional Family Medical History / Comment(s): enlarged heart Father Family Medical History: Coronary Artery Disease (CAD), CVA/TIA Medications and Allergies Home Medications Medication Instructions Recorded Confirmed Type Pantoprazole [Protonix] 40 mg PO DAILY 04/11/18 03/04/23 History Albuterol Inhaler [Ventolin Hfa 2 puff INHALATION RT-Q6H PRN 04/29/22 03/04/23 History Inhaler] Apixaban [Eliquis] 2.5 mg PO BID 04/29/22 03/04/23 History DULoxetine HCL [Cymbalta] 30 mg PO DAILY 04/29/22 03/04/23 History Denosumab [Prolia] 60 mg SQ Q180D 04/29/22 03/04/23 History Furosemide [Lasix] 20 mg PO DAILY 04/29/22 03/04/23 History Isosorbide Mononitrate ER [Imdur] 30 mg PO DAILY 04/29/22 03/04/23 History Melatonin 5 mg PO HS 04/29/22 03/04/23 History Cholecalciferol [Vitamin D3 (25 25 mcg PO DAILY 09/30/22 03/04/23 History Mcg = 1000 Iu)] Ascorbic Acid [Vitamin C] 500 mg PO DAILY 10/27/22 03/04/23 History Acetaminophen-Codeine 300-30mg 1 tab PO BID PRN #4 tab 12/28/22 03/04/23 Rx [Tylenol w/codeine #3] Clopidogrel [Plavix] 75 mg PO DAILY 30 Days #30 tab 12/28/22 03/04/23 Rx Apple Cider Vinegar Chew 1 tab PO DAILY 03/04/23 03/04/23 History Atorvastatin [Lipitor] 10 mg PO HS 03/04/23 03/04/23 History Ferrous Sulfate [Feosol] 325 mg PO DAILY 03/04/23 03/04/23 History Pravastatin Sodium [Pravachol] 40 mg PO HS 03/04/23 03/04/23 History Allergies Allergy/AdvReac Type Severity Reaction Status Date / Time No Known Allergies Allergy Verified 03/04/23 14:25 Physical Exam Vitals: Vital Signs Temp Pulse Resp BP Pulse Ox 03/05/23 09:00 86 16 166/81 98 03/05/23 08:53 97 03/05/23 06:00 69 18 141/82 98 03/05/23 02:00 55 L 18 160/80 98 03/04/23 23:00 48 L 20 160/57 98 03/04/23 18:05 97.9 F 40 L 20 171/62 95 03/04/23 17:15 41 L 20 171/74 99 03/04/23 16:10 41 L 16 162/80 97 03/04/23 14:10 45 L 18 143/68 96 03/04/23 12:15 98.6 F 44 L 18 134/86 97 01/07/24 11:09 57 L 17 159/61 100 Intake and Output 03/04/23 03/05/23 03/05/23 22:59 06:59 14:59 Other: # Voids 1 # Bowel Movements 1 Results 03/05/23 06:35 03/05/23 06:35 Cardiac Enzymes 03/04/23 03/05/23 Range/Units 11:45 06:35 AST 40 H (14-36) U/L Troponin I <0.012 (0.000-0.034) ng/mL CBC 03/05/23 Range/Units 06:35 WBC 6.9 (3.8-10.6) k/uL RBC 5.10 (3.80-5.40) m/uL Hgb 14.5 (11.4-16.0) gm/dL Hct 47.8 H (34.0-46.0) % Plt Count 255 (150-450) k/uL Comprehensive Metabolic Panel 03/05/23 Range/Units 06:35 Sodium 140 (137-145) mmol/L Potassium 4.9 (3.5-5.1) mmol/L Chloride 102 (98-107) mmol/L Carbon Dioxide 29 (22-30) mmol/L BUN 16 (7-17) mg/dL Creatinine 0.66 (0.52-1.04) mg/dL Glucose 82 (74-99) mg/dL Calcium 9.5 (8.4-10.2) mg/dL AST 40 H (14-36) U/L ALT 16 (4-34) U/L Alkaline Phosphatase 60 (38-126) U/L Total Protein 6.8 (6.3-8.2) g/dL Albumin 3.9 (3.5-5.0) g/dL Current Medications Generic Name Dose Route Start Last Admin Trade Name Freq PRN Reason Stop Dose Admin Acetaminophen/Codeine Phosphate 1 each 03/04/23 14:28 Acetaminophen-Codeine 300-30mg Tab PO BID PRN Pain Albuterol Sulfate 2.5 mg 03/04/23 14:28 Albuterol Nebulized 2.5 Mg/3 Ml INHALATION RT-Q6H PRN Shortness Of Breath Apixaban 2.5 mg 03/04/23 21:00 03/05/23 08:18 Apixaban 2.5 Mg Tablet PO 2.5 mg BID JARETH Administration Protocol Ascorbic Acid 500 mg 03/05/23 09:00 03/05/23 08:17 Ascorbic Acid 500 Mg Tab PO 500 mg DAILY JARETH Administration Atorvastatin Calcium 10 mg 03/04/23 21:00 03/04/23 20:44 Atorvastatin 10 Mg Tab PO 10 mg HS JARETH Administration Cholecalciferol 25 mcg 03/05/23 09:00 03/05/23 08:17 Cholecalciferol 25 Mcg (1000 Iu) Tablet PO 25 mcg DAILY JARETH Administration Clopidogrel Bisulfate 75 mg 03/05/23 09:00 03/05/23 08:17 Clopidogrel 75 Mg Tab PO 75 mg DAILY JARETH Administration Pantoprazole Sodium 40 mg 03/05/23 07:30 03/05/23 08:17 Pantoprazole 40 Mg Tablet PO 40 mg [id number] JARETH Administration Intake and Output 03/04/23 03/05/23 03/05/23 22:59 06:59 14:59 Other: # Voids 1 # Bowel Movements 1 03/05/23 06:35 03/05/23 06:35
[2023-03-05] MEDS ORDERED: MECLIZINE 12.5 MG TAB PO PRN (18:55)
[2023-03-05] MEDS ORDERED: MECLIZINE 12.5 MG TAB PO STA (18:55)
--- NOTE | 2023-03-05 19:01 | P.PN ---
Subjective History of present illness; Patient is a pleasant 88-year-old female with significant past medical history of stroke, seizures, bradycardia, atrial fibrillation, carotid endarterectomy, and hypertension brought to the ER for dizziness. Patient states she was all right this morning when she woke up to go to the restroom, while walking there she started feeling dizziness, she felt whole room was spinning around her. Patient didn't pass out. There was no complain of weakness of any extremity. no facial droop. Patient didn't fall. Patient tried to sit down and that improved her symptoms but as soon as she tried to get up she started feeling dizzy again. Because of these symptoms, patient was brought to the ER Initial lab work done in the ER showed WBC 5.8, hemoglobin 13, platelet count 245, sodium 136, potassium 4.8, carbon dioxide 29, BUN 17, creatinine 0.84 troponin 0.012 UA negative for any infection EKG done in the ER showed heart rate of 39 , no ST segment elevation or depression seen, no T-wave inversions seen. Chest x-ray done in the ER no definite acute process Because of significant bradycardia, patient was given a dose of atropine in the ER. Patient admitted to internal medicine service 03/05/2023 She still complaining of from some dizziness she states mainly when she sits up, therefore we checked orthostatic vitals and they are not very impressive to be considered positive. Patient treated the vomiting improved and she could eat. No other new complaints Cardiology were evaluated the patient for possible presyncope secondary to tachycardia bradycardia syndrome to evaluate for possible pacemaker Keep monitoring for now, keep telemetry. She is already on eliquis 2.5 mg at home dose of Plavix Objective - Vital Signs Vital signs: Vital Signs Temp 98.6 F 03/05/23 11:28 Pulse 85 03/05/23 12:00 Resp 16 03/05/23 12:00 BP 135/78 03/05/23 12:00 Pulse Ox 95 03/05/23 12:00 FiO2 Intake & Output 03/04/23 03/05/23 03/05/23 18:59 06:59 18:59 Other: # Voids 1 # Bowel Movements 1 - Exam GENERAL: The patient is alert and oriented x3, not in any acute distress. Well developed, well nourished. HEENT: Pupils are round and equally reacting to light. EOMI. No scleral icterus. No conjunctival pallor. Normocephalic, atraumatic. No pharyngeal erythema. No thyromegaly. CARDIOVASCULAR: S1 and S2 present. No murmurs, rubs, or gallops. PULMONARY: Chest is clear to auscultation, no wheezing , no crackles. ABDOMEN: Soft, nontender, nondistended, normoactive bowel sounds. No palpable organomegaly. MUSCULOSKELETAL: No joint swelling or deformity. EXTREMITIES: No cyanosis, clubbing, or pedal edema. NEUROLOGICAL: Gross neurological examination did not reveal any focal deficits. SKIN: No rashes. no petechiae. - Labs CBC & Chem 7: 03/05/23 06:35 03/05/23 06:35 Labs: Abnormal Lab Results - Last 24 Hours (Table) 03/05/23 03/05/23 Range/Units 06:35 06:35 Hct 47.8 H (34.0-46.0) % MCHC 30.4 L (31.0-37.0) g/dL RDW 16.0 H (11.5-15.5) % AST 40 H (14-36) U/L Assessment and Plan Assessment: sinus tachy-bradycardia syndrome dizziness, nonspecific secondary to above Paroxysmal atrial fibrillation The vomiting, improved CVA Significant carotid stenosis bilaterally per Doppler ultrasound Hypertension History of COPD with chronic hypoxic respiratory failure History of seizure disorder History of DVT Dyslipidemia Plan: Continue with telemetry monitoring No IV fluids Encourage eating and drinking Cardiology consult on the case , we will evaluate for possible need for pacemaker continue with Eliquis Labs and medication were reviewed.. Continue same treatment. Continue with symptomatic treatment. Resume home medication. Monitor labs and vitals. DVT and GI prophylaxis. Further recommendations as per clinical course of the patient DVT prophylaxis: Eliquis GI Prophylaxis: Ppi PT/OT: Pending Prognosis is guarded
[2023-03-05] MEDS: ATORVASTATIN 10 MG TAB PO SCH (21:02)
[2023-03-05] MEDS ORDERED: HALOPERIDOL LACTATE 5 MG/ML 1 ML VIAL IM STA (23:12)
[2023-03-06] MEDS: Acetaminophen-Codeine 300-30mg TAB PO PRN (01:58)
[2023-03-06] MEDS: PANTOPRAZOLE 40 MG TABLET PO SCH (06:19)
[2023-03-06] MEDS ORDERED: amLODIPine 5 MG TAB PO SCH (09:30)
[2023-03-06] MEDS: APIXABAN 2.5 MG TABLET PO SCH ×2 (09:35→21:11)
[2023-03-06] MEDS: CLOPIDOGREL 75 MG TAB PO SCH (09:35)
[2023-03-06] MEDS: ASCORBIC ACID 500 MG TAB PO SCH (09:35)
[2023-03-06] MEDS: CHOLECALCIFEROL 25 MCG (1000 IU) TABLET PO SCH (09:35)
--- NOTE | 2023-03-06 11:13 | CA ---
Transthoracic Echo Report Name: Kate Medrano Age: 88 Gender: F : 1935 Exam Date: 03/06/2023 08:29 Exam Location: [facility] Ht (in): 65 Wt (lb): 130 Ordering Physician: Darshana Bentley Attending/Referring Phys: [id number], [employer] Melita Smith, RAMSEY Procedure CPT: Indications: LV function, bradycardia Cardiac Hx: limited study Technical Quality: Good Contrast 1: Total Dose (mL): Contrast 2: Total Dose (mL): MEASUREMENTS (Male / Female) Normal Values 2D ECHO RV Internal Dim ED PLAX 2.9 cm DOPPLER AV Peak Velocity 100.4 cm/s AV Peak Gradient 4.0 mmHg TR Peak Velocity 272.7 cm/s TR Peak Gradient 29.7 mmHg Right Ventricular Systolic Press 34.7 mmHg FINDINGS Left Ventricle Left ventricular ejection fraction is estimated at 60-65 %. Right Ventricle Mild pulmonary hypertension. Right Atrium Left Atrium Mitral Valve Structurally normal mitral valve. No mitral stenosis, regurgitation or prolapse. Aortic Valve Trileaflet aortic valve. No aortic valve stenosis or regurgitation. Tricuspid Valve Structurally normal tricuspid valve. Mild tricuspid regurgitation. Pulmonic Valve Pericardium No pericardial effusion. Aorta CONCLUSIONS Normal LV function Previewed by: Dr. Len Lott MD (Electronically Signed) Final Date: 06 March 2023 11:12
--- NOTE | 2023-03-06 13:16 | P.PN ---
Subjective HISTORY OF PRESENT ILLNESS: This is a 88-year-old female with a past medical history significant for paroxysmal atrial fibrillation, hypertension, hyperlipidemia, CVA, and carotid stenosis. Patient follows in the office with Dr. Lott. We have been asked to see the patient in consultation for symptomatic bradycardia. Patient examined at the bedside. Patient presented to the hospital with a chief complaint of lightheadedness and dizziness. The patient states that she felt as though she was going to pass out at home but denies ever losing consciousness. EKG completed on arrival revealed sinus bradycardia with a heart rate in the 30s. At the time of examination she is maintaining sinus mechanism [place] [address] with a first-degree AV block. She currently denies any chest pain or pressure. She denies shortness of breath. She denies any dizziness or lightheadedness. Blood pressure this morning 166/81. The patient is not prescribed any AV angela blocking agents on an outpatient basis. * EKG reveals sinus bradycardia with a heart rate of 39 * Chest xray borderline heart size. Chronic changes including eventration anterior right hemidiaphragm and suspected underlying pulmonary arterial hy pertension. No definite acute process. * Laboratory data: Troponin negative 2. * Most recent echocardiogram obtained in November 2022 revealed ejection fraction 55-60%, trace to mild MR, mild TR, mild pulmonary hypertension * Cardiac catheterization history: unknown 03/06/2023 Patient examined this morning at the bedside. Patient is confused on examination. She denies chest pain or pressure. She denies shortness of breath. Telemetry reveals sinus mechanism with a heart rate in the 90s. No further episodes of bradycardia noted. Echocardiogram completed revealing ejection fraction 60-65% with mild TR PHYSICAL EXAM: VITAL SIGNS: Reviewed. GENERAL: Well-developed in no acute distress. HEENT: Head is normocephalic. Pupils are equal, round. Sclerae anicteric. Mucous membranes of the mouth are moist. Neck supple. No JVD or thyromegaly LUNGS: Respirations even and unlabored. Lungs essentially clear to auscultation bilaterally. HEART: Regular rate and rhythm. S1 and S2 heard. ABDOMEN: Soft. Nondistended. Nontender. EXTREMITIES: Normal range of motion. No clubbing or cyanosis. Peripheral pulses intact. No lower extremity edema NEUROLOGIC: Awake and alert. Oriented x 3. 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 May increase to 10mg if needed. Will defer to internal medicine. Continue additional cardiac medications Patient is stable for discharge home today from a cardiac standpoint We will consider outpatient event monitor if patient's mental status improves We will sign off. Please reconsult if needed. Nurse practitioner note has been reviewed by physician. Signing provider agrees with the documented findings, assessment, and plan of care. Objective - Vital Signs Vital signs: Vital Signs Temp 98.1 F 03/06/23 09:27 Pulse 72 03/06/23 11:38 Resp 18 03/06/23 11:38 BP 167/75 03/06/23 11:38 Pulse Ox 100 03/06/23 11:38 FiO2 Intake & Output 03/05/23 03/06/23 03/06/23 18:59 06:59 18:59 Intake Total 0 Balance 0 Weight 58.967 kg Intake: Oral 0 Other: Voiding Method Bedside Commode External Catheter # Voids 1 # Bowel Movements 1 1 - Labs CBC & Chem 7: 03/05/23 06:35 03/05/23 06:35
--- NOTE | 2023-03-06 17:37 | CT ---
EXAMINATION TYPE: CT brain wo con CT DLP: 1167.4 mGycm, Automated exposure control for dose reduction was used. DATE OF EXAM: 03/06/2023 5:11 PM COMPARISON: 02/14/2023.. CLINICAL INDICATION:Female, 88 years old with history of confusion, ams, confusion TECHNIQUE: Brain: Axial CT images of the brain were obtained with coronal and sagittal reformats created and rev iewed. Contrast used: None. Oral contrast used: None. FINDINGS: Brain: Extra-axial spaces: No abnormal extra-axial fluid collections. Ventricular system: Dilatation in proportion to cerebral atrophy. Cerebral parenchyma: Encephalomalacia of the right frontal lobe similar prior. Cerebral atrophy. No a cute intraparenchymal hemorrhage or mass effect. The smallwood-white junction is well differentiated. Sca ttered hypoattenuating areas are seen within the white matter. Cerebellum: Encephalomalacia of the left cerebral hemisphere similar to prior. Mass effect: No evidence of midline shift. Intracranial vasculature: Atherosclerotic calcifications of the intracranial vessels. Soft tissues: Normal. Calvarium/osseous structures: No depressed skull fracture. Paranasal sinuses and mastoid air cells: Mild scattered paranasal sinus disease. Visualized orbits: Bilaterally aphakia. IMPRESSION: 1. No acute intracranial process. 2. Remote injury to the right frontal lobe and left superior cerebellar hemisphere 3.
[2023-03-06] MEDS: ATORVASTATIN 10 MG TAB PO SCH (21:11)
--- NOTE | 2023-03-07 00:01 | P.PN ---
Subjective History of present illness; Patient is a pleasant 88-year-old female with significant past medical history of stroke, seizures, bradycardia, atrial fibrillation, carotid endarterectomy, and hypertension brought to the ER for dizziness. Patient states she was all right this morning when she woke up to go to the restroom, while walking there she started feeling dizziness, she felt whole room was spinning around her. Patient didn't pass out. There was no complain of weakness of any extremity. no facial droop. Patient didn't fall. Patient tried to sit down and that improved her symptoms but as soon as she tried to get up she started feeling dizzy again. Because of these symptoms, patient was brought to the ER Initial lab work done in the ER showed WBC 5.8, hemoglobin 13, platelet count 245, sodium 136, potassium 4.8, carbon dioxide 29, BUN 17, creatinine 0.84 troponin 0.012 UA negative for any infection EKG done in the ER showed heart rate of 39 , no ST segment elevation or depression seen, no T-wave inversions seen. Chest x-ray done in the ER no definite acute process Because of significant bradycardia, patient was given a dose of atropine in the ER. Patient admitted to internal medicine service 03/05/2023 She still complaining of from some dizziness she states mainly when she sits up, therefore we checked orthostatic vitals and they are not very impressive to be considered positive. Patient treated the vomiting improved and she could eat. No other new complaints Cardiology were evaluated the patient for possible presyncope secondary to tachycardia bradycardia syndrome to evaluate for possible pacemaker Keep monitoring for now, keep telemetry. She is already on eliquis 2.5 mg at home dose of Plavix 03/06/2023 Patient clinically doing better She's awake looks comfortable denies any headache or dizziness to me. She denies any other complaints and she wants to go home. Cardiology monitored her for bradycardia, tachycardia syndrome, heart rate remained stable and patient is symptomatic and imaging manager to her for discharge I talked to the son Mr. Mtz [phone] and I discussed the case with him, he has some concerns regarding her perfusion CAT scan of the brain obtained showing remote infarcts which may contributed to some elements of mammary problem on possible vascular dementia, this can be as sessed as an outpatient, this could be exacerbated by patient delirium due to being in hospital and other medical problems. Including uncontrolled hypertension, Patient already started on Norvasc 5 mg a day, going to increase the dose to 10 mg tomorrow and keep monitoring Patient can be downgraded to the general medical floor and this was discussed with the bedside nurse. Review of systems CONSTITUTIONAL: No fever, no malaise, no fatigue. HEENT: No recent visual problems or hearing problems. Denied any sore throat. CARDIOVASCULAR: No orthopnea, PND, no palpitations, no syncope. PULMONARY: No shortness of breath, no cough, no hemoptysis. GASTROINTESTINAL: No diarrhea, no nausea, no vomiting, no abdominal pain. Normoactive bowel sounds. NEUROLOGICAL: No headaches, no weakness, no numbness. Active Medications Generic Name Dose Route Start Last Admin Trade Name Freq PRN Reason Stop Dose Admin Acetaminophen/Codeine Phosphate 1 each 03/04/23 14:28 03/06/23 01:58 Acetaminophen-Codeine 300-30mg Tab PO 1 each BID PRN Administration Pain Albuterol Sulfate 2.5 mg 03/04/23 14:28 Albuterol Nebulized 2.5 Mg/3 Ml INHALATION RT-Q6H PRN Shortness Of Breath Amlodipine Besylate 10 mg 03/07/23 09:00 Amlodipine 10 Mg Tab PO DAILY JARETH Apixaban 2.5 mg 03/04/23 21:00 03/06/23 21:11 Apixaban 2.5 Mg Tablet PO 2.5 mg BID JARETH Administration Protocol Ascorbic Acid 500 mg 03/05/23 09:00 03/06/23 09:35 Ascorbic Acid 500 Mg Tab PO 500 mg DAILY JARETH Administration Atorvastatin Calcium 10 mg 03/04/23 21:00 03/06/23 21:11 Atorvastatin 10 Mg Tab PO 10 mg HS JARETH Administration Cholecalciferol 25 mcg 03/05/23 09:00 03/06/23 09:35 Cholecalciferol 25 Mcg (1000 Iu) Tablet PO 25 mcg DAILY JARETH Administration Clopidogrel Bisulfate 75 mg 03/05/23 09:00 03/06/23 09:35 Clopidogrel 75 Mg Tab PO 75 mg DAILY JARETH Administration Meclizine HCl 12.5 mg 03/05/23 18:55 Meclizine 12.5 Mg Tab PO TID PRN Vertigo Pantoprazole Sodium 40 mg 03/05/23 07:30 03/06/23 06:19 Pantoprazole 40 Mg Tablet PO Not [facility] Objective - Vital Signs Vital signs: Vital Signs Temp 98.1 F 03/06/23 09:27 Pulse 84 03/06/23 09:27 Resp 18 03/06/23 09:27 BP 192/76 03/06/23 09:27 Pulse Ox 98 03/06/23 09:27 FiO2 Intake & Output 03/05/23 03/06/23 03/06/23 18:59 06:59 18:59 Intake Total 0 Balance 0 Weight 58.967 kg Intake: Oral 0 Other: Voiding Method Bedside Commode External Catheter # Voids 1 # Bowel Movements 1 1 - Exam GENERAL: The patient is alert and oriented x3, not in any acute distress. Well developed, well nourished. HEENT: Pupils are round and equally reacting to light. EOMI. No scleral icterus. No conjunctival pallor. Normocephalic, atraumatic. No pharyngeal erythema. No thyromegaly. CARDIOVASCULAR: S1 and S2 present. No murmurs, rubs, or gallops. PULMONARY: Chest is clear to auscultation, no wheezing , no crackles. ABDOMEN: Soft, nontender, nondistended, normoactive bowel sounds. No palpable organomegaly. MUSCULOSKELETAL: No joint swelling or deformity. EXTREMITIES: No cyanosis, clubbing, or pedal edema. NEUROLOGICAL: Gross neurological examination did not reveal any focal deficits. SKIN: No rashes. no petechiae. - Labs CBC & Chem 7: 03/05/23 06:35 03/05/23 06:35 Assessment and Plan Assessment: sinus tachy-bradycardia syndrome, currently stable and cleared by imaging manager dizziness, nonspecific secondary to above. Resolved Paroxysmal atrial fibrillation The vomiting, improved memory problem, rule out vascular dementia as an outpatient CVA Significant carotid stenosis bilaterally per Doppler ultrasound Hypertension History of COPD with chronic hypoxic respiratory failure History of seizure disorder History of DVT Dyslipidemia Plan: Patient cleared for discharge by imaging manager Controlled blood pressure, increase Norvasc to 10 mg daily Computed tomography scan of the brain reviewed No IV fluids Encourage eating and drinking continue with Eliquis Labs and medication were reviewed.. Continue same treatment. Continue with symptomatic treatment. Resume home medication. Monitor labs and vitals. DVT and GI prophylaxis. Further recommendations as per clinical course of the patient DVT prophylaxis: Eliquis GI Prophylaxis: Ppi Prognosis is guarded
[2023-03-07] MEDS ORDERED: amLODIPine 5 MG TAB PO STA (03:57)
[2023-03-07] MEDS: PANTOPRAZOLE 40 MG TABLET PO SCH (06:00)
[2023-03-07] MEDS ORDERED: carvediloL 3.125 MG TAB PO SCH (07:30)
[2023-03-07] MEDS: amLODIPine 10 MG TAB PO SCH (09:02)
[2023-03-07] MEDS: CLOPIDOGREL 75 MG TAB PO SCH (09:02)
[2023-03-07] MEDS: CHOLECALCIFEROL 25 MCG (1000 IU) TABLET PO SCH (09:02)
[2023-03-07] MEDS: ASCORBIC ACID 500 MG TAB PO SCH (09:02)
[2023-03-07] MEDS: APIXABAN 2.5 MG TABLET PO SCH ×2 (09:02→20:57)
--- NOTE | 2023-03-07 14:34 | P.PN ---
Subjective Progress Note Date: 03/07/23 Patient is a pleasant 88-year-old female with significant past medical history of stroke, seizures, bradycardia, atrial fibrillation, carotid endarterectomy, and hypertension brought to the ER for dizziness. Patient states she was all right this morning when she woke up to go to the restroom, while walking there she started feeling dizziness, she felt whole room was spinning around her. Patient didn't pass out. There was no complain of weakness of any extremity. no facial droop. Patient didn't fall. Patient tried to sit down and that improved her symptoms but as soon as she tried to get up she started feeling dizzy again. Because of these symptoms, patient was brought to the ER Initial lab work done in the ER showed WBC 5.8, hemoglobin 13, platelet count 245, sodium 136, potassium 4.8, carbon dioxide 29, BUN 17, creatinine 0.84 troponin 0.012 UA negative for any infection EKG done in the ER showed heart rate of 39 , no ST segment elevation or depression seen, no T-wave inversions seen. Chest x-ray done in the ER no definite acute process Because of significant bradycardia, patient was given a dose of atropine in the ER. Patient admitted to internal medicine service 03/05/2023 She still complaining of from some dizziness she states mainly when she sits up, therefore we checked orthostatic vitals and they are not very impressive to be considered positive. Patient treated the vomiting improved and she could eat. No other new complaints Cardiology were evaluated the patient for possible presyncope secondary to tachycardia bradycardia syndrome to evaluate for possible pacemaker Keep monitoring for now, keep telemetry. She is already on eliquis 2.5 mg at home dose of Plavix 03/06/2023 Patient clinically doing better She's awake looks comfortable denies any headache or dizziness to me. She denies any other complaints and she wants to go home. Cardiology monitored her for bradycardia, tachycardia syndrome, heart rate remained stable and patient is symptomatic and slot service specialist to her for discharge I talked to the son Mr. Mtz [phone] and I discussed the case with him, he has some concerns regarding her perfusion CAT scan of the brain obtained showing remote infarcts which may contributed to some elements of mammary problem on possible vascular dementia, this can be assessed as an outpatient, this could be exacerbated by patient delirium due to being in hospital and other medical problems. Including uncontrolled hypertension, Patient already started on Norvasc 5 mg a day, going to increase the dose to 10 mg tomorrow and keep monitoring Patient can be downgraded to the general medical floor and this was discussed with the bedside nurse. 03/07. Patient seen and examined. Still complaining of lethargy and weakness. Vital signs stable REVIEW OF SYSTEMS: CONSTITUTIONAL: No fever, no malaise,. CARDIOVASCULAR: No chest pain, no palpitations, no syncope. PULMONARY: No shortness of breath, no cough, GASTROINTESTINAL: No diarrhea, no nausea, no vomiting, no abdominal pain. NEUROLOGICAL: No headaches, no weakness, PHYSICAL EXAMINATION: GENERAL: The patient is alert and oriented x3, not in any acute distress. Well developed, well nourished. HEENT: Pupils are round and equally reacting to light. EOMI. No scleral icterus. No conjunctival pallor. Normocephalic, atraumatic. No pharyngeal erythema. No thyromegaly. CARDIOVASCULAR: S1 and S2 present. No murmurs, rubs, or gallops. PULMONARY: Chest is clear to auscultation, no wheezing or crackles. ABDOMEN: Soft, nontender, nondistended, normoactive bowel sounds. No palpable organomegaly. MUSCULOSKELETAL: No joint swelling or deformity. EXTREMITIES: No cyanosis, clubbing, or pedal edema. NEUROLOGICAL: Gross neurological examination did not reveal any focal deficits. SKIN: No rashes. Assessment and plan sinus tachy-bradycardia syndrome, currently stable and cleared by slot service specialist dizziness, nonspecific secondary to above. Resolved Paroxysmal atrial fibrillation The vomiting, improved memory problem, rule out vascular dementia as an outpatient CVA Significant carotid stenosis bilaterally per Doppler ultrasound Hypertension History of COPD with chronic hypoxic respiratory failure History of seizure disorder History of DVT Dyslipidemia Plan: Monitor vital signs and monitor CBC Monitor CMP Continue Norvasc to 10 mg daily continue with Eliquis Cardiology following Labs and medication were reviewed.. Continue same treatment. Continue with symptomatic treatment. Resume home medication. Monitor labs and vitals. DVT and GI prophylaxis. Further recommendations as per clinical course of the patient Dictation was produced using [email or web address] dictation software. please excuse any gram matical, word or spelling errors. Objective - Vital Signs Vital signs: Vital Signs Temp 97.9 F 03/07/23 08:58 Pulse 97 03/07/23 08:58 Resp 16 03/07/23 08:58 BP 141/86 03/07/23 08:58 Pulse Ox 97 03/07/23 08:58 FiO2 Intake & Output 03/06/23 03/07/23 03/07/23 18:59 06:59 18:59 Intake Total 110 0 Output Total 400 500 Balance 110 -400 -500 Intake: Oral 110 0 Output: Urine 400 500 Other: Voiding Method Bedside Commode Bedside Commode External Catheter External Catheter # Voids 2 - Labs CBC & Chem 7: 03/05/23 06:35 03/05/23 06:35
[2023-03-07] MEDS: ATORVASTATIN 10 MG TAB PO SCH (20:57)
[2023-03-08] MEDS: PANTOPRAZOLE 40 MG TABLET PO SCH (06:17)
[2023-03-08] MEDS: ASCORBIC ACID 500 MG TAB PO SCH (09:26)
[2023-03-08] MEDS: CLOPIDOGREL 75 MG TAB PO SCH (09:26)
[2023-03-08] MEDS: CHOLECALCIFEROL 25 MCG (1000 IU) TABLET PO SCH (09:26)
[2023-03-08] MEDS: amLODIPine 10 MG TAB PO SCH (09:27)
[2023-03-08] MEDS: APIXABAN 2.5 MG TABLET PO SCH ×2 (09:27→20:13)
[2023-03-08 17:25] LABS: African American GFR (CKD) 79 (>60 ml/min/1.73 sqM); Anion Gap 9 mmol/L; Blood Urea Nitrogen 19 mg/dL (7-17); Calcium 9.4 mg/dL (8.4-10.2); Carbon Dioxide 25 mmol/L (22-30); Chloride 102 mmol/L (98-107); Glucose 98 mg/dL (74-99); Non-African American GFR(CKD) 68 (>60 ml/min/1.73 sqM); Sodium 136 mmol/L (137-145)
[2023-03-08] MEDS: SODIUM CHLORIDE 0.9% 1,000 ML IV SCH ×4 (18:15→20:13)
[2023-03-08] MEDS: ATORVASTATIN 10 MG TAB PO SCH (20:14)
--- NOTE | 2023-03-08 22:01 | P.PN ---
Subjective Progress Note Date: 03/08/23 Patient is evaluated today on the cardiac unit. No acute complaints, not wanting to go to rehab. Family will take patient back home when medically cleared. Patient has been cleared by cardiology recommending of AV angela blocking agents for the likely tachy-iraj syndrome. Also event monitor recommended as outpatient. Brain CT did show remote infarcts. Has hx of carotid stenosis bilaterally. Had been seen by vascular surgery back in November for the carotid stenosis and at that time patient and family have recommended against any surgical intervention. Labs today showing sodium of 136, BUN 19, creatinine 0.78, potassium 5.0. Hemodynamically she is stable. Review of Systems Constitutional: Denied any fatigue denied any fever. Cardio vascular: denied any chest pain, palpitations Gastrointestinal: denied any nausea, vomiting, diarrhea Pulmonary: Denied any shortness of breath cough Neurologic denied any new focal deficits All inpatient medications were reviewed and appropriate changes in these medications as dictated in the interval history and assessment and plan. PHYSICAL EXAMINATION: GENERAL: The patient is alert and oriented x3, not in any acute distress. Well developed, well nourished. HEENT: Pupils are round and equally reacting to light. EOMI. No scleral icterus. No conjunctival pallor. Normocephalic, atraumatic. No pharyngeal erythema. No thyromegaly. CARDIOVASCULAR: S1 and S2 present. No murmurs, rubs, or gallops. PULMONARY: Chest is clear to auscultation, no wheezing or crackles. ABDOMEN: Soft, nontender, nondistended, normoactive bowel sounds. No palpable organomegaly. MUSCULOSKELETAL: No joint swelling or deformity. EXTREMITIES: No cyanosis, clubbing, or pedal edema. NEUROLOGICAL: Gross neurological examination did not reveal any focal deficits. SKIN: No rashes. Assessment Sinus tachy-bradycardia syndrome, currently stable and cleared by harp action assembler recommending to remain off AV angela blocking agents Dizziness, nonspecific secondary to above. Resolved Paroxysmal atrial fibrillation anticoagulated with eliqus Vomiting has improved. Memory problem, rule out vascular dementia as an outpatient Hx of stroke with brain CT showing remote infarct. Significant carotid stenosis found back in NOV, patient and family refused surgical intervention at that time and opted for medical treatment patient continues on DAP with plavix and low dose eliquis Hx of right carotid endartectomy per medical history Hypertension History of COPD with chronic hypoxic respiratory failure History of seizure disorder History of DVT Dyslipidemia GI prophylaxis DVT prophylaxis Plan Continue dual antiplatelet therapy with plavix and low dose eliquis Patient to remain off AV angela blocking agents Continue on loasartan Will follow up with cardiology o.p for possible event monitor Family does not want rehab wants home with HC and supervision. Possible D/C in the next 24 hours Nursing reports decreased urine output will given fluids overnight repeat labs in the AM. The impression and plan of care has been dictated by Aundrea Pompa, Nurse Practitioner as directed. Dr. Vaibhav MD I have performed a history and physical examination and medical decision making of this patient, discussed the same with the dictator, and agree with the dictators assessment and plan as written, documented as a scribe. Based on total visit time, I have performed more than 50% of this visit. Objective - Vital Signs Vital signs: Vital Signs Temp 98.0 F 03/08/23 03:50 Pulse 53 L 03/08/23 12:00 Resp 16 03/08/23 08:00 BP 125/67 03/08/23 12:00 Pulse Ox 99 03/08/23 12:00 FiO2 Intake & Output 03/07/23 03/08/23 03/08/23 18:59 06:59 18:59 Intake Total 110 120 Output Total 500 130 Balance -390 -130 120 Intake: Oral 110 120 Output: Urine 500 130 Other: Voiding Method Bedside Commode External Catheter External Catheter External Catheter # Voids 2 1 - Labs CBC & Chem 7: 03/05/23 06:35 03/08/23 16:45 Assessment and Plan Time with Patient: Less than 30
[2023-03-09] MEDS: SODIUM CHLORIDE 0.9% 1,000 ML IV SCH ×2 (04:10→19:25)
[2023-03-09] MEDS: PANTOPRAZOLE 40 MG TABLET PO SCH (06:29)
[2023-03-09 08:13] VITALS: TEMP 97.6
[2023-03-09] MEDS: APIXABAN 2.5 MG TABLET PO SCH ×2 (08:56→20:21)
[2023-03-09] MEDS: amLODIPine 10 MG TAB PO SCH (08:56)
[2023-03-09] MEDS: ASCORBIC ACID 500 MG TAB PO SCH (08:57)
[2023-03-09] MEDS: CLOPIDOGREL 75 MG TAB PO SCH (08:57)
[2023-03-09] MEDS: CHOLECALCIFEROL 25 MCG (1000 IU) TABLET PO SCH (08:57)
[2023-03-09 10:15] VITALS: BMI 21.6
[2023-03-09] MEDS: ATORVASTATIN 10 MG TAB PO SCH (20:21)
--- NOTE | 2023-03-09 22:48 | P.PN ---
Subjective Progress Note Date: 03/09/23 Patient is evaluated today on the cardiac unit. No acute complaints, not wanting to go to rehab. Family will take patient back home when medically cleared. Patient has been cleared by cardiology recommending of AV angela blocking agents for the likely tachy-iraj syndrome. Also event monitor recommended as outpatient. Brain CT did show remote infarcts. Has hx of carotid stenosis bilaterally. Had been seen by vascular surgery back in November for the carotid stenosis and at that time patient and family have recommended against any surgical intervention. Labs today showing sodium of 136, BUN 19, creatinine 0.78, potassium 5.0. Hemodynamically she is stable. 03/09/2023 Patient is evaluated today sitting up in bed. No acute complaints. Discussed discharge planning. Patient does live alone next door to her son who helps care for her. Family has denied rehab although patient was recommended to discharge to [facility]. Now family has concerns with patient coming home and also concerned that her mentation does not appear at baseline. Cardiology has cleared recommending to f/u outpatient and may require event monitor. Would recommend neurology consultation at this time. Review of Systems Constitutional: Denied any fatigue denied any fever. Cardio vascular: denied any chest pain, palpitations Gastrointestinal: denied any nausea, vomiting, diarrhea Pulmonary: Denied any shortness of breath cough Neurologic denied any new focal deficits All inpatient medications were reviewed and appropriate changes in these medications as dictated in the interval history and assessment and plan. PHYSICAL EXAMINATION: GENERAL: The patient is alert and oriented x3, not in any acute distress. Well developed, well nourished. HEENT: Pupils are round and equally reacting to light. EOMI. No scleral icterus. No conjunctival pallor. Normocephalic, atraumatic. No pharyngeal erythema. No thyromegaly. CARDIOVASCULAR: S1 and S2 present. No murmurs, rubs, or gallops. PULMONARY: Chest is clear to auscultation, no wheezing or crackles. ABDOMEN: Soft, nontender, nondistended, normoactive bowel sounds. No palpable organomegaly. MUSCULOSKELETAL: No joint swelling or deformity. EXTREMITIES: No cyanosis, clubbing, or pedal edema. NEUROLOGICAL: Gross neurological examination did not reveal any focal deficits. SKIN: No rashes. Assessment Sinus tachy-bradycardia syndrome, currently stable and cleared by fan engine engineer recommending to remain off AV angela blocking agents Altered mental status per family patient is not at baseline possibility of hospital acquired delirium rule out stroke/TIA and neurology has been consulted for further evaluation. Dizziness, nonspecific secondary to above. Resolved Paroxysmal atrial fibrillation anticoagulated with eliqus Vomiting has improved. Memory problem, rule out vascular dementia as an outpatient Hx of stroke with brain CT showing remote infarct. Significant carotid stenosis found back in OCT, patient and family refused marcus rgical intervention at that time and opted for medical treatment patient continues on DAP with plavix and low dose eliquis Hx of right carotid endartectomy per medical history Hypertension History of COPD with chronic hypoxic respiratory failure History of seizure disorder History of DVT Dyslipidemia GI prophylaxis DVT prophylaxis Plan Continue dual antiplatelet therapy with plavix and low dose eliquis Patient to remain off AV angela blocking agents Continue on losartan Will follow up with cardiology o.p for possible event monitor Family does not want rehab wants home with HC and supervision. Possible D/C in the next 24 hours Continue IV fluids overnight. Discharge has been held due to family concerns of weakness and confusion and neurology has been consulted may need reevaluation by PT and discussion with family regarding rehab. The impression and plan of care has been dictated by Aundrea Pompa, Nurse Practitioner as directed. Dr. Vaibhav MD I have performed a history and physical examination and medical decision making of this patient, discussed the same with the dictator, and agree with the dictators assessment and plan as written, documented as a scribe. Based on total visit time, I have performed more than 50% of this visit. Objective - Vital Signs Vital signs: Vital Signs Temp 97.6 F 03/09/23 07:58 Pulse 70 03/09/23 20:18 Resp 16 03/09/23 20:18 BP 139/63 03/09/23 20:18 Pulse Ox 100 03/09/23 20:18 FiO2 Intake & Output 03/09/23 03/09/23 03/10/23 06:59 18:59 06:59 Intake Total 222 972 Output Total 350 Balance -128 972 Weight 58.967 kg Intake: IV 750 Sodium Chloride 0.9% 1, 750 000 ml @ 75 mls/hr IV . [id number] JARETH Rx#:[id number] Oral 222 222 Output: Urine 350 Other: Voiding Method External Catheter External Catheter External Catheter # Voids 1 - Labs CBC & Chem 7: 03/05/23 06:35 03/08/23 16:45 Assessment and Plan Time with Patient: Less than 30
[2023-03-10 02:09] VITALS: RESP 18
[2023-03-10] MEDS: Acetaminophen-Codeine 300-30mg TAB PO PRN (02:22)
[2023-03-10] MEDS: PANTOPRAZOLE 40 MG TABLET PO SCH (06:19)
[2023-03-10] MEDS: ASCORBIC ACID 500 MG TAB PO SCH (08:53)
[2023-03-10] MEDS: APIXABAN 2.5 MG TABLET PO SCH (08:53)
[2023-03-10] MEDS: amLODIPine 10 MG TAB PO SCH (08:53)
[2023-03-10] MEDS: CLOPIDOGREL 75 MG TAB PO SCH (08:54)
[2023-03-10] MEDS: CHOLECALCIFEROL 25 MCG (1000 IU) TABLET PO SCH (08:54)
[2023-03-10 09:57] VITALS: BP 173/75; PULSE 58
--- NOTE | 2023-03-10 14:29 | P.CNNES ---
History of Present Illness Consult date: 03/10/23 Requesting physician: Aundrea Pompa Reason for Consult: Confusion History of Present Illness: Patient is a 88-year-old female came to the hospital by ambulance 03/04/2023 for headache, and upper abdominal pain. Patient was alert and oriented 3 when EMS arrived. Patient mentioned that she woke up in the morning about 30 minutes prior to EMS arrival and had a headache with upper abdominal pain. She has not had a bowel movement in over 48 hours. Patient was feeling slightly dizzy. Patient's vitals at the scene was blood pressure 138/54, pulse rate 46 respiratory rate 20 saturation 94%. Neurology was consulted for altered mental status. Patient at present does be that she came here just to have her vitals checked, does not know why she was brought to the hospital. Patient states that she came by herself from her home, "rode in with that lady, the one sitting.". Patient then said "I don't know where she is gone". Patient says "we have been in same session all the time". Patient is somewhat confused. Patient's blood test shows normal CBC, CMP with AST mildly elevated 40. UA is negative. Negative leukocyte esterase, but many bacteria. CT head revealed no acute intracranial process. Remote injury to the right frontal lobe and left superior cerebellar hemisphere. On my review, there is also evidence of old lacunar stroke involving the right is a ganglia besides above findings. Visual ized paranasal sinuses are clear. Patient was seen by neurology team including myself on 12/27/2022 for acute ischemic stroke within the peripheral right parietal, temporal and occipital lobes. Patient was on aspirin and Eliquis at that time. Aspirin was switched to Plavix. Patient has bilateral ICA stenosis, greater than 90% stenosis proximal right ICA and 70% stenosis left proximal ICA. Vascular surgery was consulted, but patient and her sons declined carotid revascularization surgery, or even stenting. Patient has been seen by myself on 05/15/2022 for acute confusion as well. It was felt to be delirium. Patient had a similar episode 3-5 months prior to that admission as well, when she had acute memory issues. She was hospitalized at the [facility] and while in the hospital she became more confused, started lashing out. While in the hospital she was diagnosed with UTI. Patient's son admits that her short-term memory is not good although long-term memory is very well. No history of seizures. Patient has history of an acute stroke in December 2014 after she recovered from her breast cancer surgery, she could not use her left hand. It took almost 1-2 weeks for her to recover and 2 weeks later she was back to baseline, driving. The patient had low back surgery after which she was started on Coumadin, perhaps for atrial fibrillation. She stayed on Coumadin for years. About 2 or 3 years ago, she was switched to Eliquis. Patient's workup performed previous admission on 12/27/2022 included: CTA of head and neck 12/27/2022 revealed greater than 90% stenosis of the proximal right ICA which has worsened from prior on 07/20/2022. Alternatively, this may represent a short segment of occlusion with backfilling. Right measures up to 4 mm in length. Similar at least 70% stenosis of the left proximal ICA secondary to calcified plaque. Beaded appearance of the right carotid bifurcation which could represent focal nodular hyperplasia. Diminutive right ICA extending from 80 of suspected occlusion versus high grade stenosis into the termination into the sleetmute of [place]. No evidence of dissection of the cervical ICA or vertebral arteries. No aneurysm. Carotid duplex 12/22/2022 revealed significant stenosis in the bilateral ICA is taught present. Advise repeat CTA or MRA of the neck to further evaluate. Antegrade flow in both vertebral arteries. Patient had a CTA head and neck done on 07/20/2022 which reported mild stenosis bilateral carotid bifurcations. This is approaching 50% on the left. No acute changes sleetmute of [place]. Patient had a carotid Doppler also performed recently on 05/15/2022, which revealed elevated ICA peak systolic velocities likely on the basis of turbulent flow as the end-diastolic velocities and ICA/CCA ratios fall within normal limits. Vascular surgery input appreciated. Discussed with patient's son in detail. They do not believe patient is stable enough to undergo any anesthesia. Patient's family declined carotid stenting as well. Patient was switched from aspirin to Plavix. Continue Eliquis. MRI brain with and without contrast 12/22/2022 revealed acute/subacute foci of i schemia within the peripheral right parietal, temporal and occipital lobes. No abnormal contrast enhancement. Remote ischemic injuries to the right frontal, right parietal occipital, right thalamus and left cerebellum. Nonspecific white matter changes, likely related to chronic small vessel ischemic disease. I personally reviewed MRI agree with the findings. 2D echo 12/25/2022 revealed normal left ventricular size and systolic function with EF 55-60%. Moderate LVH. Trace to mild MR. Mild TR. Normal left atrial size. Lipid panel with cholesterol 101, LDL 51, HDL 37, triglycerides 59. Continue pravastatin 40 mg daily. Hemoglobin A1c 5.9 on 07/20/2022. Patient has ischemic stroke despite being on Eliquis 2.5 mg twice a day and aspirin 81 mg daily. This is likely due to severe ICA stenosis. No need for FRANCINE. Patient is compliant with medications. Review of Systems Constitutional: Denies chills, Denies fever Eyes: denies blurred vision, denies diplopia, denies pain Ears: deny: decreased hearing, ear discharge Ears, nose, mouth and throat: Denies headache, Denies sore throat Cardiovascular: Denies chest pain, Denies shortness of breath Respiratory: Reports excessive sputum, Denies cough, Denies cough with sputum Gastrointestinal: Denies abdominal pain, Denies diarrhea, Denies nausea, Denies vomiting Genitourinary: Denies dysuria, Denies hematuria, Denies vaginal odor Musculoskeletal: Reports frequent falls, Reports low back pain, Reports muscle weakness, Denies neck pain Integumentary: Denies pruritus, Denies rash Neurological: Reports as per HPI Psychiatric: Reports insomnia, Denies anxiety, Denies depression Endocrine: Reports fatigue, Denies weight change Hematologic/Lymphatic: Denies easy bleeding, Denies easy bruising All systems: negative (Except as mentioned in HPI.) 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,, emphysema; hypoglycemia, hx breast cancer, History of Any Multi-Drug Resistant Organisms: None Reported Past Surgical History: Back Surgery, Breast Surgery, Cholecystectomy, Heart Catheterization Additional Past Surgical History / Comment(s): L SUBCLAVIAN ARTERY BYPASS, Rt CAROTID ENDARTECTOMY, rt breast lumpectomy Past Anesthesia/Blood Transfusion Reactions: No Reported Reaction Additional Past Anesthesia/Blood Transfusion Reaction / Comment(s): . Past Psychological History: Anxiety Additional Psychological History / Comment(s): . Smoking Status: Former smoker Past Alcohol Use History: None Reported Additional Past Alcohol Use History / Comment(s): 1 PPD STARTED SMOKING AT AGE 15 QUIT IN 1984 SMOKED 1PPD Past Drug Use History: None Reported - Past Family History Brother(s) Family Medical History: Cancer Sister(s) Family Medical History: Cancer Mother Family Medical History: Coronary Artery Disease (CAD) Additional Family Medical History / Comment(s): enlarged heart Father Family Medical History: Coronary Artery Disease (CAD), CVA/TIA Medications and Allergies Home Medications Medication Instructions Recorded Confirmed Type Pantoprazole [Protonix] 40 mg PO DAILY 04/11/18 03/04/23 History Albuterol Inhaler [Ventolin Hfa 2 puff INHALATION RT-Q6H PRN 04/29/22 03/04/23 History Inhaler] Apixaban [Eliquis] 2.5 mg PO BID 04/29/22 03/04/23 History DULoxetine HCL [Cymbalta] 30 mg PO DAILY 04/29/22 03/04/23 History Denosumab [Prolia] 60 mg SQ Q180D 04/29/22 03/04/23 History Furosemide [Lasix] 20 mg PO DAILY 04/29/22 03/04/23 History Isosorbide Mononitrate ER [Imdur] 30 mg PO DAILY 04/29/22 03/04/23 History Melatonin 5 mg PO HS 04/29/22 03/04/23 History Cholecalciferol [Vitamin D3 (25 25 mcg PO DAILY 09/30/22 03/04/23 History Mcg = 1000 Iu)] Ascorbic Acid [Vitamin C] 500 mg PO DAILY 10/27/22 03/04/23 History Acetaminophen-Codeine 300-30mg 1 tab PO BID PRN #4 tab 12/28/22 03/04/23 Rx [Tylenol w/codeine #3] Clopidogrel [Plavix] 75 mg PO DAILY 30 Days #30 tab 12/28/22 03/04/23 Rx Apple Cider Vinegar Chew 1 tab PO DAILY 03/04/23 03/04/23 History Atorvastatin [Lipitor] 10 mg PO HS 03/04/23 03/04/23 History Ferrous Sulfate [Iron (65 MG 325 mg PO DAILY 03/04/23 03/04/23 History Elemental)] amLODIPine [Norvasc] 10 mg PO DAILY #30 tab 03/08/23 Rx Allergies Allergy/AdvReac Type Severity Reaction Status Date / Time No Known Allergies Allergy Verified 03/04/23 14:25 Physical Examination - Vital Signs Vital Signs: Vital Signs Pulse Pulse Resp BP Pulse Ox 03/10/23 08:19 98 03/10/23 02:00 91 18 139/65 99 03/09/23 20:18 70 16 139/63 100 03/09/23 16:36 81 81 16 111/55 97 03/09/23 11:45 92 16 129/62 98 Intake and Output 03/09/23 03/10/23 03/10/23 22:59 06:59 14:59 Intake Total 972 120 Balance 972 120 Intake: IV 750 Sodium Chloride 0.9% 1, 750 000 ml @ 75 mls/hr IV . [id number] JARETH Rx#:[id number] Oral 222 120 Other: Voiding Method External Catheter # Voids 2 Patient is an elderly Afro-Uz[place] female, very pleasant, in no acute distress. Patient is alert awake, partly oriented. Patient states it is generally in the year is 2022. 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 She states that she is here to work now. She believes that she is in [employer] in [employer], that makes different things for the cars. She knows that she is in [place] in [place] and name of the current president Mr. Gomez. Patient states she is 87 years old. Speech and language functions are normal. Patient can name and repeat very well. No aphasia or dysarthria. Attention, concentration is intact and fund of is slightly impaired. Detail cognitive function testing deferred. On cranial nerve examination, pupils are equal, round and reacting to light, visual everett are full on confrontation, with no neglect on double simultaneous stimulation. Extraocular muscles are intact with no nystagmus. Patient has right facial asymmetry with flattening of the nasolabial fold. Her tongue protrudes to the midline. Palatal elevation and sensation normal, hearing and shoulder shrug normal, facial sensation normal. On muscle strength testing, patient has right pronator drift. The muscle strength is (right/left) deltoid 4-/5, biceps 5/5, triceps 5/5, technical sales specialist 5/5-, hip flexion 5/5, ankle dorsiflexion 5-/5, toe extension 2/5. Deep tendon reflexes are symmetric 1 at the biceps, 1 brachioradialis, 1 at the knees 0 ankles and plantars are flat bilaterally. Sensory to touch is equal with no neglect on double simultaneous stimulation. Cerebellar function showed mild ataxia for [id number] testing only on the left side, but not on the right. Tone and bulk of muscles normal. Gait deferred. Patient states that she cannot walk because of low back pain. Results - Laboratory Findings CBC and BMP: 03/05/23 06:35 03/08/23 16:45 Abnormal Lab Findings: Abnormal Labs 03/04/23 03/04/23 03/04/23 06:43 06:43 12:29 Hct MCHC 30.4 L RDW 16.1 H Sodium 136 L Chloride 96 L BUN AST Urine Appearance Cloudy H Ur Squamous Epith Cells 11 H Urine Bacteria Many H Urine Mucus Rare H 03/05/23 03/05/23 03/08/23 06:35 06:35 16:45 Hct 47.8 H MCHC 30.4 L RDW 16.0 H Sodium 136 L Chloride BUN 19 H AST 40 H Urine Appearance Ur Squamous Epith Cells Urine Bacteria Urine Mucus Assessment and Plan Assessment: * Altered mental status, probably mild delirium. Patient does have mild focal symptoms with right facial droop, and right arm weakness. Uncertain if any new ischemic event. Patient does have bilateral severe ICA stenosis, but family has declined any intervention during the admission in December 2022. 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 Proximal left ICA stenosis, 70% secondary to calcified plaque. * Atrial fibrillation on anticoagulation with Eliquis 2.5 mg twice a day, also on Plavix 75 mg daily. * History of right CEA. * Hypertension * Hyperlipidemia * Chronic back pain * History of breast cancer Plan: * Patient has developed mild confusion, with disorientation, likely due to acute delirium. This can be related to hospitalization. Patient also has mild focal findings noted on examination with right facial droop, right arm drift. CVA is a remote possibility, although less likely. * Patient has severe bilateral ICA stenosis right>left, and family has declined surgery or any intervention in the past. * Dr. billingsley discussed with patient's son again today, and they again declined any carotid intervention. They believe patient will be better once she goes home. * Neurologically clear for discharge on Eliquis 2.5 mg twice a day, Plavix 75 mg daily and Pravachol 40 mg daily. * 2-D echo revealed normal left ventricular size and systolic function with EF 60-65%. No valvular abnormalities. * Thank you for the consult.
[2023-03-10 15:00] LABS: Basophils # (A) 0.1 k/uL (0-0.2); Basophils % (A) 1 %; Eosinophils # (A) 0.1 k/uL (0-0.7); Eosinophils % (A) 1 %; HCT 44.9 % (34.0-46.0); HGB 13.9 gm/dL (11.4-16.0); Hypochromasia Marked; Lymphocytes # (A) 1.6 k/uL (1.0-4.8); Lymphocytes % (A) 20 %; MCH 28.6 pg (25.0-35.0); MCV 92.3 fL (80.0-100.0); Mean Platelet Volume 6.8; Monocytes # (A) 0.6 k/uL (0-1.0); Monocytes % (A) 8 %; Neutrophils # (A) 5.2 k/uL (1.3-7.7); Neutrophils % (A) 68 %; Platelet Count 233 k/uL (150-450); RBC 4.86 m/uL (3.80-5.40); RDW 15.9 % (11.5-15.5); WBC 7.7 k/uL (3.8-10.6)
[2023-03-10 15:19] LABS: African American GFR (CKD) >90 (>60 ml/min/1.73 sqM); Anion Gap 12 mmol/L; Blood Urea Nitrogen 21 mg/dL (7-17); Calcium 9.8 mg/dL (8.4-10.2); Carbon Dioxide 23 mmol/L (22-30); Chloride 104 mmol/L (98-107); Glucose 104 mg/dL (74-99); Magnesium 2.2 mg/dL (1.6-2.3); Non-African American GFR(CKD) 81 (>60 ml/min/1.73 sqM); Potassium 4.4 mmol/L (3.5-5.1); Sodium 139 mmol/L (137-145)
--- NOTE | 2023-03-11 06:52 | P.DS ---
Providers Date of admission: 03/04/23 09:59 Attending physician: Katelynn Carbone MD Consults: 03/09/23 18:14 Consult Physician Routine Consulting Provider: Osbaldo Hart Consult Reason/Comments: confusion Do you want consulting provider notified?: Yes Primary care physician: aTcos Saha [facility] Course: Diagnoses: -Sinus tachy-bradycardia syndrome, currently stable and cleared by electronic assembler group leader recommending to remain off AV angela blocking agents -Altered mental status per family patient is not at baseline possibility of hospital acquired delirium , patient suspected also to help for Geovani dementia w ith some memory problem however these need to be evaluated as an outpatient. New stroke/TIA felt less likely -Dizziness, nonspecific secondary to above. Resolved -Paroxysmal atrial fibrillation anticoagulated with eliqus -Vomiting has improved. -Memory problem, rule out vascular dementia as an outpatient -Hx of stroke with brain CT showing remote infarct. -Significant carotid stenosis found back in OCT, patient and family refused surgical intervention at that time and opted for medical treatment patient continues on DAP with plavix and low dose eliquis -Hx of right carotid endartectomy per medical history -Hypertension -History of COPD with chronic hypoxic respiratory failure -History of seizure disorder -History of DVT -Dyslipidemia Hospital course: Patient is a pleasant 88-year-old -Canadian female with significant past medical history of stroke, seizures, bradycardia, atrial fibrillation, carotid endarterectomy, and hypertension brought to the ER for dizziness. Her dizziness thought to be secondary to abnormal heart rate with a bradycardia/tachycardia syndrome. Evaluated by electronic assembler group leader and recommended to avoid AV angela agents. She was monitored on telemetry, her heart rate stabilized and patient's symptoms of dizziness has resolved and electronic assembler group leader and cleared her for discharge with recommendation for event monitor as an outpatient and she agrees. Also I talked to the son at bedside Mr. Mtz about this recommendation and he is agreeable as well. Son and patient will follow up with her electronic assembler group leader Dr. Lott in 1 week after discharge as instructed Also patient has history of stroke and paroxysmal A. fib on Eliquis on Plavix at home. Patient states she was taking her medication however she has memory problems and compliance is could be considered an issue therefore I discussed with the son to make sure patient takes her medication at home and he agrees. CT of the brain showing all strokes. Today when I saw the patient she was sitting in chair fully awake and oriented, she denies specific symptoms she She is in the hospital she thought this 2022 but she knew his February, she could not tell the date. She couldn't remember the name of the president jojo She denies any specific symptoms of headache dizziness, no new weakness numbness. No tinkling. No double blurred vision, no slurred speech. No facial deviation on my examination. She is mildly confused but this looks like her baseline. Given her stroke in the vascular dementia suspected however this needs to be reassessed as an outpatient Patient might have mild delirium on the top of it due to hospitalization. As per son he says each time she goes home she gets better mentally and he expects the same today I talked to both signs Mr. Mtz and Mr. Rangel about the recommendation of neurologist for her bilateral carotid artery stenosis which might contribute for future stroke or previous stroke and both of them declined any surgical intervention for their mother. Patient herself also agrees with her son decisions and she does not want any surgical intervention. As such patient become medically clear for discharge. Patient will be discharged on home dose of Eliquis and Plavix [address] Mr. Gamboa told me she has Eliquis at home but he requested a copy of prescription for all other medication which is provided (hand written prescription is provided) Patient was cleared for discharge by cardiology and nephrology services. Problems and management plan were discussed with the patient and he verbalized understanding and acceptance Patient was found stable and can be discharged home in guarded prognosis however he needs follow-up as an outpatient. Patient was instructed to follow up with PCP Dr. Juarez within one week and patient agrees Patient was instructed to follow up with neurologist Dr. Hallman in 1-2 weeks after discharge and she agrees Patient was instructed to follow up with electronic assembler group leader Dr. Lott in 1 week after discharge and she agrees Physical exam -Gen: patient is a AAOx2, no distress CVS: S1-S2, RRR, no murmur Lungs: B/L CTA, no wheezing Abdomen: soft, no distention, no tenderness, positive bowel sounds Extremity: no leg edema or induration Time spent more than 35 minutes Plan - Discharge Summary Discharge Rx Participant: No New Discharge Prescriptions: New amLODIPine [Norvasc] 10 mg PO DAILY #30 tab Continue Pantoprazole [Protonix] 40 mg PO DAILY DULoxetine HCL [Cymbalta] 30 mg PO DAILY Albuterol Inhaler [Ventolin Hfa Inhaler] 2 puff INHALATION RT-Q6H PRN PRN Reason: Shortness Of Breath Acetaminophen-Codeine 300-30mg [Tylenol w/codeine #3] 1 tab PO BID PRN #4 tab PRN Reason: Pain Clopidogrel [Plavix] 75 mg PO DAILY 30 Days #30 tab Apple Cider Vinegar Chew 1 tab PO DAILY Isosorbide Mononitrate ER [Imdur] 30 mg PO DAILY Furosemide [Lasix] 20 mg PO DAILY Melatonin 5 mg PO HS Denosumab [Prolia] 60 mg SQ Q180D Apixaban [Eliquis] 2.5 mg PO BID Cholecalciferol [Vitamin D3 (25 Mcg = 1000 Iu)] 25 mcg PO DAILY Ascorbic Acid [Vitamin C] 500 mg PO DAILY Atorvastatin [Lipitor] 10 mg PO HS Ferrous Sulfate [Iron (65 MG Elemental)] 325 mg PO DAILY Discontinued Pravastatin Sodium [Pravachol] 40 mg PO HS Discharge Medication List Pantoprazole [Protonix] 40 mg PO DAILY 04/11/18 [History] Albuterol Inhaler [Ventolin Hfa Inhaler] 2 puff INHALATION RT-Q6H PRN 04/29/22 [History] Apixaban [Eliquis] 2.5 mg PO BID 04/29/22 [History] DULoxetine HCL [Cymbalta] 30 mg PO DAILY 04/29/22 [History] Denosumab [Prolia] 60 mg SQ Q180D 04/29/22 [History] Furosemide [Lasix] 20 mg PO DAILY 04/29/22 [History] Isosorbide Mononitrate ER [Imdur] 30 mg PO DAILY 04/29/22 [History] Melatonin 5 mg PO HS 04/29/22 [History] Cholecalciferol [Vitamin D3 (25 Mcg = 1000 Iu)] 25 mcg PO DAILY 09/30/22 [History] Ascorbic Acid [Vitamin C] 500 mg PO DAILY 10/27/22 [History] Acetaminophen-Codeine 300-30mg [Tylenol w/codeine #3] 1 tab PO BID PRN #4 tab 12/28/22 [Rx] Clopidogrel [Plavix] 75 mg PO DAILY 30 Days #30 tab 12/28/22 [Rx] Apple Cider Vinegar Chew 1 tab PO DAILY 03/04/23 [History] Atorvastatin [Lipitor] 10 mg PO HS 03/04/23 [History] Ferrous Sulfate [Iron (65 MG Elemental)] 325 mg PO DAILY 03/04/23 [History] amLODIPine [Norvasc] 10 mg PO DAILY #30 tab 03/08/23 [Rx] Follow up Appointment(s)/Referral(s): Karen Shepard,Home Care [NON-STAFF] - Tacos Saha MD [Primary Care Provider] - 1-2 days (Please call to schedule appointment) Lynette Hallman MD [Medical Doctor] - 2 Weeks (neurologist ) Len Lott MD [STAFF PHYSICIAN] - 1 Week (we recommend event monitor ) Ambulatory/Diagnostic Orders: Basic Metabolic Panel [LAB.AMB] Time Frame: 3 Days, Location: None Selected Patient Instructions/Handouts: Bradycardia (DC) Activity/Diet/Wound Care/Special Instructions: Follow up with PCP in 1 to 2 days Need to follow up with cardiology and they are considering possible event monitor o.p. heart healthy diet activity is restricted till you see your doctor Discharge Disposition: HOME SELF-CARE
== END 2023-03-10 16:00 | disposition home or self-care (01) | DRG 309 ==
LOC: EC 06:18 → 3SCARD 09:59
PROVIDERS: ADMIT Internal Medicine; ATTEND Internal Medicine
DX: I49.5 Sick sinus syndrome (principal); F01.54 Vascular dementia, unspecified severity, with anxiety; F05 Delirium due to known physiological condition; J96.11 Chronic respiratory failure with hypoxia; I69.354 Hemiplegia and hemiparesis following cerebral infarction affecting left non-dominant side; I44.0 Atrioventricular block, first degree; I08.1 Rheumatic disorders of both mitral and tricuspid valves; R55 Syncope and collapse; E86.1 Hypovolemia; I48.0 Paroxysmal atrial fibrillation; F41.9 Anxiety disorder, unspecified; J43.9 Emphysema, unspecified; G40.909 Epilepsy, unspecified, not intractable, without status epilepticus; I50.9 Heart failure, unspecified; I11.0 Hypertensive heart disease with heart failure; J44.9 Chronic obstructive pulmonary disease, unspecified; I65.23 Occlusion and stenosis of bilateral carotid arteries; E78.5 Hyperlipidemia, unspecified; R29.810 Facial weakness; G89.29 Other chronic pain; Z87.01 Personal history of pneumonia (recurrent); M19.90 Unspecified osteoarthritis, unspecified site; Z79.01 Long term (current) use of anticoagulants; Z79.02 Long term (current) use of antithrombotics/antiplatelets; Z79.82 Long term (current) use of aspirin; Z79.899 Other long term (current) drug therapy; Z82.49 Family history of ischemic heart disease and other diseases of the circulatory system; Z85.3 Personal history of malignant neoplasm of breast; Z86.718 Personal history of other venous thrombosis and embolism; Z90.49 Acquired absence of other specified parts of digestive tract
CPT/HCPCS: 36415; 51702; 70450; 71046; 80048; 80053; 81001; 83735; 84443; 84484; 85025; 85027; 93005; 93308; 94760; 96361; 96374; 99291

== ENCOUNTER 2023-03-15 08:42 | Emergency (ER) | payer MEDICARE, BC ==
[2023-03-15 08:54] VITALS: TEMP 97
[2023-03-15] MEDS ORDERED: Acetaminophen-Codeine 300-30mg TAB PO STA (08:56)
[2023-03-15] MEDS ORDERED: LIDOCAINE 4% PATCH TOPICAL STA (08:56)
--- NOTE | 2023-03-15 09:09 | ED ---
General Adult HPI - General Chief complaint: Back Pain/Injury Stated complaint: Back pain Time Seen by Provider: 03/15/23 08:45 Source: patient, RN notes reviewed, old records reviewed Mode of arrival: EMS Limitations: no limitations - History of Present Illness Initial comments: Patient is an 88-year-old female presents emergency department for any back pain. Patient has remote history of back surgery. Also has a history of stroke. Is on blood thinners. States she was turning over in bed this morning to get out to use the restroom when she felt a pulling sensation in her back. Was concerned that the surgery on her lower back may have been disrupted. Did not fall. Expressed no trauma. Currently she is having some right sided lower back pain. Denies any other acute complaints at this time. Denies any saddle anesthesias, lower extremity paralysis, bowel or bladder incontinence or retention. Ambulates with a walker at baseline. Presents for further evaluation of her back pain.Patient did not fall. She did not hit her head. She did not lose consciousness. - Related Data Home Medications Medication Instructions Recorded Confirmed Pantoprazole [Protonix] 40 mg PO DAILY 04/11/18 03/04/23 Albuterol Inhaler [Ventolin Hfa 2 puff INHALATION RT-Q6H PRN 04/29/22 03/04/23 Inhaler] Apixaban [Eliquis] 2.5 mg PO BID 04/29/22 03/04/23 DULoxetine HCL [Cymbalta] 30 mg PO DAILY 04/29/22 03/04/23 Denosumab [Prolia] 60 mg SQ Q180D 04/29/22 03/04/23 Furosemide [Lasix] 20 mg PO DAILY 04/29/22 03/04/23 Isosorbide Mononitrate ER [Imdur] 30 mg PO DAILY 04/29/22 03/04/23 Melatonin 5 mg PO HS 04/29/22 03/04/23 Cholecalciferol [Vitamin D3 (25 25 mcg PO DAILY 09/30/22 03/04/23 Mcg = 1000 Iu)] Ascorbic Acid [Vitamin C] 500 mg PO DAILY 10/27/22 03/04/23 Apple Cider Vinegar Chew 1 tab PO DAILY 03/04/23 03/04/23 Atorvastatin [Lipitor] 10 mg PO HS 03/04/23 03/04/23 Ferrous Sulfate [Iron (65 MG 325 mg PO DAILY 03/04/23 03/04/23 Elemental)] Previous Rx's Medication Instructions Recorded Acetaminophen-Codeine 300-30mg 1 tab PO BID PRN #4 tab 12/28/22 [Tylenol w/codeine #3] Clopidogrel [Plavix] 75 mg PO DAILY 30 Days #30 tab 12/28/22 amLODIPine [Norvasc] 10 mg PO DAILY #30 tab 03/08/23 Lidocaine 5% Patch [Lidoderm 5% 1 patch TOPICAL DAILY PRN 14 Days 03/15/23 Patch] #14 patch Allergies Allergy/AdvReac Type Severity Reaction Status Date / Time No Known Allergies Allergy Verified 03/04/23 14:25 Review of Systems ROS Statement: Those systems with pertinent positive or pertinent negative responses have been documented in the HPI. Review of Systems: CONST: Denies fever EYES: Denies blurry vision ENT: Denies nasal congestion C/V: Denies Chest pain RESP: Denies shortness of breath GI: Denies abdominal pain : Denies dysuria SKIN: Denies rash. MSK: Endorses back pain NEURO: Denies headache ROS Other: All systems not noted in ROS Statement are negative. 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 Past Psychological History: Anxiety Smoking Status: Former smoker Past Alcohol Use History: None Reported Past Drug Use History: None Reported - Past Family History Brother(s) Family Medical History: Cancer Sister(s) Family Medical History: Cancer Mother Family Medical History: Coronary Artery Disease (CAD) Additional Family Medical History / Comment(s): enlarged heart Father Family Medical History: Coronary Artery Disease (CAD), CVA/TIA General Exam - General Exam Comments Initial Comments: General: Appears in no acute distress. HEAD: Normal with no signs of head trauma. EYES: EOMI. ENT: Hearing grossly intact. RESPIRATORY: No respiratory distress. C/V: Regular rate and rhythm. ABD: Abdomen is nondistended. EXT: No obvious deformity. No midline step tenderness palpation of the cervical, thoracic, lumbar spine. Right-sided paraspinal muscle tenderness palpation of the mid lumbar spine. This is where she had prior surgery per patient. No obvious step-offs or deformities of the spine. Pelvis is stable. SKIN: No rashes or lesions observed on exposed skin. NEURO: Alert and oriented. No obvious neurovascular deficits. No focal acute neuro deficits. Limitations: no limitations Course Vital Signs 03/15/23 03/15/23 03/15/23 08:48 08:51 09:51 Temperature 97 F L Pulse Rate 55 L 55 L 50 L Respiratory 20 16 16 Rate Blood Pressure 124/58 124/58 110/60 O2 Sat by Pulse 94 L 95 98 Oximetry 03/15/23 10:43 Temperature Pulse Rate 60 Respiratory 16 Rate Blood Pressure 124/68 O2 Sat by Pulse 98 Oximetry Medical Decision Making - Medical Decision Making Was pt. sent in by a medical professional or institution (, PA, DEPOT MANAGER, urgent care, hospital, or [place] [facility]...) When possible be specific @ -No Did you speak to anyone other than the patient for history (EMS, parent, family, police, friend...)? What history was obtained from this source @ -No Did you review nursing and triage notes (agree or disagree)? Why? @ -I reviewed and agree with nursing and triage notes Were old charts reviewed (outside hosp., previous admission, EMS record, old EKG, old radiological studies, urgent care reports/EKG's, [place] [facility] records)? Report findings @ -Old charts reviewed Differential Diagnosis (chest pain, altered mental status, abdominal pain women, abdominal pain men, vaginal bleeding, weakness, fever, dyspnea, syncope, headache, dizziness, GI bleed, back pain, seizure, CVA, palpatations, mental health, musculoskeletal)? @ -Differential Musculoskeletal Muscular strain, contusion, ligament sprain, fracture, arthritis, septic arthritis, bursitis, cellulitis, muscle spasm, nerve compression, DVT, arterial occlusion, herpes zoster, electrolyte abnormality, tumor.... This is not meant to be in all inclusive list EKG interpreted by me (3pts min.). @ -None done X-rays interpreted by me (1pt min.). @ -None done CT interpreted by me (1pt min.). @ -Patient's CT negative for any obvious traumatic injury. U/S interpreted by me (1pt. min.). @ -None done What testing was considered but not performed or refused? (CT, X-rays, U/S, labs)? Why? @ -None What meds were considered but not given or refused? Why? @ -None Did you discuss the management of the patient with other professionals (professionals i.e. , PA, DEPOT MANAGER, lab, RT, psych nurse, social service director, pairer inspector, teacher, military source operations officer, case investigator)? Give summary @ -No Was smoking cessation discussed for >3mins.? @ -No Was critical care preformed (if so, how long)? @ -No Were there social determinants of health that impacted care today? How? (Homelessness, low income, unemployed, alcoholism, drug addiction, transportation, low edu. Level, literacy, decrease access to med. care, [place] [facility], rehab)? @ -No Was there de-escalation of care discussed even if they declined (Discuss DNR or withdrawal of care, Hospice)? DNR status @ -No What co-morbidities impacted this encounter? (DM, HTN, Smoking, COPD, CAD, Cancer, CVA, ARF, Chemo, Hep., AIDS, mental health diagnosis, sleep apnea, morbi d obesity)? @ -None Was patient admitted / discharged? Hospital course, mention meds given and route, prescriptions, significant lab abnormalities, going to OR and other pertinent info. @ -Patient presents with atraumatic back pain in the setting of prior lumbar spine surgery. We will obtain CT lumbar spine. Patient will receive a lidocai ne patch as well as Tylenol 3 pain medication for pain control. She was in agreement this plan. No other obvious deficits. Exam relatively unremarkable. Vital signs are within acceptable limits. No concern for cauda equina at this time, as she has no red flag symptoms.. Imaging negative for any obvious traumatic injury. Reviewed the results with the patient. She'll be discharged home with analgesia medications. She likely has a muscle strain. Patient was in agreement this plan. I instructed the patient to follow up with their PCP in the next 1-3 days. I explained that the patient should return to the emergency department if they experience any worsening symptoms. Strict return precautions were discussed with the patient. The patient expressed understanding of these instructions. I answered all questions that the patient had. The patient was discharged home in [good] condition with their prescriptions and follow up information. Undiagnosed new problem with uncertain prognosis? @ -No Drug Therapy requiring intensive monitoring for toxicity (Heparin, Nitro, Insulin, Cardizem)? @ -No Were any procedures done? @ -No Diagnosis/symptom? @ -Muscle strain, sprain. Back pain Acute, or Chronic, or Acute on Chronic? @ -Acute Uncomplicated (without systemic symptoms) or Complicated (systemic symptoms)? @ -Uncomplicated Side effects of treatment? @ -No Exacerbation, Progression, or Severe Exacerbation? @ -No Poses a threat to life or bodily function? How? (Chest pain, [place], [place], pneumonia, PE, COPD, DKA, ARF, appy, cholecystitis, CVA, Diverticulitis, Homicidal, Suicidal, threat to staff... and all critical care pts) @ -No Disposition Clinical Impression: Back strain Disposition: HOME SELF-CARE Condition: Good Instructions (If sedation given, give patient instructions): Acute Low Back Pain (ED) Prescriptions: Lidocaine 5% Patch [Lidoderm 5% Patch] 1 patch TOPICAL DAILY PRN 14 Days #14 patch PRN Reason: Pain Is patient prescribed a controlled substance at d/c from ED?: No Referrals: Tacos Saha MD [Primary Care Provider] - 1-2 days Time of Disposition: 10:22
[2023-03-15 09:18] VITALS: RESP 16
--- NOTE | 2023-03-15 09:34 | CT ---
EXAMINATION TYPE: CT lumbar spine wo con DATE OF EXAM: 03/15/2023 9:27 AM COMPARISON: Prior CT May 19, 2022 HISTORY: Non traumatic pain. History of surgery. CT DLP: 1149.6 mGycm Automated exposure control for dose reduction was used. Unenhanced CT of the lumbar spine was performed. Bone and soft tissue window settings are submitted as well as coronal and sagittal reconstructions. There are 5 lumbar type vertebra that are redemonstrated. Lumbar spine shows stable and satisfactory alignment without evidence of acute fracture or dislocation. Postsurgical change L5-S1 level with art ificial disc material and anterior fusion plate and some ossific fusion is redemonstrated. Vertebral body heights are maintained. Moderate to severe multilevel spurring and disc space narrowing is prese nt. Multilevel vacuum disc phenomenon. Posterior spurring and/or spur disc complexes efface the anter ior thecal sac at T12-L1 through L3-L4 levels. Posterior disc herniation effaces the anterior thecal sac at L4-L5 level. Axial images show multilevel uncovertebral facet degenerative changes greatest in the lower lumbar sp ine. Multilevel bilateral neural foraminal narrowing is felt present. There is moderate atherosclerot ic change of the abdominal aorta with focal aneurysm redemonstrated. Aneurysm measures 6.5 cm transve rsely axial image 51 similar to prior. 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 Some scattered colonic diverticula are present. IMPRESSION: No acute findings are seen. Postsurgical change and multilevel degenerative changes are r edemonstrated.
[2023-03-15] MEDS ORDERED: ACET/COD 300 MG/30 MG STARTER PACK 6 TAB BTL PO STA (10:26)
[2023-03-15 10:58] VITALS: BP 124/68; PULSE 60
== END 2023-03-15 10:45 | disposition home or self-care (01) ==
LOC: EC 08:42
DX: S39.012A Strain of muscle, fascia and tendon of lower back, initial encounter (principal); I11.0 Hypertensive heart disease with heart failure; I50.9 Heart failure, unspecified; J43.9 Emphysema, unspecified; E78.5 Hyperlipidemia, unspecified; F41.9 Anxiety disorder, unspecified; Z90.49 Acquired absence of other specified parts of digestive tract; Z79.01 Long term (current) use of anticoagulants; Z79.02 Long term (current) use of antithrombotics/antiplatelets; Z79.899 Other long term (current) drug therapy; Z86.718 Personal history of other venous thrombosis and embolism; Z86.73 Personal history of transient ischemic attack (TIA), and cerebral infarction without residual deficits; Z87.891 Personal history of nicotine dependence; X58.XXXA Exposure to other specified factors, initial encounter
CPT/HCPCS: 72131; 99284

== ENCOUNTER 2023-05-13 12:26 | Inpatient (IN) | payer MEDICARE, BC ==
--- NOTE | 2023-05-13 13:18 | ED ---
General Adult HPI - General Chief complaint: Shortness of Breath Stated complaint: Weakness Time Seen by Provider: 05/13/23 12:27 Source: patient, EMS Mode of arrival: EMS - History of Present Illness Initial comments: Dictation was produced using [employer] dictation software. please excuse any grammatical, word or spelling errors. Chief Complaint: 88-year-old female presents to the emergency department with cough History of Present Illness: Patient is 88-year-old female she has multiple comorbidities states that she has had a cough for proxy 1 week. She lives at home by herself. Had a conversation with her son who ultimately called EMS brought patient to the emergency department. Patient has no pain complaints. Denies any fever, chills or night sweats. She does report a little bit of associated weakness. The ROS documented in this emergency department record has been reviewed and confirmed by me. Those systems with pertinent positive or negative responses parrish ve been documented in the HPI. All other systems are other negative and/or noncontributory. - Related Data Home Medications Medication Instructions Recorded Confirmed Pantoprazole [Protonix] 40 mg PO DAILY 04/11/18 03/04/23 Albuterol Inhaler [Ventolin Hfa 2 puff INHALATION RT-Q6H PRN 04/29/22 03/04/23 Inhaler] Apixaban [Eliquis] 2.5 mg PO BID 04/29/22 03/04/23 DULoxetine HCL [Cymbalta] 30 mg PO DAILY 04/29/22 03/04/23 Denosumab [Prolia] 60 mg SQ Q180D 04/29/22 03/04/23 Furosemide [Lasix] 20 mg PO DAILY 04/29/22 03/04/23 Isosorbide Mononitrate ER [Imdur] 30 mg PO DAILY 04/29/22 03/04/23 Melatonin 5 mg PO HS 04/29/22 03/04/23 Cholecalciferol [Vitamin D3 (25 25 mcg PO DAILY 09/30/22 03/04/23 Mcg = 1000 Iu)] Ascorbic Acid [Vitamin C] 500 mg PO DAILY 10/27/22 03/04/23 Apple Cider Vinegar Chew 1 tab PO DAILY 03/04/23 03/04/23 Atorvastatin [Lipitor] 10 mg PO HS 03/04/23 03/04/23 Ferrous Sulfate [Iron (65 MG 325 mg PO DAILY 03/04/23 03/04/23 Elemental)] Previous Rx's Medication Instructions Recorded Acetaminophen-Codeine 300-30mg 1 tab PO BID PRN #4 tab 12/28/22 [Tylenol w/codeine #3] Clopidogrel [Plavix] 75 mg PO DAILY 30 Days #30 tab 12/28/22 amLODIPine [Norvasc] 10 mg PO DAILY #30 tab 03/08/23 Lidocaine 5% Patch [Lidoderm 5% 1 patch TOPICAL DAILY PRN 14 Days 03/15/23 Patch] #14 patch Allergies Allergy/AdvReac Type Severity Reaction Status Date / Time No Known Allergies Allergy Verified 05/13/23 12:31 Review of Systems ROS Statement: Those systems with pertinent positive or pertinent negative responses have been documented in the HPI. ROS Other: All systems not noted in ROS Statement are negative. 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 Past Psychological History: Anxiety Smoking Status: Former smoker Past Alcohol Use History: None Reported Past Drug Use History: None Reported - Past Family History Brother(s) Family Medical History: Cancer Sister(s) Family Medical History: Cancer Mother Family Medical History: Coronary Artery Disease (CAD) Additional Family Medical History / Comment(s): enlarged heart Father Family Medical History: Coronary Artery Disease (CAD), CVA/TIA General Exam - General Exam Comments Initial Comments: PHYSICAL EXAM: General Impression: Alert and oriented x3, not in acute distress HEENT: Normocephalic atraumatic, extra-ocular movements intact, pupils equal and reactive to light bilaterally, mucous membranes moist. Cardiovascular: Heart regular rate and rhythm Chest: Able to complete full sentences, no retractions, no tachypnea Abdomen: abdomen soft, non-tender, non-distended, no organomegaly Musculoskeletal: Pulses present and equal in all extremities, no peripheral edema Motor: no focal deficits noted Neurological: CN II-XII grossly intact, no focal motor or sensory deficits noted Skin: Intact with no visualized rashes Psych: Normal affect and mood Course Vital Signs 05/13/23 05/13/23 12:27 15:41 Temperature 97.5 F L Pulse Rate 55 L 80 Respiratory 16 16 Rate Blood Pressure 134/61 140/76 O2 Sat by Pulse 91 L 97 Oximetry EKG Findings - EKG Comments: EKG Findings:: My EKG interpretation: Ventricular rate 70, sinus rhythm, W[place] interval 247, QRS 71, QTc 371. No [place] prolongation, no QTC prolongation, no ST or T-wave changes noted. Overall, this EKG is unremarkable Medical Decision Making - Medical Decision Making Was pt. sent in by a medical professional or institution (, PA, RENTAL COORDINATOR, urgent care, hospital, or fpc...) When possible be specific @ -No Did you speak to anyone other than the patient for history (EMS, parent, family, police, friend...)? What history was obtained from this source @ -No Did you review nursing and triage notes (agree or disagree)? Why? @ -I reviewed and agree with nursing and triage notes Were old charts reviewed (outside hosp., previous admission, EMS record, old EKG, old radiological studies, urgent care reports/EKG's, fpc records)? Report findings @ -No old charts were reviewed Differential Diagnosis (chest pain, altered mental status, abdominal pain women, abdominal pain men, vaginal bleeding, musculoskeletal, weakness, fever, dyspnea, syncope, headache, dizziness, GI bleed, back pain, seizure, CVA, palpatations, mental health)? @ -Differential Dyspnea: Coronary syndrome, arrhythmia, tamponade, asthma, COPD, pulmonary embolism, pneumonia, pneumothorax, pulmonary effusion, anaphylaxis, diabetic ketoacidosis, flailed chest, pulmonary contusion, diaphragmatic rupture, anemia, neuromuscular, this is not meant to be an all-inclusive list. EKG interpreted by me (3pts min.). @ -See above X-rays interpreted by me (1pt min.). @ -Chest x-ray shows diffuse opacities CT interpreted by me (1pt min.). @ -CT of the chest shows diffuse opacities U/S interpreted by me (1pt. min.). @ -None done What testing was considered but not performed or refused? (CT, X-rays, U/S, labs)? Why? @ -None What meds were considered but not given or refused? Why? @ -None Did you discuss the management of the patient with other professionals (professionals i.e. DrJanina, PA, RENTAL COORDINATOR, lab, RT, psych nurse, social work professor, receiving room clerk, teacher, executive officer, employment case manager)? Give summary @ -Case discussed with hospitalist for admission Was smoking cessation discussed for >3mins.? @ -No Was critical care preformed (if so, how long)? @ -No Were there social determinants of health that impacted care today? How? (Homelessness, low income, unemployed, alcoholism, drug addiction, transportation, low edu. Level, literacy, decrease access to med. care, [facility], rehab)? @ -No Was there de-escalation of care discussed even if they declined (Discuss DNR or withdrawal of care, Hospice)? DNR status @ -No What co-morbidities impacted this encounter? (DM, HTN, Smoking, COPD, CAD, Cancer, CVA, ARF, Chemo, Hep., AIDS, mental health diagnosis, sleep apnea, morbid obesity)? @ -None Was patient admitted / discharged? Hospital course, mention meds given and route, prescriptions, significant lab abnormalities, going to OR and other pertinent info. @ -88-year-old female presents emergency department for hypoxic respiratory fa ilure. Patient initially 91% on room air. Nasal cannula oxygen was removed patient dropped into the low to mid 80%. Patient placed back on nasal cannula. She does state that she uses supplemental oxygen however only at night. Laboratory evaluation is within acceptable limits. Chest x-ray shows groundglass opacities. Given patient's age, complaints there is suspicion of commune acquired pneumonia she started on antibiotics. Patient will be admitted to observation with pulmonary consult. Undiagnosed new problem with uncertain prognosis? @ -No Drug Therapy requiring intensive monitoring for toxicity (Heparin, Nitro, Insulin, Cardizem)? @ -No Were any procedures done? @ -No Diagnosis/symptom? Acute, or Chronic, or Acute on Chronic? Uncomplicated (without systemic symptoms) or Complicated (systemic symptoms)? @ -Hypoxic respiratory failure Side effects of treatment? @ -No Exacerbation, Progression, or Severe Exacerbation? @ -No Poses a threat to life or bodily function? How? (Chest pain, [place], [place], pneumonia, PE, COPD, DKA, ARF, appy, cholecystitis, CVA, Diverticulitis, Homicidal, Suicidal, threat to staff... and all critical care pts) @ -yes - Lab Data Result diagrams: 05/13/23 13:29 05/13/23 13:29 Lab Results 05/13/23 05/13/23 05/13/23 Range/Units 13:29 13:29 13:29 WBC 5.6 (3.8-10.6) k/uL RBC 4.56 (3.80-5.40) m/uL Hgb 12.3 (11.4-16.0) gm/dL Hct 41.0 (34.0-46.0) % MCV 89.8 (80.0-100.0) fL MCH 26.9 (25.0-35.0) pg MCHC 29.9 L (31.0-37.0) g/dL RDW 16.0 H (11.5-15.5) % Plt Count 538 H D (150-450) k/uL MPV 6.5 Neutrophils % 56 % Lymphocytes % 32 % Monocytes % 7 % Eosinophils % 2 % Basophils % 1 % Neutrophils # 3.1 (1.3-7.7) k/uL Lymphocytes # 1.8 (1.0-4.8) k/uL Monocytes # 0.4 (0-1.0) k/uL Eosinophils # 0.1 (0-0.7) k/uL Basophils # 0.1 (0-0.2) k/uL Hypochromasia Moderate Anisocytosis Slight Sodium 139 (137-145) mmol/L Potassium 5.1 (3.5-5.1) mmol/L Chloride 101 (98-107) mmol/L Carbon Dioxide 33 H (22-30) mmol/L Anion Gap 5 mmol/L BUN 16 (7-17) mg/dL Creatinine 0.85 (0.52-1.04) mg/dL Est GFR (CKD-EPI)AfAm 71 (>60 ml/min/1.73 sqM) Est GFR (CKD-EPI)NonAf 62 (>60 ml/min/1.73 sqM) Glucose 89 (74-99) mg/dL Calcium 9.3 (8.4-10.2) mg/dL Influenza Type A (PCR) Not Detected (Not Detectd) Influenza Type B (PCR) Not Detected (Not Detectd) RSV (PCR) Not Detected (Not Detectd) SARS-CoV-2 (PCR) Not Detected (Not Detectd) Disposition Clinical Impression: Hypoxia Disposition: ADMITTED IP TO THIS HOSP Condition: Fair Referrals: Tacos Saha MD [Primary Care Provider] - 1-2 days Decision Time: 15:54
[2023-05-13 14:21] LABS: Anisocytosis Slight; Basophils # (A) 0.1 k/uL (0-0.2); Basophils % (A) 1 %; Eosinophils # (A) 0.1 k/uL (0-0.7); Eosinophils % (A) 2 %; HGB 12.3 gm/dL (11.4-16.0); Hypochromasia Moderate; Lymphocytes # (A) 1.8 k/uL (1.0-4.8); Lymphocytes % (A) 32 %; MCH 26.9 pg (25.0-35.0); MCHC 29.9 g/dL (31.0-37.0); MCV 89.8 fL (80.0-100.0); Mean Platelet Volume 6.5; Monocytes # (A) 0.4 k/uL (0-1.0); Monocytes % (A) 7 %; Neutrophils # (A) 3.1 k/uL (1.3-7.7); Neutrophils % (A) 56 %; RBC 4.56 m/uL (3.80-5.40); WBC 5.6 k/uL (3.8-10.6)
[2023-05-13 14:36] LABS: African American GFR (CKD) 71 (>60 ml/min/1.73 sqM); Anion Gap 5 mmol/L; Blood Urea Nitrogen 16 mg/dL (7-17); Calcium 9.3 mg/dL (8.4-10.2); Carbon Dioxide 33 mmol/L (22-30); Chloride 101 mmol/L (98-107); Glucose 89 mg/dL (74-99); Non-African American GFR(CKD) 62 (>60 ml/min/1.73 sqM); Platelet Count 538 k/uL (150-450); Sodium 139 mmol/L (137-145)
[2023-05-13 14:39] LABS: Potassium 5.1 mmol/L (3.5-5.1)
--- NOTE | 2023-05-13 14:56 | XR ---
EXAMINATION TYPE: XR chest 2V DATE OF EXAM: 05/13/2023 2:32 PM CLINICAL INDICATION:Female, 88 years old with history of cough; [facility] COMPARISON: Chest radiographs from 03/04/2023 TECHNIQUE: XR chest 2V Frontal and lateral views of the chest. FINDINGS: Lungs/Pleura: Bibasilar hazy airspace opacities are identified. No evidence of pleural effusion or pn eumothorax. Pulmonary vascularity: Unremarkable. Heart/mediastinum: Cardiomediastinal silhouette is unremarkable. Musculoskeletal: No acute osseous pathology. IMPRESSION: Bibasilar airspace disease, may represent developing infectious/inflammatory process.
[2023-05-13] MEDS ORDERED: RX INFO: IV CONTRAST WAS GIVEN 1 EACH MISC MISCELLANE PRN (15:08)
[2023-05-13] MEDS: cefTRIAXone IN SWFI 1,000 MG/10 ML SYRINGE IVP STA (15:36)
[2023-05-13] MEDS: AZITHROMYCIN 500 MG in SODIUM CHLORIDE 0.9% 250 ML IVPB STA (15:36)
--- NOTE | 2023-05-13 15:41 | CT ---
EXAMINATION TYPE: CT chest w con CT DLP: 267.3 mGycm, Automated exposure control for dose reduction was used. DATE OF EXAM: 05/13/2023 3:33 PM COMPARISON: Chest radiograph from same day. CLINICAL INDICATION:Female, 88 years old with history of hypoxia; PHH, hypoxia. pt unable to raise ar ms for scan. TECHNIQUE: Multiple axial images were obtained through the chest. Sagittal and coronal reformats were created for review. Contrast used:100ml mL of Isovue 370 with IV Contrast (None if empty) Oral contrast used: (None if empty) FINDINGS: LUNGS/ PLEURA: Emphysematous changes are identified in the lung apices. Few scattered groundglass opa cities are present in the left lung bases. Subsegmental atelectasis present in the lung bases. AIRWAY: Patent and unremarkable. HEART: Size within normal limits. MEDIASTINUM: No gross evidence of adenopathy. VASCULATURE: No aortic aneurysm. MUSCULOSKELETAL: Degenerative changes of the bilateral glenohumeral joints. Moderate multilevel degen erative changes of the thoracic spine. SOFT TISSUES/LYMPH NODES: Unremarkable. LOWER NECK: No significant findings. UPPER ABDOMEN: Stable pancreatic cysts IMPRESSION: Emphysematous changes of the lungs with few scattered groundglass opacities in the left lung base, li jarad representing developing infectious/inflammatory process.
[2023-05-13] MEDS ORDERED: NALOXONE 0.4 MG/ML 1 ML VIAL IV PRN (15:47)
[2023-05-13] MEDS: SODIUM CHLORIDE 0.9% 1,000 ML IV SCH ×2 (16:17→17:04)
[2023-05-13] MEDS ORDERED: guaiFENesin-Coden 100-10MG/5ML 10 ML CUP PO PRN (16:24)
[2023-05-13] MEDS ORDERED: ACETAMINOPHEN TAB 325 MG TAB PO PRN (16:24)
[2023-05-13] MEDS: methylPREDNISolone SOD SUCCI 125 MG/2 ML VIAL IV SCH (17:54)
[2023-05-13] MEDS ORDERED: LIDOCAINE 4% PATCH TOPICAL PRN (17:55)
[2023-05-13] MEDS ORDERED: ALBUTEROL HFA INHALER INHALATION PRN (17:55)
[2023-05-13] MEDS ORDERED: Acetaminophen-Codeine 300-30mg TAB PO PRN (17:55)
[2023-05-13] MEDS: SYMBICORT 160-4.5 MCG INHALER INHALATION SCH (19:41)
[2023-05-13] MEDS: DENOSUMAB 60 MG/ML 1 ML SYRINGE SQ SCH (19:53)
[2023-05-13] MEDS: MELATONIN 5 MG TABLET PO SCH (22:15)
[2023-05-13] MEDS: DOXYCYCLINE 100 MG CAP PO SCH (22:15)
[2023-05-13] MEDS: APIXABAN 5 MG TAB PO SCH (22:15)
[2023-05-13] MEDS: guaiFENesin 600 MG TABLET.ER PO SCH (22:16)
[2023-05-13] MEDS: ATORVASTATIN 10 MG TAB PO SCH (22:16)
[2023-05-14 08:45] LABS: BUN/Creat Ratio 15.25 Ratio (12.00-20.00); Blood Urea Nitrogen 12.2 mg/dL (9.0-27.0); Carbon Dioxide 29.6 mmol/L (21.6-31.8); Chloride 103 mmol/L (96-109); Glucose 165 mg/dL (70-110); Potassium 5.5 mmol/L (3.5-5.5); Sodium 143 mmol/L (135-145)
[2023-05-14] MEDS: DULoxetine HCL 30 MG CAPSULE.DR PO SCH (08:54)
[2023-05-14] MEDS: amLODIPine 10 MG TAB PO SCH (08:54)
[2023-05-14] MEDS: CLOPIDOGREL 75 MG TAB PO SCH (08:54)
[2023-05-14] MEDS: ISOSORBIDE MONONITRATE ER 30 MG TAB.ER.24H PO SCH (08:55)
[2023-05-14] MEDS: CHOLECALCIFEROL 25 MCG (1000 IU) TABLET PO SCH (08:55)
[2023-05-14] MEDS: ASCORBIC ACID 500 MG TAB PO SCH (08:55)
[2023-05-14] MEDS: PANTOPRAZOLE 40 MG TABLET PO SCH (08:55)
[2023-05-14] MEDS: FERROUS SULFATE 325 MG TAB PO SCH (08:55)
[2023-05-14] MEDS: FUROSEMIDE 20 MG TAB PO SCH (08:55)
[2023-05-14 09:27] LABS: HCT 42.5 % (37.2-46.3); HGB 12.6 g/dL (12.0-15.0); MCH 26.7 pg (27.0-32.0); MCHC 29.6 g/dL (32.0-37.0); Mean Platelet Volume 8.5 FL (9.5-12.2); NRBC Per 100 WBC 0 X 10*3/uL (0.00-0.01); Platelet Count 580 X 10*3/uL (140-440); RBC 4.72 X 10*6/uL (4.10-5.20)
[2023-05-14 10:08] LABS: Basophils # (A) 0.01 X 10*3/uL (0.00-0.10); Basophils % (A) 0.3 %; Eosinophils # (A) 0 X 10*3/uL (0.04-0.35); Eosinophils % (A) 0 %; Lymphocytes # (A) 0.68 X 10*3/uL (0.90-5.00); Lymphocytes % (A) 18.4 %; Monocytes # (A) 0.02 X 10*3/uL (0.20-1.00); Monocytes % (A) 0.5 %; Neutrophils # (A) 2.97 X 10*3/uL (1.80-7.70); Neutrophils % (A) 80.3 %; RBC Morphology Normal (Normal)
--- NOTE | 2023-05-14 15:39 | P.CNPUL ---
History of Present Illness Consult date: 05/14/23 Reason for consult: dyspnea, COPD History of present illness: This is an 88-year-old female patient with chronic advanced COPD with chronic hypoxic respiratory failure maintained on O2 at 2 L/min nasal cannula. The patient came into the emergency department yesterday with increase in cough and congestion. Despite her age and advanced COPD, the patient has been living independently at home and her main caregiver has been her son has been very much involved in her care. No reported fever chills or night sweats. No pleurisy or hemoptysis. She is having generalized weakness. Her white cell count at the time of admission was 3.7 hemoglobin 12.6 and a platelet count of 580. BUN is at 12 with a creatinine of 0.8 and sodium levels at 143. The viral panel has been negative. CT of the chest was completed and showed emphysema with some few scattered groundglass opacity in left lung base. No other acute abnormalities have been noted. Chest x-ray at the time of admission showed limited bibasilar airspace disease. Based on that, the patient was hospitalized for [employer] exacerbation suspected pneumonia. She is currently on doxycycline. She is also on bronchodilators and steroids and the patient is currently on Solu-Medrol 60 mg every 6 hours. No altered mentation. No interval worsening in her oxygen requirements and the patient remains on O2 at 2 L with a pulse ox of 94%. No nausea. No vomiting. No emesis. No altered mentation. On a separate note, the patient has had previous history of CVA and she has limited mobility. She has hypertension hyperlipidemia and previous history of seizure disorder and DVT. She has been maintained on long-term anticoagulation and she is on Eliquis. She does have some residual left-sided weakness. She also has hypertension and hyperlipidemia and previous history of breast cancer. Review of Systems Constitutional: Reports as per HPI, Reports lethargy, Reports weakness Eyes: denies as per HPI, denies blurred vision, denies bulging eye, denies decreased vision, denies diplopia, denies discharge, denies dry eye, denies irritation, denies itching, denies pain, denies photophobia, denies loss of peripheral vision, denies loss of vision, denies tunnel vision/blind spots Ears: deny: decreased hearing, ear discharge, earache, tinnitus Ears, nose, mouth and throat: Reports as per HPI Breasts: absent: as per HPI, change in shape, gynecomastia, masses, nipple discharge, pain, skin changes, swelling Cardiovascular: Reports decreased exercise tolerance, Reports shortness of breath Respiratory: Reports dyspnea, Reports home oxygen, interval worsening shortness of breath Gastrointestinal: Reports as per HPI Genitourinary: Reports as per HPI Menstruation: Reports as per HPI Musculoskeletal: Reports as per HPI Musculoskeletal: absent: ankle pain, ankle stiffness, ankle swelling Integumentary: Reports as per HPI Neurological: No confusion, Reports gait dysfunction, Reports weakness Psychiatric: Reports as per HPI Endocrine: Reports as per HPI, Reports fatigue Hematologic/Lymphatic: Reports as per HPI Allergic/Immunologic: Reports as per HPI 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,, emphysema; hypoglycemia, hx breast cancer, History of Any Multi-Drug Resistant Organisms: None Reported Past Surgical History: Back Surgery, Breast Surgery, Cholecystectomy, Heart Catheterization Additional Past Surgical History / Comment(s): L SUBCLAVIAN ARTERY BYPASS, Rt CAROTID ENDARTECTOMY, rt breast lumpectomy Past Anesthesia/Blood Transfusion Reactions: No Reported Reaction Additional Past Anesthesia/Blood Transfusion Reaction / Comment(s): . Past Psychological History: Anxiety Additional Psychological History / Comment(s): . Smoking Status: Former smoker Past Alcohol Use History: None Reported Additional Past Alcohol Use History / Comment(s): 1 PPD STARTED SMOKING AT AGE 15 QUIT IN 1984 SMOKED 1PPD Past Drug Use History: None Reported - Past Family History Brother(s) Family Medical History: Cancer Sister(s) Family Medical History: Cancer Mother Family Medical History: Coronary Artery Disease (CAD) Additional Family Medical History / Comment(s): enlarged heart Father Family Medical History: Coronary Artery Disease (CAD), CVA/TIA Medications and Allergies Home Medications Medication Instructions Recorded Confirmed Type Pantoprazole [Protonix] 40 mg PO DAILY 04/11/18 05/13/23 History Albuterol Inhaler [Ventolin Hfa 2 puff INHALATION RT-Q6H PRN 04/29/22 05/13/23 History Inhaler] Apixaban [Eliquis] 2.5 mg PO BID 04/29/22 05/13/23 History DULoxetine HCL [Cymbalta] 30 mg PO DAILY 04/29/22 05/13/23 History Denosumab [Prolia] 60 mg SQ Q180D 04/29/22 05/13/23 History Furosemide [Lasix] 20 mg PO DAILY 04/29/22 05/13/23 History Isosorbide Mononitrate ER [Imdur] 30 mg PO DAILY 04/29/22 05/13/23 History Melatonin 5 mg PO HS 04/29/22 05/13/23 History Cholecalciferol [Vitamin D3 (25 25 mcg PO DAILY 09/30/22 05/13/23 History Mcg = 1000 Iu)] Ascorbic Acid [Vitamin C] 500 mg PO DAILY 10/27/22 05/13/23 History Acetaminophen-Codeine 300-30mg 1 tab PO BID PRN #4 tab 12/28/22 05/13/23 Rx [Tylenol w/codeine #3] Clopidogrel [Plavix] 75 mg PO DAILY 30 Days #30 tab 12/28/22 05/13/23 Rx Apple Cider Vinegar Chew 1 tab PO DAILY 03/04/23 05/13/23 History Atorvastatin [Lipitor] 10 mg PO HS 03/04/23 05/13/23 History Ferrous Sulfate [Iron (65 MG 325 mg PO DAILY 03/04/23 05/13/23 History Elemental)] amLODIPine [Norvasc] 10 mg PO DAILY #30 tab 03/08/23 05/13/23 Rx Lidocaine 5% Patch [Lidoderm 5% 1 patch TOPICAL DAILY PRN 14 Days 03/15/23 05/13/23 Rx Patch] #14 patch Allergies Allergy/AdvReac Type Severity Reaction Status Date / Time No Known Allergies Allergy Verified 05/13/23 16:26 Physical Exam Vitals: Vital Signs Temp Pulse Pulse Resp BP BP Pulse Ox 05/14/23 08:47 96 05/14/23 07:00 97.5 F L 80 16 127/68 96 05/14/23 02:05 98.0 F 87 16 145/76 95 05/14/23 02:00 16 05/13/23 19:37 97.5 F L 72 16 135/63 95 03/17/24 17:55 97.6 F 76 15 157/71 98 05/13/23 17:20 79 14 137/70 98 05/13/23 15:41 80 16 140/76 97 05/13/23 12:27 97.5 F L 55 L 16 134/61 91 L Intake and Output 05/13/23 05/14/23 05/14/23 22:59 06:59 14:59 Intake Total 118 Balance 118 Intake: Oral 118 Other: Voiding Method Bedside Commode # Voids 1 # Bowel Movements 0 Weight 68.039 kg GENERAL: The patient is alert and oriented x 3, not in any acute distress. Well developed, well nourished. The patient is currently on 2 L of oxygen by nasal cannula, no signs of any respiratory distress Head exam was generally normal. There was no scleral icterus or corneal arcus. Mucous membranes were moist. HEENT: Pupils are round and equally reacting to light. EOMI. CARDIOVASCULAR: S1 and S2 present. No murmurs, rubs, or gallops. PULMONARY: Chest is clear to auscultation, no wheezing or crackles. ABDOMEN: Soft, nontender, nondistended, normoactive bowel sounds. No palpable organomegaly. MUSCULOSKELETAL: No joint swelling or deformity. EXTREMITIES: No cyanosis, clubbing, or pedal edema. NEUROLOGICAL: motor weakness in the left, chronic. Obvious gait dysfunction. Generalized global weakness. Results - Laboratory Findings CBC and BMP: 05/14/23 05:37 05/14/23 05:37 Abnormal lab findings: Abnormal Labs 05/13/23 05/13/23 05/14/23 13:29 13:29 05:37 WBC 3.70 L MCH 26.7 L MCHC 29.9 L 29.6 L RDW 16.0 H 17.0 H Plt Count 538 H D 580 H MPV 8.5 L Lymphocytes # 0.68 L Monocytes # 0.02 L Eosinophils # 0 L Carbon Dioxide 33 H Glucose 05/14/23 05:37 WBC MCH MCHC RDW Plt Count MPV Lymphocytes # Monocytes # Eosinophils # Carbon Dioxide Glucose 165 H - Diagnostic Findings Chest x-ray: image reviewed Assessment and Plan Plan: Acute exacerbation of COPD with questionable left basilar pneumonia Acute on chronic shortness of breath without interval worsening oxygenation Chronic COPD and chronic hypoxic respiratory failure maintained on O2 at 2 L/min nasal cannula COPD with diffuse centrilobular emphysema. The patient also has scattered subpleural areas scarring, chronic. Previous history of CVA involving the right frontal and left cerebellar based on the CAT scan findings. Most recent MRI of the brain that was done on 08/21/2022 showed age-related atrophy and chronic small vessel ischemic changes. No enhancing lesions seen. Left-sided weakness, chronic History of breast cancer Hypertension Hyperlipidemia Previous history of DVT Plan Continue oxygen therapy and titrate oxygen flow to maintain saturation above 90% Agree on doxycycline Agree on IV Solu-Medrol [facility] Sputum Gram stain and culture Continue anticoagulation with Eliquis Continue Lasix Resume home medications Will follow
--- NOTE | 2023-05-14 21:26 | P.HPIM ---
History of Present Illness H&P Date: 05/14/23 HISTORY OF PRESENT ILLNESS: 88-year-old with multimedical problems known to have history of COPD, A-fib, memory loss, recurrent UTI, Who apparently has been having severe signs and symptoms of URI with cough productive of dark phlegm along with worsening shortness of breath and dyspnea with mild hypoxia apparently the son who called his mom and found her to be in extreme out of breath, he called 911 EMS ended up bringing the patient to the emergency department for evaluation, she was seen and evaluated for altered mental status along with confusion and dyspnea with shortness of breath. Chest x-ray showed bibasilar infiltrate and infection, CAT scan of the chest shows emphysematous change with scattered peripheral groundglass glass opacification of the left base most likely represent infection or infectious process or scar tissue from recent or previous infection. With her current symptom white blood cell was 5600 with no left shift, COVID-19 and influenza and RSV are all negative, chemistry did not show any major abnormality or change. She was started on Rocephin and azithromycin along with steroid she was on home doxycycline will continue updraft treatment [id number] patient to be seen pulmonary. REVIEW OF SYSTEMS: CONSTITUTIONAL: Well-developed elderly in mild respiratory distress. EYES: No icterus sclerae, no conjunctivitis. EARS, NOSE, MOUTH, THROAT, and FACE: No sore throat, lymphadenopathy, carotid bruits or deformity. RESPIRATORY: Positive shortness of breath cough and wheezes. CARDIOVASCULAR: Positive PND orthopnea palpitation. GASTROINTESTINAL: Abdominal discomfort with nausea no vomiting diarrhea constipation no GI bleed no distention or masses. GENITOURINARY: recurrent UTI with mild incontinence. INTEGUMENT/BREAST: Negative for any muscular injury with mild osteoarthritis.. HEMATOLOGIC/LYMPHATIC: Negative for bleed or purpura. MUSCULOSKELTAL: Generalized muscle and joint pain. NEURLOGICAL: No LOC, Sz or syncope, blurred vision dizziness or abnormality.. Slight memory loss. BEHAVIORAL/PSYCH: Negative. ENDOCRINE: Negative. PHYSICAL EXAMINATION: General Appearance: Alert, elderly looks in no distress. Neck HEENT: Supple, no lymphadenopathy, no thyroid enlargement, no carotid bruits. Slight congestion and swelling the back of her throat. Lungs: Clear to auscultation with crackles in the bases positive rhonchi and slight increased wheezes on the right side. Chest Wall: Decreased expansion with deep inspiration no tenderness and no de formity was found on exam, no costochondral pain or discomfort. Heart: Regular rate and rhythm, S1, S2 normal, no murmur, rub or gallop. Back: Symmetric, no curvature, ROM normal, no CVA tenderness. Abdomen: Soft, non-tender, bowel sounds active all four quadrants, no masses, no organomegaly. Extremities: Trace edema decreased pulse dorsalis pedis bilaterally with mild arthritis and slight discoloration from the knee down. Pulses: 2+ and symmetric. Skin: Skin color, texture, tugor normal, no rashes or lesions. Neurologic: Alert oriented with slight confusion cranial nerves II through XII intact, positive generalized weakness still have slight weakness on the left side compared to the right side. ASSESSMENT AND PLAN: _Severe dyspnea and shortness of breath with hypoxia most likely consistent with bilateral pneumonia. _Bilateral pneumonia with worsening left side consistent with groundglass picture with mild fibrosis most likely from severe infection and scar tissue from recent inflammation. Continue current antibiotic waiting for culture. _COPD with mild worsening symptoms: Continue Solu-Medrol, continue guaifenesin Along with updraft treatment [id number] and steroid nebulizer. _Paroxysmal atrial fibrillation: Pulse rate is under control continue on Eliquis, patient become extremely and slow pulse rate with beta-noam has been off. _History of CVA: Still have slight residual with abnormal balance and gait and generalized weakness with mild memory loss. Continue anticoagulation and continue with her management of blood pressure. _Hypertension: Blood pressure is well-controlled currently on amlodipine 10 mg a day, and continue isosorbide 30 mg a day still on diuretics. _History of seizure disorders: No active seizure activity at this point doing well stable has been off antiseizure. _Previous history of DVT: Still on anticoagulation with Eliquis. _Hyperlipidemia: Will continue atorvastatin 10 mg a day. _DVT prophylaxis: Still on anticoagulation with Eliquis. _GI prophylaxis: Will continue pantoprazole 40 mg a day. CODE STATUS: Full code. Admit patient to the inpatient status for more than 2 night stay. 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 Past Psychological History: Anxiety Additional Psychological History / Comment(s): . Smoking Status: Former smoker Past Alcohol Use History: None Reported Additional Past Alcohol Use History / Comment(s): 1 PPD STARTED SMOKING AT AGE 15 QUIT IN 1984 SMOKED 1PPD Past Drug Use History: None Reported - Past Family History Brother(s) Family Medical History: Cancer Sister(s) Family Medical History: Cancer Mother Family Medical History: Coronary Artery Disease (CAD) Additional Family Medical History / Comment(s): enlarged heart Father Family Medical History: Coronary Artery Disease (CAD), CVA/TIA Medications and Allergies Home Medications Medication Instructions Recorded Confirmed Type Pantoprazole [Protonix] 40 mg PO DAILY 04/11/18 05/13/23 History Albuterol Inhaler [Ventolin Hfa 2 puff INHALATION RT-Q6H PRN 04/29/22 05/13/23 History Inhaler] Apixaban [Eliquis] 2.5 mg PO BID 04/29/22 05/13/23 History DULoxetine HCL [Cymbalta] 30 mg PO DAILY 04/29/22 05/13/23 History Denosumab [Prolia] 60 mg SQ Q180D 04/29/22 05/13/23 History Furosemide [Lasix] 20 mg PO DAILY 04/29/22 05/13/23 History Isosorbide Mononitrate ER [Imdur] 30 mg PO DAILY 04/29/22 05/13/23 History Melatonin 5 mg PO HS 04/29/22 05/13/23 History Cholecalciferol [Vitamin D3 (25 25 mcg PO DAILY 09/30/22 05/13/23 History Mcg = 1000 Iu)] Ascorbic Acid [Vitamin C] 500 mg PO DAILY 10/27/22 05/13/23 History Acetaminophen-Codeine 300-30mg 1 tab PO BID PRN #4 tab 12/28/22 05/13/23 Rx [Tylenol w/codeine #3] Clopidogrel [Plavix] 75 mg PO DAILY 30 Days #30 tab 12/28/22 05/13/23 Rx Apple Cider Vinegar Chew 1 tab PO DAILY 03/04/23 05/13/23 History Atorvastatin [Lipitor] 10 mg PO HS 03/04/23 05/13/23 History Ferrous Sulfate [Iron (65 MG 325 mg PO DAILY 03/04/23 05/13/23 History Elemental)] amLODIPine [Norvasc] 10 mg PO DAILY #30 tab 03/08/23 05/13/23 Rx Lidocaine 5% Patch [Lidoderm 5% 1 patch TOPICAL DAILY PRN 14 Days 03/15/23 05/13/23 Rx Patch] #14 patch Allergies Allergy/AdvReac Type Severity Reaction Status Date / Time No Known Allergies Allergy Verified 05/13/23 16:26 Physical Exam Vitals: Vital Signs Temp Pulse Pulse Resp BP BP Pulse Ox 05/14/23 02:05 98.0 F 87 16 145/76 95 05/14/23 02:00 16 05/13/23 19:37 97.5 F L 72 16 135/63 95 05/13/23 17:55 97.6 F 76 15 157/71 98 05/13/23 17:20 79 14 137/70 98 05/13/23 15:41 80 16 140/76 97 05/13/23 12:27 97.5 F L 55 L 16 134/61 91 L Intake and Output 05/13/23 05/13/23 05/14/23 14:59 22:59 06:59 Other: # Voids 1 # Bowel Movements 0 Weight 68.039 kg 68.039 kg Results CBC & Chem 7: 05/14/23 05:37 05/14/23 05:37 Labs: Abnormal Lab Results - Last 24 Hours (Table) 05/13/23 05/13/23 Range/Units 13:29 13:29 MCHC 29.9 L (31.0-37.0) g/dL RDW 16.0 H (11.5-15.5) % Plt Count 538 H D (150-450) k/uL Carbon Dioxide 33 H (22-30) mmol/L Thrombosis Risk Factor Assmnt - Choose All That Apply Any of the Below Risk Factors Present?: Yes Each Factor Represents 1 point: Abnormal pulmonary function (COPD) Other Risk Factors: Yes Each Risk Factor Represents 3 Points: Age 75 years or older Other congenital or acquired thrombophilia - If yes, enter type in comment: No Thrombosis Risk Factor Assessment Total Risk Factor Score: 4 Thrombosis Risk Factor Assessment Level: Moderate Risk
--- NOTE | 2023-05-15 11:56 | P.PN ---
Subjective Progress Note Date: 05/15/23 This is an 88-year-old female patient with chronic advanced COPD with chronic h ypoxic respiratory failure maintained on O2 at 2 L/min nasal cannula. The patient came into the emergency department yesterday with increase in cough and congestion. Despite her age and advanced COPD, the patient has been living independently at home and her main caregiver has been her son has been very much involved in her care. No reported fever chills or night sweats. No pleurisy or hemoptysis. She is having generalized weakness. Her white cell count at the time of admission was 3.7 hemoglobin 12.6 and a platelet count of 580. BUN is at 12 with a creatinine of 0.8 and sodium levels at 143. The viral panel has been negative. CT of the chest was completed and showed emphysema with some few scattered groundglass opacity in left lung base. No other acute abnormalities have been noted. Chest x-ray at the time of admission showed limited bibasilar airspace disease. 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 She is currently on doxycycline. She is also on bronchodilators and steroids and the patient is currently on Solu-Medrol 60 m g every 6 hours. No altered mentation. No interval worsening in her oxygen requirements and the patient remains on O2 at 2 L with a pulse ox of 94%. No nausea. No vomiting. No emesis. No altered mentation. On a separate note, the patient has had previous history of CVA and she has limited mobility. She has hypertension hyperlipidemia and previous history of seizure disorder and DVT. She has been maintained on long-term anticoagulation and she is on Eliquis. She does have some residual left-sided weakness. She also has hypertension and hyperlipidemia and previous history of breast cancer. On today's evaluation of , the patient is being seen for a follow-up. Feeling better compared to yesterday. She is less short of breath is bronchospastic and wheezy compared to yesterday. White cell count from yesterday was at 3.7 with hemoglobin 4.6. Rest of the blood work was es sentially within normal limits. She remains on 2 L of oxygen by nasal cannula. The viral panel has been negative. Remains on Symbicort as maintenance, IV Solu-Medrol 60 mg every 6 hours and she is also on albuterol HFA 2 puffs 4 times a day. Blood cultures have been negative thus far. Awake alert and communicating. Objective - Vital Signs Vital signs: Vital Signs Temp 98.4 F 05/15/23 07:00 Pulse 94 05/15/23 08:44 Resp 14 05/15/23 08:44 BP 144/72 05/15/23 08:44 Pulse Ox 98 05/15/23 09:10 FiO2 Intake & Output 05/14/23 05/15/23 05/15/23 18:59 06:59 18:59 Intake Total 236 Output Total 250 Balance -14 Intake: Oral 236 Output: Post Void Residual 250 Other: Voiding Method Bedside Commode Bedside Commode # Voids 1 1 - Exam GENERAL: The patient is alert and oriented x 3, not in any acute distress. Well developed, well nourished. The patient is currently on 2 L of oxygen by nasal cannula, no signs of any respiratory distress Head exam was generally normal. There was no scleral icterus or corneal arcus. Mucous membranes were moist. HEENT: Pupils are round and equally reacting to light. EOMI. CARDIOVASCULAR: S1 and S2 present. No murmurs, rubs, or gallops. PULMONARY: Chest is clear to auscultation, no wheezing or crackles. ABDOMEN: Soft, nontender, nondistended, normoactive bowel sounds. No palpable organomegaly. MUSCULOSKELETAL: No joint swelling or deformity. EXTREMITIES: No cyanosis, clubbing, or pedal edema. NEUROLOGICAL: motor weakness in the left, chronic. Obvious gait dysfunction. Generalized global weakness. - Labs CBC & Chem 7: 05/14/23 05:37 05/14/23 05:37 Labs: Abnormal Lab Results - Last 24 Hours (Table) 05/14/23 Range/Units 05:37 Lymphocytes # 0.68 L (0.90-5.00) X 10*3/uL Monocytes # 0.02 L (0.20-1.00) X 10*3/uL Eosinophils # 0 L (0.04-0.35) X 10*3/uL Microbiology - Last 24 Hours (Table) 05/13/23 15:14 Blood Culture - Preliminary Blood 05/13/23 15:14 Blood Culture - Preliminary Blood Assessment and Plan Plan: Acute exacerbation of COPD with questionable left basilar pneumonia, improving Acute on chronic shortness of breath without interval worsening oxygenation Chronic COPD and chronic hypoxic respiratory failure maintained on O2 at 2 L/min nasal cannula COPD with diffuse centrilobular emphysema. The patient also has scattered subpleural areas scarring, chronic. Previous history of CVA involving the right frontal and left cerebellar based on the CAT scan findings. Most recent MRI of the brain that was done on 08/21/2022 showed age-related atrophy and chronic small vessel ischemic changes. No enhancing lesions seen. Left-sided weakness, chronic History of breast cancer Hypertension Hyperlipidemia Previous history of DVT Plan Continue oxygen therapy and titrate oxygen flow to maintain saturation above 90%, oxygenation is stable and the patient is clinically improving Continue doxycycline Continue IV Solu-Medrol DuoNeb [facility] Sputum Gram stain and culture is still pending. Meanwhile the blood cultures are negative. Continue anticoagulation with Eliquis Continue Lasix Resume home medications Will follow
[2023-05-15] MEDS: ALPRAZolam 0.25 MG TAB PO PRN (19:52)
--- NOTE | 2023-05-16 06:37 | P.PN ---
Subjective Progress Note Date: 05/15/23 HISTORY OF PRESENT ILLNESS: 88-year-old with multimedical problems known to have history of COPD, A-fib, memory loss, recurrent UTI, Who apparently has been having severe signs and symptoms of URI with cough productive of dark phlegm along with worsening shortness of breath and dyspnea with mild hypoxia apparently the son who called his mom and found her to be in extreme out of breath, he called 911 EMS ended up bringing the patient to the emergency department for evaluation, she was seen and evaluated for altered mental status along with confusion and dyspnea with shortness of breath. Chest x-ray showed bibasilar infiltrate and infection, CAT scan of the chest shows emphysematous change with scattered peripheral groundglass glass opacification of the left base most likely represent infection or infectious process or scar tissue from recent or previous infection. With her current symptom white blood cell was 5600 with no left shift, COVID-19 and influenza and RSV are all negative, chemistry did not show any major abnormality or change. She was started on Rocephin and azithromycin along with steroid she was on home doxycycline will continue updraft treatment [id number] patient to be seen pulmonary. 05/15/2023: Patient seen pulmonary agree with the current management patient was originally on doxycycline orally for UTI was started in the hospital on azithromycin and Rocephin for pneumonitis which we will continue Rocephin for now and maybe we can help doxycycline till discharge. Meanwhile he still mildly hypoxic requiring O2 between 2 and 3 L still have diffuse emphysema with COPD but should continue to get more aggressive management. Patient has significant memory loss with MRI of the brain with the last 6 months showed chronic small vessel disease and significant atrophy may be adding little bit more aggressive management for dementia can be more helpful. Will continue antibiotics along with oxygen updraft treatment and steroid might be helpful again for the next day or 2 before switching patient back to oral meds. Patient is getting more confused with slight combative behavior still manageable on very small dose of benzodiazepine like alprazolam 0.25 mg up to 3 times a day. REVIEW OF SYSTEMS: CONSTITUTIONAL: Well-developed elderly in mild respiratory distress. EYES: No icterus sclerae, no conjunctivitis. EARS, NOSE, MOUTH, THROAT, and FACE: No sore throat, lymphadenopathy, carotid bruits or deformity. RESPIRATORY: Positive shortness of breath cough and wheezes. CARDIOVASCULAR: Positive PND orthopnea palpitation. GASTROINTESTINAL: Abdominal discomfort with nausea no vomiting diarrhea constipation no GI bleed no distention or masses. GENITOURINARY: recurrent UTI with mild incontinence. INTEGUMENT/BREAST: Negative for any muscular injury with mild osteoarthritis.. HEMATOLOGIC/LYMPHATIC: Negative for bleed or purpura. MUSCULOSKELTAL: Generalized muscle and joint pain. NEURLOGICAL: No LOC, Sz or syncope, blurred vision dizziness or abnormality.. Slight memory loss. BEHAVIORAL/PSYCH: Negative. ENDOCRINE: Negative. PHYSICAL EXAMINATION: General Appearance: Alert, elderly looks in no distress. Neck HEENT: Supple, no lymphadenopathy, no thyroid enlargement, no carotid bruits. Slight congestion and swelling the back of her throat. Lungs: Clear to auscultation with crackles in the bases positive rhonchi and slight increased wheezes on the right side. Chest Wall: Decreased expansion with deep inspiration no tenderness and no deformity was found on exam, no costochondral pain or discomfort. Heart: Regular rate and rhythm, S1, S2 normal, no murmur, rub or gallop. Back: Symmetric, no curvature, ROM normal, no CVA tenderness. Abdomen: Soft, non-tender, bowel sounds active all four quadrants, no masses, no organomegaly. Extremities: Trace edema decreased pulse dorsalis pedis bilaterally with mild arthritis and slight discoloration from the knee down. Pulses: 2+ and symmetric. Skin: Skin color, texture, tugor normal, no rashes or lesions. Neurologic: Alert oriented with slight confusion cranial nerves II through XII intact, positive generalized weakness still have slight weakness on the left side compared to the right side. ASSESSMENT AND PLAN: _Severe dyspnea and shortness of breath with hypoxia most likely consistent with bilateral pneumonia. Along with COPD exacerbation continue antibiotic, steroid and continue updraft [id number]. _Bilateral pneumonia with worsening left side consistent with groundglass picture with mild fibrosis most likely from severe infection and scar tissue from recent inflammation. She was on doxycycline as an outpatient continue Radha wang at this point and probably keep the doxycycline management with doxycycline can be done as a longer term when she leaves the hospital. _COPD with mild worsening symptoms: Continue Solu-Medrol, continue guaifenesin Along with updraft treatment [id number] and steroid nebulizer. _Paroxysmal atrial fibrillation: Pulse rate is under control continue on Eliquis, patient become extremely and slow pulse rate with beta-noam has been off. _History of CVA: Still have slight residual with abnormal balance and gait and generalized weakness with mild memory loss. Her CVA and recurrent symptoms of encephalopathy has been causing quite a bit worsening memory loss. 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 _Hypertension: Blood pressure is well-controlled currently on amlodipine 10 mg a day, and continue isosorbide 30 mg a day still on diuretics. _History of seizure disorders: No active seizure activity at this point doing well stable has been off antiseizure. _Previous history of DVT: Still on anticoagulation with Eliquis. _Hyperlipidemia: Will continue atorvastatin 10 mg a day. Discussion and planning: Continue aggressive management for her hypoxia, COPD, pneumonia continue to titrate O2 to keep patient oxygen level at least above 92 percentile. Patient will require longer term management for recurrent UTI and with seems to do well with doxycycline on the exterminator termite she might be on it once a day for the next 60 days which originally after leaving the hospital can keep her on doxycycline for her pneumonitis twice a day for the first 10 days and then once a day for her UTI to complete 60 days. Patient is getting slightly bit more confused with worsening memory loss and dementia and probably slight owner and could be the effect of her hypoxia. Continue to work on those items also will consult PT OT and social welfare clerk to see if family need help with any short-term SNF for further management or when to do home care with extra help. Objective - Vital Signs Vital signs: Vital Signs Temp 97.4 F L 05/15/23 02:00 Pulse 90 05/15/23 02:00 Resp 16 05/14/23 15:00 BP 130/69 05/15/23 02:00 Pulse Ox 95 05/15/23 02:00 FiO2 Intake & Output 05/14/23 05/14/23 05/15/23 06:59 18:59 06:59 Intake Total 236 Output Total 250 Balance -14 Intake: Oral 236 Output: Post Void Residual 250 Other: Voiding Method Bedside Commode Bedside Commode # Voids 1 1 1 # Bowel Movements 0 - Labs CBC & Chem 7: 05/14/23 05:37 03/18/24 05:37 Labs: Abnormal Lab Results - Last 24 Hours (Table) 05/14/23 05/14/23 Range/Units 05:37 05:37 WBC 3.70 L (4.50-10.00) X 10*3/uL MCH 26.7 L (27.0-32.0) pg MCHC 29.6 L (32.0-37.0) g/dL RDW 17.0 H (11.5-14.5) % Plt Count 580 H (140-440) X 10*3/uL MPV 8.5 L (9.5-12.2) FL Lymphocytes # 0.68 L (0.90-5.00) X 10*3/uL Monocytes # 0.02 L (0.20-1.00) X 10*3/uL Eosinophils # 0 L (0.04-0.35) X 10*3/uL Glucose 165 H (70-110) mg/dL Microbiology - Last 24 Hours (Table) 05/13/23 15:14 Blood Culture - Preliminary Blood 05/13/23 15:14 Blood Culture - Preliminary Blood
--- NOTE | 2023-05-16 14:01 | P.PN ---
Subjective Progress Note Date: 05/16/23 This is an 88-year-old female patient with chronic advanced COPD with chronic h ypoxic respiratory failure maintained on O2 at 2 L/min nasal cannula. The patient came into the emergency department yesterday with increase in cough and congestion. Despite her age and advanced COPD, the patient has been living independently at home and her main caregiver has been her son has been very much involved in her care. No reported fever chills or night sweats. No pleurisy or hemoptysis. She is having generalized weakness. Her white cell count at the time of admission was 3.7 hemoglobin 12.6 and a platelet count of 580. BUN is at 12 with a creatinine of 0.8 and sodium levels at 143. The viral panel has been negative. CT of the chest was completed and showed emphysema with some few scattered groundglass opacity in left lung base. No other acute abnormalities have been noted. Chest x-ray at the time of admission showed limited bibasilar airspace disease. 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 She is currently on doxycycline. She is also on bronchodilators and steroids and the patient is currently on Solu-Medrol 60 m g every 6 hours. No altered mentation. No interval worsening in her oxygen requirements and the patient remains on O2 at 2 L with a pulse ox of 94%. No nausea. No vomiting. No emesis. No altered mentation. On a separate note, the patient has had previous history of CVA and she has limited mobility. She has hypertension hyperlipidemia and previous history of seizure disorder and DVT. She has been maintained on long-term anticoagulation and she is on Eliquis. She does have some residual left-sided weakness. She also has hypertension and hyperlipidemia and previous history of breast cancer. On today's evaluation of , the patient is being seen for a follow-up. Feeling better compared to yesterday. She is less short of breath is bronchospastic and wheezy compared to yesterday. White cell count from yesterday was at 3.7 with hemoglobin 4.6. Rest of the blood work was es sentially within normal limits. She remains on 2 L of oxygen by nasal cannula. The viral panel has been negative. Remains on Symbicort as maintenance, IV Solu-Medrol 60 mg every 6 hours and she is also on albuterol HFA 2 puffs 4 times a day. Blood cultures have been negative thus far. Awake alert and communicating. On today's evaluation of 05/16/2023, I am seeing the patient for a follow-up. Continues to have some congestion and cough and wheeze. No new complaints otherwise for now. No recent labs from today. Most recent labs are from 05/14/2023. The blood cultures have been negative. The patient is still on oxygen and she is maintained on 2 L with a pulse ox of 98%. She remains on Symbicort as maintenance and albuterol HFA and I am going to switch this patient to albuterol chest. She is on IV Rocephin. She remains on Solu-Medrol 60 mg every 6 hours. Objective - Vital Signs Vital signs: Vital Signs Temp 97.5 F L 05/16/23 07:25 Pulse 80 05/16/23 07:25 Resp 16 05/16/23 07:25 BP 148/84 05/16/23 07:25 Pulse Ox 96 05/16/23 09:13 FiO2 Intake & Output 05/15/23 05/16/23 05/16/23 18:59 06:59 18:59 Intake Total 118 Output Total 550 500 Balance -432 -500 Intake: Oral 118 Output: Urine 550 500 Other: Voiding Method Bedside Commode Diaper # Bowel Movements 1 - Exam GENERAL: The patient is alert and oriented x 3, not in any acute distress. Well developed, well nourished. The patient is currently on 2 L of oxygen by nasal cannula, no signs of any respiratory distress Head exam was generally normal. There was no scleral icterus or corneal arcus. Mucous membranes were moist. HEENT: Pupils are round and equally reacting to light. EOMI. CARDIOVASCULAR: S1 and S2 present. No murmurs, rubs, or gallops. PULMONARY: Chest is clear to auscultation, no wheezing or crackles. ABDOMEN: Soft, nontender, nondistended, normoactive bowel sounds. No palpable organomegaly. MUSCULOSKELETAL: No joint swelling or deformity. EXTREMITIES: No cyanosis, clubbing, or pedal edema. NEUROLOGICAL: motor weakness in the left, chronic. Obvious gait dysfunction. Generalized global weakness. - Labs CBC & Chem 7: 05/14/23 05:37 05/14/23 05:37 Labs: Microbiology - Last 24 Hours (Table) 05/13/23 15:14 Blood Culture - Preliminary Blood 05/13/23 15:14 Blood Culture - Preliminary Blood Assessment and Plan Plan: Acute exacerbation of COPD with questionable left basilar pneumonia, improving Acute on chronic shortness of breath without interval worsening oxygenation Chronic COPD and chronic hypoxic respiratory failure maintained on O2 at 2 L/min nasal cannula COPD with diffuse centrilobular emphysema. The patient also has scattered sub pleural areas scarring, chronic. Previous history of CVA involving the right frontal and left cerebellar based on the CAT scan findings. Most recent MRI of the brain that was done on 08/21/2022 showed age-related atrophy and chronic small vessel ischemic changes. No enhancing lesions seen. Left-sided weakness, chronic History of breast cancer Hypertension Hyperlipidemia Previous history of DVT Plan Will continue same treatment hospice patient with DuoNeb updrafts 4 times a day [id number] and discontinue Ventolin HFA. Clinically essentially the same as yesterday Continue oxygen therapy and titrate oxygen flow to maintain saturation above 90%, oxygenation is stable Continue doxycycline Continue IV Solu-Medrol DuoNeb updrafts Sputum Gram stain and culture is still pending. Meanwhile the blood cultures are negative. Continue anticoagulation with Eliquis Continue Lasix Resume home medications Will follow
[2023-05-16] MEDS: IPRATROPIUM-ALBUTEROL 3 ML NEB INHALATION SCH (15:54)
--- NOTE | 2023-05-17 06:47 | P.PN ---
Subjective Progress Note Date: 05/16/23 HISTORY OF PRESENT ILLNESS: 88-year-old with multimedical problems known to have history of COPD, A-fib, memory loss, recurrent UTI, Who apparently has been having severe signs and symptoms of URI with cough productive of dark phlegm along with worsening shortness of breath and dyspnea with mild hypoxia apparently the son who called his mom and found her to be in extreme out of breath, he called 911 EMS ended up bringing the patient to the emergency department for evaluation, she was seen and evaluated for altered mental status along with confusion and dyspnea with shortness of breath. Chest x-ray showed bibasilar infiltrate and infection, CAT scan of the chest shows emphysematous change with scattered peripheral groundglass glass opacification of the left base most likely represent infection or infectious process or scar tissue from recent or previous infection. With her current symptom white blood cell was 5600 with no left shift, COVID-19 and influenza and RSV are all negative, chemistry did not show any major abnormality or change. She was started on Rocephin and azithromycin along with steroid she was on home doxycycline will continue updraft treatment [id number] patient to be seen pulmonary. 05/15/2023: Patient seen pulmonary agree with the current management patient was originally on doxycycline orally for UTI was started in the hospital on azithromycin and Rocephin for pneumonitis which we will continue Rocephin for now and maybe we can help doxycycline till discharge. Meanwhile he still mildly hypoxic requiring O2 between 2 and 3 L still have diffuse emphysema with COPD but should continue to get more aggressive management. Patient has significant memory loss with MRI of the brain with the last 6 months showed chronic small vessel disease and significant atrophy may be adding little bit more aggressive management for dementia can be more helpful. Will continue antibiotics along with oxygen updraft treatment and steroid might be helpful again for the next day or 2 before switching patient back to oral meds. Patient is getting more confused with slight combative behavior still manageable on very small dose of benzodiazepine like alprazolam 0.25 mg up to 3 times a day. 05/16/2023: Patient is doing slightly better, still having slight shortness of breath on and off still on Solu-Medrol along with guaifenesin antibiotics and updraft treatment on the clock. Still seen pulmonary seems to be slightly bit better. Patient Become more confused and slightly more agitated at some point. Having to use short acting smaller dose of benzodiazepine to calm her down. Also marie vo has been doing limited PT and OT. Have social media assistant contacting family for potential need for any help or having to go for SNF. Apparently family had more help at home with home care and aide more often days. Try to advance medication slight bit and attempt to discharge patient home hopefully tomorrow if she is able to. REVIEW OF SYSTEMS: CONSTITUTIONAL: Well-developed elderly in mild respiratory distress. EYES: No icterus sclerae, no conjunctivitis. EARS, NOSE, MOUTH, THROAT, and FACE: No sore throat, lymphadenopathy, carotid bruits or deformity. RESPIRATORY: Positive shortness of breath cough and wheezes. CARDIOVASCULAR: Positive PND orthopnea palpitation. GASTROINTESTINAL: Abdominal discomfort with nausea no vomiting diarrhea constipation no GI bleed no distention or masses. GENITOURINARY: recurrent UTI with mild incontinence. INTEGUMENT/BREAST: Negative for any muscular injury with mild osteoarthritis.. HEMATOLOGIC/LYMPHATIC: Negative for bleed or purpura. MUSCULOSKELTAL: Generalized muscle and joint pain. NEURLOGICAL: No LOC, Sz or syncope, blurred vision dizziness or abnormality.. Slight memory loss. BEHAVIORAL/PSYCH: Negative. ENDOCRINE: Negative. PHYSICAL EXAMINATION: General Appearance: Alert, elderly looks in no distress. Neck HEENT: Supple, no lymphadenopathy, no thyroid enlargement, no carotid bruits. Slight congestion and swelling the back of her throat. Lungs: Clear to auscultation with crackles in the bases positive rhonchi and slight increased wheezes on the right side. Chest Wall: Decreased expansion with deep inspiration no tenderness and no deformity was found on exam, no costochondral pain or discomfort. Heart: Regular rate and rhythm, S1, S2 normal, no murmur, rub or gallop. Back: Symmetric, no curvature, ROM normal, no CVA tenderness. Abdomen: Soft, non-tender, bowel sounds active all four quadrants, no masses, no organomegaly. Extremities: Trace edema decreased pulse dorsalis pedis bilaterally with mild arthritis and slight discoloration from the knee down. Pulses: 2+ and symmetric. Skin: Skin color, texture, tugor normal, no rashes or lesions. Neurologic: Alert oriented with slight confusion cranial nerves II through XII intact, positive generalized weakness still have slight weakness on the left side compared to the right side. ASSESSMENT AND PLAN: _Severe dyspnea and shortness of breath with hypoxia most likely consistent with bilateral pneumonia. Along with COPD exacerbation continue antibiotic, steroid and continue updraft [id number]. _Bilateral pneumonia with worsening left side consistent with groundglass pictur e with mild fibrosis most likely from severe infection and scar tissue from recent inflammation. She was on doxycycline as an outpatient continue Rocephin at this point and probably keep the doxycycline management with doxycycline can be done as a longer term when she leaves the hospital. _COPD with mild worsening symptoms: Continue Solu-Medrol, continue guaifenesin Along with updraft treatment [id number] and steroid nebulizer. _Paroxysmal atrial fibrillation: Pulse rate is under control continue on Eliquis, patient become extremely and slow pulse rate with beta-noam has been off. _History of CVA: Still have slight residual with abnormal balance and gait and generalized weakness with mild memory loss. Her CVA and recurrent symptoms of encephalopathy has been causing quite a bit worsening memory loss. 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 _Hypertension: Blood pressure is well-controlled currently on amlodipine 10 mg a day, and continue isosorbide 30 mg a day still on diuretics. _History of seizure disorders: No active seizure activity at this point doing well stable has been off antiseizure. _Previous history of DVT: Still on anticoagulation with Eliquis. _Hyperlipidemia: Will continue atorvastatin 10 mg a day. Discussion and planning: Patient has been treated manage for her severe dyspnea and bilateral pneumonia along with COPD exacerbation also having to use smaller dose of benzodiazepine for mild agitation. Mobility still extremely limited patient's almost in bed to require 2 person delinquent tax collection assistant. Continue to involve PT and OT and contact family regard to see if needed any help to have patient go to short-term rehab and apparently is not the case when keep her at home with home health administrator and help. If patient is doing better by tomorrow there is a slight possibility might be able to discharge her home with a quick follow-up in the office within 3 days. Objective - Vital Signs Vital signs: Vital Signs Temp 98.3 F 05/16/23 02:00 Pulse 89 05/16/23 02:00 Resp 16 03/20/24 02:00 BP 122/63 05/16/23 02:00 Pulse Ox 92 L 05/16/23 02:00 FiO2 Intake & Output 05/15/23 05/15/23 05/16/23 06:59 18:59 06:59 Intake Total 118 Output Total 550 500 Balance -432 -500 Intake: Oral 118 Output: Urine 550 500 Other: Voiding Method Bedside Commode Bedside Commode Diaper # Voids 1 # Bowel Movements 1 - Labs CBC & Chem 7: 05/14/23 05:37 05/14/23 05:37 Labs: Microbiology - Last 24 Hours (Table) 05/13/23 15:14 Blood Culture - Preliminary Blood 05/13/23 15:14 Blood Culture - Preliminary Blood
--- NOTE | 2023-05-17 18:24 | P.PN ---
Subjective Progress Note Date: 05/17/23 This is an 88-year-old female patient with chronic advanced COPD with chronic h ypoxic respiratory failure maintained on O2 at 2 L/min nasal cannula. The patient came into the emergency department yesterday with increase in cough and congestion. Despite her age and advanced COPD, the patient has been living independently at home and her main caregiver has been her son has been very much involved in her care. No reported fever chills or night sweats. No pleurisy or hemoptysis. She is having generalized weakness. Her white cell count at the time of admission was 3.7 hemoglobin 12.6 and a platelet count of 580. BUN is at 12 with a creatinine of 0.8 and sodium levels at 143. The viral panel has been negative. CT of the chest was completed and showed emphysema with some few scattered groundglass opacity in left lung base. No other acute abnormalities have been noted. Chest x-ray at the time of admission showed limited bibasilar airspace disease. Based on that, the patient was hospitalized for [employer] exacerbation suspected pneumonia. She is currently on doxycycline. She is also on bronchodilators and steroids and the patient is currently on Solu-Medrol 60 m g every 6 hours. No altered mentation. No interval worsening in her oxygen requirements and the patient remains on O2 at 2 L with a pulse ox of 94%. No nausea. No vomiting. No emesis. No altered mentation. On a separate note, the patient has had previous history of CVA and she has limited mobility. She has hypertension hyperlipidemia and previous history of seizure disorder and DVT. She has been maintained on long-term anticoagulation and she is on Eliquis. She does have some residual left-sided weakness. She also has hypertension and hyperlipidemia and previous history of breast cancer. On today's evaluation of , the patient is being seen for a follow-up. Feeling better compared to yesterday. She is less short of breath is bronchospastic and wheezy compared to yesterday. White cell count from yesterday was at 3.7 with hemoglobin 4.6. Rest of the blood work was es sentially within normal limits. She remains on 2 L of oxygen by nasal cannula. The viral panel has been negative. Remains on Symbicort as maintenance, IV Solu-Medrol 60 mg every 6 hours and she is also on albuterol HFA 2 puffs 4 times a day. Blood cultures have been negative thus far. Awake alert and communicating. On today's evaluation of 05/16/2023, I am seeing the patient for a follow-up. Continues to have some congestion and cough and wheeze. No new complaints otherwise for now. No recent labs from today. Most recent labs are from 05/14/2023. The blood cultures have been negative. The patient is still on oxygen and she is maintained on 2 L with a pulse ox of 98%. She remains on Symbicort as maintenance and albuterol HFA and I am going to switch this patient to albuterol chest. She is on IV Rocephin. She remains on Solu-Medrol 60 mg every 6 hours. On today's evaluation of 05/17/2023, the patient is doing well with no specific complaints. Cough and congestion is improved. Remains on bronchodilators. Remains on steroids. Remains on IV Rocephin. The patient is still receiving IV Solu-Medrol 60 mg every 6 hours. No new labs are available from today. No other complaints otherwise. Objective - Vital Signs Vital signs: Vital Signs Temp 98.4 F 05/17/23 13:56 Pulse 85 05/17/23 13:56 Resp 18 05/17/23 13:56 BP 119/65 05/17/23 13:56 Pulse Ox 99 05/17/23 13:56 FiO2 Intake & Output 05/16/23 05/17/23 05/17/23 18:59 06:59 18:59 Intake Total 118 Output Total 1000 Balance -882 Intake: Oral 118 Output: Urine 1000 Other: Voiding Method Diaper Diaper Toilet Diaper # Voids 2 1 # Bowel Movements 1 - Exam GENERAL: The patient is alert and oriented x 3, not in any acute distress. Well developed, well nourished. The patient is currently on 2 L of oxygen by nasal cannula, no signs of any respiratory distress Head exam was generally normal. There was no scleral icterus or corneal arcus. Mucous membranes were moist. HEENT: Pupils are round and equally reacting to light. EOMI. CARDIOVASCULAR: S1 and S2 present. No murmurs, rubs, or gallops. PULMONARY: Chest is clear to auscultation, no wheezing or crackles. ABDOMEN: Soft, nontender, nondistended, normoactive bowel sounds. No palpable organomegaly. MUSCULOSKELETAL: No joint swelling or deformity. EXTREMITIES: No cyanosis, clubbing, or pedal edema. NEUROLOGICAL: motor weakness in the left, chronic. Obvious gait dysfunction. Generalized global weakness. - Labs CBC & Chem 7: 05/14/23 05:37 05/14/23 05:37 Labs: Microbiology - Last 24 Hours (Table) 05/13/23 15:14 Blood Culture - Preliminary Blood 05/13/23 15:14 Blood Culture - Preliminary Blood Assessment and Plan Plan: Acute exacerbation of COPD with questionable left basilar pneumonia, improving Acute on chronic shortness of breath without interval worsening oxygenation Chronic COPD and chronic hypoxic respiratory failure maintained on O2 at 2 L/min nasal cannula COPD with diffuse centrilobular emphysema. The patient also has scattered subpleural areas scarring, chronic. Previous history of CVA involving the right frontal and left cerebellar based on the CAT scan findings. Most recent MRI of the brain that was done on 08/21/2022 showed age-related atrophy and chronic small vessel ischemic changes. No enhancing lesions seen. Left-sided weakness, chronic History of breast cancer Hypertension Hyperlipidemia Previous history of DVT Plan Clinically improved and the patient can be potentially considered for discharge home either today or tomorrow Will continue same treatment hospice patient with DuoNeb jagrutirakarla 4 times a day [id number] and discontinue Ventolin HFA. Clinically essentially the same as yesterday Continue oxygen therapy and titrate oxygen flow to maintain saturation above 90%, oxygenation is stable Continue doxycycline Discontinued IV Solu-Medrol start the patient on prednisone burst taper l DuoNeb updrakarla Sputum Gram stain and culture is still pending. Meanwhile the blood cultures are negative. Continue anticoagulation with Eliquis Continue Lasix Resume home medications Will follow, possible discharge
--- NOTE | 2023-05-17 22:17 | P.PN ---
Subjective Progress Note Date: 05/17/23 HISTORY OF PRESENT ILLNESS: 88-year-old with multimedical problems known to have history of COPD, A-fib, memory loss, recurrent UTI, Who apparently has been having severe signs and symptoms of URI with cough productive of dark phlegm along with worsening shortness of breath and dyspnea with mild hypoxia apparently the son who called his mom and found her to be in extreme out of breath, he called 911 EMS ended up bringing the patient to the emergency department for evaluation, she was seen and evaluated for altered mental status along with confusion and dyspnea with shortness of breath. Chest x-ray showed bibasilar infiltrate and infection, CAT scan of the chest shows emphysematous change with scattered peripheral groundglass glass opacification of the left base most likely represent infection or infectious process or scar tissue from recent or previous infection. With her current symptom white blood cell was 5600 with no left shift, COVID-19 and influenza and RSV are all negative, chemistry did not show any major abnormality or change. She was started on Rocephin and azithromycin along with steroid she was on home doxycycline will continue updraft treatment [id number] patient to be seen pulmonary. 05/15/2023: Patient seen pulmonary agree with the current management patient was originally on doxycycline orally for UTI was started in the hospital on azithromycin and Rocephin for pneumonitis which we will continue Rocephin for now and maybe we can help doxycycline till discharge. Meanwhile he still mildly hypoxic requiring O2 between 2 and 3 L still have diffuse emphysema with COPD but should continue to get more aggressive management. Patient has significant memory loss with MRI of the brain with the last 6 months showed chronic small vessel disease and significant atrophy may be adding little bit more aggressive management for dementia can be more helpful. Will continue antibiotics along with oxygen updraft treatment and steroid might be helpful again for the next day or 2 before switching patient back to oral meds. Patient is getting more confused with slight combative behavior still manageable on very small dose of benzodiazepine like alprazolam 0.25 mg up to 3 times a day. 05/16/2023: Patient is doing slightly better, still having slight shortness of breath on and off still on Solu-Medrol along with guaifenesin antibiotics and updraft treatment on the clock. Still seen pulmonary seems to be slightly bit better. Patient Become more confused and slightly more agitated at some point. Having to use short acting smaller dose of benzodiazepine to calm her down. Also marie vo has been doing limited PT and OT. Have child welfare social worker contacting family for potential need for any help or having to go for SNF. Apparently family had more help at home with home care and aide more often days. Try to advance medication slight bit and attempt to discharge patient home hopefully tomorrow if she is able to. 05/17/2023: She has been feeling well continue to have slight cough and congestion doing very well on bronchodilator, will switch her Solu-Medrol to prednisone taper starting at 40 mg down to 10 mg 3 days apart, also patient is back on oral doxycycline at this point. Shortness of breath and hypoxia is much better. Left a note for the family will need any extra help and apparently they have 24 hours assisted living home do not feel the need to send patient to SNF despite the need for more than 1 person instruction assistant principal at time. Patient is in the process to be discharged either later today or tomorrow morning. REVIEW OF SYSTEMS: CONSTITUTIONAL: Well-developed elderly in mild respiratory distress. EYES: No icterus sclerae, no conjunctivitis. EARS, NOSE, MOUTH, THROAT, and FACE: No sore throat, lymphadenopathy, carotid bruits or deformity. RESPIRATORY: Positive shortness of breath cough and wheezes. CARDIOVASCULAR: Positive PND orthopnea palpitation. GASTROINTESTINAL: Abdominal discomfort with nausea no vomiting diarrhea cons tipation no GI bleed no distention or masses. GENITOURINARY: recurrent UTI with mild incontinence. INTEGUMENT/BREAST: Negative for any muscular injury with mild osteoarthritis.. HEMATOLOGIC/LYMPHATIC: Negative for bleed or purpura. MUSCULOSKELTAL: Generalized muscle and joint pain. NEURLOGICAL: No LOC, Sz or syncope, blurred vision dizziness or abnormality.. Slight memory loss. BEHAVIORAL/PSYCH: Negative. ENDOCRINE: Negative. PHYSICAL EXAMINATION: General Appearance: Alert, elderly looks in no distress. Neck HEENT: Supple, no lymphadenopathy, no thyroid enlargement, no carotid bruits. Slight congestion and swelling the back of her throat. Lungs: Clear to auscultation with crackles in the bases positive rhonchi and slight increased wheezes on the right side. Chest Wall: Decreased expansion with deep inspiration no tenderness and no deformity was found on exam, no costochondral pain or discomfort. Heart: Regular rate and rhythm, S1, S2 normal, no murmur, rub or gallop. Back: Symmetric, no curvature, ROM normal, no CVA tenderness. Abdomen: Soft, non-tender, bowel sounds active all four quadrants, no masses, no organomegaly. Extremities: Trace edema decreased pulse dorsalis pedis bilaterally with mild arthritis and slight discoloration from the knee down. Pulses: 2+ and symmetric. Skin: Skin color, texture, tugor normal, no rashes or lesions. Neurologic: Alert oriented with slight confusion cranial nerves II through XII intact, positive generalized weakness still have slight weakness on the left side compared to the right side. ASSESSMENT AND PLAN: _Severe dyspnea and shortness of breath with hypoxia most likely consistent with bilateral pneumonia. Along with COPD exacerbation continue antibiotic, steroid and continue updraft [id number]. Will switch steroid to oral. _Bilateral pneumonia with worsening left side consistent with groundglass picture with mild fibrosis most likely from severe infection and scar tissue from recent inflammation. Will continue on doxycycline orally for total of 10 days. _COPD with mild worsening symptoms: Continue Solu-Medrol and switch to oral steroid as the left her discharge date., continue guaifenesin Along with updraft treatment [id number] and steroid nebulizer. _Paroxysmal atrial fibrillation: Pulse rate is under control continue on Eliquis, patient become extremely and slow pulse rate with beta-noam has been off. _History of CVA: Still have slight residual with abnormal balance and gait and generalized weakness with mild memory loss. Her CVA and recurrent symptoms of encephalopathy has been causing quite a bit worsening memory loss. 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 _Hypertension: Blood pressure is well-controlled currently on amlodipine 10 mg a day, and continue isosorbide 30 mg a day still on diuretics. _History of seizure disorders: No active seizure activity at this point doing well stable has been off antiseizure. _Previous history of DVT: Still on anticoagulation with Eliquis. _Hyperlipidemia: Will continue atorvastatin 10 mg a day. Discussion and planning: Doing well still require little bit more help and instruction assistant principal with more than 1 person instruction assistant principal, still doing PT and OT that is limited to some degree. Left and out for the family without the need any help and if they preferred to have patient going to SNF for a week or so and as I was not to have enough help at home. With patient being stable hopefully will process her discharge to be done either late today or tomorrow morning. Objective - Vital Signs Vital signs: Vital Signs Temp 97.8 F 05/17/23 19:06 Pulse 76 05/17/23 21:33 Resp 15 05/17/23 19:06 BP 125/56 05/17/23 19:06 Pulse Ox 99 05/17/23 19:06 FiO2 Intake & Output 05/17/23 05/17/23 05/18/23 06:59 18:59 06:59 Other: Voiding Method Diaper Toilet Diaper # Voids 2 1 # Bowel Movements 1 - Labs CBC & Chem 7: 05/14/23 05:37 05/14/23 05:37 Labs: Microbiology - Last 24 Hours (Table) 05/13/23 15:14 Blood Culture - Preliminary Blood 05/13/23 15:14 Blood Culture - Preliminary Blood
[2023-05-18 12:32] VITALS: RESP 16
[2023-05-18 14:19] VITALS: BP 116/74; PULSE 91; TEMP 97.5
--- NOTE | 2023-05-18 16:45 | P.PN ---
Subjective Progress Note Date: 05/18/23 This is an 88-year-old female patient with chronic advanced COPD with chronic h ypoxic respiratory failure maintained on O2 at 2 L/min nasal cannula. The patient came into the emergency department yesterday with increase in cough and congestion. Despite her age and advanced COPD, the patient has been living independently at home and her main caregiver has been her son has been very much involved in her care. No reported fever chills or night sweats. No pleurisy or hemoptysis. She is having generalized weakness. Her white cell count at the time of admission was 3.7 hemoglobin 12.6 and a platelet count of 580. BUN is at 12 with a creatinine of 0.8 and sodium levels at 143. The viral panel has been negative. CT of the chest was completed and showed emphysema with some few scattered groundglass opacity in left lung base. No other acute abnormalities have been noted. Chest x-ray at the time of admission showed limited bibasilar airspace disease. 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 She is currently on doxycycline. She is also on bronchodilators and steroids and the patient is currently on Solu-Medrol 60 m g every 6 hours. No altered mentation. No interval worsening in her oxygen requirements and the patient remains on O2 at 2 L with a pulse ox of 94%. No nausea. No vomiting. No emesis. No altered mentation. On a separate note, the patient has had previous history of CVA and she has limited mobility. She has hypertension hyperlipidemia and previous history of seizure disorder and DVT. She has been maintained on long-term anticoagulation and she is on Eliquis. She does have some residual left-sided weakness. She also has hypertension and hyperlipidemia and previous history of breast cancer. On today's evaluation of , the patient is being seen for a follow-up. Feeling better compared to yesterday. She is less short of breath is bronchospastic and wheezy compared to yesterday. White cell count from yesterday was at 3.7 with hemoglobin 4.6. Rest of the blood work was es sentially within normal limits. She remains on 2 L of oxygen by nasal cannula. The viral panel has been negative. Remains on Symbicort as maintenance, IV Solu-Medrol 60 mg every 6 hours and she is also on albuterol HFA 2 puffs 4 times a day. Blood cultures have been negative thus far. Awake alert and communicating. On today's evaluation of 05/16/2023, I am seeing the patient for a follow-up. Continues to have some congestion and cough and wheeze. No new complaints otherwise for now. No recent labs from today. Most recent labs are from 05/14/2023. The blood cultures have been negative. The patient is still on oxygen and she is maintained on 2 L with a pulse ox of 98%. She remains on Symbicort as maintenance and albuterol HFA and I am going to switch this patient to albuterol chest. She is on IV Rocephin. She remains on Solu-Medrol 60 mg every 6 hours. On today's evaluation of 05/17/2023, the patient is doing well with no specific complaints. Cough and congestion is improved. Remains on bronchodilators. Remains on steroids. Remains on IV Rocephin. The patient is still receiving IV Solu-Medrol 60 mg every 6 hours. No new labs are available from today. No other complaints otherwise. On today's evaluation of 05/18/2023, the patient expressed that he is back to his baseline. No specific complaints. Doing well. No nausea or vomiting. No chest pain. No altered mentation. The patient remains on 2 L of oxygen by nasal cannula. Pulse ox is 96% and the white cell count is at 3.7 with hemoglobin 12.6. Normal electrolytes. Normal renal function. No altered m entation. No other complaints otherwise. Objective - Vital Signs Vital signs: Vital Signs Temp 98.2 F 05/18/23 08:00 Pulse 90 05/18/23 08:00 Resp 18 05/18/23 08:00 BP 130/74 05/18/23 08:00 Pulse Ox 95 05/18/23 08:00 FiO2 Intake & Output 05/17/23 05/18/23 05/18/23 18:59 06:59 18:59 Intake Total 120 Balance 120 Intake: Oral 120 Other: Voiding Method Toilet Bedpan Bedpan Diaper Diaper Diaper # Voids 1 1 # Bowel Movements 1 - Exam GENERAL: The patient is alert and oriented x 3, not in any acute distress. Well developed, well nourished. The patient is currently on 2 L of oxygen by nasal cannula, no signs of any respiratory distress Head exam was generally normal. There was no scleral icterus or corneal arcus. Mucous membranes were moist. HEENT: Pupils are round and equally reacting to light. EOMI. CARDIOVASCULAR: S1 and S2 present. No murmurs, rubs, or gallops. PULMONARY: Chest is clear to auscultation, no wheezing or crackles. ABDOMEN: Soft, nontender, nondistended, normoactive bowel sounds. No palpable organomegaly. MUSCULOSKELETAL: No joint swelling or deformity. EXTREMITIES: No cyanosis, clubbing, or pedal edema. NEUROLOGICAL: motor weakness in the left, chronic. Obvious gait dysfunction. Generalized global weakness. - Labs CBC & Chem 7: 05/14/23 05:37 05/14/23 05:37 Assessment and Plan Plan: Acute exacerbation of COPD with questionable left basilar pneumonia, improving Acute on chronic shortness of breath without interval worsening oxygenation Chronic COPD and chronic hypoxic respiratory failure maintained on O2 at 2 L/min nasal cannula COPD with diffuse centrilobular emphysema. The patient also has scattered subpleural areas scarring, chronic. Previous history of CVA involving the right frontal and left cerebellar based on the CAT scan findings. Most recent MRI of the brain that was done on 08/21/2022 showed age-related atrophy and chronic small vessel ischemic changes. No enhancing lesions seen. Left-sided weakness, chronic History of breast cancer Hypertension Hyperlipidemia Previous history of DVT Plan Clinically improved and the patient can be potentially considered for discharge home prednisone burst taper at time of discharge in addition to routine respiratory medications.
== END 2023-05-18 13:55 | disposition home or self-care (01) | DRG 190 ==
LOC: EC 12:26 → 6NMEDSUR 15:47 → OBSVTOIN 05-15 09:00
PROVIDERS: ADMIT Internal Medicine Geriatric Medicine; ATTEND Internal Medicine Geriatric Medicine
DX: J44.1 Chronic obstructive pulmonary disease with (acute) exacerbation (principal); J18.9 Pneumonia, unspecified organism; J96.11 Chronic respiratory failure with hypoxia; N39.0 Urinary tract infection, site not specified; F02.84 Dementia in other diseases classified elsewhere, unspecified severity, with anxiety; I69.354 Hemiplegia and hemiparesis following cerebral infarction affecting left non-dominant side; J44.0 Chronic obstructive pulmonary disease with (acute) lower respiratory infection; J84.10 Pulmonary fibrosis, unspecified; J43.9 Emphysema, unspecified; Z79.01 Long term (current) use of anticoagulants; I48.0 Paroxysmal atrial fibrillation; I25.10 Atherosclerotic heart disease of native coronary artery without angina pectoris; Z86.718 Personal history of other venous thrombosis and embolism; E78.5 Hyperlipidemia, unspecified; G30.9 Alzheimer's disease, unspecified; F91.8 Other conduct disorders; D64.9 Anemia, unspecified; I11.0 Hypertensive heart disease with heart failure; I50.9 Heart failure, unspecified; G40.909 Epilepsy, unspecified, not intractable, without status epilepticus; Z79.02 Long term (current) use of antithrombotics/antiplatelets; Z79.899 Other long term (current) drug therapy; Z82.49 Family history of ischemic heart disease and other diseases of the circulatory system; Z85.3 Personal history of malignant neoplasm of breast; Z87.440 Personal history of urinary (tract) infections; Z87.891 Personal history of nicotine dependence; Z90.49 Acquired absence of other specified parts of digestive tract
CPT/HCPCS: 36415; 71046; 71260; 80048; 83880; 85025; 87040; 87636; 93005; 94640; 94760; 96361; 96365; 96366; 96375; 99285

== ENCOUNTER 2023-07-01 01:08 | Emergency (ER) | payer MEDICARE, BC ==
--- NOTE | 2023-07-01 01:29 | ED ---
Fall HPI - General Chief Complaint: Fall Stated Complaint: Fall Time Seen by Provider: 07/01/23 01:16 Source: patient Mode of arrival: EMS - History of Present Illness Initial Comments: This patient is an 88-year-old woman who arrives to evaluation after ground- level fall. The patient states that she had tripped over her walker and fallen. She struck her right hip. The patient then had to have EMS bring her in because she was not able to get up. Patient denies weakness or numbness of the leg. She does not have any other injuries or pain. She denies headache, neck pain, chest, back or abdomen pain. MD Complaint: fall -: minutes(s) Fall From: standing When Fall Occurred: just prior to arrival Place Fall Occurred: home Loss of Consciousness: none Prolonged Down Time?: no Symptoms Prior to Fall: none Location: back Severity: moderate Context: tripped/slipped - Related Data Home Medications Medication Instructions Recorded Confirmed Pantoprazole [Protonix] 40 mg PO DAILY 04/11/18 05/13/23 Albuterol Inhaler [Ventolin Hfa 2 puff INHALATION RT-Q6H PRN 04/29/22 05/13/23 Inhaler] Apixaban [Eliquis] 2.5 mg PO BID 04/29/22 05/13/23 DULoxetine HCL [Cymbalta] 30 mg PO DAILY 04/29/22 05/13/23 Denosumab [Prolia] 60 mg SQ Q180D 04/29/22 05/13/23 Furosemide [Lasix] 20 mg PO DAILY 04/29/22 05/13/23 Isosorbide Mononitrate ER [Imdur] 30 mg PO DAILY 04/29/22 05/13/23 Melatonin 5 mg PO HS 04/29/22 05/13/23 Cholecalciferol [Vitamin D3 (25 25 mcg PO DAILY 09/30/22 05/13/23 Mcg = 1000 Iu)] Ascorbic Acid [Vitamin C] 500 mg PO DAILY 10/27/22 05/13/23 Apple Cider Vinegar Chew 1 tab PO DAILY 03/04/23 05/13/23 Atorvastatin [Lipitor] 10 mg PO HS 03/04/23 05/13/23 Ferrous Sulfate [Iron (65 MG 325 mg PO DAILY 01/07/24 03/17/24 Elemental)] Previous Rx's Medication Instructions Recorded Acetaminophen-Codeine 300-30mg 1 tab PO BID PRN #4 tab 12/28/22 [Tylenol w/codeine #3] Clopidogrel [Plavix] 75 mg PO DAILY 30 Days #30 tab 12/28/22 amLODIPine [Norvasc] 10 mg PO DAILY #30 tab 03/08/23 Lidocaine 5% Patch [Lidoderm 5% 1 patch TOPICAL DAILY PRN 14 Days 03/15/23 Patch] #14 patch ALPRAZolam [Xanax] 0.25 mg PO TID PRN #60 tab 05/17/23 Budesonide-Formot 160-4.5 Mcg 2 puff INHALATION RT-BID #1 each 05/17/23 [Symbicort 160-4.5 Mcg Inhaler] Doxycycline [Vibramycin] 100 mg PO BID #30 cap 05/17/23 Ipratropium-Albuterol Nebulize 3 ml INHALATION RT-QID #120 each 05/17/23 [Duoneb 0.5 mg-3 mg/3 ml Soln] guaiFENesin-Coden 100-10MG/5ML 10 ml PO Q6H PRN #250 ml 05/17/23 [Robitussin AC] predniSONE 10 mg PO DIRECTED #30 tab 05/17/23 Allergies Allergy/AdvReac Type Severity Reaction Status Date / Time No Known Allergies Allergy Verified 07/01/23 01:12 Review of Systems ROS Statement: Those systems with pertinent positive or pertinent negative responses have been documented in the HPI. ROS Other: All systems not noted in ROS Statement are negative. Constitutional: Denies: fever, weakness Eyes: Denies: vision change Respiratory: Denies: cough, dyspnea Cardiovascular: Denies: chest pain, syncope Gastrointestinal: Denies: abdominal pain, vomiting Musculoskeletal: Reports: as per HPI, arthralgia. Denies: back pain Skin: Denies: lesions Neurological: Denies: headache, weakness 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,, emphysema; hypoglycemia, hx breast cancer, History of Any Multi-Drug Resistant Organisms: None Reported Past Surgical History: Back Surgery, Breast Surgery, Cholecystectomy, Heart Catheterization Additional Past Surgical History / Comment(s): L SUBCLAVIAN ARTERY BYPASS, Rt CAROTID ENDARTECTOMY, rt breast lumpectomy Past Anesthesia/Blood Transfusion Reactions: No Reported Reaction Additional Past Anesthesia/Blood Transfusion Reaction / Comment(s): . Past Psychological History: Anxiety Smoking Status: Former smoker Past Alcohol Use History: None Reported Past Drug Use History: None Reported - Past Family History Brother(s) Family Medical History: Cancer Sister(s) Family Medical History: Cancer Mother Family Medical History: Coronary Artery Disease (CAD) Additional Family Medical History / Comment(s): enlarged heart Father Family Medical History: Coronary Artery Disease (CAD), CVA/TIA General Exam Limitations: no limitations General appearance: alert, in no apparent distress Head exam: Present: atraumatic, normocephalic Eye exam: Present: normal appearance. Absent: scleral icterus, conjunctival injection Neck exam: Present: normal inspection Respiratory exam: Present: normal lung sounds bilaterally. Absent: respiratory distress, wheezes, rales, rhonchi, stridor, chest wall tenderness, accessory muscle use Cardiovascular Exam: Present: regular rate, normal rhythm, normal heart sounds. Absent: systolic murmur, diastolic murmur, rubs, gallop GI/Abdominal exam: Present: soft. Absent: distended, tenderness, guarding, rebound, rigid, mass Extremities exam: Present: normal inspection, normal capillary refill. Absent: pedal edema Back exam: Present: normal inspection. Absent: vertebral tenderness Neurological exam: Present: alert. Absent: motor sensory deficit Skin exam: Present: warm, dry, intact, normal color. Absent: rash Course Vital Signs 07/01/23 07/01/23 01:09 03:00 Temperature 97.9 F Pulse Rate 57 L 81 Respiratory 18 18 Rate Blood Pressure 126/70 135/62 O2 Sat by Pulse 96 98 Oximetry Medical Decision Making - Medical Decision Making The patient had x-ray of the hip and pelvis which I interpreted as negative for acute bony injury. Was pt. sent in by a medical professional or institution (, PA, LANDSCAPING SUPERVISOR, urgent care, hospital, or group home...) When possible be specific @ -[No] Did you speak to anyone other than the patient for history (EMS, parent, family, police, friend...)? What history was obtained from this source @ -[No] Did you review nursing and triage notes (agree or disagree)? Why? @ -[I reviewed and agree with nursing and triage notes] Were old charts reviewed (outside hosp., previous admission, EMS record, old EKG, old radiological studies, urgent care reports/EKG's, group home records)? Report findings @ -[No old charts were reviewed] Differential Diagnosis (chest pain, altered mental status, abdominal pain women, abdominal pain men, vaginal bleeding, weakness, fever, dyspnea, syncope, headache, dizziness, GI bleed, back pain, seizure, CVA, palpatations, mental health, musculoskeletal)? @ -[Differential Musculoskeletal Muscular strain, contusion, ligament sprain, fracture, arthritis, septic arthritis, bursitis, cellulitis, muscle spasm, nerve compression, DVT, arterial occlusion, herpes zoster, electrolyte abnormality, tumor.... This is not meant to be in all inclusive list EKG interpreted by me (3pts min.). @ -[As above] X-rays interpreted by me (1pt min.). @ -[I interpreted as above CT interpreted by me (1pt min.). @ -[None done] U/S interpreted by me (1pt. min.). @ -[None done] What testing was considered but not performed or refused? (CT, X-rays, U/S, labs)? Why? @ -[None] What meds were considered but not given or refused? Why? @ -[None] Did you discuss the management of the patient with other professionals (professionals i.e. , PA, LANDSCAPING SUPERVISOR, lab, RT, psych nurse, sexual assault social worker, operations director, teacher, marketing and communications officer, telehealth case manager)? Give summary @ -[No] Was smoking cessation discussed for >3mins.? @ -[No] Was critical care preformed (if so, how long)? @ -[No] Were there social determinants of health that impacted care today? How? (Homelessness, low income, unemployed, alcoholism, drug addiction, transportation, low edu. Level, literacy, decrease access to med. care, intermediate, rehab)? @ -[No] Was there de-escalation of care discussed even if they declined (Discuss DNR or withdrawal of care, Hospice)? DNR status @ -[No] What co-morbidities impacted this encounter? (DM, HTN, Smoking, COPD, CAD, Cancer, CVA, ARF, Chemo, Hep., AIDS, mental health diagnosis, sleep apnea, morbid obesity)? @ -[None] Was patient admitted / discharged? Hospital course, mention meds given and route, prescriptions, significant lab abnormalities, going to OR and other pertinent info. @ -[Patient is an 88-year-old woman here to have evaluation after she had fallen. She did have significant tenderness on the exam and not wanting to bear weight initially. She had x-ray that was negative for fracture/dislocation. Following this the patient feeling better was able to bear weight and stable for discharge. Undiagnosed new problem with uncertain prognosis? @ -[No] Drug Therapy requiring intensive monitoring for toxicity (Heparin, Nitro, Insulin, Cardizem)? @ -[No] Were any procedures done? @ -[No] Diagnosis/symptom? @ -[Acute fall with hip injury Acute, or Chronic, or Acute on Chronic? @ -[Acute Uncomplicated (without systemic symptoms) or Complicated (systemic symptoms)? @ -[Uncomplicated Side effects of treatment? @ -[No] Exacerbation, Progression, or Severe Exacerbation? @ -[No] Poses a threat to life or bodily function? How? (Chest pain, [place], [place], pneumonia, PE, COPD, DKA, ARF, appy, cholecystitis, CVA, Diverticulitis, Homicidal, Suicidal, threat to staff... and all critical care pts) @ -[No] Disposition Clinical Impression: Fall with injury Disposition: HOME SELF-CARE Condition: Good Instructions (If sedation given, give patient instructions): Fall Prevention (ED), Hip Pain (ED) Is patient prescribed a controlled substance at d/c from ED?: No Referrals: Tacos Saha MD [Primary Care Provider] - 1-2 days
[2023-07-01 01:58] VITALS: RESP 18; TEMP 97.9
--- NOTE | 2023-07-01 03:10 | XR ---
EXAM: XR Right Hip With Pelvis When Performed, 2 or 3 Views CLINICAL HISTORY: fall injury TECHNIQUE: Two or three views of the right hip with pelvis when performed. COMPARISON: 12/11/2019 FINDINGS: Bones/joints: No acute fracture. No dislocation. Mild right hip medial joint space narrowing. Degenerative changes lower lumbar spine with unchanged fusion hardware. Soft tissues: Vascular calcifications. Unremarkable bowel gas pattern.. IMPRESSION: No acute post-traumatic abnormality.
[2023-07-01 04:11] VITALS: BP 135/62; PULSE 81
== END 2023-07-01 04:26 | disposition home or self-care (01) ==
LOC: EC 01:08
DX: S79.911A Unspecified injury of right hip, initial encounter (principal); Z87.891 Personal history of nicotine dependence; W01.0XXA Fall on same level from slipping, tripping and stumbling without subsequent striking against object, initial encounter
CPT/HCPCS: 73502; 99284

== ENCOUNTER 2023-07-23 11:32 | Emergency (ER) | payer MEDICARE, BC ==
--- NOTE | 2023-07-23 12:29 | ED ---
General Adult HPI - General Chief complaint: Recheck/Abnormal Lab/Rx Stated complaint: Insomnia Time Seen by Provider: 07/23/23 11:39 Source: patient, EMS, RN notes reviewed, old records reviewed Mode of arrival: EMS Limitations: no limitations - History of Present Illness Initial comments: 88-year-old female presenting for evaluation of insomnia, difficulty sleeping over the past several days. Patient was recently switched from melatonin to Seroquel. She does have history of dementia and history is obtained somewhat from the patient but also from family members. She had a fall yesterday without reported injury. No head or neck trauma. Patient has had no fever. No vomiting. No chest pain. No pain complaints at the time my evaluation. - Related Data Home Medications Medication Instructions Recorded Confirmed Pantoprazole [Protonix] 40 mg PO DAILY 04/11/18 05/13/23 Albuterol Inhaler [Ventolin Hfa 2 puff INHALATION RT-Q6H PRN 04/29/22 05/13/23 Inhaler] Apixaban [Eliquis] 2.5 mg PO BID 04/29/22 05/13/23 DULoxetine HCL [Cymbalta] 30 mg PO DAILY 04/29/22 05/13/23 Denosumab [Prolia] 60 mg SQ Q180D 04/29/22 05/13/23 Furosemide [Lasix] 20 mg PO DAILY 04/29/22 05/13/23 Isosorbide Mononitrate ER [Imdur] 30 mg PO DAILY 04/29/22 05/13/23 Melatonin 5 mg PO HS 04/29/22 05/13/23 Cholecalciferol [Vitamin D3 (25 25 mcg PO DAILY 09/30/22 05/13/23 Mcg = 1000 Iu)] Ascorbic Acid [Vitamin C] 500 mg PO DAILY 10/27/22 05/13/23 Apple Cider Vinegar Chew 1 tab PO DAILY 03/04/23 05/13/23 Atorvastatin [Lipitor] 10 mg PO HS 03/04/23 05/13/23 Ferrous Sulfate [Iron (65 MG 325 mg PO DAILY 03/04/23 05/13/23 Elemental)] Previous Rx's Medication Instructions Recorded Acetaminophen-Codeine 300-30mg 1 tab PO BID PRN #4 tab 12/28/22 [Tylenol w/codeine #3] Clopidogrel [Plavix] 75 mg PO DAILY 30 Days #30 tab 12/28/22 amLODIPine [Norvasc] 10 mg PO DAILY #30 tab 03/08/23 Lidocaine 5% Patch [Lidoderm 5% 1 patch TOPICAL DAILY PRN 14 Days 03/15/23 Patch] #14 patch ALPRAZolam [Xanax] 0.25 mg PO TID PRN #60 tab 05/17/23 Budesonide-Formot 160-4.5 Mcg 2 puff INHALATION RT-BID #1 each 05/17/23 [Symbicort 160-4.5 Mcg Inhaler] Doxycycline [Vibramycin] 100 mg PO BID #30 cap 05/17/23 Ipratropium-Albuterol Nebulize 3 ml INHALATION RT-QID #120 each 05/17/23 [Duoneb 0.5 mg-3 mg/3 ml Soln] guaiFENesin-Coden 100-10MG/5ML 10 ml PO Q6H PRN #250 ml 05/17/23 [Robitussin AC] predniSONE 10 mg PO DIRECTED #30 tab 05/17/23 Allergies Allergy/AdvReac Type Severity Reaction Status Date / Time No Known Allergies Allergy Verified 07/23/23 11:45 Review of Systems ROS Statement: Those systems with pertinent positive or pertinent negative responses have been documented in the HPI. ROS Other: All systems not noted in ROS Statement are negative. 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 Past Psychological History: Anxiety Smoking Status: Former smoker Past Alcohol Use History: None Reported Past Drug Use History: None Reported - Past Family History Brother(s) Family Medical History: Cancer Sister(s) Family Medical History: Cancer Mother Family Medical History: Coronary Artery Disease (CAD) Additional Family Medical History / Comment(s): enlarged heart Father Family Medical History: Coronary Artery Disease (CAD), CVA/TIA General Exam Limitations: no limitations General appearance: alert, in no apparent distress Head exam: Present: atraumatic, normocephalic Eye exam: Present: normal appearance, PERRL Respiratory exam: Present: decreased breath sounds. Absent: respiratory distress, wheezes Cardiovascular Exam: Present: regular rate, normal rhythm GI/Abdominal exam: Present: soft. Absent: distended, tenderness Extremities exam: Present: normal inspection, normal capillary refill Neurological exam: Present: alert, CN II-XII intact, motor sensory deficit. Absent: oriented X3 Psychiatric exam: Present: normal affect, normal mood Skin exam: Present: warm, dry, intact. Absent: cyanosis, diaphoretic Course Vital Signs 07/23/23 07/23/23 11:37 15:01 Temperature 98.4 F Pulse Rate 81 75 Respiratory 18 18 Rate Blood Pressure 133/69 155/73 O2 Sat by Pulse 95 100 Oximetry Medical Decision Making - Medical Decision Making Was pt. sent in by a medical professional or institution (, PA, LICENSED MENTAL HEALTH COUNSELOR, urgent care, hospital, or long term...) When possible be specific @ -No Did you speak to anyone other than the patient for history (EMS, parent, family, police, friend...)? What history was obtained from this source @ -No Did you review nursing and triage notes (agree or disagree)? Why? @ -I reviewed and agree with nursing and triage notes Were old charts reviewed (outside hosp., previous admission, EMS record, old EKG, old radiological studies, urgent care reports/EKG's, long term records)? Report findings @ -No old charts were reviewed Differential Diagnosis fall, weakness, UTI, insomnia. EKG interpreted by me (3pts min.). @ -As above X-rays interpreted by me (1pt min.). @ -None done CT interpreted by me (1pt min.). @ -None done U/S interpreted by me (1pt. min.). @ -None done What testing was considered but not performed or refused? (CT, X-rays, U/S, labs)? Why? @ -None What meds were considered but not given or refused? Why? @ -None Did you discuss the management of the patient with other professionals (ofe beyer i.e. , PA, LICENSED MENTAL HEALTH COUNSELOR, lab, RT, psych nurse, social welfare administrator, clinical account liaison, teacher, court registry officer, manager case)? Give summary @ -No Was smoking cessation discussed for >3mins.? @ -No Was critical care preformed (if so, how long)? @ -No Were there social determinants of health that impacted care today? How? (Homelessness, low income, unemployed, alcoholism, drug addiction, transportation, low edu. Level, literacy, decrease access to med. care, fdc, rehab)? @ -No Was there de-escalation of care discussed even if they declined (Discuss DNR or withdrawal of care, Hospice)? DNR status @ -No What co-morbidities impacted this encounter? (DM, HTN, Smoking, COPD, CAD, Cancer, CVA, ARF, Chemo, Hep., AIDS, mental health diagnosis, sleep apnea, morbid obesity)? @ -Dementia Was patient admitted / discharged? Hospital course, mention meds given and route, prescriptions, significant lab abnormalities, going to OR and other pertinent info. @ -88-year-old female with dementia presenting with chief complaint of insomnia. There was a complaint of weakness and minor fall which occurred yesterday. Traumatic workup including chest x-ray, pelvis x-ray and lumbar spine is negative. Her laboratory testing is unremarkable. Urinalysis negative for infection. I do feel this patient is stable for discharge at this time. She can resume her melatonin. Undiagnosed new problem with uncertain prognosis? @ -No Drug Therapy requiring intensive monitoring for toxicity (Heparin, Nitro, Insulin, Cardizem)? @ -No Were any procedures done? @ -No Diagnosis/symptom? @Insomnia, fall Acute, or Chronic, or Acute on Chronic? @ -Acute Uncomplicated (without systemic symptoms) or Complicated (systemic symptoms)? @ -Default Side effects of treatment? @ -No Exacerbation, Progression, or Severe Exacerbation? @ -No Poses a threat to life or bodily function? How? (Chest pain, USA, VT, pneumonia, PE, COPD, DKA, ARF, appy, cholecystitis, CVA, Diverticulitis, Homicidal, Suicidal, threat to staff... and all critical care pts) @ -[Low risk at this time - Lab Data Result diagrams: 07/23/23 12:38 07/23/23 14:13 Lab Results 07/23/23 07/23/23 07/23/23 Range/Units 12:38 14:13 15:01 WBC 7.1 (3.8-10.6) k/uL RBC 4.04 (3.80-5.40) m/uL Hgb 11.1 L (11.4-16.0) gm/dL Hct 36.7 (34.0-46.0) % MCV 90.9 (80.0-100.0) fL MCH 27.5 (25.0-35.0) pg MCHC 30.3 L (31.0-37.0) g/dL RDW 17.9 H (11.5-15.5) % Plt Count 311 (150-450) k/uL MPV 6.8 Neutrophils % 71 % Lymphocytes % 17 % Monocytes % 7 % Eosinophils % 2 % Basophils % 1 % Neutrophils # 5.0 (1.3-7.7) k/uL Lymphocytes # 1.2 (1.0-4.8) k/uL Monocytes # 0.5 (0-1.0) k/uL Eosinophils # 0.1 (0-0.7) k/uL Basophils # 0.1 (0-0.2) k/uL Hypochromasia Moderate Anisocytosis Slight Sodium 140 (137-145) mmol/L Potassium 4.2 (3.5-5.1) mmol/L Chloride 106 (98-107) mmol/L Carbon Dioxide 30 (22-30) mmol/L Anion Gap 4 mmol/L BUN 16 (7-17) mg/dL Creatinine 0.75 (0.52-1.04) mg/dL Est GFR (CKD-EPI)AfAm 82 (>60 ml/min/1.73 sqM) Est GFR (CKD-EPI)NonAf 72 (>60 ml/min/1.73 sqM) Glucose 95 (74-99) mg/dL Calcium 9.5 (8.4-10.2) mg/dL Total Bilirubin 0.7 (0.2-1.3) mg/dL AST 33 (14-36) U/L ALT 11 (4-34) U/L Alkaline Phosphatase 60 (38-126) U/L Total Protein 6.1 L (6.3-8.2) g/dL Albumin 3.6 (3.5-5.0) g/dL Urine Color Yellow Urine Appearance Cloudy H (Clear) Urine pH 6.0 (5.0-8.0) Ur Specific [place] 1.020 (1.001-1.035) Urine Protein Trace H (Negative) Urine Glucose (UA) Negative (Negative) Urine Ketones Negative (Negative) Urine Blood Negative (Negative) Urine Nitrite Negative (Negative) Urine Bilirubin Negative (Negative) Urine Urobilinogen 3.0 (<2.0) mg/dL Ur Leukocyte Esterase Small H (Negative) Urine RBC 1 (0-5) /hpf Urine WBC 4 (0-5) /hpf Ur Squamous Epith Cells 9 H (0-4) /hpf Urine Bacteria Occasional H (None) /hpf Hyaline Casts 9 H (0-2) /lpf Urine Mucus Occasional H (None) /hpf Disposition Clinical Impression: Fall, Acute insomnia Disposition: HOME SELF-CARE Condition: Fair Instructions (If sedation given, give patient instructions): Insomnia (ED) Is patient prescribed a controlled substance at d/c from ED?: No Referrals: Tacos Saha MD [Primary Care Provider] - 1-2 days Time of Disposition: 15:45
[2023-07-23 12:44] LABS: Anisocytosis Slight; Basophils # (A) 0.1 k/uL (0-0.2); Basophils % (A) 1 %; Eosinophils # (A) 0.1 k/uL (0-0.7); Eosinophils % (A) 2 %; HCT 36.7 % (34.0-46.0); HGB 11.1 gm/dL (11.4-16.0); Hypochromasia Moderate; Lymphocytes # (A) 1.2 k/uL (1.0-4.8); Lymphocytes % (A) 17 %; MCH 27.5 pg (25.0-35.0); MCHC 30.3 g/dL (31.0-37.0); MCV 90.9 fL (80.0-100.0); Mean Platelet Volume 6.8; Monocytes # (A) 0.5 k/uL (0-1.0); Monocytes % (A) 7 %; Neutrophils % (A) 71 %; Platelet Count 311 k/uL (150-450); RBC 4.04 m/uL (3.80-5.40); RDW 17.9 % (11.5-15.5); WBC 7.1 k/uL (3.8-10.6)
[2023-07-23 12:47] VITALS: RESP 18; TEMP 98.4
--- NOTE | 2023-07-23 13:13 | XR ---
EXAMINATION TYPE: XR chest 2V DATE OF EXAM: 07/23/2023 12:56 PM CLINICAL INDICATION:Female, 88 years old with history of fall; [facility] COMPARISON: Chest radiographs from 05/13/2023 TECHNIQUE: XR chest 2V Frontal and lateral views of the chest. FINDINGS: Lungs/Pleura: Prominent interstitial lung markings are seen scattered throughout the lungs with gretta ening of the diaphragm and increased lucency of the lung apices. No evidence of focal consolidation, pneumothorax or pleural effusion. Pulmonary vascularity: Unremarkable. Heart/mediastinum: Cardiomediastinal silhouette is enlarged and stable. Musculoskeletal: No acute osseous pathology. IMPRESSION: Chronic changes without acute pulmonary process. No significant change from prior.
--- NOTE | 2023-07-23 13:14 | XR ---
EXAMINATION TYPE: XR lumbar spine 2 or 3V DATE OF EXAM: 07/23/2023 12:56 PM CLINICAL INDICATION:Female, 88 years old with history of fall; [facility] COMPARISON: None TECHNIQUE: XR lumbar spine 2 or 3V - Frontal, lateral and coned in L5-S1 lateral views of the spine. FINDINGS: No evidence of any acute osseous pathology. No evidence of loss of vertebral body height i s seen. There is normal alignment of the lumbar vertebral bodies. Scattered disc space narrowing. Mul tilevel marginal osteophyte formation throughout the visualized spine. There is facet joint arthropat hy throughout the spine. Scattered at least mild and moderate neural foraminal stenosis. Fixation silvano dware anteriorly at L5-S1. Hardware appears intact. IMPRESSION: 1. No acute fracture. 2. 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 3. Surgical changes appear intact.
--- NOTE | 2023-07-23 13:15 | XR ---
EXAMINATION TYPE: XR pelvis AP view DATE OF EXAM: 07/23/2023 12:56 PM CLINICAL INDICATION:Female, 88 years old with history of fall; [facility] COMPARISON: None TECHNIQUE: The pelvis was examined in a single projection. FINDINGS: There is no evidence of fracture or dislocation. There is no soft tissue abnormality. No a bnormal calcifications are present. The spine appears intact. The hips appear intact. Osteophyte form ation of the superior acetabulum bilaterally with mild joint space narrowing. Surgical changes at L5- S1 with hardware intact. IMPRESSION: No acute osseous pathology. Mild degeneration changes of the hips.
[2023-07-23 14:52] LABS: ALT 11 U/L (4-34); AST 33 U/L (14-36); African American GFR (CKD) 82 (>60 ml/min/1.73 sqM); Albumin 3.6 g/dL (3.5-5.0); Alkaline Phosphatase 60 U/L (38-126); Anion Gap 4 mmol/L; Blood Urea Nitrogen 16 mg/dL (7-17); Calcium 9.5 mg/dL (8.4-10.2); Carbon Dioxide 30 mmol/L (22-30); Chloride 106 mmol/L (98-107); Glucose 95 mg/dL (74-99); Non-African American GFR(CKD) 72 (>60 ml/min/1.73 sqM); Potassium 4.2 mmol/L (3.5-5.1); Sodium 140 mmol/L (137-145); Total Bilirubin 0.7 mg/dL (0.2-1.3); Total Protein 6.1 g/dL (6.3-8.2)
[2023-07-23 15:17] LABS: Appearance,Urine Cloudy (Clear); Bacteria,Urine Occasional /hpf; Bilirubin,Urine Negative (Negative); Blood,Urine Negative (Negative); Color,Urine Yellow; Glucose,Urine (UA) Negative (Negative); Hyaline Casts,Urine 9 /lpf (0-2); Ketones,Urine Negative (Negative); Leukocyte Esterase,Urine Small (Negative); Mucus,Urine Occasional /hpf; Nitrite,Urine Negative (Negative); Protein,Urine Trace (Negative); RBC,Urine 1 /hpf (0-5); Squamous Epithelial Cell,Urine 9 /hpf (0-4); WBC,Urine 4 /hpf (0-5)
[2023-07-23 19:15] VITALS: BP 146/70; PULSE 50
== END 2023-07-23 18:45 | disposition home or self-care (01) ==
LOC: EC 11:32
DX: G47.00 Insomnia, unspecified (principal); Z87.891 Personal history of nicotine dependence; W19.XXXA Unspecified fall, initial encounter
CPT/HCPCS: 36415; 71046; 72100; 72170; 80053; 81001; 85025; 99284

== ENCOUNTER 2023-07-31 19:20 | Observation (INO) | payer MEDICARE, BC ==
[2023-07-31 21:05] LABS: INR 1.1 (<1.2); Partial Thromboplastin Time 25.5 sec (22.0-30.0); Prothrombin Time 11.6 sec (10.0-12.5)
[2023-07-31 21:40] LABS: Anisocytosis Slight; Basophils # (A) 0.1 k/uL (0-0.2); Basophils % (A) 1 %; Eosinophils # (A) 0.2 k/uL (0-0.7); Eosinophils % (A) 3 %; HCT 32.4 % (34.0-46.0); HGB 9.8 gm/dL (11.4-16.0); Hypochromasia Moderate; Lymphocytes # (A) 1.9 k/uL (1.0-4.8); Lymphocytes % (A) 33 %; MCH 27.1 pg (25.0-35.0); MCHC 30.3 g/dL (31.0-37.0); MCV 89.4 fL (80.0-100.0); Mean Platelet Volume 7.1; Monocytes # (A) 0.5 k/uL (0-1.0); Monocytes % (A) 9 %; Neutrophils % (A) 52 %; Platelet Count 300 k/uL (150-450); RBC 3.62 m/uL (3.80-5.40); RDW 17.7 % (11.5-15.5); WBC 5.8 k/uL (3.8-10.6)
[2023-07-31 22:53] LABS: ALT <6 U/L (4-34); AST 18 U/L (14-36); African American GFR (CKD) >90 (>60 ml/min/1.73 sqM); Albumin 1.8 g/dL (3.5-5.0); Alkaline Phosphatase 36 U/L (38-126); Anion Gap 0 mmol/L; Blood Urea Nitrogen 8 mg/dL (7-17); Carbon Dioxide 17 mmol/L (22-30); Chloride 123 mmol/L (98-107); Glucose 56 mg/dL (74-99); Magnesium 1.3 mg/dL (1.6-2.3); Non-African American GFR(CKD) >90 (>60 ml/min/1.73 sqM); Sodium 140 mmol/L (137-145); Total Bilirubin 0.4 mg/dL (0.2-1.3); Total Protein 3.7 g/dL (6.3-8.2)
[2023-07-31 23:02] LABS: Potassium 2.6 mmol/L (3.5-5.1)
[2023-07-31 23:03] LABS: Calcium 5.1 mg/dL (8.4-10.2)
[2023-07-31] MEDS: POTASSIUM CHLORIDE ER 20 MEQ TAB.ER PO STA (23:54)
[2023-08-01] MEDS: CALCIUM GLUCONATE IN NACL 1 GM in SALINE 1 100ML.BAG IVPB ONE (00:02)
--- NOTE | 2023-08-01 00:02 | XR ---
EXAMINATION TYPE: XR chest 2V DATE OF EXAM: 07/31/2023 8:57 PM CLINICAL INDICATION:Female, 88 years old with history of Weakness; [facility] COMPARISON: 07/23/2023 TECHNIQUE: XR chest 2V. Frontal and lateral views of the chest.. FINDINGS: Lungs/Pleura: Lung volumes again somewhat low. Chronic scattered pulmonary interstitial and senescent changes are redemonstrated, stable. Lungs appear somewhat radiolucent. Emphysema in the differential . No evidence of focal consolidation, pneumothorax or pleural effusion. Pulmonary vascularity: Unremarkable. Heart/mediastinum: Cardiomediastinal silhouette is enlarged and stable. Musculoskeletal: No acute osseous pathology. Degenerative changes of the spine. IMPRESSION: Overall similar exam. Chronic changes. No acute cardiopulmonary disease process.
--- NOTE | 2023-08-01 00:55 | ED ---
Weakness HPI - General Source: EMS Mode of arrival: EMS Limitations: no limitations - History of Present Illness MD Complaint: generalized weakness Onset/Timin -: days(s) Severity scale (1-10): 0 Consistency: now resolved Improves with: none Worsens with: none Associated Symptoms: denies other symptoms <Bk Davis - Last Filed: 08/01/23 04:24> <Sheridan Vernon - Last Filed: 08/01/23 06:21> - General Chief complaint: Weakness Stated complaint: Weakness Time Seen by Provider: 07/31/23 19:44 - History of Present Illness Initial comments: This patient is 88-year-old woman who arrives by ambulance to have evaluation of generalized weakness. She states that it is much worse today. She had noted onset yesterday. The patient denies focal weakness. She denies other symptoms. Patient states she is actually feeling better than when she was at home and would like to go home again. (Bk Davis) - Related Data Home Medications Medication Instructions Recorded Confirmed Pantoprazole [Protonix] 40 mg PO DAILY 04/11/18 05/13/23 Albuterol Inhaler [Ventolin Hfa 2 puff INHALATION RT-Q6H PRN 04/29/22 05/13/23 Inhaler] Apixaban [Eliquis] 2.5 mg PO BID 04/29/22 05/13/23 DULoxetine HCL [Cymbalta] 30 mg PO DAILY 04/29/22 05/13/23 Denosumab [Prolia] 60 mg SQ Q180D 04/29/22 05/13/23 Furosemide [Lasix] 20 mg PO DAILY 04/29/22 05/13/23 Isosorbide Mononitrate ER [Imdur] 30 mg PO DAILY 04/29/22 05/13/23 Melatonin 5 mg PO HS 04/29/22 05/13/23 Cholecalciferol [Vitamin D3 (25 25 mcg PO DAILY 09/30/22 05/13/23 Mcg = 1000 Iu)] Ascorbic Acid [Vitamin C] 500 mg PO DAILY 10/27/22 05/13/23 Apple Cider Vinegar Chew 1 tab PO DAILY 03/04/23 05/13/23 Atorvastatin [Lipitor] 10 mg PO HS 03/04/23 05/13/23 Ferrous Sulfate [Iron (65 MG 325 mg PO DAILY 03/04/23 05/13/23 Elemental)] Previous Rx's Medication Instructions Recorded Acetaminophen-Codeine 300-30mg 1 tab PO BID PRN #4 tab 12/28/22 [Tylenol w/codeine #3] Clopidogrel [Plavix] 75 mg PO DAILY 30 Days #30 tab 12/28/22 amLODIPine [Norvasc] 10 mg PO DAILY #30 tab 03/08/23 Lidocaine 5% Patch [Lidoderm 5% 1 patch TOPICAL DAILY PRN 14 Days 03/15/23 Patch] #14 patch ALPRAZolam [Xanax] 0.25 mg PO TID PRN #60 tab 05/17/23 Budesonide-Formot 160-4.5 Mcg 2 puff INHALATION RT-BID #1 each 05/17/23 [Symbicort 160-4.5 Mcg Inhaler] Doxycycline [Vibramycin] 100 mg PO BID #30 cap 05/17/23 Ipratropium-Albuterol Nebulize 3 ml INHALATION RT-QID #120 each 05/17/23 [Duoneb 0.5 mg-3 mg/3 ml Soln] guaiFENesin-Coden 100-10MG/5ML 10 ml PO Q6H PRN #250 ml 05/17/23 [Robitussin AC] predniSONE 10 mg PO DIRECTED #30 tab 05/17/23 Allergies Allergy/AdvReac Type Severity Reaction Status Date / Time No Known Allergies Allergy Verified 07/31/23 19:33 Review of Systems ROS Other: All systems not noted in ROS Statement are negative. Constitutional: Reports: weakness. Denies: fever Respiratory: Denies: cough, dyspnea Cardiovascular: Denies: chest pain, palpitations, edema, syncope Gastrointestinal: Denies: abdominal pain, vomiting, diarrhea Genitourinary: Denies: dysuria, hematuria Musculoskeletal: Denies: back pain Skin: Denies: rash Neurological: Denies: headache <Bk Davis - Last Filed: 08/01/23 04:24> ROS Other: All systems not noted in ROS Statement are negative. <Sheridan Vernon - Last Filed: 08/01/23 06:21> ROS Statement: Those systems with pertinent positive or pertinent negative responses have been documented in the HPI. 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 Past Psychological History: Anxiety Smoking Status: Former smoker Past Alcohol Use History: None Reported Past Drug Use History: None Reported - Past Family History Brother(s) Family Medical History: Cancer Sister(s) Family Medical History: Cancer Mother Family Medical History: Coronary Artery Disease (CAD) Additional Family Medical History / Comment(s): enlarged heart Father Family Medical History: Coronary Artery Disease (CAD), CVA/TIA <Bk Davis - Last Filed: 08/01/23 04:24> General Exam General appearance: alert, in no apparent distress Head exam: Present: atraumatic, normocephalic Eye exam: Present: normal appearance. Absent: scleral icterus, conjunctival inj ection ENT exam: Present: normal oropharynx Neck exam: Present: normal inspection, full ROM Respiratory exam: Present: normal lung sounds bilaterally. Absent: respiratory distress, wheezes, rales, rhonchi, stridor, accessory muscle use Back exam: Present: normal inspection. Absent: CVA tenderness (R), CVA tenderness (L) Neurological exam: Present: alert, CN II-XII intact. Absent: motor sensory deficit Skin exam: Present: warm, dry, intact, normal color. Absent: rash <Bk Davis - Last Filed: 08/01/23 04:24> Course Vital Signs 07/31/23 07/31/23 07/31/23 19:23 19:38 23:25 Temperature 98.2 F Pulse Rate 75 72 Respiratory 18 18 Rate Blood Pressure 128/49 133/53 O2 Sat by Pulse 88 L 97 97 Oximetry 08/01/23 08/01/23 02:00 04:00 Temperature 97.3 F L Pulse Rate 68 41 L Respiratory 18 16 Rate Blood Pressure 127/64 149/64 O2 Sat by Pulse 98 95 Oximetry EKG Findings - EKG Comments: EKG Findings:: EKG interpreted by me EKG obtained due to weakness and bradycardia noted on head of human resources EKG with a rate of 46 narrow complex regular bradycardia appears to be supraventricular bradycardia no acute ST elevations or depressions no evidence of ischemia infarction. <Sheridan Vernon - Last Filed: 08/01/23 06:21> Medical Decision Making - Lab Data Result diagrams: 07/31/23 20:30 08/01/23 02:58 <Bk Davis - Last Filed: 08/01/23 04:24> - Lab Data Result diagrams: 07/31/23 20:30 08/01/23 02:58 <Sheridan Vernon - Last Filed: 08/01/23 06:21> - Medical Decision Making Patient is an 88-year-old woman arriving to have evaluation for generalized weakness. The patient initially had labs that do not appear consistent with condition. She did receive small amounts of supplementation and labs are rechecked. Clinically the patient was feeling much better and did want to go home. We redraw the labs does not reveal significant electrolyte abnormality and patient does appear stable to go home with close follow-up. The patient had chest x-ray that I interpreted as negative for acute infiltrate, pneumothorax, congestive heart failure Was pt. sent in by a medical professional or institution ([facility], [employer] [facility], urgent care, hospital, or fpc...) When possible be specific @ -[No] Did you speak to anyone other than the patient for history (EMS, parent, family, police, friend...)? What history was obtained from this source @ -[No] Did you review nursing and triage notes (agree or disagree)? Why? @ -[I reviewed and agree with nursing and triage notes] Were old charts reviewed (outside hosp., previous admission, EMS record, old EKG, old radiological studies, urgent care reports/EKG's, fpc records)? Report findings @ -[No old charts were reviewed] Differential Diagnosis (chest pain, altered mental status, abdominal pain women, abdominal pain men, vaginal bleeding, weakness, fever, dyspnea, syncope, headache, dizziness, GI bleed, back pain, seizure, CVA, palpatations, mental health, musculoskeletal)? @ -[Differential Weakness: Hypoglycemia, shock, sepsis, hyponatremia, anemia, infection, PR, ETOH, adverse medicine reaction, overdose, stroke, this is not meant to be an all-inclusive list. EKG interpreted by me (3pts min.). @ -[ X-rays interpreted by me (1pt min.). @ -[Interpreted as above CT interpreted by me (1pt min.). @ -[None done] U/S interpreted by me (1pt. min.). @ -[None done] What testing was considered but not performed or refused? (CT, X-rays, U/S, labs)? Why? @ -[None] What meds were considered but not given or refused? Why? @ -[None] Did you discuss the management of the patient with other professionals (professionals i.e. , PA, [employer] [facility], lab, RT, psych nurse, social service agency director, is support analyst, teacher, safety officer, case picker)? Give summary @ -[No] Was smoking cessation discussed for >3mins.? @ -[No] Was critical care preformed (if so, how long)? @ -[No] Were there social determinants of health that impacted care today? How? (Homelessness, low income, unemployed, alcoholism, drug addiction, transportation, low edu. Level, literacy, decrease access to med. care, penitentiary, rehab)? @ -[No] Was there de-escalation of care discussed even if they declined (Discuss DNR or withdrawal of care, Hospice)? DNR status @ -[No] What co-morbidities impacted this encounter? (DM, HTN, Smoking, COPD, CAD, Cancer, CVA, ARF, Chemo, Hep., AIDS, mental health diagnosis, sleep apnea, morbid obesity)? @ -[None] Was patient admitted / discharged? Hospital course, mention meds given and route, prescriptions, significant lab abnormalities, going to OR and other pertinent info. @ -[See above Undiagnosed new problem with uncertain prognosis? @ -[No] Drug Therapy requiring intensive monitoring for toxicity (Heparin, Nitro, Insulin, Cardizem)? @ -[No] Were any procedures done? @ -[No] Diagnosis/symptom? @ -[Acute generalized weakness, resolved Acute, or Chronic, or Acute on Chronic? @ -[Acute Uncomplicated (without systemic symptoms) or Complicated (systemic symptoms)? @ -[Uncomplicated Side effects of treatment? @ -[No] Exacerbation, Progression, or Severe Exacerbation? @ -[No] Poses a threat to life or bodily function? How? (Chest pain, USA, PR, pneumonia, PE, COPD, DKA, ARF, appy, cholecystitis, CVA, Diverticulitis, Homicidal, Suicidal, threat to staff... and all critical care pts) @ -[No] (Bk Davis) Was patient admitted / discharged? Hospital course, mention meds given and route, prescriptions, significant lab abnormalities, going to OR and other pertinent info. @ -Admit Patient was seen and evaluated, labs had some abnormalities and repeat CMP was ordered. Upon reevaluation the lab abnormalities were due to error and her CMP was normal. However patient was noted to become quite bradycardic with heart rates in the 30s while on the monitor. She did have some ectopy. Repeat EKG was obtained and is a supraventricular bradycardia. Undiagnosed new problem with uncertain prognosis? @ -Yes Drug Therapy requiring intensive monitoring for toxicity (Heparin, Nitro, Insulin, Cardizem)? @ -No Were any procedures done? @ -No Diagnosis/symptom? @ -Symptomatic bradycardia Acute, or Chronic, or Acute on Chronic? @ -Acute Uncomplicated (without systemic symptoms) or Complicated (systemic symptoms)? @ -Default Side effects of treatment? @ -No Exacerbation, Progression, or Severe Exacerbation? @ -No Poses a threat to life or bodily function? How? (Chest pain, USA, PR, pneumonia, PE, COPD, DKA, ARF, appy, cholecystitis, CVA, Diverticulitis, Homicidal, Suicidal, threat to staff... and all critical care pts) @ -No (Sheridan Vernon) - Lab Data Lab Results 07/31/23 07/31/23 07/31/23 Range/Units 20:30 20:30 20:30 WBC 5.8 (3.8-10.6) k/uL RBC 3.62 L (3.80-5.40) m/uL Hgb 9.8 L (11.4-16.0) gm/dL Hct 32.4 L (34.0-46.0) % MCV 89.4 (80.0-100.0) fL MCH 27.1 (25.0-35.0) pg MCHC 30.3 L (31.0-37.0) g/dL RDW 17.7 H (11.5-15.5) % Plt Count 300 (150-450) k/uL MPV 7.1 Neutrophils % 52 % Lymphocytes % 33 % Monocytes % 9 % Eosinophils % 3 % Basophils % 1 % Neutrophils # 3.0 (1.3-7.7) k/uL Lymphocytes # 1.9 (1.0-4.8) k/uL Monocytes # 0.5 (0-1.0) k/uL Eosinophils # 0.2 (0-0.7) k/uL Basophils # 0.1 (0-0.2) k/uL Hypochromasia Moderate Anisocytosis Slight PT 11.6 (10.0-12.5) sec INR 1.1 (<1.2) APTT 25.5 (22.0-30.0) sec Sodium (137-145) mmol/L Potassium (3.5-5.1) mmol/L Chloride (98-107) mmol/L Carbon Dioxide (22-30) mmol/L Anion Gap mmol/L BUN (7-17) mg/dL Creatinine (0.52-1.04) mg/dL Est GFR (CKD-EPI)AfAm (>60 ml/min/1.73 sqM) Est GFR (CKD-EPI)NonAf (>60 ml/min/1.73 sqM) Glucose (74-99) mg/dL Plasma Lactic Acid Jaylon 0.9 (0.7-2.0) mmol/L Calcium (8.4-10.2) mg/dL Magnesium (1.6-2.3) mg/dL Total Bilirubin (0.2-1.3) mg/dL AST (14-36) U/L ALT (4-34) U/L Alkaline Phosphatase (38-126) U/L Troponin I (0.000-0.034) ng/mL Total Protein (6.3-8.2) g/dL Albumin (3.5-5.0) g/dL 07/31/23 07/31/23 08/01/23 Range/Units 21:55 21:55 02:58 WBC (3.8-10.6) k/uL RBC (3.80-5.40) m/uL Hgb (11.4-16.0) gm/dL Hct (34.0-46.0) % MCV (80.0-100.0) fL MCH (25.0-35.0) pg MCHC (31.0-37.0) g/dL RDW (11.5-15.5) % Plt Count (150-450) k/uL MPV Neutrophils % % Lymphocytes % % Monocytes % % Eosinophils % % Basophils % % Neutrophils # (1.3-7.7) k/uL Lymphocytes # (1.0-4.8) k/uL Monocytes # (0-1.0) k/uL Eosinophils # (0-0.7) k/uL Basophils # (0-0.2) k/uL Hypochromasia Anisocytosis PT (10.0-12.5) sec INR (<1.2) APTT (22.0-30.0) sec Sodium 140 141 (137-145) mmol/L Potassium 2.6 L* 4.6 (3.5-5.1) mmol/L Chloride 123 H 105 (98-107) mmol/L Carbon Dioxide 17 L 33 H (22-30) mmol/L Anion Gap 0 3 mmol/L BUN 8 12 (7-17) mg/dL Creatinine 0.41 L 0.69 (0.52-1.04) mg/dL Est GFR (CKD-EPI)AfAm >90 >90 (>60 ml/min/1.73 sqM) Est GFR (CKD-EPI)NonAf >90 78 (>60 ml/min/1.73 sqM) Glucose 56 L 84 (74-99) mg/dL Plasma Lactic Acid Jaylon (0.7-2.0) mmol/L Calcium 5.1 L* 9.9 (8.4-10.2) mg/dL Magnesium 1.3 L (1.6-2.3) mg/dL Total Bilirubin 0.4 0.7 (0.2-1.3) mg/dL AST 18 29 (14-36) U/L ALT <6 9 (4-34) U/L Alkaline Phosphatase 36 L 74 (38-126) U/L Troponin I <0.012 (0.000-0.034) ng/mL Total Protein 3.7 L 6.1 L (6.3-8.2) g/dL Albumin 1.8 L 3.7 (3.5-5.0) g/dL Disposition <Bk Davis - Last Filed: 08/01/23 04:24> Is patient prescribed a controlled substance at d/c from ED?: No <Sheridan Vernon - Last Filed: 08/01/23 06:21> Clinical Impression: Generalized weakness, Symptomatic bradycardia Disposition: ADMITTED IP TO THIS HOSP Condition: Stable
[2023-08-01 03:23] LABS: ALT 9 U/L (4-34); AST 29 U/L (14-36); African American GFR (CKD) >90 (>60 ml/min/1.73 sqM); Albumin 3.7 g/dL (3.5-5.0); Alkaline Phosphatase 74 U/L (38-126); Anion Gap 3 mmol/L; Blood Urea Nitrogen 12 mg/dL (7-17); Calcium 9.9 mg/dL (8.4-10.2); Carbon Dioxide 33 mmol/L (22-30); Chloride 105 mmol/L (98-107); Glucose 84 mg/dL (74-99); Non-African American GFR(CKD) 78 (>60 ml/min/1.73 sqM); Potassium 4.6 mmol/L (3.5-5.1); Sodium 141 mmol/L (137-145); Total Bilirubin 0.7 mg/dL (0.2-1.3); Total Protein 6.1 g/dL (6.3-8.2)
[2023-08-01] MEDS ORDERED: NALOXONE 0.4 MG/ML 1 ML VIAL IV PRN (05:32)
--- NOTE | 2023-08-01 13:04 | P.CRDCN ---
History of Present Illness Consult date: 08/01/23 Reason for Consult (text): Bradycardia History of present illness: History of present illness: This is an 88-year-old female patient of Dr. Tristan Lott with past medical history of paroxysmal atrial fibrillation, hypertension, bradycardia, dyslipidemia. We have been asked to evaluate the patient for bradycardia. Patient states that she presented to the hospital due to weakness. She denies any lightheadedness or dizziness no syncopal episodes and no chest pain. Patient is on Eliquis at home but no beta-blockers due to known history of bradycardia. Patient is seen today in the emergency center waiting for a bed on the cardiac stepdown unit. EKG junctional rhythm Chest x-ray: Chronic changes. No acute cardiopulmonary disease process. Laboratory studies: WBC 5.8, hemoglobin 9.8. Initial potassium 2.6 and now 4.6. Chloride 123 now 105, initial CO2 17 now 33. BUN 12 and creatinine 0.69. Calcium 5.1 now 9.9. Magnesium 1.3. Troponin negative x 1. Home cardiac medications: Amlodipine 10 mg daily, aspirin 81 mg daily, atorvastatin 10 mg at bedtime, Eliquis 2.5 mg twice daily, isosorbide ER 30 mg 1 daily, Lasix 20 mg daily, Plavix 75 mg daily (according to office records dated 05/29/2023) Limited echocardiogram performed on 03/05/2023 revealed normal LV function. Echocardiogram performed 12/22/2022 revealed normal left ventricular size and systolic function with moderate LVH. Trace to mild mitral regurgitation. Mild tricuspid regurgitation with mild pulmonary hypertension. Event monitor 03/21 - 03/22/2023: Primary rhythm was sinus rhythm with average heart rate 60 bpm. Minimum heart rate was 42 bpm and maximum 95. SVT 31 events with longest event 11 beats at the fastest event rate of 126 bpm. 1 pause event 2108 MS. Lexiscan Cardiolite stress test performed in the office on 02/12/2019 was negative stress test by EKG criteria. Normal myocardial perfusion and function. Review Of Systems: At the time of my exam: CONSTITUTIONAL: Denies fever or chills. Reports weakness HEENT: Denies blurred vision, vision changes, or eye pain. Denies hemoptysis CARDIOVASCULAR: Denies chest pain. Denies orthopnea. Denies PND. Denies palpitations RESPIRATORY: Denies shortness of breath. GASTROINTESTINAL: Denies abdominal pain. Denies nausea or vomiting. HEMATOLOGIC: Denies bleeding disorders. GENITOURINARY: Denies any blood in urine. SKIN: Denies pruitis. Denies rash. Physical examination: Gen: This is an 88-year-old female in no acute distress VS: reviewed, blood pressure 143/66, heart rate 69, pulse ox 98% on 2 L nasal cannula. HEENT: Head is atraumatic, normocephalic. Pupils equal, round. Sclerae is anicteric. NECK: Supple. No JVD. LUNGS: Clear to auscultation. No wheezes or rhonchi. No intercostal retracti ons. HEART: Regular rate and rhythm. No murmur. ABDOMEN: Soft No tenderness. EXTREMITIES: No pedal edema. No calf tenderness. NEUROLOGICAL: Patient is awake, alert and oriented x3. Assessment: Bradycardia with junctional rhythm, signs of sick sinus syndrome rule out reversible causes Severe hypokalemia Paroxysmal atrial fibrillation currently in sinus rhythm Hypertension Dyslipidemia Plan: Resume patient's home cardiac medications Avoid AV blocking agents Obtain troponins Obtain TSH and free T4 Obtain 2-D echocardiogram and Doppler study to assess cardiac structure and function Continue telemetry monitoring Further recommendations to follow based upon clinical course Thank you kindly for this consultation. Nurse practitioner note has been reviewed, I agree with documented findings and plan of care. Patient was seen and examined. 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 Past Psychological History: Anxiety Smoking Status: Former smoker Past Alcohol Use History: None Reported Past Drug Use History: None Reported - Past Family History Brother(s) Family Medical History: Cancer Sister(s) Family Medical History: Cancer Mother Family Medical History: Coronary Artery Disease (CAD) Additional Family Medical History / Comment(s): enlarged heart Father Family Medical History: Coronary Artery Disease (CAD), CVA/TIA Medications and Allergies Home Medications Medication Instructions Recorded Confirmed Type Pantoprazole [Protonix] 40 mg PO DAILY 04/11/18 05/13/23 History Albuterol Inhaler [Ventolin Hfa 2 puff INHALATION RT-Q6H PRN 04/29/22 05/13/23 History Inhaler] Apixaban [Eliquis] 2.5 mg PO BID 04/29/22 05/13/23 History DULoxetine HCL [Cymbalta] 30 mg PO DAILY 04/29/22 05/13/23 History Denosumab [Prolia] 60 mg SQ Q180D 04/29/22 05/13/23 History Furosemide [Lasix] 20 mg PO DAILY 04/29/22 05/13/23 History Isosorbide Mononitrate ER [Imdur] 30 mg PO DAILY 04/29/22 05/13/23 History Melatonin 5 mg PO HS 04/29/22 05/13/23 History Cholecalciferol [Vitamin D3 (25 25 mcg PO DAILY 09/30/22 05/13/23 History Mcg = 1000 Iu)] Ascorbic Acid [Vitamin C] 500 mg PO DAILY 10/27/22 05/13/23 History Acetaminophen-Codeine 300-30mg 1 tab PO BID PRN #4 tab 12/28/22 05/13/23 Rx [Tylenol w/codeine #3] Clopidogrel [Plavix] 75 mg PO DAILY 30 Days #30 tab 12/28/22 05/13/23 Rx Apple Cider Vinegar Chew 1 tab PO DAILY 03/04/23 05/13/23 History Atorvastatin [Lipitor] 10 mg PO HS 03/04/23 05/13/23 History Ferrous Sulfate [Iron (65 MG 325 mg PO DAILY 03/04/23 05/13/23 History Elemental)] amLODIPine [Norvasc] 10 mg PO DAILY #30 tab 03/08/23 05/13/23 Rx Lidocaine 5% Patch [Lidoderm 5% 1 patch TOPICAL DAILY PRN 14 Days 03/15/2305/12 Rx Patch] #14 patch ALPRAZolam [Xanax] 0.25 mg PO TID PRN #60 tab 05/17/23 Rx Budesonide-Formot 160-4.5 Mcg 2 puff INHALATION RT-BID #1 each 05/17/23 Rx [Symbicort 160-4.5 Mcg Inhaler] Doxycycline [Vibramycin] 100 mg PO BID #30 cap 05/17/23 Rx Ipratropium-Albuterol Nebulize 3 ml INHALATION RT-QID #120 each 05/17/23 Rx [Duoneb 0.5 mg-3 mg/3 ml Soln] guaiFENesin-Coden 100-10MG/5ML 10 ml PO Q6H PRN #250 ml 05/17/23 Rx [Robitussin AC] predniSONE 10 mg PO DIRECTED #30 tab 05/17/23 Rx Allergies Allergy/AdvReac Type Severity Reaction Status Date / Time No Known Allergies Allergy Verified 07/31/23 19:33 Physical Exam Vitals: Vital Signs Temp Pulse Resp BP Pulse Ox 08/01/23 04:00 97.3 F L 41 L 16 149/64 95 08/01/23 02:00 68 18 127/64 98 07/31/23 23:25 72 18 133/53 97 07/31/23 19:38 97 07/31/23 19:23 98.2 F 75 18 128/49 88 L Intake and Output 07/31/23 08/01/23 08/01/23 22:59 06:59 14:59 Other: Weight 63.503 kg Results 07/31/23 20:30 08/01/23 02:58 Cardiac Enzymes 07/31/23 07/31/23 08/01/23 Range/Units 21:55 21:55 02:58 AST 18 29 (14-36) U/L Troponin I <0.012 (0.000-0.034) ng/mL Coagulation 07/31/23 Range/Units 20:30 PT 11.6 (10.0-12.5) sec APTT 25.5 (22.0-30.0) sec CBC 07/31/23 Range/Units 20:30 WBC 5.8 (3.8-10.6) k/uL RBC 3.62 L (3.80-5.40) m/uL Hgb 9.8 L (11.4-16.0) gm/dL Hct 32.4 L (34.0-46.0) % Plt Count 300 (150-450) k/uL Comprehensive Metabolic Panel 07/31/23 08/01/23 Range/Units 21:55 02:58 Sodium 140 141 (137-145) mmol/L Potassium 2.6 L* 4.6 (3.5-5.1) mmol/L Chloride 123 H 105 (98-107) mmol/L Carbon Dioxide 17 L 33 H (22-30) mmol/L BUN 8 12 (7-17) mg/dL Creatinine 0.41 L 0.69 (0.52-1.04) mg/dL Glucose 56 L 84 (74-99) mg/dL Calcium 5.1 L* 9.9 (8.4-10.2) mg/dL AST 18 29 (14-36) U/L ALT <6 9 (4-34) U/L Alkaline Phosphatase 36 L 74 (38-126) U/L Total Protein 3.7 L 6.1 L (6.3-8.2) g/dL Albumin 1.8 L 3.7 (3.5-5.0) g/dL Current Medications Generic Name Dose Route Start Last Admin Trade Name Freq PRN Reason Stop Dose Admin Naloxone HCl 0.2 mg 08/01/23 05:32 Naloxone 0.4 Mg/Ml 1 Ml Vial IV Q2M PRN Opioid Reversal Intake and Output 07/31/23 08/01/23 08/01/23 22:59 06:59 14:59 Other: Weight 63.503 kg 07/31/23 20:30 08/01/23 02:58
[2023-08-01] MEDS: ATORVASTATIN 10 MG TAB PO SCH (13:26)
[2023-08-01] MEDS: APIXABAN 2.5 MG TABLET PO SCH (13:26)
[2023-08-01] MEDS: amLODIPine 10 MG TAB PO SCH (13:27)
[2023-08-01] MEDS: ISOSORBIDE MONONITRATE ER 30 MG TAB.ER.24H PO SCH (14:34)
--- NOTE | 2023-08-01 16:47 | P.HPIM ---
History of Present Illness H&P Date: 08/01/23 HISTORY OF PRESENT ILLNESS: 88-year-old one of my office patient for many years active medical history of COPD, CHF, A-fib, memory loss, recurrent UTI, recurrent URI and pneumonia was hospitalized last time in May 13 for bilateral pneumonia and significant shortness of breath, patient has been in the emergency department a few times for multiple complaints but not hospitalized did not need any extra help. She was brought to the emergency department by family very late last night for evaluation of severe generalized weakness and fatigue denies any focal symptoms overall with her dementia make it quite bit hard to understand the overall complain that she had generalized weakness and fatigue low-grade temperature nausea lack of appetite and worsening constitutional symptoms. As she is waiting her laboratory value came back quite bit abnormal initially w ith severe hypokalemia, hyper chloremia, hypocalcemia and low-grade anemia with hemoglobin of 9.8 which is slightly bit different from before kidney function is no change and has been good repeat lab shows all those electrolyte abnormality were Normal may be the value of her lab was quite better at the time. While she been evaluated her throat. Monitor showed severe bradycardia with pulse rate running in the 30s and EKG showed slight irregularity but not as a slow. Patient will be hospitalized will be kept on heart monitor and evaluated by cardiology for possibility of potential of pacemaker placement. REVIEW OF SYSTEMS: CONSTITUTIONAL: Well-developed elderly in mild respiratory distress. EYES: No icterus sclerae, no conjunctivitis. EARS, NOSE, MOUTH, THROAT, and FACE: No sore throat, lymphadenopathy, carotid bruits or deformity. RESPIRATORY: Positive shortness of breath cough and wheezes. CARDIOVASCULAR: Positive PND orthopnea palpitation. GASTROINTESTINAL: Abdominal discomfort with nausea no vomiting diarrhea constipation no GI bleed no distention or masses. GENITOURINARY: recurrent UTI with mild incontinence. INTEGUMENT/BREAST: Negative for any muscular injury with mild osteoarthritis.. HEMATOLOGIC/LYMPHATIC: Negative for bleed or purpura. MUSCULOSKELTAL: Generalized muscle and joint pain. NEURLOGICAL: No LOC, Sz or syncope, blurred vision dizziness or abnormality.. Slight memory loss. BEHAVIORAL/PSYCH: Negative. ENDOCRINE: Negative. PHYSICAL EXAMINATION: General Appearance: Alert, elderly looks in no distress. Neck HEENT: Supple, no lymphadenopathy, no thyroid enlargement, no carotid bruits. Slight congestion and swelling the back of her throat. Lungs: Clear to auscultation with crackles in the bases positive rhonchi and slight increased wheezes on the right side. Chest Wall: Decreased expansion with deep inspiration no tenderness and no deformity was found on exam, no costochondral pain or discomfort. Heart: Regular rate and rhythm, S1, S2 normal, no murmur, rub or gallop. Back: Symmetric, no curvature, ROM normal, no CVA tenderness. Abdomen: Soft, non-tender, bowel sounds active all four quadrants, no masses, no organomegaly. Extremities: Trace edema decreased pulse dorsalis pedis bilaterally with mild arthritis and slight discoloration from the knee down. Pulses: 2+ and symmetric. Skin: Skin color, texture, tugor normal, no rashes or lesions. Neurologic: Alert oriented with slight confusion cranial nerves II through XII intact, positive generalized weakness still have slight weakness on the left side compared to the right side. ASSESSMENT AND PLAN: _Severe bradycardia with history of A-fib with RVR the patient is not on any beta-noam or calcium channel noam, if this is the case patient probably had severe bradycardia tacky syndrome might require pacemaker will watch for on a heart monitor request cardiology consultation. _Severe generalized weakness and fatigue with constitutional symptoms mostly can be explained with her overall severe bradycardia if that the case probably pacemaker will help. _Low-grade iron deficiency anemia: Significantly decreased from before specially in her age and being on anticoagulation the possibility of gastrointestinal bleed is always high repeat CBC, continue proton pump inhibitor and 0 to do Hemoccult watch for any active GI bleed. _Paroxysmal atrial fibrillation: Pulse rate is under control continue on Eliquis, patient become extremely and slow pulse rate with beta-noam has been off. _History of CVA: Still have slight residual with abnormal balance and gait and generalized weakness with mild memory loss. Continue anticoagulation and continue with her management of blood pressure. _Hypertension: Blood pressure is well-controlled currently on amlodipine 10 mg a day, and continue isosorbide 30 mg a day still on diuretics. _History of seizure disorders: No active seizure activity at this point doing well stable has been off antiseizure. _COPD: Without exacerbation: Continue albuterol/ipratropium and continue Symbicort. 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 _Diastolic congestive heart failure: Remain on furosemide, Was supposed to be on angiotensin receptor product. _Previous history of DVT: Still on anticoagulation with Eliquis. _Hyperlipidemia: Will continue atorvastatin 10 mg a day. _DVT prophylaxis: Still on anticoagulation with Eliquis. _GI prophylaxis: Will continue pantoprazole 40 mg a day. CODE STATUS: Full code. Admit patient to the inpatient service for 1-2 night stay. 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 Past Psychological History: Anxiety Smoking Status: Former smoker Past Alcohol Use History: None Reported Past Drug Use History: None Reported - Past Family History Brother(s) Family Medical History: Cancer Sister(s) Family Medical History: Cancer Mother Family Medical History: Coronary Artery Disease (CAD) Additional Family Medical History / Comment(s): enlarged heart Father Family Medical History: Coronary Artery Disease (CAD), CVA/TIA Medications and Allergies Home Medications Medication Instructions Recorded Confirmed Type Pantoprazole [Protonix] 40 mg PO DAILY 04/11/18 05/13/23 History Albuterol Inhaler [Ventolin Hfa 2 puff INHALATION RT-Q6H PRN 04/29/22 05/13/23 History Inhaler] Apixaban [Eliquis] 2.5 mg PO BID 04/29/22 05/13/23 History DULoxetine HCL [Cymbalta] 30 mg PO DAILY 04/29/22 05/13/23 History Denosumab [Prolia] 60 mg SQ Q180D 04/29/22 05/13/23 History Furosemide [Lasix] 20 mg PO DAILY 04/29/22 05/13/23 History Isosorbide Mononitrate ER [Imdur] 30 mg PO DAILY 04/29/22 05/13/23 History Melatonin 5 mg PO HS 04/29/22 05/13/23 History Cholecalciferol [Vitamin D3 (25 25 mcg PO DAILY 09/30/22 05/13/23 History Mcg = 1000 Iu)] Ascorbic Acid [Vitamin C] 500 mg PO DAILY 10/27/22 05/13/23 History Acetaminophen-Codeine 300-30mg 1 tab PO BID PRN #4 tab 12/28/22 05/13/23 Rx [Tylenol w/codeine #3] Clopidogrel [Plavix] 75 mg PO DAILY 30 Days #30 tab 12/28/22 05/13/23 Rx Apple Cider Vinegar Chew 1 tab PO DAILY 03/04/23 05/13/23 History Atorvastatin [Lipitor] 10 mg PO HS 03/04/23 05/13/23 History Ferrous Sulfate [Iron (65 MG 325 mg PO DAILY 03/04/23 05/13/23 History Elemental)] amLODIPine [Norvasc] 10 mg PO DAILY #30 tab 03/08/23 05/13/23 Rx Lidocaine 5% Patch [Lidoderm 5% 1 patch TOPICAL DAILY PRN 14 Days 03/15/23 05/13/23 Rx Patch] #14 patch ALPRAZolam [Xanax] 0.25 mg PO TID PRN #60 tab 05/17/23 Rx Budesonide-Formot 160-4.5 Mcg 2 puff INHALATION RT-BID #1 each 05/17/23 Rx [Symbicort 160-4.5 Mcg Inhaler] Doxycycline [Vibramycin] 100 mg PO BID #30 cap 05/17/23 Rx Ipratropium-Albuterol Nebulize 3 ml INHALATION RT-QID #120 each 05/17/23 Rx [Duoneb 0.5 mg-3 mg/3 ml Soln] guaiFENesin-Coden 100-10MG/5ML 10 ml PO Q6H PRN #250 ml 05/17/23 Rx [Robitussin AC] predniSONE 10 mg PO DIRECTED #30 tab 05/17/23 Rx Allergies Allergy/AdvReac Type Severity Reaction Status Date / Time No Known Allergies Allergy Verified 07/31/23 19:33 Physical Exam Vitals: Vital Signs Temp Pulse Resp BP Pulse Ox 08/01/23 04:00 97.3 F L 41 L 16 149/64 95 08/01/23 02:00 68 18 127/64 98 07/31/23 23:25 72 18 133/53 97 07/31/23 19:38 97 07/31/23 19:23 98.2 F 75 18 128/49 88 L Intake and Output 07/31/23 07/31/23 08/01/23 14:59 22:59 06:59 Other: Weight 63.503 kg Results CBC & Chem 7: 07/31/23 20:30 08/01/23 02:58 Labs: Abnormal Lab Results - Last 24 Hours (Table) 07/31/23 07/31/23 08/01/23 Range/Units 20:30 21:55 02:58 RBC 3.62 L (3.80-5.40) m/uL Hgb 9.8 L (11.4-16.0) gm/dL Hct 32.4 L (34.0-46.0) % MCHC 30.3 L (31.0-37.0) g/dL RDW 17.7 H (11.5-15.5) % Potassium 2.6 L* (3.5-5.1) mmol/L Chloride 123 H (98-107) mmol/L Carbon Dioxide 17 L 33 H (22-30) mmol/L Creatinine 0.41 L (0.52-1.04) mg/dL Glucose 56 L (74-99) mg/dL Calcium 5.1 L* (8.4-10.2) mg/dL Magnesium 1.3 L (1.6-2.3) mg/dL Alkaline Phosphatase 36 L (38-126) U/L Total Protein 3.7 L 6.1 L (6.3-8.2) g/dL Albumin 1.8 L (3.5-5.0) g/dL
[2023-08-01] MEDS ORDERED: ALBUTEROL HFA INHALER INHALATION PRN (16:51)
[2023-08-01] MEDS: QUEtiapine 25 MG TAB PO SCH (23:21)
[2023-08-01] MEDS: MELATONIN 1 MG TAB PO SCH (23:57)
[2023-08-02] MEDS: FUROSEMIDE 20 MG TAB PO SCH (08:44)
[2023-08-02] MEDS: CLOPIDOGREL 75 MG TAB PO SCH (08:44)
[2023-08-02] MEDS: FERROUS SULFATE 325 MG TAB PO SCH (08:44)
[2023-08-02] MEDS: ASCORBIC ACID 500 MG TAB PO SCH (08:45)
[2023-08-02] MEDS: PANTOPRAZOLE 40 MG TABLET PO SCH (08:45)
[2023-08-02] MEDS: DULoxetine HCL 30 MG CAPSULE.DR PO SCH (08:45)
[2023-08-02] MEDS: CHOLECALCIFEROL 25 MCG (1000 IU) TABLET PO SCH (08:45)
[2023-08-02] MEDS: ASPIRIN 81 MG PO SCH (08:45)
[2023-08-02 08:56] LABS: Glucose,Whole Blood 97 mg/dL (70-110)
--- NOTE | 2023-08-02 09:35 | P.PN ---
Subjective Progress Note Date: 08/02/23 Reason for Consult (text): Bradycardia History of present illness: This is an 88-year-old female patient of Dr. Tristan Lott with past medical history of paroxysmal atrial fibrillation, hypertension, bradycardia, dyslipidemia. We have been asked to evaluate the patient for bradycardia. Patient states that she presented to the hospital due to weakness. She denies any lightheadedness or dizziness no syncopal episodes and no chest pain. Patient is on Eliquis at home but no beta-blockers due to known history of bradycardia. Patient is seen today in the emergency center waiting for a bed on the cardiac stepdown unit. EKG junctional rhythm Chest x-ray: Chronic changes. No acute cardiopulmonary disease process. Laboratory studies: WBC 5.8, hemoglobin 9.8. Initial potassium 2.6 and now 4.6. Chloride 123 now 105, initial CO2 17 now 33. BUN 12 and creatinine 0.69. Calcium 5.1 now 9.9. Magnesium 1.3. Troponin negative x 1. Home cardiac medications: Amlodipine 10 mg daily, aspirin 81 mg daily, atorvastatin 10 mg at bedtime, Eliquis 2.5 mg twice daily, isosorbide ER 30 mg 1 daily, Lasix 20 mg daily, Plavix 75 mg daily (according to office records dated 05/29/2023) Limited echocardiogram performed on 03/05/2023 revealed normal LV function. Echocardiogram performed 12/22/2022 revealed normal left ventricular size and systolic function with moderate LVH. Trace to mild mitral regurgitation. Mild tricuspid regurgitation with mild pulmonary hypertension. Event monitor 03/21 - 03/22/2023: Primary rhythm was sinus rhythm with average heart rate 60 bpm. Minimum heart rate was 42 bpm and maximum 95. SVT 31 events with longest event 11 beats at the fastest event rate of 126 bpm. 1 pause event 2108 MS. Lexiscan Cardiolite stress test performed in the office on 02/12/2019 was negative stress test by EKG criteria. Normal myocardial perfusion and function. 08/01 Patient is seen today in follow-up in the emergency center. She denies any new concerns. Nursing denies any new concerns. Telemetry strips have been reviewed and no sign of pauses or significant arrhythmia. Blood pressure 153/86, heart rate 94, pulse ox 95% on 2 L nasal cannula. Troponins are negative x 3 draws. TSH 1.21. No reversible causes identified for bradycardia. Physical examination: Gen: This is an 88-year-old female in no acute distress VS: reviewed no reversible HEENT: Head is atraumatic, normocephalic. Pupils equal, round. Sclerae is anicteric. NECK: Supple. No JVD. LUNGS: Clear to auscultation. No wheezes or rhonchi. No intercostal retractions. HEART: Regular rate and rhythm. No murmur. ABDOMEN: Soft No tenderness. EXTREMITIES: No pedal edema. No calf tenderness. NEUROLOGICAL: Patient is awake, alert and oriented x3. Assessment: Bradycardia with junctional rhythm, signs of sick sinus syndrome rule out reversible causes Severe hypokalemia Paroxysmal atrial fibrillation currently in sinus rhythm Hypertension Dyslipidemia Plan: Continue patient's home cardiac medications Avoid AV blocking agents Patient will have event monitor at the time of discharge, 30-day. Patient is cleared from cardiology for discharge and may follow-up with Dr. Lott in 5 to 6 weeks. Nurse practitioner note has been reviewed, I agree with documented findings and plan of care. Patient was seen and examined. Objective - Vital Signs Vital signs: Vital Signs Temp 97.3 F L 08/01/23 04:00 Pulse 64 08/02/23 06:55 Resp 22 08/02/23 06:55 BP 164/96 08/02/23 06:55 Pulse Ox 94 L 08/02/23 07:48 FiO2 - Labs CBC & Chem 7: 07/31/23 20:30 08/01/23 02:58
[2023-08-02] MEDS: ALPRAZolam 0.25 MG TAB PO PRN (11:33)
[2023-08-02] MEDS: traMADol 50 MG TAB PO PRN (21:14)
[2023-08-02] MEDS: Acetaminophen-Codeine 300-30mg TAB PO PRN (21:14)
--- NOTE | 2023-08-02 22:36 | P.PN ---
Subjective Progress Note Date: 08/02/23 HISTORY OF PRESENT ILLNESS: 88-year-old one of my office patient for many years active medical history of COPD, CHF, A-fib, memory loss, recurrent UTI, recurrent URI and pneumonia was hospitalized last time in May 13 for bilateral pneumonia and significant shortness of breath, patient has been in the emergency department a few times for multiple complaints but not hospitalized did not need any extra help. She was brought to the emergency department by family very late last night for evaluation of severe generalized weakness and fatigue denies any focal symptoms overall with her dementia make it quite bit hard to understand the overall complain that she had generalized weakness and fatigue low-grade temperature nausea lack of appetite and worsening constitutional symptoms. As she is waiting her laboratory value came back quite bit abnormal initially with severe hypokalemia, hyper chloremia, hypocalcemia and low-grade anemia with hemoglobin of 9.8 which is slightly bit different from before kidney function is no change and has been good repeat lab shows all those electrolyte abnormality were Normal may be the value of her lab was quite better at the time. While she been evaluated her throat. Monitor showed severe bradycardia with pulse rate running in the 30s and EKG showed slight irregularity but not as a slow. Patient will be hospitalized will be kept on heart monitor and evaluated by cardiology for possibility of potential of pacemaker placement. 08/02/2023: Review and with the strip with cardiology last 24 hours did not show any further pauses or any major arrhythmia required pacemaker apparently cardiology final decision is to have patient do event monitor or loop recorder monitor or long-term heart monitor might be beneficial to watch and intervene when needed to put a pacemaker in I still believe based on patient history and watch her for the last 2 years with severe bradycardia with a minimum change that she is going to need pacemaker at some point is just happened to be without testing not confirmative enough this time that it required. With the significant altered mental status worsening confusion along with severe fatigue and tiredness which is all to be expected with patient's current condition and severe bradycardia along with recovering from TIA and advanced dementia. Not clear what family expect specially if patient does not require pacemaker at this point try to contact the son today not successful left a message and we should ask social work msw to help with discharge planning because patient opted now almost bedridden required more help to get out of bed not ambulating and I am not quite sure how much SNF for rehab is going to add to her current condition if family cannot manage was going on currently patient probably require long-term care more than rehab. But still can request physical or recreational therapy for help. Second factor at this point which is UTI culture and UA has not been completed sadly will continue to watch for UA for possible urinary tract infection patient at this point still not on any antibiotics currently without significant confusion and worsening dementia and encephalopathy as well. After clearing any abnormality with the blood test she had early with her last blood test on 08/01/2023 continue to be quite normal including her thyroid test only thing still missing the UA. Her chest x-ray failed to show any infection at this point patient last event was mostly consistent with COPD exacerbation and pneumonia. REVIEW OF SYSTEMS: CONSTITUTIONAL: Well-developed elderly in mild respiratory distress. EYES: No icterus sclerae, no conjunctivitis. EARS, NOSE, MOUTH, THROAT, and FACE: No sore throat, lymphadenopathy, carotid bruits or deformity. RESPIRATORY: Positive shortness of breath cough and wheezes. CARDIOVASCULAR: Positive PND orthopnea palpitation. GASTROINTESTINAL: Abdominal discomfort with nausea no vomiting diarrhea constipation no GI bleed no distention or masses. GENITOURINARY: recurrent UTI with mild incontinence. INTEGUMENT/BREAST: Negative for any muscular injury with mild osteoarthritis.. HEMATOLOGIC/LYMPHATIC: Negative for bleed or purpura. MUSCULOSKELTAL: Generalized muscle and joint pain. NEURLOGICAL: No LOC, Sz or syncope, blurred vision dizziness or abnormality.. Slight memory loss. BEHAVIORAL/PSYCH: Negative. ENDOCRINE: Negative. PHYSICAL EXAMINATION: General Appearance: Alert, elderly looks in no distress. Neck HEENT: Supple, no lymphadenopathy, no thyroid enlargement, no carotid bruits. Slight congestion and swelling the back of her throat. Lungs: Clear to auscultation with crackles in the bases positive rhonchi and slight increased wheezes on the right side. Chest Wall: Decreased expansion with deep inspiration no tenderness and no deformity was found on exam, no costochondral pain or discomfort. Heart: Regular rate and rhythm, S1, S2 normal, no murmur, rub or gallop. Back: Symmetric, no curvature, ROM normal, no CVA tenderness. Abdomen: Soft, non-tender, bowel sounds active all four quadrants, no masses, no organomegaly. Extremities: Trace edema decreased pulse dorsalis pedis bilaterally with mild arthritis and slight discoloration from the knee down. Pulses: 2+ and symmetric. Skin: Skin color, texture, tugor normal, no rashes or lesions. Neurologic: Alert oriented with slight confusion cranial nerves II through XII intact, positive generalized weakness still have slight weakness on the left side compared to the right side. ASSESSMENT AND PLAN: _Severe bradycardia with history of A-fib with RVR the patient is not on any beta-noam or calcium channel noam, all other possibility leading to bradycardia has been excluded including electrolyte imbalance, anemia, hypothyroidism and medication. Continue to watch carefully no pauses or severe bradycardia last 24 hours with cardiology when do event monitor and to watch it if showing any significant arrhythmia might require pacemaker in the next few weeks. _Severe generalized weakness and fatigue with constitutional symptoms mostly can be explained with her overall severe bradycardia apparently does not require pacemaker so far patient might still have UTI UA has not been completed so far still waiting for the result. _Low-grade iron deficiency anemia: Significantly decreased from before specially in her age and being on anticoagulation the possibility of gastrointestinal bleed is always high repeat CBC, continue proton pump inhibitor and 0 to do Hemoccult watch for any active GI bleed. _Paroxysmal atrial fibrillation: Remain on anticoagulation which will be continued for now. _History of CVA: Had close significant problem with memory loss and cardiac change with abnormal balance gait tiredness fatigue and mobility problem. Which patient will continue to require help. _Hypertension: Blood pressure is well-controlled currently on amlodipine 10 mg a day, and continue isosorbide 30 mg a day still on diuretics. _History of seizure disorders: No active seizure activity at this point doing well stable has been off antiseizure. _COPD: Without exacerbation: Continue albuterol/ipratropium and continue Symbicort. 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 _Diastolic congestive heart failure: Remain on furosemide, Was supposed to be on angiotensin receptor product. _Previous history of DVT: Still on anticoagulation with Eliquis. _Hyperlipidemia: Will continue atorvastatin 10 mg a day. CODE STATUS: Full code. Discussion patient does not require pacemaker at this point there is no other clear evidence for why she is in that severe fatigue and tiredness mobility still significantly decreased still waiting for UA at this point EEG along with UA and lab will be done tomorrow and hopefully will need to family and discussed with social work msw Possibility of going home with help or if the family need any help for long-term care. Objective - Vital Signs Vital signs: Vital Signs Temp 97.3 F L 08/01/23 04:00 Pulse 85 08/02/23 04:11 Resp 20 08/02/23 04:11 BP 140/67 08/02/23 04:11 Pulse Ox 100 08/02/23 04:11 FiO2 Intake & Output 08/01/23 08/01/23 08/02/23 06:59 18:59 06:59 Weight 63.503 kg - Labs CBC & Chem 7: 07/31/23 20:30 08/01/23 02:58
[2023-08-03 00:42] LABS: Appearance,Urine Clear (Clear); Bacteria,Urine Rare /hpf; Bilirubin,Urine Negative (Negative); Blood,Urine Negative (Negative); Color,Urine Colorless; Glucose,Urine (UA) Negative (Negative); Hyaline Casts,Urine 1 /lpf (0-2); Ketones,Urine Negative (Negative); Leukocyte Esterase,Urine Small (Negative); Mucus,Urine Rare /hpf; Nitrite,Urine Negative (Negative); Protein,Urine Negative (Negative); RBC,Urine 1 /hpf (0-5); Specific Gravity,Urine 1.008 (1.001-1.035); Urobilinogen,Urine <2.0 mg/dL (<2.0); WBC,Urine 15 /hpf (0-5)
[2023-08-03 12:21] LABS: ALT 10 U/L (4-34); AST 26 U/L (14-36); African American GFR (CKD) 79 (>60 ml/min/1.73 sqM); Albumin 3.4 g/dL (3.5-5.0); Alkaline Phosphatase 74 U/L (38-126); Anion Gap 2 mmol/L; Blood Urea Nitrogen 12 mg/dL (7-17); Calcium 9.7 mg/dL (8.4-10.2); Carbon Dioxide 33 mmol/L (22-30); Chloride 104 mmol/L (98-107); Glucose 109 mg/dL (74-99); Non-African American GFR(CKD) 68 (>60 ml/min/1.73 sqM); Potassium 4.2 mmol/L (3.5-5.1); Sodium 139 mmol/L (137-145); Total Bilirubin 0.7 mg/dL (0.2-1.3); Total Protein 5.8 g/dL (6.3-8.2)
[2023-08-03 12:51] LABS: Anisocytosis Slight; HCT 37.9 % (34.0-46.0); HGB 11.2 gm/dL (11.4-16.0); Hypochromasia Marked; MCH 27.1 pg (25.0-35.0); MCHC 29.6 g/dL (31.0-37.0); MCV 91.3 fL (80.0-100.0); Mean Platelet Volume 7.6; Platelet Count 326 k/uL (150-450); RBC 4.15 m/uL (3.80-5.40); RDW 17.2 % (11.5-15.5)
--- NOTE | 2023-08-03 17:16 | P.PN ---
Subjective Progress Note Date: 08/03/23 Reason for Consult (text): Bradycardia History of present illness: This is an 88-year-old female patient of Dr. Tristan Lott with past medical history of paroxysmal atrial fibrillation, hypertension, bradycardia, dyslipidemia. We have been asked to evaluate the patient for bradycardia. Patient states that she presented to the hospital due to weakness. She denies any lightheadedness or dizziness no syncopal episodes and no chest pain. Patient is on Eliquis at home but no beta-blockers due to known history of bradycardia. Patient is seen today in the emergency center waiting for a bed on the cardiac stepdown unit. EKG junctional rhythm Chest x-ray: Chronic changes. No acute cardiopulmonary disease process. Laboratory studies: WBC 5.8, hemoglobin 9.8. Initial potassium 2.6 and now 4.6. Chloride 123 now 105, initial CO2 17 now 33. BUN 12 and creatinine 0.69. Calcium 5.1 now 9.9. Magnesium 1.3. Troponin negative x 1. Home cardiac medications: Amlodipine 10 mg daily, aspirin 81 mg daily, atorvastatin 10 mg at bedtime, Eliquis 2.5 mg twice daily, isosorbide ER 30 mg 1 daily, Lasix 20 mg daily, Plavix 75 mg daily (according to office records dated 05/29/2023) Limited echocardiogram performed on 03/05/2023 revealed normal LV function. Echocardiogram performed 12/22/2022 revealed normal left ventricular size and systolic function with moderate LVH. Trace to mild mitral regurgitation. Mild tricuspid regurgitation with mild pulmonary hypertension. Event monitor 03/21 - 03/22/2023: Primary rhythm was sinus rhythm with average heart rate 60 bpm. Minimum heart rate was 42 bpm and maximum 95. SVT 31 events with longest event 11 beats at the fastest event rate of 126 bpm. 1 pause event 2108 MS. Lexiscan Cardiolite stress test performed in the office on 02/12/2019 was negative stress test by EKG criteria. Normal myocardial perfusion and function. 08/01 Patient is seen today in follow-up in the emergency center. She denies any new concerns. Nursing denies any new concerns. Telemetry strips have been reviewed and no sign of pauses or significant arrhythmia. Blood pressure 153/86, heart rate 94, pulse ox 95% on 2 L nasal cannula. Troponins are negative x 3 draws. TSH 1.21. No reversible causes identified for bradycardia. 08/02 Yesterday, event monitor was attempted but patient was still confused that it was aborted. Patient is seen today in follow-up. She has had no significant pauses since the time of admission. Discussed possible RV wireless pacemaker with Dr. Marr. This will need to be reevaluated after the weekend. Patient remains confused. Blood pressure 117/51, heart rate 58, pulse ox 100% on 3 L nasal cannula. Repeat blood work reveals WBC 6, hemoglobin 11.2, creatinine 0.78. Potassium 4.2. Physical examination: Gen: This is an 88-year-old female in no acute distress VS: reviewed no reversible HEENT: Head is atraumatic, normocephalic. Pupils equal, round. Sclerae is anicteric. NECK: Supple. No JVD. LUNGS: Clear to auscultation. No wheezes or rhonchi. No intercostal retractions. HEART: Regular rate and rhythm. No murmur. ABDOMEN: Soft No tenderness. EXTREMITIES: No pedal edema. No calf tenderness. NEUROLOGICAL: Patient is awake, alert. Assessment: Bradycardia with junctional rhythm, signs of sick sinus syndrome rule out reversible causes Severe hypokalemia status post replacement Paroxysmal atrial fibrillation currently in sinus rhythm Hypertension Dyslipidemia Plan: Continue patient's home cardiac medications Avoid AV blocking agents Further recommendations as patient progresses. Nurse practitioner note has been reviewed, I agree with documented findings and plan of care. Patient was seen and examined. Objective - Vital Signs Vital signs: Vital Signs Temp 98 F 08/03/23 08:44 Pulse 58 L 08/03/23 08:44 Resp 17 08/03/23 08:44 BP 117/51 08/03/23 08:44 Pulse Ox 100 08/03/23 08:44 FiO2 Intake & Output 08/02/23 08/03/23 08/03/23 18:59 06:59 18:59 Output Total 1300 550 Balance -1300 -550 Weight 58 kg Output: Urine 1300 550 Uretheral (Jay) 1300 550 Other: Voiding Method Indwelling Catheter # Voids 1 - Labs CBC & Chem 7: 08/03/23 11:07 08/03/23 11:07 Labs: Abnormal Lab Results - Last 24 Hours (Table) 08/02/23 Range/Units 23:30 Ur Leukocyte Esterase Small H (Negative) Urine WBC 15 H (0-5) /hpf Urine Bacteria Rare H (None) /hpf Urine Mucus Rare H (None) /hpf
--- NOTE | 2023-08-03 21:45 | EEG ---
ELECTROENCEPHALOGRAM REPORT EEG TYPE: A routine 21-channel EEG with video using the 10/20 electrode placement system. RELEVANT MEDICATIONS: Per the timber management technician, it is reported the patient is on, 1. Xanax. 2. Seroquel. 3. Cymbalta. 4. Ultram. DESCRIPTION: Wakefulness and drowsiness are obtained. During awake state, the posterior-dominant rhythm consists of [id number] voltage of 6 to 7 hertz activity that is well modulated, well sustained. There is no physiological stage 2 sleep architecture. There is no focal slowing. Interictal and ictal is none. ACTIVATION PROCEDURE: Photic stimulation did not evoke a posterior driving response. There is no abnormality during the photic stimulation. Hyperventilation is not performed. CLINICAL INTERPRETATION: This is an abnormal routine EEG. The background slowing is suggestive of mild encephalopathy. There is no focal slowing, epileptiform discharge, or seizure on the EEG. Clinical correlation is recommended. YULY / YESSENIA: [id number] /
--- NOTE | 2023-08-04 09:11 | P.PN ---
Subjective Progress Note Date: 08/03/23 HISTORY OF PRESENT ILLNESS: 88-year-old one of my office patient for many years active medical history of COPD, CHF, A-fib, memory loss, recurrent UTI, recurrent URI and pneumonia was hospitalized last time in May 13 for bilateral pneumonia and significant shortness of breath, patient has been in the emergency department a few times for multiple complaints but not hospitalized did not need any extra help. She was brought to the emergency department by family very late last night for evaluation of severe generalized weakness and fatigue denies any focal symptoms overall with her dementia make it quite bit hard to understand the overall complain that she had generalized weakness and fatigue low-grade temperature nausea lack of appetite and worsening constitutional symptoms. As she is waiting her laboratory value came back quite bit abnormal initially with severe hypokalemia, hyper chloremia, hypocalcemia and low-grade anemia with hemoglobin of 9.8 which is slightly bit different from before kidney function is no change and has been good repeat lab shows all those electrolyte abnormality were Normal may be the value of her lab was quite better at the time. While she been evaluated her throat. Monitor showed severe bradycardia with pulse rate running in the 30s and EKG showed slight irregularity but not as a slow. Patient will be hospitalized will be kept on heart monitor and evaluated by cardiology for possibility of potential of pacemaker placement. 08/02/2023: Review and with the strip with cardiology last 24 hours did not show any further pauses or any major arrhythmia required pacemaker apparently cardiology final decision is to have patient do event monitor or loop recorder monitor or long-term heart monitor might be beneficial to watch and intervene when needed to put a pacemaker in I still believe based on patient history and watch her for the last 2 years with severe bradycardia with a minimum change that she is going to need pacemaker at some point is just happened to be without testing not confirmative enough this time that it required. With the significant altered mental status worsening confusion along with severe fatigue and tiredness which is all to be expected with patient's current condition and severe bradycardia along with recovering from TIA and advanced dementia. Not clear what family expect specially if patient does not require pacemaker at this point try to contact the son today not successful left a message and we should ask social sciences department chair to help with discharge planning because patient opted now almost bedridden required more help to get out of bed not ambulating and I am not quite sure how much SNF for rehab is going to add to her current condition if family cannot manage was going on currently patient probably require long-term care more than rehab. But still can request physical or recreational therapy for help. Second factor at this point which is UTI culture and UA has not been completed sadly will continue to watch for UA for possible urinary tract infection patient at this point still not on any antibiotics currently without significant confusion and worsening dementia and encephalopathy as well. After clearing any abnormality with the blood test she had early with her last blood test on 08/01/2023 continue to be quite normal including her thyroid test only thing still missing the UA. Her chest x-ray failed to show any infection at this point patient last event was mostly consistent with COPD exacerbation and pneumonia. 08/03/2023: No major arrhythmia to the night but with patient's current condition patient will benefit from having a pacemaker which has been waiting on 4 over 1 to 2 years to observation finding significant bradycardia, significant severe tiredness and fatigue and conquer with the idea of having many episodes of bradycardia and pauses had happened in the ER first 24 hours of admission, Talk with cardiology when attempt to do event monitor patient is extremely confused cannot do it. They can talk to cardiology about the safety of the patient needing a pacemaker specially after her current event and her age with the possibility of fall and fractured hip if this is not done on time will become extremely high. Cardiology will contact electrophysiology for possible RV wireless pacemaker with Dr. Jolley which apparently was negative happened to at least Sunday in the meanwhile continue treating patient watching her more carefully until early next week. Her generalized weakness and fatigue patient will be doing some physical therapy currently still bedridden extremely confused require help with every thing including feeding, bathing, regular daily activity. Attempted contacting family was not successful. REVIEW OF SYSTEMS: CONSTITUTIONAL: Well-developed elderly in mild respiratory distress. EYES: No icterus sclerae, no conjunctivitis. EARS, NOSE, MOUTH, THROAT, and FACE: No sore throat, lymphadenopathy, carotid bruits or deformity. RESPIRATORY: Positive shortness of breath cough and wheezes. CARDIOVASCULAR: Positive PND orthopnea palpitation. GASTROINTESTINAL: Abdominal discomfort with nausea no vomiting diarrhea constipation no GI bleed no distention or masses. GENITOURINARY: recurrent UTI with mild incontinence. INTEGUMENT/BREAST: Negative for any muscular injury with mild osteoarthritis.. HEMATOLOGIC/LYMPHATIC: Negative for bleed or purpura. MUSCULOSKELTAL: Generalized muscle and joint pain. NEURLOGICAL: No LOC, Sz or syncope, blurred vision dizziness or abnormality.. Slight memory loss. BEHAVIORAL/PSYCH: Negative. ENDOCRINE: Negative. PHYSICAL EXAMINATION: General Appearance: Alert, elderly looks in no distress. Neck HEENT: Supple, no lymphadenopathy, no thyroid enlargement, no carotid bruits. Slight congestion and swelling the back of her throat. Lungs: Clear to auscultation with crackles in the bases positive rhonchi and slight increased wheezes on the right side. Chest Wall: Decreased expansion with deep inspiration no tenderness and no deformity was found on exam, no costochondral pain or discomfort. Heart: Regular rate and rhythm, S1, S2 normal, no murmur, rub or gallop. Back: Symmetric, no curvature, ROM normal, no CVA tenderness. Abdomen: Soft, non-tender, bowel sounds active all four quadrants, no masses, no organomegaly. Extremities: Trace edema decreased pulse dorsalis pedis bilaterally with mild arthritis and slight discoloration from the knee down. Pulses: 2+ and symmetric. Skin: Skin color, texture, tugor normal, no rashes or lesions. Neurologic: Alert oriented with slight confusion cranial nerves II through XII intact, positive generalized weakness still have slight weakness on the left side compared to the right side. ASSESSMENT AND PLAN: _Severe bradycardia with history of A-fib with RVR the patient is not on any beta-noam or calcium channel noam, on her current heart monitor in the floor patient did not have any severe episodes of pauses likely when she had in the emergency room but my fear then patient is extremely symptomatic with her severe bradycardia and has been coming for the last few years attend this time with cardiology to do event monitor was not successful I spoke with cardiology patient's safety at this point having to do the pacemaker will be a reason not to wait any longer because the possibility of fall and fracture hip or injury become a lot greater if it is not done. There is few process happening in the emergency department one of them observed by me for over 3 seconds at the time and was happening more often without any major electrolyte abnormality or hypothyroidism can explain her current event. Patient does have A-fib to the severe bradycardia makes it sick sinus syndrome will require pacemaker for treatment cardiology trying into finding out if possibly to do the RV wireless pacemaker. _Severe generalized weakness and fatigue caused by severe bradycardia with a overall general condition including memory loss, age. Possibly sick sinus syndrome. _Low-grade iron deficiency anemia: Significantly decreased from before specially in her age and being on anticoagulation the possibility of gastrointestinal bleed is always high repeat CBC, continue proton pump inhibitor and 0 to do Hemoccult watch for any active GI bleed. _Paroxysmal atrial fibrillation: She is not in any suppressive agent pulse rates under control and sound but it is very slow to continue anticoagulation. _History of CVA: Had close significant problem with memory loss and cardiac change with abnormal balance gait tiredness fatigue and mobility problem. Which patient will continue to require help. _Hypertension: Blood pressure is well-controlled currently on amlodipine 10 mg a day, and continue isosorbide 30 mg a day still on diuretics. _History of seizure disorders: No active seizure activity at this point doing well stable has been off antiseizure. _COPD: No exacerbation at this point continue albuterol/ipratropium and Symbicort. 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 _Diastolic congestive heart failure: Remain on furosemide, Was supposed to be on angiotensin receptor product. _Previous history of DVT: Still on anticoagulation with Eliquis. _Hyperlipidemia: Will continue atorvastatin 10 mg a day. CODE STATUS: Full code. Discussion the patient is currently not safe to have any further episodes of bradycardia and pauses might be leading into hip fracture or injury can be deadly at some point. Cardiology looking into the RV wireless pacemaker with Dr. Fischer. Objective - Vital Signs Vital signs: Vital Signs Temp 97.6 F 08/03/23 03:59 Pulse 50 L 08/03/23 03:59 Resp 16 08/03/23 03:59 BP 134/69 08/03/23 03:59 Pulse Ox 98 08/03/23 03:59 FiO2 Intake & Output 08/02/23 08/02/23 08/03/23 06:59 18:59 06:59 Output Total 1300 550 Balance -1300 -550 Weight 58 kg Output: Urine 1300 550 Uretheral (Jay) 1300 550 Other: Voiding Method Indwelling Catheter - Labs CBC & Chem 7: 08/03/23 11:07 08/03/23 11:07 Labs: Abnormal Lab Results - Last 24 Hours (Table) 08/02/23 Range/Units 23:30 Ur Leukocyte Esterase Small H (Negative) Urine WBC 15 H (0-5) /hpf Urine Bacteria Rare H (None) /hpf Urine Mucus Rare H (None) /hpf
--- NOTE | 2023-08-04 09:42 | P.PN ---
Subjective Progress Note Date: 08/04/23 Principal diagnosis: Paroxysmal atrial fibrillation The patient is an 88-year-old female patient with a past medical history significant for paroxysmal atrial fibrillation and sick sinus syndrome who was admitted to the hospital with presyncope and intermittent episodes of iraj cardia concerning for the etiology of syncope. August 04, 2023 The patient was seen and evaluated this morning. She is stable hemodynamically. She is on oral anticoagulation. I spoke with Dr. Marr yesterday and the plan is to pursue permanent pacemaker implantation sometimes next week. At the same time the patient might be able to be discharged home on event monitor and have the procedure done as an outpatient. The examination is remarkable for stable vital signs with regular rate and rhythm and systolic murmur at the right upper sternal border with clear breathing sounds bilaterally and no edema was noted Assessment Evidence of sick sinus syndrome Paroxysmal atrial fibrillation Presyncope Multiple comorbid conditions Plan Avoid any AV angela noam agents Consider permanent pacemaker inpatient or an outpatient Follow-up with the patient Objective - Vital Signs Vital signs: Vital Signs Temp 97.9 F 08/04/23 08:27 Pulse 65 08/04/23 08:27 Resp 17 08/04/23 08:27 BP 123/60 08/04/23 08:27 Pulse Ox 95 08/04/23 08:27 FiO2 Intake & Output 08/03/23 08/04/23 08/04/23 18:59 06:59 18:59 Output Total 400 450 Balance -400 -450 Output: Urine 400 450 Other: Voiding Method Indwelling Catheter Indwelling Catheter Indwelling Catheter - Labs CBC & Chem 7: 08/03/23 11:07 08/03/23 11:07 Labs: Abnormal Lab Results - Last 24 Hours (Table) 08/03/23 08/03/23 Range/Units 11:07 11:07 Hgb 11.2 L (11.4-16.0) gm/dL MCHC 29.6 L (31.0-37.0) g/dL RDW 17.2 H (11.5-15.5) % Carbon Dioxide 33 H (22-30) mmol/L Glucose 109 H (74-99) mg/dL Total Protein 5.8 L (6.3-8.2) g/dL Albumin 3.4 L (3.5-5.0) g/dL Microbiology - Last 24 Hours (Table) 08/02/23 23:30 Urine Culture - Final Urine,Voided Aerococcus urinae
--- NOTE | 2023-08-04 20:50 | P.PN ---
Subjective Progress Note Date: 08/04/23 Assumed care today of this patient from their primary physician. Patient is evaluated on the cardiac stepdown unit. No acute complaints. Unable to tolerate event monitor as patient has moments of confusion. Cardiology following and planning for permanent pacemaker while inpatient sunday or sunday. Urine c ulture shows aerococcus urinae; patient is asymptomatic and is not having any dysuria urgency or frequency. Patient is not afebrile and white blood cell count is normal. Will continue to monitor off antibiotics at this time. Her UA was not significantly abnormal. Had an EEG showing no seizure like activity. Review of Systems Constitutional: Denied any fatigue denied any fever. Cardio vascular: denied any chest pain, palpitations Gastrointestinal: denied any nausea, vomiting, diarrhea Pulmonary: Denied any shortness of breath cough Neurologic denied any new focal deficits All inpatient medications were reviewed and appropriate changes in these medications as dictated in the interval history and assessment and plan. PHYSICAL EXAMINATION: GENERAL: The patient is alert and oriented x2-3, not in any acute distress. Well developed, well nourished. HEENT: Pupils are round and equally reacting to light. EOMI. No scleral icterus. No conjunctival pallor. Normocephalic, atraumatic. No pharyngeal erythema. No thyromegaly. CARDIOVASCULAR: S1 and S2 present. No murmurs, rubs, or gallops. PULMONARY: Chest is clear to auscultation, no wheezing or crackles. ABDOMEN: Soft, nontender, nondistended, normoactive bowel sounds. No palpable organomegaly. MUSCULOSKELETAL: No joint swelling or deformity. EXTREMITIES: No cyanosis, clubbing, or pedal edema. NEUROLOGICAL: Gross neurological examination did not reveal any focal deficits. SKIN: No rashes. Assessment and Plan _Severe bradycardia with history of A-fib with RVR the patient is not on any beta-noam or calcium channel noam. Concern for possible underlying sick sinus syndrome, primary has spoken with cardiology and patient is being considered for a permanent pacemaker on Sunday or sunday. Continue cardiac telemetry. _Severe generalized weakness and fatigue caused by severe bradycardia with a overall general condition including memory loss, age. Possibly sick sinus syndrome. PT/OT following. _Low-grade iron deficiency anemia: Significantly decreased from before specially in her age and being on anticoagulation the possibility of gastrointestinal bleed is always high repeat CBC, continue proton pump inhibitor and 0 to do Hemoccult watch for any active GI bleed. -Asymptomatic bacteriruea will require no antibiotics. _Paroxysmal atrial fibrillation: She is not in any suppressive agent pulse rates under control and sound but it is very slow to continue anticoagulation. _History of CVA: Problem with memory loss and cardiac change with abnormal balance gait tiredness fatigue and mobility problem. Which patient will continue to require help. _Hypertension: Blood pressure is well-controlled currently on amlodipine 10 mg a day, and continue isosorbide 30 mg a day still on diuretics. _History of seizure disorders: No active seizure activity at this point doing well stable has been off antiseizure. _COPD: No exacerbation at this point continue albuterol/ipratropium and Symbicort. 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 _Diastolic congestive heart failure: Remain on furosemide, Was supposed to be on angiotensin receptor product which is held due to the bradycardia. _Previous history of DVT: Still on anticoagulation with Eliquis. _Hyperlipidemia: Will continue atorvastatin 10 mg a day. CODE STATUS: Full code. Plan PT/OT consultation. Patient being evaluated by permanent pacemaker. Patient unable to have event monitor placed due to confusion. Repeat blood work. The impression and plan of care has been dictated by Aundrea Pompa, Nurse Practitioner as directed. Dr. Vaibhav MD I have performed a history and physical examination and medical decision making of this patient, discussed the same with the dictator, and agree with the dictators assessment and plan as written, documented as a scribe. Based on total visit time, I have performed more than 50% of this visit. Objective - Vital Signs Vital signs: Vital Signs Temp 97.4 F L 08/04/23 15:00 Pulse 56 L 08/04/23 19:58 Resp 17 08/04/23 19:58 BP 125/59 08/04/23 19:58 Pulse Ox 94 L 08/04/23 19:58 FiO2 Intake & Output 08/04/23 08/04/23 08/05/23 06:59 18:59 06:59 Intake Total 520 Output Total 450 300 Balance -450 220 Intake: Oral 520 Output: Urine 450 300 Other: Voiding Method Indwelling Catheter Indwelling Catheter Indwelling Catheter - Labs CBC & Chem 7: 08/03/23 11:07 08/03/23 11:07 Labs: Microbiology - Last 24 Hours (Table) 08/02/23 23:30 Urine Culture - Final Urine,Voided Aerococcus urinae Assessment and Plan Time with Patient: Less than 30
[2023-08-05 07:43] LABS: Anisocytosis Slight; Basophils # (A) 0.1 k/uL (0-0.2); Basophils % (A) 1 %; Eosinophils # (A) 0.2 k/uL (0-0.7); Eosinophils % (A) 4 %; HCT 32.3 % (34.0-46.0); Hypochromasia Marked; Lymphocytes # (A) 1.8 k/uL (1.0-4.8); Lymphocytes % (A) 32 %; MCH 28.6 pg (25.0-35.0); MCHC 31.1 g/dL (31.0-37.0); MCV 92.1 fL (80.0-100.0); Mean Platelet Volume 7.1; Monocytes # (A) 0.5 k/uL (0-1.0); Monocytes % (A) 8 %; Neutrophils % (A) 52 %; Platelet Count 324 k/uL (150-450); RBC 3.51 m/uL (3.80-5.40); WBC 5.8 k/uL (3.8-10.6)
[2023-08-05 07:55] LABS: African American GFR (CKD) >90 (>60 ml/min/1.73 sqM); Anion Gap 1 mmol/L; Blood Urea Nitrogen 14 mg/dL (7-17); Calcium 9.4 mg/dL (8.4-10.2); Carbon Dioxide 33 mmol/L (22-30); Chloride 103 mmol/L (98-107); Glucose 82 mg/dL (74-99); Non-African American GFR(CKD) 81 (>60 ml/min/1.73 sqM); Potassium 3.9 mmol/L (3.5-5.1); Sodium 137 mmol/L (137-145)
--- NOTE | 2023-08-05 09:54 | P.PN ---
Subjective Progress Note Date: 08/05/23 Principal diagnosis: Paroxysmal atrial fibrillation The patient is an 88-year-old female patient with a past medical history significant for paroxysmal atrial fibrillation and sick sinus syndrome who was admitted to the hospital with presyncope and intermittent episodes of iraj cardia concerning for the etiology of syncope. August 04, 2023 The patient was seen and evaluated this morning. She is stable hemodynamically. She is on oral anticoagulation. I spoke with Dr. Marr yesterday and the plan is to pursue permanent pacemaker implantation sometimes next week. At the same time the patient might be able to be discharged home on event monitor and have the procedure done as an outpatient. The examination is remarkable for stable vital signs with regular rate and rhythm and systolic murmur at the right upper sternal border with clear breathing sounds bilaterally and no edema was noted August 05, 2023 The patient was seen and evaluated this morning which she continues to have some change in mental status. Apparently there is some discussion with the son about the family not want a permanent pacemaker at this point. With that being said from a cardiovascular standpoint of view, the patient potentially can be discharged home. The examination is remarkable for stable vital signs with regular rhythm and diminished breathing sounds bilaterally. Assessment Evidence of sick sinus syndrome Paroxysmal atrial fibrillation Presyncope Multiple comorbid conditions Plan Avoid any AV angela noam agents The family does not want permanent pacemaker at this point The patient potentially can be discharged Objective - Vital Signs Vital signs: Vital Signs Temp 98.6 F 08/05/23 08:30 Pulse 52 L 08/05/23 08:30 Resp 16 08/05/23 08:30 BP 104/55 08/05/23 08:30 Pulse Ox 98 08/05/23 08:30 FiO2 Intake & Output 08/04/23 08/05/23 08/05/23 18:59 06:59 18:59 Intake Total 520 10 128 Output Total 300 250 Balance 220 -240 128 Intake: IV 10 10 Invasive Line 2 10 10 Oral 520 118 Output: Urine 300 250 Other: Voiding Method Indwelling Catheter Indwelling Catheter Indwelling Catheter - Labs CBC & Chem 7: 08/05/23 07:18 08/05/23 07:18 Labs: Abnormal Lab Results - Last 24 Hours (Table) 08/05/23 08/05/23 Range/Units 07:18 07:18 RBC 3.51 L (3.80-5.40) m/uL Hgb 10.0 L (11.4-16.0) gm/dL Hct 32.3 L (34.0-46.0) % RDW 17.0 H (11.5-15.5) % Carbon Dioxide 33 H (22-30) mmol/L Microbiology - Last 24 Hours (Table) 08/02/23 23:30 Urine Culture - Final Urine,Voided Aerococcus urinae
--- NOTE | 2023-08-05 19:08 | P.PN ---
Subjective Progress Note Date: 08/05/23 Assumed care today of this patient from their primary physician. Patient is evaluated on the cardiac stepdown unit. No acute complaints. Unable to tolerate event monitor as patient has moments of confusion. Cardiology following and planning for permanent pacemaker while inpatient sunday or sunday. Urine c ulture shows aerococcus urinae; patient is asymptomatic and is not having any dysuria urgency or frequency. Patient is not afebrile and white blood cell count is normal. Will continue to monitor off antibiotics at this time. Her UA was not significantly abnormal. Had an EEG showing no seizure like activity. 08/05/2023 Patient evaluated today resting in bed. Having improved mentation. Cardiology has re-evaluated this patient and upon follow up with family they have opted to not undergo pacemaker implantation. Blood work today shows white blood cell count of 5.8, hgb 10.0, sodium 137, potassium 3.9, BUN 14, creatinine 0.61. Review of Systems Constitutional: Denied any fatigue denied any fever. Cardio vascular: denied any chest pain, palpitations Gastrointestinal: denied any nausea, vomiting, diarrhea Pulmonary: Denied any shortness of breath cough Neurologic denied any new focal deficits All inpatient medications were reviewed and appropriate changes in these medications as dictated in the interval history and assessment and plan. PHYSICAL EXAMINATION: GENERAL: The patient is alert and oriented x2-3, not in any acute distress. Well developed, well nourished. HEENT: Pupils are round and equally reacting to light. EOMI. No scleral icterus. No conjunctival pallor. Normocephalic, atraumatic. No pharyngeal erythema. No thyromegaly. CARDIOVASCULAR: S1 and S2 present. No murmurs, rubs, or gallops. PULMONARY: Chest is clear to auscultation, no wheezing or crackles. ABDOMEN: Soft, nontender, nondistended, normoactive bowel sounds. No palpable organomegaly. MUSCULOSKELETAL: No joint swelling or deformity. EXTREMITIES: No cyanosis, clubbing, or pedal edema. NEUROLOGICAL: Gross neurological examination did not reveal any focal deficits. SKIN: No rashes. Assessment and Plan _Severe bradycardia with history of A-fib with RVR the patient is not on any beta-noam or calcium channel noam. Concern for possible underlying sick sinus syndrome, primary has spoken with cardiology and patient is being considered for a permanent pacemaker on Sunday or sunday. Continue cardiac telemetry. _Severe generalized weakness and fatigue caused by severe bradycardia with a overall general condition including memory loss, age. Possibly sick sinus syndrome. PT/OT following. _Low-grade iron deficiency anemia: Significantly decreased from before specially in her age and being on anticoagulation the possibility of gastrointestinal bleed is always high repeat CBC, continue proton pump inhibitor and 0 to do Hemoccult watch for any active GI bleed. -Asymptomatic bacteriruea will require no antibiotics. _Paroxysmal atrial fibrillation: She is not in any suppressive agent pulse rates under control and sound but it is very slow to continue anticoagulation. _History of CVA: Problem with memory loss and cardiac change with abnormal balance gait tiredness fatigue and mobility problem. Which patient will continue to require help. _Hypertension: Blood pressure is well-controlled currently on amlodipine 10 mg a day, and continue isosorbide 30 mg a day still on diuretics. _History of seizure disorders: No active seizure activity at this point doing well stable has been off antiseizure. _COPD: No exacerbation at this point continue albuterol/ipratropium and S ymbicort. 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 _Diastolic congestive heart failure: Remain on furosemide, Was supposed to be on angiotensin receptor product which is held due to the bradycardia. _Previous history of DVT: Still on anticoagulation with Eliquis. _Hyperlipidemia: Will continue atorvastatin 10 mg a day. CODE STATUS: Full code. Plan PT/OT consultation. Patient unable to have event monitor placed due to confusion. Patient was evaluated for permanent pacemaker and family has opted against it at this time. Discharge planning on Sunday. The impression and plan of care has been dictated by Aundrea Pompa Nurse Practitioner as directed. Dr. Vaibhav MD I have performed a history and physical examination and medical decision making of this patient, discussed the same with the dictator, and agree with the dictators assessment and plan as written, documented as a scribe. Based on total visit time, I have performed more than 50% of this visit. Objective - Vital Signs Vital signs: Vital Signs Temp 97.7 F 08/05/23 17:06 Pulse 55 L 08/05/23 17:06 Resp 17 08/05/23 17:06 BP 107/63 08/05/23 17:06 Pulse Ox 95 08/05/23 17:06 FiO2 Intake & Output 08/04/23 08/05/23 08/05/23 18:59 06:59 18:59 Intake Total 520 10 728 Output Total 300 250 500 Balance 220 -240 228 Intake: IV 10 10 Invasive Line 2 10 10 Oral 520 718 Output: Urine 300 250 500 Other: Voiding Method Indwelling Catheter Indwelling Catheter Indwelling Catheter - Labs CBC & Chem 7: 08/05/23 07:18 08/05/23 07:18 Labs: Abnormal Lab Results - Last 24 Hours (Table) 08/05/23 08/05/23 Range/Units 07:18 07:18 RBC 3.51 L (3.80-5.40) m/uL Hgb 10.0 L (11.4-16.0) gm/dL Hct 32.3 L (34.0-46.0) % RDW 17.0 H (11.5-15.5) % Carbon Dioxide 33 H (22-30) mmol/L Assessment and Plan Time with Patient: Less than 30
--- NOTE | 2023-08-06 08:09 | P.DS ---
Providers Date of admission: 08/01/23 05:33 Attending physician: Tacos Saha Consults: 08/01/23 05:32 Consult Physician Routine Consulting Provider: [facility] Consult Reason/Comments: bradycardia Do you want consulting provider notified?: Yes, Notify in am Primary care physician: Tacos Saha [facility] Course: HISTORY OF PRESENT ILLNESS: 88-year-old one of my office patient for many years active medical history of COPD, CHF, A-fib, memory loss, recurrent UTI, recurrent URI and pneumonia was hospitalized last time in May 13 for bilateral pneumonia and significant shortness of breath, patient has been in the emergency department a few times for multiple complaints but not hospitalized did not need any extra help. She was brought to the emergency department by family very late last night for evaluation of severe generalized weakness and fatigue denies any focal symptoms overall with her dementia make it quite bit hard to understand the overall c omplain that she had generalized weakness and fatigue low-grade temperature nausea lack of appetite and worsening constitutional symptoms. As she is waiting her laboratory value came back quite bit abnormal initially with severe hypokalemia, hyper chloremia, hypocalcemia and low-grade anemia with hemoglobin of 9.8 which is slightly bit different from before kidney function is no change and has been good repeat lab shows all those electrolyte abnormality were Normal may be the value of her lab was quite better at the time. While she been evaluated her throat. Monitor showed severe bradycardia with pulse rate running in the 30s and EKG showed slight irregularity but not as a slow. Patient will be hospitalized will be kept on heart monitor and evaluated by cardiology for possibility of potential of pacemaker placement. 08/02/2023: Review and with the strip with cardiology last 24 hours did not show any further pauses or any major arrhythmia required pacemaker apparently cardiology final decision is to have patient do event monitor or loop recorder monitor or long-term heart monitor might be beneficial to watch and intervene when needed to put a pacemaker in I still believe based on patient history and watch her for the last 2 years with severe bradycardia with a minimum change that she is going to need pacemaker at some point is just happened to be without testing not confirmative enough this time that it required. With the significant altered mental status worsening confusion along with severe fatigue and tiredness which is all to be expected with patient's current condition and severe bradycardia along with recovering from TIA and advanced dementia. Not clear what family expect specially if patient does not require pacemaker at this point try to contact the son today not successful left a message and we should ask social contact worker to help with discharge planning because patient opted now almost bedridden required more help to get out of bed not ambulating and I am not quite sure how much SNF for rehab is going to add to her current condition if family cannot manage was going on currently patient probably require long-term care more than rehab. But still can request physical or recreational therapy for help. Second factor at this point which is UTI culture and UA has not been completed sadly will continue to watch for UA for possible urinary tract infection patient at this point still not on any antibiotics currently without significant confusion and worsening dementia and encephalopathy as well. After clearing any abnormality with the blood test she had early with her last blood test on 08/01/2023 continue to be quite normal including her thyroid test only thing still missing the UA. Her chest x-ray failed to show any infection at this point patient last event was mostly consistent with COPD exacerbation and pneumonia. 08/03/2023: No major arrhythmia to the night but with patient's current condition patient will benefit from having a pacemaker which has been waiting on 4 over 1 to 2 years to observation finding significant bradycardia, significant severe tiredness and fatigue and conquer with the idea of having many episodes of bradycardia and pauses had happened in the ER first 24 hours of admission, Talk with cardiology when attempt to do event monitor patient is extremely confused cannot do it. They can talk to cardiology about the safety of the patient needing a pacemaker specially after her current event and her age with the possibility of fall and fractured hip if this is not done on time will become extremely high. Cardiology will contact electrophysiology for possible RV wireless pacemaker with Dr. Jolley which apparently was negative happened to at least Sunday in the meanwhile continue treating patient watching her more carefully until early next week. Her generalized weakness and fatigue patient will be doing some physical therapy currently still bedridden extremely confused require help with every thing including feeding, bathing, regular daily activity. Attempted contacting family was not successful. 08/06/2023: Through the weekend patient had improved mentally evaluated by cardiology again and the idea of wireless pacemaker implantation brought to the family that being apparently the family are disagreeable for pacemaker placement.The meanwhile the rest of her workup including low-grade anemia, no problem with UTI, thyroid test is negative no electrolyte imbalance can explain any other abnormality. Will continue PT OT look like family wants to take her home with home care which will be arranged for patient and family to have. If no pacemaker needed at this point hopefully patient be able to be discharged today on 08/06/2023. REVIEW OF SYSTEMS: CONSTITUTIONAL: Well-developed elderly in mild respiratory distress. EYES: No icterus sclerae, no conjunctivitis. EARS, NOSE, MOUTH, THROAT, and FACE: No sore throat, lymphadenopathy, carotid bruits or deformity. RESPIRATORY: Positive shortness of breath cough and wheezes. CARDIOVASCULAR: Positive PND orthopnea palpitation. GASTROINTESTINAL: Abdominal discomfort with nausea no vomiting diarrhea constipation no GI bleed no distention or masses. GENITOURINARY: recurrent UTI with mild incontinence. INTEGUMENT/BREAST: Negative for any muscular injury with mild osteoarthritis.. HEMATOLOGIC/LYMPHATIC: Negative for bleed or purpura. MUSCULOSKELTAL: Generalized muscle and joint pain. NEURLOGICAL: No LOC, Sz or syncope, blurred vision dizziness or abnormality.. Slight memory loss. BEHAVIORAL/PSYCH: Negative. ENDOCRINE: Negative. PHYSICAL EXAMINATION: General Appearance: Alert, elderly looks in no distress. Neck HEENT: Supple, no lymphadenopathy, no thyroid enlargement, no carotid bruits. Slight congestion and swelling the back of her throat. Lungs: Clear to auscultation with crackles in the bases positive rhonchi and slight increased wheezes on the right side. Chest Wall: Decreased expansion with deep inspiration no tenderness and no deformity was found on exam, no costochondral pain or discomfort. Heart: Regular rate and rhythm, S1, S2 normal, no murmur, rub or gallop. Back: Symmetric, no curvature, ROM normal, no CVA tenderness. Abdomen: Soft, non-tender, bowel sounds active all four quadrants, no masses, no organomegaly. Extremities: Trace edema decreased pulse dorsalis pedis bilaterally with mild arthritis and slight discoloration from the knee down. Pulses: 2+ and symmetric. Skin: Skin color, texture, tugor normal, no rashes or lesions. Neurologic: Alert oriented with slight confusion cranial nerves II through XII intact, positive generalized weakness still have slight weakness on the left side compared to the right side. ASSESSMENT AND PLAN: _Severe bradycardia with history of A-fib with RVR the patient is not on any beta-noam or calcium channel noam, had many episodes of pauses/is in the hospital could not get hold of family when I left on Sunday for the weekend patient family were not back with us cardiology were planning to do wireless RV lead pacemaker apparently talk between cardiology and family on the weekend that family do not want to have a pacemaker. But explained to the family that the tiredness fatigue and generalized weakness are complaining of his bradycardia intervention and still can be monitored as an outpatient with either loop recorder monitor or event monitor if agreeable but bottom line she still need a pacemaker if continues to be symptomatic. _Severe generalized weakness and fatigue caused by severe bradycardia with a overall general condition including memory loss, age. Possibly sick sinus syndrome. Might need pacemaker which family are disagreeable to it at this point. _Low-grade iron deficiency anemia: Significantly decreased from before specially in her age and being on anticoagulation the possibility of gastrointestinal bleed is always high repeat CBC, continue proton pump inhibitor and 0 to do Hemoccult watch for any active GI bleed. _Paroxysmal atrial fibrillation: She is not in any suppressive agent pulse rates under control and sound but it is very slow to continue anticoagulation. _History of CVA: Had close significant problem with memory loss and cardiac change with abnormal balance gait tiredness fatigue and mobility problem. Which patient will continue to require help. _Hypertension: Blood pressure is well-controlled currently on amlodipine 10 mg a day, and continue isosorbide 30 mg a day still on diuretics. _History of seizure disorders: No active seizure activity at this point doing well stable has been off antiseizure. _COPD: No exacerbation at this point continue albuterol/ipratropium and Symbicort. 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 _Diastolic congestive heart failure: Remain on furosemide, Was supposed to be on angiotensin receptor product. _Previous history of DVT: Still on anticoagulation with Eliquis. _Hyperlipidemia: Will continue atorvastatin 10 mg a day. CODE STATUS: Full code. Discussion apparently RV wireless pacemaker was refused by family and they are agreeable to take her home with home care Help. Hospital course: Patient Presented to the emergency department on 08/01/2023 because of severe generalized fatigue and weakness and tiredness with mild altered mental status, she is known to have memory loss with her overall condition found to have severe bradycardia and few episodes of close for skipped beat up to 2 and half to 3 seconds sometimes found. Overall workup for severe bradycardia was done with no abnormality consistent with electrolyte imbalance or hypothyroidism. Patient was seen and evaluated by cardiology and try initially to do discharge with event monitor patient was not able to understand how to do it then came with the idea of RV wireless pacemaker implantation as a neck step. Continue to watch patient on the weekend finally get hold of family apparently had refused to do pacemaker placement at this point. No other finding or abnormality require any help retention family apparently are willing to take patient home with home care and watch for any further symptoms with the change her mind and continue to be symptomatic with the bradycardia as an outpatient in our with her follow-up we can always change their mind on having a pacemaker done as an outpatient. Patient be discharged home today hopefully. Time spent on patient discharge was over 31 minutes. Patient Condition at Discharge: Stable Plan - Discharge Summary Discharge Rx Participant: No New Discharge Prescriptions: Continue Pantoprazole [Protonix] 40 mg PO DAILY DULoxetine HCL [Cymbalta] 30 mg PO DAILY Albuterol Inhaler [Ventolin Hfa Inhaler] 2 puff INHALATION RT-Q6H PRN PRN Reason: Shortness Of Breath Acetaminophen-Codeine 300-30mg [Tylenol w/codeine #3] 1 tab PO BID PRN #4 tab PRN Reason: Pain Clopidogrel [Plavix] 75 mg PO DAILY 30 Days #30 tab traMADol HCL 50 mg PO BID PRN PRN Reason: Pain Melatonin 1 mg PO HS Aspirin EC [Ecotrin Low Dose] 81 mg PO DAILY Isosorbide Mononitrate ER [Imdur] 30 mg PO DAILY Furosemide [Lasix] 20 mg PO DAILY Denosumab [Prolia] 60 mg SQ Q180D Apixaban [Eliquis] 2.5 mg PO BID Cholecalciferol [Vitamin D3 (25 Mcg = 1000 Iu)] 25 mcg PO DAILY Ascorbic Acid [Vitamin C] 500 mg PO DAILY Atorvastatin [Lipitor] 10 mg PO HS Ferrous Sulfate [Iron (65 MG Elemental)] 325 mg PO DAILY ALPRAZolam [Xanax] 0.25 mg PO TID PRN #60 tab PRN Reason: Agitation Or Acute Anxiety QUEtiapine [SEROquel] 25 mg PO HS Cider Vinegar [Apple Cider Vinegar] 600 mg PO DAILY Changed amLODIPine [Norvasc] 5 mg PO DAILY #30 tab Discharge Medication List Pantoprazole [Protonix] 40 mg PO DAILY 04/11/18 [History] Albuterol Inhaler [Ventolin Hfa Inhaler] 2 puff INHALATION RT-Q6H PRN 04/29/22 [History] Apixaban [Eliquis] 2.5 mg PO BID 04/29/22 [History] DULoxetine HCL [Cymbalta] 30 mg PO DAILY 04/29/22 [History] Denosumab [Prolia] 60 mg SQ Q180D 04/29/22 [History] Furosemide [Lasix] 20 mg PO DAILY 04/29/22 [History] Isosorbide Mononitrate ER [Imdur] 30 mg PO DAILY 04/29/22 [History] Cholecalciferol [Vitamin D3 (25 Mcg = 1000 Iu)] 25 mcg PO DAILY 09/30/22 [History] Ascorbic Acid [Vitamin C] 500 mg PO DAILY 10/27/22 [History] Acetaminophen-Codeine 300-30mg [Tylenol w/codeine #3] 1 tab PO BID PRN #4 tab 12/28/22 [Rx] Clopidogrel [Plavix] 75 mg PO DAILY 30 Days #30 tab 12/28/22 [Rx] Atorvastatin [Lipitor] 10 mg PO HS 03/04/23 [History] Ferrous Sulfate [Iron (65 MG Elemental)] 325 mg PO DAILY 03/04/23 [History] ALPRAZolam [Xanax] 0.25 mg PO TID PRN #60 tab 05/17/23 [Rx] Aspirin EC [Ecotrin Low Dose] 81 mg PO DAILY 08/01/23 [History] Cider Vinegar [Apple Cider Vinegar] 600 mg PO DAILY 08/01/23 [History] Melatonin 1 mg PO HS 08/01/23 [History] QUEtiapine [SEROquel] 25 mg PO HS 08/01/23 [History] traMADol HCL 50 mg PO BID PRN 08/01/23 [History] amLODIPine [Norvasc] 5 mg PO DAILY #30 tab 08/06/23 [Rx] Follow up Appointment(s)/Referral(s): Karen Shepard,Home Care [NON-STAFF] - Tacos Saha MD [Primary Care Provider] - 1-2 days (Appt 08/09/2023 @ 11:30) Len Lott MD [STAFF PHYSICIAN] - 1 Week (August 14, 2023 8:30am) Discharge Disposition: HOME WITH HOME HEALTH SERVICES
[2023-08-06 14:31] VITALS: TEMP 98
[2023-08-06 18:00] VITALS: BP 122/64; PULSE 75; RESP 18
== END 2023-08-06 16:45 | disposition home health service (06) ==
LOC: EC 19:20 → 3SCARD 08-01 05:33
PROVIDERS: ADMIT Internal Medicine Geriatric Medicine; ATTEND Internal Medicine Geriatric Medicine
DX: R00.1 Bradycardia, unspecified (principal); R53.1 Weakness; I48.0 Paroxysmal atrial fibrillation; I49.5 Sick sinus syndrome; R55 Syncope and collapse; E87.6 Hypokalemia; E78.5 Hyperlipidemia, unspecified; F41.9 Anxiety disorder, unspecified; D50.9 Iron deficiency anemia, unspecified; J44.9 Chronic obstructive pulmonary disease, unspecified; R53.83 Other fatigue; I25.10 Atherosclerotic heart disease of native coronary artery without angina pectoris; I11.0 Hypertensive heart disease with heart failure; I50.30 Unspecified diastolic (congestive) heart failure; I69.354 Hemiplegia and hemiparesis following cerebral infarction affecting left non-dominant side; Z86.718 Personal history of other venous thrombosis and embolism; Z87.891 Personal history of nicotine dependence; Z79.899 Other long term (current) drug therapy; Z79.01 Long term (current) use of anticoagulants; Z79.02 Long term (current) use of antithrombotics/antiplatelets; Z79.51 Long term (current) use of inhaled steroids; Z79.52 Long term (current) use of systemic steroids; Z79.82 Long term (current) use of aspirin
CPT/HCPCS: 99285; 36415 ×2; 94760; 95816; 93005; 97162; 80053 ×3; 80048; 84443; 83605; 83735; 84484 ×2; 85025 ×2; 85027; 85610; 85730; 81001; 87086; 71046; G0378 ×6; J0613

== ENCOUNTER 2023-09-05 15:27 | Emergency (ER) | payer MEDICARE, BC ==
--- NOTE | 2023-09-05 15:44 | ED ---
Recheck HPI - General Source: patient, family, RN notes reviewed Mode of arrival: EMS Limitations: no limitations <Yvette Purvis - Last Filed: 09/05/23 15:43> <Joan Sheets - Last Filed: 09/05/23 23:38> - General Chief Complaint: Recheck/Abnormal Lab/Rx Stated Complaint: AMS Time Seen by Provider: 09/05/23 15:43 - History of Present Illness Initial Comments: Quick note: 88-year-old female presented to the ER via EMS with a chief complaint of right arm pain. Patient states pain started yesterday. Family r eport she has extensive history of dementia and is unsafe as she currently lives alone. They are looking for placement at this time. Patient denies any other complaints. No known injuries to right upper extremity. (Yvette Purvis) 88-year-old female with history of dementia presenting via EMS for chief complaint of right arm pain. Patient states that the pain started yesterday. She denies any fall or other injury. She denies any other complaints, no chest pain, difficulty breathing, abdominal pain. I spoke with the patient's son alternates with his brother staying with the patient and helping take care of her. They state that she is able to get up and walk around without assistance. Her dementia has been somewhat worsening, she has called EMS a few times. They have made Dr. Saha aware, he states that he has started her on some new medication which has been helping with her confusion. He states that they are able to care for his mother he is just concerned about her repeatedly calling EMS. (Joan Sheets) - Related Data Home Medications Medication Instructions Recorded Confirmed Pantoprazole [Protonix] 40 mg PO DAILY 04/11/18 09/05/23 Albuterol Inhaler [Ventolin Hfa 2 puff INHALATION RT-Q6H PRN 04/29/22 09/05/23 Inhaler] Apixaban [Eliquis] 2.5 mg PO BID 04/29/22 09/05/23 DULoxetine HCL [Cymbalta] 30 mg PO DAILY 04/29/22 09/05/23 Denosumab [Prolia] 60 mg SQ Q180D 04/29/22 09/05/23 Furosemide [Lasix] 20 mg PO DAILY 04/29/22 09/05/23 Isosorbide Mononitrate ER [Imdur] 30 mg PO DAILY 04/29/22 09/05/23 Cholecalciferol [Vitamin D3 (25 25 mcg PO DAILY 09/30/22 09/05/23 Mcg = 1000 Iu)] Ascorbic Acid [Vitamin C] 500 mg PO DAILY 10/27/22 09/05/23 Atorvastatin [Lipitor] 10 mg PO HS 03/04/23 09/05/23 Ferrous Sulfate [Iron (65 MG 325 mg PO DAILY 03/04/23 09/05/23 Elemental)] Aspirin EC [Ecotrin Low Dose] 81 mg PO DAILY 08/01/23 09/05/23 Cider Vinegar [Apple Cider Vinegar] 600 mg PO DAILY 08/01/23 09/05/23 Melatonin 1 mg PO HS 08/01/23 09/05/23 QUEtiapine [SEROquel] 25 mg PO HS 08/01/23 09/05/23 Donepezil [Aricept] 5 mg PO HS 09/05/23 09/05/23 amLODIPine [Norvasc] 10 mg PO DAILY 09/05/23 09/05/23 Previous Rx's Medication Instructions Recorded Acetaminophen-Codeine 300-30mg 1 tab PO BID PRN #4 tab 12/28/22 [Tylenol w/codeine #3] Clopidogrel [Plavix] 75 mg PO DAILY 30 Days #30 tab 12/28/22 ALPRAZolam [Xanax] 0.25 mg PO TID PRN #60 tab 05/17/23 Allergies Allergy/AdvReac Type Severity Reaction Status Date / Time No Known Allergies Allergy Verified 09/05/23 20:11 Review of Systems ROS Other: All systems not noted in ROS Statement are negative. <Yvette Purvis - Last Filed: 09/05/23 15:43> ROS Other: All systems not noted in ROS Statement are negative. <Joan Sheets - Last Filed: 09/05/23 23:38> ROS Statement: Those systems with pertinent positive or pertinent negative responses have been documented in the HPI. 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 Past Psychological History: Anxiety Smoking Status: Former smoker Past Alcohol Use History: None Reported Past Drug Use History: None Reported - Past Family History Brother(s) Family Medical History: Cancer Sister(s) Family Medical History: Cancer Mother Additional Family Medical History / Comment(s): enlarged heart <Yvette Purvis - Last Filed: 09/05/23 15:43> General Exam Limitations: no limitations <Yvette Purvis - Last Filed: 09/05/23 15:43> Limitations: altered mental status (Dementia) General appearance: alert, in no apparent distress Head exam: Present: atraumatic, normocephalic Eye exam: Present: normal appearance, EOMI Neck exam: Present: normal inspection. Absent: meningismus Respiratory exam: Present: normal lung sounds bilaterally. Absent: respiratory distress, wheezes, rales, rhonchi, stridor Cardiovascular Exam: Present: regular rate, normal rhythm, normal heart sounds. Absent: systolic murmur, diastolic murmur, rubs, gallop, clicks Right Shoulder Exam: Present: normal inspection. Absent: full ROM, tenderness Back exam: Present: normal inspection Neurological exam: Present: alert, altered (Dementia) Psychiatric exam: Present: normal affect, normal mood Skin exam: Present: warm, dry <Joan Sheets - Last Filed: 09/05/23 23:38> - General Exam Comments Initial Comments: Visual Physical Exam Vital signs reviewed General: Well-appearing, nontoxic, no acute distress. Head: Normocephalic, atraumatic Eyes: PERRLA, EOMI ENT: Airway patent Chest: Nonlabored breathing Skin: No visual rash, normal skin tone Neuro: Alert and oriented 3 Musculoskeletal: No gross abnormalities (Yvette Purvis) Course Vital Signs 09/05/23 09/05/23 09/05/23 15:36 19:50 21:00 Temperature 98.1 F 98.6 F Pulse Rate 80 74 68 Respiratory 18 16 16 Rate Blood Pressure 119/67 140/73 131/77 O2 Sat by Pulse 93 L 100 100 Oximetry 09/05/23 22:42 Temperature 98.6 F Pulse Rate 72 Respiratory 16 Rate Blood Pressure 147/58 O2 Sat by Pulse 98 Oximetry Medical Decision Making <Yvette Purvis - Last Filed: 09/05/23 15:43> - Lab Data Result diagrams: 09/05/23 17:19 09/05/23 17:19 <Joan Sheets - Last Filed: 09/05/23 23:38> - Medical Decision Making I performed the quick note portion of this chart. Electronically signed by Yvette Purvis PA-C (Yvette Purvis) Was pt. sent in by a medical professional or institution ([facility], POWER TRANSFORMER REPAIRER, urgent care, hospital, or custodial...) When possible be specific @ -No Did you speak to anyone other than the patient for history (EMS, parent, family, police, friend...)? What history was obtained from this source @ -I spoke with the patient's son and [id number] Did you review nursing and triage notes (agree or disagree)? Why? @ -I reviewed the triage note and I disagree, I spoke with the patient's son and [id number] who both state that the patient constantly has family at home with her who help take care of her and they do not think that she needs to be in a custodial Were old charts reviewed (outside hosp., previous admission, EMS record, old EKG, old radiological studies, urgent care reports/EKG's, custodial records)? Report findings @ -No old charts were reviewed Differential Diagnosis (chest pain, altered mental status, abdominal pain women, abdominal pain men, vaginal bleeding, weakness, fever, dyspnea, syncope, headache, dizziness, GI bleed, back pain, seizure, CVA, palpatations, mental health, musculoskeletal)? @ -Differential Musculoskeletal Muscular strain, contusion, ligament sprain, fracture, arthritis, septic arthritis, bursitis, cellulitis, muscle spasm, nerve compression, DVT, arterial occlusion, herpes zoster, electrolyte abnormality, tumor.... This is not meant to be in all inclusive list EKG interpreted by me (3pts min.). @ -As above X-rays interpreted by me (1pt min.). @ -X-ray shows no acute osseous pathology. Severe right shoulder osteoarthrosis with joint space narrowing and acetabular rotation of the acromion suggesting full-thickness rotator cuff tear CT interpreted by me (1pt min.). @ -None done U/S interpreted by me (1pt. min.). @ -None done What testing was considered but not performed or refused? (CT, X-rays, U/S, labs)? Why? @ -None What meds were considered but not given or refused? Why? @ -None Did you discuss the management of the patient with other professionals (professionals i.e. , PA, POWER TRANSFORMER REPAIRER, lab, RT, psych nurse, adoption social worker, alley worker, teacher, banking officer, protective services case worker)? Give summary @ -No Was smoking cessation discussed for >3mins.? @ -No Was critical care preformed (if so, how long)? @ -No Were there social determinants of health that impacted care today? How? (Homelessness, low income, unemployed, alcoholism, drug addiction, transportation, low edu. Level, literacy, decrease access to med. care, senior care, rehab)? @ -No Was there de-escalation of care discussed even if they declined (Discuss DNR or withdrawal of care, Hospice)? DNR status @ -No What co-morbidities impacted this encounter? (DM, HTN, Smoking, COPD, CAD, Cancer, CVA, ARF, Chemo, Hep., AIDS, mental health diagnosis, sleep apnea, morbid obesity)? @ -Dementia Was patient admitted / discharged? Hospital course, mention meds given and route, prescriptions, significant lab abnormalities, going to OR and other pertinent info. @ -88-year-old female with history of dementia presenting with chief complaint of right shoulder pain. Denies any injury or trauma. She has limited range of motion secondary to pain. Labs require no further action. X-rays negative for fracture or dislocation. I spoke with the patient's son who states that he is comfortable discharge home and believes that he and his brother are able to take care of the patient and she does not need custodial care at this time. D ischarged follow-up with PCP. Report back to ER with any new or worsening symptoms. Discussed return parameters and answered all questions. Patient conveyed verbal understanding and agreed to the plan. I discussed this case in detail with my attending Dr. Panchal Undiagnosed new problem with uncertain prognosis? @ -No Drug Therapy requiring intensive monitoring for toxicity (Heparin, Nitro, I nsulin, Cardizem)? @ -No Were any procedures done? @ -No Diagnosis/symptom? @ -Shoulder pain, dementia Acute, or Chronic, or Acute on Chronic? @ -Acute, acute on chronic Uncomplicated (without systemic symptoms) or Complicated (systemic symptoms)? @ -Uncomplicated Side effects of treatment? @ -No Exacerbation, Progression, or Severe Exacerbation? @ -No Poses a threat to life or bodily function? How? (Chest pain, USA, PA, pneumonia, PE, COPD, DKA, ARF, appy, cholecystitis, CVA, Diverticulitis, Homicidal, Suicidal, threat to staff... and all critical care pts) @ -No immediate threat (Joan Sheets) - Lab Data Lab Results 09/05/23 09/05/23 09/05/23 Range/Units 17:19 17:19 20:48 WBC 7.0 (3.8-10.6) k/uL RBC 4.16 (3.80-5.40) m/uL Hgb 11.4 (11.4-16.0) gm/dL Hct 37.5 (34.0-46.0) % MCV 90.1 (80.0-100.0) fL MCH 27.4 (25.0-35.0) pg MCHC 30.5 L (31.0-37.0) g/dL RDW 17.1 H (11.5-15.5) % Plt Count 322 (150-450) k/uL MPV 7.1 Neutrophils % 67 % Lymphocytes % 21 % Monocytes % 7 % Eosinophils % 2 % Basophils % 1 % Neutrophils # 4.7 (1.3-7.7) k/uL Lymphocytes # 1.5 (1.0-4.8) k/uL Monocytes # 0.5 (0-1.0) k/uL Eosinophils # 0.1 (0-0.7) k/uL Basophils # 0.0 (0-0.2) k/uL Hypochromasia Marked Anisocytosis Slight Sodium 137 (137-145) mmol/L Potassium 4.2 (3.5-5.1) mmol/L Chloride 100 (98-107) mmol/L Carbon Dioxide 32 H (22-30) mmol/L Anion Gap 5 mmol/L BUN 14 (7-17) mg/dL Creatinine 0.74 (0.52-1.04) mg/dL Est GFR (CKD-EPI)AfAm 84 (>60 ml/min/1.73 sqM) Est GFR (CKD-EPI)NonAf 73 (>60 ml/min/1.73 sqM) Glucose 96 (74-99) mg/dL Calcium 9.9 (8.4-10.2) mg/dL Total Bilirubin 0.7 (0.2-1.3) mg/dL AST 32 (14-36) U/L ALT 12 (4-34) U/L Alkaline Phosphatase 74 (38-126) U/L Total Protein 6.8 (6.3-8.2) g/dL Albumin 4.2 (3.5-5.0) g/dL Urine Color Colorless Urine Appearance Clear (Clear) Urine pH 7.5 (5.0-8.0) Ur Specific [place] 1.013 (1.001-1.035) Urine Protein Negative (Negative) Urine Glucose (UA) Negative (Negative) Urine Ketones Negative (Negative) Urine Blood Negative (Negative) Urine Nitrite Negative (Negative) Urine Bilirubin Negative (Negative) Urine Urobilinogen <2.0 (<2.0) mg/dL Ur Leukocyte Esterase Negative (Negative) Disposition <Yvette Purvis - Last Filed: 09/05/23 15:43> Is patient prescribed a controlled substance at d/c from ED?: No Time of Disposition: 22:14 <Joan Sheets - Last Filed: 09/05/23 23:38> Clinical Impression: Shoulder pain, Dementia Disposition: HOME SELF-CARE Condition: Good Instructions (If sedation given, give patient instructions): Shoulder Pain (ED) Additional Instructions: Follow-up with PCP. Report back to ER with any new or worsening symptoms. Referrals: Tacos Saha MD [Primary Care Provider] - 1-2 days
--- NOTE | 2023-09-05 17:22 | XR ---
EXAMINATION TYPE: XR shoulder complete RT DATE OF EXAM: 09/05/2023 5:04 PM CLINICAL INDICATION:Female, 88 years old with history of pain; [facility] COMPARISON: None TECHNIQUE: XR shoulder complete RT; examined in AP, internally rotated and scapular Y projections. FINDINGS: No evidence of acute osseous pathology, joint dislocation, or soft tissue swelling. The remaining po rtions of the visualized chest are unremarkable. Degeneration changes of the acromion, distal clavic le with osteophyte formation. There is osteophyte formation of the glenoid and humeral head. There is joint space narrowing of glenohumeral joint. Acetabularization of the acromion with narrowing of the acromiohumeral interval. IMPRESSION: 1. No acute osseous pathology. 2. Severe right shoulder osteoarthrosis with joint space narrowing and acetabularization of the acrom ion suggesting full-thickness rotator cuff tear
[2023-09-05 17:35] LABS: Anisocytosis Slight; Basophils % (A) 1 %; Eosinophils # (A) 0.1 k/uL (0-0.7); Eosinophils % (A) 2 %; HCT 37.5 % (34.0-46.0); HGB 11.4 gm/dL (11.4-16.0); Hypochromasia Marked; Lymphocytes # (A) 1.5 k/uL (1.0-4.8); Lymphocytes % (A) 21 %; MCH 27.4 pg (25.0-35.0); MCHC 30.5 g/dL (31.0-37.0); MCV 90.1 fL (80.0-100.0); Mean Platelet Volume 7.1; Monocytes # (A) 0.5 k/uL (0-1.0); Monocytes % (A) 7 %; Neutrophils # (A) 4.7 k/uL (1.3-7.7); Neutrophils % (A) 67 %; Platelet Count 322 k/uL (150-450); RBC 4.16 m/uL (3.80-5.40); RDW 17.1 % (11.5-15.5)
[2023-09-05 17:56] LABS: ALT 12 U/L (4-34); AST 32 U/L (14-36); African American GFR (CKD) 84 (>60 ml/min/1.73 sqM); Albumin 4.2 g/dL (3.5-5.0); Alkaline Phosphatase 74 U/L (38-126); Anion Gap 5 mmol/L; Blood Urea Nitrogen 14 mg/dL (7-17); Calcium 9.9 mg/dL (8.4-10.2); Carbon Dioxide 32 mmol/L (22-30); Chloride 100 mmol/L (98-107); Glucose 96 mg/dL (74-99); Non-African American GFR(CKD) 73 (>60 ml/min/1.73 sqM); Potassium 4.2 mmol/L (3.5-5.1); Sodium 137 mmol/L (137-145); Total Bilirubin 0.7 mg/dL (0.2-1.3); Total Protein 6.8 g/dL (6.3-8.2)
[2023-09-05 19:52] VITALS: RESP 16; TEMP 98.6
[2023-09-05 22:01] LABS: Appearance,Urine Clear (Clear); Bilirubin,Urine Negative (Negative); Blood,Urine Negative (Negative); Color,Urine Colorless; Glucose,Urine (UA) Negative (Negative); Ketones,Urine Negative (Negative); Leukocyte Esterase,Urine Negative (Negative); Nitrite,Urine Negative (Negative); PH, Urine 7.5 (5.0-8.0); Protein,Urine Negative (Negative); Specific Gravity,Urine 1.013 (1.001-1.035); Urobilinogen,Urine <2.0 mg/dL (<2.0)
[2023-09-05 22:46] VITALS: BP 147/58; PULSE 72
== END 2023-09-05 22:41 | disposition home or self-care (01) ==
LOC: EC 15:27
DX: M25.511 Pain in right shoulder (principal); F03.90 Unspecified dementia, unspecified severity, without behavioral disturbance, psychotic disturbance, mood disturbance, and anxiety; Z87.891 Personal history of nicotine dependence
CPT/HCPCS: 36415; 80053; 81003; 85025; 99285

== ENCOUNTER 2023-09-23 21:55 | Observation (INO) | payer MEDICARE, BC ==
[2023-09-23 23:19] LABS: Anisocytosis Slight; Basophils # (A) 0.1 k/uL (0-0.2); Basophils % (A) 1 %; Eosinophils # (A) 0.1 k/uL (0-0.7); Eosinophils % (A) 2 %; HCT 35.2 % (34.0-46.0); HGB 10.7 gm/dL (11.4-16.0); Hypochromasia Marked; Lymphocytes # (A) 1.9 k/uL (1.0-4.8); Lymphocytes % (A) 37 %; MCH 26.2 pg (25.0-35.0); MCHC 30.2 g/dL (31.0-37.0); MCV 86.6 fL (80.0-100.0); Mean Platelet Volume 6.8; Monocytes # (A) 0.4 k/uL (0-1.0); Monocytes % (A) 8 %; Neutrophils # (A) 2.6 k/uL (1.3-7.7); Neutrophils % (A) 50 %; Platelet Count 373 k/uL (150-450); RBC 4.07 m/uL (3.80-5.40); RDW 16.5 % (11.5-15.5); WBC 5.2 k/uL (3.8-10.6)
--- NOTE | 2023-09-23 23:24 | ED ---
Nausea/Vomiting/Diarrhea HPI - General Chief complaint: Nausea/Vomiting/Diarrhea Stated complaint: Diarrhea Time Seen by Provider: 09/23/23 22:06 Source: patient Mode of arrival: EMS Limitations: no limitations - Related Data Home Medications Medication Instructions Recorded Confirmed Pantoprazole [Protonix] 40 mg PO DAILY 04/11/18 09/05/23 Albuterol Inhaler [Ventolin Hfa 2 puff INHALATION RT-Q6H PRN 04/29/22 09/05/23 Inhaler] Apixaban [Eliquis] 2.5 mg PO BID 04/29/22 09/05/23 DULoxetine HCL [Cymbalta] 30 mg PO DAILY 04/29/22 09/05/23 Denosumab [Prolia] 60 mg SQ Q180D 04/29/22 09/05/23 Furosemide [Lasix] 20 mg PO DAILY 04/29/22 09/05/23 Isosorbide Mononitrate ER [Imdur] 30 mg PO DAILY 04/29/22 09/05/23 Cholecalciferol [Vitamin D3 (25 25 mcg PO DAILY 09/30/22 09/05/23 Mcg = 1000 Iu)] Ascorbic Acid [Vitamin C] 500 mg PO DAILY 10/27/22 09/05/23 Atorvastatin [Lipitor] 10 mg PO HS 03/04/23 09/05/23 Ferrous Sulfate [Iron (65 MG 325 mg PO DAILY 03/04/23 09/05/23 Elemental)] Aspirin EC [Ecotrin Low Dose] 81 mg PO DAILY 08/01/23 09/05/23 Cider Vinegar [Apple Cider Vinegar] 600 mg PO DAILY 08/01/23 09/05/23 Melatonin 1 mg PO HS 08/01/23 09/05/23 QUEtiapine [SEROquel] 25 mg PO HS 08/01/23 09/05/23 Donepezil [Aricept] 5 mg PO HS 09/05/23 09/05/23 amLODIPine [Norvasc] 10 mg PO DAILY 09/05/23 09/05/23 Previous Rx's Medication Instructions Recorded Acetaminophen-Codeine 300-30mg 1 tab PO BID PRN #4 tab 12/28/22 [Tylenol w/codeine #3] Clopidogrel [Plavix] 75 mg PO DAILY 30 Days #30 tab 12/28/22 ALPRAZolam [Xanax] 0.25 mg PO TID PRN #60 tab 05/17/23 Allergies Allergy/AdvReac Type Severity Reaction Status Date / Time No Known Allergies Allergy Verified 09/23/23 21:58 Review of Systems ROS Statement: Those systems with pertinent positive or pertinent negative responses have been documented in the HPI. ROS Other: All systems not noted in ROS Statement are negative. 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 Past Psychological History: Anxiety Smoking Status: Former smoker Past Alcohol Use History: None Reported Past Drug Use History: None Reported - Past Family History Brother(s) Family Medical History: Cancer Sister(s) Family Medical History: Cancer Mother Additional Family Medical History / Comment(s): enlarged heart General Exam Limitations: no limitations Course Vital Signs 09/23/23 09/24/23 21:58 00:13 Temperature 97.3 F L Pulse Rate 46 L 71 Respiratory 16 14 Rate Blood Pressure 124/58 124/58 O2 Sat by Pulse 98 99 Oximetry Medical Decision Making - Lab Data Result diagrams: 09/23/23 22:48 09/23/23 22:48 Lab Results 09/23/23 09/23/23 09/23/23 Range/Units 22:48 22:48 22:48 WBC 5.2 (3.8-10.6) k/uL RBC 4.07 (3.80-5.40) m/uL Hgb 10.7 L (11.4-16.0) gm/dL Hct 35.2 (34.0-46.0) % MCV 86.6 (80.0-100.0) fL MCH 26.2 (25.0-35.0) pg MCHC 30.2 L (31.0-37.0) g/dL RDW 16.5 H (11.5-15.5) % Plt Count 373 (150-450) k/uL MPV 6.8 Neutrophils % 50 % Lymphocytes % 37 % Monocytes % 8 % Eosinophils % 2 % Basophils % 1 % Neutrophils # 2.6 (1.3-7.7) k/uL Lymphocytes # 1.9 (1.0-4.8) k/uL Monocytes # 0.4 (0-1.0) k/uL Eosinophils # 0.1 (0-0.7) k/uL Basophils # 0.1 (0-0.2) k/uL Hypochromasia Marked Anisocytosis Slight Sodium 140 (137-145) mmol/L Potassium 4.1 (3.5-5.1) mmol/L Chloride 103 (98-107) mmol/L Carbon Dioxide 34 H (22-30) mmol/L Anion Gap 3 mmol/L BUN 14 (7-17) mg/dL Creatinine 0.83 (0.52-1.04) mg/dL Est GFR (CKD-EPI)AfAm 73 (>60 ml/min/1.73 sqM) Est GFR (CKD-EPI)NonAf 64 (>60 ml/min/1.73 sqM) Glucose 74 (74-99) mg/dL Calcium 10.1 (8.4-10.2) mg/dL Total Bilirubin 0.5 (0.2-1.3) mg/dL AST 26 (14-36) U/L ALT 7 (4-34) U/L Alkaline Phosphatase 71 (38-126) U/L Total Protein 6.1 L (6.3-8.2) g/dL Albumin 3.6 (3.5-5.0) g/dL Stool Occult Blood Positive H (Negative) - EKG Data -: EKG Interpreted by Me EKG shows normal: sinus rhythm, intervals (KS interval 213 ms, prolonged con sistent with first-degree AV block. QRS duration 81 ms, QTc 422 ms, both normal.), QRS complexes (Old septal infarct.) Rate: bradycardia (Rate 43 bpm) Disposition Clinical Impression: Diverticulitis Condition: Good Instructions (If sedation given, give patient instructions): Diverticulitis (DC) Is patient prescribed a controlled substance at d/c from ED?: No Referrals: Tacos Saha MD [Primary Care Provider] - 1-2 days
[2023-09-23 23:35] LABS: ALT 7 U/L (4-34); AST 26 U/L (14-36); African American GFR (CKD) 73 (>60 ml/min/1.73 sqM); Albumin 3.6 g/dL (3.5-5.0); Alkaline Phosphatase 71 U/L (38-126); Anion Gap 3 mmol/L; Blood Urea Nitrogen 14 mg/dL (7-17); Calcium 10.1 mg/dL (8.4-10.2); Carbon Dioxide 34 mmol/L (22-30); Chloride 103 mmol/L (98-107); Glucose 74 mg/dL (74-99); Non-African American GFR(CKD) 64 (>60 ml/min/1.73 sqM); Potassium 4.1 mmol/L (3.5-5.1); Sodium 140 mmol/L (137-145); Total Bilirubin 0.5 mg/dL (0.2-1.3); Total Protein 6.1 g/dL (6.3-8.2)
--- NOTE | 2023-09-24 00:39 | CT ---
EXAM: CT Abdomen and Pelvis Without Intravenous Contrast CLINICAL HISTORY: ITS.REASON CT Reason: diffuse abdominal pain TECHNIQUE: Axial computed tomography images of the abdomen and pelvis without intravenous contrast. CTDI is 10.4 mGy and DLP is 571.2 mGy-cm. This CT exam was performed using one or more of the following dose reduction techniques: automated exposure control, adjustment of the mA and/or kV according to patient size, and/or use of iterative reconstruction technique. COMPARISON: No relevant prior studies available. FINDINGS: Lung bases: Emphysema and scarring at the lung bases. No consolidation. ABDOMEN: Liver: Unremarkable. Gallbladder and bile ducts: Cholecystectomy. Dilated common bile duct measuring 1.3 cm, potentially reservoir effect. No calcified duct stone. Pancreas: Unremarkable. No ductal dilation. Spleen: Unremarkable. No splenomegaly. Adrenals: Unremarkable. No mass. Kidneys and ureters: Unremarkable. No obstructing stones. No hydronephrosis. Stomach and bowel: No bowel obstruction. Pancolonic diverticulosis. Mild stranding around a mid sigmoid diverticulum (axial 97, sagittal 58), potentially mild uncomplicated diverticulitis. PELVIS: Appendix: Normal appendix. Bladder: Unremarkable. No stones. Reproductive: Unremarkable as visualized. ABDOMEN and PELVIS: Intraperitoneal space: Unremarkable. No free fluid, free air, or abscess. Bones/joints: Osteopenia. Lumbar spondylosis. Anterior interbody fusion at L5-S1 with solid incorporation of the interbody graft. No acute fracture or dislocation. Soft tissues: Unremarkable. Vasculature: Atherosclerosis. Infrarenal abdominal aortic aneurysm measuring 5.0 x 5.3 cm. Right common iliac artery aneurysm measuring 2.7 cm. Lymph nodes: Unremarkable. No enlarged lymph nodes. IMPRESSION: 1. Pancolonic diverticulosis. Mild stranding around a mid sigmoid diverticulum (axial 97, sagittal 58), potentially mild uncomplicated diverticulitis. 2. Atherosclerosis. Infrarenal abdominal aortic aneurysm measuring 5.0 x 5.3 cm. Surgical consultation advised. 3. Right common iliac artery aneurysm measuring 2.7 cm.
[2023-09-24] MEDS ORDERED: MAG HYDROX/AL HYDROX/SIMETH 30 ML CUP PO PRN (02:20)
[2023-09-24] MEDS ORDERED: NALOXONE 0.4 MG/ML 1 ML VIAL IV PRN (02:20)
[2023-09-24] MEDS: SODIUM CHLORIDE 0.9% 1,000 ML IV SCH (02:34)
[2023-09-24] MEDS ORDERED: Acetaminophen-Codeine 300-30mg TAB PO PRN (07:27)
[2023-09-24] MEDS ORDERED: ALBUTEROL NEBULIZED 2.5 MG/3 ML INHALATION PRN (07:27)
[2023-09-24] MEDS: PANTOPRAZOLE 40 MG TABLET PO SCH (08:16)
[2023-09-24] MEDS: AMOXIC-POT CLAV 875-125MG 1 EACH TAB PO SCH (08:17)
[2023-09-24] MEDS: FERROUS SULFATE 325 MG TAB PO SCH (08:17)
[2023-09-24] MEDS: ASPIRIN 81 MG PO SCH (08:17)
[2023-09-24] MEDS: ISOSORBIDE MONONITRATE ER 30 MG TAB.ER.24H PO SCH (08:18)
[2023-09-24] MEDS: CHOLECALCIFEROL 25 MCG (1000 IU) TABLET PO SCH (08:18)
[2023-09-24] MEDS: FUROSEMIDE 20 MG TAB PO SCH (08:20)
[2023-09-24] MEDS: ASCORBIC ACID 500 MG TAB PO SCH (08:20)
[2023-09-24] MEDS: APIXABAN 5 MG TAB PO SCH (08:22)
[2023-09-24] MEDS: amLODIPine 10 MG TAB PO SCH (08:22)
[2023-09-24] MEDS: FAMOTIDINE 20 MG TAB PO SCH (08:22)
[2023-09-24] MEDS: DULoxetine HCL 30 MG CAPSULE.DR PO SCH (08:23)
[2023-09-24] MEDS: metroNIDAZOLE-NS PMX 500 MG in SALINE 1 100ML.BAG IVPB SCH (08:26)
[2023-09-24] MEDS ORDERED: FAMOTIDINE 20 MG TAB PO SCH (09:00)
[2023-09-24] MEDS: PIPERACILLIN-TAZOBACTAM 3.375 GM in SODIUM CHLORIDE 0.9% 100 ML IVPB STA (10:54)
--- NOTE | 2023-09-24 11:50 | P.GSCN ---
History of Present Illness Consult date: 09/24/23 History of present illness: CHIEF COMPLAINT: Abdominal pain HISTORY OF PRESENT ILLNESS: This is a 88-year-old female who presented with left lower quadrant abdominal pain x 2 weeks. She reports that her pain gets to 7 out of 10. She has been having loose stools. Denies any blood in her stools. Denies any nausea or vomiting. She reports she has diarrhea after eating. She denies any prior history of diverticulitis or colitis. She has never had a colonoscopy. She is on Plavix and Eliquis at home. She has history of CVA and did need a carotid endartectomy. She also has an abdominal aortic aneurysm and is being seen by cardiothoracic surgeon. CAT scan had revealed diverticulosis and mild diverticulitis. Patient is on antibiotics. Her past abdominal marcus rgical history includes cholecystectomy. PAST MEDICAL HISTORY: See list. PAST SURGICAL HISTORY: See list. MEDICATIONS: See list. ALLERGIES: See list. SOCIAL HISTORY: No illicit drug use. REVIEW OF SYSTEMS: CONSTITUTIONAL: Denies fever or chills. HEENT: Denies blurred vision, vision changes, or eye pain. Denies hemoptysis ENDOCRINE: Denies heat or cold intolerance. CARDIOVASCULAR: Denies chest pain or pressure. RESPIRATORY: No shortness of breath. GASTROINTESTINAL: Please refer to HPI otherwise unremarkable NEURO: Denies history of seizures. PSYCH: No depression or suicidal ideation HEMATOLOGIC: Denies bleeding disorders. LYMPHATIC: The patient denies any lumps and bumps around the neck. GENITOURINARY: Denies any blood in urine or increased urinary frequency. MUSCULOSKELETAL: Denies myalgias. Denies joint swelling. Denies decreased range of motion beyond patients baseline. SKIN: Denies pruitis. Denies rash. PHYSICAL EXAM: VITAL SIGNS: Reviewed GENERAL: Well-developed in no acute distress. HEENT: No sclera icterus. Extraocular movements grossly intact. Moist buccal mucosa. Head is atraumatic, normocephalic. Hears conversational speech. No nasal drainage. NECK: Supple without lymphadenopathy. CHEST: Non-labored respirations and equal bilateral excursions. CARDIOVASCULAR: Palpable 2+ radial pulses. ABDOMEN: Soft. Nondistended. Left lower quadrant tenderness MUSCULOSKELETAL: No clubbing or cyanosis. NEUROLOGIC: No focal or lateralizing signs. Cranial nerves II through XII grossly intact. PSYCH: Appropriate affect. Alert and oriented to person, place and time. SKIN: Well perfused. Good skin turgor. LABORATORY DATA: WBC 5.2 Hgb 10.7 platelets 373 Sodium 140 potassium 4.1 creatinine 0.83 LFTs normal Stool for occult blood positive Stool for C. difficile not collected yet IMAGING: CT scan abdomen pelvis reports pancolonic diverticulosis. Mild stranding around a mid sigmoid diverticulum. Potentially mild uncomplicated diverticulitis. Infrarenal abdominal aortic aneurysm measuring 5 x 5.3 cm. right common iliac artery aneurysm measuring 2.7 cm ASSESSMENT: 1. Acute diverticulitis. CT scan reporting pancolonic diverticulosis with mild stranding around sigmoid diverticulum. Potentially mild uncomplicated diverticulitis 2. Abdominal aortic aneurysm 3. Right common iliac artery aneurysm 4. History of CVA and carotid endartectomy 5. History of breast cancer PLAN: -No surgical intervention planned at this time -Downgrade diet to clear liquids -Continue IV antibiotics -Continue to monitor -Patient is being seen by vascular surgery for abdominal aortic aneurysm Physician Rug Measurer note has been reviewed by physician. Signing provider agrees with the documented findings, assessment, and plan of care. Past Medical History Past Medical History: Cancer, Chest Pain / Angina, Heart Failure, COPD, CVA/TIA, Dementia, Deep Vein Thrombosis (DVT), Hyperlipidemia, Hypertension, O steoarthritis (OA), Pneumonia Additional Past Medical History / Comment(s): CVA X2- LEFT SIDE WEAKNESS-uses a walker,, emphysema; hypoglycemia, hx breast cancer, History of Any Multi-Drug Resistant Organisms: None Reported Past Surgical History: Back Surgery, Breast Surgery, Cholecystectomy, Heart Catheterization Additional Past Surgical History / Comment(s): L SUBCLAVIAN ARTERY BYPASS, Rt CAROTID ENDARTECTOMY, rt breast lumpectomy Past Anesthesia/Blood Transfusion Reactions: No Reported Reaction Additional Past Anesthesia/Blood Transfusion Reaction / Comm: . Past Psychological History: Anxiety Smoking Status: Former smoker Past Alcohol Use History: None Reported Past Drug Use History: None Reported - Past Family History Brother(s) Family Medical History: Cancer Sister(s) Family Medical History: Cancer Mother Additional Family Medical History / Comment(s): enlarged heart Medications and Allergies Home Medications Medication Instructions Recorded Confirmed Type Pantoprazole [Protonix] 40 mg PO DAILY 04/11/18 09/24/23 History Albuterol Inhaler [Ventolin Hfa 2 puff INHALATION RT-Q6H PRN 04/29/22 09/24/23 History Inhaler] Apixaban [Eliquis] 2.5 mg PO BID 04/29/22 09/24/23 History DULoxetine HCL [Cymbalta] 30 mg PO DAILY 04/29/22 09/24/23 History Denosumab [Prolia] 60 mg SQ Q180D 04/29/22 09/24/23 History Furosemide [Lasix] 20 mg PO DAILY 04/29/22 09/24/23 History Isosorbide Mononitrate ER [Imdur] 30 mg PO DAILY 04/29/22 09/24/23 History Cholecalciferol [Vitamin D3 (25 25 mcg PO DAILY 09/30/22 09/24/23 History Mcg = 1000 Iu)] Ascorbic Acid [Vitamin C] 500 mg PO DAILY 10/27/22 09/24/23 History Acetaminophen-Codeine 300-30mg 1 tab PO BID PRN #4 tab 12/28/22 09/24/23 Rx [Tylenol w/codeine #3] Clopidogrel [Plavix] 75 mg PO DAILY 30 Days #30 tab 12/28/22 09/24/23 Rx Atorvastatin [Lipitor] 10 mg PO HS 03/04/23 09/24/23 History Ferrous Sulfate [Iron (65 MG 325 mg PO DAILY 03/04/23 09/24/23 History Elemental)] ALPRAZolam [Xanax] 0.25 mg PO TID PRN #60 tab 05/17/23 09/24/23 Rx Aspirin EC [Ecotrin Low Dose] 81 mg PO DAILY 08/01/23 09/24/23 History Cider Vinegar [Apple Cider Vinegar] 600 mg PO DAILY 08/01/23 09/24/23 History Melatonin 1 mg PO HS 08/01/23 09/24/23 History QUEtiapine [SEROquel] 25 mg PO HS 08/01/23 09/24/23 History Donepezil [Aricept] 5 mg PO HS 09/05/23 09/24/23 History amLODIPine [Norvasc] 10 mg PO DAILY 09/05/23 09/24/23 History Allergies Allergy/AdvReac Type Severity Reaction Status Date / Time No Known Allergies Allergy Verified 09/24/23 08:50 Surgical - Exam Vital Signs Temp Pulse Resp BP Pulse Ox 97.3 F L 46 L 16 124/58 98 09/23/23 21:58 09/23/23 21:58 09/23/23 21:58 09/23/23 21:58 09/23/23 21:58 Results - Labs 09/23/23 22:48 09/23/23 22:48 Abnormal Lab Results - Last 24 Hours (Table) 09/23/23 09/23/23 09/23/23 Range/Units 22:48 22:48 22:48 Hgb 10.7 L (11.4-16.0) gm/dL MCHC 30.2 L (31.0-37.0) g/dL RDW 16.5 H (11.5-15.5) % Carbon Dioxide 34 H (22-30) mmol/L Total Protein 6.1 L (6.3-8.2) g/dL Stool Occult Blood Positive H (Negative) Diabetes panel 09/23/23 Range/Units 22:48 Sodium 140 (137-145) mmol/L Potassium 4.1 (3.5-5.1) mmol/L Chloride 103 (98-107) mmol/L Carbon Dioxide 34 H (22-30) mmol/L BUN 14 (7-17) mg/dL Creatinine 0.83 (0.52-1.04) mg/dL Glucose 74 (74-99) mg/dL Calcium 10.1 (8.4-10.2) mg/dL AST 26 (14-36) U/L ALT 7 (4-34) U/L Alkaline Phosphatase 71 (38-126) U/L Total Protein 6.1 L (6.3-8.2) g/dL Albumin 3.6 (3.5-5.0) g/dL Calcium panel 09/23/23 Range/Units 22:48 Calcium 10.1 (8.4-10.2) mg/dL Albumin 3.6 (3.5-5.0) g/dL Pituitary panel 09/23/23 Range/Units 22:48 Sodium 140 (137-145) mmol/L Potassium 4.1 (3.5-5.1) mmol/L Chloride 103 (98-107) mmol/L Carbon Dioxide 34 H (22-30) mmol/L BUN 14 (7-17) mg/dL Creatinine 0.83 (0.52-1.04) mg/dL Glucose 74 (74-99) mg/dL Calcium 10.1 (8.4-10.2) mg/dL Adrenal panel 09/23/23 Range/Units 22:48 Sodium 140 (137-145) mmol/L Potassium 4.1 (3.5-5.1) mmol/L Chloride 103 (98-107) mmol/L Carbon Dioxide 34 H (22-30) mmol/L BUN 14 (7-17) mg/dL Creatinine 0.83 (0.52-1.04) mg/dL Glucose 74 (74-99) mg/dL Calcium 10.1 (8.4-10.2) mg/dL Total Bilirubin 0.5 (0.2-1.3) mg/dL AST 26 (14-36) U/L ALT 7 (4-34) U/L Alkaline Phosphatase 71 (38-126) U/L Total Protein 6.1 L (6.3-8.2) g/dL Albumin 3.6 (3.5-5.0) g/dL
--- NOTE | 2023-09-24 11:55 | P.GSCN ---
History of Present Illness Consult date: 09/24/23 Reason for Consult: AAA Requesting physician: Kate Monterroso History of present illness: That is next week I think right this is a pleasant 88-year-old -[place] female who presented to the emergency department according to the chart for diarrhea and abdominal pain. Patient states she does not recall why she came to the emergency department but she has no complaints at this time. She has a past medical history including heart failure, COPD, CVA, dementia, DVT, hyperlipidemia, hypertension, and breast cancer. She had a CT of the abdomen and pelvis without contrast which had reported pancolonic diverticulosis as well as arthrosclerosis infrarenal abdominal aortic aneurysm with right common iliac artery aneurysm and therefore vascular surgery was consulted. Patient denies any abdominal pain, no pain in her back, no nausea or vomiting, chest pain or shortness of breath. She denies any previous known history of abdominal aortic aneurysm. However reviewing her chart does appear that she had a CT angiogram of the chest in April 2022 that had reported a 4.9 cm abdominal aortic aneurysm with common iliac artery dilation of 2.8 cm. Review of Systems A 14 point review systems was completed all pertinent positives and negatives as stated in the HPI. Past Medical History Past Medical History: Cancer, Chest Pain / Angina, Heart Failure, COPD, CVA/TIA, Dementia, Deep Vein Thrombosis (DVT), Hyperlipidemia, Hypertension, Osteoart hritis (OA), Pneumonia Additional Past Medical History / Comment(s): CVA X2- LEFT SIDE WEAKNESS-uses a walker,, emphysema; hypoglycemia, hx breast cancer, History of Any Multi-Drug Resistant Organisms: None Reported Past Surgical History: Back Surgery, Breast Surgery, Cholecystectomy, Heart Catheterization Additional Past Surgical History / Comment(s): L SUBCLAVIAN ARTERY BYPASS, Rt CAROTID ENDARTECTOMY, rt breast lumpectomy Past Anesthesia/Blood Transfusion Reactions: No Reported Reaction Additional Past Anesthesia/Blood Transfusion Reaction / Comm: . Past Psychological History: Anxiety Smoking Status: Former smoker Past Alcohol Use History: None Reported Past Drug Use History: None Reported - Past Family History Brother(s) Family Medical History: Cancer Sister(s) Family Medical History: Cancer Mother Additional Family Medical History / Comment(s): enlarged heart Medications and Allergies Home Medications Medication Instructions Recorded Confirmed Type Pantoprazole [Protonix] 40 mg PO DAILY 04/11/18 09/24/23 History Albuterol Inhaler [Ventolin Hfa 2 puff INHALATION RT-Q6H PRN 04/29/22 09/24/23 History Inhaler] Apixaban [Eliquis] 2.5 mg PO BID 04/29/22 09/24/23 History DULoxetine HCL [Cymbalta] 30 mg PO DAILY 04/29/22 09/24/23 History Denosumab [Prolia] 60 mg SQ Q180D 04/29/22 09/24/23 History Furosemide [Lasix] 20 mg PO DAILY 04/29/22 09/24/23 History Isosorbide Mononitrate ER [Imdur] 30 mg PO DAILY 04/29/22 09/24/23 History Cholecalciferol [Vitamin D3 (25 25 mcg PO DAILY 09/30/22 09/24/23 History Mcg = 1000 Iu)] Ascorbic Acid [Vitamin C] 500 mg PO DAILY 10/27/22 09/24/23 History Acetaminophen-Codeine 300-30mg 1 tab PO BID PRN #4 tab 12/28/22 09/24/23 Rx [Tylenol w/codeine #3] Clopidogrel [Plavix] 75 mg PO DAILY 30 Days #30 tab 12/28/22 09/24/23 Rx Atorvastatin [Lipitor] 10 mg PO HS 03/04/23 09/24/23 History Ferrous Sulfate [Iron (65 MG 325 mg PO DAILY 03/04/23 09/24/23 History Elemental)] ALPRAZolam [Xanax] 0.25 mg PO TID PRN #60 tab 05/17/23 09/24/23 Rx Aspirin EC [Ecotrin Low Dose] 81 mg PO DAILY 08/01/23 09/24/23 History Cider Vinegar [Apple Cider Vinegar] 600 mg PO DAILY 08/01/23 09/24/23 History Melatonin 1 mg PO HS 08/01/23 09/24/23 History QUEtiapine [SEROquel] 25 mg PO HS 08/01/23 09/24/23 History Donepezil [Aricept] 5 mg PO HS 09/05/23 09/24/23 History amLODIPine [Norvasc] 10 mg PO DAILY 09/05/23 09/24/23 History Allergies Allergy/AdvReac Type Severity Reaction Status Date / Time No Known Allergies Allergy Verified 09/24/23 08:50 Surgical - Exam Vital Signs Temp Pulse Resp BP Pulse Ox 97.3 F L 46 L 16 124/58 98 09/23/23 21:58 09/23/23 21:58 09/23/23 21:58 09/23/23 21:58 09/23/23 21:58 General appearance: The patient is alert, oriented, appears in no acute dis tress. HET: Head is normocephalic and atraumatic. Pupils are equal and reactive. Neck: Supple. Heart: Regular. Lungs: Equal expansion, normal respiratory effort. Abdomen: Soft, nontender, nondistended. Extremities: Normal skin color and turgor. Palpable bilateral femoral and DP pulses. Neurological: Alert and oriented. Results - Labs 09/23/23 22:48 09/23/23 22:48 Abnormal Lab Results - Last 24 Hours (Table) 09/23/23 09/23/23 09/23/23 Range/Units 22:48 22:48 22:48 Hgb 10.7 L (11.4-16.0) gm/dL MCHC 30.2 L (31.0-37.0) g/dL RDW 16.5 H (11.5-15.5) % Carbon Dioxide 34 H (22-30) mmol/L Total Protein 6.1 L (6.3-8.2) g/dL Stool Occult Blood Positive H (Negative) Diabetes panel 09/23/23 Range/Units 22:48 Sodium 140 (137-145) mmol/L Potassium 4.1 (3.5-5.1) mmol/L Chloride 103 (98-107) mmol/L Carbon Dioxide 34 H (22-30) mmol/L BUN 14 (7-17) mg/dL Creatinine 0.83 (0.52-1.04) mg/dL Glucose 74 (74-99) mg/dL Calcium 10.1 (8.4-10.2) mg/dL AST 26 (14-36) U/L ALT 7 (4-34) U/L Alkaline Phosphatase 71 (38-126) U/L Total Protein 6.1 L (6.3-8.2) g/dL Albumin 3.6 (3.5-5.0) g/dL Calcium panel 09/23/23 Range/Units 22:48 Calcium 10.1 (8.4-10.2) mg/dL Albumin 3.6 (3.5-5.0) g/dL Pituitary panel 09/23/23 Range/Units 22:48 Sodium 140 (137-145) mmol/L Potassium 4.1 (3.5-5.1) mmol/L Chloride 103 (98-107) mmol/L Carbon Dioxide 34 H (22-30) mmol/L BUN 14 (7-17) mg/dL Creatinine 0.83 (0.52-1.04) mg/dL Glucose 74 (74-99) mg/dL Calcium 10.1 (8.4-10.2) mg/dL Adrenal panel 09/23/23 Range/Units 22:48 Sodium 140 (137-145) mmol/L Potassium 4.1 (3.5-5.1) mmol/L Chloride 103 (98-107) mmol/L Carbon Dioxide 34 H (22-30) mmol/L BUN 14 (7-17) mg/dL Creatinine 0.83 (0.52-1.04) mg/dL Glucose 74 (74-99) mg/dL Calcium 10.1 (8.4-10.2) mg/dL Total Bilirubin 0.5 (0.2-1.3) mg/dL AST 26 (14-36) U/L ALT 7 (4-34) U/L Alkaline Phosphatase 71 (38-126) U/L Total Protein 6.1 L (6.3-8.2) g/dL Albumin 3.6 (3.5-5.0) g/dL - Imaging Comments: CT abdomen and pelvis without IV contrast reports pancolonic diverticulosis. Mild stranding around a mid sigmoid diverticulum, potentially mild uncomplicated diverticulitis. Arthrosclerosis. Infrarenal abdominal aortic aneurysm measuring 5.0 x 5.3 cm. Surgical consultation advised. Right common iliac artery aneurysm measuring 2.7 cm. Assessment and Plan Assessment: 1. Asymptomatic abdominal aortic aneurysm 2. Right common iliac artery dilation, unchanged 3. Diarrhea 4. Former smoker 5. Hypertension 6. Hyperlipidemia 7. COPD 8. History of CVA Plan: Abdominal and pelvis CT without IV contrast reviewed. Previous CT angiogram chest done in April 2022 reviewed. There is no indication for any vascular surgical intervention at this time. Recommend outpatient follow-up with vascular surgery for surveillance. Continue rest of medical management per primary medical team. Thank you for this consultation, we will sign off at this time The impression and plan of care has been dictated as directed. I performed a history and examination of this patient, discussed the same with the dictator. I agree with the dictator's note ,documented as a scribe. Any additional findings or plans will be noted.
[2023-09-24] MEDS: PIPERACILLIN-TAZOBACTAM 3.375 GM in SODIUM CHLORIDE 0.9% 100 ML IVPB SCH (18:37)
[2023-09-24] MEDS: MELATONIN 1 MG TAB PO SCH (19:58)
[2023-09-24] MEDS: ATORVASTATIN 10 MG TAB PO SCH (19:58)
[2023-09-24] MEDS: DONEPEZIL 5 MG TAB PO SCH (19:58)
[2023-09-24] MEDS: APIXABAN 2.5 MG TABLET PO SCH (20:50)
--- NOTE | 2023-09-24 21:45 | P.CONS ---
History of Present Illness - Reason for Consult Consult date: 09/24/23 C. difficile colitis Requesting physician: Tacos Saha - Chief Complaint Abdominal pain x 2 weeks - History of Present Illness Patient is a 88-year-old -[place] female past medical history significant for hypertension hyperlipidemia osteoarthritis DVT dementia CVA TIA heart failure presenting to the hospital for evaluation of lower abdominal pain that apparently has been going on for the last 2 weeks patient was described the bleeding moderate intensity without any radiation has complaining of some loose stools mention every time she eats something she has to go to the bathroom and denies any blood or mucus in the stool. Denies any nausea no vomiting no chest pain shortness of breath or cough on presentation to the hospital the patient was afebrile and no fever have been called subsequently patient was not tachycardic or hypotensive and not hypoxic patient did have white count 5.2 creatinine 0.83 liver enzymes are normal patient did have abdominal pelvis CT did shows evidence of pancolonic diverticulosis mild stranding around the mid sigmoid diverticulum potentially mild uncomplicated diverticulitis infectious he was consulted for further management of antibiotic therapy Review of Systems Positive point and negatives has been mentioned in the HPI, complete review of systems was performed and all other systems are negative Past Medical History Past Medical History: Cancer, Chest Pain / Angina, Heart Failure, COPD, CVA/TIA, Dementia, Deep Vein Thrombosis (DVT), Hyperlipidemia, Hypertension, Osteoarthritis (OA), Pneumonia Additional Past Medical History / Comment(s): CVA X2- LEFT SIDE WEAKNESS-uses a walker,, emphysema; hypoglycemia, hx breast cancer, History of Any Multi-Drug Resistant Organisms: None Reported Past Surgical History: Back Surgery, Breast Surgery, Cholecystectomy, Heart Cath eterization Additional Past Surgical History / Comment(s): L SUBCLAVIAN ARTERY BYPASS, Rt CAROTID ENDARTECTOMY, rt breast lumpectomy Past Anesthesia/Blood Transfusion Reactions: No Reported Reaction Additional Past Anesthesia/Blood Transfusion Reaction / Comm: . Past Psychological History: Anxiety Smoking Status: Former smoker Past Alcohol Use History: None Reported Past Drug Use History: None Reported - Past Family History Brother(s) Family Medical History: Cancer Sister(s) Family Medical History: Cancer Mother Additional Family Medical History / Comment(s): enlarged heart Medications and Allergies Home Medications Medication Instructions Recorded Confirmed Type Pantoprazole [Protonix] 40 mg PO DAILY 04/11/18 09/24/23 History Albuterol Inhaler [Ventolin Hfa 2 puff INHALATION RT-Q6H PRN 04/29/22 09/24/23 History Inhaler] Apixaban [Eliquis] 2.5 mg PO BID 04/29/22 09/24/23 History DULoxetine HCL [Cymbalta] 30 mg PO DAILY 04/29/22 09/24/23 History Denosumab [Prolia] 60 mg SQ Q180D 04/29/22 09/24/23 History Furosemide [Lasix] 20 mg PO DAILY 04/29/22 09/24/23 History Isosorbide Mononitrate ER [Imdur] 30 mg PO DAILY 04/29/22 09/24/23 History Cholecalciferol [Vitamin D3 (25 25 mcg PO DAILY 09/30/22 09/24/23 History Mcg = 1000 Iu)] Ascorbic Acid [Vitamin C] 500 mg PO DAILY 10/27/22 09/24/23 History Acetaminophen-Codeine 300-30mg 1 tab PO BID PRN #4 tab 12/28/22 09/24/23 Rx [Tylenol w/codeine #3] Clopidogrel [Plavix] 75 mg PO DAILY 30 Days #30 tab 12/28/22 09/24/23 Rx Atorvastatin [Lipitor] 10 mg PO HS 03/04/23 09/24/23 History Ferrous Sulfate [Iron (65 MG 325 mg PO DAILY 03/04/23 09/24/23 History Elemental)] ALPRAZolam [Xanax] 0.25 mg PO TID PRN #60 tab 05/17/23 09/24/23 Rx Aspirin EC [Ecotrin Low Dose] 81 mg PO DAILY 08/01/23 09/24/23 History Cider Vinegar [Apple Cider Vinegar] 600 mg PO DAILY 08/01/23 09/24/23 History Melatonin 1 mg PO HS 08/01/23 09/24/23 History QUEtiapine [SEROquel] 25 mg PO HS 08/01/23 09/24/23 History Donepezil [Aricept] 5 mg PO HS 09/05/23 09/24/23 History amLODIPine [Norvasc] 10 mg PO DAILY 09/05/23 09/24/23 History Allergies Allergy/AdvReac Type Severity Reaction Status Date / Time No Known Allergies Allergy Verified 09/24/23 08:50 Physical Exam Vitals: Vital Signs Temp Pulse Resp BP Pulse Ox 09/24/23 08:27 18 136/57 09/24/23 07:45 97.6 F 67 181 H 131/59 99 09/24/23 06:00 72 16 127/60 99 09/24/23 05:00 72 21 125/58 99 09/24/23 04:00 67 20 132/61 98 09/24/23 03:00 68 17 133/59 99 09/24/23 02:00 72 18 127/58 98 09/24/23 01:14 68 18 127/58 99 09/24/23 00:13 71 14 124/58 99 09/23/23 21:58 97.3 F L 46 L 16 124/58 98 Intake and Output 09/23/23 09/24/23 09/24/23 22:59 06:59 14:59 Other: Weight 70.307 kg GENERAL DESCRIPTION: Elderly female lying in bed, no distress. No tachypnea or accessory muscle of respiration use. HEENT: Shows Pallor , no scleral icterus. Oral mucous membrane is dry. No pharyngeal erythema or thrush NECK: Trachea central, no thyromegaly. LUNGS: Unlabored breathing. Clear to auscultation anteriorly. No wheeze or crackle. HEART: S1, S2, regular rate and rhythm. No loud murmur ABDOMEN: Soft, mild distention no tenderness , EXTREMITIES: No edema of feet. SKIN: No rash, no masses palpable. NEUROLOGICAL: The patient is awake, alert, oriented x3, mood and affect normal. Results CBC & Chem 7: 09/23/23 22:48 09/23/23 22:48 Labs: Abnormal Lab Results - Last 24 Hours (Table) 09/23/23 09/23/23 09/23/23 Range/Units 22:48 22:48 22:48 Hgb 10.7 L (11.4-16.0) gm/dL MCHC 30.2 L (31.0-37.0) g/dL RDW 16.5 H (11.5-15.5) % Carbon Dioxide 34 H (22-30) mmol/L Total Protein 6.1 L (6.3-8.2) g/dL Stool Occult Blood Positive H (Negative) Assessment and Plan (1) Diverticulitis Current Visit: Yes Status: Acute Code(s): K57.92 - DVTRCLI OF INTEST, PART UNSP, W/O PERF OR ABSCESS W/O BLEED SNOMED Code(s): 472891653 Plan: 1patient presented to the hospital with lower abdominal pain patient also complaining of frequent bowel movements every time she eats she has to the bathroom however denies having any loose/watery stools, patient did have CT abdominal pelvis concerning for diverticulitis did not show any evidence of colitis that being suspicious for C. difficile 2-discontinue Augmentin 3-we will start the patient on Zosyn and monitor clinical course closely We will follow on clinical condition and cultures to further adjust medication if needed Thank you for this consultation we will follow the patient along with you Dictation was produced using Triptrot[employer] dictation software. please excuse any grammatical, word or spelling errors. Time with Patient: Greater than 30
--- NOTE | 2023-09-24 23:31 | P.HPIM ---
History of Present Illness H&P Date: 09/24/23 HISTORY OF PRESENT ILLNESS: 88-year-old with active medical history of COPD, CHF, A-fib, memory loss, recurrent UTI, iron deficiency anemia, A-fib, previous history of CVA, chronic neuropathy, mild PAD, atherosclerotic heart disease with recurrent chest pain and angina, severe bradycardia decline going for pacemaker recently, significant electrolyte abnormality imbalance, recurrent history of lower back pain and chronic arthritis, worsening mobility and significant decline in condition has been seeking family help on more regular basis who apparently presented to the emergency department with complaining of severe diarrhea nausea and vomiting for the last 2 days with much worsening symptoms associating with lower abdominal discomfort left lower quadrant discomfort as well. Was seen and assessed in the emergency department, CAT scan of the abdomen shows pancolitis with diverticulosis with mild stranding around the mid sigmoid diverticulum potentially mild noncomplicated diverticulitis, also have atherosclerosis with infrarenal abdominal aortic aneurysm measuring at 5.0 x 5.3 cm with right common iliac artery aneurysm measures 2.7 cm. Laboratory value shows white blood cell 5.2 hemoglobin 10.7 normal kidney function at the time Hemoccult was positive. She was started on GI prophylaxis admitted to the hospital will consult general surgery also consult vascular at this point for her aneurysm. REVIEW OF SYSTEMS: CONSTITUTIONAL: Well-developed elderly in mild respiratory distress. EYES: No icterus sclerae, no conjunctivitis. EARS, NOSE, MOUTH, THROAT, and FACE: No sore throat, lymphadenopathy, carotid bruits or deformity. RESPIRATORY: Positive shortness of breath cough and wheezes. CARDIOVASCULAR: Positive PND orthopnea palpitation. GASTROINTESTINAL: Abdominal discomfort with nausea no vomiting diarrhea constipation no GI bleed no distention or masses. GENITOURINARY: recurrent UTI with mild incontinence. INTEGUMENT/BREAST: Negative for any muscular injury with mild osteoarthritis.. HEMATOLOGIC/LYMPHATIC: Negative for bleed or purpura. MUSCULOSKELTAL: Generalized muscle and joint pain. NEURLOGICAL: No LOC, Sz or syncope, blurred vision dizziness or abnormality.. S light memory loss. BEHAVIORAL/PSYCH: Negative. ENDOCRINE: Negative. PHYSICAL EXAMINATION: General Appearance: Alert, elderly looks in no distress. Neck HEENT: Supple, no lymphadenopathy, no thyroid enlargement, no carotid bruits. Slight congestion and swelling the back of her throat. Lungs: Clear to auscultation with crackles in the bases positive rhonchi and slight increased wheezes on the right side. Chest Wall: Decreased expansion with deep inspiration no tenderness and no deformity was found on exam, no costochondral pain or discomfort. Heart: Regular rate and rhythm, S1, S2 normal, no murmur, rub or gallop. Back: Symmetric, no curvature, ROM normal, no CVA tenderness. Abdomen: Soft, non-tender, bowel sounds active all four quadrants, no masses, no organomegaly. Extremities: Trace edema decreased pulse dorsalis pedis bilaterally with mild arthritis and slight discoloration from the knee down. Pulses: 2+ and symmetric. Skin: Skin color, texture, tugor normal, no rashes or lesions. Neurologic: Alert oriented with slight confusion cranial nerves II through XII intact, positive generalized weakness still have slight weakness on the left side compared to the right side. ASSESSMENT AND PLAN: _Abdominal pain and acute diverticulitis: She will start patient on metronidazole and Zosyn for now will consult infectious disease and general surgery. _Severe diarrhea with possible C. difficile: Stool for C. difficile will be done waiting for the final. Patient medication and treatment if needed. _Large infrarenal aneurysm with iliac aneurysm as well will consult vascular surgery. _Severe generalized weakness and fatigue caused by severe bradycardia with a overall general condition including memory loss, age. Possibly sick sinus syndrome. Might need pacemaker which family are disagreeable to it at this point. _Low-grade iron deficiency anemia: Significantly decreased from before specially in her age and being on anticoagulation the possibility of gastrointestinal bleed is always high repeat CBC, continue proton pump inhibitor and 0 to do Hemoccult watch for any active GI bleed. _Paroxysmal atrial fibrillation: She is not in any suppressive agent pulse rates under control and sound but it is very slow to continue anticoagulation. _History of CVA: Had close significant problem with memory loss and cardiac c hange with abnormal balance gait tiredness fatigue and mobility problem. Which patient will continue to require help. _Hypertension: Blood pressure is well-controlled currently on amlodipine 10 mg a day, and continue isosorbide 30 mg a day still on diuretics. _History of seizure disorders: No active seizure activity at this point doing well stable has been off antiseizure. _Recent history of severe bradycardia declined going for pacemaker management for now we will continue watching patient in house on a Holter monitor. _COPD: No exacerbation at this point continue albuterol/ipratropium and Symbicort. 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 _Diastolic congestive heart failure: Remain on furosemide, Was supposed to be on angiotensin receptor product. _GI prophylaxis: Patient will be on Pepcid. _DVT prophylaxis: Knee-high MIKEY hose and she was on Eliquis which will be resumed. CODE STATUS: Full code. Admit patient to the inpatient service for more than 2 night stay. 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 Past Psychological History: Anxiety Smoking Status: Former smoker Past Alcohol Use History: None Reported Past Drug Use History: None Reported - Past Family History Brother(s) Family Medical History: Cancer Sister(s) Family Medical History: Cancer Mother Additional Family Medical History / Comment(s): enlarged heart Medications and Allergies Home Medications Medication Instructions Recorded Confirmed Type Pantoprazole [Protonix] 40 mg PO DAILY 04/11/18 09/05/23 History Albuterol Inhaler [Ventolin Hfa 2 puff INHALATION RT-Q6H PRN 04/29/22 09/05/23 History Inhaler] Apixaban [Eliquis] 2.5 mg PO BID 04/29/22 09/05/23 History DULoxetine HCL [Cymbalta] 30 mg PO DAILY 04/29/22 09/05/23 History Denosumab [Prolia] 60 mg SQ Q180D 04/29/22 09/05/23 History Furosemide [Lasix] 20 mg PO DAILY 04/29/22 09/05/23 History Isosorbide Mononitrate ER [Imdur] 30 mg PO DAILY 04/29/22 09/05/23 History Cholecalciferol [Vitamin D3 (25 25 mcg PO DAILY 09/30/22 09/05/23 History Mcg = 1000 Iu)] Ascorbic Acid [Vitamin C] 500 mg PO DAILY 10/27/22 09/05/23 History Acetaminophen-Codeine 300-30mg 1 tab PO BID PRN #4 tab 12/28/22 09/05/23 Rx [Tylenol w/codeine #3] Clopidogrel [Plavix] 75 mg PO DAILY 30 Days #30 tab 12/28/22 09/05/23 Rx Atorvastatin [Lipitor] 10 mg PO HS 03/04/23 09/05/23 History Ferrous Sulfate [Iron (65 MG 325 mg PO DAILY 03/04/23 09/05/23 History Elemental)] ALPRAZolam [Xanax] 0.25 mg PO TID PRN #60 tab 05/17/23 09/05/23 Rx Aspirin EC [Ecotrin Low Dose] 81 mg PO DAILY 08/01/23 09/05/23 History Cider Vinegar [Apple Cider Vinegar] 600 mg PO DAILY 08/01/23 09/05/23 History Melatonin 1 mg PO HS 08/01/23 09/05/23 History QUEtiapine [SEROquel] 25 mg PO HS 08/01/23 09/05/23 History Donepezil [Aricept] 5 mg PO HS 09/05/23 09/05/23 History amLODIPine [Norvasc] 10 mg PO DAILY 09/05/23 09/05/23 History Allergies Allergy/AdvReac Type Severity Reaction Status Date / Time No Known Allergies Allergy Verified 09/23/23 21:58 Physical Exam Vitals: Vital Signs Temp Pulse Resp BP Pulse Ox 09/24/23 05:00 72 21 125/58 99 09/24/23 04:00 67 20 132/61 98 09/24/23 03:00 68 17 133/59 99 09/24/23 02:00 72 18 127/58 98 09/24/23 01:14 68 18 127/58 99 09/24/23 00:13 71 14 124/58 99 09/23/23 21:58 97.3 F L 46 L 16 124/58 98 Intake and Output 09/23/23 09/23/23 09/24/23 14:59 22:59 06:59 Other: Weight 70.307 kg Results CBC & Chem 7: 09/23/23 22:48 09/23/23 22:48 Labs: Abnormal Lab Results - Last 24 Hours (Table) 09/23/23 09/23/23 09/23/23 Range/Units 22:48 22:48 22:48 Hgb 10.7 L (11.4-16.0) gm/dL MCHC 30.2 L (31.0-37.0) g/dL RDW 16.5 H (11.5-15.5) % Carbon Dioxide 34 H (22-30) mmol/L Total Protein 6.1 L (6.3-8.2) g/dL Stool Occult Blood Positive H (Negative)
[2023-09-25] MEDS: LORazepam 2 MG/ML INJ IV STA (03:23)
[2023-09-25 07:55] LABS: Anisocytosis Slight; HCT 38.5 % (34.0-46.0); Hypochromasia Marked; MCH 25.4 pg (25.0-35.0); MCHC 28.6 g/dL (31.0-37.0); Platelet Count 368 k/uL (150-450); RBC 4.33 m/uL (3.80-5.40); RDW 16.6 % (11.5-15.5)
[2023-09-25 08:43] LABS: ALT 9 U/L (4-34); African American GFR (CKD) 69 (>60 ml/min/1.73 sqM); Albumin 3.9 g/dL (3.5-5.0); Anion Gap 9 mmol/L; Blood Urea Nitrogen 13 mg/dL (7-17); Calcium 9.9 mg/dL (8.4-10.2); Carbon Dioxide 26 mmol/L (22-30); Chloride 107 mmol/L (98-107); Glucose 86 mg/dL (74-99); Non-African American GFR(CKD) 60 (>60 ml/min/1.73 sqM); Sodium 142 mmol/L (137-145); Total Bilirubin 0.8 mg/dL (0.2-1.3); Total Protein 6.5 g/dL (6.3-8.2)
[2023-09-25 08:47] LABS: AST 39 U/L (14-36); Alkaline Phosphatase 75 U/L (38-126); Potassium 4.2 mmol/L (3.5-5.1)
[2023-09-25] MEDS ORDERED: QUEtiapine 25 MG TAB PO PRN (09:00)
[2023-09-25] MEDS: CLOPIDOGREL 75 MG TAB PO SCH (11:49)
--- NOTE | 2023-09-25 13:43 | P.PN ---
Subjective Progress Note Date: 09/25/23 CHIEF COMPLAINT: Diverticulitis HISTORY OF PRESENT ILLNESS: Patient reports improvement in her abdominal pain. She denies any nausea or vomiting. Patient does have a bedside sitter. Afebrile. WBC 8.0 Hgb 11 stool for C. difficile negative PHYSICAL EXAM: VITAL SIGNS: Reviewed GENERAL: Well-developed in no acute distress. HEENT: No sclera icterus. Extraocular movements grossly intact. Moist buccal mucosa. Head is atraumatic, normocephalic. Hears conversational speech. No nasal drainage. NECK: Supple without lymphadenopathy. CHEST: Non-labored respirations and equal bilateral excursions. CARDIOVASCULAR: Palpable 2+ radial pulses. ABDOMEN: Soft. Nondistended. Nontender. MUSCULOSKELETAL: No clubbing or cyanosis. NEUROLOGIC: No focal or lateralizing signs. Cranial nerves II through XII grossly intact. SKIN: Well perfused. Good skin turgor. ASSESSMENT: 1. Acute sigmoid diverticulitis 2. Abdominal aortic aneurysm. Seen by vascular surgery. No surgical intervention planned. 3. Right common iliac artery aneurysm 4. History of CVA and carotid endartectomy 5. History of breast cancer PLAN: -No surgical invention planned -Advance diet to full liquids -Continue antibiotics -Recommend outpatient colonoscopy after treatment of acute diverticulitis Physician [employer] Supervisor note has been reviewed by physician. Signing provider agrees with the documented findings, assessment, and plan of care. Objective - Vital Signs Vital signs: Vital Signs Temp 97.3 F L 09/25/23 07:00 Pulse 80 09/25/23 08:00 Resp 17 09/25/23 08:00 BP 142/77 09/25/23 07:00 Pulse Ox 94 L 09/25/23 08:41 FiO2 Intake & Output 09/24/23 09/25/23 09/25/23 18:59 06:59 18:59 Intake Total 200 Balance 200 Intake: Oral 200 Other: Voiding Method Diaper Diaper Incontinent Incontinent # Voids 3 - Labs CBC & Chem 7: 09/25/23 07:35 09/25/23 07:35 Labs: Abnormal Lab Results - Last 24 Hours (Table) 09/25/23 09/25/23 Range/Units 07:35 07:35 Hgb 11.0 L (11.4-16.0) gm/dL MCHC 28.6 L (31.0-37.0) g/dL RDW 16.6 H (11.5-15.5) % AST 39 H (14-36) U/L
--- NOTE | 2023-09-25 15:03 | P.PN ---
Subjective Progress Note Date: 09/25/23 Principal diagnosis: Reason for follow-up is diverticulitis Patient is a 88-year-old -[place] female past medical history significant for hypertension hyperlipidemia osteoarthritis DVT dementia CVA TIA heart failure presenting to the hospital for evaluation of lower abdominal pain patient did have CT suspicious for diverticulitis prompting this consultation. On today's evaluation that is 09/25/2023, Patient is afebrile patient is currently on room air and denies having any shortness of breath, the patient denies any chest pain or cough, the patient denies any nausea vomiting did not have any abdominal pain did have some mucousy stool iron send specimen for C. difficile which came back negative. Patient white count is 8.0 creatinine is 0.8 electrolytes are normal Objective - Vital Signs Vital signs: Vital Signs Temp 97.3 F L 09/25/23 07:00 Pulse 80 09/25/23 08:00 Resp 17 09/25/23 08:00 BP 142/77 09/25/23 07:00 Pulse Ox 94 L 09/25/23 08:41 FiO2 Intake & Output 09/24/23 09/25/23 09/25/23 18:59 06:59 18:59 Intake Total 200 Balance 200 Intake: Oral 200 Other: Voiding Method Diaper Diaper Incontinent Incontinent # Voids 3 - Exam GENERAL DESCRIPTION: An elderly female lying in bed in no distress RESPIRATORY SYSTEM: Unlabored breathing , decreased breath sounds at bases HEART: S1 S2 regular rate and rhythm , ABDOMEN: Soft , no tenderness EXTREMITIES: No edema feet - Labs CBC & Chem 7: 09/25/23 07:35 09/25/23 07:35 Labs: Abnormal Lab Results - Last 24 Hours (Table) 09/25/23 09/25/23 Range/Units 07:35 07:35 Hgb 11.0 L (11.4-16.0) gm/dL MCHC 28.6 L (31.0-37.0) g/dL RDW 16.6 H (11.5-15.5) % AST 39 H (14-36) U/L Assessment and Plan (1) Diverticulitis Current Visit: Yes Status: Acute Code(s): K57.92 - DVTRCLI OF INTEST, PART UNSP, W/O PERF OR ABSCESS W/O BLEED SNOMED Code(s): 794177293 Plan: 1patient presented to the hospital with lower abdominal pain patient also complaining of frequent bowel movements every time she eats she has to the bathroom however denies having any loose/watery stools, patient did have CT abdominal pelvis concerning for diverticulitis did not show any evidence of colitis that being suspicious for C. difficile 2-patient stool for C. difficile came back negative 3-we will continue patient on n Zosyn and monitor clinical course closely Dictation was produced using [employer] dictation software. please excuse any grammatical, word or spelling errors. Time with Patient: Less than 30
[2023-09-25] MEDS: QUEtiapine 25 MG TAB PO SCH (19:46)
[2023-09-25] MEDS: ALPRAZolam 0.25 MG TAB PO PRN (19:46)
--- NOTE | 2023-09-26 05:19 | P.PN ---
Subjective Progress Note Date: 09/25/23 HISTORY OF PRESENT ILLNESS: 88-year-old with active medical history of COPD, CHF, A-fib, memory loss, recurrent UTI, iron deficiency anemia, A-fib, previous history of CVA, chronic neuropathy, mild PAD, atherosclerotic heart disease with recurrent chest pain and angina, severe bradycardia decline going for pacemaker recently, significant electrolyte abnormality imbalance, recurrent history of lower back pain and chronic arthritis, worsening mobility and significant decline in condition has been seeking family help on more regular basis who apparently presented to the emergency department with complaining of severe diarrhea nausea and vomiting for the last 2 days with much worsening symptoms associating with lower abdominal discomfort left lower quadrant discomfort as well. Was seen and assessed in the emergency department, CAT scan of the abdomen shows pancolitis with diverticulosis with mild stranding around the mid sigmoid diverticulum potentially mild noncomplicated diverticulitis, also have atherosclerosis with infrarenal abdominal aortic aneurysm measuring at 5.0 x 5.3 cm with right common iliac artery aneurysm measures 2.7 cm. Laboratory value shows white blood cell 5.2 hemoglobin 10.7 normal kidney function at the time Hemoccult was positive. She was started on GI prophylaxis admitted to the hospital will consult general surgery also consult vascular at this point for her aneurysm. 09/25/2023: No stool for C. difficile done yet, labs pending this morning, patient SEEN general surgery agree with the current finding of colitis no intervention required. Also seen vascular for her large aneurysm and iliac aneurysm required only surveillance. Infectious disease has switched her Augmentin to Zosyn which she agreed and remain on Flagyl for now to treat the diverticulitis. Patient is more confused in the hospital still having slight symptoms of diarrhea and abdominal pain will involve social service again discharge planning for patient worsening confusion abnormal behavior resume her donepezil, duloxetine and probably will resume Seroquel 25 mg at bedtime and will add probably smaller dose of Seroquel 50 mg twice a day as needed. REVIEW OF SYSTEMS: CONSTITUTIONAL: Well-developed elderly in mild respiratory distress. EYES: No icterus sclerae, no conjunctivitis. EARS, NOSE, MOUTH, THROAT, and FACE: No sore throat, lymphadenopathy, carotid bruits or deformity. RESPIRATORY: Positive shortness of breath cough and wheezes. CARDIOVASCULAR: Positive PND orthopnea palpitation. GASTROINTESTINAL: Abdominal discomfort with nausea no vomiting diarrhea constipation no GI bleed no distention or masses. GENITOURINARY: recurrent UTI with mild incontinence. INTEGUMENT/BREAST: Negative for any muscular injury with mild osteoarthritis.. HEMATOLOGIC/LYMPHATIC: Negative for bleed or purpura. MUSCULOSKELTAL: Generalized muscle and joint pain. NEURLOGICAL: No LOC, Sz or syncope, blurred vision dizziness or abnormality.. Slight memory loss. BEHAVIORAL/PSYCH: Negative. ENDOCRINE: Negative. PHYSICAL EXAMINATION: General Appearance: Alert, elderly looks in no distress. Neck HEENT: Supple, no lymphadenopathy, no thyroid enlargement, no carotid bruits. Slight congestion and swelling the back of her throat. Lungs: Clear to auscultation with crackles in the bases positive rhonchi and slight increased wheezes on the right side. Chest Wall: Decreased expansion with deep inspiration no tenderness and no deformity was found on exam, no costochondral pain or discomfort. Heart: Regular rate and rhythm, S1, S2 normal, no murmur, rub or gallop. Back: Symmetric, no curvature, ROM normal, no CVA tenderness. Abdomen: Soft, non-tender, bowel sounds active all four quadrants, no masses, no organomegaly. Extremities: Trace edema decreased pulse dorsalis pedis bilaterally with mild arthritis and slight discoloration from the knee down. Pulses: 2+ and symmetric. Skin: Skin color, texture, tugor normal, no rashes or lesions. Neurologic: Alert oriented with slight confusion cranial nerves II through XII intact, positive generalized weakness still have slight weakness on the left side compared to the right side. ASSESSMENT AND PLAN: _Abdominal pain and acute diverticulitis: She will start patient on metronidazole and Zosyn continue current management no sign of C. difficile so far but continue to treat acute diverticulitis. _Severe diarrhea with possible C. difficile: Culture still pending no finding at this point. _Acute panel infectious colitis and diverticulitis: Antibiotic was switched to Zosyn and Flagyl continue to see any worsening or improvement over time. _Large infrarenal aneurysm with iliac aneurysm as: Patient was seen vascular and will be going for surveillance annually mostly and to see vascular as an outpatient. _Severe generalized weakness and fatigue caused by severe bradycardia no p acemaker at this point per family request. _Low-grade iron deficiency anemia: Significantly decreased from before specially in her age and being on anticoagulation the possibility of gastrointestinal bleed is always high repeat CBC, continue proton pump inhibitor and 0 to do Hemoccult watch for any active GI bleed. _Paroxysmal atrial fibrillation: She is not in any suppressive agent pulse rates under control and sound but it is very slow to continue anticoagulation. _Advanced dementia: Resume her donepezil and will continue Seroquel nightly and probably 12.5 mg twice a day as needed. _History of CVA: Had close significant problem with memory loss and cardiac change with abnormal balance gait tiredness fatigue and mobility problem. Which patient will continue to require help. _Hypertension: Blood pressure is well-controlled currently on amlodipine 10 mg a day, and continue isosorbide 30 mg a day still on diuretics. _History of seizure disorders: No active seizure activity at this point doing well stable has been off antiseizure. _Recent history of severe bradycardia declined going for pacemaker management for now we will continue watching patient in house on a Holter monitor. _COPD: No exacerbation at this point continue albuterol/ipratropium and Symbicort. 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 _Diastolic congestive heart failure: Remain on furosemide, Was supposed to be on angiotensin receptor product. Discussion: Patient was seen in the hospital room, continue to have slight discomfort but better than before no acute bleed at this point, awaiting for lab this morning no intervention no colonoscopy is required will still try to out of do C. difficile culture make sure this is not C. difficile. Objective - Vital Signs Vital signs: Vital Signs Temp 97.8 F 09/24/23 16:49 Pulse 65 09/25/23 02:00 Resp 17 09/25/23 02:00 BP 144/104 09/25/23 02:00 Pulse Ox 93 L 09/25/23 02:00 FiO2 Intake & Output 09/24/23 09/24/23 09/25/23 06:59 18:59 06:59 Intake Total 200 Balance 200 Weight 70.307 kg Intake: Oral 200 Other: Voiding Method Diaper Incontinent - Labs CBC & Chem 7: 09/23/23 22:48 09/23/23 22:48
--- NOTE | 2023-09-26 14:36 | P.PN ---
Subjective Progress Note Date: 09/26/23 CHIEF COMPLAINT: Diverticulitis HISTORY OF PRESENT ILLNESS: Patient denies any abdominal pain. Denies any nausea or vomiting. Patient did have a bowel movement. Patient does have a bedside sitter. Afebrile. They are working on discharging patient today. PHYSICAL EXAM: VITAL SIGNS: Reviewed GENERAL: Well-developed in no acute distress. HEENT: No sclera icterus. Extraocular movements grossly intact. Moist buccal mucosa. Head is atraumatic, normocephalic. Hears conversational speech. No nasal drainage. NECK: Supple without lymphadenopathy. CHEST: Non-labored respirations and equal bilateral excursions. CARDIOVASCULAR: Palpable 2+ radial pulses. ABDOMEN: Soft. Nondistended. Nontender. MUSCULOSKELETAL: No clubbing or cyanosis. NEUROLOGIC: No focal or lateralizing signs. Cranial nerves II through XII grossly intact. SKIN: Well perfused. Good skin turgor. ASSESSMENT: 1. Acute sigmoid diverticulitis improved 2. Abdominal aortic aneurysm. Seen by vascular surgery. No surgical intervention planned. 3. Right common iliac artery aneurysm 4. History of CVA and carotid endartectomy 5. History of breast cancer PLAN: -No surgical invention planned -Patient can be discharge from surgical standpoint -Advance diet to regular -Discharge antibiotics per medicine service -Recommend outpatient colonoscopy after treatment of acute diverticulitis Physician Head Of [employer]quisitions note has been reviewed by physician. Signing provider agrees with the documented findings, assessment, and plan of care. Objective - Vital Signs Vital signs: Vital Signs Temp 97.6 F 09/26/23 07:00 Pulse 45 L 09/26/23 07:00 Resp 17 09/26/23 07:00 BP 117/60 09/26/23 07:00 Pulse Ox 94 L 09/26/23 07:48 FiO2 Intake & Output 09/25/23 09/26/23 09/26/23 18:59 06:59 18:59 Intake Total 0 Balance 0 Weight 70.307 kg Intake: Oral 0 Other: Voiding Method Diaper Diaper Incontinent Incontinent # Voids 3 1 # Bowel Movements 1 - Labs CBC & Chem 7: 09/25/23 07:35 09/25/23 07:35
[2023-09-26 14:39] VITALS: BP 91/48; PULSE 64; RESP 16; TEMP 98.1
--- NOTE | 2023-09-27 14:35 | P.PN ---
Subjective Progress Note Date: 09/26/23 Principal diagnosis: Reason for follow-up is diverticulitis Patient is a 88-year-old -Luxembourger female past medical history significant for hypertension hyperlipidemia osteoarthritis DVT dementia CVA TIA heart failure presenting to the hospital for evaluation of lower abdominal pain patient did have CT suspicious for diverticulitis prompting this consultation. On today's evaluation that is 09/26/2023, patient has been afebrile, patient is breathing comfortably and is currently on 2 L current oxygen patient denies having any significant cough no chest pain shortness of breath, patient denies nausea vomiting abdominal pain has decreased and denies any worsening diarrhea. Patient is due for significant back negative no CBC was done today Objective - Vital Signs Vital signs: Vital Signs Temp 97.6 F 09/26/23 07:00 Pulse 45 L 09/26/23 07:00 Resp 17 09/26/23 07:00 BP 117/60 09/26/23 07:00 Pulse Ox 94 L 09/26/23 07:48 FiO2 Intake & Output 09/25/23 09/26/23 09/26/23 18:59 06:59 18:59 Intake Total 0 Balance 0 Weight 70.307 kg Intake: Oral 0 Other: Voiding Method Diaper Diaper Incontinent Incontinent # Voids 3 1 # Bowel Movements 1 - Exam GENERAL DESCRIPTION: An elderly female lying in bed in no distress RESPIRATORY SYSTEM: Unlabored breathing , decreased breath sounds at bases HEART: S1 S2 regular rate and rhythm , ABDOMEN: Soft , no tenderness EXTREMITIES: No edema feet - Labs CBC & Chem 7: 09/25/23 07:35 09/25/23 07:35 Assessment and Plan (1) Diverticulitis Status: Acute Code(s): K57.92 - DVTRCLI OF INTEST, PART UNSP, W/O PERF OR ABSCESS W/O BLEED SNOMED Code(s): 796710424 Plan: 1patient presented to the hospital with lower abdominal pain patient also complaining of frequent bowel movements every time she eats she has to the bathroom however denies having any loose/watery stools, patient did have CT abdominal pelvis concerning for diverticulitis did not show any evidence of c olitis that being suspicious for C. difficile 2-patient stool for C. difficile came back negative, patient seem to have shown clinical improvement on Zosyn to continue while inpatient finishing therapy with oral antibiotics Dictation was produced using [employer] dictation software. please excuse any grammatical, word or spelling errors. Time with Patient: Less than 30
== END 2023-09-26 16:21 | disposition home health service (06) ==
LOC: EC 21:55 → 6NMEDSUR 09-24 02:21 → 1SOBS 09-24 15:34
PROVIDERS: ADMIT Internal Medicine Geriatric Medicine; ATTEND Internal Medicine Geriatric Medicine
DX: K57.32 Diverticulitis of large intestine without perforation or abscess without bleeding (principal); I71.43 Infrarenal abdominal aortic aneurysm, without rupture; I72.3 Aneurysm of iliac artery; R19.7 Diarrhea, unspecified; R53.1 Weakness; R53.83 Other fatigue; R00.1 Bradycardia, unspecified; D50.9 Iron deficiency anemia, unspecified; I11.0 Hypertensive heart disease with heart failure; I50.30 Unspecified diastolic (congestive) heart failure; I25.10 Atherosclerotic heart disease of native coronary artery without angina pectoris; J44.9 Chronic obstructive pulmonary disease, unspecified; F03.94 Unspecified dementia, unspecified severity, with anxiety; E78.5 Hyperlipidemia, unspecified; I48.0 Paroxysmal atrial fibrillation; I69.354 Hemiplegia and hemiparesis following cerebral infarction affecting left non-dominant side; Z85.3 Personal history of malignant neoplasm of breast; Z86.718 Personal history of other venous thrombosis and embolism; Z87.891 Personal history of nicotine dependence; Z90.49 Acquired absence of other specified parts of digestive tract; Z79.899 Other long term (current) drug therapy; Z79.01 Long term (current) use of anticoagulants; Z79.82 Long term (current) use of aspirin; Z79.02 Long term (current) use of antithrombotics/antiplatelets
CPT/HCPCS: 96361 ×2; 96366 ×4; 96367 ×2; 96375; 96365; 99285; 36415; 94760 ×2; 93005; 97162; 97166; 80053 ×2; 85025; 85027; 82272; 87324; 74176; G0378 ×4; J2543 ×3; J2060; J1836 ×3

== ENCOUNTER 2023-09-26 18:08 | Inpatient (IN) | payer MEDICARE, BC ==
--- NOTE | 2023-09-26 18:58 | ED ---
Weakness HPI - General Stated complaint: Hypotension Time Seen by Provider: 09/26/23 18:15 Source: EMS Mode of arrival: EMS Limitations: no limitations - History of Present Illness Initial comments: 88-year-old female with past medical history of dementia who presents emergency department for weakness. Patient was just discharged from our facility today. Son took her home and states that he was concerned as the patient could not ambulate out of the car with her walker. Patient almost fell multiple times. He tried to change her at home and was having difficulty getting her dressed. Patient started to feel nauseated as if she was going to throw up. EMS was [facility]. They found the patient to have a blood pressure of 80/40. Patient was just recently discharged from the hospital for diverticulitis - Related Data Home Medications Medication Instructions Recorded Confirmed Pantoprazole [Protonix] 40 mg PO DAILY 04/11/18 09/27/23 Albuterol Inhaler [Ventolin Hfa 2 puff INHALATION RT-Q6H PRN 04/29/22 09/27/23 Inhaler] Apixaban [Eliquis] 2.5 mg PO BID 04/29/22 09/27/23 DULoxetine HCL [Cymbalta] 30 mg PO DAILY 04/29/22 09/27/23 Denosumab [Prolia] 60 mg SQ Q180D 04/29/22 09/27/23 Furosemide [Lasix] 20 mg PO DAILY 04/29/22 09/27/23 Isosorbide Mononitrate ER [Imdur] 30 mg PO DAILY 04/29/22 09/27/23 Cholecalciferol [Vitamin D3 (25 25 mcg PO DAILY 09/30/22 09/27/23 Mcg = 1000 Iu)] Ascorbic Acid [Vitamin C] 500 mg PO DAILY 10/27/22 09/27/23 Atorvastatin [Lipitor] 10 mg PO HS 03/04/23 09/27/23 Ferrous Sulfate [Iron (65 MG 325 mg PO DAILY 03/04/23 09/27/23 Elemental)] Aspirin EC [Ecotrin Low Dose] 81 mg PO DAILY 08/01/23 09/27/23 Cider Vinegar [Apple Cider Vinegar] 600 mg PO DAILY 08/01/23 09/27/23 Melatonin 1 mg PO HS 08/01/23 09/27/23 QUEtiapine [SEROquel] 25 mg PO HS 08/01/23 09/27/23 Donepezil [Aricept] 5 mg PO HS 09/05/23 09/27/23 amLODIPine [Norvasc] 10 mg PO DAILY 09/05/23 09/27/23 Previous Rx's Medication Instructions Recorded Acetaminophen-Codeine 300-30mg 1 tab PO BID PRN #4 tab 12/28/22 [Tylenol w/codeine #3] Clopidogrel [Plavix] 75 mg PO DAILY 30 Days #30 tab 12/28/22 ALPRAZolam [Xanax] 0.25 mg PO TID PRN #60 tab 05/17/23 Ciprofloxacin HCl [Cipro] 250 mg PO Q12HR 5 Days #10 tab 09/26/23 metroNIDAZOLE 250 mg PO AC-TID #21 tablet 09/26/23 Acetaminophen-Codeine 300-30mg 1 tab PO Q6H PRN 3 Days #12 tablet 10/26/23 [Tylenol w/codeine #3] Lidocaine 5% Patch [Lidoderm 5% 1 patch TOPICAL DAILY PRN #30 patch 10/26/23 Patch] Allergies Allergy/AdvReac Type Severity Reaction Status Date / Time No Known Allergies Allergy Verified 09/27/23 10:12 Review of Systems ROS Statement: Those systems with pertinent positive or pertinent negative responses have been documented in the HPI. ROS Other: All systems not noted in ROS Statement are negative. 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 Past Psychological History: Anxiety Smoking Status: Former smoker Past Alcohol Use History: None Reported Past Drug Use History: None Reported - Past Family History Brother(s) Family Medical History: Cancer Sister(s) Family Medical History: Cancer Mother Additional Family Medical History / Comment(s): enlarged heart General Exam Limitations: no limitations General appearance: alert, in no apparent distress Head exam: Present: atraumatic, normocephalic, normal inspection Eye exam: Present: normal appearance, PERRL, EOMI. Absent: scleral icterus, conjunctival injection, periorbital swelling ENT exam: Present: normal exam, mucous membranes moist Neck exam: Present: normal inspection. Absent: tenderness, meningismus, lymphadenopathy Respiratory exam: Present: normal lung sounds bilaterally. Absent: respiratory distress, wheezes, rales, rhonchi, stridor Cardiovascular Exam: Present: regular rate, normal rhythm, normal heart sounds. Absent: systolic murmur, diastolic murmur, rubs, gallop, clicks GI/Abdominal exam: Present: soft, normal bowel sounds. Absent: distended, tenderness, guarding, rebound, rigid Extremities exam: Present: normal inspection, full ROM, normal capillary refill. Absent: tenderness, pedal edema, joint swelling, calf tenderness Back exam: Present: normal inspection Neurological exam: Present: alert, oriented X3, CN II-XII intact Psychiatric exam: Present: normal affect, normal mood Skin exam: Present: warm, dry, intact, normal color. Absent: rash Course Vital Signs 09/26/23 09/26/23 09/27/23 18:12 22:03 01:21 Temperature 98.6 F Pulse Rate 83 80 Pulse Rate [ 81 Sitting] Pulse Rate [ 91 Standing] Pulse Rate [ 77 Supine] Respiratory 20 18 Rate Blood Pressure 100/56 143/71 Blood Pressure 127/72 [Left Arm Sitting] Blood Pressure 128/69 [Left Arm Standing] Blood Pressure 138/72 [Left Arm Supine] O2 Sat by Pulse 97 99 Oximetry 09/27/23 09/27/23 09/27/23 03:18 06:04 06:55 Temperature Pulse Rate 51 L 41 L 73 Pulse Rate [ Sitting] Pulse Rate [ Standing] Pulse Rate [ Supine] Respiratory 18 16 18 Rate Blood Pressure 104/57 125/50 125/50 Blood Pressure [Left Arm Sitting] Blood Pressure [Left Arm Standing] Blood Pressure [Left Arm Supine] O2 Sat by Pulse 98 100 98 Oximetry 09/27/23 09/27/23 11:18 15:21 Temperature 97.8 F Pulse Rate 55 L 61 Pulse Rate [ Sitting] Pulse Rate [ Standing] Pulse Rate [ Supine] Respiratory 14 18 Rate Blood Pressure 128/54 120/56 Blood Pressure [Left Arm Sitting] Blood Pressure [Left Arm Standing] Blood Pressure [Left Arm Supine] O2 Sat by Pulse 99 96 Oximetry Medical Decision Making - Medical Decision Making Was pt. sent in by a medical professional or institution (, [facility], CLIENT SERVICES ADMINISTRATOR, urgent care, hospital, or custodial...) When possible be specific @ -No Did you speak to anyone other than the patient for history (EMS, parent, family, police, friend...)? What history was obtained from this source @ -Spoke with EMS for history. Also spoke with the patient's son Did you review nursing and triage notes (agree or disagree)? Why? @ -I reviewed and agree with nursing and triage notes Were old charts reviewed (outside hosp., previous admission, EMS record, old EKG, old radiological studies, urgent care reports/EKG's, custodial records)? Report findings @ -No old charts were reviewed Differential Diagnosis (chest pain, altered mental status, abdominal pain women, abdominal pain men, vaginal bleeding, weakness, fever, dyspnea, syncope, headache, dizziness, GI bleed, back pain, seizure, CVA, palpatations, mental health, musculoskeletal)? @ -Differential Weakness: Hypoglycemia, shock, sepsis, hyponatremia, anemia, infection, PA, ETOH, adverse medicine reaction, overdose, stroke, this is not meant to be an all-inclusive list. EKG interpreted by me (3pts min.). @ -Yes and demonstrates sinus rhythm with a rate of 85. CT interval 242. QRS 80. QTc of 426. First-degree AV block. No acute ST segment elevations or depressions X-rays interpreted by me (1pt min.). @ -Yes and demonstrates no acute intra-abdominal process CT interpreted by me (1pt min.). @ -None done U/S interpreted by me (1pt. min.). @ -None done What testing was considered but not performed or refused? (CT, X-rays, U/S, labs)? Why? @ -None What meds were considered but not given or refused? Why? @ -None Did you discuss the management of the patient with other professionals (pr ofessionals i.e. Dr., PA, CLIENT SERVICES ADMINISTRATOR, lab, RT, psych nurse, social worker psychiatric, annual giving manager, teacher, motorcycle police officer, medical case worker)? Give summary @ -Spoke with Dr. Saha for admission Was smoking cessation discussed for >3mins.? @ -No Was critical care preformed (if so, how long)? @ -No Were there social determinants of health that impacted care today? How? (Homelessness, low income, unemployed, alcoholism, drug addiction, transportation, low edu. Level, literacy, decrease access to med. care, half-way, rehab)? @ -No Was there de-escalation of care discussed even if they declined (Discuss DNR or withdrawal of care, Hospice)? DNR status @ -No What co-morbidities impacted this encounter? (DM, HTN, Smoking, COPD, CAD, Cancer, CVA, ARF, Chemo, Hep., AIDS, mental health diagnosis, sleep apnea, morbid obesity)? @ -Dementia, diverticulitis Was patient admitted / discharged? Hospital course, mention meds given and route, prescriptions, significant lab abnormalities, going to OR and other pertinent info. @ -Upon arrival patient seen and evaluated in room 2. Thorough history and physical exam was performed. IV access was established. Laboratory studies are conducted. Patient has weakness. Son is unable to care for the patient. I did call to speak with Dr. Saha in regards to readmitting the patient for which she was agreeable Undiagnosed new problem with uncertain prognosis? @ -No Drug Therapy requiring intensive monitoring for toxicity (Heparin, Nitro, Insulin, Cardizem)? @ -No Were any procedures done? @ -No Diagnosis/symptom? @ -Weakness, inability to ambulate, hypomagnesemia Acute, or Chronic, or Acute on Chronic? @ -Acute on chronic Uncomplicated (without systemic symptoms) or Complicated (systemic symptoms)? @ -Complicated Side effects of treatment? @ -No Exacerbation, Progression, or Severe Exacerbation? @ -No Poses a threat to life or bodily function? How? (Chest pain, USA, PA, pneumonia, PE, COPD, DKA, ARF, appy, cholecystitis, CVA, Diverticulitis, Homicidal, Suicidal, threat to staff... and all critical care pts) @ -No - Lab Data Result diagrams: 09/27/23 07:07 09/27/23 07:07 Lab Results 09/26/23 09/26/2324 Range/Units 19:19 19:19 19:19 WBC 5.7 (3.8-10.6) k/uL RBC 4.25 (3.80-5.40) m/uL Hgb 10.9 L (11.4-16.0) gm/dL Hct 36.5 (34.0-46.0) % MCV 85.8 (80.0-100.0) fL MCH 25.7 (25.0-35.0) pg MCHC 30.0 L (31.0-37.0) g/dL RDW 16.4 H (11.5-15.5) % Plt Count 360 (150-450) k/uL MPV 6.8 Neutrophils % 74 % Lymphocytes % 17 % Monocytes % 6 % Eosinophils % 3 % Basophils % 1 % Neutrophils # 4.2 (1.3-7.7) k/uL Lymphocytes # 1.0 (1.0-4.8) k/uL Monocytes # 0.3 (0-1.0) k/uL Eosinophils # 0.1 (0-0.7) k/uL Basophils # 0.0 (0-0.2) k/uL Hypochromasia Marked Anisocytosis Slight Sodium 138 (137-145) mmol/L Potassium 5.7 H (3.5-5.1) mmol/L Chloride 102 (98-107) mmol/L Carbon Dioxide 29 (22-30) mmol/L Anion Gap 7 mmol/L BUN 16 (7-17) mg/dL Creatinine 0.89 (0.52-1.04) mg/dL Est GFR (CKD-EPI)AfAm 67 (>60 ml/min/1.73 sqM) Est GFR (CKD-EPI)NonAf 58 (>60 ml/min/1.73 sqM) Glucose 78 (74-99) mg/dL Lactic Ac Sepsis Rflx Plasma Lactic Acid Jaylon 2.2 H* (0.7-2.0) mmol/L Calcium 9.4 (8.4-10.2) mg/dL Magnesium 1.3 L (1.6-2.3) mg/dL Total Bilirubin 1.4 H (0.2-1.3) mg/dL AST 58 H (14-36) U/L ALT 11 (4-34) U/L Alkaline Phosphatase 52 (38-126) U/L Total Protein 6.4 (6.3-8.2) g/dL Albumin 3.8 (3.5-5.0) g/dL 09/26/23 09/26/23 Range/Units 20:01 22:12 WBC (3.8-10.6) k/uL RBC (3.80-5.40) m/uL Hgb (11.4-16.0) gm/dL Hct (34.0-46.0) % MCV (80.0-100.0) fL MCH (25.0-35.0) pg MCHC (31.0-37.0) g/dL RDW (11.5-15.5) % Plt Count (150-450) k/uL MPV Neutrophils % % Lymphocytes % % Monocytes % % Eosinophils % % Basophils % % Neutrophils # (1.3-7.7) k/uL Lymphocytes # (1.0-4.8) k/uL Monocytes # (0-1.0) k/uL Eosinophils # (0-0.7) k/uL Basophils # (0-0.2) k/uL Hypochromasia Anisocytosis Sodium (137-145) mmol/L Potassium (3.5-5.1) mmol/L Chloride (98-107) mmol/L Carbon Dioxide (22-30) mmol/L Anion Gap mmol/L BUN (7-17) mg/dL Creatinine (0.52-1.04) mg/dL Est GFR (CKD-EPI)AfAm (>60 ml/min/1.73 sqM) Est GFR (CKD-EPI)NonAf (>60 ml/min/1.73 sqM) Glucose (74-99) mg/dL Lactic Ac Sepsis Rflx Y Plasma Lactic Acid Jaylon 1.4 (0.7-2.0) mmol/L Calcium (8.4-10.2) mg/dL Magnesium (1.6-2.3) mg/dL Total Bilirubin (0.2-1.3) mg/dL AST (14-36) U/L ALT (4-34) U/L Alkaline Phosphatase (38-126) U/L Total Protein (6.3-8.2) g/dL Albumin (3.5-5.0) g/dL Disposition Clinical Impression: Generalized weakness, Debility, Inability to walk, Hypomagnesemia Disposition: ADMITTED IP TO THIS [facility] Condition: Stable Is patient prescribed a controlled substance at d/c from ED?: No Time of Disposition: 23:07 Decision to Admit Reason: Admit from EC Decision Date: 09/26/23 Decision Time: 23:07
[2023-09-26] MEDS: SODIUM CHLORIDE 0.9% 500 ML 500 ML IV STA (19:19)
[2023-09-26 19:42] LABS: ALT 11 U/L (4-34); African American GFR (CKD) 67 (>60 ml/min/1.73 sqM); Albumin 3.8 g/dL (3.5-5.0); Anion Gap 7 mmol/L; Blood Urea Nitrogen 16 mg/dL (7-17); Calcium 9.4 mg/dL (8.4-10.2); Carbon Dioxide 29 mmol/L (22-30); Chloride 102 mmol/L (98-107); Glucose 78 mg/dL (74-99); Magnesium 1.3 mg/dL (1.6-2.3); Non-African American GFR(CKD) 58 (>60 ml/min/1.73 sqM); Sodium 138 mmol/L (137-145); Total Protein 6.4 g/dL (6.3-8.2)
[2023-09-26 19:44] LABS: Anisocytosis Slight; Basophils % (A) 1 %; Eosinophils # (A) 0.1 k/uL (0-0.7); Eosinophils % (A) 3 %; HCT 36.5 % (34.0-46.0); HGB 10.9 gm/dL (11.4-16.0); Hypochromasia Marked; Lymphocytes % (A) 17 %; MCH 25.7 pg (25.0-35.0); MCV 85.8 fL (80.0-100.0); Mean Platelet Volume 6.8; Monocytes # (A) 0.3 k/uL (0-1.0); Monocytes % (A) 6 %; Neutrophils # (A) 4.2 k/uL (1.3-7.7); Neutrophils % (A) 74 %; Platelet Count 360 k/uL (150-450); RBC 4.25 m/uL (3.80-5.40); RDW 16.4 % (11.5-15.5); WBC 5.7 k/uL (3.8-10.6)
[2023-09-26 19:46] LABS: AST 58 U/L (14-36); Potassium 5.7 mmol/L (3.5-5.1)
[2023-09-26 19:47] LABS: Alkaline Phosphatase 52 U/L (38-126); Total Bilirubin 1.4 mg/dL (0.2-1.3)
--- NOTE | 2023-09-26 21:04 | XR ---
EXAMINATION TYPE: XR KUB DATE OF EXAM: 09/26/2023 7:52 PM CLINICAL INDICATION:Female, 88 years old with history of abd pain; [facility] COMPARISON: None. TECHNIQUE: Frontal radiographic views of the abdomen was obtained. FINDINGS: Post surgical changes of the spine. Nonspecific nonobstructive bowel gas pattern appreciate d. Surgical clips are seen in the right upper quadrant. Degenerative changes of the bony pelvis and b ilateral hips. No acute fractures or dislocations. IMPRESSION: No acute fractures or acute intra-abdominal abnormality appreciated.
[2023-09-26] MEDS ORDERED: ACETAMINOPHEN TAB 325 MG TAB PO PRN (23:18)
[2023-09-26] MEDS ORDERED: NALOXONE 0.4 MG/ML 1 ML VIAL IV PRN (23:18)
[2023-09-26] MEDS ORDERED: ALBUTEROL NEBULIZED 2.5 MG/3 ML INHALATION PRN (23:24)
[2023-09-26] MEDS ORDERED: Acetaminophen-Codeine 300-30mg TAB PO PRN (23:24)
[2023-09-27] MEDS: DONEPEZIL 5 MG TAB PO SCH (01:25)
[2023-09-27] MEDS: MELATONIN 1 MG TAB PO SCH (01:33)
[2023-09-27] MEDS: ATORVASTATIN 10 MG TAB PO SCH (01:34)
[2023-09-27] MEDS: QUEtiapine 25 MG TAB PO SCH (01:34)
[2023-09-27] MEDS: CIPROFLOXACIN HCL 250 MG TAB PO SCH (01:34)
[2023-09-27] MEDS: MAGNESIUM SULFATE-D5W PMX 1 GM in DEXTROSE/WATER 1 100ML.BAG IVPB SCH (01:35)
[2023-09-27 08:11] LABS: Anisocytosis Slight; Basophils # (A) 0.1 k/uL (0-0.2); Basophils % (A) 1 %; Eosinophils # (A) 0.3 k/uL (0-0.7); Eosinophils % (A) 4 %; HCT 32.6 % (34.0-46.0); HGB 9.8 gm/dL (11.4-16.0); Hypochromasia Marked; Lymphocytes # (A) 1.8 k/uL (1.0-4.8); Lymphocytes % (A) 29 %; MCH 26.5 pg (25.0-35.0); MCHC 30.1 g/dL (31.0-37.0); MCV 87.9 fL (80.0-100.0); Mean Platelet Volume 7.2; Monocytes # (A) 0.5 k/uL (0-1.0); Monocytes % (A) 8 %; Neutrophils # (A) 3.6 k/uL (1.3-7.7); Neutrophils % (A) 56 %; Platelet Count 286 k/uL (150-450); RBC 3.71 m/uL (3.80-5.40); RDW 16.6 % (11.5-15.5); WBC 6.4 k/uL (3.8-10.6)
[2023-09-27] MEDS: ISOSORBIDE MONONITRATE ER 30 MG TAB.ER.24H PO SCH (08:13)
[2023-09-27] MEDS: PANTOPRAZOLE 40 MG TABLET PO SCH (08:13)
[2023-09-27] MEDS: metroNIDAZOLE 250 MG TABLET PO SCH (08:13)
[2023-09-27] MEDS: FERROUS SULFATE 325 MG TAB PO SCH (08:13)
[2023-09-27] MEDS: APIXABAN 2.5 MG TABLET PO SCH (08:13)
[2023-09-27] MEDS: DULoxetine HCL 30 MG CAPSULE.DR PO SCH (08:13)
[2023-09-27] MEDS: FUROSEMIDE 20 MG TAB PO SCH (08:14)
[2023-09-27] MEDS: CLOPIDOGREL 75 MG TAB PO SCH (08:14)
[2023-09-27] MEDS: amLODIPine 10 MG TAB PO SCH (08:14)
[2023-09-27 08:24] LABS: African American GFR (CKD) >90 (>60 ml/min/1.73 sqM); Anion Gap 8 mmol/L; Blood Urea Nitrogen 15 mg/dL (7-17); Calcium 9.4 mg/dL (8.4-10.2); Carbon Dioxide 29 mmol/L (22-30); Chloride 103 mmol/L (98-107); Glucose 74 mg/dL (74-99); Magnesium 2.1 mg/dL (1.6-2.3); Non-African American GFR(CKD) 78 (>60 ml/min/1.73 sqM); Potassium 3.1 mmol/L (3.5-5.1); Sodium 140 mmol/L (137-145)
--- NOTE | 2023-09-27 17:42 | P.HPIM ---
History of Present Illness H&P Date: 09/26/23 HISTORY OF PRESENT ILLNESS: 88-year-old with active medical history of COPD, CHF, A-fib, memory loss, recurrent UTI, iron deficiency anemia, A-fib, previous history of CVA, chronic neuropathy, mild PAD, atherosclerotic heart disease with recurrent chest pain and angina, severe bradycardia decline going for pacemaker recently, significant electrolyte abnormality imbalance, recurrent history of lower back pain and chronic arthritis, worsening mobility and significant decline in condition has been seeking family help on more regular basis She was hospitalized last few days with intractable diarrhea with nausea and vomiting with CAT scan of the abdomen showed pancolitis and diverticulitis was started on IV antibiotics with surgical consultation conclusion that she had colitis and diverticulitis only mostly infectious colitis was treated with Flagyl and ciprofloxacin did not require any surgical intervention and symptoms had ceased completely last 48 hours prior to discharge. The patient had severe episode of confusion or worsening dementia while she was in the hospital and require sitter for the whole time. Was stabilized and seek help with social service contacting family to see if need any further arrangement that contacting family last admission about patient needed more replacement which has been rejected by patient and her family repeatedly. Even the plan for physical therapy and ambulation was declined by patient throughout her hospitalization this last time. Patient was discharged early today in stable condition medically apparently get home and family needed to help patient with any activity she has not been not able to ambulate and walk independently with her walker without at least 1 person research assistant and showing significant weakness. Family called 911 and brought patient back to the hospital for the severe generalized weakness and not ability to ambulate and walk. Her workup began medically came back to be negative the patient had advanced dementia generalized weakness mostly age, arthritis, and medical condition related. Will require more physical therapy but patient therapy and require more placement or at least having to do custodial rehab for help. Patient was admitted to the hospital mostly question at the time to do physical therapy and again meet with family to talk all over but possibility of placement versus rehab till at least patient is able to move independently safe if this will ever happen. REVIEW OF SYSTEMS: CONSTITUTIONAL: Well-developed elderly in mild respiratory distress. EYES: No icterus sclerae, no conjunctivitis. EARS, NOSE, MOUTH, THROAT, and FACE: No sore throat, lymphadenopathy, carotid bruits or deformity. RESPIRATORY: Positive shortness of breath cough and wheezes. CARDIOVASCULAR: Positive PND orthopnea palpitation. GASTROINTESTINAL: Abdominal discomfort with nausea no vomiting diarrhea constipation no GI bleed no distention or masses. GENITOURINARY: recurrent UTI with mild incontinence. INTEGUMENT/BREAST: Negative for any muscular injury with mild osteoarthritis.. HEMATOLOGIC/LYMPHATIC: Negative for bleed or purpura. MUSCULOSKELTAL: Generalized muscle and joint pain. The patient require more than 1 person assistance with any more help. NEURLOGICAL: No LOC, Sz or syncope, blurred vision dizziness or abnormality.. Significant memory loss and confusion BEHAVIORAL/PSYCH: Negative. ENDOCRINE: Negative. PHYSICAL EXAMINATION: General Appearance: Alert, elderly looks in no distress. Neck HEENT: Supple, no lymphadenopathy, no thyroid enlargement, no carotid bruits. Slight congestion and swelling the back of her throat. Lungs: Clear to auscultation with crackles in the bases positive rhonchi and slight increased wheezes on the right side. Chest Wall: Decreased expansion with deep inspiration no tenderness and no deformity was found on exam, no costochondral pain or discomfort. Heart: Regular rate and rhythm, S1, S2 normal, no murmur, rub or gallop. Slight arrhythmia and mild bradycardia. Back: Symmetric, no curvature, ROM normal, no CVA tenderness. Abdomen: Soft, non-tender, bowel sounds active all four quadrants, no masses, no organomegaly. Extremities: Trace edema decreased pulse dorsalis pedis bilaterally with mild arthritis and slight discoloration from the knee down. Pulses: 2+ and symmetric. Skin: Skin color, texture, tugor normal, no rashes or lesions. Neurologic: Alert severely confused cranial nerves II 12 still moving all 4 extremity has severe problems with coordination, not been able to ambulate and walk stand up on her own. ASSESSMENT AND PLAN: _Severe physical debility: Combination of generalized arthritis, worsening memory loss, overall decreased mobility with her overall general condition. With the 2 recent hospitalization for GI bleed and severe bradycardia with sick sinus syndrome probably aggravate the condition as well. Start physical therapy and Occupational Therapysocial worker to help at least making plan for placement in SNF or rehab. _Altered mental status with severe confusion: With much worsening dementia mostly Alzheimer disease affected by her current medical condition. _Recent pancolitis: Was infectious colitis was started on metronidazole and Cipro after leaving the hospital while she was on Zosyn. No further diarrhea at this point. _Recent acute diverticulitis: Will finish the full course of Cipro and Flagyl for now. _Large infrarenal aneurysm with iliac aneurysm as well will consult vascular surgery. _Severe generalized weakness and fatigue caused by severe bradycardia with a overall general condition including memory loss, age. Possibly sick sinus syndrome. Might need pacemaker which family are disagreeable to it at this point. _Recent history of severe bradycardia declined going for pacemaker management for now we will continue watching patient in house on a Holter monitor. _History of seizure disorders: No active seizure activity at this point doing well stable has been off antiseizure. _Paroxysmal atrial fibrillation: She is not in any suppressive agent pulse rates under control and sound but it is very slow to continue anticoagulation. _History of CVA: Had close significant problem with memory loss and cardiac change with abnormal balance gait tiredness fatigue and mobility problem. Which patient will continue to require help. _Hypertension: Blood pressure is well-controlled currently on amlodipine 10 mg a day, and continue isosorbide 30 mg a day still on diuretics. _Low-grade iron deficiency anemia: Significantly decreased from before specially in her age and being on anticoagulation the possibility of gastrointestinal bleed is always high repeat CBC, continue proton pump inhibitor and 0 to do Hemoccult watch for any active GI bleed. _COPD: No exacerbation at this point continue albuterol/ipratropium and Symbicort. 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 _Diastolic congestive heart failure: Remain on furosemide, Was supposed to be on angiotensin receptor product. _GI prophylaxis: Patient will be on Pepcid. _DVT prophylaxis: Knee-high MIKEY hose and she was on Eliquis which will be resumed. CODE STATUS: Full code. Admit patient to the inpatient service for more than 2 night stay. 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 Past Psychological History: Anxiety Smoking Status: Former smoker Past Alcohol Use History: None Reported Past Drug Use History: None Reported - Past Family History Brother(s) Family Medical History: Cancer Sister(s) Family Medical History: Cancer Mother Additional Family Medical History / Comment(s): enlarged heart Medications and Allergies Home Medications Medication Instructions Recorded Confirmed Type Pantoprazole [Protonix] 40 mg PO DAILY 04/11/18 09/27/23 History Albuterol Inhaler [Ventolin Hfa 2 puff INHALATION RT-Q6H PRN 04/29/22 09/27/23 History Inhaler] Apixaban [Eliquis] 2.5 mg PO BID 04/29/22 09/27/23 History DULoxetine HCL [Cymbalta] 30 mg PO DAILY 04/29/22 09/27/23 History Denosumab [Prolia] 60 mg SQ Q180D 04/29/22 09/27/23 History Furosemide [Lasix] 20 mg PO DAILY 04/29/22 09/27/23 History Isosorbide Mononitrate ER [Imdur] 30 mg PO DAILY 04/29/22 09/27/23 History Cholecalciferol [Vitamin D3 (25 25 mcg PO DAILY 09/30/22 09/27/23 History Mcg = 1000 Iu)] Ascorbic Acid [Vitamin C] 500 mg PO DAILY 10/27/22 09/27/23 History Acetaminophen-Codeine 300-30mg 1 tab PO BID PRN #4 tab 12/28/22 09/27/23 Rx [Tylenol w/codeine #3] Clopidogrel [Plavix] 75 mg PO DAILY 30 Days #30 tab 12/28/22 09/27/23 Rx Atorvastatin [Lipitor] 10 mg PO HS 03/04/23 09/27/23 History Ferrous Sulfate [Iron (65 MG 325 mg PO DAILY 03/04/23 09/27/23 History Elemental)] ALPRAZolam [Xanax] 0.25 mg PO TID PRN #60 tab 05/17/23 09/27/23 Rx Aspirin EC [Ecotrin Low Dose] 81 mg PO DAILY 08/01/23 09/27/23 History Cider Vinegar [Apple Cider Vinegar] 600 mg PO DAILY 08/01/23 09/27/23 History Melatonin 1 mg PO HS 08/01/23 09/27/23 History QUEtiapine [SEROquel] 25 mg PO HS 08/01/23 09/27/23 History Donepezil [Aricept] 5 mg PO HS 09/05/23 09/27/23 History amLODIPine [Norvasc] 10 mg PO DAILY 09/05/23 09/27/23 History Ciprofloxacin HCl [Cipro] 250 mg PO Q12HR 5 Days #10 tab 09/26/23 09/27/23 Rx metroNIDAZOLE 250 mg PO AC-TID #21 tablet 09/26/23 09/27/23 Rx Allergies Allergy/AdvReac Type Severity Reaction Status Date / Time No Known Allergies Allergy Verified 09/27/23 10:12 Physical Exam Vitals: Vital Signs Temp Pulse Pulse Pulse Pulse Resp BP 09/26/23 22:03 81 91 77 09/26/23 18:12 98.6 F 83 20 100/56 BP BP BP Pulse Ox 09/26/23 22:03 127/72 128/69 138/72 09/26/23 18:12 97 Intake and Output 09/26/23 09/26/23 09/27/23 14:59 22:59 06:59 Other: Weight 81.647 kg Results CBC & Chem 7: 09/27/23 07:07 09/27/23 07:07 Labs: Abnormal Lab Results - Last 24 Hours (Table) 09/26/23 09/26/23 09/26/23 Range/Units 19:19 19:19 19:19 Hgb 10.9 L (11.4-16.0) gm/dL MCHC 30.0 L (31.0-37.0) g/dL RDW 16.4 H (11.5-15.5) % Potassium 5.7 H (3.5-5.1) mmol/L Plasma Lactic Acid Jaylon 2.2 H* (0.7-2.0) mmol/L Magnesium 1.3 L (1.6-2.3) mg/dL Total Bilirubin 1.4 H (0.2-1.3) mg/dL AST 58 H (14-36) U/L
[2023-09-28 01:45] LABS: Appearance,Urine Clear (Clear); Bacteria,Urine Rare /hpf; Bilirubin,Urine Negative (Negative); Blood,Urine Trace (Negative); Budding Yeast,Urine Many /hpf; Color,Urine Yellow; Glucose,Urine (UA) Negative (Negative); Hyaline Casts,Urine 17 /lpf (0-2); Ketones,Urine 2+ (Negative); Leukocyte Esterase,Urine Trace (Negative); Mucus,Urine Rare /hpf; Nitrite,Urine Negative (Negative); Protein,Urine Trace (Negative); RBC,Urine 3 /hpf (0-5); Specific Gravity,Urine 1.016 (1.001-1.035); Squamous Epithelial Cell,Urine 1 /hpf (0-4); Urobilinogen,Urine <2.0 mg/dL (<2.0); WBC,Urine 4 /hpf (0-5)
--- NOTE | 2023-09-28 11:26 | P.PN ---
Subjective Progress Note Date: 09/27/23 HISTORY OF PRESENT ILLNESS: 88-year-old with active medical history of COPD, CHF, A-fib, memory loss, recurrent UTI, iron deficiency anemia, A-fib, previous history of CVA, chronic neuropathy, mild PAD, atherosclerotic heart disease with recurrent chest pain and angina, severe bradycardia decline going for pacemaker recently, significant electrolyte abnormality imbalance, recurrent history of lower back pain and chronic arthritis, worsening mobility and significant decline in condition has been seeking family help on more regular basis She was hospitalized last few days with intractable diarrhea with nausea and vomiting with CAT scan of the abdomen showed pancolitis and diverticulitis was started on IV antibiotics with surgical consultation conclusion that she had colitis and diverticulitis only mostly infectious colitis was treated with Flagyl and ciprofloxacin did not require any surgical intervention and symptoms had ceased completely last 48 hours prior to discharge. The patient had severe episode of confusion or worsening dementia while she was in the hospital and require sitter for the whole time. Was stabilized and seek help with social service contacting family to see if need any further arrangement that contacting family last admission about patient needed more replacement which has been rejected by patient and her family repeatedly. Even the plan for physical therapy and ambulation was declined by patient throughout her hospitalization this last time. Patient was discharged early today in stable condition medically apparently get home and family needed to help patient with any activity she has not been not able to ambulate and walk independently with her walker without at least 1 person intellectual property legal assistant and showing significant weakness. Family called 911 and brought patient back to the hospital for the severe generalized weakness and not ability to ambulate and walk. Her workup began medically came back to be negative the patient had advanced dementia generalized weakness mostly age, arthritis, and medical condition related. Will require more physical therapy but patient therapy and require more placement or at least having to do halfway rehab for help. Patient was admitted to the hospital mostly question at the time to do physical therapy and again meet with family to talk all over but possibility of placement versus rehab till at least patient is able to move independently safe if this will ever happen. 09/27/2023: Patient still quite bit confused at the time still debilitated not been able to ambulate and walk, adding physical therapy and Occupational Therapy also spoke with the social science research assistant about contacting family for further management up till this last admission family were against the idea of having to do SNF rehab they were willing to hire extra help which so far has not been working because patient will require more than 1 person intellectual property legal assistant and still have higher potential of falling. Her diarrhea and colitis has been much better the patient nutrition has improved some. Confusion still significantly patient back on her Alzheimer medication management at this point. REVIEW OF SYSTEMS: CONSTITUTIONAL: Well-developed elderly in mild respiratory distress. EYES: No icterus sclerae, no conjunctivitis. EARS, NOSE, MOUTH, THROAT, and FACE: No sore throat, lymphadenopathy, carotid bruits or deformity. RESPIRATORY: Positive shortness of breath cough and wheezes. CARDIOVASCULAR: Positive PND orthopnea palpitation. GASTROINTESTINAL: Abdominal discomfort with nausea no vomiting diarrhea constipation no GI bleed no distention or masses. GENITOURINARY: recurrent UTI with mild incontinence. INTEGUMENT/BREAST: Negative for any muscular injury with mild osteoarthritis.. HEMATOLOGIC/LYMPHATIC: Negative for bleed or purpura. MUSCULOSKELTAL: Generalized muscle and joint pain. The patient require more than 1 person assistance with any more help. NEURLOGICAL: No LOC, Sz or syncope, blurred vision dizziness or abnormality.. Significant memory loss and confusion BEHAVIORAL/PSYCH: Negative. ENDOCRINE: Negative. PHYSICAL EXAMINATION: General Appearance: Alert, elderly looks in no distress. Neck HEENT: Supple, no lymphadenopathy, no thyroid enlargement, no carotid bruits. Slight congestion and swelling the back of her throat. Lungs: Clear to auscultation with crackles in the bases positive rhonchi and slight increased wheezes on the right side. Chest Wall: Decreased expansion with deep inspiration no tenderness and no de formity was found on exam, no costochondral pain or discomfort. Heart: Regular rate and rhythm, S1, S2 normal, no murmur, rub or gallop. Slight arrhythmia and mild bradycardia. Back: Symmetric, no curvature, ROM normal, no CVA tenderness. Abdomen: Soft, non-tender, bowel sounds active all four quadrants, no masses, no organomegaly. Extremities: Trace edema decreased pulse dorsalis pedis bilaterally with mild arthritis and slight discoloration from the knee down. Pulses: 2+ and symmetric. Skin: Skin color, texture, tugor normal, no rashes or lesions. Neurologic: Alert severely confused cranial nerves II 12 still moving all 4 extremity has severe problems with coordination, not been able to ambulate and walk stand up on her own. ASSESSMENT AND PLAN: _Severe physical debility: Combination of generalized arthritis, worsening memory loss, overall decreased mobility with her overall general condition. With the 2 recent hospitalization for GI bleed and severe bradycardia with sick sinus syndrome probably aggravate the condition as well. Start physical therapy and Occupational Therapysocial worker to help at least making plan for placement in SNF or rehab. _Altered mental status with severe confusion: With much worsening dementia mostly Alzheimer disease affected by her current medical condition. Continue current management for Alzheimer titrate medication. _Recent pancolitis: Was infectious colitis was started on metronidazole and Cipro after leaving the hospital while she was on Zosyn. No further diarrhea at this point. Patient seems to do better with colitis with significant decrease diarrhea. _Recent acute diverticulitis: Will finish the full course of Cipro and Flagyl for now. _Large infrarenal aneurysm with iliac aneurysm as well will consult vascular surgery. _Severe generalized weakness and fatigue caused by severe bradycardia with a overall general condition including memory loss, age. Possibly sick sinus syndrome. Might need pacemaker which family are disagreeable to it at this point. _Recent history of severe bradycardia declined going for pacemaker management for now we will continue watching patient in house on a Holter monitor. Pulse rate has been much better lately does not seem that we need any pacemaker at t his point. _History of seizure disorders: No active seizure activity at this point doing well stable has been off antiseizure. _Paroxysmal atrial fibrillation: She is not in any suppressive agent pulse rates under control and sound but it is very slow to continue anticoagulation. _History of CVA: Had close significant problem with memory loss and cardiac change with abnormal balance gait tiredness fatigue and mobility problem. Which patient will continue to require help. _Hypertension: Blood pressure is well-controlled currently on amlodipine 10 mg a day, and continue isosorbide 30 mg a day still on diuretics. _Low-grade iron deficiency anemia: Significantly decreased from before specially in her age and being on anticoagulation the possibility of gastrointestinal bleed is always high repeat CBC, continue proton pump inhibitor and 0 to do Hemoccult watch for any active GI bleed. _COPD: No exacerbation at this point continue albuterol/ipratropium and Symbicort. 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 _Diastolic congestive heart failure: Remain on furosemide, Was supposed to be on angiotensin receptor product. Discussion: Patient still have significant debility and worsening physical activity at this point with higher possibility for fall and injury, will continue current medication management continue to advance physical therapy to help patient will probably need to go to rehab for further management and help. Objective - Vital Signs Vital signs: Vital Signs Temp 98.6 F 09/26/23 18:12 Pulse 41 L 09/27/23 06:04 Resp 16 09/27/23 06:04 BP 125/50 09/27/23 06:04 Pulse Ox 100 09/27/23 06:04 FiO2 Intake & Output 09/26/23 09/26/23 09/27/23 06:59 18:59 06:59 Weight 81.647 kg - Labs CBC & Chem 7: 09/27/23 07:07 09/27/23 07:07 Labs: Abnormal Lab Results - Last 24 Hours (Table) 09/26/23 09/26/23 09/26/23 Range/Units 19:19 19:19 19:19 Hgb 10.9 L (11.4-16.0) gm/dL MCHC 30.0 L (31.0-37.0) g/dL RDW 16.4 H (11.5-15.5) % Potassium 5.7 H (3.5-5.1) mmol/L Plasma Lactic Acid Jaylon 2.2 H* (0.7-2.0) mmol/L Magnesium 1.3 L (1.6-2.3) mg/dL Total Bilirubin 1.4 H (0.2-1.3) mg/dL AST 58 H (14-36) U/L
--- NOTE | 2023-09-28 11:31 | P.PN ---
Subjective Progress Note Date: 09/28/23 HISTORY OF PRESENT ILLNESS: 88-year-old with active medical history of COPD, CHF, A-fib, memory loss, recurrent UTI, iron deficiency anemia, A-fib, previous history of CVA, chronic neuropathy, mild PAD, atherosclerotic heart disease with recurrent chest pain and angina, severe bradycardia decline going for pacemaker recently, significant electrolyte abnormality imbalance, recurrent history of lower back pain and chronic arthritis, worsening mobility and significant decline in condition has been seeking family help on more regular basis She was hospitalized last few days with intractable diarrhea with nausea and vomiting with CAT scan of the abdomen showed pancolitis and diverticulitis was started on IV antibiotics with surgical consultation conclusion that she had colitis and diverticulitis only mostly infectious colitis was treated with Flagyl and ciprofloxacin did not require any surgical intervention and symptoms had ceased completely last 48 hours prior to discharge. The patient had severe episode of confusion or worsening dementia while she was in the hospital and require sitter for the whole time. Was stabilized and seek help with social service contacting family to see if need any further arrangement that contacting family last admission about patient needed more replacement which has been rejected by patient and her family repeatedly. Even the plan for physical therapy and ambulation was declined by patient throughout her hospitalization this last time. Patient was discharged early today in stable condition medically apparently get home and family needed to help patient with any activity she has not been not able to ambulate and walk independently with her walker without at least 1 person certified medical technician assistant and showing significant weakness. Family called 911 and brought patient back to the hospital for the severe generalized weakness and not ability to ambulate and walk. Her workup began medically came back to be negative the patient had advanced dementia generalized weakness mostly age, arthritis, and medical condition related. Will require more physical therapy but patient therapy and require more placement or at least having to do [facility] for help. Patient was admitted to the hospital mostly question at the time to do physical therapy and again meet with family to talk all over but possibility of placement versus rehab till at least patient is able to move independently safe if this will ever happen. 09/27/2023: Patient still quite bit confused at the time still debilitated not been able to ambulate and walk, adding physical therapy and Occupational Therapy also spoke with the social work nurse about contacting family for further management up till this last admission family were against the idea of having to do SNF rehab they were willing to hire extra help which so far has not been working because patient will require more than 1 person certified medical technician assistant and still have higher potential of falling. Her diarrhea and colitis has been much better the patient nutrition has improved some. Confusion still significantly patient back on her Alzheimer medication management at this point. 09/28/2023: Long discussion with the son who is agreeable with the current management plan and she will his mom had declined quite bed asking question how, her ability to ambulate and walk has been worsening than before and having to be in her age with significant memory loss and sundowner effect of medication metabolic change and the effect of aggressive colitis recently had made her body declined quite bed. When she was in the hospital this last time she was almost bedridden was severely confused refused to ambulate walk or do any physical therapy or help for total of 3 days which made the ability to recover not as f ast as expected. He understand and asking for further help which with social work nurse hopefully arrangement to have patient goes to one of the rehab center for physical therapy and Occupational Therapy to help to regain her independency if possible. Review physical therapy from today looks like patient was not safe walking without at least 1 person certified medical technician assistant. Again explained to the son without the extra help the odds of having hip fracture or compression vertebrae and more accident control will be extremely high. REVIEW OF SYSTEMS: CONSTITUTIONAL: Well-developed elderly in mild respiratory distress. EYES: No icterus sclerae, no conjunctivitis. EARS, NOSE, MOUTH, THROAT, and FACE: No sore throat, lymphadenopathy, carotid bruits or deformity. RESPIRATORY: Positive shortness of breath cough and wheezes. CARDIOVASCULAR: Positive PND orthopnea palpitation. GASTROINTESTINAL: Abdominal discomfort with nausea no vomiting diarrhea constipation no GI bleed no distention or masses. GENITOURINARY: recurrent UTI with mild incontinence. INTEGUMENT/BREAST: Negative for any muscular injury with mild osteoarthritis.. HEMATOLOGIC/LYMPHATIC: Negative for bleed or purpura. MUSCULOSKELTAL: Generalized muscle and joint pain. The patient require more than 1 person assistance with any more help. NEURLOGICAL: No LOC, Sz or syncope, blurred vision dizziness or abnormality.. Significant memory loss and confusion BEHAVIORAL/PSYCH: Negative. ENDOCRINE: Negative. PHYSICAL EXAMINATION: General Appearance: Alert, elderly looks in no distress. Neck HEENT: Supple, no lymphadenopathy, no thyroid enlargement, no carotid bruits. Slight congestion and swelling the back of her throat. Lungs: Clear to auscultation with crackles in the bases positive rhonchi and slight increased wheezes on the right side. Chest Wall: Decreased expansion with deep inspiration no tenderness and no deformity was found on exam, no costochondral pain or discomfort. Heart: Regular rate and rhythm, S1, S2 normal, no murmur, rub or gallop. Slight arrhythmia and mild bradycardia. Back: Symmetric, no curvature, ROM normal, no CVA tenderness. Abdomen: Soft, non-tender, bowel sounds active all four quadrants, no masses, no organomegaly. Extremities: Trace edema decreased pulse dorsalis pedis bilaterally with mild arthritis and slight discoloration from the knee down. Pulses: 2+ and symmetric. Skin: Skin color, texture, tugor normal, no rashes or lesions. Neurologic: Alert severely confused cranial nerves II 12 still moving all 4 extremity has severe problems with coordination, not been able to ambulate and walk stand up on her own. ASSESSMENT AND PLAN: _Severe physical debility: Aggravated again by the fact of her last hospitalization with severe colitis and because significant problem not been able to ambulate and walk and refused to do any physical therapy for 3 days with her last hospitalization was a problem family understand and by doing physical therapy and hopefully plan to send patient to SNF in the next day or 2 will be beneficial. _Altered mental status with severe confusion: With much worsening dementia mostly Alzheimer disease affected by her current medical condition. Will titrate her donepezil to 10 mg a day and furthermore if she is able to tolerate Namenda can be added in 2 weeks. _Recent pancolitis: Was infectious colitis was started on metronidazole and Cipro after leaving the hospital while she was on Zosyn. She claims she has 1 episode of diarrhea today there is no nursing log consistent with at this point we will continue watching for any signs and symptoms patient is not symptomatic not having any abdominal pain clinically her colitis is much better. _Recent acute diverticulitis: Will finish the full course of Cipro and Flagyl for now. Still going to finish at least 5 more days of antibiotics. _Large infrarenal aneurysm with iliac aneurysm as well will consult vascular surgery. _Severe generalized weakness and fatigue caused by severe bradycardia with a overall general condition including memory loss, age. Possibly sick sinus syndrome. Might need pacemaker which family are disagreeable to it at this point. _Recent history of severe bradycardia declined going for pacemaker management for now we will continue watching patient in house on a Holter monitor. Pulse rate has been much better lately does not seem that we need any pacemaker at this point. _History of seizure disorders: No active seizure activity at this point doing well stable has been off antiseizure. _Paroxysmal atrial fibrillation: She is not in any suppressive agent pulse rates under control and sound but it is very slow to continue anticoagulation. _History of CVA: Had close significant problem with memory loss and cardiac change with abnormal balance gait tiredness fatigue and mobility problem. Which patient will continue to require help. _Hypertension: Blood pressure is well-controlled currently on amlodipine 10 mg a day, and continue isosorbide 30 mg a day still on diuretics. _Low-grade iron deficiency anemia: Significantly decreased from before specially in her age and being on anticoagulation the possibility of gastrointestinal bleed is always high repeat CBC, continue proton pump inhibitor and 0 to do Hemoccult watch for any active GI bleed. _COPD: No exacerbation at this point continue albuterol/ipratropium and Symbicort. 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 _Diastolic congestive heart failure: Remain on furosemide, Was supposed to be on angiotensin receptor product. Discussion: Continue physical therapy and social service is helping getting patient in SNF in the meanwhile her donepezil be titrated up to 10 mg a day and plan hopefully to add Namenda 5 mg a day within 2 weeks. Objective - Vital Signs Vital signs: Vital Signs Temp 98.4 F 09/28/23 07:27 Pulse 76 09/28/23 07:27 Resp 17 09/28/23 07:27 BP 161/56 09/28/23 07:27 Pulse Ox 98 09/28/23 07:27 FiO2 Intake & Output 09/27/23 09/28/23 09/28/23 18:59 06:59 18:59 Weight 81.647 kg Other: Voiding Method Bedside Commode # Voids 1 3 # Bowel Movements 1 - Labs CBC & Chem 7: 09/27/23 07:07 09/27/23 07:07 Labs: Abnormal Lab Results - Last 24 Hours (Table) 09/28/23 Range/Units 00:30 Urine Protein Trace H (Negative) Urine Ketones 2+ H (Negative) Urine Blood Trace H (Negative) Ur Leukocyte Esterase Trace H (Negative) Urine Bacteria Rare H (None) /hpf Hyaline Casts 17 H (0-2) /lpf Urine Mucus Rare H (None) /hpf Urine Yeast (Budding) Many H (None) /hpf
--- NOTE | 2023-09-28 17:18 | CDI ---
Documentation Clarification Form Date: 09/28/2023 04:38:08 PM From: Melissa Song RN CCDS Phone: [phone] Admit Date: 09/26/2023 11:23:00 PM Patient Name: Kate Medrano Visit Number: [id number] Discharge Date: ATTENTION: The Clinical Documentation Specialists (CDI) and [employer] Coding Staff appreciate your assistance in clarifying documentation. Please respond to the clarification below the line at the bottom and electronically sign. The CDI & [employer] Coding staff will review the response and follow-up if needed. Please note: Queries are made part of the Legal Health Record. If you have any questions, please contact the author of this message via ITS. Doctor Tacos Saha There is documentation of severe physical debility, 09/25, HP. Additional clarification is requested. History/Risk Factors: 88 year old female presents to the hospital after discharge for acute diverticulitis. Medicial History: Clinical Indicators: 09/25, HP: Severe physical debility: Combination of generalized arthritis worsening memory loss, overall decreased mobility with her overall condition. Physical Therapy, 09/27: Patient very pleasant and cooperative with PT. The patient presents with generalized weakness with decreased functional mobility. Patient required asstst to come to sitting from supine position, denied any lightheadedness/dizziness with activity, position changes. Required assist to come to standing, leaning posteriorly, requiring assist to maintain balance. Minimal improved balance with standing balance, transfer activities. Ambulated with short step gait with rolling walker, assist for balance, walker positioning. Increased LE fatigue, requiring to sit down after 30 feet ambulation. Recommend ABHILASH to increase strength and functional mobility. Occupational Therapy consult, 09/25: Self-care Moderate assist with supervision upper body bathing. Maximum Assist lower body dressing ability. Grooming supervision. Eating, modified independent. Toileting ability, transfer ability, maximum assist. Bed mobility ability Supervision prior ADL ability modified independent. Challenges with Basic transfers, standing balance, functional mobility, endurance, lower body strength. Discharge recommendations: Sub Acute Rehab. Treatment: Physical Therapy consult, Occupational Therapy consult, Therapeutic activity, Gait Training, Therapeutic Exercise, Balance strength Can you please further clarify debility? [ ] Age related physical debility [ XX ] Other, please specify age-related medical debility combined with acute medical illness and metabolic encephalopathy related to her acute colitis and diverticulitis. [ ] Unable to determine (Template Last Revised: April 2020) MTDD
[2023-09-28] MEDS: DONEPEZIL 10 MG TAB PO SCH (20:20)
[2023-09-29] MEDS: ALPRAZolam 0.25 MG TAB PO PRN (18:09)
--- NOTE | 2023-09-30 17:49 | P.PN ---
Subjective Progress Note Date: 09/29/23 HISTORY OF PRESENT ILLNESS: 88-year-old with active medical history of COPD, CHF, A-fib, memory loss, recurrent UTI, iron deficiency anemia, A-fib, previous history of CVA, chronic neuropathy, mild PAD, atherosclerotic heart disease with recurrent chest pain and angina, severe bradycardia decline going for pacemaker recently, significant electrolyte abnormality imbalance, recurrent history of lower back pain and chronic arthritis, worsening mobility and significant decline in condition has been seeking family help on more regular basis She was hospitalized last few days with intractable diarrhea with nausea and vomiting with CAT scan of the abdomen showed pancolitis and diverticulitis was started on IV antibiotics with surgical consultation conclusion that she had colitis and diverticulitis only mostly infectious colitis was treated with Flagyl and ciprofloxacin did not require any surgical intervention and symptoms had ceased completely last 48 hours prior to discharge. The patient had severe episode of confusion or worsening dementia while she was in the hospital and require sitter for the whole time. Was stabilized and seek help with social service contacting family to see if need any further arrangement that contacting family last admission about patient needed more replacement which has been rejected by patient and her family repeatedly. Even the plan for physical therapy and ambulation was declined by patient throughout her hospitalization this last time. Patient was discharged early today in stable condition medically apparently get home and family needed to help patient with any activity she has not been not able to ambulate and walk independently with her walker without at least 1 person syrup mixer assistant and showing significant weakness. Family called 911 and brought patient back to the hospital for the severe generalized weakness and not ability to ambulate and walk. Her workup began medically came back to be negative the patient had advanced dementia generalized weakness mostly age, arthritis, and medical condition related. Will require more physical therapy but patient therapy and require more placement or at least having to do alf rehab for help. Patient was admitted to the hospital mostly question at the time to do physical therapy and again meet with family to talk all over but possibility of placement versus rehab till at least patient is able to move independently safe if this will ever happen. 09/27/2023: Patient still quite bit confused at the time still debilitated not been able to ambulate and walk, adding physical therapy and Occupational Therapy also spoke with the family welfare social work professor about contacting family for further management up till this last admission family were against the idea of having to do SNF rehab they were willing to hire extra help which so far has not been working because patient will require more than 1 person syrup mixer assistant and still have higher potential of falling. Her diarrhea and colitis has been much better the patient nutrition has improved some. Confusion still significantly patient back on her Alzheimer medication management at this point. 09/28/2023: Long discussion with the son who is agreeable with the current management plan and she will his mom had declined quite bed asking question how, her ability to ambulate and walk has been worsening than before and having to be in her age with significant memory loss and sundowner effect of medication metabolic change and the effect of aggressive colitis recently had made her body declined quite bed. When she was in the hospital this last time she was almost bedridden was severely confused refused to ambulate walk or do any physical therapy or help for total of 3 days which made the ability to recover not as f ast as expected. He understand and asking for further help which with family welfare social work professor hopefully arrangement to have patient goes to one of the rehab center for physical therapy and Occupational Therapy to help to regain her independency if possible. Review physical therapy from today looks like patient was not safe walking without at least 1 person syrup mixer assistant. Again explained to the son without the extra help the odds of having hip fracture or compression vertebrae and more accident control will be extremely high. 09/29/2023 with severe and worsening memory loss and dementia with worsening debil ity not been able to ambulate and walk she require more than 1 person syrup mixer assistant I had long discussion with her 2 sons 1 was on the phone from [place] and 1 in town they are both are agreeable for SNF seen that they are agreeable to [facility] as a first-line otherwise no [place] [facility] on second line. All their question was answer why the significant decline specially with her pancolitis an d diverticulitis having to have worsening diarrhea and abdominal pain with nausea and vomiting with her memory loss made her symptoms much worse. They both agree to admit 5. Current every 7 at this point and still on smaller dose of Seroquel along with Cymbalta. REVIEW OF SYSTEMS: CONSTITUTIONAL: Well-developed elderly in mild respiratory distress. EYES: No icterus sclerae, no conjunctivitis. EARS, NOSE, MOUTH, THROAT, and FACE: No sore throat, lymphadenopathy, carotid bruits or deformity. RESPIRATORY: Positive shortness of breath cough and wheezes. CARDIOVASCULAR: Positive PND orthopnea palpitation. GASTROINTESTINAL: Abdominal discomfort with nausea no vomiting diarrhea constipation no GI bleed no distention or masses. GENITOURINARY: recurrent UTI with mild incontinence. INTEGUMENT/BREAST: Negative for any muscular injury with mild osteoarthritis.. HEMATOLOGIC/LYMPHATIC: Negative for bleed or purpura. MUSCULOSKELTAL: Generalized muscle and joint pain. The patient require more than 1 person assistance with any more help. NEURLOGICAL: No LOC, Sz or syncope, blurred vision dizziness or abnormality.. Significant memory loss and confusion BEHAVIORAL/PSYCH: Negative. ENDOCRINE: Negative. PHYSICAL EXAMINATION: General Appearance: Alert, elderly looks in no distress. Neck HEENT: Supple, no lymphadenopathy, no thyroid enlargement, no carotid bruits. Slight congestion and swelling the back of her throat. Lungs: Clear to auscultation with crackles in the bases positive rhonchi and slight increased wheezes on the right side. Chest Wall: Decreased expansion with deep inspiration no tenderness and no deformity was found on exam, no costochondral pain or discomfort. Heart: Regular rate and rhythm, S1, S2 normal, no murmur, rub or gallop. Slight arrhythmia and mild bradycardia. Back: Symmetric, no curvature, ROM normal, no CVA tenderness. Abdomen: Soft, non-tender, bowel sounds active all four quadrants, no masses, no organomegaly. Extremities: Trace edema decreased pulse dorsalis pedis bilaterally with mild arthritis and slight discoloration from the knee down. Pulses: 2+ and symmetric. Skin: Skin color, texture, tugor normal, no rashes or lesions. Neurologic: Alert severely confused cranial nerves II 12 still moving all 4 extremity has severe problems with coordination, not been able to ambulate and walk stand up on her own. ASSESSMENT AND PLAN: _Severe physical debility: Worsening medical condition especially with the colitis diverticulitis with her significant dementia cause more problems family are agreeable at this point to titrate physical therapy and plan for SNF. _Altered mental status with severe confusion: With much worsening dementia mostly Alzheimer disease affected by her current medical condition. Will titrate her donepezil to 10 mg a day and furthermore if she is able to tolerate Namenda can be added in 2 weeks. Continue on smaller dose of Seroquel as well patient still using alprazolam for anxiety. _Recent pancolitis: Mostly infectious colitis remain on Cipro and Flagyl. Continue both medication for now to complete 5 more days patient is having much less episode of abdominal pain and diarrhea. _Recent acute diverticulitis: Again continue and finish the full course of her Cipro and Flagyl. _Large infrarenal aneurysm with iliac aneurysm as well will consult vascular surgery. _Severe generalized weakness and fatigue caused by severe bradycardia with a overall general condition including memory loss, age. Possibly sick sinus sy ndrome. Bradycardia is much better at this point family were not agreeable to pacemaker from a month ago. _Recent history of severe bradycardia declined going for pacemaker management for now we will continue watching patient in house on a Holter monitor. Pulse rate has been much better lately does not seem that we need any pacemaker at this point. _History of seizure disorders: No active seizure activity at this point doing well stable has been off antiseizure. _Paroxysmal atrial fibrillation: She is not in any suppressive agent pulse rates under control and sound but it is very slow to continue anticoagulation. _History of CVA: Had close significant problem with memory loss and cardiac change with abnormal balance gait tiredness fatigue and mobility problem. Which patient will continue to require help. _Hypertension: Blood pressure is well-controlled currently on amlodipine 10 mg a day, and continue isosorbide 30 mg a day still on diuretics. _Low-grade iron deficiency anemia: Significantly decreased from before specially in her age and being on anticoagulation the possibility of gastrointestinal bleed is always high repeat CBC, continue proton pump inhibitor and 0 to do Hemoccult watch for any active GI bleed. _COPD: No exacerbation at this point continue albuterol/ipratropium and Symbicort. 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 _Diastolic congestive heart failure: Remain on furosemide, Was supposed to be on angiotensin receptor product. Discussion: Both sons are agreeable for titration of medication to treat her memory loss and dementia also to treat her physical debility by adding more phy sical therapy occupational therapy and probably SNF for rehab. Objective - Vital Signs Vital signs: Vital Signs Temp 98.8 F 09/29/23 08:00 Pulse 97 09/29/23 08:00 Resp 18 09/29/23 08:00 BP 123/64 09/29/23 08:00 Pulse Ox 91 L 09/29/23 08:00 FiO2 Intake & Output 09/28/23 09/29/23 09/29/23 18:59 06:59 18:59 Intake Total 480 720 Output Total 1 Balance 480 719 Intake: Oral 480 720 Output: Stool 1 Other: Voiding Method Bedside Commode # Voids 1 3 - Labs CBC & Chem 7: 09/27/23 07:07 09/27/23 07:07
--- NOTE | 2023-09-30 17:54 | P.PN ---
Subjective Progress Note Date: 09/30/23 HISTORY OF PRESENT ILLNESS: 88-year-old with active medical history of COPD, CHF, A-fib, memory loss, recurrent UTI, iron deficiency anemia, A-fib, previous history of CVA, chronic neuropathy, mild PAD, atherosclerotic heart disease with recurrent chest pain and angina, severe bradycardia decline going for pacemaker recently, significant electrolyte abnormality imbalance, recurrent history of lower back pain and chronic arthritis, worsening mobility and significant decline in condition has been seeking family help on more regular basis She was hospitalized last few days with intractable diarrhea with nausea and vomiting with CAT scan of the abdomen showed pancolitis and diverticulitis was started on IV antibiotics with surgical consultation conclusion that she had colitis and diverticulitis only mostly infectious colitis was treated with Flagyl and ciprofloxacin did not require any surgical intervention and symptoms had ceased completely last 48 hours prior to discharge. The patient had severe episode of confusion or worsening dementia while she was in the hospital and require sitter for the whole time. Was stabilized and seek help with social service contacting family to see if need any further arrangement that contacting family last admission about patient needed more replacement which has been rejected by patient and her family repeatedly. Even the plan for physical therapy and ambulation was declined by patient throughout her hospitalization this last time. Patient was discharged early today in stable condition medically apparently get home and family needed to help patient with any activity she has not been not able to ambulate and walk independently with her walker without at least 1 person assistant counsel and showing significant weakness. Family called 911 and brought patient back to the hospital for the severe generalized weakness and not ability to ambulate and walk. Her workup began medically came back to be negative the patient had advanced dementia generalized weakness mostly age, arthritis, and medical condition related. Will require more physical therapy but patient therapy and require more placement or at least having to do long-term rehab for help. Patient was admitted to the hospital mostly question at the time to do physical therapy and again meet with family to talk all over but possibility of placement versus rehab till at least patient is able to move independently safe if this will ever happen. 09/27/2023: Patient still quite bit confused at the time still debilitated not been able to ambulate and walk, adding physical therapy and Occupational Therapy also spoke with the social services analyst about contacting family for further management up till this last admission family were against the idea of having to do SNF rehab they were willing to hire extra help which so far has not been working because patient will require more than 1 person assistant counsel and still have higher potential of falling. Her diarrhea and colitis has been much better the patient nutrition has improved some. Confusion still significantly patient back on her Alzheimer medication management at this point. 09/28/2023: Long discussion with the son who is agreeable with the current management plan and she will his mom had declined quite bed asking question how, her ability to ambulate and walk has been worsening than before and having to be in her age with significant memory loss and sundowner effect of medication metabolic change and the effect of aggressive colitis recently had made her body declined quite bed. When she was in the hospital this last time she was almost bedridden was severely confused refused to ambulate walk or do any physical therapy or help for total of 3 days which made the ability to recover not as f ast as expected. He understand and asking for further help which with social services analyst hopefully arrangement to have patient goes to one of the rehab center for physical therapy and Occupational Therapy to help to regain her independency if possible. Review physical therapy from today looks like patient was not safe walking without at least 1 person assistant counsel. Again explained to the son without the extra help the odds of having hip fracture or compression vertebrae and more accident control will be extremely high. 09/29/2023 with severe and worsening memory loss and dementia with worsening debil ity not been able to ambulate and walk she require more than 1 person assistant counsel I had long discussion with her 2 sons 1 was on the phone from [place] and 1 in town they are both are agreeable for SNF seen that they are agreeable to [facility] as a first-line otherwise [facility] as a second line. All their question was answer why the significant decline specially with her pancoli tis and diverticulitis having to have worsening diarrhea and abdominal pain with nausea and vomiting with her memory loss made her symptoms much worse. They both agree to admit 5. Current every 7 at this point and still on smaller dose of Seroquel along with Cymbalta. 09/30/2023: She continues to be quite a bit confused the night medication adjustment has done slightly better with the use of alprazolam at night patient is more drowsy and sleepy this morning. She is not doing well with physical activity but she is able to move with help with more than 1 person assistant counsel. Still able to eat and drink with supervision and does take her medication with no argument. Her diarrhea is much better she is not having any further nausea or vomiting. REVIEW OF SYSTEMS: CONSTITUTIONAL: Well-developed elderly in mild respiratory distress. EYES: No icterus sclerae, no conjunctivitis. EARS, NOSE, MOUTH, THROAT, and FACE: No sore throat, lymphadenopathy, carotid bruits or deformity. RESPIRATORY: Positive shortness of breath cough and wheezes. CARDIOVASCULAR: Positive PND orthopnea palpitation. GASTROINTESTINAL: Abdominal discomfort with nausea no vomiting diarrhea constipation no GI bleed no distention or masses. GENITOURINARY: recurrent UTI with mild incontinence. INTEGUMENT/BREAST: Negative for any muscular injury with mild osteoarthritis.. HEMATOLOGIC/LYMPHATIC: Negative for bleed or purpura. MUSCULOSKELTAL: Generalized muscle and joint pain. The patient require more than 1 person assistance with any more help. NEURLOGICAL: No LOC, Sz or syncope, blurred vision dizziness or abnormality.. Significant memory loss and confusion BEHAVIORAL/PSYCH: Negative. ENDOCRINE: Negative. PHYSICAL EXAMINATION: General Appearance: Alert, elderly looks in no distress. Neck HEENT: Supple, no lymphadenopathy, no thyroid enlargement, no carotid bruits. Slight congestion and swelling the back of her throat. Lungs: Clear to auscultation with crackles in the bases positive rhonchi and slight increased wheezes on the right side. Chest Wall: Decreased expansion with deep inspiration no tenderness and no deformity was found on exam, no costochondral pain or discomfort. Heart: Regular rate and rhythm, S1, S2 normal, no murmur, rub or gallop. Slight arrhythmia and mild bradycardia. Back: Symmetric, no curvature, ROM normal, no CVA tenderness. Abdomen: Soft, non-tender, bowel sounds active all four quadrants, no masses, no organomegaly. Extremities: Trace edema decreased pulse dorsalis pedis bilaterally with mild arthritis and slight discoloration from the knee down. Pulses: 2+ and symmetric. Skin: Skin color, texture, tugor normal, no rashes or lesions. Neurologic: Alert severely confused cranial nerves II 12 still moving all 4 extremity has severe problems with coordination, not been able to ambulate and walk stand up on her own. ASSESSMENT AND PLAN: _Severe physical debility: Worsening medical condition especially with the colitis diverticulitis with her significant dementia cause more problems family are agreeable at this point to titrate physical therapy and plan for SNF. _Altered mental status with severe confusion: With much worsening dementia mostly Alzheimer disease affected by her current medical condition. Will titrate her donepezil to 10 mg a day and furthermore if she is able to tolerate Namenda can be added in 2 weeks. Continue on smaller dose of Seroquel as well patient still using alprazolam for anxiety. _Much worsening dementia: Exacerbated with new onset of illness she had with her pancolitis and diverticulitis, titrate donepezil possible need to add Namenda at some point. _Recent pancolitis: Mostly infectious colitis remain on Cipro and Flagyl. Kelsea nue both medication for now to complete 5 more days patient is having much less episode of abdominal pain and diarrhea. _Recent acute diverticulitis: Again continue and finish the full course of her Cipro and Flagyl. _Large infrarenal aneurysm with iliac aneurysm as well will consult vascular surgery. _Severe generalized weakness and fatigue caused by worsening overall condition and require more physical therapy to help. _Severe bradycardia with sick sinus syndrome with bradycardia on and off her pulse rate has been over 60 bpm lately family were not agreeable to a pacemaker. _Paroxysmal atrial fibrillation: She is surrounding with severe bradycardia continue Eliquis without any suppressive agent. _History of CVA: Had close significant problem with memory loss and cardiac change with abnormal balance gait tiredness fatigue and mobility problem. Which patient will continue to require help. _Hypertension: Blood pressure is well-controlled currently on amlodipine 10 mg a day, and continue isosorbide 30 mg a day still on diuretics. _Low-grade iron deficiency anemia: Continue multivitamin does not require any iron or blood transfusion. _COPD: No exacerbation at this point continue albuterol/ipratropium and Symbicort. 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 _Diastolic congestive heart failure: Remain on furosemide, Was supposed to be on angiotensin receptor product. _Discharge planning: Continue PT OT and planning hopefully for rehab for physical therapy. Discussion: Both sons are agreeable for titration of medication to treat her memory loss and dementia also to treat her physical debility by adding more physical therapy occupational therapy and probably SNF for rehab. Objective - Vital Signs Vital signs: Vital Signs Temp 97.6 F 09/30/23 13:36 Pulse 69 09/30/23 13:36 Resp 15 09/30/23 13:36 BP 123/64 09/30/23 13:36 Pulse Ox 96 09/30/23 13:36 FiO2 Intake & Output 09/29/23 09/30/23 09/30/23 18:59 06:59 18:59 Intake Total 240 Output Total 1000 1000 Balance 240 -1000 -1000 Intake: Oral 240 Output: Urine 1000 1000 Straight 500 650 Other: Voiding Method Bedside Commode Bedside Commode # Voids 1 # Bowel Movements 1 - Labs CBC & Chem 7: 09/27/23 07:07 09/27/23 07:07
[2023-10-01 07:36] VITALS: BP 155/66; PULSE 78; RESP 15; TEMP 98.1
[2023-10-01] MEDS ORDERED: CLOPIDOGREL 75 MG TAB ONE (09:18)
[2023-10-01] MEDS ORDERED: PANTOPRAZOLE 40 MG TABLET PO ONE (09:18)
[2023-10-01] MEDS ORDERED: ISOSORBIDE MONONITRATE ER 30 MG TAB.ER.24H PO ONE (09:18)
[2023-10-01] MEDS ORDERED: FERROUS SULFATE 325 MG TAB PO ONE (09:18)
[2023-10-01] MEDS ORDERED: FUROSEMIDE 20 MG TAB ONE (09:19)
[2023-10-01] MEDS ORDERED: APIXABAN 2.5 MG TABLET ONE ×2 (09:19→20:31)
[2023-10-01] MEDS ORDERED: amLODIPine 10 MG TAB ONE (09:19)
[2023-10-01] MEDS ORDERED: DULoxetine HCL 30 MG CAPSULE.DR PO ONE (09:19)
[2023-10-01] MEDS ORDERED: LEVOFLOXACIN 250 MG TAB ONE ×2 (09:55→21:00)
[2023-10-01] MEDS ORDERED: metroNIDAZOLE 250 MG TABLET ONE ×2 (13:20→20:30)
[2023-10-01] MEDS ORDERED: DONEPEZIL 10 MG TAB ONE (20:31)
[2023-10-01] MEDS ORDERED: QUEtiapine 25 MG TAB ONE (20:31)
[2023-10-01] MEDS ORDERED: ATORVASTATIN 10 MG TAB ONE (20:31)
[2023-10-01] MEDS ORDERED: MELATONIN 1 MG TAB PO ONE (21:00)
[2023-10-01] MEDS ORDERED: ALBUTEROL NEBULIZED 2.5 MG/3 ML INHALATION ONE (21:05)
[2023-10-02] MEDS ORDERED: PANTOPRAZOLE 40 MG TABLET PO ONE (08:46)
[2023-10-02] MEDS ORDERED: ISOSORBIDE MONONITRATE ER 30 MG TAB.ER.24H PO ONE (08:46)
[2023-10-02] MEDS ORDERED: FERROUS SULFATE 325 MG TAB PO ONE (08:46)
[2023-10-02] MEDS ORDERED: CLOPIDOGREL 75 MG TAB ONE (08:46)
[2023-10-02] MEDS ORDERED: FUROSEMIDE 20 MG TAB ONE (08:47)
[2023-10-02] MEDS ORDERED: amLODIPine 10 MG TAB ONE (08:47)
[2023-10-02] MEDS ORDERED: APIXABAN 2.5 MG TABLET ONE ×2 (08:47→20:09)
[2023-10-02] MEDS ORDERED: DULoxetine HCL 30 MG CAPSULE.DR PO ONE (08:47)
[2023-10-02] MEDS ORDERED: metroNIDAZOLE 250 MG TABLET ONE ×3 (08:57→16:20)
[2023-10-02] MEDS ORDERED: CIPROFLOXACIN HCL 250 MG TAB ONE ×2 (08:57→23:00)
[2023-10-02] MEDS ORDERED: QUEtiapine 25 MG TAB ONE (20:10)
[2023-10-02] MEDS ORDERED: ATORVASTATIN 10 MG TAB ONE (20:10)
[2023-10-02] MEDS ORDERED: DONEPEZIL 10 MG TAB ONE (20:10)
[2023-10-02] MEDS ORDERED: MELATONIN 1 MG TAB PO ONE (23:00)
[2023-10-03] MEDS ORDERED: FERROUS SULFATE 325 MG TAB PO ONE (09:47)
[2023-10-03] MEDS ORDERED: PANTOPRAZOLE 40 MG TABLET PO ONE (09:47)
[2023-10-03] MEDS ORDERED: CLOPIDOGREL 75 MG TAB ONE (09:47)
[2023-10-03] MEDS ORDERED: ISOSORBIDE MONONITRATE ER 30 MG TAB.ER.24H PO ONE (09:48)
[2023-10-03] MEDS ORDERED: DULoxetine HCL 30 MG CAPSULE.DR PO ONE (09:48)
[2023-10-03] MEDS ORDERED: FUROSEMIDE 20 MG TAB ONE (09:48)
[2023-10-03] MEDS ORDERED: amLODIPine 10 MG TAB ONE (09:48)
[2023-10-03] MEDS ORDERED: APIXABAN 2.5 MG TABLET ONE (09:48)
== END 2023-10-03 12:41 | disposition home or self-care (01) | DRG 884 ==
LOC: EC 18:08 → 5NMEDONC 23:23
PROVIDERS: ADMIT Internal Medicine Geriatric Medicine; ATTEND Internal Medicine Geriatric Medicine
DX: R54 Age-related physical debility (principal); G93.41 Metabolic encephalopathy; A09 Infectious gastroenteritis and colitis, unspecified; I50.32 Chronic diastolic (congestive) heart failure; I69.354 Hemiplegia and hemiparesis following cerebral infarction affecting left non-dominant side; K57.32 Diverticulitis of large intestine without perforation or abscess without bleeding; E83.42 Hypomagnesemia; E78.5 Hyperlipidemia, unspecified; I11.0 Hypertensive heart disease with heart failure; I25.10 Atherosclerotic heart disease of native coronary artery without angina pectoris; I49.5 Sick sinus syndrome; I48.0 Paroxysmal atrial fibrillation; I72.3 Aneurysm of iliac artery; R00.1 Bradycardia, unspecified; G62.9 Polyneuropathy, unspecified; D50.9 Iron deficiency anemia, unspecified; J43.9 Emphysema, unspecified; R29.6 Repeated falls; M13.0 Polyarthritis, unspecified; G30.9 Alzheimer's disease, unspecified; F02.80 Dementia in other diseases classified elsewhere, unspecified severity, without behavioral disturbance, psychotic disturbance, mood disturbance, and anxiety; Z79.01 Long term (current) use of anticoagulants; Z79.899 Other long term (current) drug therapy; Z79.82 Long term (current) use of aspirin; Z87.891 Personal history of nicotine dependence; Z79.02 Long term (current) use of antithrombotics/antiplatelets
CPT/HCPCS: 36415; 74018; 80048; 80053; 81001; 83605; 83735; 85025; 93005; 94760; 96361; 96365; 96366; 99285

== ENCOUNTER → 2023-10-16 | Outpatient (CLI) | payer MEDICARE, BC | END | disposition home or self-care (01) | LOC: LABPRL 15:10 | PROVIDERS: ATTEND Internal Medicine Geriatric Medicine | CPT/HCPCS: 87077; 87086; 87186 ==

== ENCOUNTER 2023-10-26 18:52 | Emergency (ER) | payer MEDICARE, BC ==
[2023-10-26 18:57] VITALS: TEMP 98.2
[2023-10-26] MEDS: Acetaminophen-Codeine 300-30mg TAB PO STA (19:42)
[2023-10-26] MEDS: LIDOCAINE 4% PATCH TOPICAL ONE (19:43)
[2023-10-26] MEDS: methocarbamoL 500 MG TAB PO STA (19:43)
--- NOTE | 2023-10-26 19:51 | ED ---
Back Pain HPI - General Chief Complaint: Back Pain/Injury Stated Complaint: back/leg pain Time Seen by Provider: 10/26/23 18:59 Source: patient, EMS, RN notes reviewed Mode of arrival: EMS Limitations: no limitations - History of Present Illness Initial Comments: This is an 88-year-old female who presents to the emergency department for lower back pain. Patient was released from rehab 2 days ago. She is currently living alone, however her son lives next-door. States that after discharge from rehab, she was able to ambulate using a walker. She tried to use an exercise bike yesterday, and after arriving home later that day she had tried to get up to go to the restroom using her walker, however her legs were buckling and she was unable to make it back. She did not fall, but has not tried ambulating with her walker since. Unsure if she may have overdone it using the exercise bike. Believes that her son called EMS to bring her here, however she is not entirely sure. Does not believe that her back pain is worse now than it was previously. States that this is a chronic and ongoing issue. Denies any loss of bowel/bladder control or saddle anesthesia. Believes that she can probably return home if she is able to ambulate with her walker. She was given medication to help with her pain while in rehab, but is unsure if she is taking anything now. MD Complaint: back pain - Related Data Home Medications Medication Instructions Recorded Confirmed Pantoprazole [Protonix] 40 mg PO DAILY 04/11/18 09/27/23 Albuterol Inhaler [Ventolin Hfa 2 puff INHALATION RT-Q6H PRN 04/29/22 09/27/23 Inhaler] Apixaban [Eliquis] 2.5 mg PO BID 04/29/22 09/27/23 DULoxetine HCL [Cymbalta] 30 mg PO DAILY 04/29/22 09/27/23 Denosumab [Prolia] 60 mg SQ Q180D 04/29/22 09/27/23 Furosemide [Lasix] 20 mg PO DAILY 04/29/22 09/27/23 Isosorbide Mononitrate ER [Imdur] 30 mg PO DAILY 04/29/22 09/27/23 Cholecalciferol [Vitamin D3 (25 25 mcg PO DAILY 09/30/22 09/27/23 Mcg = 1000 Iu)] Ascorbic Acid [Vitamin C] 500 mg PO DAILY 10/27/22 09/27/23 Atorvastatin [Lipitor] 10 mg PO HS 03/04/23 09/27/23 Ferrous Sulfate [Iron (65 MG 325 mg PO DAILY 03/04/23 09/27/23 Elemental)] Aspirin EC [Ecotrin Low Dose] 81 mg PO DAILY 08/01/23 09/27/23 Cider Vinegar [Apple Cider Vinegar] 600 mg PO DAILY 08/01/23 09/27/23 Melatonin 1 mg PO HS 08/01/23 09/27/23 QUEtiapine [SEROquel] 25 mg PO HS 08/01/23 09/27/23 Donepezil [Aricept] 5 mg PO HS 09/05/23 09/27/23 amLODIPine [Norvasc] 10 mg PO DAILY 09/05/23 09/27/23 Previous Rx's Medication Instructions Recorded Acetaminophen-Codeine 300-30mg 1 tab PO BID PRN #4 tab 12/28/22 [Tylenol w/codeine #3] Clopidogrel [Plavix] 75 mg PO DAILY 30 Days #30 tab 12/28/22 ALPRAZolam [Xanax] 0.25 mg PO TID PRN #60 tab 05/17/23 Ciprofloxacin HCl [Cipro] 250 mg PO Q12HR 5 Days #10 tab 09/26/23 metroNIDAZOLE 250 mg PO AC-TID #21 tablet 09/26/23 Acetaminophen-Codeine 300-30mg 1 tab PO Q6H PRN 3 Days #12 tablet 10/26/23 [Tylenol w/codeine #3] Lidocaine 5% Patch [Lidoderm 5% 1 patch TOPICAL DAILY PRN #30 patch 10/26/23 Patch] Allergies Allergy/AdvReac Type Severity Reaction Status Date / Time No Known Allergies Allergy Verified 09/27/23 10:12 Review of Systems ROS Statement: Those systems with pertinent positive or pertinent negative responses have been documented in the HPI. ROS Other: All systems not noted in ROS Statement are negative. 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 Past Psychological History: Anxiety Smoking Status: Former smoker Past Alcohol Use History: None Reported Past Drug Use History: None Reported - Past Family History Brother(s) Family Medical History: Cancer Sister(s) Family Medical History: Cancer Mother Additional Family Medical History / Comment(s): enlarged heart General Exam Limitations: no limitations General appearance: alert, in no apparent distress Head exam: Present: atraumatic, normocephalic, normal inspection Respiratory exam: Present: decreased breath sounds, prolonged expiratory Cardiovascular Exam: Present: regular rate, normal rhythm, normal heart sounds. Absent: systolic murmur, diastolic murmur, rubs, gallop, clicks Back exam: Present: other (Denies palpation of the lower back) Neurological exam: Present: alert, oriented X3, CN II-XII intact Psychiatric exam: Present: normal affect, normal mood Skin exam: Present: warm, dry, intact, normal color. Absent: rash Course Vital Signs 10/26/23 10/26/23 18:53 22:06 Temperature 98.2 F Pulse Rate 80 82 Respiratory 18 16 Rate Blood Pressure 109/67 134/68 O2 Sat by Pulse 100 99 Oximetry Medical Decision Making - Medical Decision Making This is an 88-year-old female who presents to the emergency department for lower back pain. Was pt. sent in by a medical professional or institution? @ -No Did you speak to anyone other than the patient for history? @ -No Did you review nursing and triage notes? @ -I disagree with being discharged from rehab today, states that she was discharged 2 days ago. Were old charts reviewed? @ -No Differential Diagnosis? @ -Differential Back Pain: Strain, zoster, cauda equina syndrome, epidural abscess, vertebral osteom yelitis, discitis, fracture, subluxation, disc herniation, DJD, spinal stenosis, dissection, AAA, pancreatitis, peptic ulcer disease, pyelonephritis, kidney stone, this is not meant to be an all-inclusive list. EKG interpreted by me (3pts min.)? @ -Not obtained X-rays interpreted by me (1pt min.)? @ -Not obtained CT interpreted by me (1pt min.)? @ -Not obtained U/S interpreted by me (1pt. min.)? @ -Not obtained What testing was considered but not performed? (CT, X-rays, U/S, labs)? Why? @ -None What meds were considered but not given? Why? @ -None Did you discuss the management of the patient with other professionals? @ -No Did you reconcile home meds? @ -No Was smoking cessation discussed for >3mins.? @ -No Was critical care preformed (if so, how long)? @ -No Were there social determinants of health that impacted care today? How? (Homelessness, low income, unemployed, alcoholism, drug addiction, transportation, low edu. Level, literacy, decrease access to med. care, snf, rehab)? @ -No Was there de-escalation of care discussed even if they declined? (Discuss DNR or withdrawal of care, Hospice)? @ -No What co-morbidities impacted this encounter? (DM, HTN, Smoking, COPD, CAD, Cancer, CVA, Hep., AIDS, mental health diagnosis, sleep apnea, morbid obesity)? @ -COPD, dementia, osteoarthritis Was patient admitted / discharged? @ -Discharged. We did obtain baseline lab work which was unremarkable. Patient advised that she likely overdid it on the exercise bike, which is consistent with the history. She was given pain medication with improvement in symptoms. Afterwards she was able to ambulate with her walker without difficulty and she was comfortable with discharge home. It does appear that she has received and tolerated Tylenol #3 in the past without difficulty. She found this beneficial in the emergency department. She was given a short-term prescription for Tylenol #3 to help with her pain in the meantime as she cannot take NSAIDs and Tylenol alone has not been effective. Advised that this may izzy e her drowsy and she should take it sparingly. Lidocaine patches prescribed as well. Patient's son was contacted and he came to pick her up from the emergency department and she was discharged home in stable condition. Case discussed with ED attending Dr. Keys. Return precautions reviewed in depth, the patient is instructed to return to the emergency department with any new, worsening, or concerning symptoms. Patient verbalized understanding. Undiagnosed new problem with uncertain prognosis? @ -None Drug Therapy requiring intensive monitoring for toxicity (Heparin, Nitro, Insulin, Cardizem)? @ -None Were any procedures done? @ -None Diagnosis/symptom? @ -Chronic back pain Acute, or Chronic, or Acute on Chronic? @ -Chronic Uncomplicated (without systemic symptoms) or Complicated (systemic symptoms)? @ -Uncomplicated Side effects of treatment? @ -None Exacerbation, Progression, or Severe Exacerbation] @ -Exacerbation Poses a threat to life or bodily function? @ -The pain does interfere with her ability to function - Lab Data Result diagrams: 10/26/23 19:49 10/26/23 19:49 Lab Results 10/26/23 10/26/23 Range/Units 19:49 19:49 WBC 6.6 (3.8-10.6) k/uL RBC 3.49 L (3.80-5.40) m/uL Hgb 9.1 L (11.4-16.0) gm/dL Hct 29.7 L (34.0-46.0) % MCV 85.1 (80.0-100.0) fL MCH 26.2 (25.0-35.0) pg MCHC 30.8 L (31.0-37.0) g/dL RDW 18.8 H (11.5-15.5) % Plt Count 338 (150-450) k/uL MPV 6.9 Neutrophils % 61 % Lymphocytes % 27 % Monocytes % 7 % Eosinophils % 3 % Basophils % 0 % Neutrophils # 4.1 (1.3-7.7) k/uL Lymphocytes # 1.8 (1.0-4.8) k/uL Monocytes # 0.5 (0-1.0) k/uL Eosinophils # 0.2 (0-0.7) k/uL Basophils # 0.0 (0-0.2) k/uL Hypochromasia Marked Anisocytosis Slight Sodium 138 (137-145) mmol/L Potassium 3.6 (3.5-5.1) mmol/L Chloride 100 (98-107) mmol/L Carbon Dioxide 34 H (22-30) mmol/L Anion Gap 4 mmol/L BUN 8 (7-17) mg/dL Creatinine 0.81 (0.52-1.04) mg/dL Est GFR (CKD-EPI)AfAm 76 (>60 ml/min/1.73 sqM) Est GFR (CKD-EPI)NonAf 66 (>60 ml/min/1.73 sqM) Glucose 87 (74-99) mg/dL Calcium 9.5 (8.4-10.2) mg/dL Phosphorus 3.1 (2.5-4.5) mg/dL Magnesium 1.7 (1.6-2.3) mg/dL Total Bilirubin 0.6 (0.2-1.3) mg/dL AST 28 (14-36) U/L ALT 8 (4-34) U/L Alkaline Phosphatase 74 (38-126) U/L Creatine Kinase 102 (30-135) U/L Total Protein 5.8 L (6.3-8.2) g/dL Albumin 3.3 L (3.5-5.0) g/dL Disposition Clinical Impression: Chronic back pain, Difficulty in walking Disposition: HOME SELF-CARE Condition: Stable Instructions (If sedation given, give patient instructions): Back Pain (ED) Additional Instructions: Return to the emergency department with any new, worsening, or concerning symptoms. Take the Tylenol with codeine sparingly when your pain is the most severe. Be aware that this may make you drowsy. Make sure you are taking [id number] Tylenol as well. You can apply the lidocaine patches daily. Follow up with your primary care provider in 1-2 days. Prescriptions: Lidocaine 5% Patch [Lidoderm 5% Patch] 1 patch TOPICAL DAILY PRN #30 patch PRN Reason: Pain Acetaminophen-Codeine 300-30mg [Tylenol w/codeine #3] 1 tab PO Q6H PRN 3 Days #12 tablet PRN Reason: Pain Is patient prescribed a controlled substance at d/c from ED?: Yes When asked, does pt state using other controlled substances?: No If prescribed controlled substance>3 days was MAPS reviewed?: Prescribed <3 Days Referrals: Tacos Saha MD [Primary Care Provider] - 1-2 days Time of Disposition: 21:30
[2023-10-26 20:50] LABS: Anisocytosis Slight; Basophils % (A) 0 %; Eosinophils # (A) 0.2 k/uL (0-0.7); Eosinophils % (A) 3 %; HCT 29.7 % (34.0-46.0); HGB 9.1 gm/dL (11.4-16.0); Hypochromasia Marked; Lymphocytes # (A) 1.8 k/uL (1.0-4.8); Lymphocytes % (A) 27 %; MCH 26.2 pg (25.0-35.0); MCHC 30.8 g/dL (31.0-37.0); MCV 85.1 fL (80.0-100.0); Mean Platelet Volume 6.9; Monocytes # (A) 0.5 k/uL (0-1.0); Monocytes % (A) 7 %; Neutrophils # (A) 4.1 k/uL (1.3-7.7); Neutrophils % (A) 61 %; Platelet Count 338 k/uL (150-450); RBC 3.49 m/uL (3.80-5.40); RDW 18.8 % (11.5-15.5); WBC 6.6 k/uL (3.8-10.6)
[2023-10-26 20:58] LABS: ALT 8 U/L (4-34); AST 28 U/L (14-36); African American GFR (CKD) 76 (>60 ml/min/1.73 sqM); Albumin 3.3 g/dL (3.5-5.0); Alkaline Phosphatase 74 U/L (38-126); Anion Gap 4 mmol/L; Blood Urea Nitrogen 8 mg/dL (7-17); Calcium 9.5 mg/dL (8.4-10.2); Carbon Dioxide 34 mmol/L (22-30); Chloride 100 mmol/L (98-107); Creatine Kinase 102 U/L (30-135); Glucose 87 mg/dL (74-99); Magnesium 1.7 mg/dL (1.6-2.3); Non-African American GFR(CKD) 66 (>60 ml/min/1.73 sqM); Phosphorus 3.1 mg/dL (2.5-4.5); Potassium 3.6 mmol/L (3.5-5.1); Sodium 138 mmol/L (137-145); Total Bilirubin 0.6 mg/dL (0.2-1.3); Total Protein 5.8 g/dL (6.3-8.2)
[2023-10-26] MEDS: ACET/COD 300 MG/30 MG STARTER PACK 6 TAB BTL PO STA (21:42)
[2023-10-26] MEDS: BACITRACIN OINT 1 EACH PACKET TOPICAL ONE (22:04)
[2023-10-26 22:20] VITALS: BP 134/68; PULSE 82; RESP 16
== END 2023-10-26 22:40 | disposition home or self-care (01) ==
LOC: EC 18:52
DX: M54.50 Low back pain, unspecified
CPT/HCPCS: 36415; 80053; 82550; 83735; 84100; 85025; 99284

== ENCOUNTER 2023-10-29 12:33 | Inpatient (IN) | payer MEDICARE, BC ==
--- NOTE | 2023-10-29 13:02 | ED ---
General Adult HPI - General Chief complaint: Weakness Stated complaint: weakness Time Seen by Provider: 10/29/23 12:45 Source: EMS Mode of arrival: EMS Limitations: no limitations - History of Present Illness Initial comments: Dictation was produced using [employer] dictation software. please excuse any grammatical, word or spelling errors. Chief Complaint: 88-year-old female presents to the emergency department for debility History of Present Illness: Patient is an 88-year-old female she states she is here because she feels weak. States that she has been weak last several days. She told her son to call EMS. Patient states that she is unable to perform her activities of daily living. According to EMS there is concern that patient is currently dealing with a UTI. Patient feels like she needs to be admitted and placed in a longterm. The ROS documented in this emergency department record has been reviewed and confirmed by me. Those systems with pertinent positive or negative responses have been documented in the HPI. All other systems are other negative and/or noncontributory. - Related Data Home Medications Medication Instructions Recorded Confirmed Pantoprazole [Protonix] 40 mg PO DAILY 04/11/18 09/27/23 Albuterol Inhaler [Ventolin Hfa 2 puff INHALATION RT-Q6H PRN 04/29/22 09/27/23 Inhaler] Apixaban [Eliquis] 2.5 mg PO BID 04/29/22 09/27/23 DULoxetine HCL [Cymbalta] 30 mg PO DAILY 04/29/22 09/27/23 Denosumab [Prolia] 60 mg SQ Q180D 04/29/22 09/27/23 Furosemide [Lasix] 20 mg PO DAILY 04/29/22 09/27/23 Isosorbide Mononitrate ER [Imdur] 30 mg PO DAILY 04/29/22 09/27/23 Cholecalciferol [Vitamin D3 (25 25 mcg PO DAILY 09/30/22 09/27/23 Mcg = 1000 Iu)] Ascorbic Acid [Vitamin C] 500 mg PO DAILY 10/27/22 09/27/23 Atorvastatin [Lipitor] 10 mg PO HS 03/04/23 09/27/23 Ferrous Sulfate [Iron (65 MG 325 mg PO DAILY 03/04/23 09/27/23 Elemental)] Aspirin EC [Ecotrin Low Dose] 81 mg PO DAILY 08/01/23 09/27/23 Cider Vinegar [Apple Cider Vinegar] 600 mg PO DAILY 08/01/23 09/27/23 Melatonin 1 mg PO HS 08/01/23 09/27/23 QUEtiapine [SEROquel] 25 mg PO HS 08/01/23 09/27/23 Donepezil [Aricept] 5 mg PO HS 09/05/23 09/27/23 amLODIPine [Norvasc] 10 mg PO DAILY 09/05/23 09/27/23 Previous Rx's Medication Instructions Recorded Acetaminophen-Codeine 300-30mg 1 tab PO BID PRN #4 tab 12/28/22 [Tylenol w/codeine #3] Clopidogrel [Plavix] 75 mg PO DAILY 30 Days #30 tab 12/28/22 ALPRAZolam [Xanax] 0.25 mg PO TID PRN #60 tab 05/17/23 Ciprofloxacin HCl [Cipro] 250 mg PO Q12HR 5 Days #10 tab 09/26/23 metroNIDAZOLE 250 mg PO AC-TID #21 tablet 09/26/23 Acetaminophen-Codeine 300-30mg 1 tab PO Q6H PRN 3 Days #12 tablet 10/26/23 [Tylenol w/codeine #3] Lidocaine 5% Patch [Lidoderm 5% 1 patch TOPICAL DAILY PRN #30 patch 10/26/23 Patch] Allergies Allergy/AdvReac Type Severity Reaction Status Date / Time No Known Allergies Allergy Verified 09/27/23 10:12 Review of Systems ROS Statement: Those systems with pertinent positive or pertinent negative responses have been documented in the HPI. ROS Other: All systems not noted in ROS Statement are negative. 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 Past Psychological History: Anxiety Smoking Status: Former smoker Past Alcohol Use History: None Reported Past Drug Use History: None Reported - Past Family History Brother(s) Family Medical History: Cancer Sister(s) Family Medical History: Cancer Mother Additional Family Medical History / Comment(s): enlarged heart General Exam - General Exam Comments Initial Comments: PHYSICAL EXAM: General Impression: Alert and oriented x3, not in acute distress HEENT: Normocephalic atraumatic, extra-ocular movements intact, pupils equal and reactive to light bilaterally, mucous membranes moist. Cardiovascular: Heart regular rate and rhythm Chest: Able to complete full sentences, no retractions, no tachypnea Abdomen: abdomen soft, non-tender, non-distended, no organomegaly Musculoskeletal: Pulses present and equal in all extremities, no peripheral edema Motor: no focal deficits noted Neurological: CN II-XII grossly intact, no focal motor or sensory deficits noted Skin: Intact with no visualized rashes Psych: Normal affect and mood Limitations: no limitations Course Vital Signs 10/29/23 10/29/23 12:38 14:21 Temperature 98.4 F Pulse Rate 68 72 Respiratory 18 16 Rate Blood Pressure 112/57 129/46 O2 Sat by Pulse 91 L Oximetry Medical Decision Making - Medical Decision Making Was pt. sent in by a medical professional or institution (SAMPSON Iraheta, CAD CAM PROGRAMMER, urgent care, hospital, or longterm...) When possible be specific @ -No Did you speak to anyone other than the patient for history (EMS, parent, family, police, friend...)? What history was obtained from this source @ -No Did you review nursing and triage notes (agree or disagree)? Why? @ -I reviewed and agree with nursing and triage notes Were old charts reviewed (outside hosp., previous admission, EMS record, old EKG, old radiological studies, urgent care reports/EKG's, longterm records)? Report findings @ -No old charts were reviewed Differential Diagnosis (chest pain, altered mental status, abdominal pain women, abdominal pain men, vaginal bleeding, musculoskeletal, weakness, fever, dyspnea, syncope, headache, dizziness, GI bleed, back pain, seizure, CVA, palpatations, mental health)? @ -Differential Weakness: Hypoglycemia, shock, sepsis, hyponatremia, anemia, infection, NC, ETOH, adverse medicine reaction, overdose, stroke, this is not meant to be an all-inclusive list. EKG interpreted by me (3pts min.). @ -My EKG interpretation: Ventricular rate 58, sinus bradycardia, period of old 243, QRS 79, QTc 377. No OH prolongation, no QTC prolongation, no ST or T-wave changes noted. Overall, this EKG is unremarkable X-rays interpreted by me (1pt min.). @ -None done CT interpreted by me (1pt min.). @ -None done U/S interpreted by me (1pt. min.). @ -None done What testing was considered but not performed or refused? (CT, X-rays, U/S, labs)? Why? @ -None What meds were considered but not given or refused? Why? @ -None Was smoking cessation discussed for >3mins.? @ -No Were there social determinants of health that impacted care today? How? (Homelessness, low income, unemployed, alcoholism, drug addiction, transportation, low edu. Level, literacy, decrease access to med. care, shelter, rehab)? @ -No Was there de-escalation of care discussed even if they declined (Discuss DNR or withdrawal of care, Hospice)? DNR status @ -No What co-morbidities impacted this encounter? (DM, HTN, Smoking, COPD, CAD, Cancer, CVA, ARF, Chemo, Hep., AIDS, mental health diagnosis, sleep apnea, morbid obesity)? @ -None Was patient admitted / discharged? Hospital course, mention meds given and route, prescriptions, significant lab abnormalities, going to OR and other pertinent info. @ -88-year-old female presents to the ER for debility. Vital signs stable. Physical examination is unremarkable. Patient states that she cannot care for self at home anymore. Labs are unremarkable. Patient will be admitted. Case discussed with Dr. Rico for admission. Did you discuss the management of the patient with other professionals (professionals i.e. , PA, CAD CAM PROGRAMMER, lab, RT, psych nurse, social work coordinator, funeral director/embalmer/owner, teacher, investment officer, case coordinator)? Give summary @ -See above Was critical care preformed (if so, how long)? @ -No Undiagnosed new problem with uncertain prognosis? @ -No Drug Therapy requiring intensive monitoring for toxicity (Heparin, Nitro, Insuli n, Cardizem)? @ -No Were any procedures done? @ -No Diagnosis/symptom? Acute, or Chronic, or Acute on Chronic? Uncomplicated (without systemic symptoms) or Complicated (systemic symptoms)? @ -Social debility Side effects of treatment? @ -No Exacerbation, Progression, or Severe Exacerbation? @ -No Poses a threat to life or bodily function? How? (Chest pain, USA, NC, pneumonia, PE, COPD, DKA, ARF, appy, cholecystitis, CVA, Diverticulitis, Homicidal, Suicidal, threat to staff... and all critical care pts) @ -yes - Lab Data Result diagrams: 10/29/23 13:58 10/29/23 13:58 Lab Results 10/29/23 10/29/23 10/29/23 Range/Units 13:58 13:58 13:58 WBC 5.0 (3.8-10.6) k/uL RBC 3.63 L (3.80-5.40) m/uL Hgb 9.3 L (11.4-16.0) gm/dL Hct 30.8 L (34.0-46.0) % MCV 84.7 (80.0-100.0) fL MCH 25.7 (25.0-35.0) pg MCHC 30.3 L (31.0-37.0) g/dL RDW 18.8 H (11.5-15.5) % Plt Count 343 (150-450) k/uL MPV 6.9 Neutrophils % 60 % Lymphocytes % 28 % Monocytes % 7 % Eosinophils % 2 % Basophils % 1 % Neutrophils # 3.0 (1.3-7.7) k/uL Lymphocytes # 1.4 (1.0-4.8) k/uL Monocytes # 0.4 (0-1.0) k/uL Eosinophils # 0.1 (0-0.7) k/uL Basophils # 0.0 (0-0.2) k/uL Hypochromasia Marked Anisocytosis Slight Sodium 138 (137-145) mmol/L Potassium 4.6 (3.5-5.1) mmol/L Chloride 100 (98-107) mmol/L Carbon Dioxide 38 H (22-30) mmol/L Anion Gap 0 mmol/L BUN 8 (7-17) mg/dL Creatinine 0.71 (0.52-1.04) mg/dL Est GFR (CKD-EPI)AfAm 88 (>60 ml/min/1.73 sqM) Est GFR (CKD-EPI)NonAf 77 (>60 ml/min/1.73 sqM) Glucose 95 (74-99) mg/dL Plasma Lactic Acid Jaylon 1.0 (0.7-2.0) mmol/L Calcium 9.1 (8.4-10.2) mg/dL Total Bilirubin 1.0 (0.2-1.3) mg/dL AST 41 H (14-36) U/L ALT 7 (4-34) U/L Alkaline Phosphatase 60 (38-126) U/L Total Protein 6.3 (6.3-8.2) g/dL Albumin 3.5 (3.5-5.0) g/dL Urine Color Urine Appearance (Clear) Urine pH (5.0-8.0) Ur Specific [place] (1.001-1.035) Urine Protein (Negative) Urine Glucose (UA) (Negative) Urine Ketones (Negative) Urine Blood (Negative) Urine Nitrite (Negative) Urine Bilirubin (Negative) Urine Urobilinogen (<2.0) mg/dL Ur Leukocyte Esterase (Negative) Urine RBC (0-5) /hpf Urine WBC (0-5) /hpf Ur Squamous Epith Cells (0-4) /hpf Urine Bacteria (None) /hpf Hyaline Casts (0-2) /lpf Urine Mucus (None) /hpf 10/29/23 Range/Units 14:21 WBC (3.8-10.6) k/uL RBC (3.80-5.40) m/uL Hgb (11.4-16.0) gm/dL Hct (34.0-46.0) % MCV (80.0-100.0) fL MCH (25.0-35.0) pg MCHC (31.0-37.0) g/dL RDW (11.5-15.5) % Plt Count (150-450) k/uL MPV Neutrophils % % Lymphocytes % % Monocytes % % Eosinophils % % Basophils % % Neutrophils # (1.3-7.7) k/uL Lymphocytes # (1.0-4.8) k/uL Monocytes # (0-1.0) k/uL Eosinophils # (0-0.7) k/uL Basophils # (0-0.2) k/uL Hypochromasia Anisocytosis Sodium (137-145) mmol/L Potassium (3.5-5.1) mmol/L Chloride (98-107) mmol/L Carbon Dioxide (22-30) mmol/L Anion Gap mmol/L BUN (7-17) mg/dL Creatinine (0.52-1.04) mg/dL Est GFR (CKD-EPI)AfAm (>60 ml/min/1.73 sqM) Est GFR (CKD-EPI)NonAf (>60 ml/min/1.73 sqM) Glucose (74-99) mg/dL Plasma Lactic Acid Jaylon (0.7-2.0) mmol/L Calcium (8.4-10.2) mg/dL Total Bilirubin (0.2-1.3) mg/dL AST (14-36) U/L ALT (4-34) U/L Alkaline Phosphatase (38-126) U/L Total Protein (6.3-8.2) g/dL Albumin (3.5-5.0) g/dL Urine Color Yellow Urine Appearance Clear (Clear) Urine pH 6.0 (5.0-8.0) Ur Specific [place] 1.008 (1.001-1.035) Urine Protein Negative (Negative) Urine Glucose (UA) Negative (Negative) Urine Ketones Negative (Negative) Urine Blood Small H (Negative) Urine Nitrite Negative (Negative) Urine Bilirubin Negative (Negative) Urine Urobilinogen <2.0 (<2.0) mg/dL Ur Leukocyte Esterase Negative (Negative) Urine RBC 1 (0-5) /hpf Urine WBC 1 (0-5) /hpf Ur Squamous Epith Cells 1 (0-4) /hpf Urine Bacteria Few H (None) /hpf Hyaline Casts 1 (0-2) /lpf Urine Mucus Rare H (None) /hpf Disposition Clinical Impression: Debility Disposition: ADMITTED IP TO [facility] Condition: Fair Referrals: Tacos Saha MD [Primary Care Provider] - 1-2 days Decision Time: 15:46
[2023-10-29 14:17] LABS: Anisocytosis Slight; Basophils % (A) 1 %; Eosinophils # (A) 0.1 k/uL (0-0.7); Eosinophils % (A) 2 %; HCT 30.8 % (34.0-46.0); HGB 9.3 gm/dL (11.4-16.0); Hypochromasia Marked; Lymphocytes # (A) 1.4 k/uL (1.0-4.8); Lymphocytes % (A) 28 %; MCH 25.7 pg (25.0-35.0); MCHC 30.3 g/dL (31.0-37.0); MCV 84.7 fL (80.0-100.0); Mean Platelet Volume 6.9; Monocytes # (A) 0.4 k/uL (0-1.0); Monocytes % (A) 7 %; Neutrophils % (A) 60 %; Platelet Count 343 k/uL (150-450); RBC 3.63 m/uL (3.80-5.40); RDW 18.8 % (11.5-15.5)
[2023-10-29 14:22] LABS: ALT 7 U/L (4-34); African American GFR (CKD) 88 (>60 ml/min/1.73 sqM); Anion Gap 0 mmol/L; Blood Urea Nitrogen 8 mg/dL (7-17); Calcium 9.1 mg/dL (8.4-10.2); Carbon Dioxide 38 mmol/L (22-30); Chloride 100 mmol/L (98-107); Non-African American GFR(CKD) 77 (>60 ml/min/1.73 sqM); Sodium 138 mmol/L (137-145)
[2023-10-29 14:26] LABS: Albumin 3.5 g/dL (3.5-5.0); Glucose 95 mg/dL (74-99); Potassium 4.6 mmol/L (3.5-5.1); Total Protein 6.3 g/dL (6.3-8.2)
[2023-10-29 14:27] LABS: AST 41 U/L (14-36); Alkaline Phosphatase 60 U/L (38-126)
[2023-10-29 14:50] LABS: Appearance,Urine Clear (Clear); Bacteria,Urine Few /hpf; Bilirubin,Urine Negative (Negative); Blood,Urine Small (Negative); Color,Urine Yellow; Glucose,Urine (UA) Negative (Negative); Hyaline Casts,Urine 1 /lpf (0-2); Ketones,Urine Negative (Negative); Leukocyte Esterase,Urine Negative (Negative); Mucus,Urine Rare /hpf; Nitrite,Urine Negative (Negative); Protein,Urine Negative (Negative); RBC,Urine 1 /hpf (0-5); Specific Gravity,Urine 1.008 (1.001-1.035); Squamous Epithelial Cell,Urine 1 /hpf (0-4); Urobilinogen,Urine <2.0 mg/dL (<2.0); WBC,Urine 1 /hpf (0-5)
[2023-10-29] MEDS ORDERED: NALOXONE 0.4 MG/ML 1 ML VIAL IV PRN (15:40)
[2023-10-29] MEDS: SODIUM CHLORIDE 0.9% 1,000 ML IV SCH (16:23)
[2023-10-29] MEDS ORDERED: ALBUTEROL NEBULIZED 2.5 MG/3 ML INHALATION PRN (21:33)
--- NOTE | 2023-10-29 21:35 | P.HPIM ---
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 Patient presents to ER with complaints of generalized weakness and lower back pain and unable to perform her activities of daily living. Patient is also antibiotics for urinary tract infection recently with nitrofurantoin. Patient states that he was recently at rehab. Patient also states that she tried getting onto elliptical bicycle. Since then he has been having lower back pain. He was discharged home recently on wheelchair.. Patient states that she is unable to get up and uses walker previously but currently unable to take care of herself at home and not able to get out of the bed. Otherwise denies any chest pain or shortness of breath. No numbness or tingling sensation in the legs. No nausea vomiting or abdominal pain or diarrhea. No cough or sputum production. Denies any fever or chills. EKG showed sinus bradycardia with first-degree AV block. Laboratory data showed WBC 5.0 hemoglobin 9.3 and platelets 343 MCV 84.7 RDW 18.8. Sodium 138 potassium 4.6 chloride 100 bicarb is 38 BUN 8 and creatinine 0.71 and blood sugar 95. AST 41 ALT 7 alk phos 60. Albumin 3.5. Urinalysis showed small blood nitrite negative leukocyte esterase negative. RBC is 1 and WBC is 1. Review of Systems Constitutional: Patient denies any fever or chills . Generalized weakness and fatigue Abdomen: Patient denied nausea vomiting and diarrhea and abdominal pain. Cardiovascular: Patient denies any chest pain or short of breath no palpitations. Respiratory: patient denied any cough or sputum production. No shortness of breath Neurologic: Patient denied any numbness or tingling. no headache. Musculoskeletal: Patient denies any complaints of joint swelling or deformity. Lower back pain. Complete review of systems could not be obtained from the patient. 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 Past Psychological History: Anxiety Additional Psychological History / Comment(s): . Smoking Status: Former smoker Past Alcohol Use History: None Reported Additional Past Alcohol Use History / Comment(s): 1 PPD STARTED SMOKING AT AGE 15 QUIT IN 1984 SMOKED 1PPD Past Drug Use History: None Reported - Past Family History Brother(s) Family Medical History: Cancer Sister(s) Family Medical History: Cancer Mother Additional Family Medical History / Comment(s): enlarged heart Medications and Allergies Home Medications Medication Instructions Recorded Confirmed Type Pantoprazole [Protonix] 40 mg PO DAILY 04/11/18 10/29/23 History Albuterol Inhaler [Ventolin Hfa 2 puff INHALATION RT-Q6H PRN 04/29/22 10/29/23 History Inhaler] Apixaban [Eliquis] 2.5 mg PO BID 04/29/22 10/29/23 History DULoxetine HCL [Cymbalta] 30 mg PO DAILY 04/29/22 10/29/23 History Furosemide [Lasix] 20 mg PO DAILY 04/29/22 10/29/23 History Isosorbide Mononitrate ER [Imdur] 30 mg PO DAILY 04/29/22 10/29/23 History Cholecalciferol [Vitamin D3 (25 25 mcg PO DAILY 09/30/22 10/29/23 History Mcg = 1000 Iu)] Ascorbic Acid [Vitamin C] 500 mg PO DAILY 10/27/22 10/29/23 History Clopidogrel [Plavix] 75 mg PO DAILY 30 Days #30 tab 12/28/22 10/29/23 Rx Atorvastatin [Lipitor] 10 mg PO DAILY 03/04/23 10/29/23 History Ferrous Sulfate [Iron (65 MG 325 mg PO DAILY 03/04/23 10/29/23 History Elemental)] QUEtiapine [SEROquel] 25 mg PO HS 08/01/23 10/29/23 History amLODIPine [Norvasc] 10 mg PO DAILY 09/05/23 10/29/23 History Acetaminophen-Codeine 300-30mg 1 tab PO Q6H PRN 3 Days #12 tablet 10/26/23 0 10/29/23 Rx [Tylenol w/codeine #3] Acetaminophen Tab [Tylenol] 325 mg PO Q6H PRN 10/29/23 10/29/23 History Donepezil [Aricept] 10 mg PO HS 10/29/23 10/29/23 History Melatonin 5 mg PO HS 10/29/23 10/29/23 History Nitrofurantoin Monohyd/M-Cryst 100 mg PO Q12HR 10/29/23 10/29/23 History [Macrobid] Allergies Allergy/AdvReac Type Severity Reaction Status Date / Time No Known Allergies Allergy Verified 10/29/23 17:23 Physical Exam Vitals: Vital Signs Temp Pulse Resp BP BP Pulse Ox 10/29/23 21:04 75 18 144/70 95 10/29/23 19:59 13 118/60 96 10/29/23 19:22 72 18 100/90 10/29/23 17:00 68 18 142/63 92 L 10/29/23 16:00 68 18 142/61 92 L 10/29/23 15:00 70 18 120/58 92 L 10/29/23 14:21 72 16 129/46 10/29/23 12:38 98.4 F 68 18 112/57 91 L Intake and Output 10/29/23 10/29/23 10/29/23 06:59 14:59 22:59 Other: Weight 56.699 kg 56.699 kg PHYSICAL EXAMINATION: Patient is lying in the bed,, no acute distress, awake alert and oriented.. HEENT: Normocephalic. Neck is supple. Pupils reactive. Nostrils clear. Oral cavity is moist. Neck reveals no JVD, carotid bruits, or thyromegaly. CHEST EXAMINATION: Trachea is central. Symmetrical expansion. Bibasilar diminished sounds. Lung everett clear to auscultation and percussion. CARDIAC: Normal S1, S2 with no gallops. No murmurs ABDOMEN: Soft. Bowel sounds normal. No organomegaly. No abdominal bruits. Extremities: reveal no edema. No clubbing or cyanosis Neurologically awake, alert, oriented x 2-3 left-sided weakness. Sensory intact. Cognitive impairment. Skin: No rash or skin lesions. Psychiatric: Coperative. Denied suicidal ideation. Musculoskeletal: No joint swelling or deformity. Results CBC & Chem 7: 10/29/23 13:58 10/29/23 13:58 Labs: Abnormal Lab Results - Last 24 Hours (Table) 10/29/23 10/29/23 10/29/23 Range/Units 13:58 13:58 14:21 RBC 3.63 L (3.80-5.40) m/uL Hgb 9.3 L (11.4-16.0) gm/dL Hct 30.8 L (34.0-46.0) % MCHC 30.3 L (31.0-37.0) g/dL RDW 18.8 H (11.5-15.5) % Carbon Dioxide 38 H (22-30) mmol/L AST 41 H (14-36) U/L Urine Blood Small H (Negative) Urine Bacteria Few H (None) /hpf Urine Mucus Rare H (None) /hpf Thrombosis Risk Factor Assmnt - DVT/VTE Prophylaxis DVT/VTE Prophylaxis: Pharmacologic Prophylaxis ordered - Choose All That Apply Any of the Below Risk Factors Present?: No Other Risk Factors: Yes Each Risk Factor Represents 3 Points: Age 75 years or older Other congenital or acquired thrombophilia - If yes, enter type in comment: No Thrombosis Risk Factor Assessment Total Risk Factor Score: 3 Thrombosis Risk Factor Assessment Level: Moderate Risk Assessment and Plan Assessment: Lower back pain and unable to get out of bed and perform ADLs.. Generalized weaknessHistory of CVA x 2 with residual left-sided weakness. Patient uses walker at baseline COPD not in exacerbation Chronic CHF EF not known History of DVT Hypertension Hyperlipidemia Osteoarthritis History of breast cancer status post surgery Anxiety Remote history of back surgery Prior history of smoking Dementia/cognitive impairment DVT prophylaxis patient is already on anticoagulation with Eliquis at home Plan: Patient will be continued on pain management with Tylenol 3 and was given a dose of IV Toradol. CT of the lumbar spine was ordered. Continue with home blood pressure medications and anticoagulation with Eliquis. Continue with iron supplementation. Stool softeners as needed. Patient was started back on Seroquel and donepezil PT OT will be consulted and possible rehab transfer. Time with Patient: Greater than 30
--- NOTE | 2023-10-29 22:27 | XR ---
EXAMINATION TYPE: XR chest 1V DATE OF EXAM: 10/29/2023 CLINICAL HISTORY: CHF TECHNIQUE: Single frontal view of the chest is obtained. COMPARISON: Chest x-ray July 31, [id number] FINDINGS: There is persistent cardiomegaly. Increased interstitial markings bilaterally remain prese nt. No new focal airspace opacity, pleural effusion, or pneumothorax seen bilaterally. Degenerative c hange bilateral glenohumeral joints redemonstrated. IMPRESSION: Chronic parenchymal changes and cardiomegaly without acute pulmonary process.
[2023-10-29] MEDS: KETOROLAC 15 MG/ML 1 ML VIAL IVP STA (22:43)
[2023-10-29] MEDS: APIXABAN 2.5 MG TABLET PO SCH (22:44)
[2023-10-29] MEDS: QUEtiapine 25 MG TAB PO SCH (23:11)
--- NOTE | 2023-10-30 07:48 | CT ---
EXAMINATION TYPE: CT lumbar spine wo con CT DLP: 872.2 mGycm, Automated exposure control for dose reduction was used. DATE OF EXAM: 10/29/2023 11:12 PM COMPARISON: 09/15/2023. CLINICAL INDICATION: Female, 88 years old with history of Lower back pain; TECHNIQUE: Multiple axial images were obtained from the midportion of T11 through the sacroiliac wagner nts. Soft tissue and bone windows in coronal and sagittal planes were obtained and reviewed. 3-D ref ormats of the bones were created on a separate workstation and submitted for review. Contrast used: mL of , (None, if empty). Oral contrast used: (None, if empty). FINDINGS: Alignment: There are 5 lumbar type vertebral bodies within normal alignment. Bone: Multilevel degeneration changes of the spine with disc space narrowing osteophytes ration and f acet joint arthropathy. Postsurgical changes at L5-S1 anteriorly with hardware intact. Pseudoarthrosi s of the spinous processes. Discs: T12-L1: Facet joint arthropathy and disc bulging and osteophytes result with severe spinal canal sten osis and severe right and moderate left neural foraminal stenosis. L1-L2: Facet joint arthropathy and disc bulging and osteophytes result with severe spinal canal steno sis and moderate to severe bilateral neural foraminal stenosis. L2-L3: Facet joint arthropathy and disc bulging and osteophytes result with severe spinal canal steno sis and moderate to severe bilateral neural foraminal stenosis. L3-L4: Facet joint arthropathy and disc bulging and osteophytes result with severe spinal canal steno sis and moderate to severe bilateral neural foraminal stenosis. L4-L5: Facet joint arthropathy and disc bulging result with moderate to severe spinal canal stenosis and moderate bilateral neural foraminal stenosis. L5-S1: Facet joint arthropathy and disc bulging result with mild spinal canal stenosis and moderate b ilateral neural foraminal stenosis. 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 Right common iliac artery dilation up to 2.8 cm. Scattered colonic diverticula. The gallbladder surgically absent. IMPRESSION: 1. No evidence of fracture. 2. Severe degeneration changes of the spine as described above with multilevel high-grade stenosis o f the spinal canal and neural foramen. 3. Fixation hardware intact. 4. 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 5. Infrarenal abdominal aorta aneurysm measuring up to 5.4 cm. As well as right common iliac artery dilation up to 2.8 cm Surgical consultation recommended.
[2023-10-30] MEDS: DULoxetine HCL 30 MG CAPSULE.DR PO SCH (08:09)
[2023-10-30] MEDS: FUROSEMIDE 20 MG TAB PO SCH (08:09)
[2023-10-30] MEDS: ATORVASTATIN 10 MG TAB PO SCH (08:09)
[2023-10-30] MEDS: FERROUS SULFATE 325 MG TAB PO SCH (08:09)
[2023-10-30] MEDS: CHOLECALCIFEROL 25 MCG (1000 IU) TABLET PO SCH (08:09)
[2023-10-30] MEDS: CLOPIDOGREL 75 MG TAB PO SCH (08:09)
[2023-10-30] MEDS: ISOSORBIDE MONONITRATE ER 30 MG TAB.ER.24H PO SCH (08:09)
[2023-10-30] MEDS: amLODIPine 10 MG TAB PO SCH (08:09)
[2023-10-30] MEDS: PANTOPRAZOLE 40 MG TABLET PO SCH (08:09)
[2023-10-30 09:04] LABS: Basophils # (A) 0.06 X 10*3/uL (0.00-0.10); Basophils % (A) 0.8 %; Eosinophils # (A) 0.12 X 10*3/uL (0.04-0.35); Eosinophils % (A) 1.7 %; HCT 29.7 % (37.2-46.3); Lymphocytes # (A) 1.67 X 10*3/uL (0.90-5.00); Lymphocytes % (A) 23.6 %; MCH 25.6 pg (27.0-32.0); MCHC 30.3 g/dL (32.0-37.0); MCV 84.4 FL (80.0-97.0); Mean Platelet Volume 9.2 FL (9.5-12.2); Monocytes # (A) 0.69 X 10*3/uL (0.20-1.00); Monocytes % (A) 9.7 %; NRBC Per 100 WBC 0 X 10*3/uL (0.00-0.01); Neutrophils # (A) 4.53 X 10*3/uL (1.80-7.70); Neutrophils % (A) 63.9 %; Platelet Count 350 X 10*3/uL (140-440); RBC 3.52 X 10*6/uL (4.10-5.20); RDW 20.1 % (11.5-14.5); WBC 7.09 X 10*3/uL (4.50-10.00)
[2023-10-30 10:26] LABS: BUN/Creat Ratio 10.88 Ratio (12.00-20.00); Blood Urea Nitrogen 8.7 mg/dL (9.0-27.0); Calcium 9.1 mg/dL (8.7-10.3); Carbon Dioxide 30.8 mmol/L (21.6-31.8); Chloride 99 mmol/L (96-109); Glucose 107 mg/dL (70-110); Potassium 2.9 mmol/L (3.5-5.5); Sodium 141 mmol/L (135-145)
[2023-10-30] MEDS ORDERED: Potassium Replacement Protocol 1 EACH MISC MISCELLANE PRN (14:42)
[2023-10-30] MEDS: POTASSIUM CHLORIDE ER 20 MEQ TAB.ER PO SCH (14:53)
[2023-10-30] MEDS: DONEPEZIL 10 MG TAB PO SCH (20:34)
[2023-10-30] MEDS: Acetaminophen-Codeine 300-30mg TAB PO PRN (22:34)
--- NOTE | 2023-10-30 23:56 | P.PN ---
Subjective Progress Note Date: 10/30/23 HISTORY OF PRESENT ILLNESS: 88-year-old with active medical history of CVA with left-sided weakness walk with a walker, chronic history of COPD, chronic CHF, history of DVT, hypert ension, hyperlipidemia, osteoarthritis, worsening dementia, previous history of breast cancer postsurgery she was recently hospitalized and transferred to [facility] for rehab did not do well continue to be wheelchair-bound continue to require more than 1 person computer assistant Long talk with the family about the need for assisted living and probably more placement with decline she has 2 children both decide on taking her home and hire extra help apparently did not work for too long less than a week after discharge from [facility] brought to the emergency department with complaint of severe tiredness fatigue not been able to care for herself not been able to get in bed move her to self to the chair has been having slight shortness of breath on and off with chronic lower back pain. Her workup in the emergency department did not show any major abnormality with her lab value close to its baseline. Urine test was negative at this point patient still currently being treated for UTI with oral Macrodantin. REVIEW OF SYSTEMS: CONSTITUTIONAL: Elderly slightly confused in no acute respiratory distress. EYES: No icterus sclerae, no conjunctivitis. EARS, NOSE, MOUTH, THROAT, and FACE: No sore throat, lymphadenopathy, carotid bruits or deformity. RESPIRATORY: No SOB cough or wheezes. CARDIOVASCULAR: No CP, Palpitation, PND, Orthopnea, or angina. Positive arrhythmia. GASTROINTESTINAL: No Abd pain, Nausea or vomiting, no Diarrhea or constipation, No GI Bleed, no distention or masses. GENITOURINARY: Negative for Hematuria or UTI, no kidney stones. INTEGUMENT/BREAST: Negative for any muscular injury with mild osteoarthritis.. Significant back pain. HEMATOLOGIC/LYMPHATIC: Negative for bleed or purpura. MUSCULOSKELTAL: Negative for Myalgia or arthralgia. NEURLOGICAL: No LOC, Sz or syncope, blurred vision dizziness or abnormality.. BEHAVIORAL/PSYCH: Negative. ENDOCRINE: Negative. PHYSICAL EXAMINATION: General Appearance: Alert, cooperative, significantly confused no acute respiratory distress. Neck HEENT: Supple, no lymphadenopathy, no thyroid enlargement, no carotid bruits. Lungs: Clear to auscultation without crackles or wheezes no rhonchi, no deformity. Chest Wall: Chest wall normal expansion with deep inspiration no tenderness and no deformity was found on exam, no costochondral pain or discomfort. Heart: Irregular rate and rhythm, S1, S2 normal, no murmur, rub or gallop. Back: Significant discomfort lower back area with significant scoliosis and mild kyphosis with slight tenderness in the lumbar spine. Abdomen: Soft, non-tender, bowel sounds active all four quadrants, no masses, no organomegaly. Extremities: Extremities normal, atraumatic, no cyanosis or edema. Pulses: 2+ and symmetric. Skin: Skin color, texture, tugor normal, no rashes or lesions. Neurologic: Alert significantly confused, cranial nerves II through XII intact, slight generalized weakness in the right side compared to the left side with severe abnormal balance and gait. ASSESSMENT AND PLAN: _Debility: Secondary to overall general condition with chronic lower back pain, previous history of CVA, COPD, advanced dementia patient most likely require placement and further at assisted living or fpc. _Lower back pain: Mostly skeletal muscular continue Tylenol along with topical medication. _UTI with recurrent UTI: Was placed on Macrodantin continue medication. _History of CVA x 2 with residual left-sided weakness still require more help not safe to walk by herself able to ambulate with wheelchair mostly walker with one-person computer assistant. Require more physical therapy. _History of COPD with no flareup lately remain on updraft treatment and O2. _CHF mostly systolic dysfunction with ejection fraction around 45 percentile, still medication resume home meds. _Advanced dementia: Has been on donepezil and Seroquel continue both medication. Hypertension: Stable on current medication. GI prophylaxis: Remain on Pepcid. A-fib with RVR: Pulse rates under control continue Eliquis. CODE STATUS: Full code. Objective - Vital Signs Vital signs: Vital Signs Temp 98.4 F 10/29/23 12:38 Pulse 84 10/30/23 06:27 Resp 18 10/30/23 06:27 BP 105/59 10/30/23 06:27 Pulse Ox 97 10/29/23 23:49 FiO2 Intake & Output 10/29/23 10/29/23 10/30/23 06:59 18:59 06:59 Weight 56.699 kg 56.699 kg - Labs CBC & Chem 7: 10/30/23 06:25 10/30/23 06:25 Labs: Abnormal Lab Results - Last 24 Hours (Table) 10/29/23 10/29/23 10/29/23 Range/Units 13:58 13:58 14:21 RBC 3.63 L (3.80-5.40) m/uL Hgb 9.3 L (11.4-16.0) gm/dL Hct 30.8 L (34.0-46.0) % MCHC 30.3 L (31.0-37.0) g/dL RDW 18.8 H (11.5-15.5) % Carbon Dioxide 38 H (22-30) mmol/L AST 41 H (14-36) U/L Urine Blood Small H (Negative) Urine Bacteria Few H (None) /hpf Urine Mucus Rare H (None) /hpf
[2023-10-31 06:52] LABS: African American GFR (CKD) 87 (>60 ml/min/1.73 sqM); Anion Gap 0 mmol/L; Blood Urea Nitrogen 9 mg/dL (7-17); Calcium 8.9 mg/dL (8.4-10.2); Carbon Dioxide 35 mmol/L (22-30); Chloride 103 mmol/L (98-107); Glucose 85 mg/dL (74-99); Non-African American GFR(CKD) 76 (>60 ml/min/1.73 sqM); Potassium 3.8 mmol/L (3.5-5.1); Sodium 138 mmol/L (137-145)
[2023-10-31 06:56] LABS: Anisocytosis Slight; HCT 29.3 % (34.0-46.0); HGB 9.2 gm/dL (11.4-16.0); Hypochromasia Marked; MCH 27.1 pg (25.0-35.0); MCHC 31.5 g/dL (31.0-37.0); MCV 85.8 fL (80.0-100.0); Mean Platelet Volume 6.5; RBC 3.41 m/uL (3.80-5.40); RDW 19.3 % (11.5-15.5); WBC 10.4 k/uL (3.8-10.6)
[2023-10-31 08:21] LABS: ALT 6 U/L (4-34); AST 21 U/L (14-36); African American GFR (CKD) 88 (>60 ml/min/1.73 sqM); Albumin 2.9 g/dL (3.5-5.0); Alkaline Phosphatase 64 U/L (38-126); Anion Gap 1 mmol/L; Blood Urea Nitrogen 9 mg/dL (7-17); Calcium 9.1 mg/dL (8.4-10.2); Carbon Dioxide 35 mmol/L (22-30); Chloride 103 mmol/L (98-107); Glucose 82 mg/dL (74-99); Magnesium 1.6 mg/dL (1.6-2.3); Non-African American GFR(CKD) 77 (>60 ml/min/1.73 sqM); Potassium 4.1 mmol/L (3.5-5.1); Sodium 139 mmol/L (137-145); Total Bilirubin 0.5 mg/dL (0.2-1.3); Total Protein 5.2 g/dL (6.3-8.2)
[2023-10-31 08:30] LABS: Band Neutrophils % 1 %; Eosinophils # (M) 0.42 k/uL (0-0.7); Lymphocytes # (M) 4.16 k/uL (1.0-4.8); Monocytes # (M) 1.04 k/uL (0-1.0); Neutrophils % (M) 46 %; Nucleated Red Blood Cells 0 /100 WBC (0-0); Total Cells Counted 200
[2023-10-31 08:31] LABS: Ovalocytes Present
[2023-10-31 08:32] LABS: Platelet Count 301 k/uL (150-450)
--- NOTE | 2023-10-31 08:58 | CT ---
EXAMINATION TYPE: CT noncontrast CT abdomen and pelvis and CTA angio thor/abd pel aorta DATE OF EXAM: 10/31/2023 8:40 AM COMPARISON: 09/23/2023 HISTORY: AAA of 5.[address] DLP: 1110.1 mGycm Automated exposure control for dose reduction was used. TECHNIQUE: Performed with IV Contrast, patient injected with 100 mL of Isovue 370. . FINDINGS: There are changes of pulmonary fibrosis and COPD with basilar areas of subsegmental scarring or atele ctasis. The heart is enlarged. Thoracic aorta demonstrates atherosclerotic changes. There is a 5.3 x 5.0 cm infrarenal abdominal aortic aneurysm with extension into the common iliac vas culature greater on the right with aneurysmal dilation noted to measure 2.6 cm. Cardiomegaly with atherosclerotic change of the thoracic aorta and aortic valve. Dense coronary arter y calcifications. The bladder is nondistended. No free fluid or free air. Bowel gas pattern nonspecific. Changes of div erticulosis. Visualized celiac axis and SMA enhance with stenosis at the origin of the celiac axis. The liver is low in attenuation suggestive of underlying hepatocellular disease or hepatic steatosis. Peripheral enhancement along the liver is nonspecific. Pancreas normal. Adrenal glands normal morphology. No hydronephrosis or nephrolithiasis. Spleen sandeep l in size. Multilevel hypertrophic and degenerative changes spine. Generalized osteopenia. Postsurgical changes lumbosacral junction. Bilateral arthropathy and SI joint arthropathy. IMPRESSION: 1 THERE REMAINS A 5.4 X 5 CM INFRARENAL LARGE ABDOMINAL AORTIC ANEURYSM WITH EXTENSION INTO THE RIGHT ILIAC ARTERY. RECOMMEND SURGICAL CONSULTATION. 2. DIVERTICULOSIS. 3 COPD with changes of the pulmonary fibrosis. 4. Findings suggestive of underlying hepatic steatosis or hepatocellular disease correlate with liver function studies.
--- NOTE | 2023-10-31 09:19 | P.CNOR ---
History of Present Illness - HPI Consult date: 10/31/23 Requesting physician: Tacos Saha Consult reason: low back pain History of present illness: History of Presenting Illness Patient is a pleasant 88-year-old female who presented to the ER via EMS for debility. Patient has a medical history of CVA with left-sided weakness, chronic history of COPD, chronic CHF, history of DVT, hypertension, hyperlipidemia, osteoarthritis, worsening dementia, previous history of breast cancer. Patient has been residing at home with family support. She states she was recently hospitalized and discharged to [facility] for rehab. Patient was advised she would need prison care. Family had chosen to take patient home to care or her and this has become overwhelming. Patient states she has become weak and has not been able to perform her ADLS. Patient does report a past history of back surgery that was performed many years ago at [facility], she is unaware of surgeon. Patient seen and examined in the observation unit. She is resting comfortably in bed. Patient states she has chronic back pain that is diffuse across her lumbar region. She denies any radiculopathy, numbness/tingling into the lower extremities. She denies any perineal numbness or tingling, loss of bowel or bladder control. She states she has not had any increase in her back pain and is not interested in any surgical intervention or pain management consult. She reports that she would like to stay on her current regimen and knows that she needs to go to rehab. CT of the lumbar spine taken on 10/29/2023 demonstrates severe degeneration changes of the lumbar spine with high-grade stenosis of the spinal canal and neural foramen. There is postsurgical changes at L5-S1 anteriorly with hardware intact. 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 There is also right and for renal abdominal aortic aneurysm measuring up to 5.4 cm. As well as right common iliac artery dilation up to 2.8 cm. Surgical consult was ordered. Review of Systems Pertinent positives and negatives as discussed in HPI, a complete review of systems was performed and all other systems are negative. Physical Examination General: The patient is awake and alert, in no acute distress Skin: Skin is warm and dry with no obvious rashes or lesions. Eye: Pupils are equal, round and reactive to light, extra-ocular movements are intact; there is normal conjunctiva bilaterally. Neck: The neck is supple, there is no tenderness and ROM intact. Cardiovascular: There is a regular rate and rhythm. No murmur, rub or gallop is appreciated. Respiratory: Respirations are non-labored, breath sounds are equal. Gastrointestinal: Soft, slightly distended, tender abdomen to palpation Back: There is no tenderness to palpation in the midline, paralumbar, paratho racic or buttocks region. There is no obvious deformity. Musculoskeletal: Right: Shoulder abduction 4+/5, elbow flexors 4+/5, wrist dorsiflexors 4+/5. finger abductor 4+/5, block captain 4+/5, hip flexor 4/5, knee flexor 4/5, ankle dorsiflexor 4/5, ankle plantarflexion 4/5 and extensor hallucis 4/5. Left: Shoulder abduction 4/5, elbow flexors 4/5, wrist dorsiflexors 4/5. finger abductor 4/5, block captain 4/5, hip flexor 4-/5, knee flexor 4-/5, ankle dorsiflexor 4-/5, ankle plantarflexion 4-/5 and extensor hallucis 4-/5. Neurological: CN 2-12 intact. There are no obvious motor or sensory deficits. Movement and coordination equal and intact. Sensory exam to light touch intact C 5-T1 and intact from L2-S1. Reflexes 2/4 in bilateral upper and lower extremities. Negative Hoffmans, babinski, and clonus signs. Psychiatric: Cooperative, appropriate mood & affect, normal judgment. Assessment and Plan Severe lumbar spondylosis with stenosis History of L5-S1 decompression and fusion Chronic mechanical low back pain Generalized weakness Multiple complex comorbidities At this time we do not recommend any emergent/urgent orthopedic surgical intervention. Patient may follow-up with Dr. Morse office for further evaluation as needed. Orthopedics is signing off at this time. Please do not hesitate to contact us for any further questions. 2. Appreciate medical management 3. Pain management -continue with Tylenol and topical medications, patient may benefit from lidocaine patches. 4. GI prophylaxis -Per medicine 5. DVT prophylaxis -Eliquis 6. PT/OT - weightbearing as tolerated with a walker as needed. 7. Appreciate consult I reviewed and discussed this case with my attending Dr. Morse, whom has reviewed this chart and films and is in agreement with assessment and plan of care as outlined above. I have personally seen and examined the patient, performed the documentation and the assessment and plan as written. Number of minutes spent on the visit: 30m. 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 Past Psychological History: Anxiety Additional Psychological History / Comment(s): . Smoking Status: Former smoker Past Alcohol Use History: None Reported Additional Past Alcohol Use History / Comment(s): 1 PPD STARTED SMOKING AT AGE 15 QUIT IN 1984 SMOKED 1PPD Past Drug Use History: None Reported - Past Family History Brother(s) Family Medical History: Cancer Sister(s) Family Medical History: Cancer Mother Additional Family Medical History / Comment(s): enlarged heart Medications and Allergies Home Medications Medication Instructions Recorded Confirmed Type Pantoprazole [Protonix] 40 mg PO DAILY 04/11/18 10/29/23 History Albuterol Inhaler [Ventolin Hfa 2 puff INHALATION RT-Q6H PRN 04/29/22 10/29/23 History Inhaler] Apixaban [Eliquis] 2.5 mg PO BID 04/29/22 10/29/23 History DULoxetine HCL [Cymbalta] 30 mg PO DAILY 04/29/22 10/29/23 History Furosemide [Lasix] 20 mg PO DAILY 04/29/22 10/29/23 History Isosorbide Mononitrate ER [Imdur] 30 mg PO DAILY 04/29/22 10/29/23 History Cholecalciferol [Vitamin D3 (25 25 mcg PO DAILY 09/30/22 10/29/23 History Mcg = 1000 Iu)] Ascorbic Acid [Vitamin C] 500 mg PO DAILY 10/27/22 10/29/23 History Clopidogrel [Plavix] 75 mg PO DAILY 30 Days #30 tab 12/28/22 10/29/23 Rx Atorvastatin [Lipitor] 10 mg PO DAILY 03/04/23 10/29/23 History Ferrous Sulfate [Iron (65 MG 325 mg PO DAILY 03/04/23 10/29/23 History Elemental)] QUEtiapine [SEROquel] 25 mg PO HS 08/01/23 10/29/23 History amLODIPine [Norvasc] 10 mg PO DAILY 09/05/23 10/29/23 History Acetaminophen-Codeine 300-30mg 1 tab PO Q6H PRN 3 Days #12 tablet 10/26/23 Rx [Tylenol w/codeine #3] Acetaminophen Tab [Tylenol] 325 mg PO Q6H PRN 10/29/23 10/29/23 History Donepezil [Aricept] 10 mg PO HS 10/29/23 10/29/23 History Melatonin 5 mg PO HS 10/29/23 10/29/23 History Nitrofurantoin Monohyd/M-Cryst 100 mg PO Q12HR 10/29/23 10/29/23 History [Macrobid] Allergies Allergy/AdvReac Type Severity Reaction Status Date / Time No Known Allergies Allergy Verified 10/29/23 17:23 Results - Labs Labs: Abnormal Lab Results - Last 24 Hours (Table) 10/30/23 10/30/23 10/31/23 Range/Units 06:25 06:25 05:45 RBC 3.52 L (4.10-5.20) X 10*6/uL Hgb 9.0 L (12.0-15.0) g/dL Hct 29.7 L (37.2-46.3) % MCH 25.6 L (27.0-32.0) pg MCHC 30.3 L (32.0-37.0) g/dL RDW 20.1 H (11.5-14.5) % MPV 9.2 L (9.5-12.2) FL Potassium 2.9 L (3.5-5.5) mmol/L Carbon Dioxide 35 H (22-30) mmol/L BUN 8.7 L (9.0-27.0) mg/dL BUN/Creatinine Ratio 10.88 L (12.00-20.00) Ratio Total Protein (6.3-8.2) g/dL Albumin (3.5-5.0) g/dL 10/31/23 10/31/23 Range/Units 06:37 07:53 RBC 3.41 L (4.10-5.20) X 10*6/uL Hgb 9.2 L (12.0-15.0) g/dL Hct 29.3 L (37.2-46.3) % MCH (27.0-32.0) pg MCHC (32.0-37.0) g/dL RDW 19.3 H (11.5-14.5) % MPV (9.5-12.2) FL Potassium (3.5-5.5) mmol/L Carbon Dioxide 35 H (22-30) mmol/L BUN (9.0-27.0) mg/dL BUN/Creatinine Ratio (12.00-20.00) Ratio Total Protein 5.2 L (6.3-8.2) g/dL Albumin 2.9 L (3.5-5.0) g/dL H & H 10/29/23 10/30/23 10/31/23 Range/Units 13:58 06:25 06:37 Hgb 9.3 L 9.0 L 9.2 L (11.4-16.0) gm/dL Hct 30.8 L 29.7 L 29.3 L (34.0-46.0) % Result Diagrams: 10/31/23 06:37 10/31/23 07:53
--- NOTE | 2023-10-31 10:43 | P.GSCN ---
History of Present Illness Consult date: 10/31/23 Reason for Consult: AAA Requesting physician: Tacos Saha History of present illness: This a pleasant 88-year-old -[place] female who presented to the emergency department for complaints of weakness, back pain and not being able to care for herself looking for placement to custodial. She has a past medical history including AAA, heart failure, COPD, CVA, dementia, DVT, hyperlipidemia, hypertension, and breast cancer. This patient was recently seen by vascular surgery during her last admission on 09/24/2023 for abdominal aortic aneurysm with recommendations for outpatient follow-up and surveillance. At this admission she had a CT of lumbar spine with reported findings of infrarenal abdominal aortic aneurysm with right common iliac artery aneurysm and therefore vascular surgery was consulted. Patient denies any abdominal pain, no nausea or vomiting, she does states she has low back pain that is chronic. Denies any chest pain or shortness of breath. CT lumbar spine without contrast reported infrarenal abdominal aorta aneurysm measuring up to 5.4 cm as well as right common iliac artery dilation up to 2.8 cm surgical consultation recommended. Vascular surgery was consulted. Previous CT abdomen pelvis without intravenous contrast reported Arthrosclerosis. Infrarenal abdominal aortic aneurysm measuring 5.0 x 5.3 cm. Surgical consultation advised. Right common iliac artery aneurysm measuring 2.[address] angiogram of the chest in April 2022 that had reported a 4.9 cm abdominal aortic aneurysm with common iliac artery dilation of 2.8 cm. Review of Systems A 14 point review systems was completed all pertinent positives and negatives as stated in the HPI. 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 Past Psychological History: Anxiety Additional Psychological History / Comment(s): . Smoking Status: Former smoker Past Alcohol Use History: None Reported Additional Past Alcohol Use History / Comment(s): 1 PPD STARTED SMOKING AT AGE 15 QUIT IN 1984 SMOKED 1PPD Past Drug Use History: None Reported - Past Family History Brother(s) Family Medical History: Cancer Sister(s) Family Medical History: Cancer Mother Additional Family Medical History / Comment(s): enlarged heart Medications and Allergies Home Medications Medication Instructions Recorded Confirmed Type Pantoprazole [Protonix] 40 mg PO DAILY 04/11/18 10/29/23 History Albuterol Inhaler [Ventolin Hfa 2 puff INHALATION RT-Q6H PRN 04/29/22 10/29/23 History Inhaler] Apixaban [Eliquis] 2.5 mg PO BID 04/29/22 10/29/23 History DULoxetine HCL [Cymbalta] 30 mg PO DAILY 04/29/22 10/29/23 History Furosemide [Lasix] 20 mg PO DAILY 04/29/22 10/29/23 History Isosorbide Mononitrate ER [Imdur] 30 mg PO DAILY 04/29/22 10/29/23 History Cholecalciferol [Vitamin D3 (25 25 mcg PO DAILY 09/30/22 10/29/23 History Mcg = 1000 Iu)] Ascorbic Acid [Vitamin C] 500 mg PO DAILY 10/27/22 10/29/23 History Clopidogrel [Plavix] 75 mg PO DAILY 30 Days #30 tab 12/28/22 10/29/23 Rx Atorvastatin [Lipitor] 10 mg PO DAILY 03/04/23 10/29/23 History Ferrous Sulfate [Iron (65 MG 325 mg PO DAILY 03/04/23 10/29/23 History Elemental)] QUEtiapine [SEROquel] 25 mg PO HS 08/01/23 10/29/23 History amLODIPine [Norvasc] 10 mg PO DAILY 09/05/23 10/29/23 History Acetaminophen-Codeine 300-30mg 1 tab PO Q6H PRN 3 Days #12 tablet 10/26/23 10/29/23 Rx [Tylenol w/codeine #3] Acetaminophen Tab [Tylenol] 325 mg PO Q6H PRN 10/29/23 10/29/23 History Donepezil [Aricept] 10 mg PO HS 10/29/23 10/29/23 History Melatonin 5 mg PO HS 10/29/23 10/29/23 History Nitrofurantoin Monohyd/M-Cryst 100 mg PO Q12HR 10/29/23 10/29/23 History [Macrobid] Allergies Allergy/AdvReac Type Severity Reaction Status Date / Time No Known Allergies Allergy Verified 10/29/23 17:23 Surgical - Exam Vital Signs Temp Pulse Resp BP Pulse Ox 98.4 F 68 18 112/57 91 L 10/29/23 12:38 10/29/23 12:38 10/29/23 12:38 10/29/23 12:38 10/29/23 12:38 General appearance: The patient is alert, oriented, appears in no acute distress. HET: Head is normocephalic and atraumatic. Pupils are equal and reactive. Neck: Supple. No carotid bruit. Heart: Regular. Lungs: Equal expansion, normal respiratory effort. Abdomen: Soft, nontender, nondistended. Extremities: Normal skin color and turgor. Palpable radial and DP pulses. Neurological: No focal deficits. Results - Labs 10/31/23 06:37 10/31/23 07:53 Abnormal Lab Results - Last 24 Hours (Table) 10/30/23 10/30/23 10/31/23 Range/Units 06:25 06:25 05:45 RBC 3.52 L (4.10-5.20) X 10*6/uL Hgb 9.0 L (12.0-15.0) g/dL Hct 29.7 L (37.2-46.3) % MCH 25.6 L (27.0-32.0) pg MCHC 30.3 L (32.0-37.0) g/dL RDW 20.1 H (11.5-14.5) % MPV 9.2 L (9.5-12.2) FL Monocytes # (Manual) (0-1.0) k/uL Potassium 2.9 L (3.5-5.5) mmol/L Carbon Dioxide 35 H (22-30) mmol/L BUN 8.7 L (9.0-27.0) mg/dL BUN/Creatinine Ratio 10.88 L (12.00-20.00) Ratio Total Protein (6.3-8.2) g/dL Albumin (3.5-5.0) g/dL 10/31/23 10/31/23 Range/Units 06:37 07:53 RBC 3.41 L (4.10-5.20) X 10*6/uL Hgb 9.2 L (12.0-15.0) g/dL Hct 29.3 L (37.2-46.3) % MCH (27.0-32.0) pg MCHC (32.0-37.0) g/dL RDW 19.3 H (11.5-14.5) % MPV (9.5-12.2) FL Monocytes # (Manual) 1.04 H (0-1.0) k/uL Potassium (3.5-5.5) mmol/L Carbon Dioxide 35 H (22-30) mmol/L BUN (9.0-27.0) mg/dL BUN/Creatinine Ratio (12.00-20.00) Ratio Total Protein 5.2 L (6.3-8.2) g/dL Albumin 2.9 L (3.5-5.0) g/dL Diabetes panel 10/30/23 10/31/23 10/31/23 Range/Units 06:25 05:45 07:53 Sodium 141 138 139 (135-145) mmol/L Potassium 2.9 L 3.8 4.1 (3.5-5.5) mmol/L Chloride 99 103 103 (96-109) mmol/L Carbon Dioxide 30.8 35 H 35 H (21.6-31.8) mmol/L BUN 8.7 L 9 9 (9.0-27.0) mg/dL Creatinine 0.8 0.72 0.71 (0.6-1.5) mg/dL Glucose 107 85 82 (70-110) mg/dL Calcium 9.1 8.9 9.1 (8.7-10.3) mg/dL AST 21 (14-36) U/L ALT 6 (4-34) U/L Alkaline Phosphatase 64 (38-126) U/L Total Protein 5.2 L (6.3-8.2) g/dL Albumin 2.9 L (3.5-5.0) g/dL Calcium panel 10/30/23 10/31/23 10/31/23 Range/Units 06:25 05:45 07:53 Calcium 9.1 8.9 9.1 (8.7-10.3) mg/dL Albumin 2.9 L (3.5-5.0) g/dL Pituitary panel 10/30/23 10/31/23 10/31/23 Range/Units 06:25 05:45 07:53 Sodium 141 138 139 (135-145) mmol/L Potassium 2.9 L 3.8 4.1 (3.5-5.5) mmol/L Chloride 99 103 103 (96-109) mmol/L Carbon Dioxide 30.8 35 H 35 H (21.6-31.8) mmol/L BUN 8.7 L 9 9 (9.0-27.0) mg/dL Creatinine 0.8 0.72 0.71 (0.6-1.5) mg/dL Glucose 107 85 82 (70-110) mg/dL Calcium 9.1 8.9 9.1 (8.7-10.3) mg/dL Adrenal panel 10/30/23 10/31/23 10/31/23 Range/Units 06:25 05:45 07:53 Sodium 141 138 139 (135-145) mmol/L Potassium 2.9 L 3.8 4.1 (3.5-5.5) mmol/L Chloride 99 103 103 (96-109) mmol/L Carbon Dioxide 30.8 35 H 35 H (21.6-31.8) mmol/L BUN 8.7 L 9 9 (9.0-27.0) mg/dL Creatinine 0.8 0.72 0.71 (0.6-1.5) mg/dL Glucose 107 85 82 (70-110) mg/dL Calcium 9.1 8.9 9.1 (8.7-10.3) mg/dL Total Bilirubin 0.5 (0.2-1.3) mg/dL AST 21 (14-36) U/L ALT 6 (4-34) U/L Alkaline Phosphatase 64 (38-126) U/L Total Protein 5.2 L (6.3-8.2) g/dL Albumin 2.9 L (3.5-5.0) g/dL - Imaging Comments: CT angiogram thoracic/abdomen pelvis aorta reports 5.4 x 5 cm infrarenal large abdominal aortic aneurysm with extension into the right iliac artery. Recommend surgical consultation. Diverticulosis. COPD with changes of the pulmonary fibrosis. Findings suggestive of underlying hepatic steatosis or hepatocellular disease correlate with liver function studies. Assessment and Plan Assessment: 1. Asymptomatic abdominal aortic aneurysm unchanged 2. Right common iliac artery dilation, unchanged 3. Generalized weakness and debility 4. Former smoker 5. Hypertension 6. Hyperlipidemia 7. COPD 8. History of CVA 9. chronic low back pain Plan: CT findings reviewed with essentially no change from previous findings. Patient is asymptomatic. There is no indication for any vascular surgical intervention at this time. Discussed findings with patient and need for continued surveillance in the outpatient setting to monitor for possible need for surgical intervention in the future. Patient states she is not interested in any surgical procedures or interventions. No further workup indicated. Continue medical management per primary medical team. Thank you for this consultation, we will sign off at this time. The impression and plan of care has been dictated as directed. Dr. Jay I performed a history and examination of this patient, discussed the same with the dictator. I agree with the dictator's note ,documented as a scribe. Any additional findings or plans will be noted.
--- NOTE | 2023-11-01 06:17 | P.PN ---
Subjective Progress Note Date: 10/31/23 HISTORY OF PRESENT ILLNESS: 88-year-old with active medical history of CVA with left-sided weakness walk with a walker, chronic history of COPD, chronic CHF, history of DVT, hypert ension, hyperlipidemia, osteoarthritis, worsening dementia, previous history of breast cancer postsurgery she was recently hospitalized and transferred to [facility] for rehab did not do well continue to be wheelchair-bound continue to require more than 1 person assistant health educator Long talk with the family about the need for assisted living and probably more placement with decline she has 2 children both decide on taking her home and hire extra help apparently did not work for too long less than a week after discharge from [facility] brought to the emergency department with complaint of severe tiredness fatigue not been able to care for herself not been able to get in bed move her to self to the chair has been having slight shortness of breath on and off with chronic lower back pain. Her workup in the emergency department did not show any major abnormality with her lab value close to its baseline. Urine test was negative at this point patient still currently being treated for UTI with oral Macrodantin. 10/31/2023: Patient continued to complain of significant lower back pain with her lumbar spine x-ray showed severe degenerative disc disease along with significant spinal stenosis refer patient to Ortho to see if there is any more management need to be done. Also patient testing confirms large size of abdominal aneurysm at 5.4 cm involving the iliac artery and both side will order again CTA to see the real size and refer patient again to vascular for consultation. REVIEW OF SYSTEMS: CONSTITUTIONAL: Elderly slightly confused in no acute respiratory distress. EYES: No icterus sclerae, no conjunctivitis. EARS, NOSE, MOUTH, THROAT, and FACE: No sore throat, lymphadenopathy, carotid bruits or deformity. RESPIRATORY: No SOB cough or wheezes. CARDIOVASCULAR: No CP, Palpitation, PND, Orthopnea, or angina. Positive arrhythmia. GASTROINTESTINAL: No Abd pain, Nausea or vomiting, no Diarrhea or constipation, No GI Bleed, no distention or masses. GENITOURINARY: Negative for Hematuria or UTI, no kidney stones. INTEGUMENT/BREAST: Negative for any muscular injury with mild osteoarthritis.. Significant back pain. HEMATOLOGIC/LYMPHATIC: Negative for bleed or purpura. MUSCULOSKELTAL: Negative for Myalgia or arthralgia. NEURLOGICAL: No LOC, Sz or syncope, blurred vision dizziness or abnormality.. BEHAVIORAL/PSYCH: Negative. ENDOCRINE: Negative. PHYSICAL EXAMINATION: General Appearance: Alert, cooperative, significantly confused no acute respiratory distress. Neck HEENT: Supple, no lymphadenopathy, no thyroid enlargement, no carotid bruits. Lungs: Clear to auscultation without crackles or wheezes no rhonchi, no deformity. Chest Wall: Chest wall normal expansion with deep inspiration no tenderness and no deformity was found on exam, no costochondral pain or discomfort. Heart: Irregular rate and rhythm, S1, S2 normal, no murmur, rub or gallop. Back: Significant discomfort lower back area with significant scoliosis and mild kyphosis with slight tenderness in the lumbar spine. Abdomen: Soft, non-tender, bowel sounds active all four quadrants, no masses, no organomegaly. Extremities: Extremities normal, atraumatic, no cyanosis or edema. Pulses: 2+ and symmetric. Skin: Skin color, texture, tugor normal, no rashes or lesions. Neurologic: Alert significantly confused, cranial nerves II through XII intact, slight generalized weakness in the right side compared to the left side with severe abnormal balance and gait. ASSESSMENT AND PLAN: _Debility: Secondary to overall general condition with chronic lower back pain, previous history of CVA, COPD, advanced dementia patient most likely require placement and further at assisted living or correction. _Lower back pain with severe degenerative disc disease and lumbar stenosis will ask for orthopedic referral. Mostly skeletal muscular continue Tylenol along with topical medication. I still do not believe patient require any intervention but further recommendation including whether needs steroid or not or even if parenteral pain management be an option. _UTI with recurrent UTI: Was placed on Macrodantin continue medication. UA continue to be negative at this point. _Large abdominal aneurysm at 5.4 cm referral for CTA for better measurement and to see vascular. To exclude any possibility for urgent need for intervention to correct current aneurysm. _History of CVA x 2 with residual left-sided weakness still require more help not safe to walk by herself able to ambulate with wheelchair mostly walker with one-person assistant health educator. Require more physical therapy. _History of COPD with no flareup lately remain on updraft treatment and O2. _A-fib with RVR: Pulse rates under control continue Eliquis. _CHF mostly systolic dysfunction with ejection fraction around 45 percentile, still medication resume home meds. _Advanced dementia: She is remain on donepezil 5 mg at bedtime and still on Seroquel 25 mg take up to 1 and half tablet at bedtime. _Hypertension: Continue amlodipine 10 mg daily with isosorbide mononitrate as needed smaller dose of ARB would be beneficial. _GI prophylaxis: Remain on Pepcid. CODE STATUS: Full code. Objective - Vital Signs Vital signs: Vital Signs Temp 97.6 F 10/31/23 02:00 Pulse 74 10/31/23 02:00 Resp 18 10/31/23 02:00 BP 162/70 10/31/23 02:00 Pulse Ox 96 10/31/23 02:00 FiO2 Intake & Output 10/30/23 10/30/23 10/31/23 06:59 18:59 06:59 Intake Total 450 120 Output Total 400 Balance 50 120 Weight 56.699 kg Intake: Oral 450 120 Output: Urine 400 Other: Voiding Method Incontinent Incontinent External Catheter # Voids 0 - Labs CBC & Chem 7: 10/31/23 06:37 10/31/23 07:53 Labs: Abnormal Lab Results - Last 24 Hours (Table) 10/30/23 10/30/23 Range/Units 06:25 06:25 RBC 3.52 L (4.10-5.20) X 10*6/uL Hgb 9.0 L (12.0-15.0) g/dL Hct 29.7 L (37.2-46.3) % MCH 25.6 L (27.0-32.0) pg MCHC 30.3 L (32.0-37.0) g/dL RDW 20.1 H (11.5-14.5) % MPV 9.2 L (9.5-12.2) FL Potassium 2.9 L (3.5-5.5) mmol/L BUN 8.7 L (9.0-27.0) mg/dL BUN/Creatinine Ratio 10.88 L (12.00-20.00) Ratio
--- NOTE | 2023-11-01 09:02 | CDI ---
Documentation Clarification Form Date: 11/01/2023 From: Adore Randall RN CCDS Phone: [phone] Admit Date: 10/29/2023 03:40:00 PM Patient Name: Kate Medrano Visit Number: [id number] Discharge Date: ATTENTION: The Clinical Documentation Specialists (CDI) and [facility] Coding Staff appreciate your assistance in clarifying documentation. Please respond to the clarification below the line at the bottom and electronically sign. The CDI & [facility] Coding staff will review the response and follow-up if needed. Please note: Queries are made part of the Legal Health Record. If you have any questions, please contact the author of this message via ITS. Doctor/Provider: Tacos Saha MD: Your patient has the documented symptom of weakness in the H&P 10/28. Additional clarification regarding the etiology/cause of this symptom is requested. History/Risk Factors: 88-year-old female with a history of Dementia, CVAx2, Left sided weakness, COPD, chronic HFrEF, HTN who was recently discharged from rehab facility and presents with generalized weakness and low back pain Clinical Indicators: 10/28 H&P, Assessment and Plan: "Lower back pain and unable to get out of bed and perform ADLs. Generalized weakness, History of CVA x 2 with residual left-sided weakness. Patient uses walker at baseline" 10/29 IM PN, Assessment and Plan: "Debility: Secondary to overall general condition with chronic lower back pain, patient most likely require placement and further at assisted living or shelter. Lower back pain: Mostly skeletal muscular. History of CVA x 2 with residual left-sided weakness still require more help not safe to walk by herself able to ambulate with wheelchair mostly walker with one-person home based assistant. Require more physical therapy." 10/30 Orthopedic Consult, Assessment and Plan: "Severe lumbar spondylosis with stenosis History of L5-S1 decompression and fusion. Chronic mechanical low back pain. Generalized weakness." 10/30 Vascular Surgery Consult, Assessment and Plan: "1.Asymptomatic abdominal aortic aneurysm unchanged 2. Right common iliac artery dilation, unchanged. 3. Generalized weakness and debility." 10/30 PT Consult: "Discharge Recommendations: Sub-acute Rehabilitation" 10/30 OT Consult: "Discharge Recommendations: Sub-acute Rehab" 10/29 CT Lumbar Spine, Impression: "1.No evidence of fracture. 2. Severe degeneration changes of the spine as described above with multilevel high-grade stenosis of the spinal canal and neural foramen. 5. Infrarenal abdominal aorta aneurysm." Treatment: PT/OT consults Consult Orthopedics and Vascular Surgery Is there a corresponding diagnosis/etiology for this symptom of weakness? [XX ] Age related physical debility [XX ] Age related cognitive decline [ ] Unable to determine [ ] Other, please specify MTDD
--- NOTE | 2023-11-02 13:05 | P.PN ---
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 Her workup in the emergency department did not show any major abnormality with her lab value close to its baseline. Urine test was negative at this point patient still currently being treated for UTI with oral Macrodantin. 10/31/2023: Patient continued to complain of significant lower back pain with her lumbar spine x-ray showed severe degenerative disc disease along with significant spinal stenosis refer patient to Ortho to see if there is any more management need to be done. Also patient testing confirms large size of abdominal aneurysm at 5.4 cm involving the iliac artery and both side will order again CTA to see the real size and refer patient again to vascular for consultation. 11/01/2023: Patient ended up doing CT of the aorta: Again consistent with the same size of aneurysm was seen vascular and believe she need more surveillance of aneurysm follow-up every 6 to 12 months to be seen as an outpatient. Also for her back pain was seen Ortho With the current finding of severe lumbar spondylolisthesis with stenosis with L5/S1 decompression and fusion that felt no need for any intervention required at this point continue to do medical management control the pain and to follow-up with Ortho as an outpatient. In the matter of her confusion and debility there is no change currently social services specialist had been working with family to see any further plan might need help with. Previously again the patient was in [facility] for few weeks and could not anticipate and participate in any physical therapy that the patient to be safe living independent recommendation for family was to look into assisted living or longer-term plan and was declined at the time and ended up being home by herself upon her discharge from [facility] was supposed to be withheld at all time she is not safe to be by herself. REVIEW OF SYSTEMS: CONSTITUTIONAL: Elderly slightly confused in no acute respiratory distress. EYES: No icterus sclerae, no conjunctivitis. EARS, NOSE, MOUTH, THROAT, and FACE: No sore throat, lymphadenopathy, carotid bruits or deformity. RESPIRATORY: No SOB cough or wheezes. CARDIOVASCULAR: No CP, Palpitation, PND, Orthopnea, or angina. Positive arrhy thmia. GASTROINTESTINAL: No Abd pain, Nausea or vomiting, no Diarrhea or constipation, No GI Bleed, no distention or masses. GENITOURINARY: Negative for Hematuria or UTI, no kidney stones. INTEGUMENT/BREAST: Negative for any muscular injury with mild osteoarthritis.. Significant back pain. HEMATOLOGIC/LYMPHATIC: Negative for bleed or purpura. MUSCULOSKELTAL: Negative for Myalgia or arthralgia. NEURLOGICAL: No LOC, Sz or syncope, blurred vision dizziness or abnormality.. BEHAVIORAL/PSYCH: Negative. ENDOCRINE: Negative. PHYSICAL EXAMINATION: General Appearance: Alert, cooperative, significantly confused no acute respiratory distress. Neck HEENT: Supple, no lymphadenopathy, no thyroid enlargement, no carotid bruits. Lungs: Clear to auscultation without crackles or wheezes no rhonchi, no deformity. Chest Wall: Chest wall normal expansion with deep inspiration no tenderness and no deformity was found on exam, no costochondral pain or discomfort. Heart: Irregular rate and rhythm, S1, S2 normal, no murmur, rub or gallop. Back: Significant discomfort lower back area with significant scoliosis and mild kyphosis with slight tenderness in the lumbar spine. Abdomen: Soft, non-tender, bowel sounds active all four quadrants, no masses, no organomegaly. Extremities: Extremities normal, atraumatic, no cyanosis or edema. Pulses: 2+ and symmetric. Skin: Skin color, texture, tugor normal, no rashes or lesions. Neurologic: Alert significantly confused, cranial nerves II through XII intact, slight generalized weakness in the right side compared to the left side with severe abnormal balance and gait. ASSESSMENT AND PLAN: _Debility: Secondary to overall general condition with chronic lower back pain, previous history of CVA, COPD, advanced dementia patient most likely require placement and further at assisted living or [facility]. Still social services specialist are working with the family for the goal. _Lower back pain with severe degenerative disc disease and lumbar stenosis will ask for orthopedic referral. Mostly skeletal muscular continue Tylenol along with topical medication. I still do not believe patient require any interventio n but further recommendation including whether needs steroid or not or even if parenteral pain management be an option. _UTI with recurrent UTI: Was placed on Macrodantin continue medication. UA con tinue to be negative at this point. _Large abdominal aneurysm at 5.4 cm referral for CTA for better measurement and to see vascular. To exclude any possibility for urgent need for intervention to correct current aneurysm. 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 Require more physical therapy. _History of COPD with no flareup lately remain on updraft treatment and O2. _A-fib with RVR: Pulse rates under control continue Eliquis. Pulse rate remained well-controlled _CHF mostly systolic dysfunction with ejection fraction around 45 percentile, still medication resume home meds. _Advanced dementia: She is remain on donepezil 5 mg at bedtime and still on Seroquel 25 mg take up to 1 and half tablet at bedtime. _Hypertension: Continue amlodipine 10 mg daily with isosorbide mononitrate as needed smaller dose of ARB would be beneficial. Discharge planning: Waiting for family to make a final conclusion and decision with social services specialist. Objective - Vital Signs Vital signs: Vital Signs Temp 97.8 F 10/31/23 19:57 Pulse 67 11/01/23 02:33 Resp 16 11/01/23 02:33 BP 148/64 11/01/23 02:33 Pulse Ox 95 11/01/23 02:33 FiO2 Intake & Output 10/31/23 10/31/23 11/01/23 06:59 18:59 06:59 Intake Total 120 Output Total 600 Balance 120 -600 Intake: Oral 120 Output: Urine 600 Other: Voiding Method Incontinent Incontinent Incontinent External Catheter External Catheter External Catheter # Voids 0 3 - Labs CBC & Chem 7: 10/31/23 06:37 10/31/23 07:53 Labs: Abnormal Lab Results - Last 24 Hours (Table) 10/31/23 10/31/23 10/31/23 Range/Units 05:45 06:37 07:53 RBC 3.41 L (3.80-5.40) m/uL Hgb 9.2 L (11.4-16.0) gm/dL Hct 29.3 L (34.0-46.0) % RDW 19.3 H (11.5-15.5) % Monocytes # (Manual) 1.04 H (0-1.0) k/uL Carbon Dioxide 35 H 35 H (22-30) mmol/L Total Protein 5.2 L (6.3-8.2) g/dL Albumin 2.9 L (3.5-5.0) g/dL
--- NOTE | 2023-11-02 13:13 | P.DS ---
Providers Date of admission: 10/29/23 15:40 Attending physician: Tacos Saha Consults: 10/31/23 06:24 Consult Physician Routine Consulting Provider: Thomas Morse Consult Reason/Comments: Back pain and DJD with spinal stenosis Do you want consulting provider notified?: Yes 10/31/23 06:25 Consult Physician Routine Consulting Provider: Anjana Jay Consult Reason/Comments: AAA Do you want consulting provider notified?: Yes [facility]: HISTORY OF PRESENT ILLNESS: 88-year-old with active medical history of CVA with left-sided weakness walk with a walker, chronic history of COPD, chronic CHF, history of DVT, hypertension, hyperlipidemia, osteoarthritis, worsening dementia, previous history of breast cancer postsurgery she was recently hospitalized and transferred to [facility] for rehab did not do well continue to be wheelchair-bound 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 brought to the emergency department with complaint of severe tiredness fatigue not been able to care for herself not been able to get in bed move her to self to the chair has been having slight shortness of breath on and off with chronic lower back pain. Her workup in the emergency department did not show any major abnormality with her lab value close to its baseline. Urine test was negative at this point patient still currently being treated for UTI with oral Macrodantin. 10/31/2023: Patient continued to complain of significant lower back pain with her lumbar spine x-ray showed severe degenerative disc disease along with significant spinal stenosis refer patient to Ortho to see if there is any more management need to be done. Also patient testing confirms large size of abdominal aneurysm at 5.4 cm involving the iliac artery and both side will order again CTA to see the real size and refer patient again to vascular for consultation. 11/01/2023: Patient ended up doing CT of the aorta: Again consistent with the same size of aneurysm was seen vascular and believe she need more surveillance of aneurysm follow-up every 6 to 12 months to be seen as an outpatient. Also for her back pain was seen Ortho With the current finding of severe lumbar spondylolisthesis with stenosis with L5/S1 decompression and fusion that felt no need for any intervention required at this point continue to do medical management control the pain and to follow-up with Ortho as an outpatient. In the matter of her confusion and debility there is no change currently child welfare social worker had been working with family to see any further plan might need help with. Previously again the patient was in [facility] for few weeks and could not anticipate and participate in any physical therapy that the patient to be safe living independent recommendation for family was to look into assisted living or longer-term plan and was declined at the time and ended up being home by herself upon her discharge from [facility] was supposed to be withheld at all time she is not safe to be by herself. 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 Family apparently making an amendment to make some change she will be going to retirement for possible long-term and might benefit from short-term physical therapy as time goes by to see if she can benefit from any change. Her UTI is treated and done well just finished antibiotic recently and UA continue to be negative. The patient was assessed and evaluated by vascular and by Ortho back specialist no intervention required for either 1 of those condition for the time being her abdominal aneurysm at 5.4 cm require surveillance testing every 6 months also her back had severe spondylolithiasis and stenosis with mild compression and fusion of the L5-S1 can benefit from medication to help her pain but no intervention required no epidural at this point. REVIEW OF SYSTEMS: CONSTITUTIONAL: Elderly slightly confused in no acute respiratory distress. EYES: No icterus sclerae, no conjunctivitis. EARS, NOSE, MOUTH, THROAT, and FACE: No sore throat, lymphadenopathy, carotid bruits or deformity. RESPIRATORY: No SOB cough or wheezes. CARDIOVASCULAR: No CP, Palpitation, PND, Orthopnea, or angina. Positive arrhythmia. GASTROINTESTINAL: No Abd pain, Nausea or vomiting, no Diarrhea or constipation, No GI Bleed, no distention or masses. GENITOURINARY: Negative for Hematuria or UTI, no kidney stones. INTEGUMENT/BREAST: Negative for any muscular injury with mild osteoarthritis.. Significant back pain. HEMATOLOGIC/LYMPHATIC: Negative for bleed or purpura. MUSCULOSKELTAL: Negative for Myalgia or arthralgia. NEURLOGICAL: No LOC, Sz or syncope, blurred vision dizziness or abnormality.. BEHAVIORAL/PSYCH: Negative. ENDOCRINE: Negative. PHYSICAL EXAMINATION: General Appearance: Alert, cooperative, significantly confused no acute respiratory distress. Neck HEENT: Supple, no lymphadenopathy, no thyroid enlargement, no carotid bruits. Lungs: Clear to auscultation without crackles or wheezes no rhonchi, no deformity. Chest Wall: Chest wall normal expansion with deep inspiration no tenderness and no deformity was found on exam, no costochondral pain or discomfort. Heart: Irregular rate and rhythm, S1, S2 normal, no murmur, rub or gallop. Back: Significant discomfort lower back area with significant scoliosis and mild kyphosis with slight tenderness in the lumbar spine. Abdomen: Soft, non-tender, bowel sounds active all four quadrants, no masses, no organomegaly. Extremities: Extremities normal, atraumatic, no cyanosis or edema. Pulses: 2+ and symmetric. Skin: Skin color, texture, tugor normal, no rashes or lesions. Neurologic: Alert significantly confused, cranial nerves II through XII intact, slight generalized weakness in the right side compared to the left side with severe abnormal balance and gait. ASSESSMENT AND PLAN: _Debility: Secondary to overall general condition with chronic lower back pain, previous history of CVA, COPD, advanced dementia patient, and having fusion and compression in the lumbar spine is not helping along with the spinal stenosis which patient will continue currently on medical management 4. Most likely require placement and further at assisted living or retirement. Still child welfare social worker are working with the family for the goal. _Lower back pain with severe degenerative disc disease and lumbar stenosis will ask for orthopedic referral. Mostly skeletal muscular continue Tylenol along with topical medication. I still do not believe patient require any intervention but further recommendation including whether needs steroid or not or even if needed can go for pain management be an option. Specially epidural injection. _UTI with recurrent UTI: Was placed on Macrodantin continue medication. UA continue to be negative at this point. _Large abdominal aneurysm at 5.4 cm referral for CTA for better measurement and to see vascular. To exclude any possibility for urgent need for intervention to correct current aneurysm. 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 Require more physical therapy. _History of COPD with no flareup lately remain on updraft treatment and O2. _A-fib with RVR: Pulse rates under control continue Eliquis. Pulse rate remained well-controlled _CHF mostly systolic dysfunction with ejection fraction around 45 percentile, still medication resume home meds. _Advanced dementia: She is remain on donepezil 5 mg at bedtime and still on Seroquel 25 mg take up to 1 and half tablet at bedtime. _Hypertension: Continue amlodipine 10 mg daily with isosorbide mononitrate as needed smaller dose of ARB would be beneficial. Discharge planning: Family apparently had made arrangement with child welfare social worker to help patient move back to retirement for most likely long-term. 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 Also found to have worsening confusion and the numerous complaints she had which is significant lower back pain worsening than before. Was seen and evaluated found on x-ray of the lumbar spine finding might be consistent with severe degenerative arthritis and spinal stenosis also with testing? Of abdominal aneurysm of 5.4 cm. CTA of the abdomen and aorta was performed and showed her aneurysm to be at 5.4 cm with no dissection vascular were consulted and seen patient decided no intervention required at this point patient will require surveillance testing every 6 months. Also with her CAT scan of the back showing significant spondylolithiasis with stenosis in L5/S1 compression and fusion did not require any surgical int ervention was seen Ortho and agree to continue pain management might benefit from physical therapy which patient had failed to do that well with physical therapy in the past. Will continue current management with advanced physical therapy gradually as well. 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 Patient will be discharged today to long-term care hopefully. Time spent on patient discharge was over 32 minutes. Patient Condition at Discharge: Fair Plan - Discharge Summary Discharge Rx Participant: No New Discharge Prescriptions: Continue Pantoprazole [Protonix] 40 mg PO DAILY DULoxetine HCL [Cymbalta] 30 mg PO DAILY Albuterol Inhaler [Ventolin Hfa Inhaler] 2 puff INHALATION RT-Q6H PRN PRN Reason: Shortness Of Breath Clopidogrel [Plavix] 75 mg PO DAILY 30 Days #30 tab Melatonin 5 mg PO HS Nitrofurantoin Monohyd/M-Cryst [Macrobid] 100 mg PO Q12HR Acetaminophen-Codeine 300-30mg [Tylenol w/codeine #3] 1 tab PO Q6H PRN 3 Days #12 tablet PRN Reason: Pain Isosorbide Mononitrate ER [Imdur] 30 mg PO DAILY Furosemide [Lasix] 20 mg PO DAILY Apixaban [Eliquis] 2.5 mg PO BID Cholecalciferol [Vitamin D3 (25 Mcg = 1000 Iu)] 25 mcg PO DAILY Ascorbic Acid [Vitamin C] 500 mg PO DAILY Atorvastatin [Lipitor] 10 mg PO DAILY Ferrous Sulfate [Iron (65 MG Elemental)] 325 mg PO DAILY QUEtiapine [SEROquel] 25 mg PO HS amLODIPine [Norvasc] 10 mg PO DAILY Donepezil [Aricept] 10 mg PO HS Acetaminophen Tab [Tylenol] 325 mg PO Q6H PRN PRN Reason: Pain Or Fever > 100.5 Discharge Medication List Pantoprazole [Protonix] 40 mg PO DAILY 04/11/18 [History] Albuterol Inhaler [Ventolin Hfa Inhaler] 2 puff INHALATION RT-Q6H PRN 04/29/22 [History] Apixaban [Eliquis] 2.5 mg PO BID 04/29/22 [History] DULoxetine HCL [Cymbalta] 30 mg PO DAILY 04/29/22 [History] Furosemide [Lasix] 20 mg PO DAILY 04/29/22 [History] Isosorbide Mononitrate ER [Imdur] 30 mg PO DAILY 04/29/22 [History] Cholecalciferol [Vitamin D3 (25 Mcg = 1000 Iu)] 25 mcg PO DAILY 09/30/22 [History] Ascorbic Acid [Vitamin C] 500 mg PO DAILY 10/27/22 [History] Clopidogrel [Plavix] 75 mg PO DAILY 30 Days #30 tab 12/28/22 [Rx] Atorvastatin [Lipitor] 10 mg PO DAILY 03/04/23 [History] Ferrous Sulfate [Iron (65 MG Elemental)] 325 mg PO DAILY 03/04/23 [History] QUEtiapine [SEROquel] 25 mg PO HS 08/01/23 [History] amLODIPine [Norvasc] 10 mg PO DAILY 09/05/23 [History] Acetaminophen Tab [Tylenol] 325 mg PO Q6H PRN 10/29/23 [History] Donepezil [Aricept] 10 mg PO HS 10/29/23 [History] Melatonin 5 mg PO HS 10/29/23 [History] Nitrofurantoin Monohyd/M-Cryst [Macrobid] 100 mg PO Q12HR 10/29/23 [History] Acetaminophen-Codeine 300-30mg [Tylenol w/codeine #3] 1 tab PO Q6H PRN 3 Days #12 tablet 11/02/23 [Rx] Follow up Appointment(s)/Referral(s): Scout Johnson DO [Doctor of Osteopathic Medicine] - 2 Weeks Tacos Saha MD [Primary Care Provider] - 1-2 days Discharge Disposition: TRANSFER TO SNF/ECF
[2023-11-02 14:24] VITALS: BP 108/75; PULSE 79; RESP 17; TEMP 97.9
== END 2023-11-02 17:12 | DRG 884 ==
LOC: EC 12:33 → 5NMEDONC 15:40 → 1SOBS 10-30 10:17 → 4SSUR 11-01 16:43
PROVIDERS: ADMIT Internal Medicine Geriatric Medicine; ATTEND Internal Medicine Geriatric Medicine
DX: R41.81 Age-related cognitive decline (principal); I69.354 Hemiplegia and hemiparesis following cerebral infarction affecting left non-dominant side; N39.0 Urinary tract infection, site not specified; I50.22 Chronic systolic (congestive) heart failure; I11.0 Hypertensive heart disease with heart failure; E78.5 Hyperlipidemia, unspecified; M19.90 Unspecified osteoarthritis, unspecified site; M51.36 Other intervertebral disc degeneration, lumbar region; M48.061 Spinal stenosis, lumbar region without neurogenic claudication; M47.816 Spondylosis without myelopathy or radiculopathy, lumbar region; M43.16 Spondylolisthesis, lumbar region; J43.9 Emphysema, unspecified; I71.43 Infrarenal abdominal aortic aneurysm, without rupture; I72.3 Aneurysm of iliac artery; I48.91 Unspecified atrial fibrillation; I44.0 Atrioventricular block, first degree; G89.29 Other chronic pain; Z87.891 Personal history of nicotine dependence; Z87.440 Personal history of urinary (tract) infections; Z86.718 Personal history of other venous thrombosis and embolism; Z85.3 Personal history of malignant neoplasm of breast; Z99.3 Dependence on wheelchair; Z79.899 Other long term (current) drug therapy; Z79.82 Long term (current) use of aspirin; Z79.02 Long term (current) use of antithrombotics/antiplatelets; Z79.01 Long term (current) use of anticoagulants
CPT/HCPCS: 36415; 71045; 71275; 72131; 74174; 80048; 80053; 81001; 83605; 83735; 85025; 93005; 96361; 96374; 99285

== ENCOUNTER 2023-12-08 13:23 | Inpatient (IN) | payer MEDICARE, BC ==
--- NOTE | 2023-12-08 13:54 | ED ---
Back Pain [facility] - General Chief Complaint: Back Pain/Injury Stated Complaint: back pain Time Seen by Provider: 12/08/23 13:37 Source: patient, family, RN notes reviewed Mode of arrival: EMS Limitations: no limitations - History of Present Illness Initial Comments: This is an 88-year-old female who presents to the emergency department for back pain. Patient has a history of chronic back pain, but states that it has been worsening over the last few days. Denies any new injuries. Denies any loss of bowel/bladder control or saddle anesthesia. Pain is in the left lower back with radiation into the buttocks and down the leg. States that this feels like her typical pain just worse. Currently taking [id number]-[id number] medication without much relief. She called EMS because she was having difficulty walking due to the pain. When her son arrived, he advised that she was having difficulty grabbing the walker with her left hand and it kept slipping down. She does have a history of stroke with weakness on that side, but patient states that yesterday she started to notice more difficulty using her left arm. MD Complaint: back pain - Related Data Home Medications Medication Instructions Recorded Confirmed Pantoprazole [Protonix] 40 mg PO DAILY 04/11/18 12/08/23 Albuterol Inhaler [Ventolin Hfa 2 puff INHALATION RT-Q6H PRN 04/29/22 12/08/23 Inhaler] Apixaban [Eliquis] 2.5 mg PO BID 04/29/22 12/08/23 DULoxetine HCL [Cymbalta] 30 mg PO DAILY 04/29/22 12/08/23 Furosemide [Lasix] 20 mg PO Q48H 04/29/22 12/08/23 Isosorbide Mononitrate ER [Imdur] 30 mg PO DAILY 04/29/22 12/08/23 Cholecalciferol [Vitamin D3 (25 25 mcg PO DAILY 09/30/22 12/08/23 Mcg = 1000 Iu)] Ascorbic Acid [Vitamin C] 500 mg PO DAILY 10/27/22 12/08/23 Atorvastatin [Lipitor] 10 mg PO DAILY 03/04/23 12/08/23 Ferrous Sulfate [Iron (65 MG 325 mg PO DAILY 03/04/23 12/08/23 Elemental)] QUEtiapine [SEROquel] 37.5 mg PO HS 08/01/23 12/08/23 amLODIPine [Norvasc] 10 mg PO DAILY 09/05/23 12/08/23 Acetaminophen Tab [Tylenol] 325 mg PO Q6H PRN 10/29/23 12/08/23 Donepezil [Aricept] 10 mg PO HS 10/29/23 12/08/23 Melatonin 5 mg PO HS 10/29/23 12/08/23 Previous Rx's Medication Instructions Recorded Clopidogrel [Plavix] 75 mg PO DAILY 30 Days #30 tab 12/28/22 Acetaminophen-Codeine 300-30mg 1 tab PO Q6H PRN 3 Days #12 tablet 11/02/23 [Tylenol w/codeine #3] Allergies Allergy/AdvReac Type Severity Reaction Status Date / Time No Known Allergies Allergy Verified 12/08/23 20:15 Review of Systems ROS Statement: Those systems with pertinent positive or pertinent negative responses have been documented in the HPI. ROS Other: All systems not noted in ROS Statement are negative. 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 Past Psychological History: Anxiety Smoking Status: Former smoker Past Alcohol Use History: None Reported Past Drug Use History: None Reported - Past Family History Brother(s) Family Medical History: Cancer Sister(s) Family Medical History: Cancer Mother Additional Family Medical History / Comment(s): enlarged heart General Exam Limitations: no limitations General appearance: alert, in no apparent distress Head exam: Present: atraumatic, normocephalic, normal inspection Respiratory exam: Present: decreased breath sounds, prolonged expiratory. Absent: wheezes, rales, rhonchi, stridor Cardiovascular Exam: Present: regular rate, normal rhythm, normal heart sounds. Absent: systolic murmur, diastolic murmur, rubs, gallop, clicks Neurological exam: Present: alert, oriented X3, CN II-XII intact Psychiatric exam: Present: normal affect, normal mood Skin exam: Present: warm, dry, intact, normal color. Absent: rash Course Vital Signs 12/08/23 12/08/23 12/08/23 13:27 13:36 14:27 Temperature 97.9 F 98.0 F Pulse Rate 48 L 66 Pulse Rate [ Pulse Oximetery ] Respiratory 20 20 Rate Blood Pressure 105/58 101/50 Blood Pressure [Left Arm] O2 Sat by Pulse 90 L 95 100 Oximetry 12/08/23 12/08/23 12/08/23 16:30 19:52 20:00 Temperature 97.5 F L Pulse Rate 58 L Pulse Rate [ 60 60 Pulse Oximetery ] Respiratory 17 16 18 Rate Blood Pressure 105/48 Blood Pressure 97/45 [Left Arm] O2 Sat by Pulse 98 94 L Oximetry 12/08/23 20:14 Temperature Pulse Rate 47 L Pulse Rate [ Pulse Oximetery ] Respiratory 18 Rate Blood Pressure 111/62 Blood Pressure [Left Arm] O2 Sat by Pulse 98 Oximetry Medical Decision Making - Medical Decision Making This is an 88 year old female who presents to the emergency department for back pain. Was pt. sent in by a medical professional or institution? @ -No Did you speak to anyone other than the patient for history? @ -Her son provided the concerns about her being unable to use the left arm to push up with her walker. Did you review nursing and triage notes? @ -Yes, and I agree, it is accurate with regards to the patient's symptoms. Were old charts reviewed? @ -No Differential Diagnosis? @ -Differential Back Pain: Strain, zoster, cauda equina syndrome, epidural abscess, vertebral osteomy elitis, discitis, fracture, subluxation, disc herniation, DJD, spinal stenosis, dissection, AAA, pancreatitis, peptic ulcer disease, pyelonephritis, kidney stone, this is not meant to be an all-inclusive list. EKG interpreted by me (3pts min.)? @ -Not obtained X-rays interpreted by me (1pt min.)? @ -Not obtained CT interpreted by me (1pt min.)? @ -CT scan of the brain obtained. My interpretation identifies no evidence of an acute intracranial hemorrhage U/S interpreted by me (1pt. min.)? @ -Not obtained What testing was considered but not performed? (CT, X-rays, U/S, labs)? Why? @ -None What meds were considered but not given? Why? @ -None Did you discuss the management of the patient with other professionals? @ -No Did you reconcile home meds? @ -No Was smoking cessation discussed for >3mins.? @ -No Was critical care preformed (if so, how long)? @ -No Were there social determinants of health that impacted care today? How? (Homelessness, low income, unemployed, alcoholism, drug addiction, transportation, low edu. Level, literacy, decrease access to med. care, long term, rehab)? @ -No Was there de-escalation of care discussed even if they declined? (Discuss DNR or withdrawal of care, Hospice)? @ -No What co-morbidities impacted this encounter? (DM, HTN, Smoking, COPD, CAD, Cancer, CVA, Hep., AIDS, mental health diagnosis, sleep apnea, morbid obesity)? @ -Osteoarthritis, chronic back pain Was patient admitted / discharged? @ -Admitted. Urinalysis negative for signs of infection. Patient reports an acute exacerbation of her chronic pain. She had no red flag signs or symptoms such as loss of bowel/bladder control or saddle anesthesia. Her pain was controlled in the emergency department and nursing staff got the patient up to ambulate. It was noticed that she had some difficulty grabbing the walker with her left hand or after ambulating a few steps her left hand would start to slide off of the walker. Patient states that she started to notice this problem yesterday. We proceeded with more of a workup including lab work and imaging of the brain. Lab work was unremarkable. CT scan of the brain demonstrated the old infarcts without any acute process. We got the patient up to ambulate again and she did well initially, however her son states that her arm stated to shake again and he was concerned about her going home and falling. Patient evaluated at bedside with ED attending, Dr. Davis, given family concerns. ED attending spoke with patient's PCP. Will plan to admit patient with neurology on consult. Undiagnosed new problem with uncertain prognosis? @ -None Drug Therapy requiring intensive monitoring for toxicity (Heparin, Nitro, Insulin, Cardizem)? @ -None Were any procedures done? @ -None Diagnosis/symptom? @ -Chronic back pain Acute, or Chronic, or Acute on Chronic? @ -Acute on chronic Uncomplicated (without systemic symptoms) or Complicated (systemic symptoms)? @ -Uncomplicated Side effects of treatment? @ -None Exacerbation, Progression, or Severe Exacerbation] @ -Exacerbation Poses a threat to life or bodily function? @ -The pain is limiting her ability to get around. - Lab Data Result diagrams: 12/08/23 15:58 12/08/23 15:58 Lab Results 12/08/23 12/08/23 12/08/23 Range/Units 13:47 15:58 15:58 WBC 7.3 (3.8-10.6) k/uL RBC 3.46 L (3.80-5.40) m/uL Hgb 9.1 L (11.4-16.0) gm/dL Hct 30.4 L (34.0-46.0) % MCV 87.9 (80.0-100.0) fL MCH 26.3 (25.0-35.0) pg MCHC 29.9 L (31.0-37.0) g/dL RDW 19.9 H (11.5-15.5) % Plt Count 293 (150-450) k/uL MPV 7.1 Neutrophils % 79 % Lymphocytes % 12 % Monocytes % 5 % Eosinophils % 2 % Basophils % 0 % Neutrophils # 5.8 (1.3-7.7) k/uL Lymphocytes # 0.9 L (1.0-4.8) k/uL Monocytes # 0.3 (0-1.0) k/uL Eosinophils # 0.1 (0-0.7) k/uL Basophils # 0.0 (0-0.2) k/uL Hypochromasia Marked Anisocytosis Slight Sodium 138 (137-145) mmol/L Potassium 4.6 (3.5-5.1) mmol/L Chloride 108 H (98-107) mmol/L Carbon Dioxide 23 (22-30) mmol/L Anion Gap 7 mmol/L BUN 23 H (7-17) mg/dL Creatinine 0.79 (0.52-1.04) mg/dL Est GFR (CKD-EPI)AfAm 78 (>60 ml/min/1.73 sqM) Est GFR (CKD-EPI)NonAf 68 (>60 ml/min/1.73 sqM) Glucose 90 (74-99) mg/dL Calcium 9.2 (8.4-10.2) mg/dL Magnesium 2.0 (1.6-2.3) mg/dL Total Bilirubin 0.7 (0.2-1.3) mg/dL AST 29 (14-36) U/L ALT 10 (4-34) U/L Alkaline Phosphatase 64 (38-126) U/L Total Protein 6.2 L (6.3-8.2) g/dL Albumin 3.7 (3.5-5.0) g/dL Urine Color Yellow Urine Appearance Clear (Clear) Urine pH 5.5 (5.0-8.0) Ur Specific [place] 1.016 (1.001-1.035) Urine Protein Trace H (Negative) Urine Glucose (UA) Negative (Negative) Urine Ketones Negative (Negative) Urine Blood Negative (Negative) Urine Nitrite Negative (Negative) Urine Bilirubin Negative (Negative) Urine Urobilinogen <2.0 (<2.0) mg/dL Ur Leukocyte Esterase Negative (Negative) - Radiology Data Radiology results: report reviewed, image reviewed Disposition Clinical Impression: Chronic back pain, Left hand weakness, Debility Disposition: ADMITTED IP TO THIS [facility] Time of Disposition: 17:18
[2023-12-08 14:03] LABS: Appearance,Urine Clear (Clear); Bilirubin,Urine Negative (Negative); Blood,Urine Negative (Negative); Color,Urine Yellow; Glucose,Urine (UA) Negative (Negative); Ketones,Urine Negative (Negative); Leukocyte Esterase,Urine Negative (Negative); Nitrite,Urine Negative (Negative); PH, Urine 5.5 (5.0-8.0); Protein,Urine Trace (Negative); Specific Gravity,Urine 1.016 (1.001-1.035); Urobilinogen,Urine <2.0 mg/dL (<2.0)
[2023-12-08] MEDS: KETOROLAC 15 MG/ML 1 ML VIAL IVP STA (14:10)
[2023-12-08] MEDS: MORPHINE SULFATE 2 MG/ML SYRINGE IVP STA (14:11)
[2023-12-08] MEDS: LIDOCAINE 4% PATCH TOPICAL ONE (14:12)
[2023-12-08] MEDS: ORPHENADRINE 30 MG/ML 2 ML VIAL IVP STA (14:13)
[2023-12-08] MEDS: DEXAMETHASONE SOD PHOSPHATE 10 MG/ML 1 ML VIAL IVP STA (14:13)
[2023-12-08 16:27] LABS: Anisocytosis Slight; Basophils % (A) 0 %; Eosinophils # (A) 0.1 k/uL (0-0.7); Eosinophils % (A) 2 %; HCT 30.4 % (34.0-46.0); HGB 9.1 gm/dL (11.4-16.0); Hypochromasia Marked; Lymphocytes # (A) 0.9 k/uL (1.0-4.8); Lymphocytes % (A) 12 %; MCH 26.3 pg (25.0-35.0); MCHC 29.9 g/dL (31.0-37.0); MCV 87.9 fL (80.0-100.0); Mean Platelet Volume 7.1; Monocytes # (A) 0.3 k/uL (0-1.0); Monocytes % (A) 5 %; Neutrophils # (A) 5.8 k/uL (1.3-7.7); Neutrophils % (A) 79 %; Platelet Count 293 k/uL (150-450); RBC 3.46 m/uL (3.80-5.40); RDW 19.9 % (11.5-15.5); WBC 7.3 k/uL (3.8-10.6)
--- NOTE | 2023-12-08 16:34 | CT ---
EXAMINATION TYPE: CT brain wo con DATE OF EXAM: 12/08/2023 COMPARISON: 07/05/2023 INDICATION: WEAKNESS DLP: 1072.1 mGycm, Automated exposure control for dose reduction was used. CONTRAST: None CT of the brain is performed utilizing 3 mm thick sections through the posterior fossa and 3 mm thick sections through the remaining calvarium. Study is performed within 24 hours of arrival to the hosp ital. No abnormal hyperdensity is present to suggest an acute intracranial hemorrhage. No mass lesion is evident. No acute infarcts are evident. Old lacunar infarcts in the left cerebellum, present previously. There is an old right thalamic lacunar infarct, unchanged. Old right frontal parietal infarct, stable. The re is stable periventricular white matter hypodensity, likely on the basis of chronic white matter is chemic changes. Ventricles and sulci are round for the patient age. Paranasal sinuses and mastoid air cells within the [id number] are clear. IMPRESSION: 1. No acute intracranial process. Follow up MRI can be performed as clinically indicated. 2. Old lacunar infarcts in prior infarct discussed above. 3. Chronic appearing periventricular white matter ischemic type changes. [facility], Workstation: [facility], 12/08/2023 4:32 PM
[2023-12-08 16:49] LABS: ALT 10 U/L (4-34); African American GFR (CKD) 78 (>60 ml/min/1.73 sqM); Albumin 3.7 g/dL (3.5-5.0); Anion Gap 7 mmol/L; Blood Urea Nitrogen 23 mg/dL (7-17); Calcium 9.2 mg/dL (8.4-10.2); Carbon Dioxide 23 mmol/L (22-30); Chloride 108 mmol/L (98-107); Glucose 90 mg/dL (74-99); Non-African American GFR(CKD) 68 (>60 ml/min/1.73 sqM); Sodium 138 mmol/L (137-145); Total Bilirubin 0.7 mg/dL (0.2-1.3); Total Protein 6.2 g/dL (6.3-8.2)
[2023-12-08 17:01] LABS: AST 29 U/L (14-36); Alkaline Phosphatase 64 U/L (38-126); Potassium 4.6 mmol/L (3.5-5.1)
[2023-12-08] MEDS ORDERED: MAG HYDROX/AL HYDROX/SIMETH 30 ML CUP PO PRN (18:42)
[2023-12-08] MEDS ORDERED: NALOXONE 0.4 MG/ML 1 ML VIAL IV PRN (18:42)
[2023-12-08] MEDS ORDERED: ACETAMINOPHEN TAB 325 MG TAB PO PRN (18:45)
[2023-12-08] MEDS: ACET/COD 300 MG/30 MG STARTER PACK 6 TAB BTL PO STA (19:07)
[2023-12-08] MEDS: APIXABAN 2.5 MG TABLET PO SCH (20:09)
[2023-12-08] MEDS: FAMOTIDINE 20 MG TAB PO SCH (20:10)
[2023-12-08] MEDS: QUEtiapine 25 MG TAB PO SCH (20:10)
[2023-12-08] MEDS: MELATONIN 5 MG TABLET PO SCH (20:10)
[2023-12-08] MEDS: SODIUM CHLORIDE 0.9% 1,000 ML IV SCH (20:19)
[2023-12-08] MEDS: ONDANSETRON 4 MG/2 ML VIAL IVP STA (20:20)
[2023-12-08] MEDS ORDERED: QUEtiapine 25 MG TAB PO SCH (21:00)
[2023-12-09 07:26] LABS: Anisocytosis Slight; HCT 30.2 % (34.0-46.0); HGB 8.8 gm/dL (11.4-16.0); Hypochromasia Marked; MCH 25.9 pg (25.0-35.0); MCV 89.3 fL (80.0-100.0); Mean Platelet Volume 6.6; Platelet Count 313 k/uL (150-450); RBC 3.38 m/uL (3.80-5.40); RDW 19.6 % (11.5-15.5); WBC 4.3 k/uL (3.8-10.6)
[2023-12-09 07:43] LABS: ALT 9 U/L (4-34); AST 20 U/L (14-36); African American GFR (CKD) 68 (>60 ml/min/1.73 sqM); Albumin 3.1 g/dL (3.5-5.0); Alkaline Phosphatase 58 U/L (38-126); Anion Gap 4 mmol/L; Blood Urea Nitrogen 30 mg/dL (7-17); Calcium 9.3 mg/dL (8.4-10.2); Carbon Dioxide 30 mmol/L (22-30); Chloride 105 mmol/L (98-107); Glucose 122 mg/dL (74-99); Non-African American GFR(CKD) 59 (>60 ml/min/1.73 sqM); Potassium 5.1 mmol/L (3.5-5.1); Sodium 139 mmol/L (137-145); Total Bilirubin 0.3 mg/dL (0.2-1.3); Total Protein 5.7 g/dL (6.3-8.2)
[2023-12-09] MEDS ORDERED: FUROSEMIDE 20 MG TAB PO SCH (09:00)
[2023-12-09] MEDS: ATORVASTATIN 10 MG TAB PO SCH (09:01)
[2023-12-09] MEDS: ASCORBIC ACID 500 MG TAB PO SCH (09:01)
[2023-12-09] MEDS: CLOPIDOGREL 75 MG TAB PO SCH (09:01)
[2023-12-09] MEDS: ISOSORBIDE MONONITRATE ER 30 MG TAB.ER.24H PO SCH (09:02)
[2023-12-09] MEDS: amLODIPine 10 MG TAB PO SCH (09:02)
[2023-12-09] MEDS: CHOLECALCIFEROL 25 MCG (1000 IU) TABLET PO SCH (09:02)
[2023-12-09] MEDS: DULoxetine HCL 30 MG CAPSULE.DR PO SCH (09:02)
[2023-12-09] MEDS: PANTOPRAZOLE 40 MG TABLET PO SCH (09:02)
[2023-12-09] MEDS: FERROUS SULFATE 325 MG TAB PO SCH (09:02)
[2023-12-09] MEDS: Acetaminophen-Codeine 300-30mg TAB PO PRN (09:08)
--- NOTE | 2023-12-09 10:26 | P.HPIM ---
History of Present Illness H&P Date: 12/08/23 HISTORY OF PRESENT ILLNESS: 88-year-old with active medical history of CVA with left-sided weakness, with mild spinal stenosis, history of cognitive impairment and memory loss, hyperglycemia, mild systolic congestive heart failure, recurrent UTI who was in and out subacute rehab at [facility] few times in the last few weeks last time was 4 debility secondary to lower back pain along with stroke and COPD could not ambulate and walk and that being the hospital for few days and sent to [facility] were spent almost 3 weeks was supposed to go to assisted living apparently the 2 sons will manage her affairs decided to hire extra help and bring her home which patient has been starting again same thing like last time not been able to ambulate and walk not been able to be independent on her own. Apparently last few days has been having rough time using the walker with worsening left upper extremity pain discomfort and weakness she did not remember a mention having any fall lately but sometime just could not grab the walker and walk and could not use the left side become a lot weaker than expected since same side she had a stroke on last time. Workup in the emergency department after arrived by EMS With pulse ox 94 percentile pulse still running slightly below sometimes in the 40s and 50s blood pressure was 105/48. Laboratory value with mild anemia not c hanged since last time UA was negative and chemistry did not show any acute kidney injury this time. CAT scan of the brain showed no acute intracranial process with old lacunar infarct in the prior infarct mostly in the right thalamic lacunar area and old right frontal parietal infarct as well. Also she has chronic appearing periventricular white matter ischemic change similar to small vessel disease. The patient was admitted to the hospital will require again physical therapy for her debility my conclusion there is no sign of new stroke compared to the last 1 and patient having difficult time walking can be the impact of her arthritis along with the impact of her bradycardia which from few months ago family had declined doing pacer when was needed for severe bradycardia was more symptomatic causing syncope. Will talk to the kids again about the plan whether assisted living is in the resident for them on chest patient need to be treated and expect to return home. REVIEW OF SYSTEMS: CONSTITUTIONAL: Elderly slightly confused in no acute respiratory distress. EYES: No icterus sclerae, no conjunctivitis. EARS, NOSE, MOUTH, THROAT, and FACE: No sore throat, lymphadenopathy, carotid bruits or deformity. RESPIRATORY: No SOB cough or wheezes. CARDIOVASCULAR: No CP, Palpitation, PND, Orthopnea, or angina. Positive arrhythmia. GASTROINTESTINAL: No Abd pain, Nausea or vomiting, no Diarrhea or constipation, No GI Bleed, no distention or masses. GENITOURINARY: Negative for Hematuria or UTI, no kidney stones. INTEGUMENT/BREAST: Negative for any muscular injury with mild osteoarthritis.. Significant back pain. HEMATOLOGIC/LYMPHATIC: Negative for bleed or purpura. Back: Continue to have debilitated discomfort in the lower lumbar area shooting toward the lower extremity specially the right side. MUSCULOSKELTAL: Severe myalgia and arthralgia with slight weakness in the left upper extremity and severe fatigue tiredness of the lower extremities as well. NEURLOGICAL: No LOC, Sz or syncope, blurred vision dizziness or abnormality.. BEHAVIORAL/PSYCH: Negative. ENDOCRINE: Negative. PHYSICAL EXAMINATION: General Appearance: Alert, cooperative, significantly confused no acute respiratory distress. Neck HEENT: Supple, no lymphadenopathy, no thyroid enlargement, no carotid bruits. Lungs: Clear to auscultation without crackles or wheezes no rhonchi, no deformity. Chest Wall: Chest wall normal expansion with deep inspiration no tenderness and no deformity was found on exam, no costochondral pain or discomfort. Heart: Irregular rate and rhythm, S1, S2 normal, no murmur, rub or gallop. Back: Significant discomfort lower back area with significant scoliosis and mild kyphosis with slight tenderness in the lumbar spine. Abdomen: Soft, non-tender, bowel sounds active all four quadrants, no masses, no organomegaly. Extremities: Extremities normal, atraumatic, no cyanosis or edema. Pulses: 2+ and symmetric. Skin: Skin color, texture, tugor normal, no rashes or lesions. Neurologic: Alert significantly confused, cranial nerves II through XII intact, slight generalized weakness in the right side compared to the left side with severe abnormal balance and gait. ASSESSMENT AND PLAN: _Possible new stroke affecting the left side making it much weaker, will continue to do not neuroexam watch symptoms carefully consult neurology whether need to do another MRI of the brain or not this to be determined. _Dyspnea and shortness of breath: Most likely congestive heart failure systolic dysfunction which patient has been treated for it so far when patient is more bradycardic she become more symptomatic. _Severe bradycardia: The patient will be kept on heart monitor EKG will be done the finding still in the 40s will consult cardiology and see if any of her symptoms can be explained by bradycardia might be corrected by doing pacemaker. _History of COPD with no flareup lately remain on updraft treatment and O2. _A-fib with RVR: Pulse rates under control continue Eliquis. _Advanced dementia: Has been on donepezil and Seroquel continue both medication. _Intractable lower back pain with worsening symptom consistent with bulging disc and spinal stenosis she is on medical management only. _Hypertension: Continue amlodipine 10 mg a day avoid beta-noam especially with her bradycardia still on isosorbide and furosemide as well. _Debility: Secondary to overall general condition with chronic lower back pain, previous history of CVA, COPD, advanced dementia patient most likely require placement and further at assisted living or longterm. _GI prophylaxis: Remain on Pepcid. _DVT prophylaxis: Remain on Eliquis. CODE STATUS: Full code. Admit patient to the inpatient service for more than 2 night stay. 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 Past Psychological History: Anxiety Additional Psychological History / Comment(s): . Smoking Status: Former smoker Past Alcohol Use History: None Reported Additional Past Alcohol Use History / Comment(s): 1 PPD STARTED SMOKING AT AGE 15 QUIT IN 1984 SMOKED 1PPD Past Drug Use History: None Reported - Past Family History Brother(s) Family Medical History: Cancer Sister(s) Family Medical History: Cancer Mother Additional Family Medical History / Comment(s): enlarged heart Medications and Allergies Home Medications Medication Instructions Recorded Confirmed Type Pantoprazole [Protonix] 40 mg PO DAILY 04/11/18 12/08/23 History Albuterol Inhaler [Ventolin Hfa 2 puff INHALATION RT-Q6H PRN 04/29/22 12/08/23 History Inhaler] Apixaban [Eliquis] 2.5 mg PO BID 04/29/22 12/08/23 History DULoxetine HCL [Cymbalta] 30 mg PO DAILY 04/29/22 12/08/23 History Furosemide [Lasix] 20 mg PO Q48H 04/29/22 12/08/23 History Isosorbide Mononitrate ER [Imdur] 30 mg PO DAILY 04/29/22 12/08/23 History Cholecalciferol [Vitamin D3 (25 25 mcg PO DAILY 09/30/22 12/08/23 History Mcg = 1000 Iu)] Ascorbic Acid [Vitamin C] 500 mg PO DAILY 10/27/22 12/08/23 History Clopidogrel [Plavix] 75 mg PO DAILY 30 Days #30 tab 12/28/22 12/08/23 Rx Atorvastatin [Lipitor] 10 mg PO DAILY 03/04/23 12/08/23 History Ferrous Sulfate [Iron (65 MG 325 mg PO DAILY 03/04/23 12/08/23 History Elemental)] QUEtiapine [SEROquel] 37.5 mg PO HS 08/01/23 12/08/23 History amLODIPine [Norvasc] 10 mg PO DAILY 09/05/23 12/08/23 History Acetaminophen Tab [Tylenol] 325 mg PO Q6H PRN 10/29/23 12/08/23 History Donepezil [Aricept] 10 mg PO HS 10/29/23 12/08/23 History Melatonin 5 mg PO HS 10/29/23 12/08/23 History Acetaminophen-Codeine 300-30mg 1 tab PO Q6H PRN 3 Days #12 tablet 11/02/2302/18 Rx [Tylenol w/codeine #3] Allergies Allergy/AdvReac Type Severity Reaction Status Date / Time No Known Allergies Allergy Verified 12/08/23 20:15 Physical Exam Vitals: Vital Signs Temp Pulse Pulse Resp BP BP Pulse Ox 12/08/23 23:18 97.3 F L 44 L 16 106/39 93 L 12/08/23 20:14 47 L 18 111/62 98 12/08/23 20:00 60 18 12/08/23 19:52 97.5 F L 60 16 97/45 94 L 12/08/23 16:30 58 L 17 105/48 98 12/08/23 14:27 98.0 F 66 20 101/50 100 12/08/23 13:36 95 12/08/23 13:27 97.9 F 48 L 20 105/58 90 L Intake and Output 12/08/23 12/08/23 12/09/23 14:59 22:59 06:59 Output Total 0 Balance 0 Output: Urine 0 Other: Voiding Method Toilet Bedside Commode Weight 61.235 kg 61.235 kg Results CBC & Chem 7: 12/08/23 15:58 12/08/23 15:58 Labs: Abnormal Lab Results - Last 24 Hours (Table) 12/08/23 12/08/23 12/08/23 Range/Units 13:47 15:58 15:58 RBC 3.46 L (3.80-5.40) m/uL Hgb 9.1 L (11.4-16.0) gm/dL Hct 30.4 L (34.0-46.0) % MCHC 29.9 L (31.0-37.0) g/dL RDW 19.9 H (11.5-15.5) % Lymphocytes # 0.9 L (1.0-4.8) k/uL Chloride 108 H (98-107) mmol/L BUN 23 H (7-17) mg/dL Total Protein 6.2 L (6.3-8.2) g/dL Urine Protein Trace H (Negative) Thrombosis Risk Factor Assmnt - Choose All That Apply Any of the Below Risk Factors Present?: No Other Risk Factors: Yes Each Risk Factor Represents 3 Points: Age 75 years or older Other congenital or acquired thrombophilia - If yes, enter type in comment: No Thrombosis Risk Factor Assessment Total Risk Factor Score: 3 Thrombosis Risk Factor Assessment Level: Moderate Risk
[2023-12-09] MEDS: ALBUTEROL HFA INHALER INHALATION PRN (16:28)
[2023-12-09] MEDS: FUROSEMIDE 20 MG TAB PO SCH (21:51)
--- NOTE | 2023-12-09 21:58 | P.PN ---
Subjective Progress Note Date: 12/09/23 HISTORY OF PRESENT ILLNESS: 88-year-old with active medical history of CVA with left-sided weakness, with mild spinal stenosis, history of cognitive impairment and memory loss, hy perglycemia, mild systolic congestive heart failure, recurrent UTI who was in and out subacute rehab at [facility] few times in the last few weeks last time was 4 debility secondary to lower back pain along with stroke and COPD could not ambulate and walk and that being the hospital for few days and sent to [facility] were spent almost 3 weeks was supposed to go to assisted living apparently the 2 sons will manage her affairs decided to hire extra help and bring her home which patient has been starting again same thing like last time not been able to ambulate and walk not been able to be independent on her own. Apparently last few days has been having rough time using the walker with worsening left upper extremity pain discomfort and weakness she did not remember a mention having any fall lately but sometime just could not grab the walker and walk and could not use the left side become a lot weaker than expected since same side she had a stroke on last time. Workup in the emergency department after arrived by EMS With pulse ox 94 percentile pulse still running slightly below sometimes in the 40s and 50s blood pressure was 105/48. Laboratory value with mild anemia not changed since last time UA was negative and chemistry did not show any acute kidney injury this time. CAT scan of the brain showed no acute intracranial process with old lacunar infarct in the prior infarct mostly in the right thalamic lacunar area and old right frontal parietal infarct as well. Also she has chronic appearing periventricular white matter ischemic change similar to small vessel disease. The patient was admitted to the hospital will require again physical therapy for her debility my conclusion there is no sign of new stroke compared to the last 1 and patient having difficult time walking can be the impact of her arthritis along with the impact of her bradycardia which from few months ago family had declined doing pacer when was needed for severe bradycardia was more symptomatic causing syncope. Will talk to the kids again about the plan whether assisted living is in the resident for them on chest patient need to be treated and expect to return home. 12/09/2023: I have long discussion with the son today who was at the bedside explained to him was going on with his mom review her nuclear monitoring technician from which showing her pulse rate running in the 30s and 40s the patient is extremely exhausted tired and having more symptoms he is frustrated how many times she get up in the middle of the night use of bathroom and every time there is a high risk for fall she is very restless and night. She promised to think and talk to his brother about possibility of his mom going for pacemaker which in my opinion will help to make the tiredness fatigue and lightheadedness would probably this exhaustion much better as she is quite bradycardic most of the day and significantly at nighttime. Also he promised to think about the possibility of having her doing Jay catheter and go home with Jay catheter for the next 2 months and have a nurse at home try to manage it with the better and prepare for getting her more rest not having to get up many times at night use the bathroom since he believes she is having a lot more polyuria at nighttime. Waiting for cardiology consultation today otherwise and truthfully I do not see any reason for patient to see neurology since there is no finding consistent with any extension of stroke or new stroke at this point continue current finding from previous admission and previous testing for stroke or mini stroke. Mrs. Medrano truthfully still have significant debilitated condition require more help apparently the family have put more effort and help at home since she left [facility] last time but still having more problem and frustrating to her and her family I can manage it and if we can improve the tiredness fatigue and the multi urination at nighttime may be will be again plan for both family and patient. REVIEW OF SYSTEMS: CONSTITUTIONAL: Elderly slightly confused in no acute respiratory distress. EYES: No icterus sclerae, no conjunctivitis. EARS, NOSE, MOUTH, THROAT, and FACE: No sore throat, lymphadenopathy, carotid bruits or deformity. RESPIRATORY: No SOB cough or wheezes. CARDIOVASCULAR: No CP, Palpitation, PND, Orthopnea, or angina. Positive arrhythmia. GASTROINTESTINAL: No Abd pain, Nausea or vomiting, no Diarrhea or constipation, No GI Bleed, no distention or masses. GENITOURINARY: Negative for Hematuria or UTI, no kidney stones. INTEGUMENT/BREAST: Negative for any muscular injury with mild osteoarthritis.. Significant back pain. HEMATOLOGIC/LYMPHATIC: Negative for bleed or purpura. Back: Continue to have debilitated discomfort in the lower lumbar area shooting toward the lower extremity specially the right side. MUSCULOSKELTAL: Severe myalgia and arthralgia with slight weakness in the left upper extremity and severe fatigue tiredness of the lower extremities as well. NEURLOGICAL: No LOC, Sz or syncope, blurred vision dizziness or abnormality.. BEHAVIORAL/PSYCH: Negative. ENDOCRINE: Negative. PHYSICAL EXAMINATION: General Appearance: Alert, cooperative, significantly confused no acute respiratory distress. Neck HEENT: Supple, no lymphadenopathy, no thyroid enlargement, no carotid bruits. Lungs: Clear to auscultation without crackles or wheezes no rhonchi, no deformity. Chest Wall: Chest wall normal expansion with deep inspiration no tenderness and no deformity was found on exam, no costochondral pain or discomfort. Heart: Irregular rate and rhythm, S1, S2 normal, no murmur, rub or gallop. Back: Significant discomfort lower back area with significant scoliosis and mild kyphosis with slight tenderness in the lumbar spine. Abdomen: Soft, non-tender, bowel sounds active all four quadrants, no masses, no organomegaly. Extremities: Extremities normal, atraumatic, no cyanosis or edema. Pulses: 2+ and symmetric. Skin: Skin color, texture, tugor normal, no rashes or lesions. Neurologic: Alert significantly confused, cranial nerves II through XII intact, slight generalized weakness in the right side compared to the left side with severe abnormal balance and gait. ASSESSMENT AND PLAN: _Possible new stroke affecting the left side making it much weaker, continue to monitor patient carefully there is no new weakness at this point and the same finding from previous stroke has been on without any change. _Severe bradycardia: Watching patient on nuclear monitoring technician through the night has been running in the low 40 and sometimes 30 patient was quite bit symptomatic and even the discussion 4-month ago for pacemaker when family declined allowing her to go for it at this point it seems like his family are agreeable to it to some degree his son will talk to his brother and will make their decision by tomorrow. _Altered mental status: Most likely combination of severe bradycardia along with extension of her dementia mostly more than stroke or new stroke. _Dyspnea and shortness of breath: Most likely congestive heart failure systolic dysfunction which patient has been treated for it so far when patient is more bradycardic she become more symptomatic. _History of COPD with no flareup lately remain on updraft treatment and O2. _A-fib with RVR: Pulse rates under control continue Eliquis. _Advanced dementia: Has been on donepezil and Seroquel continue both medication. _Intractable lower back pain with worsening symptom consistent with bulging disc and spinal stenosis she is on medical management only. _Hypertension: Continue amlodipine 10 mg a day avoid beta-noam especially with her bradycardia still on isosorbide and furosemide as well. _Debility: Secondary to overall general condition with chronic lower back pain, previous history of CVA, COPD, advanced dementia and severe bradycardia may be a 16 bradycardia and are quite incontinence and frequency and urgency might help patient to being home with less help with less risk for problem so the 2 common thing at this point is to see if patient will benefit from going for pacemaker and second thing to do an indwelling Jay catheter for couple months. Objective - Vital Signs Vital signs: Vital Signs Temp 97.8 F 12/09/23 08:00 Pulse 69 12/09/23 08:00 Resp 16 12/09/23 08:00 BP 130/62 12/09/23 08:00 Pulse Ox 96 12/09/23 08:00 FiO2 Intake & Output 12/08/23 12/09/23 12/09/23 18:59 06:59 18:59 Output Total 0 Balance 0 Weight 61.235 kg 57 kg Output: Urine 0 Other: Voiding Method Toilet Bedside Commode - Labs CBC & Chem 7: 12/09/23 06:30 12/09/23 06:30 Labs: Abnormal Lab Results - Last 24 Hours (Table) 12/08/23 12/08/23 12/08/23 Range/Units 13:47 15:58 15:58 RBC 3.46 L (3.80-5.40) m/uL Hgb 9.1 L (11.4-16.0) gm/dL Hct 30.4 L (34.0-46.0) % MCHC 29.9 L (31.0-37.0) g/dL RDW 19.9 H (11.5-15.5) % Lymphocytes # 0.9 L (1.0-4.8) k/uL Chloride 108 H (98-107) mmol/L BUN 23 H (7-17) mg/dL Glucose (74-99) mg/dL Total Protein 6.2 L (6.3-8.2) g/dL Albumin (3.5-5.0) g/dL Urine Protein Trace H (Negative) 12/09/23 12/09/23 Range/Units 06:30 06:30 RBC 3.38 L (3.80-5.40) m/uL Hgb 8.8 L (11.4-16.0) gm/dL Hct 30.2 L (34.0-46.0) % MCHC 29.0 L (31.0-37.0) g/dL RDW 19.6 H (11.5-15.5) % Lymphocytes # (1.0-4.8) k/uL Chloride (98-107) mmol/L BUN 30 H (7-17) mg/dL Glucose 122 H (74-99) mg/dL Total Protein 5.7 L (6.3-8.2) g/dL Albumin 3.1 L (3.5-5.0) g/dL Urine Protein (Negative)
[2023-12-10 06:43] LABS: Anisocytosis Slight; Basophils % (A) 0 %; Eosinophils % (A) 0 %; HCT 27.4 % (34.0-46.0); HGB 8.1 gm/dL (11.4-16.0); Hypochromasia Marked; Lymphocytes # (A) 1.4 k/uL (1.0-4.8); Lymphocytes % (A) 18 %; MCH 26.1 pg (25.0-35.0); MCHC 29.5 g/dL (31.0-37.0); MCV 88.6 fL (80.0-100.0); Mean Platelet Volume 6.7; Monocytes # (A) 0.6 k/uL (0-1.0); Monocytes % (A) 7 %; Neutrophils # (A) 5.5 k/uL (1.3-7.7); Neutrophils % (A) 72 %; Platelet Count 332 k/uL (150-450); RBC 3.09 m/uL (3.80-5.40); RDW 19.8 % (11.5-15.5); WBC 7.8 k/uL (3.8-10.6)
[2023-12-10 07:09] LABS: ALT 13 U/L (4-34); AST 23 U/L (14-36); African American GFR (CKD) 70 (>60 ml/min/1.73 sqM); Albumin 3.1 g/dL (3.5-5.0); Alkaline Phosphatase 59 U/L (38-126); Anion Gap 3 mmol/L; Blood Urea Nitrogen 31 mg/dL (7-17); Calcium 9.3 mg/dL (8.4-10.2); Carbon Dioxide 32 mmol/L (22-30); Chloride 105 mmol/L (98-107); Glucose 83 mg/dL (74-99); Non-African American GFR(CKD) 61 (>60 ml/min/1.73 sqM); Potassium 4.4 mmol/L (3.5-5.1); Sodium 140 mmol/L (137-145); Total Bilirubin 0.2 mg/dL (0.2-1.3); Total Protein 5.5 g/dL (6.3-8.2)
[2023-12-10] MEDS: ALPRAZolam 0.25 MG TAB PO PRN (12:05)
--- NOTE | 2023-12-10 12:17 | P.CRDCN ---
History of Present Illness History of present illness: HISTORY OF PRESENT ILLNESS: This is a 88-year-old female with a past medical history significant for CVA, COPD, dementia, and atrial fibrillation. Patient follows in the office with Dr. Lott. We have been asked to see the patient in consultation for bradycardia. Patient examined at the bedside. Patient is sitting up in the chair. There is no family present at the time of examination. Per patient's nurse, patient presented to the hospital with increasing weakness and concern for CVA. The patient denies having any chest pain or pressure. She denies any shortness of breath. Telemetry this morning reveals sinus mechanism with heart rate in the 60s. Overnight, the patient's heart rates have been in the 50s with dips down into the 40s. No heart block or significant pauses have been noted. The patient currently denies any dizziness or lightheadedness. There have been no reported episodes of syncope. DIAGNOSTICS: - EKG reveals sinus mechanism with nonspecific ST-T wave changes. No signs of acute ischemia. - CT brain: No acute intracranial process. Old lacunar infarct in prior infarct noted. - Laboratory data: WBC 7.8. Hemoglobin 8.1. Platelet count 332. Sodium 140. Potassium 4.4. BUN 31. Creatinine 0.86. Magnesium 2.0. TSH 1.540. - Current home cardiac medications include Eliquis 2.5 mg twice a day, Lipitor 10 mg daily, Plavix 75 mg daily, Lasix 20 mg every 2 days, Imdur 30 mg daily, amlodipine 10 mg daily - Most recent echocardiogram obtained in February 2023 revealing ejection fraction 60 to 65% with mild TR and mild pulmonary pretension - Cardiac catheterization history: January 2019 which was negative for ischemia REVIEW OF SYSTEMS: At the time of my exam: CONSTITUTIONAL: Denies fever or chills. HEENT: Denies blurred vision, vision changes, or eye pain. Denies hemoptysis CARDIOVASCULAR: Denies chest pain. Denies orthopnea. Denies PND. Denies palpitations RESPIRATORY: Denies shortness of breath. GASTROINTESTINAL: Denies abdominal pain. Denies nausea or vomiting. HEMATOLOGIC: Denies bleeding disorders. GENITOURINARY: Denies any blood in urine. SKIN: Denies pruitis. Denies rash. PHYSICAL EXAM: VITAL SIGNS: Reviewed. GENERAL: Well-developed in no acute distress. HEENT: Head is normocephalic. Pupils are equal, round. Sclerae anicteric. Mucous membranes of the mouth are moist. Neck supple. No JVD or thyromegaly LUNGS: Respirations even and unlabored. Lungs essentially clear to auscultation bilaterally. HEART: Regular rate and rhythm. S1 and S2 heard. ABDOMEN: Soft. Nondistended. Nontender. EXTREMITIES: Normal range of motion. No clubbing or cyanosis. Peripheral pulses intact. No lower extremity edema NEUROLOGIC: Awake and alert. ASSESSMENT: Worsening generalized weakness, rule out neurologic etiology Asymptomatic bradycardia without episodes of syncope Paroxysmal atrial fibrillation, currently maintaining sinus mechanism History of CVA History of COPD History of dementia PLAN: Obtain 2D echo to assess cardiac structure and function TSH checked and within normal limits Continue telemetry monitoring Consult neurology for worsening weakness. Additionally Dr. Lott thought patient had slowing of her speech this morning Patients bradycardia is not an acute issue. Patient has had bradycardia for several months now. Patient without complaints of dizziness or lightheadedness. No episodes of syncope have been reported. Patient's heart rate is currently in the 60s at the time of examination. She does become bradycardic at night with heart rate into the 40s and 50s. No significant pauses or heart block have been noted. No plans for pacemaker implantation at this time per Dr. Kaylie Lott to discuss with patients son when he arrives Further recommendations pending patient course Nurse practitioner note has been reviewed by physician. Signing provider agrees with the documented findings, assessment, and plan of care documented by SOURCING SPECIALIST as a scribe. 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 Past Psychological History: Anxiety Additional Psychological History / Comment(s): . Smoking Status: Former smoker Past Alcohol Use History: None Reported Additional Past Alcohol Use History / Comment(s): 1 PPD STARTED SMOKING AT AGE 15 QUIT IN 1984 SMOKED 1PPD Past Drug Use History: None Reported - Past Family History Brother(s) Family Medical History: Cancer Sister(s) Family Medical History: Cancer Mother Additional Family Medical History / Comment(s): enlarged heart Medications and Allergies Home Medications Medication Instructions Recorded Confirmed Type Pantoprazole [Protonix] 40 mg PO DAILY 04/11/18 12/08/23 History Albuterol Inhaler [Ventolin Hfa 2 puff INHALATION RT-Q6H PRN 04/29/22 12/08/23 History Inhaler] Apixaban [Eliquis] 2.5 mg PO BID 04/29/22 12/08/23 History DULoxetine HCL [Cymbalta] 30 mg PO DAILY 04/29/22 12/08/23 History Furosemide [Lasix] 20 mg PO Q48H 04/29/22 12/08/23 History Isosorbide Mononitrate ER [Imdur] 30 mg PO DAILY 04/29/22 12/08/23 History Cholecalciferol [Vitamin D3 (25 25 mcg PO DAILY 09/30/22 12/08/23 History Mcg = 1000 Iu)] Ascorbic Acid [Vitamin C] 500 mg PO DAILY 10/27/22 12/08/23 History Clopidogrel [Plavix] 75 mg PO DAILY 30 Days #30 tab 12/28/22 12/08/23 Rx Atorvastatin [Lipitor] 10 mg PO DAILY 03/04/23 12/08/23 History Ferrous Sulfate [Iron (65 MG 325 mg PO DAILY 03/04/23 12/08/23 History Elemental)] QUEtiapine [SEROquel] 37.5 mg PO HS 08/01/23 12/08/23 History amLODIPine [Norvasc] 10 mg PO DAILY 09/05/23 12/08/23 History Acetaminophen Tab [Tylenol] 325 mg PO Q6H PRN 10/29/23 12/08/23 History Donepezil [Aricept] 10 mg PO HS 10/29/23 12/08/23 History Melatonin 5 mg PO HS 10/29/23 12/08/23 History Acetaminophen-Codeine 300-30mg 1 tab PO Q6H PRN 3 Days #12 tablet 11/02/23 12/08/23 Rx [Tylenol w/codeine #3] Allergies Allergy/AdvReac Type Severity Reaction Status Date / Time No Known Allergies Allergy Verified 12/08/23 20:15 Physical Exam Vitals: Vital Signs Temp Pulse Resp BP Pulse Ox 12/10/23 08:00 98.2 F 50 L 16 173/73 100 12/10/23 04:00 98 F 52 L 16 126/69 97 12/10/23 02:00 51 L 14 12/10/23 00:00 97.6 F 51 L 14 132/68 99 12/09/23 20:00 97.8 F 50 L 16 123/49 98 12/09/23 15:29 98.1 F 65 16 121/55 97 12/09/23 14:00 56 L 16 Intake and Output 12/09/23 12/10/23 12/10/23 22:59 06:59 14:59 Intake Total 360 80 Output Total 300 Balance 60 80 Intake: Intake, IV Titration 80 Amount Sodium Chloride 0.9% 1, 80 000 ml @ 20 mls/hr IV . Q24H [facility] Rx#:[id number] Oral 360 Output: Urine 300 Other: Voiding Method Toilet Bedside Commode Bedside Commode Bedside Commode # Voids 1 Weight 61.5 kg Results 12/10/23 06:08 12/10/23 06:08 Cardiac Enzymes 12/10/23 Range/Units 06:08 AST 23 (14-36) U/L CBC 12/10/23 Range/Units 06:08 WBC 7.8 (3.8-10.6) k/uL RBC 3.09 L (3.80-5.40) m/uL Hgb 8.1 L (11.4-16.0) gm/dL Hct 27.4 L (34.0-46.0) % Plt Count 332 (150-450) k/uL Comprehensive Metabolic Panel 12/10/23 Range/Units 06:08 Sodium 140 (137-145) mmol/L Potassium 4.4 (3.5-5.1) mmol/L Chloride 105 (98-107) mmol/L Carbon Dioxide 32 H (22-30) mmol/L BUN 31 H (7-17) mg/dL Creatinine 0.86 (0.52-1.04) mg/dL Glucose 83 (74-99) mg/dL Calcium 9.3 (8.4-10.2) mg/dL AST 23 (14-36) U/L ALT 13 (4-34) U/L Alkaline Phosphatase 59 (38-126) U/L Total Protein 5.5 L (6.3-8.2) g/dL Albumin 3.1 L (3.5-5.0) g/dL Current Medications Generic Name Dose Route Start Last Admin Trade Name Freq PRN Reason Stop Dose Admin Acetaminophen 325 mg 12/08/23 18:45 Acetaminophen Tab 325 Mg Tab PO Q6H PRN Pain or Fever > 100.5 Acetaminophen/Codeine Phosphate 1 each 12/08/23 18:45 12/09/23 09:08 Acetaminophen-Codeine 300-30mg Tab PO 1 each Q6H PRN Administration Pain Al Hydroxide/Mg Hydroxide 15 ml 12/08/23 18:42 Mag Hydrox/Al Hydrox/Simeth 30 Ml Cup PO Q6HR PRN Indigestion Albuterol Sulfate 2 puff 12/08/23 18:45 12/09/23 16:28 Albuterol Hfa Inhaler INHALATION 2 puff RT-Q6H PRN Administration Shortness Of Breath Alprazolam 0.25 mg 12/10/23 11:54 Alprazolam 0.25 Mg Tab PO TID PRN Anxiety Amlodipine Besylate 10 mg 12/09/23 09:00 12/10/23 09:23 Amlodipine 10 Mg Tab PO 10 mg DAILY JARETH Administration Apixaban 2.5 mg 12/08/23 21:00 12/10/23 09:24 Apixaban 2.5 Mg Tablet PO 2.5 mg BID JARETH Administration Protocol Ascorbic Acid 500 mg 12/09/23 09:00 12/10/23 09:23 Ascorbic Acid 500 Mg Tab PO 500 mg DAILY JARETH Administration Atorvastatin Calcium 10 mg 12/09/23 09:00 12/10/23 09:23 Atorvastatin 10 Mg Tab PO 10 mg DAILY JARETH Administration Cholecalciferol 25 mcg 12/09/23 09:00 12/10/23 09:29 Cholecalciferol 25 Mcg (1000 Iu) Tablet PO 25 mcg DAILY JARETH Administration Clopidogrel Bisulfate 75 mg 12/09/23 09:00 12/10/23 09:23 Clopidogrel 75 Mg Tab PO 75 mg DAILY JARETH Administration Duloxetine HCl 30 mg 12/09/23 09:00 12/10/23 09:23 Duloxetine Hcl 30 Mg Capsule.Dr PO 30 mg DAILY JARETH Administration Famotidine 20 mg 12/08/23 21:00 12/10/23 09:23 Famotidine 20 Mg Tab PO 20 mg DAILY JARETH Administration Ferrous Sulfate 325 mg 12/09/23 09:00 12/10/23 09:24 Ferrous Sulfate 325 Mg Tab PO 325 mg DAILY JARETH Administration Furosemide 20 mg 12/09/23 20:00 12/09/23 21:51 Furosemide 20 Mg Tab PO 20 mg Q2D JARETH Administration Sodium Chloride 1,000 mls @ 20 mls/hr 12/08/23 18:45 12/09/23 23:21 Saline 0.9% IV Not Given .Q24H JARETH Isosorbide Mononitrate 30 mg 12/09/23 09:00 12/10/23 09:23 Isosorbide Mononitrate Er 30 Mg Tab.Er.24h PO 30 mg DAILY JARETH Administration Melatonin 5 mg 12/08/23 21:00 12/09/23 21:51 Melatonin 5 Mg Tablet PO 5 mg HS JARETH Administration Naloxone HCl 0.2 mg 12/08/23 18:42 Naloxone 0.4 Mg/Ml 1 Ml Vial IV Q2M PRN Opioid Reversal Pantoprazole Sodium 40 mg 12/09/23 09:00 12/10/23 09:23 Pantoprazole 40 Mg Tablet PO 40 mg DAILY JARETH Administration Quetiapine Fumarate 37.5 mg 12/08/23 21:00 12/09/23 21:51 Quetiapine 25 Mg Tab PO 37.5 mg HS JARETH Administration Intake and Output 12/09/23 12/10/23 12/10/23 22:59 06:59 14:59 Intake Total 360 80 Output Total 300 Balance 60 80 Intake: Intake, IV Titration 80 Amount Sodium Chloride 0.9% 1, 80 000 ml @ 20 mls/hr IV . Q24H [facility] Rx#:[id number] Oral 360 Output: Urine 300 Other: Voiding Method Toilet Bedside Commode Bedside Commode Bedside Commode # Voids 1 Weight 61.5 kg 12/10/23 06:08 12/10/23 06:08
--- NOTE | 2023-12-10 13:06 | CA ---
Transthoracic Echo Report Name: Kate Medrano Age: 88 Gender: F : 1935 Exam Date: 12/10/2023 09:28 Exam Location: [place] [facility] Ht (in): 65 Wt (lb): 135 Ordering Physician: Darshana Bentley Attending/Referring Phys: [id number], [employer] Alyse Roberts RDCS Procedure CPT: Indications: bradycardia, lv function Cardiac Hx: Technical Quality: Fair Contrast 1: Total Dose (mL): Contrast 2: Total Dose (mL): MEASUREMENTS (Male / Female) Normal Values 2D ECHO LV Diastolic Diameter PLAX 4.6 cm 4.2 - 5.9 / 3.9 - 5.3 cm LV Systolic Diameter PLAX 3.0 cm IVS Diastolic Thickness 0.7 cm 0.6 - 1.0 / 0.6 - 0.9 cm LVPW Diastolic Thickness 0.9 cm 0.6 - 1.0 / 0.6 - 0.9 cm LV Relative Wall Thickness 0.3 LVOT Diameter 1.7 cm LV Diastolic Volume MOD BP 83.8 cm??? 67 - 155 / 56 - 104 cm??? LV Systolic Volume MOD BP 31.8 cm??? 22 - 58 / 19 - 49 cm??? LV Ejection Fraction MOD BP 62.1 % >= 55 % LV Cardiac Index MOD BP 1642.8 cm???/min???m??? LV Diastolic Volume MOD 4C 84.7 cm??? LV Systolic Volume MOD 4C 33.8 cm??? LV Ejection Fraction MOD 4C 60.1 % LV Cardiac Index MOD 4C 1606.6 cm???/min???m??? LV Diastolic Length 4C 7.7 cm LV Systolic Length 4C 6.7 cm LV Diastolic Volume MOD 2C 81.2 cm??? LV Systolic Volume MOD 2C 28.7 cm??? LV Ejection Fraction MOD 2C 64.7 % LV Cardiac Index MOD 2C 1658.7 cm???/min???m??? LV Diastolic Length 2C 7.9 cm LV Systolic Length 2C 6.4 cm LA Volume 71.1 cm??? 18 - 58 / 22 - 52 cm??? LA Volume Index 42.4 cm???/m??? 16 - 28 cm???/m??? Ascending Aorta Diameter 2.8 cm DOPPLER AV Peak Velocity 180.8 cm/s AV Peak Gradient 13.1 mmHg AV Mean Velocity 102.9 cm/s AV Mean Gradient 5.2 mmHg AV Velocity Time Integral 39.0 cm LVOT Peak Velocity 121.7 cm/s LVOT Peak Gradient 5.9 mmHg LVOT Velocity Time Integral 26.2 cm LVOT Stroke Volume 57.7 cm??? LVOT Stroke Volume Index 34.5 ml/m??? LVOT Cardiac Index 1820.2 cm???/min???m??? AV Area Cont Eq vti 1.5 cm??? AV Area Cont Eq pk 1.5 cm??? MV Area PHT 3.9 cm??? Mitral E Point Velocity 67.0 cm/s Mitral A Point Velocity 72.7 cm/s Mitral E to A Ratio 0.9 MV Deceleration Time 196.2 ms TR Peak Velocity 361.5 cm/s TR Peak Gradient 52.3 mmHg Right Atrial Pressure 20.0 mmHg Pulmonary Artery Systolic Pressu 72.3 mmHg Right Ventricular Systolic Press 72.3 mmHg PV Peak Velocity 96.1 cm/s PV Peak Gradient 3.7 mmHg FINDINGS Left Ventricle Left ventricular ejection fraction is estimated at 60-65 %. Left ventricular cavity size normal. Moderate to severe left ventricular wall thickness normal. No obvious regional wall motion abnormalities. Right Ventricle Mild right ventricular dilatation with normal function. Severe pulmonary hypertension. Right Atrium Normal right atrial size. Left Atrium Moderately increased left atrial volume. Mildly increased left atrial area. Mitral Valve Structurally normal mitral valve. No evidence for mitral valve prolapse. No mitral stenosis. Trace mitral regurgitation. Aortic Valve Trileaflet aortic valve. No aortic valve stenosis or regurgitation. Tricuspid Valve Structurally normal tricuspid valve. No tricuspid stenosis. Mild tricuspid regurgitation. Pulmonic Valve Structurally normal pulmonic valve. No pulmonic regurgitation. Trace pulmonic regurgitation. Pericardium No pericardial effusion. Aorta Normal size aortic root and proximal ascending aorta. CONCLUSIONS Left ventricular ejection fraction 60-65% Moderate to severe concentric left ventricular thickness with thickness 1.4-1.6 cm. RVSP 72 Trace mitral regurgitation Mild tricuspid regurgitation No pericardial effusion Previewed by: Dr. Jordan Hernandez DO (Electronically Signed) Final Date: 10 December 2023 13:05
--- NOTE | 2023-12-10 14:27 | P.CNNES ---
History of Present Illness Consult date: 12/10/23 Requesting physician: Darshana Bentley Reason for Consult: weakness, slowed speech History of Present Illness: Patient is a 88-year-old female came to the hospital by ambulance on 12/08/2023 at 1:23 PM. As per EMS flowsheet when they arrived, patient was complaining of lower back pain that started the night prior and became worse. Patient states that at this time her back pain is making it difficult for her to get up and walk around the her house. Patient was alert and orient x 4. Patient's vitals at the scene was blood pressure 141/47 pulse rate 58 respiration 18 saturation 95%. Patient was seen by cardiology, and cardiology felt that patient is speaking more slowly than usual and for weakness. This prompted neurology consultation. Patient at present denies any focal symptoms like slurred speech facial droop, or any new visual symptoms or weakness. Patient states that she does not remember why she came here. "It is still up in the air" patient states. She denies any speech difficulty no numbness tingling or weakness. CT head showed no acute intracranial process. Old lacunar infarcts and the prior infarct. Chronic appearing periventricular white matter ischemic type change. On my review, there is evidence of old encephalomalacia involving the right frontal lobe, right caudate, right thalamus and left cerebellum. EKG showed sinus rhythm with first-degree AV block. Home medications include Protonix 40 mg, Cymbalta 30 mg, isosorbide, Lasix, Eliquis 2.5 mg twice daily, Plavix 75 mg, vitamin D, Lipitor 10 mg, ferrous sulfate, Seroquel 37.5 mg at bedtime, amlodipine, melatonin, donepezil 10 mg at bedtime Patient was seen by myself recently on 03/10/2021 for for altered mental status, which was felt to be related to acute delirium. Patient was noted to have mild focal symptoms with right facial droop, right arm weakness. Patient does have bilateral severe ICA stenosis but family had declined any intervention during the admission in December 2022. Patient does have history of bilateral ICA stenosis, but family had declined any intervention in the past. Patient was seen by neurology team including myself on 12/27/2022 for acute ischemic stroke within the peripheral right parietal, temporal and occipital lo bes. Patient was on aspirin and Eliquis at that time. Aspirin was switched to Plavix. Patient has bilateral ICA stenosis, greater than 90% stenosis proximal right ICA and 70% stenosis left proximal ICA. Vascular surgery was consulted, but patient and her sons declined carotid revascularization surgery, or even stenting. Patient has been seen by myself on 05/15/2022 for acute confusion as well. It was felt to be delirium. Patient had a similar episode 3-5 months prior to that admission as well, when she had acute memory issues. She was hospitalized at the [facility] and while in the hospital she became more confused, started lashing out. While in the hospital she was d iagnosed with UTI. Patient's son admits that her short-term memory is not good although long-term memory is very well. No history of seizures. Patient has history of an acute stroke in December 2014 after she recovered from her breast cancer surgery, she could not use her left hand. It took almost 1-2 weeks for her to recover and 2 weeks later she was back to baseline, driving. The patient had low back surgery after which she was started on Coumadin, perhaps for atrial fibrillation. She stayed on Coumadin for years. About 2 or 3 years ago, she was switched to Eliquis. Patient's workup performed previous admission on 12/27/2022 included: CTA of head and neck 12/27/2022 revealed greater than 90% stenosis of the proximal right ICA which has worsened from prior on 07/20/2022. Alternatively, this may represent a short segment of occlusion with backfilling. Right measures up to 4 mm in length. Similar at least 70% stenosis of the left proximal ICA secondary to calcified plaque. Beaded appearance of the right carotid bifurcation which could represent focal nodular hyperplasia. Diminutive right ICA extending from 80 of suspected occlusion versus high grade stenosis into the termination into the [place] de[place] of [place]. No evidence of dissection of the cervical ICA or vertebral arteries. No aneurysm. Carotid duplex 12/22/2022 revealed significant stenosis in the bilateral ICA is taught present. Advise repeat CTA or MRA of the neck to further evaluate. Antegrade flow in both vertebral arteries. Patient had a CTA head and neck done on 07/20/2022 which reported mild stenosis bilateral carotid bifurcations. This is approaching 50% on the left. No acute changes tolowa dee-ni' of [place]. Patient had a carotid Doppler also performed recently on 05/15/2022, which revealed elevated ICA peak systolic velocities likely on the basis of turbulent flow as the end-diastolic velocities and ICA/CCA ratios fall within normal limits. Vascular surgery input appreciated. Discussed with patient's son in detail. They do not believe patient is stable enough to undergo any anesthesia. Patient's family declined carotid stenting as well. Patient was switched from aspirin to Plavix. Continue Eliquis. MRI brain with and without contrast 12/22/2022 revealed acute/subacute foci of ischemia within the peripheral right parietal, temporal and occipital lobes. No abnormal contrast enhancement. Remote ischemic injuries to the right frontal, right parietal occipital, right thalamus and left cerebellum. Nonspecific white matter changes, likely related to chronic small vessel ischemic disease. I personally reviewed MRI agree with the findings. 2D echo 12/25/2022 revealed normal left ventricular size and systolic function with EF 55-60%. Moderate LVH. Trace to mild MR. Mild TR. Normal left atrial size. Lipid panel with cholesterol 101, LDL 51, HDL 37, triglycerides 59. Continue pravastatin 40 mg daily. Hemoglobin A1c 5.9 on 07/20/2022. 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 Past Psychological History: Anxiety Additional Psychological History / Comment(s): . Smoking Status: Former smoker Past Alcohol Use History: None Reported Additional Past Alcohol Use History / Comment(s): 1 PPD STARTED SMOKING AT AGE 15 QUIT IN 1984 SMOKED 1PPD Past Drug Use History: None Reported - Past Family History Brother(s) Family Medical History: Cancer Sister(s) Family Medical History: Cancer Mother Additional Family Medical History / Comment(s): enlarged heart Medications and Allergies Home Medications Medication Instructions Recorded Confirmed Type Pantoprazole [Protonix] 40 mg PO DAILY 04/11/18 12/08/23 History Albuterol Inhaler [Ventolin Hfa 2 puff INHALATION RT-Q6H PRN 04/29/22 12/08/23 History Inhaler] Apixaban [Eliquis] 2.5 mg PO BID 04/29/22 12/08/23 History DULoxetine HCL [Cymbalta] 30 mg PO DAILY 04/29/22 12/08/23 History Furosemide [Lasix] 20 mg PO Q48H 04/29/22 12/08/23 History Isosorbide Mononitrate ER [Imdur] 30 mg PO DAILY 04/29/22 12/08/23 History Cholecalciferol [Vitamin D3 (25 25 mcg PO DAILY 09/30/22 12/08/23 History Mcg = 1000 Iu)] Ascorbic Acid [Vitamin C] 500 mg PO DAILY 10/27/22 12/08/23 History Clopidogrel [Plavix] 75 mg PO DAILY 30 Days #30 tab 12/28/22 12/08/23 Rx Atorvastatin [Lipitor] 10 mg PO DAILY 03/04/23 12/08/23 History Ferrous Sulfate [Iron (65 MG 325 mg PO DAILY 03/04/23 12/08/23 History Elemental)] QUEtiapine [SEROquel] 37.5 mg PO HS 08/01/23 12/08/23 History amLODIPine [Norvasc] 10 mg PO DAILY 09/05/23 12/08/23 History Acetaminophen Tab [Tylenol] 325 mg PO Q6H PRN 10/29/23 12/08/23 History Donepezil [Aricept] 10 mg PO HS 10/29/23 12/08/23 History Melatonin 5 mg PO HS 10/29/23 12/08/23 History Acetaminophen-Codeine 300-30mg 1 tab PO Q6H PRN 3 Days #12 tablet 11/02/23 12/08/23 Rx [Tylenol w/codeine #3] Allergies Allergy/AdvReac Type Severity Reaction Status Date / Time No Known Allergies Allergy Verified 12/08/23 20:15 Physical Examination - Vital Signs Vital Signs: Vital Signs Temp Pulse Resp BP Pulse Ox 12/10/23 08:00 98.2 F 50 L 16 173/73 100 12/10/23 04:00 98 F 52 L 16 126/69 97 12/10/23 02:00 51 L 14 12/10/23 00:00 97.6 F 51 L 14 132/68 99 12/09/23 20:00 97.8 F 50 L 16 123/49 98 12/09/23 15:29 98.1 F 65 16 121/55 97 12/09/23 14:00 56 L 16 Intake and Output 12/09/23 12/10/23 12/10/23 22:59 06:59 14:59 Intake Total 360 80 Output Total 300 Balance 60 80 Intake: Intake, IV Titration 80 Amount Sodium Chloride 0.9% 1, 80 000 ml @ 20 mls/hr IV . Q24H [facility] Rx#:[id number] Oral 360 Output: Urine 300 Other: Voiding Method Toilet Bedside Commode Bedside Commode Bedside Commode # Voids 1 Weight 61.5 kg Patient is an elderly Afro-[place] female, very pleasant, in no acute distress. Patient is sitting comfortably in the recliner. Using Dictate Patient is alert awake, fully oriented. Patient knows it is November and the year is 2023 and that she is in [facility] in [facility]. She knows name of the current president Mr. Gomez. Speech and language functions are normal. Patient can name and repeat very well. No aphasia or dysarthria. Attention, concentration is intact and fund of is adequate for age. Detail cognitive function testing deferred. On cranial nerve examination, pupils are equal, round and reacting to light, visual everett are full on confrontation, with no neglect on double simultaneous stimulation. Extraocular muscles are intact with no nystagmus. Her face is symmetric. Her tongue protrudes to the midline. Palatal elevation and sensation normal, hearing and shoulder shrug normal, facial sensation normal. On muscle strength testing, patient has very mild right pronation, no drift. The muscle strength is (right/left) deltoid 4-/5, biceps 5/5, triceps 5/5, can sorter 5/5-, hip flexion 5/5, ankle dorsiflexion 4+/5, toe extension 1/5. Deep tendon reflexes are symmetric 1 at the biceps, 1 brachioradialis, 1 at the knees 0 ankles and plantars are flat bilaterally. Sensory to touch is equal with no neglect on double simultaneous stimulation. Cerebellar function showed moderate ataxia for [id number] testing only on the left side, but not on the right. No ataxia for [id number] testing on either side. Tone and bulk of muscles normal. Gait deferred. Patient states that she cannot walk because of low back pain. Results - Laboratory Findings CBC and BMP: 12/10/23 06:08 12/10/23 06:08 Abnormal Lab Findings: Abnormal Labs 12/08/23 12/08/23 12/08/23 13:47 15:58 15:58 RBC 3.46 L Hgb 9.1 L Hct 30.4 L MCHC 29.9 L RDW 19.9 H Lymphocytes # 0.9 L Chloride 108 H Carbon Dioxide BUN 23 H Glucose Total Protein 6.2 L Albumin Urine Protein Trace H 12/09/23 12/09/23 12/10/23 06:30 06:30 06:08 RBC 3.38 L 3.09 L Hgb 8.8 L 8.1 L Hct 30.2 L 27.4 L MCHC 29.0 L 29.5 L RDW 19.6 H 19.8 H Lymphocytes # Chloride Carbon Dioxide BUN 30 H Glucose 122 H Total Protein 5.7 L Albumin 3.1 L Urine Protein 12/10/23 06:08 RBC Hgb Hct MCHC RDW Lymphocytes # Chloride Carbon Dioxide 32 H BUN 31 H Glucose Total Protein 5.5 L Albumin 3.1 L Urine Protein Assessment and Plan Assessment: * No evidence of stroke or TIA at this time. Patient denies any focal symptoms. Patient's examination is stable as compared to the last admission. Patient does have bilateral severe ICA stenosis, but family has declined any intervention during the admission in December 2022. 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 Proximal left ICA stenosis, 70% secondary to calcified plaque. * Atrial fibrillation on anticoagulation with Eliquis 2.5 mg twice a day, also on Plavix 75 mg daily. * History of right CEA. * Hypertension * Hyperlipidemia * Chronic back pain * History of breast cancer Plan: * Patient denies any new focal symptoms at this time. Her examination is stable and she continues to have mild focal signs related to her previous stroke with left arm ataxia. * Patient has severe bilateral ICA stenosis right>left, and family has declined surgery or any intervention in the past, numerous times (February 2023 and December 2022). Patient does not want to pursue any surgical intervention for her carotid disease even at this time. * Neurologically clear for discharge on Eliquis 2.5 mg twice a day, Plavix 75 mg daily and Pravachol 40 mg daily. * Other medical management as per IM and cardiology * Thank you for the consult.
--- NOTE | 2023-12-10 21:18 | P.PN ---
Subjective Progress Note Date: 12/10/23 HISTORY OF PRESENT ILLNESS: 88-year-old with active medical history of CVA with left-sided weakness, with mild spinal stenosis, history of cognitive impairment and memory loss, hy perglycemia, mild systolic congestive heart failure, recurrent UTI who was in and out subacute rehab at [facility] few times in the last few weeks last time was 4 debility secondary to lower back pain along with stroke and COPD could not ambulate and walk and that being the hospital for few days and sent to [facility] were spent almost 3 weeks was supposed to go to assisted living apparently the 2 sons will manage her affairs decided to hire extra help and bring her home which patient has been starting again same thing like last time not been able to ambulate and walk not been able to be independent on her own. Apparently last few days has been having rough time using the walker with worsening left upper extremity pain discomfort and weakness she did not remember a mention having any fall lately but sometime just could not grab the walker and walk and could not use the left side become a lot weaker than expected since same side she had a stroke on last time. Workup in the emergency department after arrived by EMS With pulse ox 94 percentile pulse still running slightly below sometimes in the 40s and 50s blood pressure was 105/48. Laboratory value with mild anemia not changed since last time UA was negative and chemistry did not show any acute kidney injury this time. CAT scan of the brain showed no acute intracranial process with old lacunar infarct in the prior infarct mostly in the right thalamic lacunar area and old right frontal parietal infarct as well. Also she has chronic appearing periventricular white matter ischemic change similar to small vessel disease. The patient was admitted to the hospital will require again physical therapy for her debility my conclusion there is no sign of new stroke compared to the last 1 and patient having difficult time walking can be the impact of her arthritis along with the impact of her bradycardia which from few months ago family had declined doing pacer when was needed for severe bradycardia was more symptomatic causing syncope. Will talk to the kids again about the plan whether assisted living is in the resident for them on chest patient need to be treated and expect to return home. 12/09/2023: I have long discussion with the son today who was at the bedside explained to him was going on with his mom review her desk monitor from which showing her pulse rate running in the 30s and 40s the patient is extremely exhausted tired and having more symptoms he is frustrated how many times she get up in the middle of the night use of bathroom and every time there is a high risk for fall she is very restless and night. She promised to think and talk to his brother about possibility of his mom going for pacemaker which in my opinion will help to make the tiredness fatigue and lightheadedness would probably this exhaustion much better as she is quite bradycardic most of the day and significantly at nighttime. Also he promised to think about the possibility of having her doing Jay catheter and go home with Jay catheter for the next 2 months and have a nurse at home try to manage it with the better and prepare for getting her more rest not having to get up many times at night use the bathroom since he believes she is having a lot more polyuria at nighttime. Waiting for cardiology consultation today otherwise and truthfully I do not see any reason for patient to see neurology since there is no finding consistent with any extension of stroke or new stroke at this point continue current finding from previous admission and previous testing for stroke or mini stroke. Mrs. Medrano truthfully still have significant debilitated condition require more help apparently the family have put more effort and help at home since she left [facility] last time but still having more problem and frustrating to her and her family I can manage it and if we can improve the tiredness fatigue and the multi urination at nighttime may be will be again plan for both family and patient. 12/10/2023:Her Holter monitor and telemetry showed her pulse rate has improved slight bit but still running in the 40s and 50s not 30s anymore. Patient also continue to be severely symptomatic with weakness fatigue tiredness and slight left-sided weakness. Request consultation for neurology and cardiology cardiology apparently study although I am not decided no reason for pacemaker required at this point but to pursue this from neurology standpoint or patient was seen and evaluated she is known to have bilateral carotid stenosis worse on the left than the right side and previously discussed the result and try to have patient schedule for further testing if needed. Laboratory value today shows significant drop in hemoglobin to 8.1 from 9.1 knowing that patient is still on anticoagulation probably the stress of body is going through with causing probably stress ulcer. Might require transfusion if she drops further more otherwise continue PPI. REVIEW OF SYSTEMS: CONSTITUTIONAL: Elderly slightly confused in no acute respiratory distress. EYES: No icterus sclerae, no conjunctivitis. EARS, NOSE, MOUTH, THROAT, and FACE: No sore throat, lymphadenopathy, carotid bruits or deformity. RESPIRATORY: No SOB cough or wheezes. CARDIOVASCULAR: No CP, Palpitation, PND, Orthopnea, or angina. Positive arrhythmia. GASTROINTESTINAL: No Abd pain, Nausea or vomiting, no Diarrhea or constipation, No GI Bleed, no distention or masses. GENITOURINARY: Negative for Hematuria or UTI, no kidney stones. INTEGUMENT/BREAST: Negative for any muscular injury with mild osteoarthritis.. Significant back pain. HEMATOLOGIC/LYMPHATIC: Negative for bleed or purpura. Back: Continue to have debilitated discomfort in the lower lumbar area shooting toward the lower extremity specially the right side. MUSCULOSKELTAL: Severe myalgia and arthralgia with slight weakness in the left upper extremity and severe fatigue tiredness of the lower extremities as well. NEURLOGICAL: No LOC, Sz or syncope, blurred vision dizziness or abnormality.. BEHAVIORAL/PSYCH: Negative. ENDOCRINE: Negative. PHYSICAL EXAMINATION: General Appearance: Alert, cooperative, significantly confused no acute respiratory distress. Neck HEENT: Supple, no lymphadenopathy, no thyroid enlargement, no carotid bruits. Lungs: Clear to auscultation without crackles or wheezes no rhonchi, no deformity. Chest Wall: Chest wall normal expansion with deep inspiration no tenderness and no deformity was found on exam, no costochondral pain or discomfort. Heart: Irregular rate and rhythm, S1, S2 normal, no murmur, rub or gallop. Back: Significant discomfort lower back area with significant scoliosis and mild kyphosis with slight tenderness in the lumbar spine. Abdomen: Soft, non-tender, bowel sounds active all four quadrants, no masses, no organomegaly. Extremities: Extremities normal, atraumatic, no cyanosis or edema. Pulses: 2+ and symmetric. Skin: Skin color, texture, tugor normal, no rashes or lesions. Neurologic: Alert significantly confused, cranial nerves II through XII intact, slight generalized weakness in the right side compared to the left side with sev ere abnormal balance and gait. ASSESSMENT AND PLAN: _Possible new stroke affecting the left side making it much weaker, continue to monitor patient carefully there is no new weakness at this point and the same finding from previous stroke has been on without any change. The patient remain on anticoagulation but this is still can be from carotid stenosis _Bilateral carotid stenosis the left than the right close 90 percentile apparently patient and family had declined repeatedly going for surgical intervention. Still on anticoagulation. _Severe bradycardia: Watching patient on desk monitor through the night has been running in the low 40 and sometimes 30 patient was quite bit symptomatic and even the discussion 4-month ago for pacemaker when family declined allowing her to go for it at this point it seems like his family are agreeable to it to some degree his son will talk to his brother and will make their decision by tomorrow. _Altered mental status: Most likely combination of severe bradycardia along with extension of her dementia mostly more than stroke or new stroke. _Dyspnea and shortness of breath: Most likely congestive heart failure systolic dysfunction which patient has been treated for it so far when patient is more bradycardic she become more symptomatic. _History of COPD with no flareup lately remain on updraft treatment and O2. _A-fib with RVR: Pulse rates under control continue Eliquis. _Advanced dementia: Has been on donepezil and Seroquel continue both medication. _Intractable lower back pain with worsening symptom consistent with bulging disc and spinal stenosis she is on medical management only. _Hypertension: Continue amlodipine 10 mg a day avoid beta-noam especially with her bradycardia still on isosorbide and furosemide as well. _Debility: Few of the elements she has including CVA, severe bradycardia, b ilateral stenosis, multi urination and worsening incontinence, severe anemia with active GI bleed all making patient still more sick not stable we will follow her lab for tomorrow cardiology stopping well possibility and need for pacemaker or not as of today that possibility is taking off the table. Objective - Vital Signs Vital signs: Vital Signs Temp 97.6 F 12/10/23 00:00 Pulse 51 L 12/10/23 02:00 Resp 14 12/10/23 02:00 BP 132/68 12/10/23 00:00 Pulse Ox 99 12/10/23 00:00 FiO2 Intake & Output 12/09/23 12/09/23 12/10/23 06:59 18:59 06:59 Intake Total 118 360 Output Total 0 300 Balance 0 118 60 Weight 57 kg 61.5 kg Intake: Oral 118 360 Output: Urine 0 300 Other: Voiding Method Toilet Toilet Bedside Commode Bedside Commode Bedside Commode # Voids 1 - Labs CBC & Chem 7: 12/10/23 06:08 12/10/23 06:08 Labs: Abnormal Lab Results - Last 24 Hours (Table) 12/09/23 12/09/23 Range/Units 06:30 06:30 RBC 3.38 L (3.80-5.40) m/uL Hgb 8.8 L (11.4-16.0) gm/dL Hct 30.2 L (34.0-46.0) % MCHC 29.0 L (31.0-37.0) g/dL RDW 19.6 H (11.5-15.5) % BUN 30 H (7-17) mg/dL Glucose 122 H (74-99) mg/dL Total Protein 5.7 L (6.3-8.2) g/dL Albumin 3.1 L (3.5-5.0) g/dL
[2023-12-10 23:52] LABS: Glucose,Whole Blood 96 mg/dL (70-110)
--- NOTE | 2023-12-11 00:47 | XR ---
EXAM: XR Bilateral Hips With Pelvis When Performed, 4 or More Views CLINICAL HISTORY: ITS.REASON XR Reason: fall TECHNIQUE: Four or more views of the bilateral hips with pelvis when performed. COMPARISON: No relevant prior studies available. FINDINGS: Bones/joints: Diffuse osseous demineralization. Mild-moderate bilateral joint space narrowing. Anterior fusion at L5-S1. No acute fracture or subluxation. Soft tissues: Unremarkable. IMPRESSION: No acute fracture or subluxation.
--- NOTE | 2023-12-11 01:08 | XR ---
EXAM: XR Lumbosacral Spine, 2 or 3 Views CLINICAL HISTORY: ITS.REASON XR Reason: fall TECHNIQUE: Frontal and lateral views of the lumbar spine and sacrum. COMPARISON: No relevant prior studies available. FINDINGS: Vertebrae: Multilevel lumbar spondylosis and disc space narrowing. Anterior fusion at L5-S1. Degenerative endplate changes. No acute fracture. Normal alignment. Sacrum/coccyx: Unremarkable as visualized. No acute fracture. Disc spaces: See above. Soft tissues: Unremarkable. IMPRESSION: No acute findings in the lumbar spine.
[2023-12-11] MEDS: FUROSEMIDE 10 MG/ML 4 ML VIAL IV STA (07:15)
--- NOTE | 2023-12-11 07:56 | XR ---
EXAMINATION TYPE: XR chest 1V DATE OF EXAM: 12/11/2023 7:24 AM CLINICAL INDICATION: Female, 88 years old with history of audible wheezing; history of CHF; [facility] COMPARISON: Chest radiographs from 10/29/2023. TECHNIQUE: XR chest 1V Frontal view of the chest. FINDINGS: Lungs/Pleura: No evidence of focal consolidation or pneumothorax. Blunting of the costophrenic angles is present. Pulmonary vascularity: Pulmonary vascular congestion. Heart/mediastinum: Cardiomediastinal silhouette is enlarged. Musculoskeletal: No acute osseous pathology. Other findings: None Lines/Tubes: IMPRESSION: Cardiomegaly, pulmonary vascular congestion and bilateral pleural effusions. Correlate with BNP for c ongestive heart failure. [facility], , 12/11/2023 7:53 AM
--- NOTE | 2023-12-11 08:56 | XR ---
EXAMINATION TYPE: XR knee complete LT DATE OF EXAM: 12/11/2023 8:51 AM CLINICAL INDICATION: Female, 88 years old with history of fall; [facility] COMPARISON: None. TECHNIQUE: XR knee complete LT; examined in Frontal, lateral and oblique projections. FINDINGS: No evidence of any acute osseous pathology, soft tissue swelling, or joint effusion is no kit. Tricompartmental osteophyte formation involving the femoral condyles, tibial plateau and patella . Severe joint space narrowing worse medially. A fabella is present. IMPRESSION: 1. No acute osseous pathology. 2. End-stage tricompartmental osteoarthritic changes. [facility], , 12/11/2023 8:54 AM
--- NOTE | 2023-12-11 08:57 | XR ---
EXAMINATION TYPE: XR tibia fibula LT DATE OF EXAM: 12/11/2023 8:53 AM CLINICAL INDICATION: Female, 88 years old with history of fall; [facility] COMPARISON: 03/12/2013 TECHNIQUE: XR tibia fibula LT; examined in AP and lateral projections. FINDINGS: No evidence of any acute osseous pathology, joint dislocation, or soft tissue swelling is n oted. Few scattered calcified granulomas in the subcutaneous tissues. Atherosclerosis Degeneration ch anges of the tibiotalar joint. IMPRESSION: No evidence of acute fracture. [facility], , 12/11/2023 8:55 AM
[2023-12-11 09:00] LABS: ALT 15 U/L (4-34); AST 28 U/L (14-36); African American GFR (CKD) >90 (>60 ml/min/1.73 sqM); Albumin 3.1 g/dL (3.5-5.0); Alkaline Phosphatase 71 U/L (38-126); Anion Gap 2 mmol/L; Blood Urea Nitrogen 25 mg/dL (7-17); Calcium 9.1 mg/dL (8.4-10.2); Carbon Dioxide 33 mmol/L (22-30); Chloride 103 mmol/L (98-107); Glucose 105 mg/dL (74-99); Non-African American GFR(CKD) 79 (>60 ml/min/1.73 sqM); Potassium 4.4 mmol/L (3.5-5.1); Sodium 138 mmol/L (137-145); Total Bilirubin 0.6 mg/dL (0.2-1.3); Total Protein 5.5 g/dL (6.3-8.2)
--- NOTE | 2023-12-11 09:00 | CT ---
EXAMINATION TYPE: CT brain wo con DATE OF EXAM: 12/11/2023 COMPARISON: 12/08/2023 HISTORY: AMS CT DLP: 1125.4 mGycm Automated exposure control for dose reduction was used. FINDINGS: Area of low attenuation involving the left cerebellar fossa compatible with remote ischemia small bridgette chnoid cyst is stable. Moderate generalized degenerative change. Small remote lacunar infarct right thalamus and stable remote ischemic change of the right basal gang chandler. Hypoattenuation in the white matter is most typical remote microvascular ischemia. Area of encep halomalacia and remote ischemia involving the right frontal lobe. There is no mass effect or midline shift. Intracranial atherosclerotic changes noted. Craniocervical junction maintained. Assessment for acute hemorrhage along the frontal lobes limited due to artifact. The main portion of the brain parenchyma demonstrates no acute hemorrhage. Orbits are symmetric. Calvarium intact. Sella turcica normal. Craniocervical junction maintained. IMPRESSION: REMOTE ISCHEMIA AND DEGENERATIVE CHANGES. NO ACUTE HEMORRHAGE OR MASS EFFECT. IF THERE IS HIGH CLINIC AL CONCERN FOR ACUTE ISCHEMIA CORRELATE WITH MRI CLINICALLY WARRANTED. [facility], , 12/11/2023 8:57 AM
[2023-12-11 09:25] LABS: Anisocytosis Slight; HCT 30.3 % (34.0-46.0); HGB 9.2 gm/dL (11.4-16.0); Hypochromasia Marked; MCH 26.2 pg (25.0-35.0); MCHC 30.4 g/dL (31.0-37.0); MCV 86.3 fL (80.0-100.0); Mean Platelet Volume 7.5; Microcytosis Slight; Platelet Count 320 k/uL (150-450); RBC 3.51 m/uL (3.80-5.40); WBC 13.2 k/uL (3.8-10.6)
--- NOTE | 2023-12-11 12:15 | P.PN ---
Subjective HISTORY OF PRESENT ILLNESS: This is a 88-year-old female with a past medical history significant for CVA, COPD, dementia, and atrial fibrillation. Patient follows in the office with Dr. Lott. We have been asked to see the patient in consultation for bradycardia. Patient examined at the bedside. Patient is sitting up in the chair. There is no family present at the time of examination. Per patient's nurse, patient presented to the hospital with increasing weakness and concern for CVA. The patient denies having any chest pain or pressure. She denies any shortness of breath. Telemetry this morning reveals sinus mechanism with heart rate in the 60s. Overnight, the patient's heart rates have been in the 50s with dips down into the 40s. No heart block or significant pauses have been noted. The patient currently denies any dizziness or lightheadedness. There have been no reported episodes of syncope. DIAGNOSTICS: - EKG reveals sinus mechanism with nonspecific ST-T wave changes. No signs of acute ischemia. - CT brain: No acute intracranial process. Old lacunar infarct in prior infarct noted. - Laboratory data: WBC 7.8. Hemoglobin 8.1. Platelet count 332. Sodium 140. Potassium 4.4. BUN 31. Creatinine 0.86. Magnesium 2.0. TSH 1.540. - Current home cardiac medications include Eliquis 2.5 mg twice a day, Lipitor 10 mg daily, Plavix 75 mg daily, Lasix 20 mg every 2 days, Imdur 30 mg daily, amlodipine 10 mg daily - Most recent echocardiogram obtained in February 2023 revealing ejection fraction 60 to 65% with mild TR and mild pulmonary pretension - Cardiac catheterization history: January 2019 which was negative for ischemia 12/11/2023 Patient examined this morning the bedside. Patient is somewhat confused at the time of examination. She denies chest pain or pressure. She denies shortness of breath. There is no family present. The patient did have a fall last night. According to nursing documentation, the patient was confused and thought she was at the grocery store. Patient's heart rate is in the 80s at the time of examination. Telemetry reviewed with no significant pauses or heart block not ed. Patient remains on anticoagulation. Hemoglobin stable at 9.2. Echocardiogram completed revealing ejection fraction 60 to 65%, severe pulmonary hypertension, trace MR, mild TR and moderate to severe concentric left ventricular thickness. PHYSICAL EXAM: VITAL SIGNS: Reviewed. GENERAL: Well-developed in no acute distress. HEENT: Head is normocephalic. Pupils are equal, round. Sclerae anicteric. Mucous membranes of the mouth are moist. Neck supple. No JVD or thyromegaly LUNGS: Respirations even and unlabored. Lungs essentially clear to auscultation bilaterally. HEART: Regular rate and rhythm. S1 and S2 heard. ABDOMEN: Soft. Nondistended. Nontender. EXTREMITIES: Normal range of motion. No clubbing or cyanosis. Peripheral pulses intact. No lower extremity edema NEUROLOGIC: Awake and alert. ASSESSMENT: Worsening generalized weakness Asymptomatic bradycardia without episodes of syncope Paroxysmal atrial fibrillation, currently maintaining sinus mechanism History of CVA History of COPD History of dementia Carotid stenosis Severe pulmonary hypertension Status post mechanical fall due to confusion; patient apparently thought she was at the grocery store PLAN: Continue current cardiac medications Continue telemetry monitoring Patient has had bradycardia for several months now. Patient without complaints of dizziness or lightheadedness. No episodes of syncope have been reported. Patient's heart rate is currently in the 80s at the time of examination. She does become bradycardic at night with heart rate into the 40s and 50s. No significant pauses or heart block have been noted. No plans for pacemaker implantation at this time per Dr. Kaylie Lott called patient's son John this morning on the phone and discussed plan of care including no plans for pacemaker implantation. Patient son verbalized understanding and all questions were answered. Further recommendations pending patient course Nurse practitioner note has been reviewed by physician. Signing provider agrees with the documented findings, assessment, and plan of care documented by [employer]NAGEMENT OFFICER as a scribe. Objective - Vital Signs Vital signs: Vital Signs Temp 98.1 F 12/11/23 04:00 Pulse 78 12/11/23 07:30 Resp 20 12/11/23 07:30 BP 124/58 12/11/23 07:30 Pulse Ox 92 L 12/11/23 07:30 FiO2 Intake & Output 12/10/23 12/11/23 12/11/23 18:59 06:59 18:59 Intake Total 80 Output Total 400 425 Balance 80 -400 -425 Weight 61.5 kg Intake: Intake, IV Titration 80 Amount Sodium Chloride 0.9% 1, 80 000 ml @ 20 mls/hr IV . Q24H JARETH Rx#:[id number] Output: Urine 400 425 Other: Voiding Method Bedside Commode Bedside Commode Indwelling Catheter # Voids 4 - Labs CBC & Chem 7: 12/11/23 08:16 12/11/23 08:16 Labs: Abnormal Lab Results - Last 24 Hours (Table) 12/11/23 12/11/23 Range/Units 08:16 08:16 WBC 13.2 H (3.8-10.6) k/uL RBC 3.51 L (3.80-5.40) m/uL Hgb 9.2 L (11.4-16.0) gm/dL Hct 30.3 L (34.0-46.0) % MCHC 30.4 L (31.0-37.0) g/dL RDW 20.0 H (11.5-15.5) % Carbon Dioxide 33 H (22-30) mmol/L BUN 25 H (7-17) mg/dL Glucose 105 H (74-99) mg/dL Total Protein 5.5 L (6.3-8.2) g/dL Albumin 3.1 L (3.5-5.0) g/dL
[2023-12-11] MEDS: FUROSEMIDE 10 MG/ML 2 ML VIAL IV ONE (17:17)
--- NOTE | 2023-12-12 05:56 | P.PN ---
Subjective Progress Note Date: 12/11/23 HISTORY OF PRESENT ILLNESS: 88-year-old with active medical history of CVA with left-sided weakness, with mild spinal stenosis, history of cognitive impairment and memory loss, hy perglycemia, mild systolic congestive heart failure, recurrent UTI who was in and out subacute rehab at [facility] few times in the last few weeks last time was 4 debility secondary to lower back pain along with stroke and COPD could not ambulate and walk and that being the hospital for few days and sent to [facility] were spent almost 3 weeks was supposed to go to assisted living apparently the 2 sons will manage her affairs decided to hire extra help and bring her home which patient has been starting again same thing like last time not been able to ambulate and walk not been able to be independent on her own. Apparently last few days has been having rough time using the walker with worsening left upper extremity pain discomfort and weakness she did not remember a mention having any fall lately but sometime just could not grab the walker and walk and could not use the left side become a lot weaker than expected since same side she had a stroke on last time. Workup in the emergency department after arrived by EMS With pulse ox 94 percentile pulse still running slightly below sometimes in the 40s and 50s blood pressure was 105/48. Laboratory value with mild anemia not changed since last time UA was negative and chemistry did not show any acute kidney injury this time. CAT scan of the brain showed no acute intracranial process with old lacunar infarct in the prior infarct mostly in the right thalamic lacunar area and old right frontal parietal infarct as well. Also she has chronic appearing periventricular white matter ischemic change similar to small vessel disease. The patient was admitted to the hospital will require again physical therapy for her debility my conclusion there is no sign of new stroke compared to the last 1 and patient having difficult time walking can be the impact of her arthritis along with the impact of her bradycardia which from few months ago family had declined doing pacer when was needed for severe bradycardia was more symptomatic causing syncope. Will talk to the kids again about the plan whether assisted living is in the resident for them on chest patient need to be treated and expect to return home. 12/09/2023: I have long discussion with the son today who was at the bedside explained to him was going on with his mom review her monitoring and evaluation advisor from which showing her pulse rate running in the 30s and 40s the patient is extremely exhausted tired and having more symptoms he is frustrated how many times she get up in the middle of the night use of bathroom and every time there is a high risk for fall she is very restless and night. She promised to think and talk to his brother about possibility of his mom going for pacemaker which in my opinion will help to make the tiredness fatigue and lightheadedness would probably this exhaustion much better as she is quite bradycardic most of the day and significantly at nighttime. Also he promised to think about the possibility of having her doing Jay catheter and go home with Jay catheter for the next 2 months and have a nurse at home try to manage it with the better and prepare for getting her more rest not having to get up many times at night use the bathroom since he believes she is having a lot more polyuria at nighttime. Waiting for cardiology consultation today otherwise and truthfully I do not see any reason for patient to see neurology since there is no finding consistent with any extension of stroke or new stroke at this point continue current finding from previous admission and previous testing for stroke or mini stroke. Mrs. Medrano truthfully still have significant debilitated condition require more help apparently the family have put more effort and help at home since she left [facility] last time but still having more problem and frustrating to her and her family I can manage it and if we can improve the tiredness fatigue and the multi urination at nighttime may be will be again plan for both family and patient. 12/10/2023:Her Holter monitor and telemetry showed her pulse rate has improved slight bit but still running in the 40s and 50s not 30s anymore. Patient also continue to be severely symptomatic with weakness fatigue tiredness and slight left-sided weakness. Request consultation for neurology and cardiology cardiology apparently study although I am not decided no reason for pacemaker required at this point but to pursue this from neurology standpoint or patient was seen and evaluated she is known to have bilateral carotid stenosis worse on the left than the right side and previously discussed the result and try to have patient schedule for further testing if needed. Laboratory value today shows significant drop in hemoglobin to 8.1 from 9.1 knowing that patient is still on anticoagulation probably the stress of body is going through with causing probably stress ulcer. Might require transfusion if she drops further more otherwise continue PPI. 12/11/2023: As a big surprise patient had fall this morning with slight trauma she is not acting herself CAT scan of the brain was performed no sign of bleed, also and that explain her left hip and knee along with leg no fracture was found the knee has quite bit bad arthritis at this point. EKG showed nonspecific ST abnormality with no ischemic change. Blood testing still showing normal white blood cell but hemoglobin is down to 8.1 so not quite sure if patient has been going through any active bleed not appear to be visible at this point but to be watched carefully rest of her testing including kidney function and thyroid magnesium were good. She is remain quite bit confused mildly agitated at time but more calm and almost very sleepy most of the time. Apparently despite the severe bradycardia and symptomatic event patient is going to cardiology do not believe she need a pacemaker at this point family been notified by cardiology and no argument about it, initially family were against the idea of pacemaker in the first place but with the current finding with the level of confusion and recurrent symptoms repeatedly besides seeing this bradycardia on heart monitor dipping into this. He not quite sure what cells beside her current dementia and current course of management. Verbalized to the family repeatedly again patient required assisted living versus long-term fdc not such a plan with short-term physical therapy course on the fdc plan because more often patient is not participating in it cannot establish much more than having to put her in a wheelchair and have her to stay in a wheelchair and move in bed. Other option which apparently has been talk about which whether patient is up to the degree having to consider hospice or not which again she had enough comorbi dity but her mortality with management might take longer than 6 months so not quite sure if that make her a good candidate for hospice at this point. Again we will continue to address with the family recurrent concern hoping family come with a conclusion for placement or assisted living. REVIEW OF SYSTEMS: CONSTITUTIONAL: Elderly slightly confused in no acute respiratory distress. EYES: No icterus sclerae, no conjunctivitis. EARS, NOSE, MOUTH, THROAT, and FACE: No sore throat, lymphadenopathy, carotid bruits or deformity. RESPIRATORY: No SOB cough or wheezes. CARDIOVASCULAR: No CP, Palpitation, PND, Orthopnea, or angina. Positive arrhythmia. GASTROINTESTINAL: No Abd pain, Nausea or vomiting, no Diarrhea or constipation, No GI Bleed, no distention or masses. GENITOURINARY: Negative for Hematuria or UTI, no kidney stones. INTEGUMENT/BREAST: Negative for any muscular injury with mild osteoarthritis.. Significant back pain. HEMATOLOGIC/LYMPHATIC: Negative for bleed or purpura. Back: Continue to have debilitated discomfort in the lower lumbar area shooting toward the lower extremity specially the right side. MUSCULOSKELTAL: Severe myalgia and arthralgia with slight weakness in the left upper extremity and severe fatigue tiredness of the lower extremities as well. NEURLOGICAL: No LOC, Sz or syncope, blurred vision dizziness or abnormality.. BEHAVIORAL/PSYCH: Negative. ENDOCRINE: Negative. PHYSICAL EXAMINATION: General Appearance: Alert, cooperative, significantly confused no acute respiratory distress. Neck HEENT: Supple, no lymphadenopathy, no thyroid enlargement, no carotid bruits. Lungs: Clear to auscultation without crackles or wheezes no rhonchi, no deformity. Chest Wall: Chest wall normal expansion with deep inspiration no tenderness and no deformity was found on exam, no costochondral pain or discomfort. Heart: Irregular rate and rhythm, S1, S2 normal, no murmur, rub or gallop. Back: Significant discomfort lower back area with significant scoliosis and mild kyphosis with slight tenderness in the lumbar spine. Abdomen: Soft, non-tender, bowel sounds active all four quadrants, no masses, no organomegaly. Extremities: Extremities normal, atraumatic, no cyanosis or edema. Pulses: 2+ and symmetric. Skin: Skin color, texture, tugor normal, no rashes or lesions. Neurologic: Alert significantly confused, cranial nerves II through XII intact, slight generalized weakness in the right side compared to the left side with severe abnormal balance and gait. ASSESSMENT AND PLAN: _Possible new stroke affecting the left side making it much weaker, continue to monitor patient carefully there is no new weakness at this point and the same finding from previous stroke has been on without any change. Repeat another CAT scan failed to show any major abnormality at this point and no MRI planned to be done. _Bilateral carotid stenosis the left than the right close 90 percentile apparently patient and family had declined repeatedly going for surgical intervention. Still on anticoagulation. _Severe bradycardia: Still been watched on monitoring and evaluation advisor no hypothyroidism no electrolyte imbalance family will notify there were against idea of having pacemaker in the first place with cardiology assured family that pacemaker is not the answer at this point despite his symptomatic bradycardia and still a concern if she is to move on her own how much this will impact her ability. _Fall with mild injury including close head trauma, left hip left knee: All were x-ray did not show any major abnormality. _Altered mental status: Most likely combination of severe bradycardia along with extension of her dementia mostly more than stroke or new stroke. _Dyspnea and shortness of breath: Most likely congestive heart failure systolic dysfunction which patient has been treated for it so far when patient is more bradycardic she become more symptomatic. _History of COPD with no flareup lately remain on updraft treatment and O2. _A-fib with RVR: Pulse rates under control continue Eliquis. _Advanced dementia: Remain on donepezil and Seroquel I believe adding Namenda might have little bit more calming effect even patient still seen neurology but will add Namenda at 5 mg daily started today. _Intractable lower back pain with worsening symptom consistent with bulging disc and spinal stenosis she is on medical management only. _Hypertension: Continue amlodipine 10 mg a day avoid beta-noam especially with her bradycardia still on isosorbide and furosemide as well. _Debility: All x-ray after fall were done, review her lab, not able to participate much physical therapy, still addressed with the family the longer- term plan which is a placement versus assisted living versus 18/09 home care. Objective - Vital Signs Vital signs: Vital Signs Temp 98.1 F 12/11/23 04:00 Pulse 90 12/11/23 04:00 Resp 20 12/11/23 04:00 BP 178/71 12/11/23 04:00 Pulse Ox 94 L 12/11/23 04:00 FiO2 Intake & Output 12/10/23 12/10/23 12/11/23 06:59 18:59 06:59 Intake Total 360 80 Output Total 300 400 Balance 60 80 -400 Weight 61.5 kg 61.5 kg Intake: Intake, IV Titration 80 Amount Sodium Chloride 0.9% 1, 80 000 ml @ 20 mls/hr IV . Q24H JARETH Rx#:[id number] Oral 360 Output: Urine 300 400 Other: Voiding Method Bedside Commode Bedside Commode Bedside Commode # Voids 1 4 - Labs CBC & Chem 7: 12/11/23 08:16 12/11/23 08:16 Labs: Abnormal Lab Results - Last 24 Hours (Table) 12/10/23 12/10/23 Range/Units 06:08 06:08 RBC 3.09 L (3.80-5.40) m/uL Hgb 8.1 L (11.4-16.0) gm/dL Hct 27.4 L (34.0-46.0) % MCHC 29.5 L (31.0-37.0) g/dL RDW 19.8 H (11.5-15.5) % Carbon Dioxide 32 H (22-30) mmol/L BUN 31 H (7-17) mg/dL Total Protein 5.5 L (6.3-8.2) g/dL Albumin 3.1 L (3.5-5.0) g/dL
--- NOTE | 2023-12-12 06:59 | P.CNPUL ---
History of Present Illness Consult date: 12/12/23 Requesting physician: Tacos Saha Reason for consult: other (PVC, possible small trace pleural effusions) Chief complaint: Back pain History of present illness: Patient is an 88-year-old -[place] female with past medical history significant for CVA/TIA with left-sided residual, hypertension, hyperlipidemia, atrial fibrillation anticoagulated on Eliquis, heart failure, COPD, chronic hyp oxemic respiratory failure on 2 L/min nasal cannula 18/09, former smoker, among other things. She is currently being evaluated on the cardiac stepdown unit. She is drowsy and a very poor historian. She has no complaints at the moment. She does know that she is in the hospital, but is unsure of why. Patient actually admitted back on 12/08/2023 with the chief complaint of lower back pain and difficulties ambulating. She did have a mechanical fall yesterday while inpatient. She is anticoagulated on Eliquis for history of atrial fibrillation. CT of the brain did not show any acute hemorrhage or mass effect. Remote ischemia and degenerative changes. Pulmonary was consulted as the patient has had increased oxygen demands. Currently no respiratory distress. Nontachypneic. No obvious coughing. No audible wheezing. Chest x-ray showing cardiomegaly with pulmonary vascular congestion, and blunting of the left costophrenic angle. Transthoracic echocardiogram done this admission showing a left ventricular ejection fraction estimated at 60 to 65% as well as moderate to severe concent haley LVH. RVSP 72. Patient is currently drowsy but not in any acute distress. She is on 4 L/min nasal cannula. SpO2 reading 97%. Heart rate 94 bpm. Telemetry monitoring showing atrial flutter 3-1. Noted to be bradycardic earlier in her hospitalization. Blood pressure normotensive. Afebrile. CBC: WBC count 13.2, hemoglobin 9.2, hematocrit 30.3, platelets 320. CMP: Sodium 138, potassium 4.4, chloride 103, serum bicarb 33, BUN 25, creatinine 0.67, glucose 105. LFTs unremarkable. Urinalysis unremarkable for infection. Hemodynamics are stable at this time. Review of Systems ROS unobtainable: due to mental status Past Medical History Past Medical History: Cancer, Chest Pain / Angina, Heart Failure, COPD, CVA/TIA, Dementia, Deep Vein Thrombosis (DVT), Hyperlipidemia, Hypertension, Osteoarthritis (OA), Pneumonia Additional Past Medical History / Comment(s): CVA X2- LEFT SIDE WEAKNESS-uses a walker,, emphysema; hypoglycemia, hx breast cancer, History of Any Multi-Drug Resistant Organisms: None Reported Past Surgical History: Back Surgery, Breast Surgery, Cholecystectomy, Heart Catheterization Additional Past Surgical History / Comment(s): L SUBCLAVIAN ARTERY BYPASS, Rt CAROTID ENDARTECTOMY, rt breast lumpectomy Past Anesthesia/Blood Transfusion Reactions: No Reported Reaction Additional Past Anesthesia/Blood Transfusion Reaction / Comment(s): . Past Psychological History: Anxiety Additional Psychological History / Comment(s): . Smoking Status: Former smoker Past Alcohol Use History: None Reported Additional Past Alcohol Use History / Comment(s): 1 PPD STARTED SMOKING AT AGE 15 QUIT IN 1984 SMOKED 1PPD Past Drug Use History: None Reported - Past Family History Brother(s) Family Medical History: Cancer Sister(s) Family Medical History: Cancer Mother Additional Family Medical History / Comment(s): enlarged heart Medications and Allergies Home Medications Medication Instructions Recorded Confirmed Type Pantoprazole [Protonix] 40 mg PO DAILY 04/11/18 12/08/23 History Albuterol Inhaler [Ventolin Hfa 2 puff INHALATION RT-Q6H PRN 04/29/22 12/08/23 History Inhaler] Apixaban [Eliquis] 2.5 mg PO BID 04/29/22 12/08/23 History DULoxetine HCL [Cymbalta] 30 mg PO DAILY 04/29/22 12/08/23 History Furosemide [Lasix] 20 mg PO Q48H 04/29/22 12/08/23 History Isosorbide Mononitrate ER [Imdur] 30 mg PO DAILY 04/29/22 12/08/23 History Cholecalciferol [Vitamin D3 (25 25 mcg PO DAILY 09/30/22 12/08/23 History Mcg = 1000 Iu)] Ascorbic Acid [Vitamin C] 500 mg PO DAILY 10/27/22 12/08/23 History Clopidogrel [Plavix] 75 mg PO DAILY 30 Days #30 tab 12/28/22 12/08/23 Rx Atorvastatin [Lipitor] 10 mg PO DAILY 03/04/23 12/08/23 History Ferrous Sulfate [Iron (65 MG 325 mg PO DAILY 03/04/23 12/08/23 History Elemental)] QUEtiapine [SEROquel] 37.5 mg PO HS 08/01/23 12/08/23 History amLODIPine [Norvasc] 10 mg PO DAILY 09/05/23 12/08/23 History Acetaminophen Tab [Tylenol] 325 mg PO Q6H PRN 10/29/23 12/08/23 History Donepezil [Aricept] 10 mg PO HS 10/29/23 12/08/23 History Melatonin 5 mg PO HS 10/29/23 12/08/23 History Acetaminophen-Codeine 300-30mg 1 tab PO Q6H PRN 3 Days #12 tablet 11/02/23 12/08/23 Rx [Tylenol w/codeine #3] Allergies Allergy/AdvReac Type Severity Reaction Status Date / Time No Known Allergies Allergy Verified 12/08/23 20:15 Physical Exam Vitals: Vital Signs Temp Pulse Resp BP Pulse Ox 12/12/23 04:00 94 18 175/72 97 12/12/23 02:00 76 16 12/12/23 00:00 98.4 F 76 16 124/67 97 12/11/23 20:00 64 16 12/11/23 19:48 98.5 F 64 16 144/61 90 L 12/11/23 16:00 101 H 162/77 97 12/11/23 14:00 80 20 12/11/23 12:00 80 145/67 97 12/11/23 09:30 60 130/56 97 12/11/23 07:30 78 20 124/58 92 L Intake and Output 12/11/23 12/11/23 12/12/23 14:59 22:59 06:59 Intake Total 540 Output Total 425 1900 800 Balance -425 -1900 -260 Intake: Oral 540 Output: Urine 425 1900 800 Other: Voiding Method Indwelling Catheter Indwelling Catheter Indwelling Catheter # Bowel Movements 1 GENERAL EXAM: Drowsy, 88-year-old female, oriented to person and place, fairly comfortable in no apparent distress. HEAD: Normocephalic and atraumatic EYES: Normal reaction of pupils, equal size. NOSE: Clear with pink turbinates. THROAT: No erythema or exudates. NECK: No masses, no JVD. CHEST: No chest wall deformity. LUNGS: Equal air entry with no crackles, wheeze, rhonchi or dullness. On 4 L/min nasal cannula. No conversational dyspnea or accessory muscle use while at rest CVS: S1 and S2 normal with no audible murmur, regular rhythm. No extra heart sounds ABDOMEN: No hepatosplenomegaly, active bowel sounds, no guarding or rigidity. SPINE: No scoliosis or deformity SKIN: No rashes CENTRAL NERVOUS SYSTEM: No focal deficits, tone is normal in all 4 extremities. EXTREMITIES: There is no peripheral edema, clubbing, or cyanosis. Peripheral pulses are intact. Results - Laboratory Findings CBC and BMP: 12/11/23 08:16 12/11/23 08:16 Abnormal lab findings: Abnormal Labs 12/08/23 12/08/23 12/08/23 13:47 15:58 15:58 WBC RBC 3.46 L Hgb 9.1 L Hct 30.4 L MCHC 29.9 L RDW 19.9 H Lymphocytes # 0.9 L Chloride 108 H Carbon Dioxide BUN 23 H Glucose Total Protein 6.2 L Albumin Urine Protein Trace H 12/09/23 12/09/23 12/10/23 06:30 06:30 06:08 WBC RBC 3.38 L 3.09 L Hgb 8.8 L 8.1 L Hct 30.2 L 27.4 L MCHC 29.0 L 29.5 L RDW 19.6 H 19.8 H Lymphocytes # Chloride Carbon Dioxide BUN 30 H Glucose 122 H Total Protein 5.7 L Albumin 3.1 L Urine Protein 12/10/23 12/11/23 12/11/23 06:08 08:16 08:16 WBC 13.2 H RBC 3.51 L Hgb 9.2 L Hct 30.3 L MCHC 30.4 L RDW 20.0 H Lymphocytes # Chloride Carbon Dioxide 32 H 33 H BUN 31 H 25 H Glucose 105 H Total Protein 5.5 L 5.5 L Albumin 3.1 L 3.1 L Urine Protein Assessment and Plan Assessment: Acute on chronic hypoxemic respiratory failure, possibly secondary to an exacerbation of diastolic heart failure. Chest x-ray showing cardiomegaly, pu lmonary vascular congestion and blunting of the left costophrenic angle Chronic obstructive pulmonary disease, appears stable Chronic hypoxemic respiratory failure, normally maintained on 2 L/min nasal cannula while at home Acute leukocytosis Mechanical fall Anemia, without acute blood loss noted while inpatient History of CVA, with left-sided residual weakness Bilateral carotid artery stenosis, with greater than 90% stenosis in the proximal right ICA and at least 70% stenosis of the left proximal ICA Abdominal aortic aneurysm, 5.4 x 5 cm infrarenal large abdominal aortic aneurysm with extension to the right iliac artery, being monitored by vascular surgery History of advanced dementia History of breast cancer History of hypertension History of hyperlipidemia History of paroxysmal atrial fibrillation, anticoagulated on Eliquis Multiple medical debilities Plan: Patient's medications, labs, chest x-ray reviewed Continue supplemental oxygen and wean FiO2 to maintain oxygen saturation of 90% or greater Would recommend continuing Lasix Continue bronchodilators [id number] COPD does not appear to be active on my evaluation Check Cepheid 4 Plex We will continue to follow, additional recommendations to come I have personally seen and examined the patient, performed the documentation and the assessment and plan as written. Number of minutes spent on the visit:20 This is a joint evaluation done with the X RAY PHYSICIAN, and this was done in > 30 min. The patient was seen and evaluated. The patient is chronically debilitated and she has become progressively more debilitated and deconditioned in addition to above mentioned comorbidities. Agree on the current plan. No other adjustments were done. Awaiting the viral screen.Continue the bronchodilators and the patient is already on DuoNeb. IV fluids currently at 20 cc an hour. Continue oral Lasix 20 mg every other day. Anticoagulation with Eliquis. Cardiology evaluation. Adequate swallow. No risk for aspiration at this point in time. Mobility is limited. Will follow Time with Patient: Greater than 30
[2023-12-12] MEDS: FUROSEMIDE 10 MG/ML 4 ML VIAL IV STA (08:03)
[2023-12-12] MEDS: MEMANTINE 5 MG TAB PO SCH (08:03)
[2023-12-12] MEDS: IPRATROPIUM-ALBUTEROL 3 ML NEB INHALATION SCH (08:39)
--- NOTE | 2023-12-12 10:18 | P.PN ---
Subjective Progress Note Date: 12/11/23 Patient was seen for a follow-up. 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 As per nursing report: "staff heard pt yelling. when staff walked in, pt was found to be on the ground on her back with her head against the sofa. pt is confused and stated she was returning from the grocery store. post fall pt complaining of left hip pain. Son Oleg notified of his mother falling. Dr. Saha notified and ordered pelvic,hip,lumbar XRs. per report not fracture noted on XRs". CT head revealed remote ischemia and degenerative changes. No acute hemorrhage or mass effect. I personally reviewed CT head, agree with the findings. Knee x-ray showed no acute osseous pathology. End-stage tricompartmental osteoarthritic changes. X-ray of the tibia-fibula was negative for fracture. Objective - Vital Signs Vital signs: Vital Signs Temp 98.1 F 12/11/23 04:00 Pulse 101 H 12/11/23 16:00 Resp 20 12/11/23 14:00 BP 162/77 12/11/23 16:00 Pulse Ox 97 12/11/23 16:00 FiO2 Intake & Output 12/10/23 12/11/23 12/11/23 18:59 06:59 18:59 Intake Total 80 Output Total 400 2325 Balance 80 -400 -2325 Weight 61.5 kg Intake: Intake, IV Titration 80 Amount Sodium Chloride 0.9% 1, 80 000 ml @ 20 mls/hr IV . Q24H [facility] Rx#:[id number] Output: Urine 400 2325 Other: Voiding Method Bedside Commode Bedside Commode Indwelling Catheter # Voids 4 - Exam Patient at present is laying in the bed, patient was sleeping. Woke her up. She offers no complaints. No headaches. Detailed examination deferred, because patient was somnolent. Per's nursing report, she has just woke up. - Labs CBC & Chem 7: 12/11/23 08:16 12/11/23 08:16 Labs: Abnormal Lab Results - Last 24 Hours (Table) 12/11/23 12/11/23 Range/Units 08:16 08:16 WBC 13.2 H (3.8-10.6) k/uL RBC 3.51 L (3.80-5.40) m/uL Hgb 9.2 L (11.4-16.0) gm/dL Hct 30.3 L (34.0-46.0) % MCHC 30.4 L (31.0-37.0) g/dL RDW 20.0 H (11.5-15.5) % Carbon Dioxide 33 H (22-30) mmol/L BUN 25 H (7-17) mg/dL Glucose 105 H (74-99) mg/dL Total Protein 5.5 L (6.3-8.2) g/dL Albumin 3.1 L (3.5-5.0) g/dL Assessment and Plan Assessment: * No evidence of stroke or TIA at this time. Patient denies any focal symptoms. Patient's examination is stable as compared to the last admission. Patient does have bilateral severe ICA stenosis, but family has declined any int ervention during the admission in December 2022. 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 Proximal left ICA stenosis, 70% secondary to calcified plaque. * Atrial fibrillation on anticoagulation with Eliquis 2.5 mg twice a day, also on Plavix 75 mg daily. * History of right CEA. * Hypertension * Hyperlipidemia * Chronic back pain * History of breast cancer * Status post fall early this morning, with no acute change. Plan: * Patient denies any new focal symptoms at this time. Her examination is stable and she continues to have mild focal signs related to her previous stroke with left arm ataxia. * Patient has severe bilateral ICA stenosis right>left, and family has declined surgery or any intervention in the past, numerous times (February 2023 and Dec). Patient does not want to pursue any surgical intervention for her carotid disease even at this time. * 2D echo revealed LVEF 60 to 65%. Moderate to severe LV wall thickness. No obvious regional wall motion abnormalities. Moderately increased left atrial volume. No significant valvular abnormalities. * Neurologically clear for discharge on Eliquis 2.5 mg twice a day, Plavix 75 mg daily and Pravachol 40 mg daily. * Patient has asymptomatic bradycardia, paroxysmal atrial fibrillation. Cardiology do not intend to place pacemaker. * Other medical management as per IM and cardiology
--- NOTE | 2023-12-12 11:32 | P.PN ---
Subjective HISTORY OF PRESENT ILLNESS: This is a 88-year-old female with a past medical history significant for CVA, COPD, dementia, and atrial fibrillation. Patient follows in the office with Dr. Lott. We have been asked to see the patient in consultation for bradycardia. Patient examined at the bedside. Patient is sitting up in the chair. There is no family present at the time of examination. Per patient's nurse, patient presented to the hospital with increasing weakness and concern for CVA. The patient denies having any chest pain or pressure. She denies any shortness of breath. Telemetry this morning reveals sinus mechanism with heart rate in the 60s. Overnight, the patient's heart rates have been in the 50s with dips down into the 40s. No heart block or significant pauses have been noted. The patient currently denies any dizziness or lightheadedness. There have been no reported episodes of syncope. DIAGNOSTICS: - EKG reveals sinus mechanism with nonspecific ST-T wave changes. No signs of acute ischemia. - CT brain: No acute intracranial process. Old lacunar infarct in prior infarct noted. - Laboratory data: WBC 7.8. Hemoglobin 8.1. Platelet count 332. Sodium 140. Potassium 4.4. BUN 31. Creatinine 0.86. Magnesium 2.0. TSH 1.540. - Current home cardiac medications include Eliquis 2.5 mg twice a day, Lipitor 10 mg daily, Plavix 75 mg daily, Lasix 20 mg every 2 days, Imdur 30 mg daily, amlodipine 10 mg daily - Most recent echocardiogram obtained in February 2023 revealing ejection fraction 60 to 65% with mild TR and mild pulmonary pretension - Cardiac catheterization history: January 2019 which was negative for ischemia 12/11/2023 Patient examined this morning the bedside. Patient is somewhat confused at the time of examination. She denies chest pain or pressure. She denies shortness of breath. There is no family present. The patient did have a fall last night. According to nursing documentation, the patient was confused and thought she was at the grocery store. Patient's heart rate is in the 80s at the time of examination. Telemetry reviewed with no significant pauses or heart block not ed. Patient remains on anticoagulation. Hemoglobin stable at 9.2. Echocardiogram completed revealing ejection fraction 60 to 65%, severe pulmonary hypertension, trace MR, mild TR and moderate to severe concentric left ventricular thickness. December 12 2023 Patient examined this morning the bedside. Patient currently denies chest pain or pressure. She denies shortness of breath. Telemetry reveals sinus mechanism with heart rate in the 80s. She continues to complain of pain in her hip from her fall yesterday. PHYSICAL EXAM: VITAL SIGNS: Reviewed. GENERAL: Well-developed in no acute distress. HEENT: Head is normocephalic. Pupils are equal, round. Sclerae anicteric. Mucous membranes of the mouth are moist. Neck supple. No JVD or thyromegaly LUNGS: Respirations even and unlabored. Lungs essentially clear to auscultation bilaterally. HEART: Regular rate and rhythm. S1 and S2 heard. ABDOMEN: Soft. Nondistended. Nontender. EXTREMITIES: Normal range of motion. No clubbing or cyanosis. Peripheral pulses intact. No lower extremity edema NEUROLOGIC: Awake and alert. ASSESSMENT: Worsening generalized weakness Asymptomatic bradycardia without episodes of syncope Paroxysmal atrial fibrillation, currently maintaining sinus mechanism History of CVA History of COPD History of dementia Carotid stenosis Severe pulmonary hypertension Status post mechanical fall due to confusion; patient apparently thought she was at the grocery store PLAN: Continue current cardiac medications Continue telemetry monitoring Patient has had bradycardia for several months now. Patient without complaints of dizziness or lightheadedness. No episodes of syncope have been reported. Patient's heart rate is currently in the 80s at the time of examination. She does become bradycardic at night with heart rate into the 40s and 50s. No significant pauses or heart block have been noted. No plans for pacemaker implantation at this time per Dr. Kaylie Lott called patient's son John yesterday on the phone and discussed plan of care including no plans for pacemaker implantation. Patient son verbalized understanding and all questions were answered. Further recommendations pending patient course Nurse practitioner note has been reviewed by physician. Signing provider agrees with the documented findings, assessment, and plan of care documented by WEB PRESS OPERATOR ASSISTANT as a scribe. Objective - Vital Signs Vital signs: Vital Signs Temp 98.5 F 12/12/23 08:00 Pulse 80 12/12/23 08:55 Resp 18 12/12/23 08:00 BP 118/58 12/12/23 08:00 Pulse Ox 94 L 12/12/23 08:51 FiO2 Intake & Output 12/11/23 12/12/23 12/12/23 18:59 06:59 18:59 Intake Total 540 10 Output Total 2325 800 Balance -2325 -260 10 Intake: IV 10 Invasive Line 2 10 Oral 540 0 Output: Urine 2325 800 Other: Voiding Method Indwelling Catheter Indwelling Catheter Indwelling Catheter # Bowel Movements 1 - Labs CBC & Chem 7: 12/11/23 08:16 12/11/23 08:16
--- NOTE | 2023-12-13 06:12 | P.PN ---
Subjective Progress Note Date: 12/12/23 HISTORY OF PRESENT ILLNESS: 88-year-old with active medical history of CVA with left-sided weakness, with mild spinal stenosis, history of cognitive impairment and memory loss, hy perglycemia, mild systolic congestive heart failure, recurrent UTI who was in and out subacute rehab at [facility] few times in the last few weeks last time was 4 debility secondary to lower back pain along with stroke and COPD could not ambulate and walk and that being the hospital for few days and sent to [facility] were spent almost 3 weeks was supposed to go to assisted living apparently the 2 sons will manage her affairs decided to hire extra help and bring her home which patient has been starting again same thing like last time not been able to ambulate and walk not been able to be independent on her own. Apparently last few days has been having rough time using the walker with worsening left upper extremity pain discomfort and weakness she did not remember a mention having any fall lately but sometime just could not grab the walker and walk and could not use the left side become a lot weaker than expected since same side she had a stroke on last time. Workup in the emergency department after arrived by EMS With pulse ox 94 percentile pulse still running slightly below sometimes in the 40s and 50s blood pressure was 105/48. Laboratory value with mild anemia not changed since last time UA was negative and chemistry did not show any acute kidney injury this time. CAT scan of the brain showed no acute intracranial process with old lacunar infarct in the prior infarct mostly in the right thalamic lacunar area and old right frontal parietal infarct as well. Also she has chronic appearing periventricular white matter ischemic change similar to small vessel disease. The patient was admitted to the hospital will require again physical therapy for her debility my conclusion there is no sign of new stroke compared to the last 1 and patient having difficult time walking can be the impact of her arthritis along with the impact of her bradycardia which from few months ago family had declined doing pacer when was needed for severe bradycardia was more symptomatic causing syncope. Will talk to the kids again about the plan whether assisted living is in the resident for them on chest patient need to be treated and expect to return home. 12/09/2023: I have long discussion with the son today who was at the bedside explained to him was going on with his mom review her monitor car operator from which showing her pulse rate running in the 30s and 40s the patient is extremely exhausted tired and having more symptoms he is frustrated how many times she get up in the middle of the night use of bathroom and every time there is a high risk for fall she is very restless and night. She promised to think and talk to his brother about possibility of his mom going for pacemaker which in my opinion will help to make the tiredness fatigue and lightheadedness would probably this exhaustion much better as she is quite bradycardic most of the day and significantly at nighttime. Also he promised to think about the possibility of having her doing Jay catheter and go home with Jay catheter for the next 2 months and have a nurse at home try to manage it with the better and prepare for getting her more rest not having to get up many times at night use the bathroom since he believes she is having a lot more polyuria at nighttime. Waiting for cardiology consultation today otherwise and truthfully I do not see any reason for patient to see neurology since there is no finding consistent with any extension of stroke or new stroke at this point continue current finding from previous admission and previous testing for stroke or mini stroke. Mrs. Medrano truthfully still have significant debilitated condition require more help apparently the family have put more effort and help at home since she left [facility] last time but still having more problem and frustrating to her and her family I can manage it and if we can improve the tiredness fatigue and the multi urination at nighttime may be will be again plan for both family and patient. 12/10/2023:Her Holter monitor and telemetry showed her pulse rate has improved slight bit but still running in the 40s and 50s not 30s anymore. Patient also continue to be severely symptomatic with weakness fatigue tiredness and slight left-sided weakness. Request consultation for neurology and cardiology cardiology apparently study although I am not decided no reason for pacemaker required at this point but to pursue this from neurology standpoint or patient was seen and evaluated she is known to have bilateral carotid stenosis worse on the left than the right side and previously discussed the result and try to have patient schedule for further testing if needed. Laboratory value today shows significant drop in hemoglobin to 8.1 from 9.1 knowing that patient is still on anticoagulation probably the stress of body is going through with causing probably stress ulcer. Might require transfusion if she drops further more otherwise continue PPI. 12/11/2023: As a big surprise patient had fall this morning with slight trauma she is not acting herself CAT scan of the brain was performed no sign of bleed, also and that explain her left hip and knee along with leg no fracture was found the knee has quite bit bad arthritis at this point. EKG showed nonspecific ST abnormality with no ischemic change. Blood testing still showing normal white blood cell but hemoglobin is down to 8.1 so not quite sure if patient has been going through any active bleed not appear to be visible at this point but to be watched carefully rest of her testing including kidney function and thyroid magnesium were good. She is remain quite bit confused mildly agitated at time but more calm and almost very sleepy most of the time. Apparently despite the severe bradycardia and symptomatic event patient is going to cardiology do not believe she need a pacemaker at this point family been notified by cardiology and no argument about it, initially family were against the idea of pacemaker in the first place but with the current finding with the level of confusion and recurrent symptoms repeatedly besides seeing this bradycardia on heart monitor dipping into this. He not quite sure what cells beside her current dementia and current course of management. Verbalized to the family repeatedly again patient required assisted living versus long-term shelter not such a plan with short-term physical therapy course on the shelter plan because more often patient is not participating in it cannot establish much more than having to put her in a wheelchair and have her to stay in a wheelchair and move in bed. Other option which apparently has been talk about which whether patient is up to the degree having to consider hospice or not which again she had enough comorbi dity but her mortality with management might take longer than 6 months so not quite sure if that make her a good candidate for hospice at this point. Again we will continue to address with the family recurrent concern hoping family come with a conclusion for placement or assisted living. 12/12/2023: Since the fall all x-ray came back negative for any fracture brain CAT scan did not show any change. Patient mobility still significantly decreased her pulse oximetry become down quite but she is required 4 L of oxygen to keep her pulse ox in the 90s. Hemoglobin dropped down early but have improved afterward all other testing done have been good pulse has improved in the 60s and 70s with her EKG up to 80s at this point. The patient is still quite bit confused her dementia is much worse than before and she is not combative not having any behavioral problem lately. Reviewed testing again with a veterinary hospital attendant including her echocardiogram continue to show well-preserved ejection fraction with ejection fraction 60-65 percentile seem that patient had severe pulmonary hypertension as well with mild tricuspid regurgitation with no pericardial effusion. No major change with cardiology management still been treated for diastolic congestive heart failure as well which patient remain on furosemide 20, isosorbide 30 continue amlodipine 10 mg vitamin D and her blood pressure below 140 systolic. Family apparently not interested of doing any further management patient is going to return home with more help including visiting nurse and extra help. REVIEW OF SYSTEMS: CONSTITUTIONAL: Elderly slightly confused in no acute respiratory distress. EYES: No icterus sclerae, no conjunctivitis. EARS, NOSE, MOUTH, THROAT, and FACE: No sore throat, lymphadenopathy, carotid bruits or deformity. RESPIRATORY: No SOB cough or wheezes. CARDIOVASCULAR: No CP, Palpitation, PND, Orthopnea, or angina. Positive arrhythmia. GASTROINTESTINAL: No Abd pain, Nausea or vomiting, no Diarrhea or constipation, No GI Bleed, no distention or masses. GENITOURINARY: Negative for Hematuria or UTI, no kidney stones. INTEGUMENT/BREAST: Negative for any muscular injury with mild osteoarthritis.. Significant back pain. HEMATOLOGIC/LYMPHATIC: Negative for bleed or purpura. Back: Continue to have debilitated discomfort in the lower lumbar area shooting toward the lower extremity specially the right side. MUSCULOSKELTAL: Severe myalgia and arthralgia with slight weakness in the left upper extremity and severe fatigue tiredness of the lower extremities as well. NEURLOGICAL: No LOC, Sz or syncope, blurred vision dizziness or abnormality.. BEHAVIORAL/PSYCH: Negative. ENDOCRINE: Negative. PHYSICAL EXAMINATION: General Appearance: Alert, cooperative, significantly confused no acute respiratory distress. Neck HEENT: Supple, no lymphadenopathy, no thyroid enlargement, no carotid bruits. Lungs: Clear to auscultation without crackles or wheezes no rhonchi, no deformity. Chest Wall: Chest wall normal expansion with deep inspiration no tenderness and no deformity was found on exam, no costochondral pain or discomfort. Heart: Irregular rate and rhythm, S1, S2 normal, no murmur, rub or gallop. Back: Significant discomfort lower back area with significant scoliosis and mild kyphosis with slight tenderness in the lumbar spine. Abdomen: Soft, non-tender, bowel sounds active all four quadrants, no masses, no organomegaly. Extremities: Extremities normal, atraumatic, no cyanosis or edema. Pulses: 2+ and symmetric. Skin: Skin color, texture, tugor normal, no rashes or lesions. Neurologic: Alert significantly confused, cranial nerves II through XII intact, slight generalized weakness in the right side compared to the left side with severe abnormal balance and gait. ASSESSMENT AND PLAN: _Possible new stroke affecting the left side making it much weaker, with the exception of a change in mental status and worsening confusion patient physical mobility and ability remain the same at this point. _Bilateral carotid stenosis the left than the right close 90 percentile apparently patient and family had declined repeatedly going for surgical intervention. Still on anticoagulation. _Severe bradycardia: Still been watched on monitor car operator no hypothyroidism no electrolyte imbalance family will notify there were against idea of having pacemaker in the first place with cardiology assured family that pacemaker is not the answer at this point despite his symptomatic bradycardia and still a concern if she is to move on her own how much this will impact her ability. _Diastolic congestive heart failure: With worsening symptoms consistent with shortness of breath, hypoxia and arrhythmia, still on medical management only keep watching her fluid overload and urine output. _Severe pulmonary hypertension with pulmonary pressure of 72 mmHg again continue to be treated with diuretics along with calcium channel noam and nitro. _Fall with mild injury including close head trauma, left hip left knee: All were x-ray did not show any major abnormality. _Altered mental status: Most likely combination of severe bradycardia along with extension of her dementia mostly more than stroke or new stroke. _Dyspnea and shortness of breath: Most likely congestive heart failure systolic dysfunction which patient has been treated for it so far when patient is more bradycardic she become more symptomatic. _History of COPD with no flareup lately remain on updraft treatment and O2. _A-fib with RVR: Pulse rates under control continue Eliquis. _Advanced dementia: Remain on donepezil and Seroquel I believe adding Namenda might have little bit more calming effect even patient still seen neurology but will add Namenda at 5 mg daily started today. _Intractable lower back pain with worsening symptom consistent with bulging disc and spinal stenosis she is on medical management only. _Hypertension: Continue amlodipine 10 mg a day avoid beta-noam especially with her bradycardia still on isosorbide and furosemide as well. _Debility: Her ability physically to do anything is extremely limited patient is bedridden not able to ambulate or do any activity even explaining to the childr en this is probably will become worse over time still insists on going home and the son still elaborate on her activity as she is able to roll herself with a wheeled walker which patient is not able currently will continue to try to do physical therapy and again contact the family for further talk and even with all the change in going patient might be a candidate to do hospice may be at home. Objective - Vital Signs Vital signs: Vital Signs Temp 98.4 F 12/12/23 00:00 Pulse 94 12/12/23 04:00 Resp 18 12/12/23 04:00 BP 175/72 12/12/23 04:00 Pulse Ox 97 12/12/23 04:00 FiO2 Intake & Output 12/11/23 12/11/23 12/12/23 06:59 18:59 06:59 Intake Total 540 Output Total 400 2325 800 Balance -667 -1474 -406 Weight 61.5 kg Intake: Oral 540 Output: Urine 400 2325 800 Other: Voiding Method Bedside Commode Indwelling Catheter Indwelling Catheter # Voids 4 # Bowel Movements 1 - Labs CBC & Chem 7: 12/11/23 08:16 12/11/23 08:16 Labs: Abnormal Lab Results - Last 24 Hours (Table) 12/11/23 12/11/23 Range/Units 08:16 08:16 WBC 13.2 H (3.8-10.6) k/uL RBC 3.51 L (3.80-5.40) m/uL Hgb 9.2 L (11.4-16.0) gm/dL Hct 30.3 L (34.0-46.0) % MCHC 30.4 L (31.0-37.0) g/dL RDW 20.0 H (11.5-15.5) % Carbon Dioxide 33 H (22-30) mmol/L BUN 25 H (7-17) mg/dL Glucose 105 H (74-99) mg/dL Total Protein 5.5 L (6.3-8.2) g/dL Albumin 3.1 L (3.5-5.0) g/dL
--- NOTE | 2023-12-13 10:23 | XR ---
EXAMINATION TYPE: XR chest 1V portable DATE OF EXAM: 12/13/2023 10:18 AM CLINICAL INDICATION: Female, 88 years old with history of aspiration; [facility] COMPARISON: Chest radiographs from 12/11/2023 TECHNIQUE: XR chest 1V portable Frontal view of the chest. FINDINGS: Lungs/Pleura: There is no evidence of pleural effusion, focal consolidation, or pneumothorax. Pulmonary vascularity: Unremarkable. Heart/mediastinum: Cardiomediastinal silhouette is unremarkable. Musculoskeletal: Degenerative changes of the shoulder joints. Other findings: None IMPRESSION: 1. No acute cardiopulmonary disease process. 2. COPD changes. [facility], , 12/13/2023 10:21 AM
--- NOTE | 2023-12-13 11:16 | P.PN ---
Subjective Progress Note Date: 12/12/23 12/12/2023: Patient was seen for follow-up. Patient is laying in the bed, having her lunch. Patient denies any headache, no dizziness. 12/11/2023: Patient was seen for a follow-up. 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 As per nursing report: "staff heard pt yelling. when staff walked in, pt was found to be on the ground on her back with her head against the sofa. pt is confused and stated she was returning from the grocery store. post fall pt complaining of left hip pain. Son Oleg notified of his mother falling. Dr. Saha notified and ordered pelvic,hip,lumbar XRs. per report not fracture noted on XRs". CT head revealed remote ischemia and degenerative changes. No acute hemorrhage or mass effect. I personally reviewed CT head, agree with the findings. Knee x-ray showed no acute osseous pathology. End-stage tricompartmental os teoarthritic changes. X-ray of the tibia-fibula was negative for fracture. Objective - Vital Signs Vital signs: Vital Signs Temp 99.3 F 12/12/23 12:00 Pulse 84 12/12/23 12:09 Resp 17 12/12/23 12:00 BP 120/69 12/12/23 12:00 Pulse Ox 100 12/12/23 12:00 FiO2 Intake & Output 12/11/23 12/12/23 12/12/23 18:59 06:59 18:59 Intake Total 540 10 Output Total 2325 800 Balance -2325 -260 10 Intake: IV 10 Invasive Line 2 10 Oral 540 0 Output: Urine 2325 800 Other: Voiding Method Indwelling Catheter Indwelling Catheter Indwelling Catheter # Bowel Movements 1 - Exam Patient at present is laying in the bed, in no distress. Patient knows that she is in [place] in [place]. She could not tell the month or the year. Patient continues to have ataxia of the left upper extremity. - Labs CBC & Chem 7: 12/11/23 08:16 12/11/23 08:16 Assessment and Plan Assessment: * No evidence of stroke or TIA at this time. Patient denies any focal symptoms. Patient's examination is stable as compared to the last admission. Patient d oes have bilateral severe ICA stenosis, but family has declined any intervention during the admission in December 2022. 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 Proximal left ICA stenosis, 70% secondary to calcified plaque. * Atrial fibrillation on anticoagulation with Eliquis 2.5 mg twice a day, also on Plavix 75 mg daily. * History of right CEA. * Hypertension * Hyperlipidemia * Chronic back pain * History of breast cancer * Status post fall early this morning, with no acute change. Plan: * Patient denies any new focal symptoms at this time. Her examination is stable and she continues to have mild focal signs related to her previous stroke with left arm ataxia. * Patient has severe bilateral ICA stenosis right>left, and family has declined surgery or any intervention in the past, numerous times (February 2023 and December 2022). Patient does not want to pursue any surgical intervention for her carotid disease even at this time. * 2D echo revealed LVEF 60 to 65%. Moderate to severe LV wall thickness. No obvious regional wall motion abnormalities. Moderately increased left atrial volume. No significant valvular abnormalities. * Neurologically clear for discharge on Eliquis 2.5 mg twice a day, Plavix 75 mg daily and Pravachol 40 mg daily. * Patient has asymptomatic bradycardia, paroxysmal atrial fibrillation. C ardiology do not intend to place pacemaker. * Other medical management as per IM and cardiology * We will sign off. Please reconsult neurology if any concerns.
--- NOTE | 2023-12-13 12:21 | P.PN ---
Subjective HISTORY OF PRESENT ILLNESS: This is a 88-year-old female with a past medical history significant for CVA, COPD, dementia, and atrial fibrillation. Patient follows in the office with Dr. Lott. We have been asked to see the patient in consultation for bradycardia. Patient examined at the bedside. Patient is sitting up in the chair. There is no family present at the time of examination. Per patient's nurse, patient presented to the hospital with increasing weakness and concern for CVA. The patient denies having any chest pain or pressure. She denies any shortness of breath. Telemetry this morning reveals sinus mechanism with heart rate in the 60s. Overnight, the patient's heart rates have been in the 50s with dips down into the 40s. No heart block or significant pauses have been noted. The patient currently denies any dizziness or lightheadedness. There have been no reported episodes of syncope. DIAGNOSTICS: - EKG reveals sinus mechanism with nonspecific ST-T wave changes. No signs of acute ischemia. - CT brain: No acute intracranial process. Old lacunar infarct in prior infarct noted. - Laboratory data: WBC 7.8. Hemoglobin 8.1. Platelet count 332. Sodium 140. Potassium 4.4. BUN 31. Creatinine 0.86. Magnesium 2.0. TSH 1.540. - Current home cardiac medications include Eliquis 2.5 mg twice a day, Lipitor 10 mg daily, Plavix 75 mg daily, Lasix 20 mg every 2 days, Imdur 30 mg daily, amlodipine 10 mg daily - Most recent echocardiogram obtained in February 2023 revealing ejection fraction 60 to 65% with mild TR and mild pulmonary pretension - Cardiac catheterization history: January 2019 which was negative for ischemia 12/11/2023 Patient examined this morning the bedside. Patient is somewhat confused at the time of examination. She denies chest pain or pressure. She denies shortness of breath. There is no family present. The patient did have a fall last night. According to nursing documentation, the patient was confused and thought she was at the grocery store. Patient's heart rate is in the 80s at the time of examination. Telemetry reviewed with no significant pauses or heart block not ed. Patient remains on anticoagulation. Hemoglobin stable at 9.2. Echocardiogram completed revealing ejection fraction 60 to 65%, severe pulmonary hypertension, trace MR, mild TR and moderate to severe concentric left ventricular thickness. December 12 2023 Patient examined this morning the bedside. Patient currently denies chest pain or pressure. She denies shortness of breath. Telemetry reveals sinus mechanism with heart rate in the 80s. She continues to complain of pain in her hip from her fall yesterday. 12/13/2023 Patient examined this morning at the bedside. Patient currently denies chest pain or pressure. She denies shortness of breath. She continues to report pain in her right hip. Telemetry reveals sinus mechanism with a heart rate in the 80-90s. PHYSICAL EXAM: VITAL SIGNS: Reviewed. GENERAL: Well-developed in no acute distress. HEENT: Head is normocephalic. Pupils are equal, round. Sclerae anicteric. Mucous membranes of the mouth are moist. Neck supple. No JVD or thyromegaly LUNGS: Respirations even and unlabored. Lungs essentially clear to auscultation bilaterally. HEART: Regular rate and rhythm. S1 and S2 heard. ABDOMEN: Soft. Nondistended. Nontender. EXTREMITIES: Normal range of motion. No clubbing or cyanosis. Peripheral pulses intact. No lower extremity edema NEUROLOGIC: Awake and alert. ASSESSMENT: Worsening generalized weakness Asymptomatic bradycardia without episodes of syncope Paroxysmal atrial fibrillation, currently maintaining sinus mechanism History of CVA History of COPD History of dementia Carotid stenosis Severe pulmonary hypertension Status post mechanical fall due to confusion; patient apparently thought she was at the grocery store PLAN: Continue current cardiac medications Continue telemetry monitoring Patient has had bradycardia for several months now. Patient without any cardiac complaints. She is maintaining normal blood pressures. Patient without complaints of dizziness or lightheadedness. No episodes of syncope have been reported. Patient's heart rate is currently in the 80s at the time of examination. She does become bradycardic at night with heart rate into the 40s and 50s. No significant pauses or heart block have been noted. No plans for pacemaker implantation at this time per Dr. Kaylie Lott called patient's son Ray 12/11/23 on the phone and discussed plan of care including no plans for pacemaker implantation. Patient son verbalized understanding and all questions were answered. Discharge per medicine Further recommendations pending patient course Nurse practitioner note has been reviewed by physician. Signing provider agrees with the documented findings, assessment, and plan of care documented by TELETYPE TELEGRAPHER as a scribe. Objective - Vital Signs Vital signs: Vital Signs Temp 98.3 F 12/13/23 12:00 Pulse 88 12/13/23 12:00 Resp 17 12/13/23 12:00 BP 121/55 12/13/23 12:00 Pulse Ox 95 12/13/23 12:00 FiO2 Intake & Output 12/12/23 12/13/23 12/13/23 18:59 06:59 18:59 Intake Total 260 10 120 Output Total 300 Balance 260 -290 120 Weight 56 kg Intake: IV 20 10 Invasive Line 2 20 10 Oral 240 120 Output: Urine 300 Other: Voiding Method Indwelling Catheter Indwelling Catheter Indwelling Catheter # Bowel Movements 2 - Labs CBC & Chem 7: 12/11/23 08:16 12/11/23 08:16
--- NOTE | 2023-12-13 17:58 | P.PN ---
Subjective Progress Note Date: 12/13/23 Patient is an 88-year-old -[place] female with past medical history sig nificant for CVA/TIA with left-sided residual, hypertension, hyperlipidemia, atrial fibrillation anticoagulated on Eliquis, heart failure, COPD, chronic hypoxemic respiratory failure on 2 L/min nasal cannula 18/09, former smoker, among other things. She is currently being evaluated on the cardiac stepdown unit. She is drowsy and a very poor historian. She has no complaints at the moment. She does know that she is in the hospital, but is unsure of why. Patient actually admitted back on 12/08/2023 with the chief complaint of lower back pain and difficulties ambulating. She did have a mechanical fall yesterday while inpatient. She is anticoagulated on Eliquis for history of atrial fibrill ation. CT of the brain did not show any acute hemorrhage or mass effect. Remote ischemia and degenerative changes. Pulmonary was consulted as the patient has had increased oxygen demands. Currently no respiratory distress. Nontachypneic. No obvious coughing. No audible wheezing. Chest x-ray showing cardiomegaly with pulmonary vascular congestion, and blunting of the left costophrenic angle. Transthoracic echocardiogram done this admission showing a left ventricular ejection fraction estimated at 60 to 65% as well as moderate to severe concentric LVH. RVSP 72. Patient is currently drowsy but not in any acute distress. She is on 4 L/min nasal cannula. SpO2 reading 97%. Heart rate 94 bpm. Telemetry monitoring showing atrial flutter 3-1. Noted to be bradycardic earlier in her hospitalization. Blood pressure normotensive. Afebrile. CBC: WBC count 13.2, hemoglobin 9.2, hematocrit 30.3, platelets 320. CMP: Sodium 138, potassium 4.4, chloride 103, serum bicarb 33, BUN 25, cre atinine 0.67, glucose 105. LFTs unremarkable. Urinalysis unremarkable for infection. Hemodynamics are stable at this time. On 12/13/2023, no new complaints and the patient is resting comfortably in bed. No interval worsening shortness of breath. Medication has been noted and the patient remains on Lasix 20 mg every other day. She remains on anticoagulation with Eliquis. IV fluids are currently at KVO. No new labs are available from today. She remains on oxygen at 4 L with a pulse ox of 98%. Tolerating her diet. Adequate swallow. No new complaints. Objective - Vital Signs Vital signs: Vital Signs Temp 99 F 12/13/23 07:34 Pulse 88 12/13/23 09:17 Resp 17 12/13/23 07:34 BP 128/64 12/13/23 07:34 Pulse Ox 96 12/13/23 07:34 FiO2 Intake & Output 12/12/23 12/13/23 12/13/23 18:59 06:59 18:59 Intake Total 260 10 120 Output Total 300 Balance 260 -290 120 Weight 56 kg Intake: IV 20 10 Invasive Line 2 20 10 Oral 240 120 Output: Urine 300 Other: Voiding Method Indwelling Catheter Indwelling Catheter Indwelling Catheter # Bowel Movements 2 - Exam GENERAL EXAM: Drowsy, 88-year-old female, oriented to person and place, fairly comfortable in no apparent distress. HEAD: Normocephalic and atraumatic EYES: Normal reaction of pupils, equal size. NOSE: Clear with pink turbinates. THROAT: No erythema or exudates. NECK: No masses, no JVD. CHEST: No chest wall deformity. LUNGS: Equal air entry with no crackles, wheeze, rhonchi or dullness. On 4 L/min nasal cannula. No conversational dyspnea or accessory muscle use while at rest CVS: S1 and S2 normal with no audible murmur, regular rhythm. No extra heart sounds ABDOMEN: No hepatosplenomegaly, active bowel sounds, no guarding or rigidity. SPINE: No scoliosis or deformity SKIN: No rashes CENTRAL NERVOUS SYSTEM: No focal deficits, tone is normal in all 4 extremities. EXTREMITIES: There is no peripheral edema, clubbing, or cyanosis. Peripheral pulses are intact. - Labs CBC & Chem 7: 12/11/23 08:16 12/11/23 08:16 Assessment and Plan Assessment: Acute on chronic hypoxemic respiratory failure, possibly secondary to an exacerbation of diastolic heart failure. Chest x-ray showing cardiomegaly, pulmonary vascular congestion and blunting of the left costophrenic angle Chronic obstructive pulmonary disease, appears stable Chronic hypoxemic respiratory failure, normally maintained on 2 L/min nasal cannula while at home Acute leukocytosis Mechanical fall Anemia, without acute blood loss noted while inpatient History of CVA, with left-sided residual weakness Bilateral carotid artery stenosis, with greater than 90% stenosis in the pro ximal right ICA and at least 70% stenosis of the left proximal ICA Abdominal aortic aneurysm, 5.4 x 5 cm infrarenal large abdominal aortic aneurysm with extension to the right iliac artery, being monitored by vascular surgery History of advanced dementia History of breast cancer History of hypertension History of hyperlipidemia History of paroxysmal atrial fibrillation, anticoagulated on Eliquis Multiple medical debilities Plan: The patient is chronically debilitated and she has become progressively more debilitated and deconditioned in addition to above mentioned comorbidities. Agree on the current plan. No other adjustments were done. Continue the bronchodilators and the patient is already on DuoNeb. IV fluids are currently at KVO Continue oral Lasix 20 mg every other day. Anticoagulation with Eliquis. Cardiology evaluation. Adequate swallow. No risk for aspiration at this point in time. Mobility is limited. Will follow
--- NOTE | 2023-12-14 06:37 | P.PN ---
Subjective Progress Note Date: 12/13/23 HISTORY OF PRESENT ILLNESS: 88-year-old with active medical history of CVA with left-sided weakness, with mild spinal stenosis, history of cognitive impairment and memory loss, hy perglycemia, mild systolic congestive heart failure, recurrent UTI who was in and out subacute rehab at [facility] few times in the last few weeks last time was 4 debility secondary to lower back pain along with stroke and COPD could not ambulate and walk and that being the hospital for few days and sent to [facility] were spent almost 3 weeks was supposed to go to assisted living apparently the 2 sons will manage her affairs decided to hire extra help and bring her home which patient has been starting again same thing like last time not been able to ambulate and walk not been able to be independent on her own. Apparently last few days has been having rough time using the walker with worsening left upper extremity pain discomfort and weakness she did not remember a mention having any fall lately but sometime just could not grab the walker and walk and could not use the left side become a lot weaker than expected since same side she had a stroke on last time. Workup in the emergency department after arrived by EMS With pulse ox 94 percentile pulse still running slightly below sometimes in the 40s and 50s blood pressure was 105/48. Laboratory value with mild anemia not changed since last time UA was negative and chemistry did not show any acute kidney injury this time. CAT scan of the brain showed no acute intracranial process with old lacunar infarct in the prior infarct mostly in the right thalamic lacunar area and old right frontal parietal infarct as well. Also she has chronic appearing periventricular white matter ischemic change similar to small vessel disease. The patient was admitted to the hospital will require again physical therapy for her debility my conclusion there is no sign of new stroke compared to the last 1 and patient having difficult time walking can be the impact of her arthritis along with the impact of her bradycardia which from few months ago family had declined doing pacer when was needed for severe bradycardia was more symptomatic causing syncope. Will talk to the kids again about the plan whether assisted living is in the resident for them on chest patient need to be treated and expect to return home. 12/09/2023: I have long discussion with the son today who was at the bedside explained to him was going on with his mom review her cardiac care nurse from which showing her pulse rate running in the 30s and 40s the patient is extremely exhausted tired and having more symptoms he is frustrated how many times she get up in the middle of the night use of bathroom and every time there is a high risk for fall she is very restless and night. She promised to think and talk to his brother about possibility of his mom going for pacemaker which in my opinion will help to make the tiredness fatigue and lightheadedness would probably this exhaustion much better as she is quite bradycardic most of the day and sig nificantly at nighttime. Also he promised to think about the possibility of having her doing Jay catheter and go home with Jay catheter for the next 2 months and have a nurse at home try to manage it with the better and prepare for getting her more rest not having to get up many times at night use the bathroom since he believes she is having a lot more polyuria at nighttime. Waiting for cardiology consultation today otherwise and truthfully I do not see any reason for patient to see neurology since there is no finding consistent with any extension of stroke or new stroke at this point continue current finding from previous admission and previous testing for stroke or mini stroke. Mrs. Medrano truthfully still have significant debilitated condition require more help apparently the family have put more effort and help at home since she left [facility] last time but still having more problem and frustrating to her and her family I can manage it and if we can improve the tiredness fatigue and the multi urination at nighttime may be will be again plan for both family and patient. 12/10/2023:Her Holter monitor and telemetry showed her pulse rate has improved slight bit but still running in the 40s and 50s not 30s anymore. Patient also continue to be severely symptomatic with weakness fatigue tiredness and slight left-sided weakness. Request consultation for neurology and cardiology cardiology apparently study although I am not decided no reason for pacemaker required at this point but to pursue this from neurology standpoint or patient was seen and evaluated she is known to have bilateral carotid stenosis worse on the left than the right side and previously discussed the result and try to have patient schedule for further testing if needed. Laboratory value today shows significant drop in hemoglobin to 8.1 from 9.1 knowing that patient is still on anticoagulation probably the stress of body is going through with causing probably stress ulcer. Might require transfusion if she drops further more otherwise continue PPI. 12/11/2023: As a big surprise patient had fall this morning with slight trauma she is not acting herself CAT scan of the brain was performed no sign of bleed, also and that explain her left hip and knee along with leg no fracture was found the knee has quite bit bad arthritis at this point. EKG showed nonspecific ST abnormality with no ischemic change. Blood testing still showing normal white blood cell but hemoglobin is down to 8.1 so not quite sure if patient has been going through any active bleed not appear to be visible at this point but to be watched carefully rest of her testing including kidney function and thyroid magnesium were good. She is remain quite bit confused mildly agitated at time but more calm and almost very sleepy most of the time. Apparently despite the severe bradycardia and symptomatic event patient is going to cardiology do not believe she need a pacemaker at this point family been notified by cardiology and no argument about it, initially family were against the idea of pacemaker in the first place but with the current finding with the level of confusion and recurrent symptoms repeatedly besides seeing this bradycardia on heart monitor dipping into this. He not quite sure what cells beside her current dementia and current course of management. Verbalized to the family repeatedly again patient required assisted living versus long-term prison not such a plan with short-term physical therapy course on the prison plan because more often patient is not participating in it cannot establish much more than having to put her in a wheelchair and have her to stay in a wheelchair and move in bed. Other option which apparently has been talk about which whether patient is up to the degree having to consider hospice or not which again she had enough comorbidity but her mortality with management might take longer than 6 months so not quite sure if that make her a good candidate for hospice at this point. Again we will continue to address with the family recurrent concern hoping roopa berrios come with a conclusion for placement or assisted living. 12/12/2023: Since the fall all x-ray came back negative for any fracture brain CAT scan did not show any change. Patient mobility still significantly decreased her pulse oximetry become down quite but she is required 4 L of oxygen to keep her pulse ox in the 90s. Hemoglobin dropped down early but have improved afterward all other testing done have been good pulse has improved in the 60s and 70s with her EKG up to 80s at this point. The patient is still quite bit confused her dementia is much worse than before and she is not combat [place] not having any behavioral problem lately. Reviewed testing again with a assistant professor of music including her echocardiogram continue to show well-preserved ejection fraction with ejection fraction 60-65 percentile seem that patient had severe pulmonary hypertension as well with mild tricuspid regurgitation with no pericardial effusion. No major change with cardiology management still been treated for diastolic congestive heart failure as well which patient remain on furosemide 20, isosorbide 30 continue amlodipine 10 mg vitamin D and her blood pressure below 140 systolic. Family apparently not interested of doing any further management patient is going to return home with more help including visiting nurse and extra help. 12/13/2023: Patient mobility significantly decreased she has not moved much out of bed still trying with physical therapy, her oxygenation has been low without O2 she required 2 to 4 L to keep her pulse ox above 90 percentile, patient also still on furosemide and remain on anticoagulation. The kids are probably making arrangement for patient to return home she will be seen [facility] home care service apparently the socially responsible investment adviser talking to the family they have no interest having patient in any assisted living or any place at this point. Patient has not ambulate or walk still have oxygen at home portable tank shower chair walker and such. I contacted the son twice earlier could not get hold of him and went into answering machine see if he is willing to take his mom knowing that her ability to move still extremely limited and she is mostly resting in bed require more than 1 person assistant inventory manager to walk with a walker. Apparently socially responsible investment adviser has been in contact with the family and the plan is still to have her return home with extra help provided which if that is the case and there is no further problem require any management including that they are not interested in pacemaker or any invasive patient probably can return home as early as tomorrow. REVIEW OF SYSTEMS: CONSTITUTIONAL: Elderly slightly confused in no acute respiratory distress. EYES: No icterus sclerae, no conjunctivitis. EARS, NOSE, MOUTH, THROAT, and FACE: No sore throat, lymphadenopathy, carotid bruits or deformity. RESPIRATORY: No SOB cough or wheezes. CARDIOVASCULAR: No CP, Palpitation, PND, Orthopnea, or angina. Positive arrhythmia. GASTROINTESTINAL: No Abd pain, Nausea or vomiting, no Diarrhea or constipation, No GI Bleed, no distention or masses. GENITOURINARY: Negative for Hematuria or UTI, no kidney stones. INTEGUMENT/BREAST: Negative for any muscular injury with mild osteoarthritis.. Significant back pain. HEMATOLOGIC/LYMPHATIC: Negative for bleed or purpura. Back: Continue to have debilitated discomfort in the lower lumbar area shooting toward the lower extremity specially the right side. MUSCULOSKELTAL: Severe myalgia and arthralgia with slight weakness in the left upper extremity and severe fatigue tiredness of the lower extremities as well. NEURLOGICAL: No LOC, Sz or syncope, blurred vision dizziness or abnormality.. BEHAVIORAL/PSYCH: Negative. ENDOCRINE: Negative. PHYSICAL EXAMINATION: General Appearance: Alert, cooperative, significantly confused no acute respiratory distress. Neck HEENT: Supple, no lymphadenopathy, no thyroid enlargement, no carotid bruits. Lungs: Clear to auscultation without crackles or wheezes no rhonchi, no deformity. Chest Wall: Chest wall normal expansion with deep inspiration no tenderness and no deformity was found on exam, no costochondral pain or discomfort. Heart: Irregular rate and rhythm, S1, S2 normal, no murmur, rub or gallop. Back: Significant discomfort lower back area with significant scoliosis and mild kyphosis with slight tenderness in the lumbar spine. Abdomen: Soft, non-tender, bowel sounds active all four quadrants, no masses, no organomegaly. Extremities: Extremities normal, atraumatic, no cyanosis or edema. Pulses: 2+ and symmetric. Skin: Skin color, texture, tugor normal, no rashes or lesions. Neurologic: Alert significantly confused, cranial nerves II through XII intact, slight generalized weakness in the right side compared to the left side with severe abnormal balance and gait. ASSESSMENT AND PLAN: _Possible new stroke affecting the left side making it much weaker, with the exception of a change in mental status and worsening confusion patient physical mobility and ability remain the same at this point. _Bilateral carotid stenosis the left than the right close 90 percentile apparently patient and family had declined repeatedly going for surgical intervention. Still on anticoagulation. _Severe bradycardia: Still been watched on cardiac care nurse no hypothyroidism no electrolyte imbalance family will notify there were against idea of having pacemaker in the first place with cardiology assured family that pacemaker is not the answer at this point despite his symptomatic bradycardia and still a concern if she is to move on her own how much this will impact her ability. _Diastolic congestive heart failure: With worsening symptoms consistent with shortness of breath, hypoxia and arrhythmia, still on medical management only keep watching her fluid overload and urine output. _Severe pulmonary hypertension with pulmonary pressure of 72 mmHg again continue to be treated with diuretics along with calcium channel noam and nitro. _Fall with mild injury including close head trauma, left hip left knee: All were x-ray did not show any major abnormality. _Altered mental status: Most likely combination of severe bradycardia along with extension of her dementia mostly more than stroke or new stroke. _Dyspnea and shortness of breath: Most likely congestive heart failure systolic dysfunction which patient has been treated for it so far when patient is more bradycardic she become more symptomatic. _History of COPD with no flareup lately remain on updraft treatment and O2. _A-fib with RVR: Pulse rates under control continue Eliquis. _Advanced dementia: Remain on donepezil and Seroquel I believe adding Namenda might have little bit more calming effect even patient still seen neurology but will add Namenda at 5 mg daily started today. _Intractable lower back pain with worsening symptom consistent with bulging disc and spinal stenosis she is on medical management only. _Hypertension: Continue amlodipine 10 mg a day avoid beta-noam especially with her bradycardia still on isosorbide and furosemide as well. _Debility: Patient is still debilitated, quite confused, require more help than expected but family still insist on going home with extra care at home. No need for any further management at this point continue current medication and will wrap things up and prepare hopefully for home for tomorrow. Objective - Vital Signs Vital signs: Vital Signs Temp 99.2 F 12/14/23 04:04 Pulse 79 12/14/23 04:04 Resp 14 12/14/23 04:04 BP 115/58 12/14/23 04:04 Pulse Ox 94 L 12/14/23 04:04 FiO2 Intake & Output 12/13/23 12/13/23 12/14/23 06:59 18:59 06:59 Intake Total 10 472 0 Output Total 300 600 400 Balance -290 -128 -400 Weight 56 kg 56.5 kg Intake: IV 10 10 Invasive Line 2 10 10 Oral 462 0 Output: Urine 300 600 400 Other: Voiding Method Indwelling Catheter Indwelling Catheter Indwelling Catheter - Labs CBC & Chem 7: 12/11/23 08:16 12/11/23 08:16
[2023-12-14 06:54] LABS: Anisocytosis Slight; HCT 27.8 % (34.0-46.0); HGB 8.5 gm/dL (11.4-16.0); Hypochromasia Marked; MCHC 30.7 g/dL (31.0-37.0); MCV 84.6 fL (80.0-100.0); Mean Platelet Volume 7.1; Microcytosis Slight; Platelet Count 350 k/uL (150-450); RBC 3.29 m/uL (3.80-5.40); RDW 19.2 % (11.5-15.5); WBC 9.5 k/uL (3.8-10.6)
[2023-12-14 07:22] LABS: ALT 9 U/L (4-34); AST 18 U/L (14-36); African American GFR (CKD) 87 (>60 ml/min/1.73 sqM); Albumin 2.8 g/dL (3.5-5.0); Alkaline Phosphatase 63 U/L (38-126); Blood Urea Nitrogen 20 mg/dL (7-17); Chloride 94 mmol/L (98-107); Glucose 102 mg/dL (74-99); Non-African American GFR(CKD) 76 (>60 ml/min/1.73 sqM); Potassium 3.3 mmol/L (3.5-5.1); Sodium 136 mmol/L (137-145); Total Bilirubin 0.8 mg/dL (0.2-1.3); Total Protein 5.2 g/dL (6.3-8.2)
[2023-12-14 07:34] LABS: Anion Gap 6 mmol/L; Carbon Dioxide 36 mmol/L (22-30)
[2023-12-14 07:55] VITALS: RESP 18
[2023-12-14 11:14] VITALS: BP 103/55; PULSE 81; TEMP 98.3
--- NOTE | 2023-12-14 12:41 | P.PN ---
Subjective HISTORY OF PRESENT ILLNESS: This is a 88-year-old female with a past medical history significant for CVA, COPD, dementia, and atrial fibrillation. Patient follows in the office with Dr. Lott. We have been asked to see the patient in consultation for bradycardia. Patient examined at the bedside. Patient is sitting up in the chair. There is no family present at the time of examination. Per patient's nurse, patient presented to the hospital with increasing weakness and concern for CVA. The patient denies having any chest pain or pressure. She denies any shortness of breath. Telemetry this morning reveals sinus mechanism with heart rate in the 60s. Overnight, the patient's heart rates have been in the 50s with dips down into the 40s. No heart block or significant pauses have been noted. The patient currently denies any dizziness or lightheadedness. There have been no reported episodes of syncope. DIAGNOSTICS: - EKG reveals sinus mechanism with nonspecific ST-T wave changes. No signs of acute ischemia. - CT brain: No acute intracranial process. Old lacunar infarct in prior infarct noted. - Laboratory data: WBC 7.8. Hemoglobin 8.1. Platelet count 332. Sodium 140. Potassium 4.4. BUN 31. Creatinine 0.86. Magnesium 2.0. TSH 1.540. - Current home cardiac medications include Eliquis 2.5 mg twice a day, Lipitor 10 mg daily, Plavix 75 mg daily, Lasix 20 mg every 2 days, Imdur 30 mg daily, amlodipine 10 mg daily - Most recent echocardiogram obtained in February 2023 revealing ejection fraction 60 to 65% with mild TR and mild pulmonary pretension - Cardiac catheterization history: January 2019 which was negative for ischemia 12/11/2023 Patient examined this morning the bedside. Patient is somewhat confused at the time of examination. She denies chest pain or pressure. She denies shortness of breath. There is no family present. The patient did have a fall last night. According to nursing documentation, the patient was confused and thought she was at the grocery store. Patient's heart rate is in the 80s at the time of examination. Telemetry reviewed with no significant pauses or heart block not ed. Patient remains on anticoagulation. Hemoglobin stable at 9.2. Echocardiogram completed revealing ejection fraction 60 to 65%, severe pulmonary hypertension, trace MR, mild TR and moderate to severe concentric left ventricular thickness. December 12 2023 Patient examined this morning the bedside. Patient currently denies chest pain or pressure. She denies shortness of breath. Telemetry reveals sinus mechanism with heart rate in the 80s. She continues to complain of pain in her hip from her fall yesterday. 12/13/2023 Patient examined this morning at the bedside. Patient currently denies chest pain or pressure. She denies shortness of breath. She continues to report pain in her right hip. Telemetry reveals sinus mechanism with a heart rate in the 80-90s. 12/14/2023 Patient examined this morning at the bedside. Patient currently denies chest pain or pressure. She denies shortness of breath. Telemetry reveals sinus mechanism with a heart rate in the 80-90s. PHYSICAL EXAM: VITAL SIGNS: Reviewed. GENERAL: Well-developed in no acute distress. HEENT: Head is normocephalic. Pupils are equal, round. Sclerae anicteric. Mucous membranes of the mouth are moist. Neck supple. No JVD or thyromegaly LUNGS: Respirations even and unlabored. Lungs essentially clear to auscultation bilaterally. HEART: Regular rate and rhythm. S1 and S2 heard. ABDOMEN: Soft. Nondistended. Nontender. EXTREMITIES: Normal range of motion. No clubbing or cyanosis. Peripheral pulses intact. No lower extremity edema NEUROLOGIC: Awake and alert. ASSESSMENT: Worsening generalized weakness Asymptomatic bradycardia without episodes of syncope Paroxysmal atrial fibrillation, currently maintaining sinus mechanism History of CVA History of COPD History of dementia Carotid stenosis Severe pulmonary hypertension Status post mechanical fall due to confusion; patient apparently thought she was at the grocery store PLAN: Continue current cardiac medications Continue telemetry monitoring Patient has had bradycardia for several months now. Patient without any cardiac complaints. She is maintaining normal blood pressures. Patient without complaints of dizziness or lightheadedness. No episodes of syncope have been reported. Patient's heart rate is currently in the 80s at the time of exam ination. She does become bradycardic at night with heart rate into the 40s and 50s. No significant pauses or heart block have been noted. No plans for pacemaker implantation at this time per Dr. Kaylie Lott called patient's son Ray 12/11/23 on the phone and discussed plan of care including no plans for pacemaker implantation. Patient son verbalized understanding and all questions were answered. Discharge per medicine We will sign off. Please reconsult if needed. Nurse practitioner note has been reviewed by physician. Signing provider agrees with the documented findings, assessment, and plan of care documented by COREMAKING SUPERVISOR as a scribe. Objective - Vital Signs Vital signs: Vital Signs Temp 98.3 F 12/14/23 11:12 Pulse 81 12/14/23 11:12 Resp 18 12/14/23 11:12 BP 103/55 12/14/23 11:12 Pulse Ox 97 12/14/23 11:12 FiO2 Intake & Output 12/13/23 12/14/23 12/14/23 18:59 06:59 18:59 Intake Total 472 0 10 Output Total 600 400 250 Balance -128 -400 -240 Weight 56.5 kg Intake: IV 10 10 Invasive Line 2 10 10 Oral 462 0 Output: Urine 600 400 250 Other: Voiding Method Indwelling Catheter Indwelling Catheter Indwelling Catheter # Bowel Movements 1 - Labs CBC & Chem 7: 12/14/23 06:16 12/14/23 06:16 Labs: Abnormal Lab Results - Last 24 Hours (Table) 12/14/23 12/14/23 Range/Units 06:16 06:16 RBC 3.29 L (3.80-5.40) m/uL Hgb 8.5 L (11.4-16.0) gm/dL Hct 27.8 L (34.0-46.0) % MCHC 30.7 L (31.0-37.0) g/dL RDW 19.2 H (11.5-15.5) % Sodium 136 L (137-145) mmol/L Potassium 3.3 L (3.5-5.1) mmol/L Chloride 94 L (98-107) mmol/L Carbon Dioxide 36 H (22-30) mmol/L BUN 20 H (7-17) mg/dL Glucose 102 H (74-99) mg/dL Total Protein 5.2 L (6.3-8.2) g/dL Albumin 2.8 L (3.5-5.0) g/dL
--- NOTE | 2023-12-14 13:34 | P.DS ---
Providers Date of admission: 12/08/23 18:42 Attending physician: Tacos Saha Consults: 12/09/23 10:25 Consult Physician Routine Consulting Provider: Cruz Bloom Consult Reason/Comments: severe Bradycardia, will need Pacer Do you want consulting provider notified?: Yes 12/10/23 08:43 Consult Physician Routine Consulting Provider: James Felder Consult Reason/Comments: weakness, slowed speech Do you want consulting provider notified?: Yes 12/12/23 06:00 Consult Physician Routine Consulting Provider: Dung Bee Consult Reason/Comments: bilateral pleural effusions, vascular congestion Do you want consulting provider notified?: Yes Primary care physician: [facility] Hospital Course: HISTORY OF PRESENT ILLNESS: 88-year-old with active medical history of CVA with left-sided weakness, with mild spinal stenosis, history of cognitive impairment and memory loss, hyperglycemia, mild systolic congestive heart failure, recurrent UTI who was in and out subacute rehab at [facility] few times in the last few weeks last time was 4 debility secondary to lower back pain along with stroke and COPD could not ambulate and walk and that being the hospital for few days and sent to [facility] were spent almost 3 weeks was supposed to go to assisted living apparently the 2 sons will manage her affairs decided to hire extra help and bring her home which patient has been starting again same thing like last time not been able to ambulate and walk not been able to be independent on her own. Apparently last few days has been having rough time using the walker with worsening left upper extremity pain discomfort and weakness she did not remember a mention having any fall lately but sometime just could not grab the walker and walk and could not use the left side become a lot weaker than expected since same side she had a stroke on last time. Workup in the emergency department after arrived by EMS With pulse ox 94 percentile pulse still running slightly below sometimes in the 40s and 50s blood pressure was 105/48. Laboratory value with mild anemia not changed since last time UA was negative and chemistry did not show any acute kidney injury this time. CAT scan of the brain showed no acute intracranial process with old lacunar infarct in the prior infarct mostly in the right thalamic lacunar area and old right frontal parietal infarct as well. Also she has chronic appearing periventricular white matter ischemic change similar to small vessel disease. The patient was admitted to the hospital will require again physical therapy for her debility my conclusion there is no sign of new stroke compared to the last 1 and patient having difficult time walking can be the impact of her arthritis along with the impact of her bradycardia which from few months ago family had declined doing pacer when was needed for severe bradycardia was more symptomatic causing syncope. Will talk to the kids again about the plan whether assisted living is in the resident for them on chest patient need to be treated and expect to return home. 12/09/2023: I have long discussion with the son today who was at the bedside explained to him was going on with his mom review her machine puller and laster from which showing her pulse rate running in the 30s and 40s the patient is extremely exhausted tired and having more symptoms he is frustrated how many times she get up in the middle of the night use of bathroom and every time there is a high risk for fall she is very restless and night. She promised to think and talk to his brother about possibility of his mom going for pacemaker which in my opinion will help to make the tiredness fatigue and lightheadedness would probably this exhaustion much better as she is quite bradycardic most of the day and significantly at nighttime. Also he promised to think about the possibility of having her doing Jay catheter and go home with Jay catheter for the next 2 months and have a nurse at home try to manage it with the better and prepare for getting her more rest not having to get up many times at night use the bathroom since he believes she is having a lot more polyuria at nighttime. Waiting for cardiology consultation today otherwise and truthfully I do not see any reason for patient to see neurology since there is no finding consistent with any extension of stroke or new stroke at this point continue current finding from previous admission and previous testing for stroke or mini stroke. Mrs. Medrano truthfully still have significant debilitated condition require more help apparently the family have put more effort and help at home since she left [facility] last time but still having more problem and frustrating to her and her family I can manage it and if we can improve the tiredness fatigue and the multi urination at nighttime may be will be again plan for both family and patient. 12/10/2023:Her Holter monitor and telemetry showed her pulse rate has improved slight bit but still running in the 40s and 50s not 30s anymore. Patient also continue to be severely symptomatic with weakness fatigue tiredness and slight left-sided weakness. Request consultation for neurology and cardiology cardiology apparently study although I am not decided no reason for pacemaker required at this point but to pursue this from neurology standpoint or patient was seen and evaluated she is known to have bilateral carotid stenosis worse on the left than the right side and previously discussed the result and try to have patient schedule for further testing if needed. Laboratory value today shows significant drop in hemoglobin to 8.1 from 9.1 knowing that patient is still on anticoagulation probably the stress of body is going through with causing probably stress ulcer. Might require transfusion if she drops further more otherwise continue PPI. 12/11/2023: As a big surprise patient had fall this morning with slight trauma she is not acting herself CAT scan of the brain was performed no sign of bleed, also and that explain her left hip and knee along with leg no fracture was found the knee has quite bit bad arthritis at this point. EKG showed nonspecific ST abnormality with no ischemic change. Blood testing still showing normal white blood cell but hemoglobin is down to 8.1 so not quite sure if patient has been going through any active bleed not appear to be visible at this point but to be watched carefully rest of her testing including kidney function and thyroid magnesium were good. She is remain quite bit confused mildly agitated at time but more calm and almost very sleepy most of the time. Apparently despite the severe bradycardia and symptomatic event patient is going to cardiology do not believe she need a pacemaker at this point family been notified by cardiology and no argument about it, initially family were against the idea of pacemaker in the first place but with the current finding with the level of confusion and recurrent symptoms repeatedly besides seeing this bradycardia on heart monitor dipping into this. He not quite sure what cells beside her current dementia and current course of management. Verbalized to the family repeatedly again patient required assisted living versus long-term prison not such a plan with short-term physical therapy course on the prison plan because more often patient is not participating in it cannot establish much more than having to put her in a wheelchair and have her to stay in a wheelchair and move in bed. Other option which apparently has been talk about which whether patient is up to the degree having to consider hospice or not which again she had enough comorbidity but her mortality with management might take longer than 6 months so not quite sure if that make her a good candidate for hospice at this point. Again we will continue to address with the family recurrent concern hoping family come with a conclusion for placement or assisted living. 12/12/2023: Since the fall all x-ray came back negative for any fracture brain CAT scan did not show any change. Patient mobility still significantly decreased her pulse oximetry become down quite but she is required 4 L of oxygen to keep her pulse ox in the 90s. Hemoglobin dropped down early but have improved afterward all other testing done have been good pulse has improved in the 60s and 70s with her EKG up to 80s at this point. The patient is still quite bit confused her dementia is much worse than before and she is not combative not having any behavioral problem lately. Reviewed testing again with a director of nursing including her echocardiogram continue to show well-preserved ejection fraction with ejection fraction 60-65 percentile seem that patient had severe pulmonary hypertension as well with mild tricuspid regurgitation with no pericardial effusion. No major change with cardiology management still been treated for diastolic congestive heart failure as well which patient remain on furosemide 20, isosorbide 30 continue amlodipine 10 mg vitamin D and her blood pressure below 140 systolic. Family apparently not interested of doing any further management patient is going to return home with more help including visiting nurse and extra help. 12/13/2023: Patient mobility significantly decreased she has not moved much out of bed still trying with physical therapy, her oxygenation has been low without O2 she required 2 to 4 L to keep her pulse ox above 90 percentile, patient also still on furosemide and remain on anticoagulation. The kids are probably making arrangement for patient to return home she will be seen [facility] home care service apparently the social service liaison talking to the family they have no interest having patient in any assisted living or any place at this point. Patient has not ambulate or walk still have oxygen at home portable tank shower chair walker and such. I contacted the son twice earlier could not get hold of him and went into answering machine see if he is willing to take his mom knowing that her ability to move still extremely limited and she is mostly resting in bed require more than 1 person reading assistant to walk with a walker. Apparently social service liaison has been in contact with the family and the plan is still to have her return home with extra help provided which if that is the case and there is no further problem require any management including that they are not interested in pacemaker or any invasive patient probably can return home as early as tomorrow. REVIEW OF SYSTEMS: CONSTITUTIONAL: Elderly slightly confused in no acute respiratory distress. EYES: No icterus sclerae, no conjunctivitis. EARS, NOSE, MOUTH, THROAT, and FACE: No sore throat, lymphadenopathy, carotid bruits or deformity. RESPIRATORY: No SOB cough or wheezes. CARDIOVASCULAR: No CP, Palpitation, PND, Orthopnea, or angina. Positive arrhythmia. GASTROINTESTINAL: No Abd pain, Nausea or vomiting, no Diarrhea or constipation, No GI Bleed, no distention or masses. GENITOURINARY: Negative for Hematuria or UTI, no kidney stones. INTEGUMENT/BREAST: Negative for any muscular injury with mild osteoarthritis.. Significant back pain. HEMATOLOGIC/LYMPHATIC: Negative for bleed or purpura. Back: Continue to have debilitated discomfort in the lower lumbar area shooting toward the lower extremity specially the right side. MUSCULOSKELTAL: Severe myalgia and arthralgia with slight weakness in the left upper extremity and severe fatigue tiredness of the lower extremities as well. NEURLOGICAL: No LOC, Sz or syncope, blurred vision dizziness or abnormality.. BEHAVIORAL/PSYCH: Negative. ENDOCRINE: Negative. PHYSICAL EXAMINATION: General Appearance: Alert, cooperative, significantly confused no acute respiratory distress. Neck HEENT: Supple, no lymphadenopathy, no thyroid enlargement, no carotid bruits. Lungs: Clear to auscultation without crackles or wheezes no rhonchi, no deformity. Chest Wall: Chest wall normal expansion with deep inspiration no tenderness and no deformity was found on exam, no costochondral pain or discomfort. Heart: Irregular rate and rhythm, S1, S2 normal, no murmur, rub or gallop. Back: Significant discomfort lower back area with significant scoliosis and mild kyphosis with slight tenderness in the lumbar spine. Abdomen: Soft, non-tender, bowel sounds active all four quadrants, no masses, no organomegaly. Extremities: Extremities normal, atraumatic, no cyanosis or edema. Pulses: 2+ and symmetric. Skin: Skin color, texture, tugor normal, no rashes or lesions. Neurologic: Alert significantly confused, cranial nerves II through XII intact, slight generalized weakness in the right side compared to the left side with severe abnormal balance and gait. ASSESSMENT AND PLAN: _Possible new stroke affecting the left side making it much weaker, with the exception of a change in mental status and worsening confusion patient physical mobility and ability remain the same at this point. _Bilateral carotid stenosis the left than the right close 90 percentile apparently patient and family had declined repeatedly going for surgical intervention. Still on anticoagulation. _Severe bradycardia: Still been watched on machine puller and laster no hypothyroidism no electrolyte imbalance family will notify there were against idea of having pacemaker in the first place with cardiology assured family that pacemaker is not the answer at this point despite his symptomatic bradycardia and still a concern if she is to move on her own how much this will impact her ability. _Diastolic congestive heart failure: With worsening symptoms consistent with shortness of breath, hypoxia and arrhythmia, still on medical management only keep watching her fluid overload and urine output. _Severe pulmonary hypertension with pulmonary pressure of 72 mmHg again continue to be treated with diuretics along with calcium channel noam and nitro. _Fall with mild injury including close head trauma, left hip left knee: All were x-ray did not show any major abnormality. _Altered mental status: Most likely combination of severe bradycardia along with extension of her dementia mostly more than stroke or new stroke. _Dyspnea and shortness of breath: Most likely congestive heart failure systolic dysfunction which patient has been treated for it so far when patient is more bradycardic she become more symptomatic. _History of COPD with no flareup lately remain on updraft treatment and O2. _A-fib with RVR: Pulse rates under control continue Eliquis. _Advanced dementia: Remain on donepezil and Seroquel I believe adding Namenda might have little bit more calming effect even patient still seen neurology but will add Namenda at 5 mg daily started today. _Intractable lower back pain with worsening symptom consistent with bulging disc and spinal stenosis she is on medical management only. _Hypertension: Continue amlodipine 10 mg a day avoid beta-noam especially with her bradycardia still on isosorbide and furosemide as well. _Debility: Patient is still debilitated, quite confused, require more help than expected but family still insist on going home with extra care at home. No need for any further management at this point continue current medication and will wrap things up and prepare hopefully for home for tomorrow. Hospital course: Patient brought to the emergency department on 12/08/2023 not been able to ambulate or walk not been able to care for herself had more confusion and altered mental status along with significant weakness in the left side. Urine at the time was negative CAT scan of the brain did not show any intracranial abnormality the patient require more than 1 person reading assistant to help with more confused she was hospitalized found to have severe bradycardia initially with pulse rate running in the 30s and 40s and initial argument with the family about possibility of pacer family or quite against it at the time. Patient ended up being seen neurology reviewed the CAT scan and felt despite the fact she had slight weakness in the left side there is no sign of new onset of ischemic change consistent with stroke or mini stroke. Patient was seen cardiology review of her machine puller and laster and testing determined that she does not need a pacemaker at this point she is remain on anticoagulation able to maintain it. Patient had sustained major fall on the 15 and ended up going back for CAT scan of the brain, cervical spine and x-ray of the hip and knee and the leg on the left side no fracture was found. Patient still requires oxygen and slightly bit confused and going and and out of her current mental status with worsening confusion at the time. She was initiated on Namenda beside her donepezil and continue her antianxiety medication the same. Offering family extra help with extra service including assisted living and such apparently they have an arrangement for extra help at home and patient need all her equipment including walker, shower chair oxygen tank nebulizer and oxygen dispenser. Patient should be able to return home today with extra help knowing I dealt with this repeatedly the manage she is back home again realized she is not able to ambulate and require more help than expected and her potential of returning back to the hospital will be almost 95 percentile within a week to 10 days. Try with the family with the social service liaison all possibility and potential and all fail decision is to have her go home and have extra help. I attempted to contact the case open about having palliative care and further more for hospice as well specially with patient's current condition with her atherosclerotic heart disease, severe arrhythmia, and severe pulmonary hypertension patient will be more symptomatic than expected specially with shortness of breath and worsening bradycardia might require further help. Also with her decline in memory worsening dementia expected to be a lot worse and I expect patient physically to decline faster than expected that she might require 2 person reading assistant to help her to get out of bed at the time and eventually if family are receptive to it may be can benefit from either hospice at home or having to go into institution to do hospice. Patient is stable currently with family wishes to return home with extra help and if this is decline will move into the next step as to consider hospice as an alternative. Time spent on patient discharge was over 35 minutes. Plan - Discharge Summary Discharge Rx Participant: No New Discharge Prescriptions: New Memantine [Namenda] 5 mg PO DAILY #30 tab Ipratropium-Albuterol Nebulize [Duoneb 0.5 mg-3 mg/3 ml Soln] 3 ml INHALATION RT-QID #120 each Continue Pantoprazole [Protonix] 40 mg PO DAILY DULoxetine HCL [Cymbalta] 30 mg PO DAILY Albuterol Inhaler [Ventolin Hfa Inhaler] 2 puff INHALATION RT-Q6H PRN PRN Reason: Shortness Of Breath Clopidogrel [Plavix] 75 mg PO DAILY 30 Days #30 tab Melatonin 5 mg PO HS Acetaminophen-Codeine 300-30mg [Tylenol w/codeine #3] 1 tab PO Q6H PRN 3 Days #12 tablet PRN Reason: Pain Isosorbide Mononitrate ER [Imdur] 30 mg PO DAILY Furosemide [Lasix] 20 mg PO Q48H Apixaban [Eliquis] 2.5 mg PO BID Cholecalciferol [Vitamin D3 (25 Mcg = 1000 Iu)] 25 mcg PO DAILY Ascorbic Acid [Vitamin C] 500 mg PO DAILY Atorvastatin [Lipitor] 10 mg PO DAILY Ferrous Sulfate [Iron (65 MG Elemental)] 325 mg PO DAILY QUEtiapine [SEROquel] 37.5 mg PO HS amLODIPine [Norvasc] 10 mg PO DAILY Donepezil [Aricept] 10 mg PO HS Acetaminophen Tab [Tylenol] 325 mg PO Q6H PRN PRN Reason: Pain Or Fever > 100.5 Discharge Medication List Pantoprazole [Protonix] 40 mg PO DAILY 04/11/18 [History] Albuterol Inhaler [Ventolin Hfa Inhaler] 2 puff INHALATION RT-Q6H PRN 04/29/22 [History] Apixaban [Eliquis] 2.5 mg PO BID 04/29/22 [History] DULoxetine HCL [Cymbalta] 30 mg PO DAILY 04/29/22 [History] Furosemide [Lasix] 20 mg PO Q48H 04/29/22 [History] Isosorbide Mononitrate ER [Imdur] 30 mg PO DAILY 04/29/22 [History] Cholecalciferol [Vitamin D3 (25 Mcg = 1000 Iu)] 25 mcg PO DAILY 09/30/22 [History] Ascorbic Acid [Vitamin C] 500 mg PO DAILY 10/27/22 [History] Clopidogrel [Plavix] 75 mg PO DAILY 30 Days #30 tab 12/28/22 [Rx] Atorvastatin [Lipitor] 10 mg PO DAILY 03/04/23 [History] Ferrous Sulfate [Iron (65 MG Elemental)] 325 mg PO DAILY 03/04/23 [History] QUEtiapine [SEROquel] 37.5 mg PO HS 08/01/23 [History] amLODIPine [Norvasc] 10 mg PO DAILY 09/05/23 [History] Acetaminophen Tab [Tylenol] 325 mg PO Q6H PRN 10/29/23 [History] Donepezil [Aricept] 10 mg PO HS 10/29/23 [History] Melatonin 5 mg PO HS 10/29/23 [History] Acetaminophen-Codeine 300-30mg [Tylenol w/codeine #3] 1 tab PO Q6H PRN 3 Days #12 tablet 11/02/23 [Rx] Ipratropium-Albuterol Nebulize [Duoneb 0.5 mg-3 mg/3 ml Soln] 3 ml INHALATION RT-QID #120 each 12/14/23 [Rx] Memantine [Namenda] 5 mg PO DAILY #30 tab 12/14/23 [Rx] Follow up Appointment(s)/Referral(s): Karen Shepard,Home Care [NON-STAFF] - Tacos Saha MD [Primary Care Provider] - 1-2 days Discharge Disposition: HOME WITH HOME HEALTH SERVICES
[2023-12-14] MEDS ORDERED: Potassium Replacement Protocol 1 EACH MISC MISCELLANE PRN (13:53)
--- NOTE | 2023-12-14 13:54 | P.PN ---
Subjective Progress Note Date: 12/14/23 Patient is an 88-year-old -I[place]ian female with past medical history sig nificant for CVA/TIA with left-sided residual, hypertension, hyperlipidemia, atrial fibrillation anticoagulated on Eliquis, heart failure, COPD, chronic hypoxemic respiratory failure on 2 L/min nasal cannula 18/09, former smoker, among other things. She is currently being evaluated on the cardiac stepdown unit. She is drowsy and a very poor historian. She has no complaints at the moment. She does know that she is in the hospital, but is unsure of why. Patient actually admitted back on 12/08/2023 with the chief complaint of lower back pain and difficulties ambulating. She did have a mechanical fall yesterday while inpatient. She is anticoagulated on Eliquis for history of atrial fibrill ation. CT of the brain did not show any acute hemorrhage or mass effect. Remote ischemia and degenerative changes. Pulmonary was consulted as the patient has had increased oxygen demands. Currently no respiratory distress. Nontachypneic. No obvious coughing. No audible wheezing. Chest x-ray showing cardiomegaly with pulmonary vascular congestion, and blunting of the left costophrenic angle. Transthoracic echocardiogram done this admission showing a left ventricular ejection fraction estimated at 60 to 65% as well as moderate to severe concentric LVH. RVSP 72. Patient is currently drowsy but not in any acute distress. She is on 4 L/min nasal cannula. SpO2 reading 97%. Heart rate 94 bpm. Telemetry monitoring showing atrial flutter 3-1. Noted to be bradycardic earlier in her hospitalization. Blood pressure normotensive. Afebrile. CBC: WBC count 13.2, hemoglobin 9.2, hematocrit 30.3, platelets 320. CMP: Sodium 138, potassium 4.4, chloride 103, serum bicarb 33, BUN 25, cre atinine 0.67, glucose 105. LFTs unremarkable. Urinalysis unremarkable for infection. Hemodynamics are stable at this time. On 12/13/2023, no new complaints and the patient is resting comfortably in bed. No interval worsening shortness of breath. Medication has been noted and the patient remains on Lasix 20 mg every other day. She remains on anticoagulation with Eliquis. IV fluids are currently at KVO. No new labs are available from today. She remains on oxygen at 4 L with a pulse ox of 98%. Tolerating her diet. Adequate swallow. No new complaints. 12/14/2023, the patient's condition essentially unchanged. She is baseline confused. Denies having any chest pain. Is having any significant shortness of breath. She remains hemodynamically stable and there is no other significant events overnight. The patient remains on the same medication for now. Oxygen requirements remain unchanged compared to yesterday and the patient remains on 40 Suboxone by nasal cannula with pulse ox of 97%. Objective - Vital Signs Vital signs: Vital Signs Temp 98.3 F 12/14/23 11:12 Pulse 81 12/14/23 11:12 Resp 18 12/14/23 11:12 BP 103/55 12/14/23 11:12 Pulse Ox 97 12/14/23 11:12 FiO2 Intake & Output 12/13/23 12/14/23 12/14/23 18:59 06:59 18:59 Intake Total 472 0 10 Output Total 600 400 250 Balance -128 -400 -240 Weight 56.5 kg Intake: IV 10 10 Invasive Line 2 10 10 Oral 462 0 Output: Urine 600 400 250 Other: Voiding Method Indwelling Catheter Indwelling Catheter Indwelling Catheter # Bowel Movements 1 - Exam GENERAL EXAM: Drowsy, 88-year-old female, oriented to person and place, fairly comfortable in no apparent distress. HEAD: Normocephalic and atraumatic EYES: Normal reaction of pupils, equal size. NOSE: Clear with pink turbinates. THROAT: No erythema or exudates. NECK: No masses, no JVD. CHEST: No chest wall deformity. LUNGS: Equal air entry with no crackles, wheeze, rhonchi or dullness. On 4 L/min nasal cannula. No conversational dyspnea or accessory muscle use while at rest CVS: S1 and S2 normal with no audible murmur, regular rhythm. No extra heart sounds ABDOMEN: No hepatosplenomegaly, active bowel sounds, no guarding or rigidity. SPINE: No scoliosis or deformity SKIN: No rashes CENTRAL NERVOUS SYSTEM: No focal deficits, tone is normal in all 4 extremities. EXTREMITIES: There is no peripheral edema, clubbing, or cyanosis. Peripheral pulses are intact. - Labs CBC & Chem 7: 12/14/23 06:16 12/14/23 06:16 Labs: Abnormal Lab Results - Last 24 Hours (Table) 12/14/23 12/14/23 Range/Units 06:16 06:16 RBC 3.29 L (3.80-5.40) m/uL Hgb 8.5 L (11.4-16.0) gm/dL Hct 27.8 L (34.0-46.0) % MCHC 30.7 L (31.0-37.0) g/dL RDW 19.2 H (11.5-15.5) % Sodium 136 L (137-145) mmol/L Potassium 3.3 L (3.5-5.1) mmol/L Chloride 94 L (98-107) mmol/L Carbon Dioxide 36 H (22-30) mmol/L BUN 20 H (7-17) mg/dL Glucose 102 H (74-99) mg/dL Total Protein 5.2 L (6.3-8.2) g/dL Albumin 2.8 L (3.5-5.0) g/dL Assessment and Plan Assessment: Acute on chronic hypoxemic respiratory failure, possibly secondary to an exacerbation of diastolic heart failure. Chest x-ray showing cardiomegaly, pul monary vascular congestion and blunting of the left costophrenic angle Chronic obstructive pulmonary disease, appears stable Chronic hypoxemic respiratory failure, normally maintained on 2 L/min nasal cannula while at home Acute leukocytosis Mechanical fall Anemia, without acute blood loss noted while inpatient History of CVA, with left-sided residual weakness Bilateral carotid artery stenosis, with greater than 90% stenosis in the proximal right ICA and at least 70% stenosis of the left proximal ICA Abdominal aortic aneurysm, 5.4 x 5 cm infrarenal large abdominal aortic aneurysm with extension to the right iliac artery, being monitored by vascular surgery History of advanced dementia History of breast cancer History of hypertension History of hyperlipidemia History of paroxysmal atrial fibrillation, anticoagulated on Eliquis Multiple medical debilities Plan: Condition is unchanged and no other recommendations made from the pulmonary and the clinical standpoint. The patient is chronically debilitated and she has become progressively more debilitated and deconditioned in addition to above mentioned comorbidities. Agree on the current plan. No other adjustments were done. Continue the bronchodilators and the patient is already on DuoNeb. IV fluids are currently at KVO Continue oral Lasix 20 mg every other day. Anticoagulation with Eliquis. Cardiology evaluation. Adequate swallow. No risk for aspiration at this point in time. Mobility is limited. Likely discharge today.
[2023-12-14] MEDS: POTASSIUM CHLORIDE ER 20 MEQ TAB.ER PO SCH (14:54)
--- NOTE | 2023-12-17 13:01 | P.DS ---
Providers Date of admission: 12/08/23 18:42 Expected date of discharge: 12/14/23 Attending physician: Tacos Saha Consults: 12/10/23 08:43 Consult Physician Routine Consulting Provider: James Felder Consult Reason/Comments: weakness, slowed speech Do you want consulting provider notified?: Yes 12/12/23 06:00 Consult Physician Routine Consulting Provider: Dung Bee Consult Reason/Comments: bilateral pleural effusions, vascular congestion Do you want consulting provider notified?: Yes Primary care physician: [facility] Course: Final diagnosis _Possible new stroke affecting the left side making it much weaker, with the exception of a change in mental status and worsening confusion patient physical mobility and ability remain the same at this point. _Bilateral carotid stenosis the left than the right close 90 percentile apparently patient and family had declined repeatedly going for surgical intervention. Still on anticoagulation. _Severe bradycardia: Still been watched on bus driver/monitor no hypothyroidism no electrolyte imbalance family will notify there were against idea of having pacemaker in the first place with cardiology assured family that pacemaker is not the answer at this point despite his symptomatic bradycardia and still a concern if she is to move on her own how much this will impact her ability. _Diastolic congestive heart failure: With worsening symptoms consistent with shortness of breath, hypoxia and arrhythmia, still on medical management only keep watching her fluid overload and urine output. _Severe pulmonary hypertension with pulmonary pressure of 72 mmHg again continue to be treated with diuretics along with calcium channel noam and nitro. _Fall with mild injury including close head trauma, left hip left knee: All were x-ray did not show any major abnormality. _Altered mental status: Most likely combination of severe bradycardia along with extension of her dementia mostly more than stroke or new stroke. _Dyspnea and shortness of breath: Most likely congestive heart failure systolic dysfunction which patient has been treated for it so far when patient is more bradycardic she become more symptomatic. _History of COPD with no flareup lately remain on updraft treatment and O2. _A-fib with RVR: Pulse rates under control continue Eliquis. _Advanced dementia: Remain on donepezil and Seroquel I believe adding Namenda might have little bit more calming effect even patient still seen neurology but will add Namenda at 5 mg daily started today. _Intractable lower back pain with worsening symptom consistent with bulging disc and spinal stenosis she is on medical management only. _Hypertension: Continue amlodipine 10 mg a day avoid beta-noam especially with her bradycardia still on isosorbide and furosemide as well. _Debility: Patient is still debilitated, quite confused, require more help than expected but family still insist on going home with extra care at home. No need for any further management at this point continue current medication and will wrap things up and prepare hopefully for home for tomorrow. Discharge disposition Patient is being discharged in stable condition with guarded prognosis to [facility] on the [address]. Patient will follow-up with primary care provider in the outpatient setting on discharge. Total time taken is greater than 35 minutes. Hospital course Patient brought to the emergency department on 12/08/2023 not been able to ambulate or walk not been able to care for herself had more confusion and altered mental status along with significant weakness in the left side. Urine at the time was negative CAT scan of the brain did not show any intracranial abnormality the patient require more than 1 person land surveyor assistant to help with more confused she was hospitalized found to have severe bradycardia initially with pulse rate running in the 30s and 40s and initial argument with the family about possibility of pacer family or quite against it at the time. Patient ended up being seen neurology reviewed the CAT scan and felt despite the fact she had slight weakness in the left side there is no sign of new onset of ischemic change consistent with stroke or mini stroke. Patient was seen cardiology review of her bus driver/monitor and testing determined that she does not need a pacemaker at this point she is remain on anticoagulation able to maintain it. Patient had sustained major fall on the 15 and ended up going back for CAT scan of the brain, cervical spine and x-ray of the hip and knee and the leg on the left side no fracture was found. Patient still requires oxygen and slightly bit confused and going and and out of her current mental status with worsening confusion at the time. She was initiated on Namenda beside her donepezil and continue her antianxiety medication the same. Offering family extra help with extra service including assisted living and such apparently they have an arrangement for extra help at home and patient need all her equipment including walker, shower chair oxygen tank nebulizer and oxygen dispenser. Patient should be able to return home today with extra help knowing I dealt with this repeatedly the manage she is back home again realized she is not able to ambulate and require more help than expected and her potential of returning back to the hospital will be almost 95 percentile within a week to 10 days. Try with the family with the social work supervisor all possibility and potential and all fail decision is to have her go home and have extra help. I attempted to contact the case open about having palliative care and further more for hospice as well specially with patient's current condition with her atherosclerotic heart disease, severe arrhythmia, and severe pulmonary hypertension patient will be more symptomatic than expected specially with shortness of breath and worsening bradycardia might require further help. Also with her decline in memory worsening dementia expected to be a lot worse and I expect patient physically to decline faster than expected that she might require 2 person land surveyor assistant to help her to get out of bed at the time and eventually if family are receptive to it may be can benefit from either hospice at home or having to go into institution to do hospice. Patient is stable currently with family wishes to return home with extra help an d if this is decline will move into the next step as to consider hospice as an alternative. 12/13/2023: Patient mobility significantly decreased she has not moved much out of bed still trying with physical therapy, her oxygenation has been low without O2 she required 2 to 4 L to keep her pulse ox above 90 percentile, patient also still on furosemide and remain on anticoagulation. The kids are probably making arrangement for patient to return home she will be seen [facility] home care service apparently the social work supervisor talking to the family they have no interest having patient in any assisted living or any place at this point. Patient has not ambulate or walk still have oxygen at home portable tank shower chair walker and such. I contacted the son twice earlier could not get hold of him and went into answering machine see if he is willing to take his mom knowing that her ability to move still extremely limited and she is mostly resting in bed require more than 1 person land surveyor assistant to walk with a walker. Apparently social work supervisor has been in contact with the family and the plan is still to have her return home with extra help provided which if that is the case and there is no further problem require any management including that they are not interested in pacemaker or any invasive patient probably can return home as early as tomorrow. 12/14/2023 Patient was scheduled to go home with son although son came to the hospital reported she is still too weak and would like her to go to rehab. Jazlyn has declined reporting she is at her baseline and what she was when she left last ti me and patient has been accepted at [facility] on the [address] and can accommodate with a bed today. Son is okay with this and arrangements are being made for discharge today. Please refer to other documentation for further HPI. PHYSICAL EXAMINATION: General Appearance: Alert, cooperative, significantly confused no acute respiratory distress. Neck HEENT: Supple, no lymphadenopathy, no thyroid enlargement, no carotid bruits. Lungs: Clear to auscultation without crackles or wheezes no rhonchi, no deformity. Chest Wall: Chest wall normal expansion with deep inspiration no tenderness and no deformity was found on exam, no costochondral pain or discomfort. Heart: Irregular rate and rhythm, S1, S2 normal, no murmur, rub or gallop. Back: Significant discomfort lower back area with significant scoliosis and mild kyphosis with slight tenderness in the lumbar spine. Abdomen: Soft, non-tender, bowel sounds active all four quadrants, no masses, no organomegaly. Extremities: Extremities normal, atraumatic, no cyanosis or edema. Pulses: 2+ and symmetric. Skin: Skin color, texture, tugor normal, no rashes or lesions. Neurologic: Alert significantly confused, cranial nerves II through XII intact, slight generalized weakness in the right side compared to the left side with severe abnormal balance and gait. Please refer to medication reconciliation sheet for list of medications The impression and plan of care has been dictated by Sheridan Ventura, Nurse Practitioner as directed. Dr. Vaibhav MD I have performed a history and examination and MDM of this patient, discussed the same with the dictator, and agree with the dictator's assessment and plan as written ,documented as a scribe. Based on total visit time, I have performed more than 50% of the visit. Patient Condition at Discharge: Fair Plan - Discharge Summary Discharge Rx Participant: No New Discharge Prescriptions: New Memantine [Namenda] 5 mg PO DAILY #30 tab Acetaminophen-Codeine 300-30mg [Tylenol w/codeine #3] 1 tab PO Q6H PRN 3 Days #12 tablet PRN Reason: Pain Ipratropium-Albuterol Nebulize [Duoneb 0.5 mg-3 mg/3 ml Soln] 3 ml INHALATION RT-QID #120 each Continue Pantoprazole [Protonix] 40 mg PO DAILY DULoxetine HCL [Cymbalta] 30 mg PO DAILY Albuterol Inhaler [Ventolin Hfa Inhaler] 2 puff INHALATION RT-Q6H PRN PRN Reason: Shortness Of Breath Clopidogrel [Plavix] 75 mg PO DAILY 30 Days #30 tab Melatonin 5 mg PO HS Isosorbide Mononitrate ER [Imdur] 30 mg PO DAILY Furosemide [Lasix] 20 mg PO Q48H Apixaban [Eliquis] 2.5 mg PO BID Cholecalciferol [Vitamin D3 (25 Mcg = 1000 Iu)] 25 mcg PO DAILY Ascorbic Acid [Vitamin C] 500 mg PO DAILY Atorvastatin [Lipitor] 10 mg PO DAILY Ferrous Sulfate [Iron (65 MG Elemental)] 325 mg PO DAILY QUEtiapine [SEROquel] 37.5 mg PO HS amLODIPine [Norvasc] 10 mg PO DAILY Donepezil [Aricept] 10 mg PO HS Acetaminophen Tab [Tylenol] 325 mg PO Q6H PRN PRN Reason: Pain Or Fever > 100.5 Discontinued Acetaminophen-Codeine 300-30mg [Tylenol w/codeine #3] 1 tab PO Q6H PRN 3 Days #12 tablet PRN Reason: Pain Discharge Medication List Pantoprazole [Protonix] 40 mg PO DAILY 04/11/18 [History] Albuterol Inhaler [Ventolin Hfa Inhaler] 2 puff INHALATION RT-Q6H PRN 04/29/22 [History] Apixaban [Eliquis] 2.5 mg PO BID 04/29/22 [History] DULoxetine HCL [Cymbalta] 30 mg PO DAILY 04/29/22 [History] Furosemide [Lasix] 20 mg PO Q48H 04/29/22 [History] Isosorbide Mononitrate ER [Imdur] 30 mg PO DAILY 04/29/22 [History] Cholecalciferol [Vitamin D3 (25 Mcg = 1000 Iu)] 25 mcg PO DAILY 09/30/22 [History] Ascorbic Acid [Vitamin C] 500 mg PO DAILY 10/27/22 [History] Clopidogrel [Plavix] 75 mg PO DAILY 30 Days #30 tab 12/28/22 [Rx] Atorvastatin [Lipitor] 10 mg PO DAILY 03/04/23 [History] Ferrous Sulfate [Iron (65 MG Elemental)] 325 mg PO DAILY 03/04/23 [History] QUEtiapine [SEROquel] 37.5 mg PO HS 08/01/23 [History] amLODIPine [Norvasc] 10 mg PO DAILY 09/05/23 [History] Acetaminophen Tab [Tylenol] 325 mg PO Q6H PRN 10/29/23 [History] Donepezil [Aricept] 10 mg PO HS 10/29/23 [History] Melatonin 5 mg PO HS 10/29/23 [History] Acetaminophen-Codeine 300-30mg [Tylenol w/codeine #3] 1 tab PO Q6H PRN 3 Days #12 tablet 12/14/23 [Rx] Ipratropium-Albuterol Nebulize [Duoneb 0.5 mg-3 mg/3 ml Soln] 3 ml INHALATION RT-QID #120 each 12/14/23 [Rx] Memantine [Namenda] 5 mg PO DAILY #30 tab 12/14/23 [Rx] Follow up Appointment(s)/Referral(s): Karen Shepard,Home Care [NON-STAFF] - Tacos Saha MD [Primary Care Provider] - 1-2 days Activity/Diet/Wound Care/Special Instructions: Activity as tolerated Follow-up with primary care provider on discharge Follow-up with cardiology outpatient Continue with home care Continue current diet Discharge Disposition: TRANSFER TO SNF/ECF
--- NOTE | 2023-12-27 09:55 | CDI ---
Documentation Clarification Form Date: 12/27/2023 09:52:22 AM From: Tiff Barrera Phone: Admit Date: 12/08/2023 06:42:00 PM Patient Name: Kate Medrano Visit Number: [id number] Discharge Date: 12/14/2023 03:41:00 PM ATTENTION: The Clinical Documentation Specialists (CDI) and [facility] Coding Staff appreciate your assistance in clarifying documentation. Please respond to the clarification below the line at the bottom and electronically sign. The CDI & [facility] Coding staff will review the response and follow-up if needed. Please note: Queries are made part of the Legal Health Record. If you have any questions, please contact the author of this message via ITS. Doctor/Provider: Tacos Saha Conflicting documentation has been found in the medical record. As attending physician, please provide clarification. Systolic congestive heart failure: - 12/07 H&P, IM PNs 12/08, 12/09, 12/10 - medical history of mild systolic congestive heart failure; ASSESSMENT AND PLAN: Dyspnea and shortness of breath: Most likely congestive heart failure systolic dysfunction which patient has been treated for it so far when patient is more bradycardic she become more symptomatic. - 12/13 Discharge summary - _Dyspnea and shortness of breath: Most likely congestive heart failure systolic dysfunction which patient has been treated for it so far when patient is more bradycardic she become more symptomatic. Diastolic congestive heart failure: - 12/11 Pulmonology consult, 12/13 Pulmonology PN - Assessment: Acute on chronic hypoxemic respiratory failure, possibly secondary to an exacerbation of diastolic heart failure. - 12/12 IM PN - No major change with cardiology management still been treated for diastolic congestive heart failure as well which patient remain on furosemide 20, isosorbide 30 continue amlodipine 10 mg vitamin D and her blood pressure below 140 systolic. - 12/13 Discharge summary - _Diastolic congestive heart failure: With worsening symptoms consistent with shortness of breath, hypoxia and arrhythmia, still on medical management only keep watching her fluid overload and urine output. History/Risk Factors: Dementia, Paroxysmal Afib, HTN, HLD, Pulmonary HTN, CAD, COPD, history of CVA Clinical Indicators: Patient admitted for weakness, thought to had a stroke but found to have weakness due to arthritis and Bradycardia. 12/07 VS/Pulse OX: Temp - 97.9, ID - 48, RR - 20, BP - 105/58, O2 sat - 90 12/11 BNP: 681 12/09 Echocardiogram Results: Left ventricular ejection fraction 60-65%. Moderate to severe concentric left ventricular thickness with thickness 1.4-1.6 cm. RVSP 72 Trace mitral regurgitation, Mild tricuspid regurgitation, No pericardial effusion 12/10 Chest X Ray: Cardiomegaly, pulmonary vascular congestion and bilateral pleural effusions. Correlate with BNP for congestive heart failure. Treatment: continued on home cardiac medications - Eliquis 2.5 mg twice a day, Lipitor 10 mg daily, Plavix 75 mg daily, Lasix 20 mg every 2 days, Imdur 30 mg daily, amlodipine 10 mg daily Please clarify which diagnosis is most appropriate: [ ] Acute Systolic Heart Failure (reduced EF) [ ] Chronic Systolic Heart Failure (reduced EF) [ ] Acute on Chronic Systolic Heart Failure (reduced EF) [ ] Acute Diastolic Heart Failure (preserved EF) [ ] Chronic Diastolic Heart Failure (preserved EF) [ xx ] Acute on Chronic Diastolic Heart Failure (preserved EF) [ ] Acute Systolic & Diastolic Heart Failure [ ] Chronic Systolic & Diastolic Heart Failure [ ] Acute on Chronic Heart Failure Systolic & Diastolic Heart Failure [ ] Other, please specify [ ] Unable to determine MTDD
--- NOTE | 2024-01-01 09:39 | CDI ---
Documentation Clarification Form Date: 01/01/2024 08:58:34 AM From: Melissa Song RN CCDS Phone: [phone] Admit Date: 12/08/2023 06:42:00 PM Patient Name: Kate Medrano Visit Number: [id number] Discharge Date: 12/14/2023 03:41:00 PM ATTENTION: The Clinical Documentation Specialists (CDI) and [facility] Coding Staff appreciate your assistance in clarifying documentation. Please respond to the clarification below the line at the bottom and electronically sign. The CDI & [facility] Coding staff will review the response and follow-up if needed. Please note: Queries are made part of the Legal Health Record. If you have any questions, please contact the author of this message via ITS. Doctor: Tacos Saha Conflicting documentation has been found in the medical record. As attending physician, please provide clarification. No evidence of stroke or TIA at this time. 12/09, Neurology consult. Possible new stroke affecting the left side making it much weaker 12/13 Discharge Summary History/Risk Factors: 88 year old female presents to the ED with having a rough time using the walker with worsening left upper extremity pain discomfort and weakness. 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 12/07 HP Clinical Indicators: Neurology consult, 12/09: No evidence of stroke or TIA at this time. Patient denies any focal symptoms. Patient's examination is stable as compared to the last admission. DCS, 12/13: Patient ended up being seen neurology reviewed the CAT scan and felt despite the fact she had slight weakness in the left side there is no sign of new onset of ischemic change consistent with stroke or mini stroke. Brain CT w/o contrast, 12/07: No acute intracranial process. Brain CT w/o contrast, 12/10: Remote ischemia and degenerative changes. Treatment: Neurology consult, Physical Therapy Evaluation, Occupational Therapy Evaluation Please clarify which diagnosis is most appropriate: [ ] Stroke ruled in [ ] Stroke rule out [ xx ] Sequale of Stroke 12/27/2022 [ ] Other (please specify) [ ] Unable to determine (Template Last Revised: April 2020) MTDD
--- NOTE | 2024-01-01 10:11 | CDI ---
Documentation Clarification Form Date: 01/01/2024 09:41:11 AM From: Melissa Song RN CCDS Phone: [phone] Admit Date: 12/08/2023 06:42:00 PM Patient Name: Kate Medrano Visit Number: [id number] Discharge Date: 12/14/2023 03:41:00 PM ATTENTION: The Clinical Documentation Specialists (CDI) and [facility] Coding Staff appreciate your assistance in clarifying documentation. Please respond to the clarification below the line at the bottom and electronically sign. The CDI & [facility] Coding staff will review the response and follow-up if needed. Please note: Queries are made part of the Legal Health Record. If you have any questions, please contact the author of this message via ITS. Doctor: Tacos Saha There is documentation of Debility: In the HP, 12/07. Additional clarification is requested. History/Risk Factors: 88 year old female presents to the ED with having a rough time using the walker with worsening left upper extremity pain discomfort and weakness. 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 12/07 Clinical Indicators: 12/07, : _Debility: Secondary to overall general condition withchronic lower back pain, previoushistory of CVA,COPD, advanceddementiapatient mostlikelyrequire placementand further at assisted living or long term. 12/09, Physical Therapy Consult: Recommend: ECF with 24/7 care. Asist required for ADL, High risks for falls, Poor safety, Dementia, Poor level of function. Requires verbal / physical cues. 12/13 Occupational Therapy note: Client consistently declined since admission. Now requires total assist with all dressing, bathing, toileting and teodoro-care. Unable to ambulate. Unable to find static stand balance. Required two staff to transfer sit to stand while blocking left LE due to weakness. Poor safety awareness and elevated risk for falls. Not safe to return home. Currently requires 24/7 care. Client has poor insight into current limitations and overestimates abilities. Will benefit from subacute rehabilitation upon DC. 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 As per nursing report: staff heard patient yelling. When staff walked in, patient was found to be on the ground on her back with her head against the sofa. Patient is confused and stated she was returning from the grocery store. 12/13, DCS: Also with her decline in memory worsening dementia expected to be a lot worse and I expect patient physically to decline faster than expected that she might require 2 person assistant office manager to help her to get out of bed at the time and eventually if family are receptive to it may be can benefit from either hospice at home or having to go into institution to do hospice. 12/13, DCS: Debility: Patient is still debilitated, quite confused, require more help than expected but family still insist on going home with extra care at home. Treatment: Neurology consult, Physical Therapy Evaluation, Occupational Therapy Evaluation, Fall prevention, Assist with ADLs Can you please clarify Debility? [ ] Age related related physical debility [ ] Age related cognitive decline [ XX ] Other, please specify (combinbation of Post CVA and Alzheimer Disease). [ ] Unable to determine (Template Last Revised: April 2020) MTDD
== END 2023-12-14 15:41 | DRG 56 ==
LOC: EC 13:23 → 3SCARD 18:42 → 3NCARDOBS 12-13 22:03 → 3SCARD 12-13 22:03
PROVIDERS: ADMIT Internal Medicine Geriatric Medicine; ATTEND Internal Medicine Geriatric Medicine
DX: I69.354 Hemiplegia and hemiparesis following cerebral infarction affecting left non-dominant side (principal); I50.33 Acute on chronic diastolic (congestive) heart failure; J96.21 Acute and chronic respiratory failure with hypoxia; F03.94 Unspecified dementia, unspecified severity, with anxiety; K92.2 Gastrointestinal hemorrhage, unspecified; I48.92 Unspecified atrial flutter; I69.398 Other sequelae of cerebral infarction; I27.20 Pulmonary hypertension, unspecified; S09.8XXA Other specified injuries of head, initial encounter; I11.0 Hypertensive heart disease with heart failure; Z99.81 Dependence on supplemental oxygen; G93.89 Other specified disorders of brain; I71.43 Infrarenal abdominal aortic aneurysm, without rupture; M17.12 Unilateral primary osteoarthritis, left knee; D64.9 Anemia, unspecified; I65.23 Occlusion and stenosis of bilateral carotid arteries; I48.0 Paroxysmal atrial fibrillation; J43.9 Emphysema, unspecified; M48.061 Spinal stenosis, lumbar region without neurogenic claudication; M51.26 Other intervertebral disc displacement, lumbar region; R00.1 Bradycardia, unspecified; R32 Unspecified urinary incontinence; R53.81 Other malaise; E78.5 Hyperlipidemia, unspecified; W19.XXXA Unspecified fall, initial encounter; G89.29 Other chronic pain; I25.10 Atherosclerotic heart disease of native coronary artery without angina pectoris; I44.0 Atrioventricular block, first degree; Z74.01 Bed confinement status; M25.552 Pain in left hip; Y92.230 Patient room in hospital as the place of occurrence of the external cause; Y99.8 Other external cause status; Z79.01 Long term (current) use of anticoagulants; Z85.3 Personal history of malignant neoplasm of breast; Z87.891 Personal history of nicotine dependence; Z87.440 Personal history of urinary (tract) infections; Z79.02 Long term (current) use of antithrombotics/antiplatelets; Z79.899 Other long term (current) drug therapy
CPT/HCPCS: 36415; 70450; 71045; 72100; 73521; 80053; 81003; 83735; 83880; 84443; 85025; 85027; 87636; 93306; 94640; 94760; 96374; 96375; 99285

== ENCOUNTER 2024-01-30 18:53 | Inpatient (IN) | payer MEDICARE, BC ==
--- NOTE | 2024-01-30 19:52 | ED ---
Lower Extremity Injury HPI - General Chief Complaint: Extremity Injury, Lower Stated Complaint: L hip fracture Time Seen by Provider: 01/30/24 19:01 Source: family, EMS, RN notes reviewed Mode of arrival: EMS Limitations: altered mental status - History of Present Illness Initial Comments: This is an 88-year-old female who presents to the emergency department for a left hip fracture. Patient has been at [facility] since the middle of November. She reportedly had a fall in the hospital prior to being discharged in November and had been complaining of left hip pain since. However, x-rays at that time were negative and she was still able to stand at physical therapy using bars. She has been unable to ambulate with a walker since going to [facility], but had been going to physical therapy up until 2 days ago. The last time she stood using bars at [facility] was a little over a week ago. Family and [facility] have no knowledge of her standing or putting any weight on the leg since. Today she was complaining to staff of increased pain to the left hip, and they took x-rays demonstrating a hip fracture. They have no knowledge of the patient having any falls or injuries that would have led to a fracture, and it is not clear when this would have taken place. Patient has dementia and is unable to provide any history on her own. EMS originally took the patient to [facility], however family requested transfer to our facility for further evaluation. MD Complaint: hip injury - Related Data Home Medications Medication Instructions Recorded Confirmed Pantoprazole [Protonix] 40 mg PO DAILY@0900 04/11/18 01/30/24 Apixaban [Eliquis] 2.5 mg PO BID@0900,2100 04/29/22 01/30/24 DULoxetine HCL [Cymbalta] 30 mg PO DAILY@89904/29/22 01/30/24 Furosemide [Lasix] 20 mg PO Q48H 04/29/22 01/30/24 Isosorbide Mononitrate ER [Imdur] 30 mg PO DAILY@89904/29/22 01/30/24 Cholecalciferol [Vitamin D3 (25 25 mcg PO DAILY@0900 09/30/22 01/30/24 Mcg = 1000 Iu)] Ascorbic Acid [Vitamin C] 500 mg PO DAILY@89910/27/22 01/30/24 Atorvastatin [Lipitor] 10 mg PO HS@209903/04/23 01/30/24 Ferrous Sulfate [Iron (65 MG 325 mg PO DAILY@0900 03/04/23 01/30/24 Elemental)] QUEtiapine [SEROquel] 37.5 mg PO HS@209908/01/23 01/30/24 amLODIPine [Norvasc] 10 mg PO DAILY@0900 09/05/23 01/30/24 Donepezil [Aricept] 10 mg PO HS@209910/29/23 01/30/24 Melatonin 5 mg PO HS@209910/29/23 01/30/24 Acetaminophen [Tylenol 8 Hour] 650 mg PO Q6H PRN 01/30/24 01/30/24 Clopidogrel [Plavix] 75 mg PO DAILY@89901/30/24 01/30/24 Lactose-Reduced Food [Ensure Plus] 1 can PO BID@0900,209901/30/24 01/30/24 Memantine [Namenda] 5 mg PO DAILY@89901/30/24 01/30/24 Previous Rx's Medication Instructions Recorded Acetaminophen-Codeine 300-30mg 1 tab PO Q6H PRN 3 Days #12 tablet 12/14/23 [Tylenol w/codeine #3] Ipratropium-Albuterol Nebulize 3 ml INHALATION RT-QID #120 each 12/14/23 [Duoneb 0.5 mg-3 mg/3 ml Soln] Allergies Allergy/AdvReac Type Severity Reaction Status Date / Time No Known Allergies Allergy Verified 01/30/24 21:22 Review of Systems ROS Statement: Those systems with pertinent positive or pertinent negative responses have been documented in the HPI. ROS Other: All systems not noted in ROS Statement are negative. 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 Past Psychological History: Anxiety Smoking Status: Former smoker Past Alcohol Use History: None Reported Past Drug Use History: None Reported - Past Family History Brother(s) Family Medical History: Cancer Sister(s) Family Medical History: Cancer Mother Additional Family Medical History / Comment(s): enlarged heart General Exam Limitations: altered mental status General appearance: alert, in no apparent distress Head exam: Present: atraumatic, normocephalic, normal inspection Respiratory exam: Present: normal lung sounds bilaterally. Absent: respiratory distress, wheezes, rales, rhonchi, stridor Cardiovascular Exam: Present: regular rate, normal rhythm, normal heart sounds. Absent: systolic murmur, diastolic murmur, rubs, gallop, clicks Extremities exam: Present: other (Shortening and external rotation of the left lower extremity. 2+ DP and PT pulses) Neurological exam: Present: alert Skin exam: Present: warm, dry, intact, normal color. Absent: rash Course Vital Signs 01/30/24 19:12 Temperature 97.8 F Pulse Rate 63 Respiratory 18 Rate Blood Pressure 139/61 O2 Sat by Pulse 99 Oximetry Medical Decision Making - Medical Decision Making This is an 88 year old female who presents to the emergency department for a left hip injury. Was pt. sent in by a medical professional or institution? @ -No Did you speak to anyone other than the patient for history? @ -Patient's sons, Jeison, and Jai Fox provided all of the history. Did you review nursing and triage notes? @ -Yes, and I agree, it is accurate with regards to the patient's symptoms. Were old charts reviewed? @ -X-ray report of the left femur from [facility] demonstrating a subcapital fracture of the left femoral head with resultant coxa vera deformity. Differential Diagnosis? @ -Differential Musculoskeletal Muscular strain, contusion, ligament sprain, fracture, arthritis, septic arthritis, bursitis, cellulitis, muscle spasm, nerve compression, DVT, arterial occlusion, herpes zoster, electrolyte abnormality, tumor.... This is not meant to be in all inclusive list EKG interpreted by me (3pts min.)? @ -EKG interpreted by me demonstrating the following: Sinus rhythm. Ventricular rate 64 bpm, AK interval 239 ms, QRS duration 72 ms, QTc 402 ms. X-rays interpreted by me (1pt min.)? @ -Not obtained CT interpreted by me (1pt min.)? @ -Not obtained U/S interpreted by me (1pt. min.)? @ -Not obtained What testing was considered but not performed? (CT, X-rays, U/S, labs)? Why? @ -None What meds were considered but not given? Why? @ -None Did you discuss the management of the patient with other professionals? @ -Yes, Dr. Abdullahi, who advised medical admission with them on consult. [facility] Loc accepts the patient for admission to medicine. Did you reconcile home meds? @ -Yes Was smoking cessation discussed for >3mins.? @ -No Was critical care preformed (if so, how long)? @ -No Were there social determinants of health that impacted care today? How? (Homelessness, low income, unemployed, alcoholism, drug addiction, transportation, low edu. Level, literacy, decrease access to med. care, custodial, rehab)? @ -No Was there de-escalation of care discussed even if they declined? (Discuss DNR or withdrawal of care, Hospice)? @ -No What co-morbidities impacted this encounter? (DM, HTN, Smoking, COPD, CAD, Cancer, CVA, Hep., AIDS, mental health diagnosis, sleep apnea, morbid obesity)? @ -Dementia, COPD, HLD, HTN, Hx of CVA Was patient admitted / discharged? @ -Admitted. Documentation from [facility] reviewed demonstrating a suspected subcapital fracture of the left femoral head. This is thought to have occurred sometime in the last week, as it has been about a week since she was standing with physical therapy using bars. She has essentially been [facility]. While the patient has dementia and is unable to provide much history on her own, she also denies any falls. When discussing potential surgical intervention with her sons, they advised that they are most likely going to opt out of surgery, but would like some time to think about it. Case discussed with orthopedics who advised patient be admitted to medicine with them on consult and they will review images and discuss options moving forward with the patient and her family. Patient subsequently admitted to medicine for left hip fracture with orthopedic consult. Case discussed with ED attending Dr. Neumann. Undiagnosed new problem with uncertain prognosis? @ -None Drug Therapy requiring intensive monitoring for toxicity (Heparin, Nitro, Insulin, Cardizem)? @ -None Were any procedures done? @ -None Diagnosis/symptom? @ -Left hip fracture Acute, or Chronic, or Acute on Chronic? @ -Acute Uncomplicated (without systemic symptoms) or Complicated (systemic symptoms)? @ -Uncomplicated Side effects of treatment? @ -None Exacerbation, Progression, or Severe Exacerbation] @ -Not applicable Poses a threat to life or bodily function? @ -Yes, this limits her ability to ambulate - Lab Data Result diagrams: 01/30/24 20:23 01/30/24 20:23 Lab Results 01/30/24 01/30/24 01/30/24 Range/Units 20:23 20:23 20:23 WBC 5.7 (3.8-10.6) k/uL RBC 3.25 L (3.80-5.40) m/uL Hgb 8.2 L (11.4-16.0) gm/dL Hct 26.6 L (34.0-46.0) % MCV 81.8 (80.0-100.0) fL MCH 25.2 (25.0-35.0) pg MCHC 30.7 L (31.0-37.0) g/dL RDW 18.2 H (11.5-15.5) % Plt Count 356 (150-450) k/uL MPV 6.6 Neutrophils % 59 % Lymphocytes % 30 % Monocytes % 6 % Eosinophils % 3 % Basophils % 1 % Neutrophils # 3.4 (1.3-7.7) k/uL Lymphocytes # 1.7 (1.0-4.8) k/uL Monocytes # 0.4 (0-1.0) k/uL Eosinophils # 0.2 (0-0.7) k/uL Basophils # 0.0 (0-0.2) k/uL Hypochromasia Marked Anisocytosis Slight Microcytosis Slight PT 11.8 (10.0-12.5) sec INR 1.1 (<1.2) APTT 24.4 (22.0-30.0) sec Sodium 138 (137-145) mmol/L Potassium 3.5 (3.5-5.1) mmol/L Chloride 97 L (98-107) mmol/L Carbon Dioxide 36 H (22-30) mmol/L Anion Gap 5 mmol/L BUN 15 (7-17) mg/dL Creatinine 0.57 (0.52-1.04) mg/dL Est GFR (CKD-EPI)AfAm >90 (>60 ml/min/1.73 sqM) Est GFR (CKD-EPI)NonAf 83 (>60 ml/min/1.73 sqM) Glucose 78 (74-99) mg/dL Calcium 9.7 (8.4-10.2) mg/dL Total Bilirubin 0.4 (0.2-1.3) mg/dL AST 18 (14-36) U/L ALT 7 (4-34) U/L Alkaline Phosphatase 86 (38-126) U/L Total Protein 5.6 L (6.3-8.2) g/dL Albumin 3.0 L (3.5-5.0) g/dL - Radiology Data Radiology results: report reviewed, image reviewed Disposition Clinical Impression: Fracture of left hip Disposition: ADMITTED IP TO THIS HOSP
[2024-01-30] MEDS ORDERED: ACETAMINOPHEN TAB 325 MG TAB PO PRN (20:26)
[2024-01-30] MEDS ORDERED: NALOXONE 0.4 MG/ML 1 ML VIAL IV PRN (20:26)
[2024-01-30] MEDS ORDERED: MORPHINE SULFATE 4 MG/ML SYRINGE IV PRN (20:26)
[2024-01-30] MEDS ORDERED: ONDANSETRON 4 MG/2 ML VIAL IVP PRN (20:26)
[2024-01-30 20:52] LABS: Anisocytosis Slight; Basophils % (A) 1 %; Eosinophils # (A) 0.2 k/uL (0-0.7); Eosinophils % (A) 3 %; HCT 26.6 % (34.0-46.0); HGB 8.2 gm/dL (11.4-16.0); Hypochromasia Marked; Lymphocytes # (A) 1.7 k/uL (1.0-4.8); Lymphocytes % (A) 30 %; MCH 25.2 pg (25.0-35.0); MCHC 30.7 g/dL (31.0-37.0); MCV 81.8 fL (80.0-100.0); Mean Platelet Volume 6.6; Microcytosis Slight; Monocytes # (A) 0.4 k/uL (0-1.0); Monocytes % (A) 6 %; Neutrophils # (A) 3.4 k/uL (1.3-7.7); Neutrophils % (A) 59 %; Platelet Count 356 k/uL (150-450); RBC 3.25 m/uL (3.80-5.40); RDW 18.2 % (11.5-15.5); WBC 5.7 k/uL (3.8-10.6)
[2024-01-30 21:01] LABS: INR 1.1 (<1.2); Partial Thromboplastin Time 24.4 sec (22.0-30.0); Prothrombin Time 11.8 sec (10.0-12.5)
[2024-01-30 21:05] LABS: Potassium 3.5 mmol/L (3.5-5.1)
[2024-01-30 21:06] LABS: ALT 7 U/L (4-34); AST 18 U/L (14-36); African American GFR (CKD) >90 (>60 ml/min/1.73 sqM); Alkaline Phosphatase 86 U/L (38-126); Blood Urea Nitrogen 15 mg/dL (7-17); Calcium 9.7 mg/dL (8.4-10.2); Chloride 97 mmol/L (98-107); Glucose 78 mg/dL (74-99); Non-African American GFR(CKD) 83 (>60 ml/min/1.73 sqM); Sodium 138 mmol/L (137-145); Total Bilirubin 0.4 mg/dL (0.2-1.3); Total Protein 5.6 g/dL (6.3-8.2)
[2024-01-30 21:12] LABS: Anion Gap 5 mmol/L
[2024-01-30 21:23] LABS: Carbon Dioxide 36 mmol/L (22-30)
[2024-01-30] MEDS: Acetaminophen-Codeine 300-30mg TAB PO PRN (22:56)
[2024-01-30] MEDS: FUROSEMIDE 20 MG TAB PO SCH (22:56)
[2024-01-31] MEDS: IPRATROPIUM-ALBUTEROL 3 ML NEB INHALATION SCH (08:18)
[2024-01-31] MEDS ORDERED: NON FORMULARY DRUG (Lactose-Reduced Food [Ensure Plus] 237 ML Ml) PO SCH (09:00)
[2024-01-31] MEDS: APIXABAN 2.5 MG TABLET PO SCH (09:40)
[2024-01-31] MEDS: PANTOPRAZOLE 40 MG/10 ML VIAL IV SCH (09:41)
[2024-01-31] MEDS: CLOPIDOGREL 75 MG TAB PO SCH (09:41)
[2024-01-31] MEDS: PANTOPRAZOLE 40 MG TABLET PO SCH (09:49)
[2024-01-31] MEDS: FERROUS SULFATE 325 MG TAB PO SCH (09:49)
[2024-01-31] MEDS: ISOSORBIDE MONONITRATE ER 30 MG TAB.ER.24H PO SCH (09:49)
[2024-01-31] MEDS: CHOLECALCIFEROL 25 MCG (1000 IU) TABLET PO SCH (09:49)
[2024-01-31] MEDS: amLODIPine 10 MG TAB PO SCH (09:49)
[2024-01-31] MEDS: MEMANTINE 5 MG TAB PO SCH (09:49)
[2024-01-31] MEDS: ASCORBIC ACID 500 MG TAB PO SCH (09:49)
[2024-01-31] MEDS: DULoxetine HCL 30 MG CAPSULE.DR PO SCH (09:53)
--- NOTE | 2024-01-31 10:18 | P.HPIM ---
History of Present Illness H&P Date: 01/31/24 Chief Complaint: Left hip pain Patient is a 88-year-old female with a known history of paroxysmal atrial fibrillation on anticoagulation with Eliquis, asymptomatic bradycardia, COPD, dementia, CVA with left-sided weakness and uses a walker at baseline, hypertension hyperlipidemia, breast cancer, anxiety and prior history of smoking who is currently at [facility] since middle of November percent to hospital due to worsening left hip pain. X-ray of the left hip at [facility] showed acute fracture. Patient is unable to participate in physical therapy due to pain and unable to ambulate and has been getting worse for the past 2 days. The last time she is to be using worse at present she was little over a week. Patient is unable to bear any weight on left leg and was complaining to staff of increasing pain in the left hip. No weakness or fall that there is insidiously. Patient had a fall in the hospital in November and at that time left hip x-ray was done showed negative for any acute fracture. EMS was only took the patient to [facility] however family requested transfer to our facility for further evaluation. EKG showed sinus rhythm with first-degree AV block Lab data showed WBC 5.7 hemoglobin 8.2 MCV 81.8 and platelets 356 sodium 138 potassium 3.5 chloride 97 bicarb is 36 BUN 15 and creatinine 0.57 and blood sugar 78 - Most recent echocardiogram obtained in November 2023 revealed ejection fraction 60 to 65%, severe pulmonary hypertension, mild TR, trace MR, moderate to severe concentric LVH - Patient underwent stress testing in January 2019 which was negative for ischemia Review of Systems Complete review of systems could not be obtained from the patient except as per HPI Past Medical History Past Medical History: Cancer, Chest Pain / Angina, Heart Failure, COPD, CVA/TIA, Dementia, Deep Vein Thrombosis (DVT), Hyperlipidemia, Hypertension, Osteoarthritis (OA), Pneumonia Additional Past Medical History / Comment(s): CVA X2- LEFT SIDE WEAKNESS-uses a walker,, emphysema; hypoglycemia, hx breast cancer, History of Any Multi-Drug Resistant Organisms: None Reported Past Surgical History: Back Surgery, Breast Surgery, Cholecystectomy, Heart Catheterization Additional Past Surgical History / Comment(s): L SUBCLAVIAN ARTERY BYPASS, Rt CAROTID ENDARTECTOMY, rt breast lumpectomy Past Anesthesia/Blood Transfusion Reactions: No Reported Reaction Additional Past Anesthesia/Blood Transfusion Reaction / Comment(s): . Past Psychological History: Anxiety Smoking Status: Former smoker Past Alcohol Use History: None Reported Past Drug Use History: None Reported - Past Family History Brother(s) Family Medical History: Cancer Sister(s) Family Medical History: Cancer Mother Additional Family Medical History / Comment(s): enlarged heart Medications and Allergies Home Medications Medication Instructions Recorded Confirmed Type Pantoprazole [Protonix] 40 mg PO DAILY@89904/11/18 01/30/24 History Apixaban [Eliquis] 2.5 mg PO BID@899,209904/29/22 01/30/24 History DULoxetine HCL [Cymbalta] 30 mg PO DAILY@89904/29/22 01/30/24 History Furosemide [Lasix] 20 mg PO Q48H 04/29/22 01/30/24 History Isosorbide Mononitrate ER [Imdur] 30 mg PO DAILY@89904/29/22 01/30/24 History Cholecalciferol [Vitamin D3 (25 25 mcg PO DAILY@89909/30/22 01/30/24 History Mcg = 1000 Iu)] Ascorbic Acid [Vitamin C] 500 mg PO DAILY@89910/27/22 01/30/24 History Atorvastatin [Lipitor] 10 mg PO HS@209903/04/23 01/30/24 History Ferrous Sulfate [Iron (65 MG 325 mg PO DAILY@89903/04/23 01/30/24 History Elemental)] QUEtiapine [SEROquel] 37.5 mg PO HS@209908/01/23 01/30/24 History amLODIPine [Norvasc] 10 mg PO DAILY@89909/05/23 01/30/24 History Donepezil [Aricept] 10 mg PO HS@209910/29/23 01/30/24 History Melatonin 5 mg PO HS@209910/29/23 01/30/24 History Acetaminophen-Codeine 300-30mg 1 tab PO Q6H PRN 3 Days #12 tablet 12/14/23 01/30/24 Rx [Tylenol w/codeine #3] Ipratropium-Albuterol Nebulize 3 ml INHALATION RT-QID #120 each 12/14/23 01/30/24 Rx [Duoneb 0.5 mg-3 mg/3 ml Soln] Acetaminophen [Tylenol 8 Hour] 650 mg PO Q6H PRN 01/30/24 01/30/24 History Clopidogrel [Plavix] 75 mg PO DAILY@0900 01/30/24 01/30/24 History Lactose-Reduced Food [Ensure Plus] 1 can PO BID@0900,2100 01/30/24 01/30/24 History Memantine [Namenda] 5 mg PO DAILY@0900 01/30/24 01/30/24 History Allergies Allergy/AdvReac Type Severity Reaction Status Date / Time No Known Allergies Allergy Verified 01/30/24 21:22 Physical Exam Vitals: Vital Signs Temp Pulse Pulse Resp BP BP Pulse Ox 01/31/24 08:30 80 01/31/24 08:19 78 97 01/31/24 07:01 97.9 F 75 16 118/62 96 01/31/24 01:16 97.0 F L 77 16 133/61 98 01/30/24 22:11 98.4 F 73 18 117/54 99 01/30/24 21:41 99.1 F 64 17 128/66 98 01/30/24 19:12 97.8 F 63 18 139/61 99 Intake and Output 01/30/24 01/31/24 01/31/24 22:59 06:59 14:59 Output Total 800 Balance -800 Output: Urine 800 Other: Voiding Method Indwelling Catheter Weight 49.9 kg PHYSICAL EXAMINATION: Patient is lying in the bed,, no acute distress, awake alert and oriented, pleasantly confused.. HEENT: Normocephalic. Neck is supple. Pupils reactive. Nostrils clear. Oral cavity is moist. Neck reveals no JVD, carotid bruits, or thyromegaly. CHEST EXAMINATION: Trachea is central. Symmetrical expansion. Lung everett clear to auscultation and percussion. CARDIAC: Normal S1, S2 with no gallops. No murmurs ABDOMEN: Soft. Bowel sounds normal. No organomegaly. No abdominal bruits. Extremities: reveal no edema. No clubbing or cyanosis Neurologically awake, alert, oriented x 1 mild left residual weakness. Able to move all extremities while in bed. Skin: No rash or skin lesions. Psychiatric: Coperative. Could not be assessed completely Musculoskeletal: No joint swelling or deformity. Left hip decreased range of motion Results CBC & Chem 7: 01/30/24 20:23 01/30/24 20:23 Labs: Abnormal Lab Results - Last 24 Hours (Table) 01/30/24 01/30/24 Range/Units 20:23 20:23 RBC 3.25 L (3.80-5.40) m/uL Hgb 8.2 L (11.4-16.0) gm/dL Hct 26.6 L (34.0-46.0) % MCHC 30.7 L (31.0-37.0) g/dL RDW 18.2 H (11.5-15.5) % Chloride 97 L (98-107) mmol/L Carbon Dioxide 36 H (22-30) mmol/L Total Protein 5.6 L (6.3-8.2) g/dL Albumin 3.0 L (3.5-5.0) g/dL Thrombosis Risk Factor Assmnt - DVT/VTE Prophylaxis DVT/VTE Prophylaxis: Pharmacologic Prophylaxis ordered - Choose All That Apply Each Factor Represents 1 point: Medical pt on bed rest Other Risk Factors: Yes Each Risk Factor Represents 2 Points: Age 61-74 years, Patient confined to bed Each Risk Factor Represents 3 Points: Age 75 years or older Each Risk Factor Represents 5 Points: Hip, pelvis, or leg fracture (< 1 month) Thrombosis Risk Factor Assessment Total Risk Factor Score: 13 Thrombosis Risk Factor Assessment Level: High Risk Assessment and Plan Assessment: Left hip subcapital femoral neck fracture Paroxysmal atrial fibrillation on anticoagulation with Eliquis History of CVA with residual left-sided weakness. Patient uses walker at baseline Patient manage bradycardia COPD Hypertension Hyperlipidemia History of breast cancer Anxiety Prior history of smoking Dementia Plan: Patient will be continued on telemonitoring. Continue with DuoNebs and blood pressure medications including Imdur. Orthopedic surgery was consulted. Repeat x-ray was ordered. Orthopedic surgery is planning for OR tentatively tomorrow. Plavix and Eliquis will be on hold. Cardiology was consulted for clearance. Continue to follow closely. Prognosis guarded. Replace electrolytes. Time with Patient: Greater than 30
[2024-01-31] MEDS: HYDROcodone/APAP 5-325MG 1 EACH TAB PO PRN (12:55)
--- NOTE | 2024-01-31 13:08 | P.CNOR ---
History of Present Illness - [facility] Consult date: 01/31/24 Requesting physician: Linn Frankel Consult reason: other (Left hip fracture) History of present illness: Patient is an 88-year-old female who presents to the emergency department due to a left hip fracture. Patient has been residing at [facility] since mid November. Reportedly, patient had a fall in the hospital prior to being discharged in November and was not found to have a fracture at that point. She has been at [facility] where she has had increasing left hip pain and x-rays were performed that did not demonstrate a left hip femoral neck fracture. Patient typically ambulates with a walker, but has been unable to since the most recent injury. Patient has been unable to stand over the past week. Orthopedics was consulted due to left hip fracture. Patient was seen at bedside this afternoon on 4 S. lying the semirecumbent position with left leg shortened and actually rotated. Patient says she is having some right arm pain as well as some back pain and does not mention any significant left lower extremity pain at this time. Due to the patient's history of dementia, rest of the history is difficult to obtain. I did attempt to call patient's power of divorce attorney, her son, Oleg Medrano and left a voicemail. I was able to contact and discuss the situation with montana sorensen's other son Juan Carlos Medrano, and he is aware of the situation and says he will discuss treatment options with his brother. Patient does have a past medical history significant for multiple CVAs as well as cardiac catheterization. Medicine is on board and cardiology has been consulted for clearance for potential orthopedic surgery. Patient is normally on Plavix and Eliquis. We are to withhold blood thinners at this time due to potential need for surgical intervention. Patient denies any other orthopedic complaints at this time. 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 Past Psychological History: Anxiety Smoking Status: Former smoker Past Alcohol Use History: None Reported Past Drug Use History: None Reported - Past Family History Brother(s) Family Medical History: Cancer Sister(s) Family Medical History: Cancer Mother Additional Family Medical History / Comment(s): enlarged heart Medications and Allergies Home Medications Medication Instructions Recorded Confirmed Type Pantoprazole [Protonix] 40 mg PO DAILY@89904/11/18 01/30/24 History Apixaban [Eliquis] 2.5 mg PO BID@04/29/22 01/30/24 History DULoxetine HCL [Cymbalta] 30 mg PO DAILY@89904/29/22 01/30/24 History Furosemide [Lasix] 20 mg PO Q48H 04/29/22 01/30/24 History Isosorbide Mononitrate ER [Imdur] 30 mg PO DAILY@89904/29/22 01/30/24 History Cholecalciferol [Vitamin D3 (25 25 mcg PO DAILY@89909/30/22 01/30/24 History Mcg = 1000 Iu)] Ascorbic Acid [Vitamin C] 500 mg PO DAILY@89910/27/22 01/30/24 History Atorvastatin [Lipitor] 10 mg PO HS@209903/04/23 01/30/24 History Ferrous Sulfate [Iron (65 MG 325 mg PO DAILY@89903/04/23 01/30/24 History Elemental)] QUEtiapine [SEROquel] 37.5 mg PO HS@209908/01/23 01/30/24 History amLODIPine [Norvasc] 10 mg PO DAILY@89909/05/23 01/30/24 History Donepezil [Aricept] 10 mg PO HS@209910/29/23 01/30/24 History Melatonin 5 mg PO HS@209910/29/23 01/30/24 History Acetaminophen-Codeine 300-30mg 1 tab PO Q6H PRN 3 Days #12 tablet 12/14/23 01/30/24 Rx [Tylenol w/codeine #3] Ipratropium-Albuterol Nebulize 3 ml INHALATION RT-QID #120 each 12/14/23 4 Rx [Duoneb 0.5 mg-3 mg/3 ml Soln] Acetaminophen [Tylenol 8 Hour] 650 mg PO Q6H PRN 01/30/24 01/30/24 History Clopidogrel [Plavix] 75 mg PO DAILY@0900 01/30/24 01/30/24 History Lactose-Reduced Food [Ensure Plus] 1 can PO BID@0900,2100 01/30/24 01/30/24 History Memantine [Namenda] 5 mg PO DAILY@0900 01/30/24 01/30/24 History Allergies Allergy/AdvReac Type Severity Reaction Status Date / Time No Known Allergies Allergy Verified 01/30/24 21:22 Physical Examination Inspection: Left leg is shortened and externally rotated. Negative for any open fractures, significant erythema/ecchymosis or open wounds. Sensation: Equal, symmetric, bilat intact throughout the upper and lower extremities on exam. Palpation: There is moderate tenderness to palpation over the left hip. Nontender to palpation on rest of exam. Range of motion: Patient does have good range of motion in right lower extremity and left upper extremity on exam. Left lower extremity exam limited due to fracture. Patient does have limited range of motion in the right upper extremity due to referred pain to the shoulder. Motor: Left lower extremity exam motor exam not performed due to the nature of the injury. 4/5 in all other major motor groups in bilateral upper extremities and right lower extremity. Neurovascular: Radial pulse intact, 2+ bilaterally. Cap refill under 3 seconds in digits of upper extremities. Special test: Negative Homans bilaterally. Positive logroll maneuver on the left side. Results - Labs Labs: Abnormal Lab Results - Last 24 Hours (Table) 01/30/24 01/30/24 Range/Units 20:23 20:23 RBC 3.25 L (3.80-5.40) m/uL Hgb 8.2 L (11.4-16.0) gm/dL Hct 26.6 L (34.0-46.0) % MCHC 30.7 L (31.0-37.0) g/dL RDW 18.2 H (11.5-15.5) % Chloride 97 L (98-107) mmol/L Carbon Dioxide 36 H (22-30) mmol/L Total Protein 5.6 L (6.3-8.2) g/dL Albumin 3.0 L (3.5-5.0) g/dL H & H 01/30/24 Range/Units 20:23 Hgb 8.2 L (11.4-16.0) gm/dL Hct 26.6 L (34.0-46.0) % Coagulation 01/30/24 Range/Units 20:23 INR 1.1 (<1.2) Result Diagrams: 01/30/24 20:23 01/30/24 20:23 - Diagnostic results Hip x-ray: report reviewed, image reviewed (Left hip x-ray has been reviewed. There is evident subcapital femoral neck fracture.) Assessment and Plan Assessment: 1. Left hip femoral neck fracture Plan: 1. Left hip femoral neck fracture -x-ray of the left hip is reviewed and does show left hip subcapital femoral neck fracture. I did discuss the findings and the exam and imaging with my attending, Dr. Abdullahi. At this time we are recommending orthopedic surgical intervention in the form of left hip hemiarthroplasty. Patient's son, is her power of divorce attorney and we will discuss treatment options with son before proceeding with any orthopedic surgical intervention. Due to the patient's history of CVAs and cardiac catheterization, we have consulted cardiology for clearance for surgery. Medicine on board and following. Patient to be nonweightbearing to the left lower extremity at this time. Pain medication as needed. N.p.o. beginning at midnight tonight. We have reserved a spot for surgery for the patient for tomorrow, 02/01/2024 for left hip hemiarthroplasty. Withhold blood thinners at this time. We will continue to follow patient during stay in hospital. 2. Appreciate medical and Cardio management 3. Pain management -[place]; Tylenol with codeine 4. DVT prophylaxis -with hold blood thinners at this time. SCDs and MIKEY hose 5. GI prophylaxis -Protonix 6. PT/OT -nonweightbearing left lower extremity 7. Encourage incentive spirometer use 8. Appreciate consult Time with Patient: Less than 30
--- NOTE | 2024-01-31 14:40 | P.CRDCN ---
History of Present Illness History of present illness: HISTORY OF PRESENT ILLNESS: This is a 88-year-old female with a past medical history significant for CVA, COPD, dementia, and atrial fibrillation. Patient follows in the office with Dr. Lott. We have been asked to see the patient in consultation for surgical clearance. Patient examined at the bedside. Patient is pleasantly confused at the time of examination. She is a poor historian. There is no family present. Patient was hospitalized a couple months ago and sustained a fall at that time. The patient was discharged to [facility] since that time. Apparently she has been having ongoing pain. X-rays were obtained revealing a hip fracture. The patient does report pain in her legs at the time of examination. Patient currently denies chest pain or pressure. She denies shortness of breath. DIAGNOSTICS: - EKG reveals sinus mechanism with no signs of acute ischemia - Laboratory data: WBC 5.7. Hemoglobin 8.2. Platelet count 356. Sodium 138. Potassium 3.5. BUN 15. Creatinine 0.57. - Current home cardiac medications include Eliquis 2.5 mg twice a day, Lipitor 10 mg at night, Plavix 75 mg daily, Lasix 20 mg every 2 days, Imdur 30 mg daily, amlodipine 10 mg daily - Most recent echocardiogram obtained in November 2023 revealed ejection fraction 60 to 65%, severe pulmonary hypertension, mild TR, trace MR, moderate to severe concentric LVH - Patient underwent stress testing in January 2019 which was negative for ischemia REVIEW OF SYSTEMS: At the time of my exam: CONSTITUTIONAL: Denies fever or chills. HEENT: Denies blurred vision, vision changes, or eye pain. Denies hemoptysis CARDIOVASCULAR: Denies chest pain. Denies orthopnea. Denies PND. Denies palpitat ions RESPIRATORY: Denies shortness of breath. GASTROINTESTINAL: Denies abdominal pain. Denies nausea or vomiting. HEMATOLOGIC: Denies bleeding disorders. GENITOURINARY: Denies any blood in urine. SKIN: Denies pruitis. Denies rash. PHYSICAL EXAM: VITAL SIGNS: Reviewed. GENERAL: Well-developed in no acute distress. HEENT: Head is normocephalic. Pupils are equal, round. Sclerae anicteric. Mucous membranes of the mouth are moist. Neck supple. No JVD or thyromegaly LUNGS: Respirations even and unlabored. Lungs essentially clear to auscultation bilaterally. HEART: Regular rate and rhythm. S1 and S2 heard. ABDOMEN: Soft. Nondistended. Nontender. EXTREMITIES: Normal range of motion. No clubbing or cyanosis. Peripheral pulses intact. No lower extremity edema NEUROLOGIC: Awake and alert. Oriented x 1. ASSESSMENT: Left hip fracture History of asymptomatic bradycardia Paroxysmal atrial fibrillation History of CVA History of COPD History of dementia PLAN: No need to repeat echocardiogram as this was performed in November 2023 Patient's Eliquis and Plavix remain on hold. Resume postoperatively. Continue additional cardiac medications There are no absolute contraindications for patient to proceed with surgery from a cardiac standpoint Patient is tentatively scheduled for left hip surgery tomorrow with orthopedics Further recommendations pending patient course Nurse practitioner note has been reviewed by physician. Signing provider agrees with the documented findings, assessment, and plan of care documented by DEVELOPMENT MECHANIC as a scribe. 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 Past Psychological History: Anxiety Smoking Status: Former smoker Past Alcohol Use History: None Reported Past Drug Use History: None Reported - Past Family History Brother(s) Family Medical History: Cancer Sister(s) Family Medical History: Cancer Mother Additional Family Medical History / Comment(s): enlarged heart Medications and Allergies Home Medications Medication Instructions Recorded Confirmed Type Pantoprazole [Protonix] 40 mg PO DAILY@0900 04/11/18 01/30/24 History Apixaban [Eliquis] 2.5 mg PO BID@0900,2100 04/29/22 01/30/24 History DULoxetine HCL [Cymbalta] 30 mg PO DAILY@0900 04/29/22 01/30/24 History Furosemide [Lasix] 20 mg PO Q48H 04/29/22 01/30/24 History Isosorbide Mononitrate ER [Imdur] 30 mg PO DAILY@89904/29/22 01/30/24 History Cholecalciferol [Vitamin D3 (25 25 mcg PO DAILY@89909/30/22 01/30/24 History Mcg = 1000 Iu)] Ascorbic Acid [Vitamin C] 500 mg PO DAILY@89910/27/22 01/30/24 History Atorvastatin [Lipitor] 10 mg PO HS@209903/04/23 01/30/24 History Ferrous Sulfate [Iron (65 MG 325 mg PO DAILY@89903/04/23 01/30/24 History Elemental)] QUEtiapine [SEROquel] 37.5 mg PO HS@209908/01/23 01/30/24 History amLODIPine [Norvasc] 10 mg PO DAILY@89909/05/23 01/30/24 History Donepezil [Aricept] 10 mg PO HS@209910/29/23 01/30/24 History Melatonin 5 mg PO HS@209910/29/23 01/30/24 History Acetaminophen-Codeine 300-30mg 1 tab PO Q6H PRN 3 Days #12 tablet 12/14/23 1 04/01/23 Rx [Tylenol w/codeine #3] Ipratropium-Albuterol Nebulize 3 ml INHALATION RT-QID #120 each 12/14/23 01/30/24 Rx [Duoneb 0.5 mg-3 mg/3 ml Soln] Acetaminophen [Tylenol 8 Hour] 650 mg PO Q6H PRN 01/30/24 01/30/24 History Clopidogrel [Plavix] 75 mg PO DAILY@89901/30/24 01/30/24 History Lactose-Reduced Food [Ensure Plus] 1 can PO BID@899,209901/30/24 01/30/24 History Memantine [Namenda] 5 mg PO DAILY@89901/30/24 01/30/24 History Allergies Allergy/AdvReac Type Severity Reaction Status Date / Time No Known Allergies Allergy Verified 01/30/24 21:22 Physical Exam Vitals: Vital Signs Temp Pulse Pulse Resp BP BP Pulse Ox 01/31/24 11:36 80 01/31/24 11:26 82 01/31/24 08:30 80 01/31/24 08:19 78 97 01/31/24 07:01 97.9 F 75 16 118/62 96 01/31/24 01:16 97.0 F L 77 16 133/61 98 01/30/24 22:11 98.4 F 73 18 117/54 99 01/30/24 21:41 99.1 F 64 17 128/66 98 01/30/24 19:12 97.8 F 63 18 139/61 99 Intake and Output 01/30/24 01/31/24 01/31/24 22:59 06:59 14:59 Output Total 800 Balance -800 Output: Urine 800 Other: Voiding Method Indwelling Catheter Weight 49.9 kg Results 01/30/24 20:23 01/30/24 20:23 Cardiac Enzymes 01/30/24 Range/Units 20:23 AST 18 (14-36) U/L Coagulation 01/30/24 Range/Units 20:23 PT 11.8 (10.0-12.5) sec APTT 24.4 (22.0-30.0) sec CBC 01/30/24 Range/Units 20:23 WBC 5.7 (3.8-10.6) k/uL RBC 3.25 L (3.80-5.40) m/uL Hgb 8.2 L (11.4-16.0) gm/dL Hct 26.6 L (34.0-46.0) % Plt Count 356 (150-450) k/uL Comprehensive Metabolic Panel 01/30/24 Range/Units 20:23 Sodium 138 (137-145) mmol/L Potassium 3.5 (3.5-5.1) mmol/L Chloride 97 L (98-107) mmol/L Carbon Dioxide 36 H (22-30) mmol/L BUN 15 (7-17) mg/dL Creatinine 0.57 (0.52-1.04) mg/dL Glucose 78 (74-99) mg/dL Calcium 9.7 (8.4-10.2) mg/dL AST 18 (14-36) U/L ALT 7 (4-34) U/L Alkaline Phosphatase 86 (38-126) U/L Total Protein 5.6 L (6.3-8.2) g/dL Albumin 3.0 L (3.5-5.0) g/dL Current Medications Generic Name Dose Route Start Last Admin Trade Name Freq PRN Reason Stop Dose Admin Acetaminophen 650 mg 01/30/24 20:26 Acetaminophen Tab 325 Mg Tab PO Q6HR PRN Mild Pain or Fever > 100.5 Acetaminophen 650 mg 01/30/24 21:46 Acetaminophen Tab 325 Mg Tab PO Q6H PRN Pain Acetaminophen/Codeine Phosphate 1 each 01/30/24 21:46 01/30/24 22:56 Acetaminophen-Codeine 300-30mg Tab PO 1 each Q6H PRN Administration Pain Hydrocodone Bitart/Acetaminophen 1 each 01/30/24 20:26 Hydrocodone/Apap 5-325mg 1 Each Tab PO Q4HR PRN Moderate Pain (Scale 4 to 6) Albuterol/Ipratropium 3 ml 01/31/24 08:00 01/31/24 11:25 Ipratropium-Albuterol 3 Ml Neb INHALATION 3 ml RT-QID JARETH Administration Amlodipine Besylate 10 mg 01/31/24 09:00 01/31/24 09:49 Amlodipine 10 Mg Tab PO 10 mg DAILY@09 JARETH Administration Ascorbic Acid 500 mg 01/31/24 09:00 01/31/24 09:49 Ascorbic Acid 500 Mg Tab PO 500 mg DAILY@0900 JARETH Administration Atorvastatin Calcium 10 mg 01/31/24 21:00 Atorvastatin 10 Mg Tab PO HS@2100 JARETH Cholecalciferol 25 mcg 01/31/24 09:00 01/31/24 09:49 Cholecalciferol 25 Mcg (1000 Iu) Tablet PO 25 mcg DAILY@0900 JARETH Administration Clopidogrel Bisulfate 75 mg 01/31/24 09:00 01/31/24 09:41 Clopidogrel 75 Mg Tab PO Not Given DAILY@09 [facility] Donepezil HCl 10 mg 01/31/24 21:00 Donepezil 10 Mg Tab PO HS@2100 JARETH Duloxetine HCl 30 mg 01/31/24 09:00 01/31/24 09:53 Duloxetine Hcl 30 Mg Capsule.Dr PO 30 mg DAILY@0900 [facility] Administration Ferrous Sulfate 325 mg 01/31/24 09:00 01/31/24 09:49 Ferrous Sulfate 325 Mg Tab PO 325 mg DAILY@0900 [facility] Administration Furosemide 20 mg 01/30/24 22:00 01/30/24 22:56 Furosemide 20 Mg Tab PO 20 mg Q48H JARETH Administration Isosorbide Mononitrate 30 mg 01/31/24 09:00 01/31/24 09:49 Isosorbide Mononitrate Er 30 Mg Tab.Er.24h PO 30 mg DAILY@0900 JARETH Administration Melatonin 5 mg 01/31/24 21:00 Melatonin 5 Mg Tablet PO HS@2100 [facility] Memantine 5 mg 01/31/24 09:00 01/31/24 09:49 Memantine 5 Mg Tab PO 5 mg DAILY@0900 [facility] Administration Morphine Sulfate 4 mg 01/30/24 20:26 Morphine Sulfate 4 Mg/Ml Syringe IV Q4HR PRN Severe Pain (Scale 7 to 10) Naloxone HCl 0.2 mg 01/30/24 20:26 Naloxone 0.4 Mg/Ml 1 Ml Vial IV Q2M PRN Opioid Reversal Ondansetron HCl 4 mg 01/30/24 20:26 Ondansetron 4 Mg/2 Ml Vial IVP Q8HR PRN Nausea And Vomiting Pantoprazole Sodium 40 mg 01/31/24 09:00 01/31/24 09:41 Pantoprazole 40 Mg/10 Ml Vial IV Not Given DAILY [facility] Pantoprazole Sodium 40 mg 01/31/24 09:00 01/31/24 09:49 Pantoprazole 40 Mg Tablet PO 40 mg DAILY@0900 [facility] Administration Quetiapine Fumarate 37.5 mg 01/31/24 21:00 Quetiapine 25 Mg Tab PO HS@2100 [facility] Intake and Output 01/30/24 01/31/24 01/31/24 22:59 06:59 14:59 Output Total 800 Balance -800 Output: Urine 800 Other: Voiding Method Indwelling Catheter Weight 49.9 kg 01/30/24 20:23 01/30/24 20:23
--- NOTE | 2024-01-31 18:10 | XR ---
EXAMINATION TYPE: XR Hip 2 views LT and AP Pelvis DATE OF EXAM: 01/31/2024 2:10 PM COMPARISON: 12/11/2023 CLINICAL INDICATION: Female, 88 years old with history of hip fracture, , FINDINGS: Lumbosacral fusion hardware is noted. There is [id number] degenerative change at the right hip with some axial joint space narrowing and marginal spurring. Mild degenerative spurring of the left h ip. There is some sclerosis noted at the right bilateral femoral heads. There is osteolysis demonstra kit in the region of the left femoral neck with remodeled and smooth appearance to the bony margins. IMPRESSION: 1. 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 2. Sclerotic appearance to the bilateral femoral heads may reflect underlying AVN. [facility], , 01/31/2024 6:08 PM
[2024-01-31] MEDS: ATORVASTATIN 10 MG TAB PO SCH (20:54)
[2024-01-31] MEDS: MELATONIN 5 MG TABLET PO SCH (20:54)
[2024-01-31] MEDS: QUEtiapine 25 MG TAB PO SCH (20:54)
[2024-01-31] MEDS: DONEPEZIL 10 MG TAB PO SCH (20:54)
[2024-01-31] MEDS: POTASSIUM CHLORIDE ER 20 MEQ TAB.ER PO STA (23:45)
[2024-02-01] MEDS: SODIUM CHLORIDE 0.9% 1,000 ML IV SCH (06:50)
[2024-02-01 08:32] LABS: Anisocytosis Slight; Basophils % (A) 0 %; Eosinophils # (A) 0.2 k/uL (0-0.7); Eosinophils % (A) 2 %; HCT 27.9 % (34.0-46.0); HGB 8.6 gm/dL (11.4-16.0); Hypochromasia Marked; Lymphocytes % (A) 23 %; MCH 25.1 pg (25.0-35.0); MCHC 30.8 g/dL (31.0-37.0); MCV 81.6 fL (80.0-100.0); Mean Platelet Volume 6.8; Microcytosis Slight; Monocytes # (A) 0.4 k/uL (0-1.0); Monocytes % (A) 5 %; Neutrophils # (A) 5.9 k/uL (1.3-7.7); Neutrophils % (A) 68 %; Platelet Count 376 k/uL (150-450); RBC 3.41 m/uL (3.80-5.40); RDW 18.3 % (11.5-15.5); WBC 8.7 k/uL (3.8-10.6)
[2024-02-01 08:47] LABS: African American GFR (CKD) >90 (>60 ml/min/1.73 sqM); Anion Gap 5 mmol/L; Blood Urea Nitrogen 21 mg/dL (7-17); Calcium 9.6 mg/dL (8.4-10.2); Carbon Dioxide 35 mmol/L (22-30); Chloride 98 mmol/L (98-107); Glucose 58 mg/dL (74-99); Non-African American GFR(CKD) 82 (>60 ml/min/1.73 sqM); Potassium 4.7 mmol/L (3.5-5.1); Sodium 138 mmol/L (137-145)
[2024-02-01] MEDS ORDERED: ZINC OXIDE PASTE (Z-GUARD) 1 APPLIC TOPICAL PRN (09:30)
--- NOTE | 2024-02-01 12:01 | P.PN ---
Subjective Progress Note Date: 02/01/24 Principal diagnosis: Left hip femoral neck fracture Patient was seen at bedside this morning lying in the semirecumbent position. I did discuss with both sons at bedside this morning surgical versus nonsurgical treatment options for their mother since they are the maddox of finance attorney. At this time patient's sons do not want any orthopedic surgical intervention. They want to move forward with nonoperative management and would like to discuss palliative care treatment options. Objective - Vital Signs Vital signs: Vital Signs Temp 98.0 F 02/01/24 08:10 Pulse 66 02/01/24 08:10 Resp 16 02/01/24 08:10 BP 105/62 02/01/24 08:10 Pulse Ox 94 L 02/01/24 09:25 FiO2 Intake & Output 01/31/24 02/01/24 02/01/24 18:59 06:59 18:59 Output Total 550 250 Balance -550 -250 Output: Urine 550 250 Other: Voiding Method Indwelling Catheter Indwelling Catheter Indwelling Catheter # Bowel Movements 1 - Exam Inspection: Left leg is shortened and externally rotated. Negative for any open fractures, significant erythema/ecchymosis or open wounds. Sensation: Equal, symmetric, bilat intact throughout the upper and lower extremities on exam. Palpation: There is moderate tenderness to palpation over the left hip. Nont parrish to palpation on rest of exam. Range of motion: Patient does have good range of motion in right lower extremity and left upper extremity on exam. Left lower extremity exam limited due to fracture. Patient does have limited range of motion in the right upper extremity due to referred pain to the shoulder. Motor: Left lower extremity exam motor exam not performed due to the nature of the injury. 4/5 in all other major motor groups in bilateral upper extremities and right lower extremity. Neurovascular: Radial pulse intact, 2+ bilaterally. Cap refill under 3 seconds in digits of upper extremities. Special test: Negative Homans bilaterally. Positive logroll maneuver on the left side. - Labs CBC & Chem 7: 02/01/24 08:10 02/01/24 08:10 Labs: Abnormal Lab Results - Last 24 Hours (Table) 02/01/24 02/01/24 Range/Units 08:10 08:10 RBC 3.41 L (3.80-5.40) m/uL Hgb 8.6 L (11.4-16.0) gm/dL Hct 27.9 L (34.0-46.0) % MCHC 30.8 L (31.0-37.0) g/dL RDW 18.3 H (11.5-15.5) % Carbon Dioxide 35 H (22-30) mmol/L BUN 21 H (7-17) mg/dL Glucose 58 L (74-99) mg/dL Assessment and Plan Assessment: 1. Left hip femoral neck fracture Plan: 1. Left hip femoral neck fracture -x-ray of the left hip is reviewed and does show left hip subcapital femoral neck fracture. I did discuss with both sons at bedside this morning surgical versus nonsurgical treatment options for their mother since they are the maddox of finance attorney. At this time patient's sons do not want any orthopedic surgical intervention. They want to move forward with nonoperative management and would like to discuss palliative care treatment options. We will move forward without surgery at this time. Orthopedics is signing off at this time. We will defer the rest of the care during this patient stay to the primary medicine team. Heart healthy diet. Please do not hesitate to contact us for any further questions. 2. Appreciate medical and Cardio management 3. Pain management -[place]; Tylenol with codeine 4. DVT prophylaxis -okay to resume blood thinners 5. GI prophylaxis -Protonix 6. PT/OT -nonweightbearing left lower extremity 7. Encourage incentive spirometer use Time with Patient: Less than 30
--- NOTE | 2024-02-01 12:09 | P.PN ---
Subjective HISTORY OF PRESENT ILLNESS: This is a 88-year-old female with a past medical history significant for CVA, COPD, dementia, and atrial fibrillation. Patient follows in the office with Dr. Lott. We have been asked to see the patient in consultation for surgical clearance. Patient examined at the bedside. Patient is pleasantly confused at the time of examination. She is a poor historian. There is no family present. Patient was hospitalized a couple months ago and sustained a fall at that time. The patient was discharged to [facility] since that time. Apparently she has been having ongoing pain. X-rays were obtained revealing a hip fracture. The patient does report pain in her legs at the time of examination. Patient currently denies chest pain or pressure. She denies shortness of breath. DIAGNOSTICS: - EKG reveals sinus mechanism with no signs of acute ischemia - Laboratory data: WBC 5.7. Hemoglobin 8.2. Platelet count 356. Sodium 138. Potassium 3.5. BUN 15. Creatinine 0.57. - Current home cardiac medications include Eliquis 2.5 mg twice a day, Lipitor 10 mg at night, Plavix 75 mg daily, Lasix 20 mg every 2 days, Imdur 30 mg daily, amlodipine 10 mg daily - Most recent echocardiogram obtained in November 2023 revealed ejection fraction 60 to 65%, severe pulmonary hypertension, mild TR, trace MR, moderate to severe concentric LVH - Patient underwent stress testing in January 2019 which was negative for ischemia 02/01/2024 Patient examined this morning at the bedside. Patient denies chest pain or pressure. She denies shortness of breath. Vital signs are stable. Blood pressure this morning 105/62. Per nursing, patient's family has decided against surgery. PHYSICAL EXAM: VITAL SIGNS: Reviewed. GENERAL: Well-developed in no acute distress. HEENT: Head is normocephalic. Pupils are equal, round. Sclerae anicteric. Mucous membranes of the mouth are moist. Neck supple. No JVD or thyromegaly LUNGS: Respirations even and unlabored. Lungs essentially clear to auscultation bilaterally. HEART: Regular rate and rhythm. S1 and S2 heard. ABDOMEN: Soft. Nondistended. Nontender. EXTREMITIES: Normal range of motion. No clubbing or cyanosis. Peripheral pulses intact. No lower extremity edema NEUROLOGIC: Awake and alert. Oriented x 1. ASSESSMENT: Left hip fracture History of asymptomatic bradycardia Paroxysmal atrial fibrillation History of CVA History of COPD History of dementia PLAN: No need to repeat echocardiogram as this was performed in November 2023 Patient's Eliquis and Plavix have been resumed Continue additional cardiac medications Patient's family has apparently decided not to pursue surgical intervention No further inpatient recommendations from a cardiac standpoint We will sign off. Please reconsult if needed. Nurse practitioner note has been reviewed by physician. Signing provider agrees with the documented findings, assessment, and plan of care documented by TON CYLINDER INSPECTOR as a scribe. Objective - Vital Signs Vital signs: Vital Signs Temp 98.0 F 02/01/24 08:10 Pulse 66 02/01/24 08:10 Resp 16 02/01/24 08:10 BP 105/62 02/01/24 08:10 Pulse Ox 94 L 02/01/24 09:25 FiO2 Intake & Output 01/31/24 02/01/24 02/01/24 18:59 06:59 18:59 Output Total 550 250 Balance -550 -250 Output: Urine 550 250 Other: Voiding Method Indwelling Catheter Indwelling Catheter Indwelling Catheter - Labs CBC & Chem 7: 02/01/24 08:10 02/01/24 08:10 Labs: Abnormal Lab Results - Last 24 Hours (Table) 02/01/24 02/01/24 Range/Units 08:10 08:10 RBC 3.41 L (3.80-5.40) m/uL Hgb 8.6 L (11.4-16.0) gm/dL Hct 27.9 L (34.0-46.0) % MCHC 30.8 L (31.0-37.0) g/dL RDW 18.3 H (11.5-15.5) % Carbon Dioxide 35 H (22-30) mmol/L BUN 21 H (7-17) mg/dL Glucose 58 L (74-99) mg/dL
[2024-02-01 13:24] VITALS: BMI 20.1
[2024-02-01] MEDS: APIXABAN 2.5 MG TABLET PO SCH (20:45)
[2024-02-02] MEDS ORDERED: CLOPIDOGREL 75 MG TAB PO SCH (09:00)
[2024-02-02] MEDS: CLOPIDOGREL 75 MG TAB PO SCH (09:53)
--- NOTE | 2024-02-02 18:10 | P.PN ---
Subjective Progress Note Date: 02/01/24 88-year-old female with a known history of paroxysmal atrial fibrillation on anticoagulation with Eliquis, asymptomatic bradycardia, COPD, dementia, CVA with left-sided weakness and uses a walker at baseline, hypertension hyperlipidemia, breast cancer, anxiety and prior history of smoking who is currently at [facility] since middle november percent to hospital due to worsening left hip pain. X- ray of the left hip at [facility] showed acute fracture. Patient is unable to participate in physical therapy due to pain and unable to ambulate and has been getting worse for the past 2 days. The last time she is to be using worse at present she was little over a week. Patient is unable to bear any weight on left leg and was complaining to staff of increasing pain in the left hip. No weakness or fall that there is insidiously. Patient had a fall in the hospital in November and at that time left hip x-ray was done showed negative for any acute fracture. EMS was only took the patient to [facility] however family requested transfer to our facility for further evaluation. EKG showed sinus rhythm with first-degree AV block Lab data showed WBC 5.7 hemoglobin 8.2 MCV 81.8 and platelets 356 sodium 138 potassium 3.5 chloride 97 bicarb is 36 BUN 15 and creatinine 0.57 and blood sugar 78 - Most recent echocardiogram obtained in November 2023 revealed ejection fraction 60 to 65%, severe pulmonary hypertension, mild TR, trace MR, moderate to severe concentric LVH - Patient underwent stress testing in January 2019 which was negative for ischemia Objective - Vital Signs Vital signs: Vital Signs Temp 98.0 F 02/01/24 08:10 Pulse 66 02/01/24 08:10 Resp 16 02/01/24 08:10 BP 105/62 02/01/24 08:10 Pulse Ox 94 L 02/01/24 09:25 FiO2 Intake & Output 01/31/24 02/01/24 02/01/24 18:59 06:59 18:59 Output Total 550 250 Balance -550 -250 Output: Urine 550 250 Other: Voiding Method Indwelling Catheter Indwelling Catheter Indwelling Catheter # Bowel Movements 1 - Exam Patient is lying in the bed,, no acute distress, awake alert and oriented, pleasantly confused.. HEENT: Normocephalic. Neck is supple. Pupils reactive. Nostrils clear. Oral cavity is moist. Neck reveals no JVD, carotid bruits, or thyromegaly. CHEST EXAMINATION: Trachea is central. Symmetrical expansion. Lung everett clear to auscultation and percussion. CARDIAC: Normal S1, S2 with no gallops. No murmurs ABDOMEN: Soft. Bowel sounds normal. No organomegaly. No abdominal bruits. Extremities: reveal no edema. No clubbing or cyanosis Neurologically awake, alert, oriented x 1 mild left residual weakness. Able to move all extremities while in bed. Skin: No rash or skin lesions. Psychiatric: Coperative. Could not be assessed completely Musculoskeletal: No joint swelling or deformity. Left hip decreased range of motion - Labs CBC & Chem 7: 02/01/24 08:10 02/01/24 08:10 Labs: Abnormal Lab Results - Last 24 Hours (Table) 02/01/24 02/01/24 Range/Units 08:10 08:10 RBC 3.41 L (3.80-5.40) m/uL Hgb 8.6 L (11.4-16.0) gm/dL Hct 27.9 L (34.0-46.0) % MCHC 30.8 L (31.0-37.0) g/dL RDW 18.3 H (11.5-15.5) % Carbon Dioxide 35 H (22-30) mmol/L BUN 21 H (7-17) mg/dL Glucose 58 L (74-99) mg/dL Assessment and Plan Assessment: Left hip subcapital femoral neck fracture Paroxysmal atrial fibrillation on anticoagulation with Eliquis History of CVA with residual left-sided weakness. Patient uses walker at baseline Patient manage bradycardia COPD Hypertension Hyperlipidemia History of breast cancer Anxiety Prior history of smoking Dementia Plan: Patient will be continued on telemonitoring. Continue with DuoNebs and blood pressure medications including Imdur. Orthopedic surgery was consulted. Repeat x-ray was ordered. Orthopedic surgery is planning for OR tentatively tomorrow. Plavix and Eliquis will be on hold. Cardiology was consulted for clearance. Continue to follow closely. Prognosis guarded. Replace electrolytes.
--- NOTE | 2024-02-02 18:15 | P.PN ---
Subjective Progress Note Date: 02/02/24 88-year-old female with a known history of paroxysmal atrial fibrillation on anticoagulation with Eliquis, asymptomatic bradycardia, COPD, dementia, CVA with left-sided weakness and uses a walker at baseline, hypertension hyperlipidemia, breast cancer, anxiety and prior history of smoking who is currently at [facility] since middle november percent to hospital due to worsening left hip pain. X- ray of the left hip at [facility] showed acute fracture. Patient is unable to participate in physical therapy due to pain and unable to ambulate and has been getting worse for the past 2 days. The last time she is to be using worse at present she was little over a week. Patient is unable to bear any weight on left leg and was complaining to staff of increasing pain in the left hip. No weakness or fall that there is insidiously. Patient had a fall in the hospital in November and at that time left hip x-ray was done showed negative for any acute fracture. EMS was only took the patient to [facility] however family requested transfer to our facility for further evaluation. EKG showed sinus rhythm with first-degree AV block Lab data showed WBC 5.7 hemoglobin 8.2 MCV 81.8 and platelets 356 sodium 138 potassium 3.5 chloride 97 bicarb is 36 BUN 15 and creatinine 0.57 and blood sugar 78 - Most recent echocardiogram obtained in November 2023 revealed ejection fraction 60 to 65%, severe pulmonary hypertension, mild TR, trace MR, moderate to severe concentric LVH - Patient underwent stress testing in January 2019 which was negative for ischemia --Patient is seen and evaluated with son at bedside; patient is awake alert and responsive Vital signs are reviewed and remained stable Labs are reviewed and are stable Patient's sons have decided against surgery and opting for conservative treatment; palliative care has been requested; I did discuss further plan of care with the son at bedside; palliative care service is not available at the hospital; case management has had detailed discussion with both sons yesterday giving them details on all discharge options; due to insurance reasons, patient will have to be private pay for discharge to hospice home -I did discuss with the son at bedside that patient does not have any inpatient needs since no surgery and conservative treatment is opted for Objective - Vital Signs Vital signs: Vital Signs Temp 98.2 F 02/02/24 07:05 Pulse 65 02/02/24 07:05 Resp 16 02/02/24 07:05 BP 108/63 12/07/24 07:05 Pulse Ox 96 02/02/24 07:45 FiO2 Intake & Output 02/01/24 02/02/24 02/02/24 18:59 06:59 18:59 Output Total 200 Balance -200 Weight 49.9 kg Output: Urine 200 Other: Voiding Method Indwelling Catheter Indwelling Catheter Indwelling Catheter # Voids 600 # Bowel Movements 1 - Exam Patient is lying in the bed,, no acute distress, awake alert and oriented, pleasantly confused.. HEENT: Normocephalic. Neck is supple. Pupils reactive. Nostrils clear. Oral c avity is moist. Neck reveals no JVD, carotid bruits, or thyromegaly. CHEST EXAMINATION: Trachea is central. Symmetrical expansion. Lung everett clear to auscultation and percussion. CARDIAC: Normal S1, S2 with no gallops. No murmurs ABDOMEN: Soft. Bowel sounds normal. No organomegaly. No abdominal bruits. Extremities: reveal no edema. No clubbing or cyanosis Neurologically awake, alert, oriented x 1 mild left residual weakness. Able to move all extremities while in bed. Skin: No rash or skin lesions. Psychiatric: Coperative. Could not be assessed completely Musculoskeletal: No joint swelling or deformity. Left hip decreased range of motion - Labs CBC & Chem 7: 02/01/24 08:10 02/01/24 08:10 Assessment and Plan Assessment: Left hip subcapital femoral neck fracture Paroxysmal atrial fibrillation on anticoagulation with Eliquis History of CVA with residual left-sided weakness. Patient uses walker at baseline Patient manage bradycardia COPD Hypertension Hyperlipidemia History of breast cancer Anxiety Prior history of smoking Dementia Plan: Patient will be continued on telemonitoring. Continue with DuoNebs and blood pressure medications including Imdur. Orthopedic surgery was consulted. Repeat x-ray was ordered. Orthopedic surgery is planning for OR tentatively tomorrow. Plavix and Eliquis will be on hold. Cardiology was consulted for clearance. Continue to follow closely. Prognosis guarded. Replace electrolytes.
--- NOTE | 2024-02-03 16:35 | P.PN ---
Subjective Progress Note Date: 02/03/24 88-year-old female with a known history of paroxysmal atrial fibrillation on anticoagulation with Eliquis, asymptomatic bradycardia, COPD, dementia, CVA with left-sided weakness and uses a walker at baseline, hypertension hyperlipidemia, breast cancer, anxiety and prior history of smoking who is currently at [facility] since middle november percent to hospital due to worsening left hip pain. X- ray of the left hip at [facility] showed acute fracture. Patient is unable to participate in physical therapy due to pain and unable to ambulate and has been getting worse for the past 2 days. The last time she is to be using worse at present she was little over a week. Patient is unable to bear any weight on left leg and was complaining to staff of increasing pain in the left hip. No weakness or fall that there is insidiously. Patient had a fall in the hospital in November and at that time left hip x-ray was done showed negative for any acute fracture. EMS was only took the patient to [facility] however family requested transfer to our facility for further evaluation. EKG showed sinus rhythm with first-degree AV block Lab data showed WBC 5.7 hemoglobin 8.2 MCV 81.8 and platelets 356 sodium 138 potassium 3.5 chloride 97 bicarb is 36 BUN 15 and creatinine 0.57 and blood sugar 78 - Most recent echocardiogram obtained in November 2023 revealed ejection fraction 60 to 65%, severe pulmonary hypertension, mild TR, trace MR, moderate to severe concentric LVH - Patient underwent stress testing in January 2019 which was negative for ischemia --Patient is seen and evaluated with son at bedside; patient is awake alert and responsive Vital signs are reviewed and remained stable Labs are reviewed and are stable Patient's sons have decided against surgery and opting for conservative treatment; palliative care has been requested; I did discuss further plan of care with the son at bedside; palliative care service is not available at the hospital; case management has had detailed discussion with both sons yesterday giving them details on all discharge options; due to insurance reasons, patient will have to be private pay for discharge to hospice home -I did discuss with the son at bedside that patient does not have any inpatient needs since no surgery and conservative treatment is opted for 02/03/2024 Patient is seen and evaluated and discussed with nursing staff; no specific complaints reported; patient has fair oral intake; pain under control Vital signs are reviewed and remained stable Patient admitted with left hip subcapital femoral neck fracture; cleared for surgery by cardiology service; however family has opted against surgery and requesting conservative treatment Palliative care consult was requested by family; palliative care service is not available in the hospital; various options postdischarge has been laid out to the family by case management/MACHINE STONE POLISHER; family is quite resistant to discharge options; case management/MACHINE STONE POLISHER will be back tomorrow; patient is stable for discharge Objective - Vital Signs Vital signs: Vital Signs Temp 97.7 F 02/03/24 07:08 Pulse 48 L 02/03/24 07:08 Resp 18 02/03/24 07:08 BP 96/56 02/03/24 07:08 Pulse Ox 100 02/03/24 07:08 FiO2 Intake & Output 02/02/24 02/03/24 02/03/24 18:59 06:59 18:59 Intake Total 120 Output Total 400 Balance -280 Intake: Oral 120 Output: Urine 400 Other: Voiding Method Indwelling Catheter Indwelling Catheter Indwelling Catheter # Bowel Movements 1 - Exam Patient is lying in the bed,, no acute distress, awake alert and oriented, pleasantly confused.. HEENT: Normocephalic. Neck is supple. Pupils reactive. Nostrils clear. Oral cavity is moist. Neck reveals no JVD, carotid bruits, or thyromegaly. CHEST EXAMINATION: Trachea is central. Symmetrical expansion. Lung everett clear to auscultation and percussion. CARDIAC: Normal S1, S2 with no gallops. No murmurs ABDOMEN: Soft. Bowel sounds normal. No organomegaly. No abdominal bruits. Extremities: reveal no edema. No clubbing or cyanosis Neurologically awake, alert, oriented x 1 mild left residual weakness. Able to move all extremities while in bed. Skin: No rash or skin lesions. Psychiatric: Coperative. Could not be assessed completely Musculoskeletal: No joint swelling or deformity. Left hip decreased range of motion - Labs CBC & Chem 7: 02/01/24 08:10 02/01/24 08:10 Assessment and Plan Assessment: Left hip subcapital femoral neck fracture Paroxysmal atrial fibrillation on anticoagulation with Eliquis History of CVA with residual left-sided weakness. Patient uses walker at baseline Patient manage bradycardia COPD Hypertension Hyperlipidemia History of breast cancer Anxiety Prior history of smoking Dementia Plan: Patient will be continued on telemonitoring. Continue with DuoNebs and blood pressure medications including Imdur. Orthopedic surgery was consulted. Repeat x-ray was ordered. Orthopedic surgery is planning for OR tentatively tomorrow. Plavix and Eliquis will be on hold. Cardiology was consulted for clearance. Continue to follow closely. Prognosis guarded. Replace electrolytes.
--- NOTE | 2024-02-04 12:09 | P.PN ---
Subjective 88-year-old female with a known history of paroxysmal atrial fibrillation on anticoagulation with Eliquis, asymptomatic bradycardia, COPD, dementia, CVA with left-sided weakness and uses a walker at baseline, hypertension hyperlipidemia, breast cancer, anxiety and prior history of smoking who is currently at [facility] since middle november percent to hospital due to worsening left hip pain. X- ray of the left hip at [facility] showed acute fracture. Patient is unable to participate in physical therapy due to pain and unable to ambulate and has been getting worse for the past 2 days. The last time she is to be using worse at present she was little over a week. Patient is unable to bear any weight on left leg and was complaining to staff of increasing pain in the left hip. No weakness or fall that there is insidiously. Patient had a fal l in the hospital in November and at that time left hip x-ray was done showed negative for any acute fracture. EMS was only took the patient to [facility] however family requested transfer to our facility for further evaluation. EKG showed sinus rhythm with first-degree AV block Lab data showed WBC 5.7 hemoglobin 8.2 MCV 81.8 and platelets 356 sodium 138 potassium 3.5 chloride 97 bicarb is 36 BUN 15 and creatinine 0.57 and blood sugar 78 - Most recent echocardiogram obtained in November 2023 revealed ejection fraction 60 to 65%, severe pulmonary hypertension, mild TR, trace MR, moderate to severe concentric LVH - Patient underwent stress testing in January 2019 which was negative for ischemia --Patient is seen and evaluated with son at bedside; patient is awake alert and responsive Vital signs are reviewed and remained stable Labs are reviewed and are stable Patient's sons have decided against surgery and opting for conservative treatment; palliative care has been requested; I did discuss further plan of care with the son at bedside; palliative care service is not available at the hospital; case management has had detailed discussion with both sons yesterday giving them details on all discharge options; due to insurance reasons, patient will have to be private pay for discharge to hospice home -I did discuss with the son at bedside that patient does not have any inpatient needs since no surgery and conservative treatment is opted for 02/03/2024 Patient is seen and evaluated and discussed with nursing staff; no specific complaints reported; patient has fair oral intake; pain under control Vital signs are reviewed and remained stable Patient admitted with left hip subcapital femoral neck fracture; cleared for surgery by cardiology service; however family has opted against surgery and requesting conservative treatment Palliative care consult was requested by family; palliative care service is not available in the hospital; various options postdischarge has been laid out to the family by case management/PHOTO PRODUCER; family is quite resistant to discharge options; case management/PHOTO PRODUCER will be back tomorrow; patient is stable for discharge 02/03 Patient status post left hip arthroplasty, no hip pain this morning when I saw the patient She had bowel movement She denies any other new complaint She agrees to go to rehab when she is ready No urinary symptom No chest pain or dyspnea Vitals are stable Hemoglobin stable at 8.6. Rest of labs stable Objective - Vital Signs Vital signs: Vital Signs Temp 98.9 F 02/04/24 07:03 Pulse 75 02/04/24 07:03 Resp 17 02/04/24 07:03 BP 134/61 02/04/24 07:03 Pulse Ox 98 02/04/24 07:03 FiO2 Intake & Output 02/03/24 02/04/24 02/04/24 18:59 06:59 18:59 Output Total 300 2400 Balance -300 -2400 Output: Urine 300 2400 Other: Voiding Method Indwelling Catheter Indwelling Catheter Indwelling Catheter # Bowel Movements 0 - Exam -GENERAL: The patient is alert and oriented x3, not in any acute distress. Well developed, well nourished. Generally weak HEENT: Pupils are round and equally reacting to light. EOMI. No scleral icterus. No conjunctival pallor. Normocephalic, atraumatic. No pharyngeal erythema. No thyromegaly. CARDIOVASCULAR: S1 and S2 present. No murmurs, rubs, or gallops. PULMONARY: Chest is clear to auscultation, no wheezing , no crackles. ABDOMEN: Soft, nontender, nondistended, normoactive bowel sounds. No palpable organomegaly. -MUSCULOSKELETAL: No joint swelling or deformity. No hip wound EXTREMITIES: No cyanosis, clubbing, or pedal edema. NEUROLOGICAL: Gross neurological examination did not reveal any focal deficits. SKIN: No rashes. no petechiae. - Labs CBC & Chem 7: 02/01/24 08:10 02/01/24 08:10 Assessment and Plan Assessment: Left hip subcapital femoral neck fracture. Paroxysmal atrial fibrillation on anticoagulation with Eliquis History of CVA with residual left-sided weakness. Patient uses walker at baseline Patient manage bradycardia COPD Hypertension Hyperlipidemia History of breast cancer Anxiety Prior history of smoking Dementia Chronic anemia Plan: Patient declined surgical treatment as well as family/sons No surgical treatment per orthopedic team Continue with conservative management, currently pain controlled, continue with pain management Continue with the current medication Labs and medication were reviewed.. Continue same treatment. Continue with symptomatic treatment. Resume home medication. Monitor labs and vitals. DVT and GI prophylaxis. Further recommendations as per clinical course of the patient DVT prophylaxis: Eliquis GI Prophylaxis: Protonix PT/OT: Pending Prognosis is guarded Patient is medically stable for discharge once cleared per primary team
[2024-02-05] MEDS: ACETAMINOPHEN TAB 325 MG TAB PO PRN (11:49)
--- NOTE | 2024-02-05 23:59 | P.DS ---
Providers Date of admission: 01/30/24 20:28 Attending physician: Yang Kumar Consults: 01/30/24 20:26 Consult Physician Urgent Consulting Provider: Raghu Abdullahi Consult Reason/Comments: Left hip fracture Do you want consulting provider notified?: Yes Primary care physician: Tacos Saha [facility] Course: Diagnoses: Left hip subcapital femoral neck fracture. No surgical intervention per orthopedic team based on patient and son's wishes Paroxysmal atrial fibrillation on anticoagulation with Eliquis History of CVA with residual left-sided weakness. Patient uses walker at baseline Patient manage bradycardia COPD Hypertension Hyperlipidemia History of breast cancer Anxiety Prior history of smoking Dementia Chronic anemia Hospital course: 88-year-old female with a known history of paroxysmal atrial fibrillation on anticoagulation with Eliquis, asymptomatic bradycardia, COPD, dementia, CVA with left-sided weakness and uses a walker at baseline, hypertension hyperlipidemia, breast cancer, anxiety and prior history of smoking who is currently at [facility] since middle of November percent to hospital due to worsening left hip pain. X- ray of the left hip at [facility] showed acute fracture. Patient evaluated by orthopedic team, they recommended surgical treatment for the fracture but patient family including 2 sons declined and they preferred conservative management. Today she is lying in bed fully awake and oriented. Looks somewhat generally weak given her age and condition. She denies any specific symptom no chest pain or dyspnea Patient's pain in her left hip is controlled yesterday and today. She has a Jay catheter which we recommend to keep as would be hard for the patient to go to the restroom given her fracture. However patient denies symptoms like dysuria or urgency. No suprapubic pain or tenderness. No flank pain. The suspicion of UTI is very low. No need for testing. No need for antibiotics. However patient is at risk of UTI given her Jay catheter and fracture and bedridden situation Patient agreed to be discharged today Problems and management plan were discussed with the patient and he verbalized understanding and acceptance Patient was found stable and can be discharged home in guarded prognosis however he needs follow-up as an outpatient. Patient was instructed to follow up with PCP within one week and patient agrees We recommend patient follow-up with her orthopedic in 2 weeks Physical exam -Gen: patient is a AAOx3, no distress. Generally weak CVS: S1-S2, RRR, no murmur Lungs: B/L CTA, no wheezing Abdomen: soft, no distention, no tenderness, positive bowel sounds Extremity: no leg edema or induration Time spent more than 35 minutes Plan - Discharge Summary New Discharge Prescriptions: Continue Pantoprazole [Protonix] 40 mg PO DAILY@0900 DULoxetine HCL [Cymbalta] 30 mg PO DAILY@0900 Melatonin 5 mg PO HS@2100 Acetaminophen-Codeine 300-30mg [Tylenol w/codeine #3] 1 tab PO Q6H PRN 3 Days #12 tablet PRN Reason: Pain Memantine [Namenda] 5 mg PO DAILY@0900 Isosorbide Mononitrate ER [Imdur] 30 mg PO DAILY@0900 Furosemide [Lasix] 20 mg PO Q48H Apixaban [Eliquis] 2.5 mg PO BID@899,2099 Cholecalciferol [Vitamin D3 (25 Mcg = 1000 Iu)] 25 mcg PO DAILY@0900 Ascorbic Acid [Vitamin C] 500 mg PO DAILY@0900 Atorvastatin [Lipitor] 10 mg PO HS@2100 Ferrous Sulfate [Iron (65 MG Elemental)] 325 mg PO DAILY@0900 QUEtiapine [SEROquel] 37.5 mg PO HS@2100 amLODIPine [Norvasc] 10 mg PO DAILY@0900 Donepezil [Aricept] 10 mg PO HS@2100 Ipratropium-Albuterol Nebulize [Duoneb 0.5 mg-3 mg/3 ml Soln] 3 ml INHALATION RT-QID #120 each Acetaminophen [Tylenol 8 Hour] 650 mg PO Q6H PRN PRN Reason: Pain Clopidogrel [Plavix] 75 mg PO DAILY@0900 Lactose-Reduced Food [Ensure Plus] 1 can PO BID@899,2099 Discharge Medication List Pantoprazole [Protonix] 40 mg PO DAILY@0900 04/11/18 [History] Apixaban [Eliquis] 2.5 mg PO BID@0900,209904/29/22 [History] DULoxetine HCL [Cymbalta] 30 mg PO DAILY@0900 04/29/22 [History] Furosemide [Lasix] 20 mg PO Q48H 04/29/22 [History] Isosorbide Mononitrate ER [Imdur] 30 mg PO DAILY@89904/29/22 [History] Cholecalciferol [Vitamin D3 (25 Mcg = 1000 Iu)] 25 mcg PO DAILY@89909/30/22 [History] Ascorbic Acid [Vitamin C] 500 mg PO DAILY@89910/27/22 [History] Atorvastatin [Lipitor] 10 mg PO HS@209903/04/23 [History] Ferrous Sulfate [Iron (65 MG Elemental)] 325 mg PO DAILY@89903/04/23 [History] QUEtiapine [SEROquel] 37.5 mg PO HS@209908/01/23 [History] amLODIPine [Norvasc] 10 mg PO DAILY@89909/05/23 [History] Donepezil [Aricept] 10 mg PO HS@209910/29/23 [History] Melatonin 5 mg PO HS@209910/29/23 [History] Acetaminophen-Codeine 300-30mg [Tylenol w/codeine #3] 1 tab PO Q6H PRN 3 Days #12 tablet 12/14/23 [Rx] Ipratropium-Albuterol Nebulize [Duoneb 0.5 mg-3 mg/3 ml Soln] 3 ml INHALATION RT-QID #120 each 12/14/23 [Rx] Acetaminophen [Tylenol 8 Hour] 650 mg PO Q6H PRN 01/30/24 [History] Clopidogrel [Plavix] 75 mg PO DAILY@89901/30/24 [History] Lactose-Reduced Food [Ensure Plus] 1 can PO BID@899,209901/30/24 [History] Memantine [Namenda] 5 mg PO DAILY@89901/30/24 [History] Follow up Appointment(s)/Referral(s): [facility] [NON-STAFF] - As Needed Tacos Saha MD [Primary Care Provider] - 1-2 days Raghu Abdullahi MD [STAFF PHYSICIAN] - As Needed (Orthopedic doctor) Activity/Diet/Wound Care/Special Instructions: Resume your previous diet activity as tolerated Discharge Disposition: HOME WITH HOME HEALTH SERVICES
[2024-02-06 01:03] VITALS: RESP 17
[2024-02-06 08:11] VITALS: BP 110/56; PULSE 72; TEMP 97.8
== END 2024-02-06 10:03 | disposition home health service (06) | DRG 536 ==
LOC: EC 18:53 → 4SSUR 20:28
PROVIDERS: ADMIT Hospitalist; ATTEND Hospitalist
DX: S72.012A Unspecified intracapsular fracture of left femur, initial encounter for closed fracture (principal); F03.94 Unspecified dementia, unspecified severity, with anxiety; I69.354 Hemiplegia and hemiparesis following cerebral infarction affecting left non-dominant side; I27.20 Pulmonary hypertension, unspecified; I50.9 Heart failure, unspecified; I11.0 Hypertensive heart disease with heart failure; J43.9 Emphysema, unspecified; I48.0 Paroxysmal atrial fibrillation; Z95.828 Presence of other vascular implants and grafts; R00.1 Bradycardia, unspecified; I08.1 Rheumatic disorders of both mitral and tricuspid valves; D64.9 Anemia, unspecified; E78.5 Hyperlipidemia, unspecified; Z96.642 Presence of left artificial hip joint; Z98.1 Arthrodesis status; Z91.81 History of falling; Z79.01 Long term (current) use of anticoagulants; Z79.899 Other long term (current) drug therapy; Z79.02 Long term (current) use of antithrombotics/antiplatelets; Z87.891 Personal history of nicotine dependence; Z74.01 Bed confinement status; Z85.3 Personal history of malignant neoplasm of breast
CPT/HCPCS: 73502; 80048; 80053; 85025; 85610; 85730; 86850; 86900; 86901; 93005; 94640; 94760; 99285